=== PATIENT | male | born 1940 | race Caucasian/White ===

== ENCOUNTER → 2017-07-21 | Day surgery (SDC) | payer OTHER ==
[2017-06-12 07:38] VITALS: Ht 177.8 cm; Wt 95.5 kg
[~2017-07-21] VITALS: Ht 177.8 cm; Wt 95.5 kg
[~2017-07-21] MED LIST: 500ML BSS 0.3ML EPI 1:1000PF IRRIG ONE; ACETAMINOPHEN 325 MG TAB PO PRN; ALL300 PO; AMLO-114 PO; AMVISC PLUS 0.8ML SYRINGE INT OCU ONE; APR25 PO; ATROPINE SULFATE 0.1 MG/ML 5ML SYR IV PRN; BSS FLUSH ONE; ERGO500037 PO; EpHEDrine SULFATE INJ 50 MG/ML AMP IV PRN; EpINEphrine INJ 1MG/ML AMP 1 MG/ML AMP ONE; FRS/40 PO; GLIP-197 PO; LACTATED RINGER'S 1000ML 500 ML IV SCH; LEVO75TA5 PO; LIDOCAINE 3.5% OPH GEL PER APPLICATION CHARGE ONE; LIDOCAINE HCL 1% MPF 2 ML VIAL ONE; LISI40TA PO; MAGN400T6 PO; METO1TAB69 PO; MIDAZOLAM HCL 1 MG/ML 2ML VIAL ONE; MIX: 4ML BSS 1ML EPI 1:1000 PF INSTIL ONE; OCUCOAT 1 ML SOLN IO ONE; PANT1TAB48 PO; PHENYLEPHRINE HCL 10% OP SOLN PER DROP CHARGE OPL SCH; POVIDONE-IODINE OP SOLN 30 ML BTL ONE; PROPARACAINE 0.5% OP SOLN PER DROP CHARGE OPL SCH; TAMS0.4C38 PO; TOBRAMYCIN/DEXAMETHASONE OPH OINT PER APPLN CHARGE ONE
[2017-07-21] MEDS: PHENYLEPHRINE HCL 2.5% OP SOLN PER DROP CHARGE OPL SCH ×2 (06:37→06:43)
[2017-07-21] MEDS: TROPICAMIDE 1% OP SOLN PER DROP CHARGE OPL SCH ×2 (06:38→06:44)
[2017-07-21] MEDS: CYCLOPENTOLATE HCL 1% OP SOLN PER DROP CHARGE OPL SCH ×2 (06:39→06:45)
[2017-07-21] MEDS: KETOROLAC 0.5% OP SOLN PER DROP CHARGE OPL SCH ×2 (06:40→06:46)
[2017-07-21] MEDS: GATIFLOXACIN OP SOLN PER DROP CHARGE OPL SCH ×2 (06:41→06:51)
--- NOTE | 2017-07-21 06:53 | History & Physical Bridge - [place] ---
H&P Re-Evaluation Bridge Note: I have examined the patient, reviewed the History & Physical and in the interval since the performance of the History & Physical I have noted the following changes of clinical significance: No changes noted
--- NOTE | 2017-07-21 07:32 | Discharge Instructions-SurgCtr ---
Discharge Instructions Date of Service Jul 21, 2017. Visit Reason for Visit: Cataract Left Eye Discharge Discharge Diagnosis / Problem: cataract Discharge Goals Goal(s): Improve function Activity Recommendations Activity Limitations: per Instructions/Follow-up section Anesthesia . Post Anesthesia Instructions: If you have had General Anesthesia or IV Sedation: * Do not drive today. * Resume driving when surgeon permits. * Do not make important decisions or sign legal documents today. * Call surgeon for: 1. Temperature elevations greater than 101 degrees F. 2. Uncontrollable pain. 3. Excessive bleeding. 4. Persistent nausea and vomiting. 5. Medication intolerance (nausea, vomiting or rash). * For nausea and vomiting use only clear liquids such as: tea, soda, bouillon until nausea subsides, then gradually increase diet as tolerated. * If you have any concerns or questions, call your surgeon's office. If physician is unavailable and it is an emergency, call 911 or go to the nearest emergency room. . Instructions / Follow-Up Instructions / Follow-Up ACTIVITY RECOMMENDATIONS: * No strenuous lifting, jogging or running for 4 days * No swimming or yard work for 1 week. * Limited bending is permitted, such as putting on shoes. RETURN TO SCHOOL/WORK: No work until seen by physician in office. MEDICATIONS: Resume previous medications unless instructed otherwise by your surgeon. This includes eye drops for glaucoma. Zymaxid/Gatifloxacin (wilks cap) - one drop every 2 hours until bedtime Nevanac/Ilevro/Prolensa/Ketorolac (castellanos cap) - one drop every 4 hours until bedtime Prednisolone/Durezol (white/pink cap, SHAKE WELL) - one drop every 2 hours until bedtime Starting tomorrow - all 3 drops every 4 hours until seen in the office Optive drops - as needed for discomfort SPECIAL CARE INSTRUCTIONS: * Wear eyeshield when sleeping, for four nights. * You may wear your own glasses or sunglasses while awake. * You may read or watch TV * You may shower and wash your face, but be gentle around the eye and pat dry. * Blurry vision and mild irritation are normal. * Call office if pain is more severe or vision becomes dark at . FOLLOW UP VISIT: Follow-up with Dr Chicas tomorrow. Diet Recommendations Home Diet: no limitations Procedures Procedures Performed: Left Cataract Phacoemulsification With Intraocular Lens Implant Pending Studies Studies pending at discharge: no Medical Emergencies . Who to Call and When: Medical Emergencies: If at any time you feel your situation is an emergency, please call 911 immediately. . Non-Emergent Contact Non-Emergency issues call your: Coding Educator . . "Provider Documentation" section prepared by Anirudh Chicas. .
--- NOTE | 2017-07-21 07:34 | [facility] Operative Report ---
Operative Report Date of Service Jul 21, 2017. Operative Report 1. PREOPERATIVE DIAGNOSIS: Cataract of the left eye. 2. POSTOPERATIVE DIAGNOSIS: Same. 3. PROCEDURE: Phacoemulsification with intraocular lens implantation of the left eye. SURGEON: Dr. Anirudh Chicas. ANESTHESIA: Topical Lidocaine gel, 1% Non- Preserved intracameral Lidocaine, and monitored intravenous sedation. INDICATIONS FOR THE PROCEDURE: The patient is a 77 - year-old male with a history of cataract of the left eye causing significant visual impairment. The details of the proposed procedure were explained to the patient who asked appropriate questions and following discussion of all risks, benefits and alternatives agreed to have the procedure done. The patient had a know history of taking of flomax. 4. OPERATION AND FINDINGS: DESCRIPTION OF PROCEDURE: After informed consent was obtained, the patient was brought to the Operating Room at the [facility]. The patient was placed in a supine position and then the left eye was prepped and draped in the usual sterile fashion for intraocular surgery. A drop of topical Lidocaine gel was placed in the operative eye. A wire lid speculum was then placed in the fornices. A corneal paracentesis was then created temporally. The Non-Preserved Lidocaine was then instilled into the anterior chamber. The anterior chamber was then pressurized with viscoelastic. A 2.0 mm clear corneal incision was then created temporally. A mayulgin ring was inserted to dilate and stabilize the pupil. A cystotome was inserted into the anterior chamber and used to create a tear in the anterior lens capsule. This capsular tear was then used to create a small flap and the flap was dragged in a counterclockwise direction in order to create a continuous curvilinear capsulorrhexis. Hydrodissection was accomplished with balanced salt solution. Phacoemulsification of the lens nucleus was then performed in a standard divide- and-conquer technique. The phaco time was 35 seconds with an average power of 12 %. The remaining cortical material was removed using irrigation aspiration. The capsular bag was then filled with viscoelastic. A Bausch & Lomb MI60L + 23.0 diopters lens was then loaded into the injector and injected into the capsular bag. The malyugin ring was removed. The remaining viscoelastic was removed with the irrigation aspiration handpiece. The wound was hydrated and then checked and found to be watertight. The intraocular pressure was checked and found to be adequate. The wire lid speculum was removed and the patient's face was cleaned and dried. TobraDex ointment was placed in the inferior fornix. The patient was discharged to the Recovery Room having tolerated the procedure well. There were no complications. The patient will be seen tomorrow in the office for follow-up. I attest to the content of the Intraoperative Record and any orders documented therein. Any exceptions are noted below.
[2017-07-21 07:35] VITALS: TEMP 36.7
--- NOTE | 2017-07-21 07:36 | Anesthesia Progress Nt - [facility] ---
Anesthesia Post Op Note Date & Time Jul 21, 2017 at 07:36 Vital Signs Pain Intensity: 0 Vital Signs Past 12 Hours Date Time Temp Pulse Resp B/P (MAP) Pulse Ox O2 Delivery O2 Flow Rate FiO2 07/21/17 06:27 36.9 66 16 176/81 (112) 97 Room Air Notes Mental Status: alert / awake / arousable, participated in evaluation Pt Amnestic to Procedure: Yes Nausea / Vomiting: adequately controlled Pain: adequately controlled Airway Patency, RR, SpO2: stable & adequate BP & HR: stable & adequate Hydration State: stable & adequate Anesthetic Complications: no major complications apparent
[2017-07-21 07:56] VITALS: BP 145/72; PULSE 54; O2SAT 97
== END | disposition home or self-care (01) ==
LOC: X.SURG 06:07
PROVIDERS: ATTEND Ophthalmology
DX: H26.9 Unspecified cataract (principal); I12.9 Hypertensive chronic kidney disease with stage 1 through stage 4 chronic kidney disease, or unspecified chronic kidney disease; N18.3 Chronic kidney disease, stage 3 (moderate); M06.9 Rheumatoid arthritis, unspecified; K22.70 Barrett's esophagus without dysplasia; K44.9 Diaphragmatic hernia without obstruction or gangrene; H90.3 Sensorineural hearing loss, bilateral; G25.81 Restless legs syndrome; Z86.010 Personal history of colon polyps; Z96.659 Presence of unspecified artificial knee joint; E11.9 Type 2 diabetes mellitus without complications

== ENCOUNTER → 2017-08-18 | Day surgery (SDC) | payer OTHER ==
[2017-07-29 09:46] VITALS: Ht 177.8 cm; Wt 95.5 kg
[~2017-08-18] VITALS: Ht 177.8 cm; Wt 95.5 kg
[~2017-08-18] MED LIST changes: +FENTANYL CITRATE INJ 50 MCG/1 ML 2 ML VIAL ONE; -MIX: 4ML BSS 1ML EPI 1:1000 PF INSTIL ONE; -PHENYLEPHRINE HCL 10% OP SOLN PER DROP CHARGE OPL SCH; +PHENYLEPHRINE HCL 10% OP SOLN PER DROP CHARGE OPR SCH; -PROPARACAINE 0.5% OP SOLN PER DROP CHARGE OPL SCH; +PROPARACAINE 0.5% OP SOLN PER DROP CHARGE OPR SCH
[2017-08-18] MEDS: PHENYLEPHRINE HCL 2.5% OP SOLN PER DROP CHARGE OPR SCH ×2 (07:00→07:08)
[2017-08-18] MEDS: TROPICAMIDE 1% OP SOLN PER DROP CHARGE OPR SCH ×2 (07:01→07:09)
[2017-08-18] MEDS: CYCLOPENTOLATE HCL 1% OP SOLN PER DROP CHARGE OPR SCH ×2 (07:04→07:10)
[2017-08-18] MEDS: KETOROLAC 0.5% OP SOLN PER DROP CHARGE OPR SCH ×2 (07:05→07:11)
[2017-08-18] MEDS: GATIFLOXACIN OP SOLN PER DROP CHARGE OPR SCH ×2 (07:06→07:15)
--- NOTE | 2017-08-18 07:52 | Discharge Instructions-SurgCtr ---
Discharge Instructions Date of Service Aug 18, 2017. Visit Reason for Visit: Right Cataract Discharge Discharge Diagnosis / Problem: cataract Discharge Goals Goal(s): Improve function Medications Stopped Medications Name(s): Only took five medications this morning. Activity Recommendations Activity Limitations: per Instructions/Follow-up section Anesthesia . Post Anesthesia Instructions: If you have had General Anesthesia or IV Sedation: * Do not drive today. * Resume driving when surgeon permits. * Do not make important decisions or sign legal documents today. * Call surgeon for: 1. Temperature elevations greater than 101 degrees F. 2. Uncontrollable pain. 3. Excessive bleeding. 4. Persistent nausea and vomiting. 5. Medication intolerance (nausea, vomiting or rash). * For nausea and vomiting use only clear liquids such as: tea, soda, bouillon until nausea subsides, then gradually increase diet as tolerated. * If you have any concerns or questions, call your surgeon's office. If physician is unavailable and it is an emergency, call 911 or go to the nearest emergency room. . Instructions / Follow-Up Instructions / Follow-Up DAY OF CATARACT SURGERY INSTRUCTIONS: Follow Eye Drop Instructions Below: * Wash hands before instilling eye drops. * Bring ALL EYE DROPS to your appointment tomorrow. * Wait 5 minutes between each eye drop. * Shake bottles well before using. Tape eye shield over the operative eye when sleeping. Eye Drop: ZYMAXID PROLENSA DUREZOL ( wilks Cap) ( Lyons Cap ) ( Baneberry Cap ) DAY OF SURGERY 1 DROP EVERY 2 HOURS 1 DROP EVERY 4 HOURS 1 DROP EVERY 4 HOURS INSTRUCTIONS: UNTIL BEDTIME UNTIL BEDTIME UNTIL BEDTIME DAY AFTER SURGERY INSTRUCTIONS: 1 DROP EVERY4 HOURS OF EACH EYE DROP UNTIL SEEN BY DR. NORWOOD * You may wear your own glasses or sunglasses while awake. You make me watch TV. * Make shower and or wash your face. Be gentle around the eyes and pat dry. * You may return to eating a normal diet. * Strenuous activities such as running, jogging or heavy lifting should be avoided for 4 days. * No yard work or swimming for one week after surgery. * Limited bending is permitted after surgery. And example of this would be putting on shoes. * You may drive 24 hours after your surgery, if you are comfortable with your vision. * Do not make any important decisions or sign legal documents for 24 hours after surgery. This is due to the sedation you received today. * Do not return to work or school until you have been seen by Dr. Chicas. * Resume previous systemic medications; resume eyedrops for Glaucoma. * Blurry vision and a scratchy feeling in the eye after surgery is normal. If your eye feels scratchy use the artificial tear in your post op Kit as needed. * Contact the office immediately if severe pain develops or your vision becomes dark. Address: [address] [place] [phone]. [phone] Fax Address: [address] [place] [phone] Fax Diet Recommendations Home Diet: resume previous diet Procedures Procedures Performed: Right Cataract Phacoemulsification With Intraocular Lens Implant Pending Studies Studies pending at discharge: no Medical Emergencies . Who to Call and When: Medical Emergencies: If at any time you feel your situation is an emergency, please call 911 immediately. . Non-Emergent Contact Non-Emergency issues call your: Human Resource Statistician . . "Provider Documentation" section prepared by Anirudh Chicas. .
[2017-08-18 07:53] VITALS: TEMP 36.4
--- NOTE | 2017-08-18 07:53 | [facility] Operative Report ---
Operative Report Date of Service Aug 18, 2017. Operative Report 1. PREOPERATIVE DIAGNOSIS: Cataract of the right eye. 2. POSTOPERATIVE DIAGNOSIS: Same. 3. PROCEDURE: Phacoemulsification with intraocular lens implantation of the right eye. SURGEON: Dr. Anirudh Chicas. ANESTHESIA: Topical Lidocaine gel, 1% Non- Preserved intracameral Lidocaine, and monitored intravenous sedation. INDICATIONS FOR THE PROCEDURE: The patient is a 77 - year-old male with a history of cataract of the right eye causing significant visual impairment. The details of the proposed procedure were explained to the patient who asked appropriate questions and following discussion of all risks, benefits and alternatives agreed to have the procedure done. The patient had a know history of taking of flomax and a poorly dilating pupil and therefore plans were made preoperatively to use a malyugin ring. 4. OPERATION AND FINDINGS: DESCRIPTION OF PROCEDURE: After informed consent was obtained, the patient was brought to the Operating Room at the [facility]. The patient was placed in a supine position and then the right eye was prepped and draped in the usual sterile fashion for intraocular surgery. A drop of topical Lidocaine gel was placed in the operative eye. A wire lid speculum was then placed in the fornices. A corneal paracentesis was then created temporally. The Non-Preserved Lidocaine was then instilled into the anterior chamber. The anterior chamber was then pressurized with viscoelastic. A 2.0 mm clear corneal incision was then created temporally. The malyugin ring was inserted into the pupil. A cystotome was inserted into the anterior chamber and used to create a tear in the anterior lens capsule. This capsular tear was then used to create a small flap and the flap was dragged in a counterclockwise direction in order to create a continuous curvilinear capsulorrhexis. Hydrodissection was accomplished with balanced salt solution. Phacoemulsification of the lens nucleus was then performed in a standard [id number] technique. The phaco time was 22 seconds with an average power of 8 %. The remaining cortical material was removed using irrigation aspiration. The capsular bag was then filled with viscoelastic. A Bausch & Lomb MI60L +23.0 diopters lens was then loaded into the injector and injected into the capsular bag. The malyugin ring was removed. The remaining viscoelastic was removed with the irrigation aspiration handpiece. The wound was hydrated and then checked and found to be watertight. The intraocular pressure was checked and found to be adequate. The wire lid speculum was removed and the patient's face was cleaned and dried. TobraDex ointment was placed in the inferior fornix. The patient was discharged to the Recovery Room having tolerated the procedure well. There were no complications. The patient will be seen tomorrow in the office for follow-up. I attest to the content of the Intraoperative Record and any orders documented therein. Any exceptions are noted below.
[2017-08-18 08:10] VITALS: BP 152/82; PULSE 59; O2SAT 95
--- NOTE | 2017-08-18 08:13 | Anesthesia Progress Nt - [facility] ---
Anesthesia Post Op Note Date & Time Aug 18, 2017 at 08:13 Vital Signs Vital Signs Past 12 Hours Date Time Temp Pulse Resp B/P (MAP) Pulse Ox O2 Delivery O2 Flow Rate FiO2 08/18/17 08:10 59 16 152/82 (105) 95 Room Air 08/18/17 07:53 36.4 62 18 158/83 (108) 97 Room Air 08/18/17 06:49 36.9 62 20 185/92 (123) 97 Room Air Notes Mental Status: alert / awake / arousable, participated in evaluation Pt Amnestic to Procedure: Yes Nausea / Vomiting: adequately controlled Pain: adequately controlled Airway Patency, RR, SpO2: stable & adequate BP & HR: stable & adequate Hydration State: stable & adequate Anesthetic Complications: no major complications apparent
== END | disposition home or self-care (01) ==
LOC: X.SURG 06:41
PROVIDERS: ATTEND Ophthalmology
DX: H26.9 Unspecified cataract (principal); I10 Essential (primary) hypertension; E11.9 Type 2 diabetes mellitus without complications

== ENCOUNTER 2021-07-22 18:26 | Inpatient (IN) ==
[2021-07-22 22:16] LABS: Basophils # (auto) 0.03 K/uL (0-0.2); Basophils % (auto) 0.4 %; Eosinophils # (auto) 0.48 K/uL (0-0.5); Eosinophils % (auto) 5.6 %; Hematocrit (blood only) 32.5 % (42-52); Hemoglobin 11.3 g/dL (14.0-18.0); Immature Granulocytes # (auto) 0.04 K/uL (0.00-0.02); Immature Granulocytes % (auto) 0.5 %; Lymphocytes # (auto) 2.07 K/uL (1.2-3.4); Lymphocytes % (auto) 24.2 %; Mean Corpuscular Hemoglobin 28.2 pg (25-34); Mean Corpuscular Hgb Conc 34.8 g/dL (32-36); Mean Platelet Volume 9.9 fL (7.4-10.4); Monocytes # (auto) 0.91 K/uL (0.11-0.59); Monocytes % (auto) 10.6 %; Neutrophils # (auto) 5.02 K/uL (1.4-6.5); Neutrophils % (auto) 58.7 %; Platelet Count 127 K/uL (130-400); RDW Coefficient of Variation 17.4 % (11.5-14.5); Red Blood Count 4.01 M/uL (4.7-6.1); White Blood Count 8.55 K/uL (4.8-10.8)
[2021-07-22 22:34] LABS: Alanine Aminotransferase 28 U/L (12-78); Albumin Globulin Ratio 1.2 (0.9-2); Alkaline Phosphatase 78 U/L (45-117); Aspartate Aminotransferase 23 U/L (15-37); Bilirubin,Total 0.8 mg/dl (0.2-1); Blood Urea Nitrogen 64 mg/dl (7-18); Calcium 9.1 mg/dl (8.5-10.1); Carbon Dioxide 27 mmol/L (21-32); Chloride 76 mmol/L (98-107); Creatinine Clr Calc Pharmacy 18.3 ml/min; Est GFR (African American) 16.4 ml/min; Est GFR (Non-African American) 14.2 ml/min; Globulin 3.3 gm/dl (2.5-4.0); Glucose 122 mg/dl (70-99); Potassium 3.2 mmol/L (3.5-5.1); Sodium 117 mmol/L (136-145); Total Protein 7.3 gm/dl (6.4-8.2)
[2021-07-22] MEDS ORDERED: SODIUM CHLORIDE 3 % 100 ML IV ONE (22:45)
[2021-07-22] MEDS ORDERED: FAMOTIDINE 20MG IV PUSH 20 MG/5 ML SYR IV STA (22:49)
[2021-07-22 23:01] LABS: Bilirubin Direct 0.2 mg/dl (0-0.2); Magnesium 2.1 mg/dl (1.8-2.4); Troponin I < 0.015 ng/ml (0-0.045)
[2021-07-23 00:23] LABS: Appearance Urine Clear (Clear); Bilirubin Urine Negative (Negative); Blood Urine Negative (Negative); Color Urine Yellow; Glucose Urine UA Negative (Negative); Ketones Urine Negative (Negative); Leukocyte Esterase Urine Negative (Negative); Nitrite Urine Negative (Negative); Protein Urine Negative (Negative); Specific Gravity Urine 1.007 (1.000-1.030); Urobilinogen Urine Negative (Negative); pH Urine 7.5 (4.5-7.5)
[2021-07-23 00:26] LABS: BUN Creatinine Ratio 17.1 (10-20); Calcium 9.1 mg/dl (8.5-10.1); Creatinine Clr Calc Pharmacy 18.4 ml/min; Est GFR (African American) 16.5 ml/min; Est GFR (Non-African American) 14.3 ml/min; Potassium 3.3 mmol/L (3.5-5.1)
[2021-07-23] MEDS ORDERED: SODIUM CHLORIDE 3 % 100 ML IV STA (00:55)
--- NOTE | 2021-07-23 01:01 | Emergency Department Note ---
Impression & Plan Hyponatremia, CKD (chronic kidney disease), Hypokalemia ED Provider Note NAME: WOJCIECH QUINONES AGE: 81 SEX: M ARRIVES VIA: Walk-In INFORMANT: Patient, ED PROVIDER(S): Tex Pedraza MD CHIEF COMPLAINT: Referred. Low sodium. Weak. PLAN: Disposition: Admit MEDICAL DECISION MAKING: The patient is a pleasant 81-year-old gentleman with pmhx of HTN, HLD, CKD, COPD, DM2, Hypothyroidism, BPH, Afib on Coumadin who presents emergency depa rtment for evaluation of low sodium which was identified on outpatient blood work where he reports being referred to emergency department because it was "critically low". Initially, the patient denies any symptoms however eventually did realize that he has been weaker with mild nausea, decreased appetite, fatigue and increased sleepiness. On arrival the patient is fatigued appearing but no acute distress, afebrile stable vital signs. He is mentating normally. He has no focal neurologic def icits. EKG shows afib without overt acute ischemia. No recent EKG for comparison. WBC within normal limits. H/H 11.3/32.5 and platelets 127K without prior values for comparison. Chemistry without metabolic acidosis. Sodium was 117 without prior values for comparison. Creatinine 3.76 also without prior values for comparison. Otherwise, electrolytes and LFTs without significant abnormality. Troponin negative/undetectable. UA without evidence of infection. Blood osmolality is 262 and urine osmolality 223 c/w hypervolemia. Covid-19 PCR was negative. Patient and his were agreement with plan for admission given critical sodium value. He was ordered for initial dose 100 mL of 3% normal saline. Case was discussed with Dr. Tillman, [facility] hospitalist, who will evaluate the patient for admission. Triage Nursing notes reviewed and agree them. Prior medical records reviewed Vital Signs: reviewed and remarkable for no significant abnormalities Differential diagnosis: Infection, dehydration, metabolic abnormality, hypo/hyperglycemia, electrolyte disturbance, anemia, hypoxia, cardiac sources, intracerebral event, toxicologic, neurologic, as well as other pathologies. ER treatment provided: See below. Diagnostics interpreted by me: ECG: Atrial fibrillation, 57 bpm, no ectopy, non-specific ST abnormality, no overt ST elevation or depression. Cardiac Monitoring: An order for continuous cardiac monitoring was placed and demonstrated Atrial fibrillation, 57 bpm, no ectopy. Laboratory studies: See below Consultation(s): Case was discussed with Dr. Tillman, [facility] hospitalist, who will evaluate the patient for admission. HPI: The patient is a pleasant 81-year-old gentleman with pmhx of HTN, HLD, CKD, COPD, DM2, Hypothyroidism, BPH, Afib on Coumadin who presents emergency department for evaluation of low sodium which was identified on outpatient blood work where he reports being referred to emergency department because it was "critically low". Initially, the patient denies any symptoms however eventually did realize that he has been weaker with mild nausea, decreased appetite, fatigue and increased sleepiness. ROS: See above HPI for pertinent positives & negatives. A total of 10 systems reviewed and were otherwise negative. PAST MEDICAL HISTORY:See Below PAST SURGICAL HISTORY:See Below FAMILY HISTORY:See Below SOCIAL HISTORY:See Below HOME MEDICATIONS:See Below ALLERGIES:See Below VITALS:See Below PHYSICAL EXAMINATION: GENERAL: Awake, alert, fatigued-appearing, in no distress HENT: Normocephalic, atraumatic. Oropharynx unremarkable. EYES: Normal conjunctiva. Sclera non-icteric. NECK: Supple. No nuchal rigidity. FROM. No JVD. RESPIRATORY: Clear to auscultation. CARDIAC: Regular rate, irregular rhythm. Extremities warm and well perfused. Pulses equal. ABDOMEN: Soft, non-distended. No tenderness to palpation. No rebound or guarding. No masses. RECTAL: Deferred. MUSCULOSKELETAL: Chest examination reveals no tenderness. The back is symmetrical on inspection without obvious abnormality. There is no CVA tenderness to palpation. No joint edema. LOWER EXTREMITIES: Calves are equal size bilaterally and non-tender. BLE edema. No discoloration. NEURO: Normal sensorium. No sensory or motor deficits noted. SKIN: No rash or jaundice noted. ED COURSE: Critical Care: I have personally spent greater than 35 minutes of critical care time in the direct management of this patient. This includes bedside care, interpretation of diagnostic studies, and testing, discussion with consultants, patient, and family members, and other required patient management activities. This 35 minutes is in excess of all separately billable procedures. Tex Pedraza MD Past Med/Surg History Medical History Atrial fibrillation BPH (benign prostatic hyperplasia) CKD (chronic kidney disease) COPD (chronic obstructive pulmonary disease) Hyperlipidemia Hypertension Type 2 diabetes mellitus Family History Other Family history non-contributory Social History Smoking Status: Never smoker Second Hand Exposure: No; Do You Dip or Chew Tobacco: No; Tobacco Cessation Education Requested by Patient: No Hx Alcohol Use: No Hx Substance Use: No Preferred Language: Malay Communication Ability: Effective Beliefs That Will Affect Care: None marital status: Current Living Situation: Spouse Other Information That Helps Us Care for You: No Feels Safe at Home: Yes Safety Concerns: Feels Safe At This Time Assistive Devices: Cane Allergies Allergies Allergy/AdvReac Type Severity Reaction Status Date / Time morphine AdvReac Intermediate "HALLUCINAT Verified 07/23/21 01:40 E" oxycodone AdvReac Intermediate "HALLUCINAT Verified 07/23/21 01:40 E" Penicillins AdvReac Unknown HALLUCINATI Unverified 07/23/21 01:40 ONS Home Meds Home Medications Medication Instructions Recorded Confirmed Robitussin 12 Hr Cough 0 ml PO UD 07/23/21 07/23/21 albuterol sulfate 2.5 mg INHALATION UD PRN 07/23/21 07/23/21 albuterol sulfate 90 mcg/actuation 2 puff INHALATION Q4 PRN 07/23/21 07/23/21 aerosol inhaler allopurinol 300 mg tablet 300 mg PO DAILY 07/23/21 07/23/21 amlodipine 2.5 mg tablet 2.5 mg PO DAILY 07/23/21 07/23/21 ascorbic acid (vitamin C) 500 mg 500 mg PO DAILY 07/23/21 07/23/21 tablet (Vitamin C) calcitriol 0.25 mcg capsule 0.25 mcg PO DAILY 07/23/21 07/23/21 ergocalciferol (vitamin D2) 1,250 50,000 unit PO WK 07/23/21 07/23/21 mcg (50,000 unit) capsule (Vitamin D2) gabapentin 100 mg capsule 100 mg PO TID 07/23/21 07/23/21 garlic 1,000 mg capsule 1,000 mg PO DAILY 07/23/21 07/23/21 glipizide 5 mg tablet 2.5 mg PO DIRECTED 07/23/21 07/23/21 hydralazine 100 mg tablet 100 mg PO BID 07/23/21 07/23/21 isosorbide dinitrate 20 mg tablet 20 mg PO BID 07/23/21 07/23/21 levothyroxine 88 mcg tablet 88 mcg PO DAILY 07/23/21 07/23/21 magnesium oxide 400 mg (241.3 mg 400 mg PO DAILY 07/23/21 07/23/21 magnesium) tablet metolazone 5 mg tablet 5 mg PO 3XWK 07/23/21 07/23/21 metoprolol succinate 100 mg 100 mg PO BID 07/23/21 07/23/21 tablet,extended release 24 hr multivitamin 1 tab PO DAILY 07/23/21 07/23/21 omega-3 fatty acids 1,000 mg PO DAILY 07/23/21 07/23/21 pantoprazole 40 mg tablet,delayed 40 mg PO DAILY 07/23/21 07/23/21 release tamsulosin 0.4 mg capsule 0.4 mg PO DAILY 07/23/21 07/23/21 torsemide 100 mg tablet 100 mg PO DAILY 07/23/21 07/23/21 tramadol 50 mg tablet 50 mg PO Q6H PRN 07/23/21 07/23/21 vitamin E 400 unit tablet 400 unit PO DAILY 07/23/21 07/23/21 warfarin 2.5 mg tablet 0 mg PO UD 07/23/21 07/23/21 Results & Data (ED) Vital Signs Vital Signs - 24 hr 07/22/21 18:46 07/22/21 22:16 07/22/21 23:00 Temperature 36.6 C Temperature Source Temporal Artery Scan Pulse Rate 72 64 56 L Pulse Rate from SpO2 Sensor 61 57 L Pulse Rhythm Regular Pulse Strength Normal Respiratory Rate 16 18 14 Respiratory Effort / Characteristics Non-Labored Respiratory Depth Normal Respiratory Pattern Regular Blood Pressure 107/68 144/75 H 136/82 Blood Pressure Mean 81 98 100 Blood Pressure Position Sitting Pulse Oximetry 96 100 98 Oxygen Delivery Method Room Air Sepsis Recent Fever Within 48 Hours No Sepsis New/Unexplained Change in Mental Status N/A Sepsis Action Taken by Nursing No Action Required 07/23/21 00:06 07/23/21 00:30 Temperature Temperature Source Pulse Rate 59 L 56 L Pulse Rate from SpO2 Sensor 52 L Pulse Rhythm Pulse Strength Respiratory Rate 14 19 Respiratory Effort / Characteristics Respiratory Depth Respiratory Pattern Blood Pressure 150/80 H 130/80 Blood Pressure Mean 103 96 Blood Pressure Position Pulse Oximetry 98 99 Oxygen Delivery Method Room Air Sepsis Recent Fever Within 48 Hours Sepsis New/Unexplained Change in Mental Status Sepsis Action Taken by Nursing Laboratory Data Attestation: I reviewed the patient's lab results. Result diagrams: 07/23/21 02:56 07/23/21 18:35 Lab Results 07/22/21 07/22/21 07/22/21 Range/Units 21:50 21:50 22:40 WBC 8.55 (4.8-10.8) K/uL RBC 4.01 L (4.7-6.1) M/uL Hgb 11.3 L (14.0-18.0) g/dL Hct 32.5 L (42-52) % MCV 81.0 (80-100) fL MCH 28.2 (25-34) pg MCHC 34.8 (32-36) g/dL RDW Std Deviation 51.0 H (36.4-46.3) fL RDW Coeff of Yanira 17.4 H (11.5-14.5) % Plt Count 127 L (130-400) K/uL MPV 9.9 (7.4-10.4) fL Immature Gran % (Auto) 0.5 % Neut % (Auto) 58.7 % Lymph % (Auto) 24.2 % [place] % (Auto) 10.6 % Eos % (Auto) 5.6 % Baso % (Auto) 0.4 % Neut # (Auto) 5.02 (1.4-6.5) K/uL Lymph # (Auto) 2.07 (1.2-3.4) K/uL [place] # (Auto) 0.91 H (0.11-0.59) K/uL Eos # (Auto) 0.48 (0-0.5) K/uL Baso # (Auto) 0.03 (0-0.2) K/uL Immature Gran # (Auto) 0.04 H (0.00-0.02) K/uL Sodium 117 L* (136-145) mmol/L Potassium 3.2 L (3.5-5.1) mmol/L Chloride 76 L (98-107) mmol/L Carbon Dioxide 27 (21-32) mmol/L Anion Gap 14.0 H (3-11) BUN 64 H (7-18) mg/dl Creatinine 3.78 H (0.6-1.4) mg/dl Est Cr Clr Drug Dosing 18.3 ml/min Est GFR ( Amer) 16.4 ml/min Est GFR (Non-Af Amer) 14.2 ml/min BUN/Creatinine Ratio 17.0 (10-20) Glucose 122 H (70-99) mg/dl Osmolality (280-300) mOsm/kg Calcium 9.1 (8.5-10.1) mg/dl Phosphorus 4.0 (2.5-4.9) mg/dl Magnesium 2.1 (1.8-2.4) mg/dl Total Bilirubin 0.8 (0.2-1) mg/dl Direct Bilirubin 0.2 (0-0.2) mg/dl AST 23 (15-37) U/L ALT 28 (12-78) U/L Alkaline Phosphatase 78 (45-117) U/L Troponin I < 0.015 (0-0.045) ng/ml Total Protein 7.3 (6.4-8.2) gm/dl Albumin 4.0 (3.4-5.0) gm/dl Globulin 3.3 (2.5-4.0) gm/dl Albumin/Globulin Ratio 1.2 (0.9-2) Urine Color Urine Appearance (Clear) Urine pH (4.5-7.5) Ur Specific [place] (1.000-1.030) Urine Protein (Negative) Urine Glucose (UA) (Negative) Urine Ketones (Negative) Urine Blood (Negative) Urine Nitrite (Negative) Urine Bilirubin (Negative) Urine Urobilinogen (Negative) Ur Leukocyte Esterase (Negative) Urine Osmolality (500-800) mOsm/kg Ur Random Sodium mmol/L COVID-19 Eval Order Covid19 at [facility] SARS-CoV-2 (PCR) (Negative) 07/22/21 07/22/21 07/22/21 Range/Units 22:40 22:47 22:48 WBC (4.8-10.8) K/uL RBC (4.7-6.1) M/uL Hgb (14.0-18.0) g/dL Hct (42-52) % MCV (80-100) fL MCH (25-34) pg MCHC (32-36) g/dL RDW Std Deviation (36.4-46.3) fL RDW Coeff of Yanira (11.5-14.5) % Plt Count (130-400) K/uL MPV (7.4-10.4) fL Immature Gran % (Auto) % Neut % (Auto) % Lymph % (Auto) % [place] % (Auto) % Eos % (Auto) % Baso % (Auto) % Neut # (Auto) (1.4-6.5) K/uL Lymph # (Auto) (1.2-3.4) K/uL [place] # (Auto) (0.11-0.59) K/uL Eos # (Auto) (0-0.5) K/uL Baso # (Auto) (0-0.2) K/uL Immature Gran # (Auto) (0.00-0.02) K/uL Sodium 118 L* (136-145) mmol/L Potassium 3.3 L (3.5-5.1) mmol/L Chloride 77 L (98-107) mmol/L Carbon Dioxide 27 (21-32) mmol/L Anion Gap 14.0 H (3-11) BUN 64 H (7-18) mg/dl Creatinine 3.76 H (0.6-1.4) mg/dl Est Cr Clr Drug Dosing 18.4 ml/min Est GFR ( Amer) 16.5 ml/min Est GFR (Non-Af Amer) 14.3 ml/min BUN/Creatinine Ratio 17.1 (10-20) Glucose 128 H (70-99) mg/dl Osmolality 262 L (280-300) mOsm/kg Calcium 9.1 (8.5-10.1) mg/dl Phosphorus (2.5-4.9) mg/dl Magnesium (1.8-2.4) mg/dl Total Bilirubin (0.2-1) mg/dl Direct Bilirubin (0-0.2) mg/dl AST (15-37) U/L ALT (12-78) U/L Alkaline Phosphatase (45-117) U/L Troponin I (0-0.045) ng/ml Total Protein (6.4-8.2) gm/dl Albumin (3.4-5.0) gm/dl Globulin (2.5-4.0) gm/dl Albumin/Globulin Ratio (0.9-2) Urine Color Urine Appearance (Clear) Urine pH (4.5-7.5) Ur Specific [place] (1.000-1.030) Urine Protein (Negative) Urine Glucose (UA) (Negative) Urine Ketones (Negative) Urine Blood (Negative) Urine Nitrite (Negative) Urine Bilirubin (Negative) Urine Urobilinogen (Negative) Ur Leukocyte Esterase (Negative) Urine Osmolality (500-800) mOsm/kg Ur Random Sodium mmol/L COVID-19 Eval Order SARS-CoV-2 (PCR) NEGATIVE (Negative) 07/23/21 07/23/21 07/23/21 Range/Units 00:06 00:06 00:06 WBC (4.8-10.8) K/uL RBC (4.7-6.1) M/uL Hgb (14.0-18.0) g/dL Hct (42-52) % MCV (80-100) fL MCH (25-34) pg MCHC (32-36) g/dL RDW Std Deviation (36.4-46.3) fL RDW Coeff of Yanira (11.5-14.5) % Plt Count (130-400) K/uL MPV (7.4-10.4) fL Immature Gran % (Auto) % Neut % (Auto) % Lymph % (Auto) % [place] % (Auto) % Eos % (Auto) % Baso % (Auto) % Neut # (Auto) (1.4-6.5) K/uL Lymph # (Auto) (1.2-3.4) K/uL [place] # (Auto) (0.11-0.59) K/uL Eos # (Auto) (0-0.5) K/uL Baso # (Auto) (0-0.2) K/uL Immature Gran # (Auto) (0.00-0.02) K/uL Sodium (136-145) mmol/L Potassium (3.5-5.1) mmol/L Chloride (98-107) mmol/L Carbon Dioxide (21-32) mmol/L Anion Gap (3-11) BUN (7-18) mg/dl Creatinine (0.6-1.4) mg/dl Est Cr Clr Drug Dosing ml/min Est GFR ( Amer) ml/min Est GFR (Non-Af Amer) ml/min BUN/Creatinine Ratio (10-20) Glucose (70-99) mg/dl Osmolality (280-300) mOsm/kg Calcium (8.5-10.1) mg/dl Phosphorus (2.5-4.9) mg/dl Magnesium (1.8-2.4) mg/dl Total Bilirubin (0.2-1) mg/dl Direct Bilirubin (0-0.2) mg/dl AST (15-37) U/L ALT (12-78) U/L Alkaline Phosphatase (45-117) U/L Troponin I (0-0.045) ng/ml Total Protein (6.4-8.2) gm/dl Albumin (3.4-5.0) gm/dl Globulin (2.5-4.0) gm/dl Albumin/Globulin Ratio (0.9-2) Urine Color Yellow Urine Appearance Clear (Clear) Urine pH 7.5 (4.5-7.5) Ur Specific [place] 1.007 (1.000-1.030) Urine Protein Negative (Negative) Urine Glucose (UA) Negative (Negative) Urine Ketones Negative (Negative) Urine Blood Negative (Negative) Urine Nitrite Negative (Negative) Urine Bilirubin Negative (Negative) Urine Urobilinogen Negative (Negative) Ur Leukocyte Esterase Negative (Negative) Urine Osmolality 223 L (500-800) mOsm/kg Ur Random Sodium 50 mmol/L COVID-19 Eval Order SARS-CoV-2 (PCR) (Negative) Administered Medications Allopurinol (Allopurinol 300 Mg Tab) 300 mg PO DAILY ASIM Stop: 08/22/21 08:59 Last Admin: 07/23/21 07:58 Dose: 300 mg Documented by: [id number] Amlodipine Besylate (Amlodipine Besylate 5 Mg Tab) 2.5 mg PO DAILY ASIM Stop: 08/22/21 08:59 Last Admin: 07/23/21 07:58 Dose: 2.5 mg Documented by: [id number] Ascorbic Acid (Ascorbic Acid 500 Mg Tab) 500 mg PO DAILY ASIM Stop: 08/22/21 08:59 Last Admin: 07/23/21 07:58 Dose: 500 mg Documented by: [id number] Calcitriol (Calcitriol 0.25 Mcg Capsule) 0.25 mcg PO DAILY ASIM Stop: 08/22/21 08:59 Last Admin: 07/23/21 07:57 Dose: 0.25 mcg Documented by: [id number] Gabapentin (Gabapentin 100 Mg Cap) 100 mg PO TID ASIM Stop: 08/22/21 08:59 Last Admin: 07/23/21 21:29 Dose: 100 mg Documented by: [id number] Admin: 07/23/21 14:00 Dose: 100 mg Documented by: [id number] Admin: 07/23/21 07:57 Dose: 100 mg Documented by: [id number] Hydralazine HCl (Hydralazine Tab 50 Mg Tab) 100 mg PO BID ASIM Stop: 08/22/21 08:59 Last Admin: 07/23/21 21:30 Dose: 100 mg Documented by: [id number] Admin: 07/23/21 07:57 Dose: 100 mg Documented by: [id number] Insulin Aspart (Insulin Aspart 100 Units/Ml 3 Ml Pen) 0 units SC ACHS ASIM Stop: 08/22/21 07:29 Last Admin: 07/23/21 22:13 Dose: Not Given Documented by: [id number] Cosigned by: [id number] Admin: 07/23/21 16:50 Dose: Not Given Documented by: [id number] Admin: 07/23/21 13:04 Dose: Not Given Documented by: [id number] Admin: 07/23/21 07:55 Dose: 3 units Documented by: [id number] Cosigned by: [id number] Isosorbide Dinitrate (Isosorbide Dinitrate 20 Mg Tab) 20 mg PO BID@0700,1200 AISM Stop: 08/22/21 06:59 Last Admin: 07/23/21 13:05 Dose: Not Given Documented by: [id number] Admin: 07/23/21 07:56 Dose: 20 mg Documented by: [id number] Levothyroxine Sodium (Levothyroxine Sodium 88 Mcg Tablet) 88 mcg PO DAILYBB [facility] Stop: 08/22/21 06:29 Last Admin: 07/23/21 05:57 Dose: 88 mcg Documented by: [id number] Magnesium Oxide (Magnesium Oxide 400 Mg Tab) 400 mg PO DAILY ASIM Stop: 08/22/21 08:59 Last Admin: 07/23/21 07:56 Dose: 400 mg Documented by: [id number] Metoprolol Succinate (Metoprolol Succ 50mg Ext Rel Tab) 100 mg PO BID ASIM Stop: 08/22/21 08:59 Last Admin: 07/23/21 21:31 Dose: Not Given Documented by: [id number] Admin: 07/23/21 07:57 Dose: 100 mg Documented by: [id number] Multivitamins (Multivitamin Tab) 1 tab PO DAILY ASIM Stop: 08/22/21 08:59 Last Admin: 07/23/21 07:57 Dose: 1 tab Documented by: [id number] Ondansetron HCl (Ondansetron Inj 2 Mg/Ml 2 Ml Vial) 4 mg IV Q6H PRN PRN Reason: Nausea Stop: 08/22/21 02:11 Last Admin: 07/23/21 04:50 Dose: 4 mg Documented by: [id number] Pantoprazole Sodium (Pantoprazole 40 Mg Tab) 40 mg PO DAILY ASIM Stop: 08/22/21 08:59 Last Admin: 07/23/21 07:58 Dose: 40 mg Documented by: [id number] Sodium Chloride (Sodium Chloride 1 Gm Tablet) 1 gm PO BID ASIM Stop: 08/22/21 20:59 Last Admin: 07/23/21 21:57 Dose: 1 gm Documented by: [id number] Tamsulosin HCl (Tamsulosin Hcl 0.4 Mg Cap) 0.4 mg PO DAILY ASIM Stop: 08/22/21 08:59 Last Admin: 07/23/21 07:57 Dose: 0.4 mg Documented by: [id number] Torsemide (Torsemide 100 Mg Tab) 100 mg PO QAM ASIM Stop: 08/22/21 11:59 Last Admin: 07/23/21 12:45 Dose: 100 mg Documented by: [id number] Warfarin Sodium (Warfarin Sod 2.5 Mg Tab) 2.5 mg PO DAILY@1600 ASIM Stop: 08/22/21 15:59 Last Admin: 07/23/21 16:49 Dose: 2.5 mg Documented by: [id number] Discontinued Medications Sodium Chloride (Hypertonic Saline 3%) 100 mls @ 600 mls/hr IV .Q10M ONE Stop: 07/22/21 22:54 Last Infusion: 07/22/21 23:25 Dose: 0 mls/hr Documented by: [id number] Cosigned by: [id number] Admin: 07/22/21 23:14 Dose: 600 mls/hr Documented by: [id number] Cosigned by: [id number] Famotidine (Pepcid 20mg Iv Push) 20 mg in 5 mls @ 2.5 mls/min IV NOW STA Stop: 07/22/21 22:50 Last Admin: 07/22/21 23:12 Dose: 2.5 mls/min Documented by: [id number] Sodium Chloride (Hypertonic Saline 3%) 100 mls @ 600 mls/hr IV .Q10M STA Stop: 07/23/21 01:04 Last Infusion: 07/23/21 01:40 Dose: 0 mls/hr Documented by: [id number] Cosigned by: [id number] Admin: 07/23/21 01:27 Dose: 600 mls/hr Documented by: [id number] Cosigned by: [id number] Potassium Chloride (K Sergio / Wtr) 10 meq in 100 mls @ 100 mls/hr IV Q1H ASIM Stop: 07/23/21 05:44 Last Infusion: 07/23/21 08:05 Dose: 0 mls/hr Documented by: [id number] Admin: 07/23/21 05:55 Dose: 50 mls/hr Documented by: [id number] Infusion: 07/23/21 05:30 Dose: 0 mls/hr Documented by: [id number] Admin: 07/23/21 04:05 Dose: 100 mls/hr Documented by: [id number] Furosemide 80 mg/ Syringe 8 mls @ 4 mls/min IV ONE ONE Stop: 07/23/21 21:01 Last Admin: 07/23/21 21:58 Dose: 4 mls/min Documented by: [id number] Potassium Chloride (Potassium Chloride Crtab 20 Meq Tabcr) 20 meq PO NOW STA Stop: 07/23/21 01:09 Last Admin: 07/23/21 01:25 Dose: 20 meq Documented by: [id number] Potassium Chloride (Potassium Chloride Crtab 20 Meq Tabcr) 20 meq PO NOW STA Stop: 07/23/21 03:29 Last Admin: 07/23/21 04:05 Dose: 20 meq Documented by: [id number] Discharge Plan Visit Data Chief Complaint: Abnormal Labs/Diagnostic Testing Stated Complaint: ABNORMAL LABS, LOW SODIUM Discharge Problem: Hyponatremia, CKD (chronic kidney disease), Hypokalemia Patient Disposition: Admitted As Inpatient Discharge Instructions Interventions: ED Discharge Assessment Last Done: 07/23/21 02:03
[2021-07-23] MEDS ORDERED: POTASSIUM CHLORIDE CRTAB 20 MEQ TABCR PO STA ×2 (01:08→03:28)
--- NOTE | 2021-07-23 01:58 | History and Physical Report ---
DATE OF ADMISSION: 07/23/2021. CHIEF COMPLAINT: Hyponatremia. 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 Lives with his , presents with abnormal labs of low sodium. The patient is having problems with his lower extremity edema and his diuretic dose was recently adjusted to torsemide 100 mg b.i.d., but recent labs yesterday showed sodium of 121. His metolazone dose was adjusted and torsemide he was advised to take only once daily and today again labs showed a sodium of 116. He was advised to go to ER. Here in the ER, his sodium was 117. He says he had some nausea early in the morning, but that is improved now. After 100 mL of hypertonic saline, sodium came up to 118. Currently, resting comfortably, hemodynamically stable. Denies any headache, no dizziness, no blurred vision, no earache, no runny nose, no sore throat, no cough. Appetite is okay, swallows okay. No chest pain, no shortness of breath. Currently no nausea, no abdominal pain. Somewhat constipated. No blood in the stools. Normal micturition. No burning micturition. No hematuria. Says his edema of the legs is same. He has some skin changes on the left rose. ALLERGIES: MORPHINE, OXYCODONE, PENICILLINS. PAST MEDICAL HISTORY: As mentioned above. PAST SURGICAL HISTORY: Total knee arthroplasty, carpal tunnel surgery, colonoscopy,, ear surgery, amputation of the right index finger, back surgery, injection of lumbosacral spine, knee arthroscopy, rhinoplasty, cataract surgery, cervical laminectomy, tonsillectomy, adenoidectomy, inguinal hernia repair, left rotator cuff repair, palliative pharyngoplasty. MEDICATIONS: The patient is on torsemide 100 mg p.o. daily currently, hydralazine 100 mg p.o. b.i.d., metolazone 5 mg one tablet one week 2 days and another week 3 days, amlodipine 2.5 mg p.o. daily, gabapentin 100 mg p.o. t.i.d., vitamin D 50,000 units 1 capsule p.o. weekly, allopurinol 300 mg p.o. daily, calcitriol 0.5 mcg p.o. daily, glipizide 2.5 mg p.o. b.i.d., isosorbide dinitrate 20 mg p.o. b.i.d., levothyroxine 88 mcg p.o. daily, magnesium oxide 400 mg p.o. daily, metoprolol succinate 100 mg p.o. b.i.d., Protonix 40 mg p.o. daily, Flomax 0.4 mg p.o. daily, warfarin as directed, ProAir 2 puffs q. 4 hours p.r.n., tramadol 50 mg p.o. q. 6 hours p.r.n., fish oil 1 gram p.o. daily, multivitamin one tablet p.o. daily, vitamin C 500 mg p.o. daily, vitamin E 400 units p.o. daily, albuterol nebulization q. 4 hours p.r.n. FAMILY HISTORY: Significant for brother had liver cancer; mother had lung cancer; father has gastrointestinal disorders. SOCIAL HISTORY: , no smoking. Alcohol, rarely. No drug use. REVIEW OF SYSTEMS: As per HPI. Rest of the review of systems is negative. PHYSICAL EXAMINATION: GENERAL: The patient is obese, not in acute distress. VITAL SIGNS: Temperature 36.6, pulse 56, respiratory rate 19, blood pressure 130/80, oxygen 99% on room air. HEENT: Pupils equal, round and reactive to light. Oral mucosa moist. NECK: No JVD. No neck masses. CARDIOVASCULAR: S1 and S2 heard. Regular rate and rhythm. No murmur, no gallop. RESPIRATORY SYSTEM: Normal AP diameter. No accessory muscle use. No wheezing, no crackles. ABDOMEN: Soft, bowel sounds present, nontender, no distention. CENTRAL NERVOUS SYSTEM: Alert and oriented. Speech is clear. No facial droop. Obeys commands. Moves extremities. EXTREMITIES: Bilateral lower extremity edema present with some skin changes on the left rose. LABORATORY DATA: WBC 8.5, hemoglobin 11.3, hematocrit 32.5, platelets 127. Sodium 118, potassium 3.3, chloride 77, bicarbonate 27, BUN 64, creatinine 3.76, serum glucose 128, serum osmolality 262, calcium 9.1, phosphorus 4, magnesium 2.1, total bilirubin 0.8, direct bilirubin 0.2, AST 23, ALT 28, alkaline phosphatase 78. Troponin I less than 0.015. Urinalysis negative. Urine osmolality 223. Urine random sodium 50. SARS-CoV-2 PCR negative. EKG: Atrial fibrillation, slow ventricular response at a rate of 57, nonspecific ST abnormalities. ASSESSMENT AND PLAN: This is an 81-year-old male who presents with hyponatremia. 1. Hyponatremia: Initially had some nausea, but currently asymptomatic. His sodium is 117 here. He was on torsemide and metolazone at home, which we will hold. Recently the medications were adjusted. His sodium was 138 in March 2021, was 121 in June 2021. He received 100 mL of hypertonic saline in the ER and it raised sodium from 117 to 118. Discussed with nephrology. Recommended another 100 mL of hypertonic saline and repeat labs in the morning and will repeat BMP q. 4 hours after that and nephro consult in a.m. and closely monitor in the tele floor. 2. Hypokalemia: Will replace. 3. Acute kidney injury on chronic kidney disease stage IV: Baseline creatinine of 3.3, currently creatinine of 3.76. Holding diuretics Will monitor the blood pressure in the a.m. Will monitor labs in the a.m. 4. History of hypertension: On hydralazine, Toprol-XL, amlodipine, isosorbide dinitrate. Will monitor the blood pressure. Currently holding diuretics. 5. History of diabetes: Will hold his glipizide. Placed him on insulin sliding scale. Follow the blood sugars. Follow HbA1c level. 6. History of gastroesophageal reflux disease: Continue Protonix. 7. History of atrial fibrillation: Rate controlled on Toprol-XL and Coumadin. Follow the PT/INR. 8. Benign prostatic hypertrophy: On Flomax. 9. Gout: On allopurinol. 10. Lower extremity edema, mostly from renal disease: Will monitor. 11. Thrombocytopenia: Will follow the repeat labs, needs followup. 12. Deep venous thrombosis prophylaxis: Will place on heparin subcutaneous. DISPOSITION: Closely monitor in the tele floor. Level I full code as per my discussion with the patient. PT, OT prior to discharge. Social service to help with discharge planning. Job ID: [id number] MTDD
[2021-07-23] MEDS ORDERED: POLYETHYLENE (MIRALAX) 17 GM PACK PO PRN (02:12)
[2021-07-23] MEDS ORDERED: ONDANSETRON INJ 2 MG/ML 2 ML VIAL IV PRN (02:12)
[2021-07-23] MEDS ORDERED: NITROGLYCERIN SL 0.4 MG/TAB TAB SL PRN (02:12)
[2021-07-23] MEDS ORDERED: ACETAMINOPHEN 325 MG TAB PO PRN (02:12)
[2021-07-23] MEDS ORDERED: ALBUTEROL HFA 8 GM INHALER INH PRN (02:37)
[2021-07-23] MEDS ORDERED: ALBUTEROL 0.083% NEBU SOLN 3 ML VIAL INH PRN (02:37)
[2021-07-23] MEDS ORDERED: traMADol HCL 50 MG TABLET PO PRN (02:37)
[2021-07-23 03:08] LABS: Mean Corpuscular Hgb Conc 34.9 g/dL (32-36)
[2021-07-23 03:24] LABS: INR 1.2 (0.9-1.1); Prothrombin Time 11.9 Seconds (9.0-12.0)
[2021-07-23 03:26] LABS: BUN Creatinine Ratio 18.2 (10-20); Calcium 9.1 mg/dl (8.5-10.1); Creatinine Clr Calc Pharmacy 19.3 ml/min; Est GFR (African American) 17.5 ml/min; Est GFR (Non-African American) 15.1 ml/min; Magnesium 2.2 mg/dl (1.8-2.4); Phosphorus 4.4 mg/dl (2.5-4.9)
[2021-07-23 03:27] LABS: Hematocrit (blood only) 31.2 % (42-52); Hemoglobin 10.9 g/dL (14.0-18.0); Mean Corpuscular Hemoglobin 28.2 pg (25-34); Mean Corpuscular Volume 80.8 fL (80-100); RDW Coefficient of Variation 17.2 % (11.5-14.5); RDW Standard Deviation 50.5 fL (36.4-46.3); Red Blood Count 3.86 M/uL (4.7-6.1); White Blood Count 6.53 K/uL (4.8-10.8)
[2021-07-23 03:30] LABS: Mean Platelet Volume 10.6 fL (7.4-10.4); Platelet Count 108 K/uL (130-400)
--- NOTE | 2021-07-23 03:30 | Critical Care Consultation ---
Date of Consultation July 23, 2021 Assessment & Plan (1) Hyponatremia: Reason Critically Ill: 81-year-old male presenting with hyponatremia with a sodium of 116 in the outpatient requiring close laboratory monitoring for correction of sodium. NEURO - * CAM ICU: NEGATIVE * Monitor for seizure activity in the hyponatremic patient. CARDIAC/VASCULAR - * Coronary artery disease, hypertension, A. fib. * Continue home antihypertensives and beta-yolie as prescribed. * Monitor on telemetry. RESPIRATORY - * COPD and obstructive sleep apnea. * Saturating well on room air at this time. * Home management to continue as tolerated. GI/NUTRITION - * Fluid restriction pending correction of sodium. RENAL/LYTES - * Hyponatremia: * Hypoosmolar hyponatremia. * Possibly related to diuretics. * Received total of 200 mL of hypertonic saline. * Patient without significant symptoms of hyponatremia at this time. * Will defer to nephrology for ongoing management. * Hypokalemia: * Replace appropriately. * History of CKD IV: * Appreciate nephrology ongoing management. - * No concerns at this time. ENDO - * DMII * BSGs per unit protocol. ISS --> gtt per unit policy. * Hypothyroidism: * Continue home Rx HEME - * Stable H&H * Monitor for s/s bleeding in the anticoagulated patient on coumadin. ID - * No concerns for infection at this time LINES/IV ACCESS - * PIVs x2 DVT PROPHYLAXIS - * Anticoagulated on Coumadin * SCDs Thank you for allowing us to participate in the care of this patient. Please refer to my attending physician's documentation for any further recommendations. History of Present Illness Attending Physician: Adiel Robledo MD History of Present Illness Patient is an 81-year-old male with history of diabetes, chronic kidney disease, hypothyroidism, hyperlipidemia, COPD, ABRAN, and rheumatoid arthritis who presented to the emergency department today after abnormal labs in the outpatient setting. Apparently, the patient has been been having his labs monitored with changes in his diuretics recently. He was noted to have an outpatient sodium of 116. He was directed to the emergency department for further evaluation management. Patient received 100 mL of 3% saline initially with minimal rise in his sodium. He did receive an additional 100 mL of hypertonic saline after hospitalist discussed case with nephrology. Patient admitted for management of hyponatremia. Upon evaluation in the ICU, the patient is awake, alert, and oriented. He states that he has been very tired over the last several days. Otherwise, he reports that he has had no recent dizziness, lightheadedness, headaches, blurry vision, double vision, chest pain, palpitations, nausea, vomiting, or concerns for seizure-like activity. Allergies Allergy/AdvReac Type Severity Reaction Status Date / Time morphine AdvReac Intermediate "HALLUCINAT Verified 07/23/21 01:40 E" oxycodone AdvReac Intermediate "HALLUCINAT Verified 07/23/21 01:40 E" Penicillins AdvReac Unknown HALLUCINATI Unverified 07/23/21 01:40 ONS Home Medications Medication Instructions Recorded Confirmed Type Robitussin 12 Hr Cough 0 ml PO UD 07/23/21 07/23/21 History albuterol sulfate 2.5 mg INHALATION UD PRN 07/23/21 07/23/21 History albuterol sulfate 90 mcg/actuation 2 puff INHALATION Q4 PRN 07/23/21 07/23/21 History aerosol inhaler allopurinol 300 mg tablet 300 mg PO DAILY 07/23/21 07/23/21 History amlodipine 2.5 mg tablet 2.5 mg PO DAILY 07/23/21 07/23/21 History ascorbic acid (vitamin C) 500 mg 500 mg PO DAILY 07/23/21 07/23/21 History tablet (Vitamin C) calcitriol 0.25 mcg capsule 0.25 mcg PO DAILY 07/23/21 07/23/21 History ergocalciferol (vitamin D2) 1,250 50,000 unit PO WK 07/23/21 07/23/21 History mcg (50,000 unit) capsule (Vitamin D2) gabapentin 100 mg capsule 100 mg PO TID 07/23/21 07/23/21 History garlic 1,000 mg capsule 1,000 mg PO DAILY 07/23/21 07/23/21 History glipizide 5 mg tablet 2.5 mg PO DIRECTED 07/23/21 07/23/21 History hydralazine 100 mg tablet 100 mg PO BID 07/23/21 07/23/21 History isosorbide dinitrate 20 mg tablet 20 mg PO BID 07/23/21 07/23/21 History levothyroxine 88 mcg tablet 88 mcg PO DAILY 07/23/21 07/23/21 History magnesium oxide 400 mg (241.3 mg 400 mg PO DAILY 07/23/21 07/23/21 History magnesium) tablet metolazone 5 mg tablet 5 mg PO 3XWK 07/23/21 07/23/21 History metoprolol succinate 100 mg 100 mg PO BID 07/23/21 07/23/21 History tablet,extended release 24 hr multivitamin 1 tab PO DAILY 07/23/21 07/23/21 History omega-3 fatty acids 1,000 mg PO DAILY 07/23/21 07/23/21 History pantoprazole 40 mg tablet,delayed 40 mg PO DAILY 07/23/21 07/23/21 History release tamsulosin 0.4 mg capsule 0.4 mg PO DAILY 07/23/21 07/23/21 History torsemide 100 mg tablet 100 mg PO DAILY 07/23/21 07/23/21 History tramadol 50 mg tablet 50 mg PO Q6H PRN 07/23/21 07/23/21 History vitamin E 400 unit tablet 400 unit PO DAILY 07/23/21 07/23/21 History warfarin 2.5 mg tablet 0 mg PO UD 07/23/21 07/23/21 History Patient History Social History Smoking Status: Never smoker Second Hand Exposure: No; Do You Dip or Chew Tobacco: No; Tobacco Cessation Education Requested by Patient: No Hx Alcohol Use: No Hx Substance Use: No Preferred Language: Sinhala Communication Ability: Effective Beliefs That Will Affect Care: None Current Living Situation: Spouse Other Information That Helps Us Care for You: No Feels Safe at Home: Yes Safety Concerns: Feels Safe At This Time Assistive Devices: Cane Review of Systems Review of Systems: A complete 10 point review of systems was reviewed with the patient with pertinent positives and negatives as per history of present illness. All else were negative. Physical Exam Physical Exam: VITAL SIGNS - Vital signs and nursing notes were reviewed. GENERAL - 81-year-old male appearing his stated age who is in no acute distress. Communicates well with provider and answers questions appropriately. SKIN - Without rashes. HEAD - NC/AT. EYES - PERRL with EOMI bilaterally. Sclera anicteric. EARS - No deformities of external structures noted on gross examination bila terally. NOSE - Midline and without cyanosis. MOUTH/OROPHARYNX - Without perioral cyanosis. Buccal mucosa pink and moist and without leukoplakia. NECK - Neck with FROM. No nuchal rigidity. LUNGS - Chest wall symmetric without accessory muscle use, intercostals retractions, or central cyanosis. Normal vesicular breath sounds CTA B/L. No wheezes, rales, or rhonchi appreciated. CARDIAC - RRR with S1/S2. No murmur, rubs, or gallops appreciated. ABDOMEN - Abdominal contour flat without pulsations or visible masses. BS normoactive all four quadrants. No tenderness, palpable masses, hepatosplenom egaly, or ascites noted. EXTREMITIES - No clubbing or peripheral cyanosis. Moderate pretibial edema present. +3/5 radial, posterior tibial, and dorsalis pedis pulses palpated throughout. +5/5 strength noted in UE/LE bilaterally. NEUROLOGIC - Cranial nerves II through XII grossly intact. Sensory intact to light touch throughout. PSYCH - A&Ox3 and cooperates fully with examiner. Pt is very pleasant and interacts well with examiner. Results & Data Results & Data ([facility]) Vital Signs (Past 12 Hours) Vital Signs Temp Pulse Resp BP Pulse Ox 07/23/21 00:30 56 L 19 130/80 99 07/23/21 00:06 59 L 14 150/80 H 98 07/22/21 23:00 56 L 14 136/82 98 07/22/21 22:16 64 18 144/75 H 100 07/22/21 18:46 36.6 C 72 16 107/68 96 Coding Level of Care Code 06831 Office/OBS Consult Lvl 4 Diagnoses Hyponatremia E87.1 Time Spent (min) 32
[2021-07-23 03:31] LABS: Basophils # (auto) 0.04 K/uL (0-0.2); Basophils % (auto) 0.6 %; Eosinophils # (auto) 0.39 K/uL (0-0.5); Immature Granulocytes # (auto) 0.03 K/uL (0.00-0.02); Immature Granulocytes % (auto) 0.5 %; Lymphocytes # (auto) 1.65 K/uL (1.2-3.4); Lymphocytes % (auto) 25.3 %; Monocytes # (auto) 0.47 K/uL (0.11-0.59); Monocytes % (auto) 7.2 %; Neutrophils # (auto) 3.95 K/uL (1.4-6.5); Neutrophils % (auto) 60.4 %; Ovalocytes 1+; Platelet Estimate Decreased (Normal)
[2021-07-23] MEDS: POTASSIUM CHLORIDE / WTR 10 MEQ/100 ML PLCT IV SCH ×2 (04:05→05:55)
[2021-07-23] MEDS: LEVOTHYROXINE SODIUM 88 MCG TABLET PO SCH (05:57)
[2021-07-23 07:07] LABS: Estimated Average Glucose 131 mg/dl; Hemoglobin A1C 6.2 % (4.5-5.6)
[2021-07-23] MEDS: INSULIN ASPART 100 UNITS/ML 3 ML PEN SC SCH ×4 (07:55→22:13)
[2021-07-23] MEDS: ISOSORBIDE DINITRATE 20 MG TAB PO SCH ×2 (07:56→13:05)
[2021-07-23] MEDS: MAGNESIUM OXIDE 400 MG TAB PO SCH (07:56)
[2021-07-23] MEDS: TAMSULOSIN HCL 0.4 MG CAP PO SCH (07:57)
[2021-07-23] MEDS: METOPROLOL SUCC 50MG EXT REL TAB PO SCH ×2 (07:57→21:31)
[2021-07-23] MEDS: CALCITRIOL 0.25 MCG CAPSULE PO SCH (07:57)
[2021-07-23] MEDS: hydrALAZINE TAB 50 MG TAB PO SCH ×2 (07:57→21:30)
[2021-07-23] MEDS: GABAPENTIN 100 MG CAP PO SCH ×3 (07:57→21:29)
[2021-07-23] MEDS: MULTIVITAMIN TAB PO SCH (07:57)
[2021-07-23] MEDS: ASCORBIC ACID 500 MG TAB PO SCH (07:58)
[2021-07-23] MEDS: amLODIPine BESYLATE 5 MG TAB PO SCH (07:58)
[2021-07-23] MEDS: PANTOprazole 40 MG TAB PO SCH (07:58)
[2021-07-23] MEDS: allopurinoL 300 MG TAB PO SCH (07:58)
[2021-07-23 08:14] LABS: BUN Creatinine Ratio 18.1 (10-20); Creatinine Clr Calc Pharmacy 19.1 ml/min; Est GFR (African American) 17.3 ml/min; Est GFR (Non-African American) 14.9 ml/min; Potassium 3.7 mmol/L (3.5-5.1)
[2021-07-23 11:29] LABS: BUN Creatinine Ratio 17.6 (10-20); Calcium 9.2 mg/dl (8.5-10.1); Creatinine Clr Calc Pharmacy 18.4 ml/min; Est GFR (African American) 16.5 ml/min; Est GFR (Non-African American) 14.2 ml/min; Potassium 3.6 mmol/L (3.5-5.1)
--- NOTE | 2021-07-23 12:33 | Consultation Report ---
NEPHROLOGY CONSULTATION NOTE REASON FOR CONSULTATION: Hyponatremia with CKD. HISTORY OF PRESENT ILLNESS: The patient is an 81-year-old male with significant comorbid diseases in cluding worsening CKD, which is now approaching stage V, even at outpatient. He also has obstructive sleep apnea, pulmonary hypertension, COPD, congestive heart failure, and multiple other medical prob lems. As an outpatient, he was having increasing problems with shortness of breath and increasing lo wer extremity edema despite being on a fairly hefty dose of diuretics. Metolazone was added recently and torsemide increased to 100 twice daily. He had outpatient labs done which showed serum sodium o f 116, after which he was instructed to come to the hospital for admission and further management. C ompared to recent increase in diuretics, his edema has gone down, his weight has gone down, and his s hortness of breath has improved. At this time, he appears very comfortable and is on room air, but h e does have some lower extremity edema. Since admission, he has received hypertonic saline, but it r eally has not changed his serum sodium much as most recent sodium just few minutes ago was still 119. At this time, both diuretics are on hold. He has not received salt tablet, urea, or any other evin tment for hyponatremia. He is on fluid restriction of 2 liters at this time. He is making urine, al though it is not documented accurately. ALLERGIES: MORPHINE, OXYCODONE, PENICILLIN. PAST MEDICAL HISTORY: Includes type 2 diabetes, secondary hyperparathyroidism, chronic kidney disease stage IV, now approaching stage V, massive proteinuria of 11 grams, hypertriglyceridemia, COPD, pulm onary hypertension, obstructive sleep apnea, atrial fibrillation, congestive heart failure, GERD, saman al osteodystrophy, gout, rheumatoid arthritis. PAST SURGICAL HISTORY: Knee arthroplasty, carpal tunnel surgery, colonoscopy, ear surgery, amputatio n of the right index finger, back surgery, injection into the spine, cervical laminectomy, tonsillect dorie, adenoidectomy, hernia repair. MEDICATION: At home was reviewed and is as per the reconciliation list. The patient was started on metolazone recently. He is also on torsemide 100 twice daily. All his medications were reviewed in detail and is as per the reconciliation list. FAMILY HISTORY: Significant for brother with liver cancer, no ESRD in the family. SOCIAL HISTORY: He is . No smoking, no alcohol, no drugs. REVIEW OF SYSTEMS: As detailed in HPI, unless stated otherwise 12 systems reviewed and negative. Po sitive review of systems includes recent increasing lower extremity edema, shortness of breath, and w eight gain, which has since improved. PHYSICAL EXAMINATION: GENERAL: The patient is not in any respiratory distress at this time. He is awake, alert, oriented x3. HEENT: Mucous membrane is moist. NECK: Supple. No jugular venous distention. VITAL SIGNS: 99% on room air, blood pressure is 121/62, pulse rate 47, temperature 36.9. CHEST: Bilateral decreased breath sounds, prolonged expiration. CARDIOVASCULAR: S1 and S2, regular. ABDOMEN: Soft, nontender. EXTREMITIES: Shows trace to 1+ edema, but this is substantially less than what he had in the recent past. He does have some skin changes in his left lower extremity along the tibial border LABORATORY TESTS: Sodium this morning most recent is 119, potassium 3.6, BUN 67, creatinine 3.77. Ur ine sodium was 50. Urine osmolality was 223. Otherwise, urine was unremarkable. ASSESSMENT AND PLAN: An 81-year-old male with chronic kidney disease stage IV, now approaching chron ic kidney disease V admitted with hyponatremia. Hyponatremia: This is in the setting of worsening chronic kidney disease with nephrotic range protei ashley and recent escalation of diuretics. He has been on torsemide for a long time without hyponatre connor. I believe the recent addition of metolazone is the main culprit as well as high fluid intake. I do not think the patient is following a fluid restricted diet. RECOMMENDATIONS: 1. No more hypertonic saline. 2. BMP every 6 hours. 3. Torsemide 100 daily to be restarted. This was his longstanding dose for a long time. 4. Do not use metolazone and we would not use it even as an outpatient and listed as an allergy. 5. Even after hospital discharge, he will need frequent labs 2-3 times a week before we see a stable serum sodium and renal function. 6. Recent decline in the kidney function, but this started even before escalation of diuretics. Garima ck urine protein to creatinine ratio. No further workup is needed for acute renal failure other than a renal ultrasound. Job ID: [id number]
[2021-07-23 12:43] LABS: BUN Creatinine Ratio 18.2 (10-20); Calcium 9.5 mg/dl (8.5-10.1); Creatinine Clr Calc Pharmacy 18.8 ml/min; Est GFR (Non-African American) 14.6 ml/min; Potassium 3.5 mmol/L (3.5-5.1)
[2021-07-23] MEDS: TORSEMIDE 100 MG TAB PO SCH (12:45)
--- NOTE | 2021-07-23 14:28 | Ultrasound Report ---
ULTRASOUND KIDNEYS AND BLADDER CLINICAL HISTORY: Acute on chronic renal insufficiency. COMPARISON STUDY: Abdominal CT dated 05/31/2019 TECHNIQUE: Real-time, grayscale, and color flow sonography of the kidneys and bladder is performed. I mages are reviewed in the transverse and longitudinal planes. FINDINGS: Kidneys: The kidneys are atrophic and echogenic consistent with medical renal disease. The right kidn ey measures 8.7 x 5.0 x 3.6 cm and the left kidney measures 11.2 x 5.3 x 5.8 cm. There is no hydrone phrosis. No shadowing renal calculi are identified. Bilateral renal cysts measure up to 3.4 cm. There is no sonographic evidence of contour deforming renal mass lesion. No perinephric fluid is identifie d. Bladder: The bladder wall appears thickened and trabeculated indicating chronic outlet obstruction. O nly the right ureteral jet was seen. IMPRESSION: 1. The kidneys are atrophic and echogenic consistent with medical renal disease. 2. There is no hydronephrosis. 3. The appearance of the bladder suggests chronic outlet obstruction. ACT 112: Negative or not required by law. Electronically signed by: Pierce Pacheco M.D. 07/23/2021 2:27 PM
--- NOTE | 2021-07-23 14:43 | Hospitalist Progress Note ---
Date of Service July 23, 2021 Assessment & Plan (1) Hyponatremia: Plan: This is an 81-year-old male who presents with hyponatremia. 1. Hyponatremia: Initially had some nausea, mild GORDON but currently asymptomatic. His sodium is 117 on admission here. He was on torsemide and metolazone at home, which were hold initially. Recently the medications were adjusted. His sodium was 138 in March 2021, was 121 in June 2021. He received 100 mL of hypertonic saline in the ER and it raised sodium from 117 to 118. Discussed with nephrology. Received another 100 mL of hypertonic saline in ICU. Nephrology consulted Hyponatremia in the setting of worsening CKD with nephrotic range proteinuria and recent escalation of diuretics. He has been on torsemide for a long time without hyponatremia. I believe the recent addition of metolazone is the main culprit as well as high fluid intake. I do not think the patient is following a fluid restricted diet. No more hypertonic saline Repeat BMP every 6 hours Torsemide 100 daily to be restarted. This was his longstanding dose for a long time. Do not use metolazone and we would not use it even as an outpatient and listed as an allergy. Even after hospital discharge, he will need frequent labs 2-3 times a week before we see a stable serum sodium and renal function. Recent decline in the kidney function, but this started even before escalation of diuretics. Check urine protein to creatinine ratio. No further workup is needed for acute renal failure other than a renal ultrasound. 2. Hypokalemia: Will replace. 3. Acute kidney injury on chronic kidney disease stage IV going on stage V: Baseline creatinine of 3.3, currently creatinine of 3.76. Management per nephrology, as above. 4. History of hypertension: On hydralazine, Toprol-XL, amlodipine, isosorbide dinitrate. Will monitor the blood pressure. 5. History of diabetes: Will hold his glipizide. Placed him on insulin sliding scale. Follow the blood sugars. Follow HbA1c level. 6. GERD: Continue Protonix. 7. Atrial fibrillation: Rate controlled on Toprol-XL and Coumadin. Follow the PT/INR. 8. BPH: On Flomax. 9. Gout: On allopurinol. 10. LE edema, mostly from renal disease: Will monitor. Seems improved. 11. Thrombocytopenia: Will follow the repeat labs, needs followup. DVT prophylaxis: heparin subcutaneous. DISPOSITION: Closely monitor in the tele floor. PT, OT prior to discharge. Social service to help with discharge planning. Code: full code as per my discussion with the patient. Admission and Anticipated Discharge Date Admission Date: July 23, 2021 Subjective Patient seen in follow-up of hyponatremia Currently in ICU, received hypertonic saline This morning had some nausea and headache, now feels improved and has no complaints Also denies any chest pain, shortness of breath, abdominal pain, nausea or vomiting, says he did have a bowel movement Seen by nephrology Review of Systems Review of Systems: All systems reviewed & are unremarkable except as noted in Subjective Physical Exam Physical Exam: GENERAL: obese, elderly M, not in acute distress. HEENT: NC/AT, EOMI, Pupils equal, round and reactive to light. Oral mucosa moist. NECK: No JVD. No neck masses. CARDIOVASCULAR: S1 and S2 heard. Regular rate and rhythm. No murmur, no gallop. RESPIRATORY: Normal AP diameter. No accessory muscle use. No wheezing, no crackles. ABDOMEN: Soft, bowel sounds present, nontender, no distention. NEURO: Alert and oriented x3. Speech is clear. No facial droop. Obeys commands. Moves extremities. EXTREMITIES: Bilateral lower extremity edema (improved) present with some skin changes on the left rose. Results & Data Results & Data ([facility]) Vital Signs (Past 12 Hours) Vital Signs Pulse BP Pulse Ox 07/23/21 13:00 56 L 128/72 98 07/23/21 12:30 63 98 07/23/21 12:03 82 96 07/23/21 11:02 47 L 121/62 97 07/23/21 10:30 58 L 98 07/23/21 10:02 74 93 07/23/21 09:00 56 L 108/58 L 97 07/23/21 08:01 63 106/92 99 07/23/21 08:00 62 07/23/21 07:03 78 147/87 H 89 L 07/23/21 06:01 65 153/77 H 99 07/23/21 05:01 55 L 155/71 H 98 07/23/21 04:45 65 129/63 93 07/23/21 04:00 54 L 148/84 H 99 07/23/21 03:01 58 L 138/71 100 Laboratory Results 07/23/21 07/23/21 07/23/21 Range/Units Unknown 12:13 11:06 WBC (4.8-10.8) K/uL RBC (4.7-6.1) M/uL Hgb (14.0-18.0) g/dL Hct (42-52) % MCV (80-100) fL MCH (25-34) pg MCHC (32-36) g/dL RDW Std Deviation (36.4-46.3) fL RDW Coeff of Yanira (11.5-14.5) % Plt Count (130-400) K/uL MPV (7.4-10.4) fL Immature Gran % (Auto) % Neut % (Auto) % Lymph % (Auto) % [place] % (Auto) % Eos % (Auto) % Baso % (Auto) % Neut # (Auto) (1.4-6.5) K/uL Lymph # (Auto) (1.2-3.4) K/uL [place] # (Auto) (0.11-0.59) K/uL Eos # (Auto) (0-0.5) K/uL Baso # (Auto) (0-0.2) K/uL Immature Gran # (Auto) (0.00-0.02) K/uL Platelet Estimate (Normal) Ovalocytes PT (9.0-12.0) Seconds INR (0.9-1.1) Sodium 120 L (136-145) mmol/L Potassium 3.5 (3.5-5.1) mmol/L Chloride 81 L (98-107) mmol/L Carbon Dioxide 28 (21-32) mmol/L Anion Gap 11.0 (3-11) BUN 67 H (7-18) mg/dl Creatinine 3.68 H (0.6-1.4) mg/dl Est Cr Clr Drug Dosing 18.8 ml/min Est GFR ( Amer) 17.0 ml/min Est GFR (Non-Af Amer) 14.6 ml/min BUN/Creatinine Ratio 18.2 (10-20) Glucose 120 H (70-99) mg/dl POC Glucose 151 H (70-99) mg/dl Estimat Average Glucose mg/dl Hemoglobin A1c (4.5-5.6) % Osmolality (280-300) mOsm/kg Calcium 9.5 (8.5-10.1) mg/dl Phosphorus (2.5-4.9) mg/dl Magnesium (1.8-2.4) mg/dl Total Bilirubin (0.2-1) mg/dl Direct Bilirubin (0-0.2) mg/dl AST (15-37) U/L ALT (12-78) U/L Alkaline Phosphatase (45-117) U/L Troponin I (0-0.045) ng/ml Total Protein (6.4-8.2) gm/dl Albumin (3.4-5.0) gm/dl Globulin (2.5-4.0) gm/dl Albumin/Globulin Ratio (0.9-2) Urine Color Urine Appearance (Clear) Urine pH (4.5-7.5) Ur Specific [place] (1.000-1.030) Urine Protein (Negative) Urine Glucose (UA) (Negative) Urine Ketones (Negative) Urine Blood (Negative) Urine Nitrite (Negative) Urine Bilirubin (Negative) Urine Urobilinogen (Negative) Ur Leukocyte Esterase (Negative) Urine Osmolality (500-800) mOsm/kg Ur Random Sodium mmol/L Nasal Screen MRSA (PCR) Negative (Negative) COVID-19 Eval Order SARS-CoV-2 (PCR) (Negative) 07/23/21 07/23/21 07/23/21 Range/Units 10:44 07:13 06:57 WBC (4.8-10.8) K/uL RBC (4.7-6.1) M/uL Hgb (14.0-18.0) g/dL Hct (42-52) % MCV (80-100) fL MCH (25-34) pg MCHC (32-36) g/dL RDW Std Deviation (36.4-46.3) fL RDW Coeff of Yanira (11.5-14.5) % Plt Count (130-400) K/uL MPV (7.4-10.4) fL Immature Gran % (Auto) % Neut % (Auto) % Lymph % (Auto) % [place] % (Auto) % Eos % (Auto) % Baso % (Auto) % Neut # (Auto) (1.4-6.5) K/uL Lymph # (Auto) (1.2-3.4) K/uL [place] # (Auto) (0.11-0.59) K/uL Eos # (Auto) (0-0.5) K/uL Baso # (Auto) (0-0.2) K/uL Immature Gran # (Auto) (0.00-0.02) K/uL Platelet Estimate (Normal) Ovalocytes PT (9.0-12.0) Seconds INR (0.9-1.1) Sodium 119 L* 119 L* (136-145) mmol/L Potassium 3.6 3.7 D (3.5-5.1) mmol/L Chloride 80 L 79 L (98-107) mmol/L Carbon Dioxide 27 27 (21-32) mmol/L Anion Gap 12.0 H 13.0 H (3-11) BUN 67 H 66 H (7-18) mg/dl Creatinine 3.77 H 3.62 H (0.6-1.4) mg/dl Est Cr Clr Drug Dosing 18.4 19.1 ml/min Est GFR ( Amer) 16.5 17.3 ml/min Est GFR (Non-Af Amer) 14.2 14.9 ml/min BUN/Creatinine Ratio 17.6 18.1 (10-20) Glucose 138 H 112 H (70-99) mg/dl POC Glucose 127 H (70-99) mg/dl Estimat Average Glucose mg/dl Hemoglobin A1c (4.5-5.6) % Osmolality (280-300) mOsm/kg Calcium 9.2 10.0 (8.5-10.1) mg/dl Phosphorus (2.5-4.9) mg/dl Magnesium (1.8-2.4) mg/dl Total Bilirubin (0.2-1) mg/dl Direct Bilirubin (0-0.2) mg/dl AST (15-37) U/L ALT (12-78) U/L Alkaline Phosphatase (45-117) U/L Troponin I (0-0.045) ng/ml Total Protein (6.4-8.2) gm/dl Albumin (3.4-5.0) gm/dl Globulin (2.5-4.0) gm/dl Albumin/Globulin Ratio (0.9-2) Urine Color Urine Appearance (Clear) Urine pH (4.5-7.5) Ur Specific [place] (1.000-1.030) Urine Protein (Negative) Urine Glucose (UA) (Negative) Urine Ketones (Negative) Urine Blood (Negative) Urine Nitrite (Negative) Urine Bilirubin (Negative) Urine Urobilinogen (Negative) Ur Leukocyte Esterase (Negative) Urine Osmolality (500-800) mOsm/kg Ur Random Sodium mmol/L Nasal Screen MRSA (PCR) (Negative) COVID-19 Eval Order SARS-CoV-2 (PCR) (Negative) 07/23/21 07/23/21 07/23/21 Range/Units 02:56 02:56 02:56 WBC (4.8-10.8) K/uL RBC (4.7-6.1) M/uL Hgb (14.0-18.0) g/dL Hct (42-52) % MCV (80-100) fL MCH (25-34) pg MCHC (32-36) g/dL RDW Std Deviation (36.4-46.3) fL RDW Coeff of Yanira (11.5-14.5) % Plt Count (130-400) K/uL MPV (7.4-10.4) fL Immature Gran % (Auto) % Neut % (Auto) % Lymph % (Auto) % [place] % (Auto) % Eos % (Auto) % Baso % (Auto) % Neut # (Auto) (1.4-6.5) K/uL Lymph # (Auto) (1.2-3.4) K/uL [place] # (Auto) (0.11-0.59) K/uL Eos # (Auto) (0-0.5) K/uL Baso # (Auto) (0-0.2) K/uL Immature Gran # (Auto) (0.00-0.02) K/uL Platelet Estimate (Normal) Ovalocytes PT 11.9 (9.0-12.0) Seconds INR 1.2 H (0.9-1.1) Sodium 120 L (136-145) mmol/L Potassium 3.0 L (3.5-5.1) mmol/L Chloride 81 L (98-107) mmol/L Carbon Dioxide 29 (21-32) mmol/L Anion Gap 10.0 (3-11) BUN 65 H (7-18) mg/dl Creatinine 3.59 H (0.6-1.4) mg/dl Est Cr Clr Drug Dosing 19.3 ml/min Est GFR ( Amer) 17.5 ml/min Est GFR (Non-Af Amer) 15.1 ml/min BUN/Creatinine Ratio 18.2 (10-20) Glucose 110 H (70-99) mg/dl POC Glucose (70-99) mg/dl Estimat Average Glucose 131 mg/dl Hemoglobin A1c 6.2 H (4.5-5.6) % Osmolality (280-300) mOsm/kg Calcium 9.1 (8.5-10.1) mg/dl Phosphorus 4.4 (2.5-4.9) mg/dl Magnesium 2.2 (1.8-2.4) mg/dl Total Bilirubin (0.2-1) mg/dl Direct Bilirubin (0-0.2) mg/dl AST (15-37) U/L ALT (12-78) U/L Alkaline Phosphatase (45-117) U/L Troponin I (0-0.045) ng/ml Total Protein (6.4-8.2) gm/dl Albumin (3.4-5.0) gm/dl Globulin (2.5-4.0) gm/dl Albumin/Globulin Ratio (0.9-2) Urine Color Urine Appearance (Clear) Urine pH (4.5-7.5) Ur Specific [place] (1.000-1.030) Urine Protein (Negative) Urine Glucose (UA) (Negative) Urine Ketones (Negative) Urine Blood (Negative) Urine Nitrite (Negative) Urine Bilirubin (Negative) Urine Urobilinogen (Negative) Ur Leukocyte Esterase (Negative) Urine Osmolality (500-800) mOsm/kg Ur Random Sodium mmol/L Nasal Screen MRSA (PCR) (Negative) COVID-19 Eval Order SARS-CoV-2 (PCR) (Negative) 07/23/21 07/23/21 07/23/21 Range/Units 02:56 00:06 00:06 WBC 6.53 (4.8-10.8) K/uL RBC 3.86 L (4.7-6.1) M/uL Hgb 10.9 L (14.0-18.0) g/dL Hct 31.2 L (42-52) % MCV 80.8 (80-100) fL MCH 28.2 (25-34) pg MCHC 34.9 (32-36) g/dL RDW Std Deviation 50.5 H (36.4-46.3) fL RDW Coeff of Yanira 17.2 H (11.5-14.5) % Plt Count 108 L (130-400) K/uL MPV 10.6 H (7.4-10.4) fL Immature Gran % (Auto) 0.5 % Neut % (Auto) 60.4 % Lymph % (Auto) 25.3 % [place] % (Auto) 7.2 % Eos % (Auto) 6.0 % Baso % (Auto) 0.6 % Neut # (Auto) 3.95 (1.4-6.5) K/uL Lymph # (Auto) 1.65 (1.2-3.4) K/uL [place] # (Auto) 0.47 (0.11-0.59) K/uL Eos # (Auto) 0.39 (0-0.5) K/uL Baso # (Auto) 0.04 (0-0.2) K/uL Immature Gran # (Auto) 0.03 H (0.00-0.02) K/uL Platelet Estimate Decreased L (Normal) Ovalocytes 1+ PT (9.0-12.0) Seconds INR (0.9-1.1) Sodium (136-145) mmol/L Potassium (3.5-5.1) mmol/L Chloride (98-107) mmol/L Carbon Dioxide (21-32) mmol/L Anion Gap (3-11) BUN (7-18) mg/dl Creatinine (0.6-1.4) mg/dl Est Cr Clr Drug Dosing ml/min Est GFR ( Amer) ml/min Est GFR (Non-Af Amer) ml/min BUN/Creatinine Ratio (10-20) Glucose (70-99) mg/dl POC Glucose (70-99) mg/dl Estimat Average Glucose mg/dl Hemoglobin A1c (4.5-5.6) % Osmolality (280-300) mOsm/kg Calcium (8.5-10.1) mg/dl Phosphorus (2.5-4.9) mg/dl Magnesium (1.8-2.4) mg/dl Total Bilirubin (0.2-1) mg/dl Direct Bilirubin (0-0.2) mg/dl AST (15-37) U/L ALT (12-78) U/L Alkaline Phosphatase (45-117) U/L Troponin I (0-0.045) ng/ml Total Protein (6.4-8.2) gm/dl Albumin (3.4-5.0) gm/dl Globulin (2.5-4.0) gm/dl Albumin/Globulin Ratio (0.9-2) Urine Color Urine Appearance (Clear) Urine pH (4.5-7.5) Ur Specific [place] (1.000-1.030) Urine Protein (Negative) Urine Glucose (UA) (Negative) Urine Ketones (Negative) Urine Blood (Negative) Urine Nitrite (Negative) Urine Bilirubin (Negative) Urine Urobilinogen (Negative) Ur Leukocyte Esterase (Negative) Urine Osmolality 223 L (500-800) mOsm/kg Ur Random Sodium 50 mmol/L Nasal Screen MRSA (PCR) (Negative) COVID-19 Eval Order SARS-CoV-2 (PCR) (Negative) 07/23/21 07/22/21 07/22/21 Range/Units 00:06 22:48 22:47 WBC (4.8-10.8) K/uL RBC (4.7-6.1) M/uL Hgb (14.0-18.0) g/dL Hct (42-52) % MCV (80-100) fL MCH (25-34) pg MCHC (32-36) g/dL RDW Std Deviation (36.4-46.3) fL RDW Coeff of Yanira (11.5-14.5) % Plt Count (130-400) K/uL MPV (7.4-10.4) fL Immature Gran % (Auto) % Neut % (Auto) % Lymph % (Auto) % [place] % (Auto) % Eos % (Auto) % Baso % (Auto) % Neut # (Auto) (1.4-6.5) K/uL Lymph # (Auto) (1.2-3.4) K/uL [place] # (Auto) (0.11-0.59) K/uL Eos # (Auto) (0-0.5) K/uL Baso # (Auto) (0-0.2) K/uL Immature Gran # (Auto) (0.00-0.02) K/uL Platelet Estimate (Normal) Ovalocytes PT (9.0-12.0) Seconds INR (0.9-1.1) Sodium 118 L* (136-145) mmol/L Potassium 3.3 L (3.5-5.1) mmol/L Chloride 77 L (98-107) mmol/L Carbon Dioxide 27 (21-32) mmol/L Anion Gap 14.0 H (3-11) BUN 64 H (7-18) mg/dl Creatinine 3.76 H (0.6-1.4) mg/dl Est Cr Clr Drug Dosing 18.4 ml/min Est GFR ( Amer) 16.5 ml/min Est GFR (Non-Af Amer) 14.3 ml/min BUN/Creatinine Ratio 17.1 (10-20) Glucose 128 H (70-99) mg/dl POC Glucose (70-99) mg/dl Estimat Average Glucose mg/dl Hemoglobin A1c (4.5-5.6) % Osmolality 262 L (280-300) mOsm/kg Calcium 9.1 (8.5-10.1) mg/dl Phosphorus (2.5-4.9) mg/dl Magnesium (1.8-2.4) mg/dl Total Bilirubin (0.2-1) mg/dl Direct Bilirubin (0-0.2) mg/dl AST (15-37) U/L ALT (12-78) U/L Alkaline Phosphatase (45-117) U/L Troponin I (0-0.045) ng/ml Total Protein (6.4-8.2) gm/dl Albumin (3.4-5.0) gm/dl Globulin (2.5-4.0) gm/dl Albumin/Globulin Ratio (0.9-2) Urine Color Yellow Urine Appearance Clear (Clear) Urine pH 7.5 (4.5-7.5) Ur Specific [place] 1.007 (1.000-1.030) Urine Protein Negative (Negative) Urine Glucose (UA) Negative (Negative) Urine Ketones Negative (Negative) Urine Blood Negative (Negative) Urine Nitrite Negative (Negative) Urine Bilirubin Negative (Negative) Urine Urobilinogen Negative (Negative) Ur Leukocyte Esterase Negative (Negative) Urine Osmolality (500-800) mOsm/kg Ur Random Sodium mmol/L Nasal Screen MRSA (PCR) (Negative) COVID-19 Eval Order SARS-CoV-2 (PCR) (Negative) 07/22/21 07/22/21 07/22/21 Range/Units 22:40 22:40 21:50 WBC (4.8-10.8) K/uL RBC (4.7-6.1) M/uL Hgb (14.0-18.0) g/dL Hct (42-52) % MCV (80-100) fL MCH (25-34) pg MCHC (32-36) g/dL RDW Std Deviation (36.4-46.3) fL RDW Coeff of Yanira (11.5-14.5) % Plt Count (130-400) K/uL MPV (7.4-10.4) fL Immature Gran % (Auto) % Neut % (Auto) % Lymph % (Auto) % [place] % (Auto) % Eos % (Auto) % Baso % (Auto) % Neut # (Auto) (1.4-6.5) K/uL Lymph # (Auto) (1.2-3.4) K/uL [place] # (Auto) (0.11-0.59) K/uL Eos # (Auto) (0-0.5) K/uL Baso # (Auto) (0-0.2) K/uL Immature Gran # (Auto) (0.00-0.02) K/uL Platelet Estimate (Normal) Ovalocytes PT (9.0-12.0) Seconds INR (0.9-1.1) Sodium 117 L* (136-145) mmol/L Potassium 3.2 L (3.5-5.1) mmol/L Chloride 76 L (98-107) mmol/L Carbon Dioxide 27 (21-32) mmol/L Anion Gap 14.0 H (3-11) BUN 64 H (7-18) mg/dl Creatinine 3.78 H (0.6-1.4) mg/dl Est Cr Clr Drug Dosing 18.3 ml/min Est GFR ( Amer) 16.4 ml/min Est GFR (Non-Af Amer) 14.2 ml/min BUN/Creatinine Ratio 17.0 (10-20) Glucose 122 H (70-99) mg/dl POC Glucose (70-99) mg/dl Estimat Average Glucose mg/dl Hemoglobin A1c (4.5-5.6) % Osmolality (280-300) mOsm/kg Calcium 9.1 (8.5-10.1) mg/dl Phosphorus 4.0 (2.5-4.9) mg/dl Magnesium 2.1 (1.8-2.4) mg/dl Total Bilirubin 0.8 (0.2-1) mg/dl Direct Bilirubin 0.2 (0-0.2) mg/dl AST 23 (15-37) U/L ALT 28 (12-78) U/L Alkaline Phosphatase 78 (45-117) U/L Troponin I < 0.015 (0-0.045) ng/ml Total Protein 7.3 (6.4-8.2) gm/dl Albumin 4.0 (3.4-5.0) gm/dl Globulin 3.3 (2.5-4.0) gm/dl Albumin/Globulin Ratio 1.2 (0.9-2) Urine Color Urine Appearance (Clear) Urine pH (4.5-7.5) Ur Specific [place] (1.000-1.030) Urine Protein (Negative) Urine Glucose (UA) (Negative) Urine Ketones (Negative) Urine Blood (Negative) Urine Nitrite (Negative) Urine Bilirubin (Negative) Urine Urobilinogen (Negative) Ur Leukocyte Esterase (Negative) Urine Osmolality (500-800) mOsm/kg Ur Random Sodium mmol/L Nasal Screen MRSA (PCR) (Negative) COVID-19 Eval Order Covid19 at [facility] SARS-CoV-2 (PCR) NEGATIVE (Negative) 07/22/21 Range/Units 21:50 WBC 8.55 (4.8-10.8) K/uL RBC 4.01 L (4.7-6.1) M/uL Hgb 11.3 L (14.0-18.0) g/dL Hct 32.5 L (42-52) % MCV 81.0 (80-100) fL MCH 28.2 (25-34) pg MCHC 34.8 (32-36) g/dL RDW Std Deviation 51.0 H (36.4-46.3) fL RDW Coeff of [place] 17.4 H (11.5-14.5) % Plt Count 127 L (130-400) K/uL MPV 9.9 (7.4-10.4) fL Immature Gran % (Auto) 0.5 % Neut % (Auto) 58.7 % Lymph % (Auto) 24.2 % [place] % (Auto) 10.6 % Eos % (Auto) 5.6 % Baso % (Auto) 0.4 % Neut # (Auto) 5.02 (1.4-6.5) K/uL Lymph # (Auto) 2.07 (1.2-3.4) K/uL [place] # (Auto) 0.91 H (0.11-0.59) K/uL Eos # (Auto) 0.48 (0-0.5) K/uL Baso # (Auto) 0.03 (0-0.2) K/uL Immature Gran # (Auto) 0.04 H (0.00-0.02) K/uL Platelet Estimate (Normal) Ovalocytes PT (9.0-12.0) Seconds INR (0.9-1.1) Sodium (136-145) mmol/L Potassium (3.5-5.1) mmol/L Chloride (98-107) mmol/L Carbon Dioxide (21-32) mmol/L Anion Gap (3-11) BUN (7-18) mg/dl Creatinine (0.6-1.4) mg/dl Est Cr Clr Drug Dosing ml/min Est GFR ( Amer) ml/min Est GFR (Non-Af Amer) ml/min BUN/Creatinine Ratio (10-20) Glucose (70-99) mg/dl POC Glucose (70-99) mg/dl Estimat Average Glucose mg/dl Hemoglobin A1c (4.5-5.6) % Osmolality (280-300) mOsm/kg Calcium (8.5-10.1) mg/dl Phosphorus (2.5-4.9) mg/dl Magnesium (1.8-2.4) mg/dl Total Bilirubin (0.2-1) mg/dl Direct Bilirubin (0-0.2) mg/dl AST (15-37) U/L ALT (12-78) U/L Alkaline Phosphatase (45-117) U/L Troponin I (0-0.045) ng/ml Total Protein (6.4-8.2) gm/dl Albumin (3.4-5.0) gm/dl Globulin (2.5-4.0) gm/dl Albumin/Globulin Ratio (0.9-2) Urine Color Urine Appearance (Clear) Urine pH (4.5-7.5) Ur Specific [place] (1.000-1.030) Urine Protein (Negative) Urine Glucose (UA) (Negative) Urine Ketones (Negative) Urine Blood (Negative) Urine Nitrite (Negative) Urine Bilirubin (Negative) Urine Urobilinogen (Negative) Ur Leukocyte Esterase (Negative) Urine Osmolality (500-800) mOsm/kg Ur Random Sodium mmol/L Nasal Screen MRSA (PCR) (Negative) COVID-19 Eval Order SARS-CoV-2 (PCR) (Negative) Medications Administered Current Inpatient Medications Acetaminophen (Acetaminophen 325 Mg Tab) 650 mg PO Q4H PRN PRN Reason: Pain or Fever Stop: 08/22/21 02:11 Albuterol (Albuterol 0.083% Nebu Soln 3 Ml Vial) 2.5 mg INH Q4H PRN PRN Reason: Shortness Of Breath Or Wheezing Stop: 08/22/21 02:36 Albuterol (Albuterol Hfa 8 Gm Inhaler) 2 puffs INH Q4 PRN PRN Reason: Shortness Of Breath Or Wheezing Stop: 08/22/21 02:36 Allopurinol (Allopurinol 300 Mg Tab) 300 mg PO DAILY ASIM Stop: 08/22/21 08:59 Last Admin: 07/23/21 07:58 Dose: 300 mg Documented by: Amlodipine Besylate (Amlodipine Besylate 5 Mg Tab) 2.5 mg PO DAILY ASIM Stop: 08/22/21 08:59 Last Admin: 07/23/21 07:58 Dose: 2.5 mg Documented by: Ascorbic Acid (Ascorbic Acid 500 Mg Tab) 500 mg PO DAILY ASIM Stop: 08/22/21 08:59 Last Admin: 07/23/21 07:58 Dose: 500 mg Documented by: Calcitriol (Calcitriol 0.25 Mcg Capsule) 0.25 mcg PO DAILY ASIM Stop: 08/22/21 08:59 Last Admin: 07/23/21 07:57 Dose: 0.25 mcg Documented by: Ergocalciferol (Ergocalciferol 50,000 Units 1250 Mcg Cap) 50,000 units PO Th [facility] Stop: 08/24/21 08:59 Gabapentin (Gabapentin 100 Mg Cap) 100 mg PO TID [facility] Stop: 08/22/21 08:59 Last Admin: 07/23/21 07:57 Dose: 100 mg Documented by: Hydralazine HCl (Hydralazine Tab 50 Mg Tab) 100 mg PO BID ASIM Stop: 08/22/21 08:59 Last Admin: 07/23/21 07:57 Dose: 100 mg Documented by: Insulin Aspart (Insulin Aspart 100 Units/Ml 3 Ml Pen) 0 units SC ACHS [facility] Stop: 08/22/21 07:29 Last Admin: 07/23/21 13:04 Dose: Not Given Documented by: Isosorbide Dinitrate (Isosorbide Dinitrate 20 Mg Tab) 20 mg PO BID@0700,1200 [facility] Stop: 08/22/21 06:59 Last Admin: 07/23/21 13:05 Dose: Not Given Documented by: Levothyroxine Sodium (Levothyroxine Sodium 88 Mcg Tablet) 88 mcg PO DAILYBB [facility] Stop: 08/22/21 06:29 Last Admin: 07/23/21 05:57 Dose: 88 mcg Documented by: Magnesium Oxide (Magnesium Oxide 400 Mg Tab) 400 mg PO DAILY [facility] Stop: 08/22/21 08:59 Last Admin: 07/23/21 07:56 Dose: 400 mg Documented by: Metoprolol Succinate (Metoprolol Succ 50mg Ext Rel Tab) 100 mg PO BID [facility] Stop: 08/22/21 08:59 Last Admin: 07/23/21 07:57 Dose: 100 mg Documented by: Multivitamins (Multivitamin Tab) 1 tab PO DAILY [facility]IM Stop: 08/22/21 08:59 Last Admin: 07/23/21 07:57 Dose: 1 tab Documented by: Nitroglycerin (Nitroglycerin Sl 0.4 Mg/Tab Tab) 0.4 mg SL UD PRN PRN Reason: Chest Pain Stop: 08/22/21 02:11 Ondansetron HCl (Ondansetron Inj 2 Mg/Ml 2 Ml Vial) 4 mg IV Q6H PRN PRN Reason: Nausea Stop: 08/22/21 02:11 Last Admin: 07/23/21 04:50 Dose: 4 mg Documented by: Pantoprazole Sodium (Pantoprazole 40 Mg Tab) 40 mg PO DAILY [facility] Stop: 08/22/21 08:59 Last Admin: 07/23/21 07:58 Dose: 40 mg Documented by: Polyethylene Glycol (Polyethylene (Miralax) 17 Gm Pack) 17 gm PO DAILY PRN PRN Reason: Constipation Stop: 08/22/21 02:11 Tamsulosin HCl (Tamsulosin Hcl 0.4 Mg Cap) 0.4 mg PO DAILY [facility] Stop: 08/22/21 08:59 Last Admin: 07/23/21 07:57 Dose: 0.4 mg Documented by: Torsemide (Torsemide 100 Mg Tab) 100 mg PO QAM [facility] Stop: 08/22/21 11:59 Last Admin: 07/23/21 12:45 Dose: 100 mg Documented by: Tramadol HCl (Tramadol Hcl 50 Mg Tablet) 50 mg PO Q6H PRN PRN Reason: Pain Stop: 08/22/21 02:36 Warfarin Sodium (Warfarin Sod 2.5 Mg Tab) 2.5 mg PO DAILY@1600 [facility] Stop: 08/22/21 15:59
[2021-07-23 15:08] LABS: BUN Creatinine Ratio 18.9 (10-20); Calcium 9.1 mg/dl (8.5-10.1); Creatinine Clr Calc Pharmacy 19.1 ml/min; Est GFR (African American) 17.3 ml/min; Est GFR (Non-African American) 14.9 ml/min; Potassium 3.5 mmol/L (3.5-5.1)
--- NOTE | 2021-07-23 15:09 | XRay Report ---
SINGLE VIEW CHEST CLINICAL HISTORY: Acute on chronic renal insufficiency. FINDINGS: 2 AP, portable, upright chest radiographs are compared to study dated 09/18/2018 and correl ated with chest CT dated 09/08/2018. The examination is degraded by portable technique, apical lordot ic positioning, and patient rotation. There are calcified mediastinal and hilar lymph nodes. The hear t is enlarged noting atherosclerotic calcification of the thoracic aorta. The pulmonary vasculature i s noncongested. There are numerous calcified granulomas. Chronic interstitial thickening is similar t o previous. Scarring/atelectasis is noted at the lung bases. No airspace consolidation or large pleur al effusion is identified. No pneumothorax is seen. The skeletal structures are osteopenic. The bony thorax is grossly intact. IMPRESSION: Cardiomegaly with no acute cardiopulmonary abnormality. ACT 112: Negative or not required by law. Electronically signed by: Pierce Pacheco M.D. 07/23/2021 3:08 PM
[2021-07-23] MEDS: WARFARIN SOD 2.5 MG TAB PO SCH (16:49)
[2021-07-23 19:30] LABS: BUN Creatinine Ratio 16.9 (10-20); Calcium 9.3 mg/dl (8.5-10.1); Creatinine Clr Calc Pharmacy 16.9 ml/min; Est GFR (African American) 14.9 ml/min; Est GFR (Non-African American) 12.9 ml/min; Potassium 3.7 mmol/L (3.5-5.1)
[2021-07-23] MEDS ORDERED: FUROSEMIDE 80 MG in SYRINGE 0 ML IV ONE (21:00)
[2021-07-23] MEDS: SODIUM CHLORIDE 1 GM TABLET PO SCH (21:57)
[2021-07-24 01:26] LABS: BUN Creatinine Ratio 18.2 (10-20); Calcium 9.2 mg/dl (8.5-10.1); Creatinine Clr Calc Pharmacy 17.7 ml/min; Est GFR (African American) 15.8 ml/min; Est GFR (Non-African American) 13.6 ml/min; Potassium 3.3 mmol/L (3.5-5.1)
[2021-07-24] MEDS: ISOSORBIDE DINITRATE 20 MG TAB PO SCH ×2 (06:29→12:41)
[2021-07-24] MEDS: LEVOTHYROXINE SODIUM 88 MCG TABLET PO SCH (06:29)
[2021-07-24] MEDS: INSULIN ASPART 100 UNITS/ML 3 ML PEN SC SCH ×5 (08:00→20:00)
[2021-07-24] MEDS ORDERED: POTASSIUM CHLORIDE CRTAB 20 MEQ TABCR PO STA (09:49)
[2021-07-24] MEDS: ASCORBIC ACID 500 MG TAB PO SCH (10:20)
[2021-07-24] MEDS: allopurinoL 300 MG TAB PO SCH (10:20)
[2021-07-24] MEDS: amLODIPine BESYLATE 5 MG TAB PO SCH (10:20)
[2021-07-24] MEDS: CALCITRIOL 0.25 MCG CAPSULE PO SCH (10:20)
[2021-07-24] MEDS: MULTIVITAMIN TAB PO SCH (10:23)
[2021-07-24] MEDS: MAGNESIUM OXIDE 400 MG TAB PO SCH (10:23)
[2021-07-24] MEDS: GABAPENTIN 100 MG CAP PO SCH ×3 (10:23→19:50)
[2021-07-24] MEDS: hydrALAZINE TAB 50 MG TAB PO SCH ×2 (10:23→19:52)
[2021-07-24] MEDS: METOPROLOL SUCC 50MG EXT REL TAB PO SCH ×2 (10:23→19:53)
[2021-07-24] MEDS: SODIUM CHLORIDE 1 GM TABLET PO SCH (10:24)
[2021-07-24] MEDS: TAMSULOSIN HCL 0.4 MG CAP PO SCH (10:24)
[2021-07-24] MEDS: PANTOprazole 40 MG TAB PO SCH (10:24)
[2021-07-24] MEDS: TORSEMIDE 100 MG TAB PO SCH (10:25)
[2021-07-24 12:56] LABS: INR 1.2 (0.9-1.1); Prothrombin Time 12.2 Seconds (9.0-12.0)
[2021-07-24 13:22] LABS: BUN Creatinine Ratio 18.4 (10-20); Calcium 9.6 mg/dl (8.5-10.1); Creatinine Clr Calc Pharmacy 17.2 ml/min; Est GFR (African American) 15.3 ml/min; Est GFR (Non-African American) 13.2 ml/min; Potassium 3.7 mmol/L (3.5-5.1)
--- NOTE | 2021-07-24 14:01 | Nephrology Progress Note ---
Date of Service July 24, 2021 Assessment & Plan Admission and Anticipated Discharge Date Admission Date: July 23, 2021 Subjective Feels fine. na 121. making urine PHYSICAL EXAMINATION: GENERAL: The patient is not in any respiratory distress at this time. He is awake, alert, oriented x3. HEENT: Mucous membrane is moist. NECK: Supple. No jugular venous distention. VITAL SIGNS: 99% on room air, blood pressure is 121/62, pulse rate 47, temperature 36.9. CHEST: Bilateral decreased breath sounds, prolonged expiration. CARDIOVASCULAR: S1 and S2, regular. ABDOMEN: Soft, nontender. EXTREMITIES: Shows trace edema, but this is substantially less than what he had in the recent past. He does have some skin changes in his left lower extremity along the tibial border LABORATORY TESTS: Sodium this morning most recent is 121, Creat 4 ASSESSMENT AND PLAN: An 81-year-old male with chronic kidney disease stage IV, now approaching chronic kidney disease V admitted with hyponatremia. Hyponatremia: This is in the setting of worsening chronic kidney disease with nephrotic range proteinuria and recent escalation of diuretics. He has been on torsemide for a long time without hyponatremia. I believe the recent addition of metolazone is the main culprit as well as high fluid intake. I do not think the patient is following a fluid restricted diet. RECOMMENDATIONS: 1. No more hypertonic saline. 2. BMP every 8 hours. 3. Torsemide 100 daily . Stop Salt tab. NS 50 /hr for 1 liters. 4. Do not use metolazone and we would not use it even as an outpatient and listed as an allergy. 5. Even after hospital discharge, he will need frequent labs 2-3 times a week before we see a stable serum sodium and renal function. 6. Recent decline in the kidney function, but this started even before escalation of diuretics. He has reached CKD 5 now. US renal--Atrophic kidneys. No further workup is needed. Results & Data ([facility]) Vital Signs (Past 12 Hours) Vital Signs Temp Pulse Pulse Resp BP Pulse Ox 07/24/21 11:29 36.6 C 64 20 165/72 H 07/24/21 08:00 48 L 07/24/21 04:22 36.5 C 57 L 18 143/77 H 92
--- NOTE | 2021-07-24 16:34 | Electrocardiogram Report ---
Test Reason : Blood Pressure : / mmHG Vent. Rate : 057 BPM Atrial Rate : 060 BPM P-R Int : 000 ms QRS Dur : 092 ms QT Int : 440 ms P-R-T Axes : 000 -34 044 degrees QTc Int : 428 ms Poor data quality, interpretation may be adversely affected Atrial fibrillation with slow ventricular response Left axis deviation Nonspecific ST abnormality Abnormal ECG When compared with ECG of 06-JUL-2011 06:49, Atrial fibrillation has replaced Sinus rhythm Vent. rate has decreased BY [address] now depressed in Anterior leads Confirmed by David gNuyen ([id number]) on 07/24/2021 4:34:10 PM Referred By: REFERRED SELF Confirmed By:David Nguyen
[2021-07-24] MEDS: WARFARIN SOD 2.5 MG TAB PO SCH (17:19)
--- NOTE | 2021-07-24 18:36 | Hospitalist Progress Note ---
Date of Service July 24, 2021 Assessment & Plan (1) Hyponatremia: Plan: This is an 81-year-old male who presents with hyponatremia. 1. Hyponatremia: Initially had some nausea, mild GORDON but currently asymptomatic. His sodium is 117 on admission here. He was on torsemide and metolazone at home, which were hold initially. Recently the medications were adjusted. His sodium was 138 in March 2021, was 121 in June 2021. He received 100 mL of hypertonic saline in the ER and it raised sodium from 117 to 118. Discussed with nephrology. Received another 100 mL of hypertonic saline in ICU. Nephrology consulted Hyponatremia in the setting of worsening CKD with nephrotic range proteinuria and recent escalation of diuretics. He has been on torsemide for a long time without hyponatremia. I believe the recent addition of metolazone is the main culprit as well as high fluid intake. I do not think the patient is following a fluid restricted diet. No more hypertonic saline Repeat BMP every 6 hours Torsemide 100 daily to be restarted. This was his longstanding dose for a long time. Do not use metolazone and we would not use it even as an outpatient and listed as an allergy. Even after hospital discharge, he will need frequent labs 2-3 times a week before we see a stable serum sodium and renal function. Recent decline in the kidney function, but this started even before escalation of diuretics. Check urine protein to creatinine ratio. No further workup is needed for acute renal failure other than a renal ultrasound. 2. Hypokalemia: Will replace. 3. Acute kidney injury on chronic kidney disease stage IV going on stage V: Baseline creatinine of 3.3, currently creatinine of 3.76. Management per nephrology, as above. 4. History of hypertension: On hydralazine, Toprol-XL, amlodipine, isosorbide dinitrate. Will monitor the blood pressure. 5. History of diabetes: Will hold his glipizide. Placed him on insulin sliding scale. Follow the blood sugars. Follow HbA1c level. 6. GERD: Continue Protonix. 7. Atrial fibrillation: Rate controlled on Toprol-XL and Coumadin. Follow the PT/INR. 8. BPH: On Flomax. 9. Gout: On allopurinol. 10. LE edema, mostly from renal disease: Will monitor. Seems improved. 11. Thrombocytopenia: Will follow the repeat labs, needs followup. DVT prophylaxis: heparin subcutaneous. DISPOSITION: Closely monitor in the tele floor. PT, OT prior to discharge. Social service to help with discharge planning. Code: full code as per my discussion with the patient. Admission and Anticipated Discharge Date Admission Date: July 23, 2021 Subjective Patient was seen and examined for follow-up of low sodium Lying in bed with no acute distress Earlier today patient refused to get lab drawn and his medication Later she agreed to get blood test done and and to take his medication But she continues to refuse to wear the heart monitor Denies any chest pain, palpitation, dizziness, shortness of breath. Physical Exam Physical Exam: General- No acute distress Head- atraumatic Eyes- PERRL, EOMI, ENT- oropharynx clear Neck- supple, no JVD Lungs- clear to auscultation Heart- regular rhythm; no murmur Abdomen- normal bowel sounds, soft, nontender Extremities- no calf tenderness Neuro- alert, oriented x 3; PERRL, EOMI; no facial palsy; no dysarthria Skin- warm & dry Results & Data Results & Data ([facility]) Vital Signs (Past 12 Hours) Vital Signs Temp Pulse Pulse Resp BP BP Pulse Ox 07/24/21 15:59 36.8 C 57 L 18 116/57 L 96 07/24/21 11:29 36.6 C 64 20 165/72 H 07/24/21 08:00 48 L 07/24/21 07:30 48 L
[2021-07-25] MEDS: ISOSORBIDE DINITRATE 20 MG TAB PO SCH ×2 (06:02→13:21)
[2021-07-25] MEDS: LEVOTHYROXINE SODIUM 88 MCG TABLET PO SCH (06:03)
[2021-07-25 06:18] LABS: INR 1.2 (0.9-1.1); Prothrombin Time 12.2 Seconds (9.0-12.0)
[2021-07-25] MEDS ORDERED: ERGOCALCIFEROL 50,000 UNITS 1250 MCG CAP PO SCH (09:00)
[2021-07-25] MEDS: INSULIN ASPART 100 UNITS/ML 3 ML PEN SC SCH ×4 (09:05→20:36)
[2021-07-25] MEDS: allopurinoL 300 MG TAB PO SCH (09:07)
[2021-07-25] MEDS: amLODIPine BESYLATE 5 MG TAB PO SCH (09:07)
[2021-07-25] MEDS: hydrALAZINE TAB 50 MG TAB PO SCH ×2 (09:08→20:59)
[2021-07-25] MEDS: METOPROLOL SUCC 50MG EXT REL TAB PO SCH ×2 (09:08→20:58)
[2021-07-25] MEDS: CALCITRIOL 0.25 MCG CAPSULE PO SCH (09:08)
[2021-07-25] MEDS: ASCORBIC ACID 500 MG TAB PO SCH (09:08)
[2021-07-25] MEDS: MAGNESIUM OXIDE 400 MG TAB PO SCH (09:08)
[2021-07-25] MEDS: GABAPENTIN 100 MG CAP PO SCH ×3 (09:08→20:57)
[2021-07-25] MEDS: TAMSULOSIN HCL 0.4 MG CAP PO SCH (09:09)
[2021-07-25] MEDS: TORSEMIDE 100 MG TAB PO SCH (09:09)
[2021-07-25] MEDS: MULTIVITAMIN TAB PO SCH (09:09)
[2021-07-25] MEDS: PANTOprazole 40 MG TAB PO SCH (09:09)
[2021-07-25 11:46] LABS: BUN Creatinine Ratio 20.9 (10-20); Calcium 9.2 mg/dl (8.5-10.1); Creatinine Clr Calc Pharmacy 17.7 ml/min; Est GFR (African American) 15.8 ml/min; Est GFR (Non-African American) 13.7 ml/min; Potassium 3.5 mmol/L (3.5-5.1)
--- NOTE | 2021-07-25 14:58 | Nephrology Progress Note ---
Date of Service July 25, 2021 Assessment & Plan Admission and Anticipated Discharge Date Admission Date: July 23, 2021 Subjective Subjective Feels fine. na 123. making urine PHYSICAL EXAMINATION: GENERAL: The patient is not in any respiratory distress at this time. He is awake, alert, oriented x3. HEENT: Mucous membrane is moist. NECK: Supple. No jugular venous distention. VITAL SIGNS: 99% on room air, blood pressure is 121/62, pulse rate 47, temperature 36.9. CHEST: Bilateral decreased breath sounds, prolonged expiration. CARDIOVASCULAR: S1 and S2, regular. ABDOMEN: Soft, nontender. EXTREMITIES: Shows trace edema, but this is substantially less than what he had in the recent past. He does have some skin changes in his left lower extremity along the tibial border LABORATORY TESTS: Sodium this morning most recent is 123 and creat stable. ASSESSMENT AND PLAN: An 81-year-old male with chronic kidney disease stage IV, now approaching chronic kidney disease V admitted with hyponatremia. Hyponatremia: This is in the setting of worsening chronic kidney disease with nephrotic range proteinuria and recent escalation of diuretics. He has been on torsemide for a long time without hyponatremia. I believe the recent addition of metolazone is the main culprit as well as high fluid intake. I do not think the patient is following a fluid restricted diet. RECOMMENDATIONS: 1. BMP every 24 hours. 3. Torsemide 100 daily . Stop Salt tab. NS 50 /hr for 1/2 liters. 4. Do not use metolazone and we would not use it even as an outpatient and listed as an allergy. 5. Even after hospital discharge, he will need frequent labs 2-3 times a week before we see a stable serum sodium and renal function. 6. Recent decline in the kidney function, but this started even before escala tion of diuretics. He has reached CKD 5 now. US renal--Atrophic kidneys. No further workup is needed. Results & Data ([facility]) Vital Signs (Past 12 Hours) Vital Signs Temp Pulse Resp BP Pulse Ox 07/25/21 14:47 37 C 67 18 117/67 97 07/25/21 07:39 37.1 C 63 18 115/62 96
[2021-07-25] MEDS: SODIUM CHLORIDE 0.9% 1000ML 1,000 ML IV SCH (15:35)
[2021-07-25] MEDS: WARFARIN SOD 2.5 MG TAB PO SCH (17:04)
--- NOTE | 2021-07-25 17:06 | Hospitalist Progress Note ---
Date of Service July 25, 2021 Assessment & Plan (1) Hyponatremia: Plan: This is an 81-year-old male who presents with hyponatremia. 1. Hyponatremia: Initially had some nausea, mild GORDON but currently asymptomatic. His sodium is 117 on admission here. He was on torsemide and metolazone at home, which were hold initially. Recently the medications were adjusted. His sodium was 138 in March 2021, was 121 in June 2021. He received 100 mL of hypertonic saline in the ER and it raised sodium from 117 to 118. then Received another 100 mL of hypertonic saline in ICU. Nephrology consulted Hyponatremia in the setting of worsening CKD with nephrotic range proteinuria and recent escalation of diuretics. He has been on torsemide for a long time without hyponatremia. Hyponatremia seems to be related due to recent addition of metolazone as well as high fluid intake. No more hypertonic saline Case discussed with nephrology recommend to start on torsemide 100 mg daily and IVF NSS at 50cc/hr x 1 bag Sodium improved from 121 to 123 today We will not restart metolazone on discharge and will be listed as an allergy. Even after hospital discharge, he will need frequent labs 2-3 times a week before we see a stable serum sodium and renal function. Continue monitor BMP Hypokalemia: K stable Monitor BMP Acute kidney injury on chronic kidney disease stage IV going on stage V: Baseline creatinine of 3.3, currently creatinine of 3.9. Nephrology on board Continue monitor BMP History of hypertension: On hydralazine, Toprol-XL, amlodipine, isosorbide dinitrate. BP stable 5. History of diabetes: Most recent hemoglobin A1c 6.2 on 07/23/21 Continue to hold your glipizide Continue insulin sliding scale Continue monitor blood sugar GERD: Continue Protonix. Atrial fibrillation: Rate controlled on Toprol-XL and Coumadin. INR 1.2 today, will increase Coumadin to 5 mg Continue monitor PT/INR BPH: On Flomax. Gout: On allopurinol Stable DVT prophylaxis: heparin subcutaneous. Code status full code DISPOSITION: Closely monitor in the tele floor. PT, OT prior to discharge. Social service to help with discharge planning. Admission and Anticipated Discharge Date Admission Date: July 23, 2021 Subjective Patient was seen and examined for follow-up of low sodium Lying in bed with no acute distress Patient said that he feels fine Denies any chest pain, palpitation, dizziness, shortness of breath. Physical Exam 2 Physical Exam: General- No acute distress Head- atraumatic Eyes- PERRL, EOMI, ENT- oropharynx clear Neck- supple, no JVD Lungs- clear to auscultation Heart- regular rhythm; no murmur Abdomen- normal bowel sounds, soft, nontender Extremities- no calf tenderness, +edema Neuro- alert, oriented x 3; PERRL, EOMI; no facial palsy; no dysarthria Skin- warm & dry Results & Data Results & Data ([facility]) Vital Signs (Past 12 Hours) Vital Signs Temp Pulse Resp BP Pulse Ox 07/25/21 14:47 37 C 67 18 117/67 97 07/25/21 07:39 37.1 C 63 18 115/62 96
[2021-07-25] MEDS ORDERED: WARFARIN SOD 2 MG TAB PO ONE (17:08)
[2021-07-26] MEDS: LEVOTHYROXINE SODIUM 88 MCG TABLET PO SCH (05:54)
[2021-07-26] MEDS: ISOSORBIDE DINITRATE 20 MG TAB PO SCH ×2 (05:56→12:55)
[2021-07-26 06:32] LABS: INR 1.2 (0.9-1.1); Prothrombin Time 12.3 Seconds (9.0-12.0)
[2021-07-26 06:35] LABS: Hematocrit (blood only) 32.6 % (42-52); Hemoglobin 11.1 g/dL (14.0-18.0); Mean Corpuscular Hemoglobin 28.4 pg (25-34); Mean Corpuscular Volume 83.4 fL (80-100); RDW Coefficient of Variation 17.6 % (11.5-14.5); Red Blood Count 3.91 M/uL (4.7-6.1)
[2021-07-26 06:57] LABS: BUN Creatinine Ratio 21.3 (10-20); Calcium 9.4 mg/dl (8.5-10.1); Creatinine Clr Calc Pharmacy 16.6 ml/min; Est GFR (African American) 14.6 ml/min; Est GFR (Non-African American) 12.6 ml/min; Potassium 3.1 mmol/L (3.5-5.1)
[2021-07-26 07:10] LABS: Mean Platelet Volume 10.9 fL (7.4-10.4); Platelet Count 110 K/uL (130-400)
[2021-07-26 07:11] LABS: Platelet Estimate Decreased (Normal)
[2021-07-26] MEDS ORDERED: POTASSIUM CHLORIDE CRTAB 20 MEQ TABCR PO STA ×2 (08:41→09:31)
[2021-07-26] MEDS: ASCORBIC ACID 500 MG TAB PO SCH (09:20)
[2021-07-26] MEDS: MAGNESIUM OXIDE 400 MG TAB PO SCH (09:20)
[2021-07-26] MEDS: allopurinoL 300 MG TAB PO SCH (09:20)
[2021-07-26] MEDS: PANTOprazole 40 MG TAB PO SCH (09:20)
[2021-07-26] MEDS: amLODIPine BESYLATE 5 MG TAB PO SCH (09:20)
[2021-07-26] MEDS: hydrALAZINE TAB 50 MG TAB PO SCH (09:21)
[2021-07-26] MEDS: TAMSULOSIN HCL 0.4 MG CAP PO SCH (09:21)
[2021-07-26] MEDS: GABAPENTIN 100 MG CAP PO SCH ×2 (09:21→14:08)
[2021-07-26] MEDS: CALCITRIOL 0.25 MCG CAPSULE PO SCH (09:22)
[2021-07-26] MEDS: MULTIVITAMIN TAB PO SCH (09:22)
[2021-07-26] MEDS: TORSEMIDE 100 MG TAB PO SCH (09:23)
[2021-07-26] MEDS: METOPROLOL SUCC 50MG EXT REL TAB PO SCH (09:27)
[2021-07-26] MEDS: INSULIN ASPART 100 UNITS/ML 3 ML PEN SC SCH ×2 (09:28→12:57)
[2021-07-26] MEDS: SODIUM CHLORIDE 0.9% 1000ML 1,000 ML IV SCH (10:35)
--- NOTE | 2021-07-26 11:41 | Nephrology Progress Note ---
Date of Service July 26, 2021 Assessment & Plan Admission and Anticipated Discharge Date Admission Date: July 23, 2021 Subjective Subjective Feels fine. na 124. making urine. No Symptoms at all and really desperate to go home now PHYSICAL EXAMINATION: GENERAL: The patient is not in any respiratory distress at this time. He is awake, alert, oriented x3. HEENT: Mucous membrane is moist. NECK: Supple. No jugular venous distention. VITAL SIGNS: 99% on room air, blood pressure is 121/62, pulse rate 47, temperature 36.9. CHEST: Bilateral decreased breath sounds, prolonged expiration. CARDIOVASCULAR: S1 and S2, regular. ABDOMEN: Soft, nontender. EXTREMITIES: Shows trace edema, but this is substantially less than what he had in the recent past. He does have some skin changes in his left lower extremity along the tibial border LABORATORY TESTS: Sodium this morning most recent is 1234 and creat stable around 4. ASSESSMENT AND PLAN: An 81-year-old male with chronic kidney disease stage IV, now approaching chronic kidney disease V admitted with hyponatremia. Hyponatremia: This is in the setting of worsening chronic kidney disease with nephrotic range proteinuria and recent escalation of diuretics. He has been on torsemide for a long time without hyponatremia. I believe the recent addition of metolazone is the main culprit as well as high fluid intake. I do not think the patient is following a fluid restricted diet. RECOMMENDATIONS: 1. for discharge Torsemide 50 daily . this is lot less than his previous dose. 4. Do not use metolazone and we would not use it even as an outpatient and list as an allergy. 5. Even after hospital discharge, he will need frequent labs 2-3 times a week before we see a stable serum sodium and renal function. Has appt with me in 3 da ys which he needs to keep for sure. 6. Recent decline in the kidney function, but this started even before escalation of diuretics. He has reached CKD 5 now but not quite dialysis as of now but very close. US renal--Atrophic kidneys. No further workup is needed. Results & Data ([facility]) Vital Signs (Past 12 Hours) Vital Signs Temp Pulse Pulse Resp BP BP Pulse Ox 07/26/21 09:26 57 L 120/64 97 07/26/21 07:56 36.4 C L 52 L 16 112/65 95 07/26/21 05:53 72 126/78
--- NOTE | 2021-07-26 15:37 | Discharge Summary ---
Date of Service July 26, 2021 Admission HPI Per Admitting Provider CHIEF COMPLAINT: Hyponatremia. 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 Lives with his , presents with abnormal labs of low sodium. The patient is having problems with his lower extremity edema and his diuretic dose was recently adjusted to torsemide 100 mg b.i.d., but recent labs yesterday showed sodium of 121. His metolazone dose was adjusted and torsemide he was advised to take only once daily and today again labs showed a sodium of 116. He was advised to go to ER. Here in the ER, his sodium was 117. He says he had some nausea early in the morning, but that is improved now. After 100 mL of hypertonic saline, sodium came up to 118. Currently, resting comfortably, hemodynamically stable. Denies any headache, no dizziness, no blurred vision, no earache, no runny nose, no sore throat, no cough. Appetite is okay, swallows okay. No chest pain, no shortness of breath. Currently no nausea, no abdominal pain. Somewhat constipated. No blood in the stools. Normal micturition. No burning micturition. No hematuria. Says his edema of the legs is same. He has some skin changes on the left rose. Admission Exam Per Admitting Provider GENERAL: The patient is obese, not in acute distress. VITAL SIGNS: Temperature 36.6, pulse 56, respiratory rate 19, blood pressure 130/80, oxygen 99% on room air. HEENT: Pupils equal, round and reactive to light. Oral mucosa moist. NECK: No JVD. No neck masses. CARDIOVASCULAR: S1 and S2 heard. Regular rate and rhythm. No murmur, no gallop. RESPIRATORY SYSTEM: Normal AP diameter. No accessory muscle use. No wheezing, no crackles. ABDOMEN: Soft, bowel sounds present, nontender, no distention. CENTRAL NERVOUS SYSTEM: Alert and oriented. Speech is clear. No facial droop. Obeys commands. Moves extremities. EXTREMITIES: Bilateral lower extremity edema present with some skin changes on the left rose. Principal Diagnosis Hyponatremia Hypokalemia Acute kidney injury on chronic kidney disease stage IV going on stage V: History of hypertension: History of diabetes: Atrial fibrillation: BPH: Discharge Exam General- No acute distress Head- atraumatic Eyes- PERRL, EOMI, ENT- oropharynx clear Neck- supple, no JVD Lungs- clear to auscultation Heart- regular rhythm; no murmur Abdomen- normal bowel sounds, soft, nontender Extremities- no calf tenderness, +edema Neuro- alert, oriented x 3; PERRL, EOMI; no facial palsy; no dysarthria Skin- warm & dry Discharge Data Allergies Allergy/AdvReac Type Severity Reaction Status Date / Time morphine AdvReac Intermediate "HALLUCINAT Verified 07/23/21 01:40 E" oxycodone AdvReac Intermediate "HALLUCINAT Verified 07/23/21 01:40 E" Penicillins AdvReac Unknown HALLUCINATI Unverified 07/23/21 01:40 ONS Consultations 07/22/21 22:49 ED Decision to Admit Stat 07/23/21 01:38 Consult Automobile Technician Routine 07/23/21 08:00 Consult Nephrology Routine Ordered Studies 07/23/21 12:05 US renal/blad retro comp Routine ULTRASOUND KIDNEYS AND BLADDER CLINICAL HISTORY: Acute on chronic renal insufficiency. COMPARISON STUDY: Abdominal CT dated 05/31/2019 TECHNIQUE: Real-time, grayscale, and color flow sonography of the kidneys and bladder is performed. Images are reviewed in the transverse and longitudinal planes. FINDINGS: Kidneys: The kidneys are atrophic and echogenic consistent with medical renal disease. The right kidney measures 8.7 x 5.0 x 3.6 cm and the left kidney measures 11.2 x 5.3 x 5.8 cm. There is no hydronephrosis. No shadowing renal calculi are identified. Bilateral renal cysts measure up to 3.4 cm. There is no sonographic evidence of contour deforming renal mass lesion. No perinephric fluid is identified. Bladder: The bladder wall appears thickened and trabeculated indicating chronic outlet obstruction. Only the right ureteral jet was seen. IMPRESSION: 1. The kidneys are atrophic and echogenic consistent with medical renal disease. 2. There is no hydronephrosis. 3. The appearance of the bladder suggests chronic outlet obstruction. ACT 112: Negative or not required by law. Electronically signed by: Pierce Pacheco M.D. 07/23/2021 2:27 PM Dictated: 07/23/21 1424Transcribed: 07/23/21 1424 SINGLE VIEW CHEST CLINICAL HISTORY: Acute on chronic renal insufficiency. FINDINGS: 2 AP, portable, upright chest radiographs are compared to study dated 09/18/2018 and correlated with chest CT dated 09/08/2018. The examination is degraded by portable technique, apical lordotic positioning, and patient rotation. There are calcified mediastinal and hilar lymph nodes. The heart is enlarged noting atherosclerotic calcification of the thoracic aorta. The pulmonary vasculature is noncongested. There are numerous calcified granulomas. Chronic interstitial thickening is similar to previous. Scarring/atelectasis is noted at the lung bases. No airspace consolidation or large pleural effusion is identified. No pneumothorax is seen. The skeletal structures are osteopenic. The bony thorax is grossly intact. IMPRESSION: Cardiomegaly with no acute cardiopulmonary abnormality. ACT 112: Negative or not required by law. Electronically signed by: Pierce Pacheco M.D. 07/23/2021 3:08 PM Dictated: 07/23/21 1506Transcribed: 07/23/21 1506 Hospital Course (1) Hyponatremia: This is an 81-year-old male who presents with hyponatremia. 1. Hyponatremia: Initially had some nausea, mild GORDON but currently asymptomatic. His sodium is 117 on admission here. He was on torsemide and metolazone at home, which were hold initially. Recently the medications were adjusted. His sodium was 138 in March 2021, was 121 in June 2021. He received 100 mL of hypertonic saline in the ER and it raised sodium from 117 to 118. then Received another 100 mL of hypertonic saline in ICU. Nephrology consulted Hyponatremia in the setting of worsening CKD with nephrotic range proteinuria a nd recent escalation of diuretics. He has been on torsemide for a long time without hyponatremia. Hyponatremia seems to be related due to recent addition of metolazone as well as high fluid intake. No more hypertonic saline Sodium 124 today Case discussed with nephrology Dr. Jaramillo that recommended to discharge him on Torsemide 50mg daily and continue 1200ml fluid restriction daily Ok with nephrology to discharge home today since pt is desperate to go home Follow up with nephrology on Thursday at the [facility] We will not restart metolazone on discharge and will be listed as an allergy. Even after hospital discharge, he will need frequent labs 2-3 times a week before we see a stable serum sodium and renal function. Continue monitor BMP Hypokalemia: Potassium 3.1 today K replaced Monitor BMP Acute kidney injury on chronic kidney disease stage IV going on stage V: Baseline creatinine of 3.3, currently creatinine of 4.1 Nephrology on board Check BMP next week Continue monitor BMP History of hypertension: On hydralazine, Toprol-XL, amlodipine, isosorbide dinitrate. BP stable 5. History of diabetes: Most recent hemoglobin A1c 6.2 on 07/23/21 Continue to hold your glipizide Continue insulin sliding scale Continue monitor blood sugar GERD: Continue Protonix. Atrial fibrillation: Rate controlled on Toprol-XL and Coumadin. INR 1.2 today, will increase Coumadin to 5 mg Follow up with the coag clinic Continue monitor PT/INR BPH: On Flomax. Gout: On allopurinol Stable DVT prophylaxis: heparin subcutaneous. Code status full code DISPOSITION: Discharge home today Total Time Total Time Spent Total Time Spent (In Minutes): 40 minutes Discharge Plan Discharge Items Patient Disposition: Home - Self-Care Reason For Visit: HYPONATREMIA Discharge Diagnosis: Hyponatremia Hypokalemia Acute kidney injury on chronic kidney disease stage IV going on stage V: History of hypertension: History of diabetes: Atrial fibrillation: BPH: Activity: Resume your previous activity Non-emergency contact: Primary Care Provider Call non-emergency contact if: you have any medication questions Follow-up/Referrals: David Jaramillo MD [Surgeon] - (Date & Time 07/29/2021 11:40 AM Provider [facility] Suman Simpson MD [Primary Care Provider] - (Date & Time 08/01/2021 11:20 AM Provider Suman Simpson MD Department [facility] ) Diet: Carb Consistent or DM2 and Heart Healthy Addtl Attending Provider Instructions: Follow up with your nephrology Dr. Jaramillo on 07/29/2021 at 11:40 AM at the [facility] Follow up with your primary care provider Dr. Simpson on 08/01/2021 at 11:20 AM at the [facility] Follow up with the coumadin clinic to monitor your PT/INR ( Please check the INR on Thursday) Check BMP on Thursday to monitor your electrolytes and renal function Continue fluid restriction to 1.2 Liter daily ( including milk, coffee, chocolate, juice, electrolytes drink,..) Torsemide decreases to 50mg daily Discontinued Metolazone Fall precaution Pending Studies at Discharge: No Stand-Alone Forms: My [facility] [employer], Smoking Cessation Medications and DC Order Prescriptions: Continued multivitamin Tablet 1 tab PO DAILY RF: 0 albuterol sulfate 2.5 mg /3 mL (0.083 %) Solution For Nebulization 2.5 mg INHALATION UD PRN (Reason: Shortness Of Breath Or Wheezing) RF: 0 metoprolol succinate 100 mg tablet extended release 24 hr 100 mg PO BID RF: 0 warfarin 2.5 mg tablet 0 mg PO UD RF: 0 amlodipine 2.5 mg tablet 2.5 mg PO DAILY RF: 0 tramadol 50 mg Tablet 50 mg PO Q6H PRN (Reason: Pain) RF: 0 garlic 1,000 mg Capsule 1,000 mg PO DAILY RF: 0 levothyroxine 88 mcg tablet 88 mcg PO DAILY RF: 0 magnesium oxide 400 mg (241.3 mg magnesium) tablet 400 mg PO DAILY RF: 0 ascorbic acid (vitamin C) [Vitamin C] 500 mg Tablet 500 mg PO DAILY RF: 0 tamsulosin 0.4 mg capsule 0.4 mg PO DAILY RF: 0 hydralazine 100 mg tablet 100 mg PO BID RF: 0 pantoprazole 40 mg tablet,delayed release (DR/EC) 40 mg PO DAILY RF: 0 isosorbide dinitrate 20 mg tablet 20 mg PO BID RF: 0 vitamin E 400 unit Tablet 400 unit PO DAILY RF: 0 allopurinol 300 mg tablet 300 mg PO DAILY RF: 0 gabapentin 100 mg capsule 100 mg PO TID RF: 0 ergocalciferol (vitamin D2) [Vitamin D2] 1,250 mcg (50,000 unit) capsule 50,000 unit PO WK RF: 0 albuterol sulfate 90 mcg/actuation HFA aerosol inhaler 2 puff INHALATION Q4 PRN (Reason: Shortness Of Breath Or Wheezing) RF: 0 calcitriol 0.25 mcg capsule 0.25 mcg PO DAILY RF: 0 glipizide 5 mg tablet 2.5 mg PO DIRECTED RF: 0 omega-3 fatty acids Capsule 1,000 mg PO DAILY RF: 0 Robitussin 12 Hr Cough 0 ml PO UD RF: 0 Changed torsemide 100 mg tablet 50 mg PO DAILY 30 Days Qty: 15 RF: 0 Discontinued metolazone 5 mg tablet 5 mg PO 3XWK RF: 0 Discharge Orders: Discharge Order (Routine); Ordered 07/26/21 Ordered By: Yohana Schaffer/Other Patient Handouts: A1C, High Blood Sugar (Hyperglycemia), Hypoglycemia (Low Blood Sugar), Managing Type 2 Diabetes Admission Data Admit Date/Time: 07/23/21 00:57 Attending Provider: Yohana Kumar Admit Provider: Edilson Tillman Primary Care Provider: Suman Simpson Other Providers: Adiel Robledo ; Edilson Tillman ; Richard Early ; Jerald Valentine Other Interventions: Discharge Summary Assessment (RN) Last Done: 07/26/21 16:31
[2021-07-26] MEDS ORDERED: WARFARIN SOD 5 MG TAB PO SCH (16:00)
== END 2021-07-26 17:23 | disposition home or self-care (01) | DRG 641 ==
LOC: ED 18:26 → SUATTDRO 07-23 00:57 → 1E 07-23 00:57 → 2S 07-23 19:45 → 3N 07-24 20:29

== ENCOUNTER 2023-01-19 12:52 | Observation (INO) ==
--- NOTE | 2023-01-19 13:11 | Emergency Department Note ---
Impression & Plan Atypical chest pain, Elevated troponin, CKD (chronic kidney disease), Anemia ED Provider Note NAME: WOJCIECH QUINONES AGE: 82 SEX: M : 1940 ARRIVES VIA: Ambulance INFORMANT: Patient, ED PROVIDER(S): Greg Hawthorne MD CHIEF COMPLAINT: Chest pain MEDICAL DECISION MAKING: Patient presents due to concern for intermittent chest pain. The patient did have chest pain today for approximately 1 and half hours. The patient did have blood work completed and IV was established patient was placed on monitor. A [id number] BMP was obtained given the patient's known history of CKD. Troponin also obtained. White count mild anemia hemoglobin of 10.5. Patient has been in the tens and 11's in the past. The patient has mild thrombocytopenia at 122. INR is therapeutic at 2.3. Mild hyponatremia noted. Patient does have kidney dysfunction with a creatinine of 4 but potassium is normal. Initial troponin of 290. The patient states that his pain is about a 2 out of 10. Sublingual nitro ordered as needed. EKG with no ST elevations. I did speak with the on-call hospitalist Esha Ponce PA-C and the patient was admitted by Dr. Wong. Chest x-ray with cardiomegaly. Clavicular fracture again noted Prior /Outside records reviewed: Patient presents with a known history of A-fib on Coumadin CKD hypertension BPH and GERD. I did review that the patient did have a left upper extremity AV fistula completed by Dr. Salmeron in August 2021. Differential diagnosis: Cardiac ischemia, aortic dissection, pulmonary embolism, pneumothorax, pneumonia, pericarditis, myocarditis, esophageal rupture, GERD, cholecystitis, pancreatitis, musculoskeletal, as well as other pathologies. Diagnostics, as interpreted by me: ECG: Likely A-fib, ventricular rate of 85, normal QRS normal axis. PVCs noted. Cardiac monitoring: An order was placed for continuous cardiac monitoring. The monitor shows a rate of 88 with irregularly irregular rhythm. Patient was placed on pulse oximetry Medical decision rules: None Imaging studies: See below HPI: Patient presents due to concern for chest pain. The patient states that he felt generally unwell last evening. Patient does have a known history of A-fib takes his Coumadin and did take it last evening. Patient denies any nausea vomiting or diarrhea. Patient denies any falls or trauma in the last 48 hours of the patient was seen in the emergency department for a fall several weeks ago was diagnosed with a broken collarbone. Patient states that he is compliant with his medications and has followed with Dr. Lozoya for cardiology in the past. The patient did receive 4 baby aspirin in route no nitro. Patient does have a known history of CKD but has not required dialysis yet. The patient did receive the fistula before. Patient states that his chest pain was chest tightness centralized nonradiating. No specific exertional symptoms patient denies any cough or fever. No alcohol or tobacco use PAST MEDICAL HISTORY: See Below PAST SURGICAL HISTORY: See Below SOCIAL HISTORY: See Below HOME MEDICATIONS: See Below ALLERGIES: See Below VITALS: See Below PHYSICAL EXAMINATION: GENERAL: NAD, wearing a mask, non-toxic. EYE EXAM: Normal conjunctiva. PERRL, no anisocoria and EOM's grossly intact w/o pain. NECK: Supple, no nuchal rigidity, no adenopathy, non-tender. No signs of meningismus. FROM of the neck with good chin to chest and neck extension. No stridor. LUNGS: Clear to auscultation. Normal chest wall mechanics. HEART: Irregularly irregular, no MRG. ABDOMEN: Abdomen soft, non-tender, normo-active bowel sounds, no masses, no rebound or guarding. BACK: No CVA TTP. SKIN: No rashes and no bruising. UPPER EXTREMITIES: Upper extremities are grossly normal. Left upper extremity with palpable thrill located over the left wrist/distal forearm area LOWER EXTREMITIES: Grossly normal, no edema. 1+ bilateral symmetric lower extremity edema with small areas of wounds without any surrounding crepitus, scant clear drainage noted. Neurovascular intact distally. NEURO EXAM: A&O x3, cranial nerves II-XII grossly intact, normal speech, moves all 4 extremities. Past Med/Surg History Medical History Anemia Chronic, baseline hgb 11 per chart review Atrial fibrillation Follows with Dr. Lozoya, on warfarin BPH (benign prostatic hyperplasia) Chronic back pain CKD (chronic kidney disease) Stage 5 CKD, follows with Dr. Jaramillo COPD (chronic obstructive pulmonary disease) Deaf Left GERD (gastroesophageal reflux disease) Hyperlipidemia Hypertension Hypothyroidism Thrombocytopenia Chronic, baseline low 100s per chart review Type 2 diabetes mellitus NIDDM Surgical History Fusion of spine Lumbar Fusion of spine Neck History of cardiac cath 2011 > no stents History of carpal tunnel release R/L History of colonoscopy History of repair of rotator cuff Left History of total knee replacement R/L Nausea and vomiting after administration of anesthetic agent Family History Mother Cancer Other Family history non-contributory Social History Smoking Status: Never smoker Second Hand Exposure: Yes ( A CHILD, AT WORK); Hx Alcohol Use: No Hx Substance Use: No Preferred Language: Polish Communication Ability: Effective Apartment Coordinator Required: No Beliefs That Will Affect Care: None marital status: Current Living Situation: Spouse Other Information That Helps Us Care for You: No Feels Safe at Home: Yes Safety Concerns: Feels Safe At This Time Assistive Devices: Cane Allergies Allergies Allergy/AdvReac Type Severity Reaction Status Date / Time metolazone AdvReac Severe SEVERE Verified 01/19/23 15:53 HYPONATREMIA morphine AdvReac Intermediate Hallucinati Verified 01/19/23 15:53 ons oxycodone AdvReac Intermediate Hallucinati Verified 01/19/23 15:53 ons Penicillins AdvReac Intermediate Hallucinati Verified 01/19/23 15:53 ons Home Meds Home Medications Medication Instructions Recorded Confirmed allopurinol 300 mg tablet 300 mg PO QAM 07/23/21 01/19/23 amlodipine 2.5 mg tablet 2.5 mg PO QAM 07/23/21 01/19/23 ascorbic acid (vitamin C) 500 mg 500 mg PO QAM 07/23/21 01/19/23 tablet (Vitamin C) gabapentin 100 mg capsule 100 mg PO TID 07/23/21 01/19/23 glipizide 5 mg tablet 5 mg PO BID 07/23/21 01/19/23 hydralazine 100 mg tablet 100 mg PO BID 07/23/21 01/19/23 isosorbide dinitrate 20 mg tablet 20 mg PO BID 07/23/21 01/19/23 levothyroxine 88 mcg tablet 88 mcg PO DAILYBB 07/23/21 01/19/23 metoprolol succinate 100 mg 100 mg PO BID 07/23/21 01/19/23 tablet,extended release 24 hr multivitamin 1 tab PO QAM 07/23/21 01/19/23 pantoprazole 40 mg tablet,delayed 40 mg PO DAILYBB 07/23/21 01/19/23 release tamsulosin 0.4 mg capsule 0.4 mg PO QAM 07/23/21 01/19/23 warfarin 2.5 mg tablet 2.5 mg PO SUTUWETHSA@1600 07/23/21 01/19/23 torsemide 100 mg tablet See Rx Instructions .Route .COMPLEX 09/12/21 01/19/23 bisacodyl 5 mg tablet 5 - 10 mg PO DAILY PRN Constipation 01/19/23 01/19/23 vitamin E 268 mg (400 unit) capsule 268 mg PO DAILY 01/19/23 01/19/23 warfarin 2.5 mg tablet (Jantoven) 5 mg PO MOFR@1600 01/19/23 01/19/23 Results & Data (ED) Vital Signs Vital Signs - 24 hr 01/19/23 12:59 01/19/23 12:39 01/19/23 12:39 Temperature 36.7 C 36.6 C Temperature Source Oral Oral Pulse Rate 90 75 Pulse Rate [Right Finger] Pulse Rate from SpO2 Sensor Respiratory Rate 18 16 Respiratory Effort / Characteristics Respiratory Depth Blood Pressure 133/75 Blood Pressure [Right Arm] Blood Pressure Mean 94 Blood Pressure Mean [Right Arm] Pulse Oximetry 100 95 Oxygen Delivery Method Sepsis Recent Fever Within 48 Hours No Sepsis New/Unexplained Change in Mental Status N/A Sepsis Action Taken by Nursing No Action Required 01/19/23 13:00 01/19/23 14:00 01/19/23 15:29 Temperature Temperature Source Pulse Rate 85 78 74 Pulse Rate [Right Finger] Pulse Rate from SpO2 Sensor 80 Respiratory Rate 14 15 16 Respiratory Effort / Characteristics Respiratory Depth Blood Pressure 133/74 124/70 Blood Pressure [Right Arm] Blood Pressure Mean 93 88 Blood Pressure Mean [Right Arm] Pulse Oximetry 100 99 Oxygen Delivery Method Room Air Sepsis Recent Fever Within 48 Hours Sepsis New/Unexplained Change in Mental Status Sepsis Action Taken by Nursing 01/19/23 15:29 Temperature Temperature Source Pulse Rate Pulse Rate [Right Finger] 74 Pulse Rate from SpO2 Sensor Respiratory Rate 16 Respiratory Effort / Characteristics Non-Labored Respiratory Depth Normal Blood Pressure Blood Pressure [Right Arm] 123/73 Blood Pressure Mean Blood Pressure Mean [Right Arm] 89 Pulse Oximetry 99 Oxygen Delivery Method Room Air Sepsis Recent Fever Within 48 Hours Sepsis New/Unexplained Change in Mental Status Sepsis Action Taken by Jail Medications Current Medication List: was personally reviewed by me Laboratory Data Attestation: I reviewed the patient's lab results. 01/19/23 13:38 01/19/23 13:38 Lab Results 01/19/23 01/19/23 01/19/23 Range/Units 13:34 13:38 13:38 WBC 6.58 (4.8-10.8) K/ul RBC 3.45 L (4.70-6.10) M/uL Hgb 10.5 L (14.0-18.0) g/dl POC Hgb 11.2 L (14.0-18.0) g/dl Hct 32.1 L (42.0-52.0) % POC Hct 33 L (42-52) % MCV 93.0 (80.0-100.0) fL MCH 30.4 (25.0-34.0) pg MCHC 32.7 (32.0-36.0) g/dL RDW Std Deviation 55.6 H (36.4-46.3) fL RDW Coeff of Yanira 16.6 H (11.5-14.5) % Plt Count 122 L (130-400) K/uL MPV 12.0 (9.4-12.4) fL Immature Gran % (Auto) 0.8 % Neut % (Auto) 72.2 % Lymph % (Auto) 11.9 % Meagher % (Auto) 9.3 % Eos % (Auto) 5.2 % Baso % (Auto) 0.6 % Neut # (Auto) 4.76 (1.40-6.50) K/uL Lymph # (Auto) 0.78 L (1.2-3.4) K/uL Meagher # (Auto) 0.61 H (0.11-0.59) K/uL Eos # (Auto) 0.34 (0-0.50) K/uL Baso # (Auto) 0.04 (0-0.2) K/uL Immature Gran # (Auto) 0.05 (0.01-0.20) K/uL PT (9.0-12.0) Seconds INR (0.9-1.1) APTT (21.0-31.0) Seconds PTT Ratio POC Sodium 132 L (135-144) mmol/L Sodium 133 L (136-145) mmol/L POC Potassium 4.0 (3.3-5.0) mmol/L Potassium 4.1 (3.5-5.1) mmol/L POC Chloride 98 L (101-112) mmol/L Chloride 96 L (98-107) mmol/L Carbon Dioxide 24 (21-32) mmol/L POC Total CO2 27 (24-31) mmol/L Anion Gap 13 H (3-11) POC Anion Gap 13.0 L (16-25) mmol/L POC BUN 87 H (7-18) mg/dl BUN 90 H (6-23) mg/dl Creatinine 4.03 H (0.6-1.4) mg/dl POC Creatinine 4.5 H (0.6-1.3) mg/dl Est Cr Clr Drug Dosing 16.5 ml/min Est GFR ( Amer) 15.1 ml/min Est GFR (Non-Af Amer) 13.0 ml/min BUN/Creatinine Ratio 22.3 H (10-20) Glucose 109 H (70-99(Fasting)) mg/dl POC Glucose (other) 108 H (70-99) mg/dl Calcium 10.6 H (8.5-10.1) mg/dl POC Ioniz Calcium Bipin 1.18 (1.12-1.32) mmol/l Total Bilirubin 1.1 H (0.2-1.0) mg/dl AST 30 (13-39) U/L ALT 23 (7-52) U/L Alkaline Phosphatase 68 (34-104) U/L Troponin I High Sens 290.6 H* (0-20) pg/ml Total Protein 6.9 (6.0-8.3) gm/dl Albumin 4.3 (3.4-5.0) gm/dl Globulin 2.6 (2.5-4.0) gm/dl Albumin/Globulin Ratio 1.7 (0.9-2) Lipase 17 (11-82) U/L Urine Color Urine Appearance (Clear) Urine pH (4.5-7.5) Ur Specific [place] (1.000-1.030) Urine Protein (Negative) Urine Glucose (UA) (Negative) Urine Ketones (Negative) Urine Blood (Negative) Urine Nitrite (Negative) Urine Bilirubin (Negative) Urine Urobilinogen (Negative) Ur Leukocyte Esterase (Negative) SARS-CoV-2, RNA, NAAT (NEGATIVE) 01/19/23 01/19/23 01/19/23 Range/Units 13:38 14:19 15:00 WBC (4.8-10.8) K/ul RBC (4.70-6.10) M/uL Hgb (14.0-18.0) g/dl POC Hgb (14.0-18.0) g/dl Hct (42.0-52.0) % POC Hct (42-52) % MCV (80.0-100.0) fL MCH (25.0-34.0) pg MCHC (32.0-36.0) g/dL RDW Std Deviation (36.4-46.3) fL RDW Coeff of Yanira (11.5-14.5) % Plt Count (130-400) K/uL MPV (9.4-12.4) fL Immature Gran % (Auto) % Neut % (Auto) % Lymph % (Auto) % Meagher % (Auto) % Eos % (Auto) % Baso % (Auto) % Neut # (Auto) (1.40-6.50) K/uL Lymph # (Auto) (1.2-3.4) K/uL Meagher # (Auto) (0.11-0.59) K/uL Eos # (Auto) (0-0.50) K/uL Baso # (Auto) (0-0.2) K/uL Immature Gran # (Auto) (0.01-0.20) K/uL PT 23.0 H (9.0-12.0) Seconds INR 2.3 H (0.9-1.1) APTT 41.0 H (21.0-31.0) Seconds PTT Ratio 1.5 POC Sodium (135-144) mmol/L Sodium (136-145) mmol/L POC Potassium (3.3-5.0) mmol/L Potassium (3.5-5.1) mmol/L POC Chloride (101-112) mmol/L Chloride (98-107) mmol/L Carbon Dioxide (21-32) mmol/L POC Total CO2 (24-31) mmol/L Anion Gap (3-11) POC Anion Gap (16-25) mmol/L POC BUN (7-18) mg/dl BUN (6-23) mg/dl Creatinine (0.6-1.4) mg/dl POC Creatinine (0.6-1.3) mg/dl Est Cr Clr Drug Dosing ml/min Est GFR ( Amer) ml/min Est GFR (Non-Af Amer) ml/min BUN/Creatinine Ratio (10-20) Glucose (70-99(Fasting)) mg/dl POC Glucose (other) (70-99) mg/dl Calcium (8.5-10.1) mg/dl POC Ioniz Calcium Bipin (1.12-1.32) mmol/l Total Bilirubin (0.2-1.0) mg/dl AST (13-39) U/L ALT (7-52) U/L Alkaline Phosphatase (34-104) U/L Troponin I High Sens (0-20) pg/ml Total Protein (6.0-8.3) gm/dl Albumin (3.4-5.0) gm/dl Globulin (2.5-4.0) gm/dl Albumin/Globulin Ratio (0.9-2) Lipase (11-82) U/L Urine Color Yellow Urine Appearance Clear (Clear) Urine pH 7.5 (4.5-7.5) Ur Specific [place] 1.007 (1.000-1.030) Urine Protein Negative (Negative) Urine Glucose (UA) Negative (Negative) Urine Ketones Negative (Negative) Urine Blood Negative (Negative) Urine Nitrite Negative (Negative) Urine Bilirubin Negative (Negative) Urine Urobilinogen Negative (Negative) Ur Leukocyte Esterase Negative (Negative) SARS-CoV-2, RNA, NAAT NEGATIVE (NEGATIVE) 01/19/23 Range/Units 15:52 WBC (4.8-10.8) K/ul RBC (4.70-6.10) M/uL Hgb (14.0-18.0) g/dl POC Hgb (14.0-18.0) g/dl Hct (42.0-52.0) % POC Hct (42-52) % MCV (80.0-100.0) fL MCH (25.0-34.0) pg MCHC (32.0-36.0) g/dL RDW Std Deviation (36.4-46.3) fL RDW Coeff of Yanira (11.5-14.5) % Plt Count (130-400) K/uL MPV (9.4-12.4) fL Immature Gran % (Auto) % Neut % (Auto) % Lymph % (Auto) % Meagher % (Auto) % Eos % (Auto) % Baso % (Auto) % Neut # (Auto) (1.40-6.50) K/uL Lymph # (Auto) (1.2-3.4) K/uL Meagher # (Auto) (0.11-0.59) K/uL Eos # (Auto) (0-0.50) K/uL Baso # (Auto) (0-0.2) K/uL Immature Gran # (Auto) (0.01-0.20) K/uL PT (9.0-12.0) Seconds INR (0.9-1.1) APTT (21.0-31.0) Seconds PTT Ratio POC Sodium (135-144) mmol/L Sodium (136-145) mmol/L POC Potassium (3.3-5.0) mmol/L Potassium (3.5-5.1) mmol/L POC Chloride (101-112) mmol/L Chloride (98-107) mmol/L Carbon Dioxide (21-32) mmol/L POC Total CO2 (24-31) mmol/L Anion Gap (3-11) POC Anion Gap (16-25) mmol/L POC BUN (7-18) mg/dl BUN (6-23) mg/dl Creatinine (0.6-1.4) mg/dl POC Creatinine (0.6-1.3) mg/dl Est Cr Clr Drug Dosing ml/min Est GFR ( Amer) ml/min Est GFR (Non-Af Amer) ml/min BUN/Creatinine Ratio (10-20) Glucose (70-99(Fasting)) mg/dl POC Glucose (other) (70-99) mg/dl Calcium (8.5-10.1) mg/dl POC Ioniz Calcium Bipin (1.12-1.32) mmol/l Total Bilirubin (0.2-1.0) mg/dl AST (13-39) U/L ALT (7-52) U/L Alkaline Phosphatase (34-104) U/L Troponin I High Sens 613.9 H* D (0-20) pg/ml Total Protein (6.0-8.3) gm/dl Albumin (3.4-5.0) gm/dl Globulin (2.5-4.0) gm/dl Albumin/Globulin Ratio (0.9-2) Lipase (11-82) U/L Urine Color Urine Appearance (Clear) Urine pH (4.5-7.5) Ur Specific [place] (1.000-1.030) Urine Protein (Negative) Urine Glucose (UA) (Negative) Urine Ketones (Negative) Urine Blood (Negative) Urine Nitrite (Negative) Urine Bilirubin (Negative) Urine Urobilinogen (Negative) Ur Leukocyte Esterase (Negative) SARS-CoV-2, RNA, NAAT (NEGATIVE) Administered Medications Insulin Aspart (Insulin Aspart Per Unit) 0 units SC ACHS ASIM Stop: 02/18/23 18:37 Last Admin: 01/19/23 19:32 Dose: Not Given Documented By: LENS FABRICATING MACHINE TENDER Imaging Data Radiologist's Impression: Chest X-Ray 01/19/23 14:38 SINGLE VIEW CHEST CLINICAL HISTORY: Atypical chest pain FINDINGS: An AP, portable, upright chest radiograph is compared to study dated 07/23/2021 and correlated with chest CT dated 01/08/2023. The examination is degraded by portable technique and patient rotation. There are calcified mediastinal and hilar lymph nodes. The heart is enlarged and noting atherosclerotic calcification of the thoracic aorta. The pulmonary vasculature is noncongested congested. Chronic interstitial thickening is similar to previous. There are numerous calcified granulomas. Scarring/atelectasis is seen at the lung bases. No airspace consolidation or large pleural effusion is identified. No pneumothorax is seen. The skeletal structures are osteopenic. There is a subacute fracture of the medial right clavicle. Arthritic change is noted in the shoulders. IMPRESSION: 1. Cardiomegaly with no acute cardiopulmonary abnormality. 2. A subacute right clavicular fracture is again noted. ACT 112: Negative or not required by law. Electronically signed by: Pierce Pacheco M.D. 01/19/2023 3:22 PM Discharge Plan Visit Data Chief Complaint: Chest Pain ED Provider: Greg Hawthorne Discharge Problem: Atypical chest pain, Elevated troponin, CKD (chronic kidney disease), Anemia Patient Disposition: Admitted As Inpatient Discharge Instructions Interventions: ED Discharge Assessment Last Done: 01/19/23 18:03
[2023-01-19 13:48] LABS: iSTAT Creatinine 4.5 mg/dl (0.6-1.3); iSTAT Hemoglobin 11.2 g/dl (14.0-18.0); iSTAT Ionized Calcium 1.18 mmol/l (1.12-1.32)
[2023-01-19 14:53] LABS: Basophils # (auto) 0.04 K/uL (0-0.2); Basophils % (auto) 0.6 %; Eosinophils # (auto) 0.34 K/uL (0-0.50); Eosinophils % (auto) 5.2 %; Hematocrit (blood only) 32.1 % (42.0-52.0); Hemoglobin 10.5 g/dl (14.0-18.0); Immature Granulocytes # (auto) 0.05 K/uL (0.01-0.20); Immature Granulocytes % (auto) 0.8 %; Lymphocytes # (auto) 0.78 K/uL (1.2-3.4); Lymphocytes % (auto) 11.9 %; Mean Corpuscular Hemoglobin 30.4 pg (25.0-34.0); Mean Corpuscular Hgb Conc 32.7 g/dL (32.0-36.0); Monocytes # (auto) 0.61 K/uL (0.11-0.59); Monocytes % (auto) 9.3 %; Neutrophils # (auto) 4.76 K/uL (1.40-6.50); Neutrophils % (auto) 72.2 %; Platelet Count 122 K/uL (130-400); RDW Coefficient of Variation 16.6 % (11.5-14.5); RDW Standard Deviation 55.6 fL (36.4-46.3); Red Blood Count 3.45 M/uL (4.70-6.10); White Blood Count 6.58 K/ul (4.8-10.8)
[2023-01-19 15:06] LABS: Albumin Globulin Ratio 1.7 (0.9-2); Albumin Level 4.3 gm/dl (3.4-5.0); BUN Creatinine Ratio 22.3 (10-20); Bilirubin,Total 1.1 mg/dl (0.2-1.0); Calcium 10.6 mg/dl (8.5-10.1); Creatinine Clr Calc Pharmacy 16.5 ml/min; Est GFR (African American) 15.1 ml/min; Globulin 2.6 gm/dl (2.5-4.0); Potassium 4.1 mmol/L (3.5-5.1); Total Protein 6.9 gm/dl (6.0-8.3)
[2023-01-19 15:17] LABS: Troponin I High Sensitivity 290.6 pg/ml (0-20)
--- NOTE | 2023-01-19 15:24 | XRay Report ---
SINGLE VIEW CHEST CLINICAL HISTORY: Atypical chest pain FINDINGS: An AP, portable, upright chest radiograph is compared to study dated 07/23/2021 and correlat ed with chest CT dated 01/08/2023. The examination is degraded by portable technique and patient rotati on. There are calcified mediastinal and hilar lymph nodes. The heart is enlarged and noting atheroscl erotic calcification of the thoracic aorta. The pulmonary vasculature is noncongested congested. Pediatric Immunologist skyler interstitial thickening is similar to previous. There are numerous calcified granulomas. Scarring /atelectasis is seen at the lung bases. No airspace consolidation or large pleural effusion is identi fied. No pneumothorax is seen. The skeletal structures are osteopenic. There is a subacute fracture o f the medial right clavicle. Arthritic change is noted in the shoulders. IMPRESSION: 1. Cardiomegaly with no acute cardiopulmonary abnormality. 2. A subacute right clavicular fracture is again noted. ACT 112: Negative or not required by law. Electronically signed by: Pierce Pacheco M.D. 01/19/2023 3:22 PM
[2023-01-19 15:27] LABS: INR 2.3 (0.9-1.1); Partial Thromboplastin Ratio 1.5
[2023-01-19] MEDS ORDERED: NITROGLYCERIN SL 0.4 MG/TAB TAB SL PRN (15:34)
--- NOTE | 2023-01-19 16:01 | History & Physical Report ---
Date of Service January 19, 2023 Assessment & Plan (1) Chest pain: (2) Elevated troponin: (3) Atrial fibrillation: (4) CKD (chronic kidney disease): (5) Type 2 diabetes mellitus: (6) Hypertension: Plan This is an 82-year-old male who has a significant past medical history of atrial fibrillation on warfarin therapy, HTN, chronic HFpEF, CKD stage V not on chronic dialysis, Renal Osteodystrophy, CAD, ABRAN, T2DM, secondary renal hyperparathyroidism, diabetic neuropathy, hypertriglyceridemia, hypothyroidism, COPD, chronic thrombocytopenia, BENI, gouty arthropathy who presents to ED secondary to chest pain x 1.5hrs. Pt presents with Substernal chest tightness associated with shortness of breath.This is been off and on for the past 1 week. Of significance patient did sustain a fall approximately 10 days ago with associated right clavicular fracture. During my examination chest pain has resolved.It was not reproduced but he does have tenderness in the right clavicular region. Initial troponin elevated in 200s, repeat 2 hours later 613. He is fully anticoagulated on warfarin with INR of 2.3. Chest x-ray negative for acute abnormality and EKG without ST or T wave change in rate controlled A-fib. Atypical Chest Pain Elevated troponin Atrial Fibrillation HTN Admit to telemetry Cycle troponin Obtain echocardiogram, last June 2020 which revealed EF 55%, mild AR, TR, left atrial margin pulmonary hypertension Consult cardiology Continue current medical regiment of warfarin, Imdur, hydralazine, metoprolol and torsemide daily INR CKD stage V Patient with patent left upper extremity AV fistula Follows [facility] nephrology, not yet ready for hemodialysis Still makes urine Monitor renal function closely Patient not a candidate for Zaroxolyn or Aldactone due to history of severe hyponatremia T2DM Hold glipizide NovoLog per protocol Obtain A1c in a.m., last 6.8 on 07/29/2022 ABRAN not on CPAP Chronic anemia History of iron deficiency, likely component of anemia of renal disease Chronic thrombocytopenia Platelets stable, monitor Occipital laceration from previous fall [place] intact, wound healed Will instruct ER staff to remove kayla Subacute R clavicular fx continue NWB, sling Bilateral lower extremity venous stasis Consult wound care due to lower extremity wounds from fall DVT ppx: Warfarin Dispo: PCU, ACS rule out PCP: Calvin Patient was seen and examined in collaboration with A total of 75 minutes were spent with greater than 50% of that time face to face with the patient, personally reviewing all current laboratories, imaging studies, past medication reconciliation, outpatient chart review, and discussion with specialists to collaborate care for the patient with attending. Please see attending documentation for corrections and/or additions. History of Present Illness Chief Complaint: Chest pain x 1.5hrs Primary Care Provider: Suman Simpson MD This is an 82-year-old male who has a significant past medical history of atrial fibrillation on warfarin therapy, HTN, chronic HFpEF, CKD stage V not on chronic dialysis, Renal Osteodystrophy, CAD, ABRAN, T2DM, secondary renal hyperparathyroidism, diabetic neuropathy, hypertriglyceridemia, hypothyroidism, COPD, chronic thrombocytopenia, BENI, gouty arthropathy who presents to ED secondary to chest pain x 1.5hrs. Of significance patient sustained a fall approximately 10 days ago down a flight of stairs. He presented to the ED that evening on 01/08/2023 and was found to have a right clavicle fracture as well as a laceration to back of head. This was cleansed and closed with 4 kayla. He now reports for approximately the past week he has experienced 3-4 episodes of chest tightness. Initially chest tightness to be substernal lasted minutes and go away. However last night when he was lying in recliner he developed chest tightness and also experienced difficulty breathing. This again lasted several minutes and resolved on its own. Today when he was sitting at the table at approximately 1130 it came on abruptly again. He rated as an 8 out of 10, nonradiating, nothing made it better or worse and was again associated with difficulty breathing. This time pain was much worse and lasted approximately 2 to 3 hours. He then opted to present to ED. He states the chest tightness feels different than his right clavicle fracture. He denies any prior history of heart disease requiring intervention. He denies any recent illness, fever, chills, sweats, Lightheadedness, dizziness, URI symptoms, hemoptysis, nausea, vomiting, abdominal pain, diarrhea. He does still make urine and does admit to urinary urgency as well as dysuria. He does have BPH and attributes it to this. and daughter at bedside do state that patient complained of being nauseated overnight last evening. In ED patient made hemodynamically stable. He was in rate controlled atrial fibrillation which is chronic for patient. His H&H are stable at 10.5 and 32.1. BUN/creatinine stable at 90 and 4.03. Initial troponin elevated at 200 and repeat in 2 hours was 613.9. Patient is currently chest pain-free. He is anticoagulated on warfarin and INR is therapeutic at 2.3. He did not receive any nitroglycerin in ED. EKG revealed A-fib without significant ST or T wave change. Pt came via EMS and was given 325mg ASA in route. His last dose of coumadin was this morning. Allergies Allergy/AdvReac Type Severity Reaction Status Date / Time metolazone AdvReac Severe SEVERE Verified 01/19/23 15:53 HYPONATREMIA morphine AdvReac Intermediate Hallucinati Verified 01/19/23 15:53 ons oxycodone AdvReac Intermediate Hallucinati Verified 01/19/23 15:53 ons Penicillins AdvReac Intermediate Hallucinati Verified 01/19/23 15:53 ons Home Medications Medication Instructions Recorded Confirmed Type allopurinol 300 mg tablet 300 mg PO QAM 07/23/21 01/19/23 History amlodipine 2.5 mg tablet 2.5 mg PO QAM 07/23/21 01/19/23 History ascorbic acid (vitamin C) 500 mg 500 mg PO QAM 07/23/21 01/19/23 History tablet (Vitamin C) gabapentin 100 mg capsule 100 mg PO TID 07/23/21 01/19/23 History glipizide 5 mg tablet 5 mg PO BID 07/23/21 01/19/23 History hydralazine 100 mg tablet 100 mg PO BID 07/23/21 01/19/23 History isosorbide dinitrate 20 mg tablet 20 mg PO BID 07/23/21 01/19/23 History levothyroxine 88 mcg tablet 88 mcg PO DAILYBB 07/23/21 01/19/23 History metoprolol succinate 100 mg 100 mg PO BID 07/23/21 01/19/23 History tablet,extended release 24 hr multivitamin 1 tab PO QAM 07/23/21 01/19/23 History pantoprazole 40 mg tablet,delayed 40 mg PO DAILYBB 07/23/21 01/19/23 History release tamsulosin 0.4 mg capsule 0.4 mg PO QAM 07/23/21 01/19/23 History warfarin 2.5 mg tablet 2.5 mg PO SUTUWETHSA@1600 07/23/21 01/19/23 History torsemide 100 mg tablet See Rx Instructions .Route .COMPLEX 09/12/21 01/19/23 History bisacodyl 5 mg tablet 5 - 10 mg PO DAILY PRN Constipation 01/19/23 01/19/23 History vitamin E 268 mg (400 unit) capsule 268 mg PO DAILY 01/19/23 01/19/23 History warfarin 2.5 mg tablet (Jantoven) 5 mg PO MOFR@1600 01/19/23 01/19/23 History Past Med/Surg History Medical History (Updated 01/19/23 @ 17:14 by Esha Ponce PA-C) Anemia Chronic, baseline hgb 11 per chart review Atrial fibrillation Follows with Dr. Lozoya, on warfarin BPH (benign prostatic hyperplasia) Chronic back pain CKD (chronic kidney disease) Stage 5 CKD, follows with Dr. Jaramillo COPD (chronic obstructive pulmonary disease) Deaf Left GERD (gastroesophageal reflux disease) Hyperlipidemia Hypertension Hypothyroidism Thrombocytopenia Chronic, baseline low 100s per chart review Type 2 diabetes mellitus NIDDM Surgical History Fusion of spine Lumbar Fusion of spine Neck History of cardiac cath 2010 > no stents History of carpal tunnel release R/L History of colonoscopy History of repair of rotator cuff Left History of total knee replacement R/L Nausea and vomiting after administration of anesthetic agent Family History Mother Cancer Other Family history non-contributory Social History Smoking Status: Never smoker Second Hand Exposure: Yes ( A CHILD, AT WORK); Hx Alcohol Use: No Hx Substance Use: No Preferred Language: Indonesian Communication Ability: Effective Senior Hr Business Partner Required: No Beliefs That Will Affect Care: None marital status: Current Living Situation: Spouse Other Information That Helps Us Care for You: No Feels Safe at Home: Yes Safety Concerns: Feels Safe At This Time Assistive Devices: Cane Review of Systems Review of Systems: All systems reviewed & are unremarkable except as noted in HPI & below Physical Exam Physical Exam: Constitutional: Elderly M, appears chronically ill, WD/WN, vitals as above, NAD, sitting up in bed, pleasant, conversing easily Head: Normocephalic, Atraumatic, + 4 kayla intact in occiput, wound appears healed and kayla will be removed Eyes: PERRL, conjunctivae normal, anicteric sclerae ENMT: external ear and nose normal, oropharynx normal Neck: trachea midline, no thyromegaly normal visual inspection Respiratory: normal respiratory effort, lungs clear to auscultation, no wheeze, rales, rhonchi. Normal insp/exp effort, no accessory muscle use Cardiovascular: IRR/IRR, no murmur, b/l venous stasis change, LUE AV fistula Vessels: no JVD or carotid bruit Chest: normal inspection of chest ,+ ecchymosis to R ACW in clavicular region, tender to palpation, chest pain not reproduced Abdomen: normal bowel sounds, soft, nontender, no hepatosplenomegaly Musculoskeletal: no cyanosis or clubbing,AROM x 4 Skin: no rashes, warm and dry normal turgor Neurologic: PERRL, EOMI, accommodation nl, no face palsy, no dysarthria CN's II-XI intact bilaterally and moves all extremities Psychiatric: A+Ox3, euthymic affect Lymphatic: no cervical or axillary lymphadenopathy : deferred Results & Data Results & Data ([facility]) Vital Signs (Past 12 Hours) Vital Signs Temp Pulse Pulse Resp BP BP Pulse Ox 01/19/23 15:29 74 16 123/73 99 01/19/23 15:29 74 16 99 01/19/23 14:00 78 15 124/70 01/19/23 13:00 85 14 133/74 100 01/19/23 12:39 36.6 C 16 95 01/19/23 12:39 36.7 C 75 18 133/75 100 01/19/23 12:59 90 O2 Del Method 01/19/23 15:29 Room Air 01/19/23 15:29 Room Air 01/19/23 14:00 01/19/23 13:00 01/19/23 12:39 01/19/23 12:39 01/19/23 12:59 Diagnostic Findings Chest X-Ray 01/19/23 14:38 SINGLE VIEW CHEST CLINICAL HISTORY: Atypical chest pain FINDINGS: An AP, portable, upright chest radiograph is compared to study dated 07/23/2021 and correlated with chest CT dated 01/08/2023. The examination is degraded by portable technique and patient rotation. There are calcified mediastinal and hilar lymph nodes. The heart is enlarged and noting atherosclerotic calcification of the thoracic aorta. The pulmonary vasculature is noncongested congested. Chronic interstitial thickening is similar to previous. There are numerous calcified granulomas. Scarring/atelectasis is seen at the lung bases. No airspace consolidation or large pleural effusion is identified. No pneumothorax is seen. The skeletal structures are osteopenic. There is a subacute fracture of the medial right clavicle. Arthritic change is noted in the shoulders. IMPRESSION: 1. Cardiomegaly with no acute cardiopulmonary abnormality. 2. A subacute right clavicular fracture is again noted. ACT 112: Negative or not required by law. Electronically signed by: Pierce Pacheco M.D. 01/19/2023 3:22 PM ECG Rate (beats per minute): 85 Rhythm: atrial fibrillation Findings: + PVC COVID-19 Results Results COVID-19 Adm Lab Results: RBC 3.45 M/uL (4.70-6.10) L 01/19/23 WBC 6.58 K/ul (4.8-10.8) 01/19/23 Hgb 10.5 g/dl (14.0-18.0) L 01/19/23 Hct 32.1 % (42.0-52.0) L 01/19/23 Plt Count 122 K/uL (130-400) L 01/19/23 Neutrophils (%) (Auto) 72.2 % 01/19/23 Lymphocytes (%) (Auto) 11.9 % 01/19/23 Monocytes # (Auto) 0.61 K/uL (0.11-0.59) H 01/19/23 Eosinophils # (Auto) 0.34 K/uL (0-0.50) 01/19/23 Immature Granulocyte % (Auto) 0.8 % 01/19/23 Neutrophils # (Auto) 4.76 K/uL (1.40-6.50) 01/19/23 Lymphocytes # (Auto) 0.78 K/uL (1.2-3.4) L 01/19/23 Monocytes # (Auto) 0.61 K/uL (0.11-0.59) H 01/19/23 Eosinophils # (Auto) 0.34 K/uL (0-0.50) 01/19/23 Basophils # (Auto) 0.04 K/uL (0-0.2) 01/19/23 Immature Granulocyte # (Auto) 0.05 K/uL (0.01-0.20) 3 Na 133 mmol/L (136-145) L 01/19/23 K 4.1 mmol/L (3.5-5.1) 01/19/23 Cl 96 mmol/L (98-107) L 01/19/23 CO2 24 mmol/L (21-32) 01/19/23 Anion Gap 13 (3-11) H 01/19/23 BUN 90 mg/dl (6-23) H 01/19/23 Creatinine 4.03 mg/dl (0.6-1.4) H 01/19/23 BUN/Creatinine Ratio 22.3 (10-20) H 01/19/23 Glucose Level 109 mg/dl (70-99(Fasting)) H 01/19/23 Ca 10.6 mg/dl (8.5-10.1) H 01/19/23 Total Bilirubin 1.1 mg/dl (0.2-1.0) H 01/19/23 AST/SGOT 30 U/L (13-39) 01/19/23 ALT/SGPT 23 U/L (7-52) 01/19/23 Alkaline Phosphatase 68 U/L (34-104) 01/19/23 Total Protein 6.9 gm/dl (6.0-8.3) 01/19/23 Albumin 4.3 gm/dl (3.4-5.0) 01/19/23 Globulin 2.6 gm/dl (2.5-4.0) 01/19/23 Albumin/Globulin Ratio 1.7 (0.9-2) 01/19/23 PTT 41.0 Seconds (21.0-31.0) H 01/19/23 INR 2.3 (0.9-1.1) H 01/19/23 SARS-CoV-2, RNA, NAAT NEGATIVE (NEGATIVE) 01/19/23 Chest X-Ray 01/19/23 Code Status & VTE Plan Code Status FULL CODE Supervising Physician Co-Signing Physician Notes Patient seen and examined. Reports intermittent chest pain since after recent fall with right collar fracture. Reports chest pain occurs at rest, lasts a few minutes and goes away. However today's episode which was substernal lasted for a while associated with shortness of breath necessitating presentation to the ER. Denied any nausea, vomiting. Currently chest pain-free. Reports he has reflux but this is different from his reflux symptoms and completely different from the right collarbone fracture pain. Exam notable for elderly man in no distress, bruise over right collar bone, no central chest wall tenderness on palpation. Lungs clear to auscultation. Ankle edema bilaterally with bilateral LE wrapping (for edema) Patient had orthopnea with laying down for exam. Healing wound over occipital region (area of previous laceration). Bruises over both rose reported to be from the fall per patient and daughter Labs notable for hemoglobin of 10.5, platelet of 122, INR of 2.3 [on warfarin], sodium of 133, creatinine of 4.03, troponin of [id number] Chest x-ray showed cardiomegaly without any acute abnormality except for subacute right clavicular fracture noted from previous ER visit. EKG noted atrial fibrillation with PVC Chest pain Atypical Trend trop Currently on warfarin, therapeutic INR Got ASA in ER Get Echo Cards c/s NPO pmn Cr at baseline Get PT/OT eval Patient reports he is DNR Other plans as detailed by Esha Ponce PA-C
--- NOTE | 2023-01-19 17:17 | Electrocardiogram Report ---
Test Reason : Blood Pressure : / mmHG Vent. Rate : 085 BPM Atrial Rate : 090 BPM P-R Int : 000 ms QRS Dur : 084 ms QT Int : 398 ms P-R-T Axes : 000 -05 018 degrees QTc Int : 473 ms Poor data quality, interpretation may be adversely affected Atrial fibrillation with aberrant conduction possible Inferior infarct , age undetermined Abnormal ECG When compared with ECG of 19-JAN-2023 12:59, (unconfirmed) Inferior infarct is now Present Confirmed by Dimitri Easton ([id number]) on 01/19/2023 5:17:19 PM Referred By: REFERRED SELF Confirmed By:Eduard Easton
[2023-01-19] MEDS ORDERED: CARBOHYDRATES FOR HYPOGLYCEMIA PO PRN (18:38)
[2023-01-19] MEDS ORDERED: ACETAMINOPHEN 325 MG TAB PO PRN (18:38)
[2023-01-19] MEDS ORDERED: DEXTROSE 50% 50 ML SYRINGE IV PRN (18:38)
[2023-01-19] MEDS ORDERED: ONDANSETRON INJ 2 MG/ML 2 ML VIAL IV PRN (18:38)
[2023-01-19] MEDS ORDERED: GLUCAGON FOR INJ 1 MG VIAL SQ PRN (18:38)
[2023-01-19] MEDS ORDERED: GLUCOSE 40% GEL 15 GM TUBE PO PRN (18:38)
[2023-01-19] MEDS ORDERED: GLUCOSE 10 TAB/TUBE PO PRN (18:38)
[2023-01-19] MEDS ORDERED: POLYETHYLENE (MIRALAX) 17 GM PACK PO PRN (18:38)
[2023-01-19 18:57] LABS: Appearance Urine Clear (Clear); Bilirubin Urine Negative (Negative); Blood Urine Negative (Negative); Color Urine Yellow; Glucose Urine UA Negative (Negative); Ketones Urine Negative (Negative); Leukocyte Esterase Urine Negative (Negative); Nitrite Urine Negative (Negative); Protein Urine Negative (Negative); Specific Gravity Urine 1.007 (1.000-1.030); Urobilinogen Urine Negative (Negative); pH Urine 7.5 (4.5-7.5)
[2023-01-19] MEDS: INSULIN ASPART PER UNIT SC SCH ×2 (19:32→21:47)
[2023-01-19] MEDS ORDERED: TORSEMIDE 100 MG TAB PO SCH (21:00)
[2023-01-19] MEDS: GABAPENTIN 100 MG CAP PO SCH (21:45)
[2023-01-19] MEDS: METOPROLOL SUCC 50MG EXT REL TAB PO SCH (21:45)
[2023-01-19] MEDS: hydrALAZINE TAB 50 MG TAB PO SCH (21:46)
[2023-01-20 06:26] LABS: BUN Creatinine Ratio 21.8 (10-20); Calcium 10.3 mg/dl (8.5-10.1); Creatinine Clr Calc Pharmacy 16.1 ml/min; Est GFR (African American) 15.1 ml/min; Magnesium 2.4 mg/dl (1.7-2.4); Phosphorus 3.9 mg/dl (2.5-4.9); Potassium 4.2 mmol/L (3.5-5.1)
[2023-01-20] MEDS ORDERED: LEVOTHYROXINE SODIUM 88 MCG TABLET PO SCH (06:30)
[2023-01-20] MEDS ORDERED: PANTOprazole 40 MG TAB PO SCH (06:30)
[2023-01-20 06:37] LABS: Hemoglobin 10.8 g/dl (14.0-18.0); INR 2.2 (0.9-1.1); Mean Corpuscular Hemoglobin 30.5 pg (25.0-34.0); Mean Corpuscular Hgb Conc 32.7 g/dL (32.0-36.0); Mean Corpuscular Volume 93.2 fL (80.0-100.0); Mean Platelet Volume 11.8 fL (9.4-12.4); Platelet Count 120 K/uL (130-400); Prothrombin Time 22.7 Seconds (9.0-12.0); RDW Coefficient of Variation 16.9 % (11.5-14.5); RDW Standard Deviation 56.5 fL (36.4-46.3); Red Blood Count 3.54 M/uL (4.70-6.10); White Blood Count 8.35 K/ul (4.8-10.8)
[2023-01-20 08:10] LABS: Estimated Average Glucose 146 mg/dl; Hemoglobin A1C 6.7 % (4.5-5.6)
[2023-01-20] MEDS: METOPROLOL SUCC 50MG EXT REL TAB PO SCH (08:24)
[2023-01-20] MEDS: hydrALAZINE TAB 50 MG TAB PO SCH (08:24)
[2023-01-20] MEDS: ISOSORBIDE DINITRATE 20 MG TAB PO SCH ×2 (08:25→12:10)
[2023-01-20] MEDS: GABAPENTIN 100 MG CAP PO SCH ×2 (08:25→14:39)
[2023-01-20] MEDS: INSULIN ASPART PER UNIT SC SCH ×2 (08:26→12:08)
--- NOTE | 2023-01-20 08:45 | Cardiology Consultation ---
Date of Consultation January 20, 2023 Assessment & Plan (1) Atypical chest pain: (2) Elevated troponin: (3) CKD (chronic kidney disease): (4) Hypertension: (5) Type 2 diabetes mellitus: (6) CKD (chronic kidney disease): (7) Atrial fibrillation: (8) Closed fracture of right clavicle: (9) Fall down stairs: Plan Musculoskeletal chest pain secondary to left-sided overcompensation given recent right clavicular fracture Echocardiogram without wall motion abnormality Troponin is easily explained by his chronic kidney disease and does not believe this represents acute coronary syndrome No further cardiac test intervention is necessary at this time. Okay to DC to home from a cardiac standpoint. No medication changes at this time. History of Present Illness Reason for Consultation: Chest pain Requesting Physician: [facility]harm[facility] hospitalist group Attending Physician: Judith Franklin MD History of Present Illness It was my pleasure to see Mr. Rabago in cardiac consultation today January 20, 2023. He is a very pleasant 82-year-old gentleman who presented to [facility] emergency department on 01/19/2023 with complaints of left-sided chest pain. The patient recently had a serious mechanical fall down 12 wooden steps during which she sustained multiple contusions, abrasions and a fractured right clavicle. Since this event, his notes that he has been using the left side of his body much more than normal particularly when trying to get up from a seated position. On the day of presentation, the patient states he was getting up from a seated position and he suddenly developed left- sided chest pain. He described it as an intense, sharp and stabbing sensation with associated shortness of breath. He states that trying to take a deep breath was very painful. Upon presentation emergency department initial tropo bobby was elevated but patient with stage V chronic kidney disease and EKG without ischemic changes. Currently the patient is pain-free. Allergies Allergy/AdvReac Type Severity Reaction Status Date / Time metolazone AdvReac Severe SEVERE Verified 01/19/23 15:53 HYPONATREMIA morphine AdvReac Intermediate Hallucinati Verified 01/19/23 15:53 ons oxycodone AdvReac Intermediate Hallucinati Verified 01/19/23 15:53 ons Penicillins AdvReac Intermediate Hallucinati Verified 01/19/23 15:53 ons Home Medications Medication Instructions Recorded Confirmed Type allopurinol 300 mg tablet 300 mg PO QAM 07/23/21 01/19/23 History amlodipine 2.5 mg tablet 2.5 mg PO QAM 07/23/21 01/19/23 History ascorbic acid (vitamin C) 500 mg 500 mg PO QAM 07/23/21 01/19/23 History tablet (Vitamin C) gabapentin 100 mg capsule 100 mg PO TID 07/23/21 01/19/23 History glipizide 5 mg tablet 5 mg PO BID 07/23/21 01/19/23 History hydralazine 100 mg tablet 100 mg PO BID 07/23/21 01/19/23 History isosorbide dinitrate 20 mg tablet 20 mg PO BID 07/23/21 01/19/23 History levothyroxine 88 mcg tablet 88 mcg PO DAILYBB 07/23/21 01/19/23 History metoprolol succinate 100 mg 100 mg PO BID 07/23/21 01/19/23 History tablet,extended release 24 hr multivitamin 1 tab PO QAM 07/23/21 01/19/23 History pantoprazole 40 mg tablet,delayed 40 mg PO DAILYBB 07/23/21 01/19/23 History release tamsulosin 0.4 mg capsule 0.4 mg PO QAM 07/23/21 01/19/23 History warfarin 2.5 mg tablet 2.5 mg PO SUTUWETHSA@1600 07/23/21 01/19/23 History torsemide 100 mg tablet See Rx Instructions .Route .COMPLEX 09/12/21 01/19/23 History bisacodyl 5 mg tablet 5 - 10 mg PO DAILY PRN Constipation 01/19/23 01/19/23 History vitamin E 268 mg (400 unit) capsule 268 mg PO DAILY 01/19/23 01/19/23 History warfarin 2.5 mg tablet (Jantoven) 5 mg PO MOFR@1600 01/19/23 01/19/23 History Patient History Medical History Anemia Chronic, baseline hgb 11 per chart review Atrial fibrillation Follows with Dr. Lozoya on warfarin BPH (benign prostatic hyperplasia) Chronic back pain CKD (chronic kidney disease) Stage 5 CKD, follows with Dr. Jaramillo COPD (chronic obstructive pulmonary disease) Deaf Left GERD (gastroesophageal reflux disease) Hyperlipidemia Hypertension Hypothyroidism Thrombocytopenia Chronic, baseline low 100s per chart review Type 2 diabetes mellitus NIDDM Surgical History Fusion of spine Lumbar Fusion of spine Neck History of cardiac cath 2010 > no stents History of carpal tunnel release R/L History of colonoscopy History of repair of rotator cuff Left History of total knee replacement R/L Nausea and vomiting after administration of anesthetic agent Family History Mother Cancer Other Family history non-contributory Social History Smoking Status: Never smoker Second Hand Exposure: Yes ( A CHILD, AT WORK); Hx Alcohol Use: No Hx Substance Use: No Preferred Language: Divehi Communication Ability: Effective Product Info Specialist Required: No Beliefs That Will Affect Care: None marital status: Current Living Situation: Spouse Other Information That Helps Us Care for You: No Feels Safe at Home: Yes Safety Concerns: Feels Safe At This Time Assistive Devices: Cane Review of Systems Review of Systems: All systems reviewed & are unremarkable except as noted in HPI & below Physical Exam Physical Exam: General: Awake, alert and oriented x 3. No acute distress. HEENT: Normocephalic, atraumatic. Pupils equal, round and reactive to light and accommodation. Extraocular muscles are intact. Anicteric sclera. Moist mucous membranes. Neck: No JVD. No bruit. Cardiovascular: irregularly irregular, unable to appreciate murmur, rub or gallop. Pulmonary: Clear to auscultation bilaterally. No rales, rhonchi, or wheezing. Abdomen: Bowel sounds x 4, soft. No rebound, guarding or tenderness. No organomegaly. Extremities: No clubbing, cyanosis or edema. +2 pedal pulses bilaterally. Skin: Warm and dry. Results & Data ([facility]) Vital Signs (Past 12 Hours) Vital Signs Temp Pulse Pulse Resp BP Pulse Ox O2 Del Method 01/20/23 07:52 36.7 C 67 18 134/72 95 Room Air 01/20/23 03:08 37.0 C 75 18 134/68 97 Room Air 01/19/23 21:59 74 01/19/23 22:46 36.7 C 70 18 127/65 98 Room Air 01/19/23 21:42 76 115/70 (3) CKD (chronic kidney disease) Chronic kidney disease stage: unspecified stage Qualified Code(s): N18.9 - Chronic kidney disease, unspecified
[2023-01-20] MEDS ORDERED: amLODIPine BESYLATE 5 MG TAB PO SCH (09:00)
[2023-01-20] MEDS ORDERED: ASCORBIC ACID 500 MG TAB PO SCH (09:00)
[2023-01-20] MEDS ORDERED: TAMSULOSIN HCL 0.4 MG CAP PO SCH (09:00)
[2023-01-20] MEDS ORDERED: allopurinoL 300 MG TAB PO SCH (09:00)
[2023-01-20] MEDS ORDERED: MULTIVITAMIN TAB PO SCH (09:00)
[2023-01-20] MEDS ORDERED: TORSEMIDE 100 MG TAB PO SCH (09:00)
[2023-01-20] MEDS ORDERED: TOCOPHERYL, DL-ALPHA 400 UNITS 180 MG CAP PO SCH (09:00)
--- NOTE | 2023-01-20 10:48 | Electrocardiogram Report ---
Test Reason : Blood Pressure : / mmHG Vent. Rate : 083 BPM Atrial Rate : 394 BPM P-R Int : 000 ms QRS Dur : 092 ms QT Int : 378 ms P-R-T Axes : 000 011 047 degrees QTc Int : 444 ms Atrial fibrillation Low voltage QRS Nonspecific ST abnormality Abnormal ECG When compared with ECG of 19-JAN-2023 13:01, Nonspecific T wave abnormality no longer evident in Inferior leads Confirmed by Dimitri Easton ([id number]) on 01/20/2023 10:48:12 AM Referred By: REFERRED SELF Confirmed By:Eduard Easton
--- NOTE | 2023-01-20 13:07 | Discharge Summary ---
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 Of significance patient sustained a fall approximately 10 days ago down a flight of stairs. He presented to the ED that evening on 01/08/2023 and was found to have a right clavicle fracture as well as a laceration to back of head. This was cleansed and closed with 4 kayla. He now reports for approximately the past week he has experienced 3-4 episodes of chest tightness. Initially chest tightness to be substernal lasted minutes and go away. However last night when he was lying in recliner he developed chest tightness and also experienced difficulty breathing. This again lasted several minutes and resolved on its own. Today when he was sitting at the table at approximately 1130 it came on abruptly again. He rated as an 8 out of 10, nonradiating, nothing made it better or worse and was again associated with difficulty breathing. This time pain was much worse and lasted approximately 2 to 3 hours. He then opted to present to ED. He states the chest tightness feels different than his right clavicle fracture. He denies any prior history of heart disease requiring intervention. He denies any recent illness, fever, chills, sweats, Lightheadedness, dizziness, URI symptoms, hemoptysis, nausea, vomiting, abdominal pain, diarrhea. He does still make urine and does admit to urinary urgency as well as dysuria. He does have BPH and attributes it to this. and daughter at bedside do state that patient complained of being nauseated overnight last evening. In ED patient made hemodynamically stable. He was in rate controlled atrial fibrillation which is chronic for patient. His H&H are stable at 10.5 and 32.1. BUN/creatinine stable at 90 and 4.03. Initial troponin elevated at 200 and repeat in 2 hours was 613.9. Patient is currently chest pain-free. He is anticoagulated on warfarin and INR is therapeutic at 2.3. He did not receive any nitroglycerin in ED. EKG revealed A-fib without significant ST or T wave change. Pt came via EMS and was given 325mg ASA in route. His last dose of coumadin was this morning. Admission Exam Per Admitting Provider Constitutional: Elderly M, appears chronically ill, WD/WN, vitals as above, NAD, sitting up in bed, pleasant, conversing easily Head: Normocephalic, Atraumatic, + 4 kayla intact in occiput, wound appears healed and kayla will be removed Eyes: PERRL, conjunctivae normal, anicteric sclerae ENMT: external ear and nose normal, oropharynx normal Neck: trachea midline, no thyromegaly normal visual inspection Respiratory: normal respiratory effort, lungs clear to auscultation, no wheeze, rales, rhonchi. Normal insp/exp effort, no accessory muscle use Cardiovascular: IRR/IRR, no murmur, b/l venous stasis change, LUE AV fistula Vessels: no JVD or carotid bruit Chest: normal inspection of chest ,+ ecchymosis to R ACW in clavicular region, tender to palpation, chest pain not reproduced Abdomen: normal bowel sounds, soft, nontender, no hepatosplenomegaly Musculoskeletal: no cyanosis or clubbing,AROM x 4 Skin: no rashes, warm and dry normal turgor Neurologic: PERRL, EOMI, accommodation nl, no face palsy, no dysarthria CN's II-XI intact bilaterally and moves all extremities Psychiatric: A+Ox3, euthymic affect Lymphatic: no cervical or axillary lymphadenopathy : deferred Principal Dx & Hospital Course #1 = Principal Diagnosis (1) Chest pain: (2) Elevated troponin: (3) Atrial fibrillation: (4) CKD (chronic kidney disease): (5) Type 2 diabetes mellitus: (6) Hypertension: Plan 82-year-old male who has a significant past medical history of atrial fibrillation on warfarin therapy, HTN, chronic HFpEF, CKD stage V not on chronic dialysis, Renal Osteodystrophy, CAD, ABRAN, T2DM, secondary renal hyperparathyroidism, diabetic neuropathy, hypertriglyceridemia, hypothyroidism, COPD, chronic thrombocytopenia, BENI, gouty arthropathy who presents to ED secondary to chest pain x 1.5hrs. Pt presents with Substernal chest tightness associated with shortness of breath.This is been off and on for the past 1 week. Of significance patient did sustain a fall approximately 10 days ago with associated right clavicular fracture. During my examination chest pain has resolved.It was not reproduced but he does have tenderness in the right clavicular region. Initial troponin elevated in 200s, repeat 2 hours later 613. He is fully anticoagulated on warfarin with INR of 2.3. Chest x-ray negative for acute abnormality and EKG without ST or T wave change in rate controlled A-fib. 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 Elevated trop thought to be due to his CKD5 ACS rule out Chest pain likely MSK Continue current medical regiment of warfarin, Imdur, hydralazine, metoprolol and torsemide daily INR CKD stage V Patient with patent left upper extremity AV fistula Follows [facility] nephrology, not yet ready for hemodialysis Still makes urine Monitor renal function closely Patient not a candidate for Zaroxolyn or Aldactone due to history of severe hyponatremia DM2 Continue home glipizide HbA1c 6.7 ABRAN not on CPAP Chronic anemia History of iron deficiency, likely component of anemia of renal disease Chronic thrombocytopenia Platelets stable, monitor Occipital laceration from previous fall Subacute R clavicular fx Continue sling. NWB PT evaluated. REhab recommended. Patient declined CM arranged HH Discharge Exam Constitutional + well hydrated; no acute distress Eyes PERRL, conjunctivae normal, anicteric sclerae ENMT external ear and nose normal, oropharynx normal Respiratory normal respiratory effort, lungs clear to auscultation Cardiovascular Rate/Rhythm: + irregularly irregular S1 S2 Chest (Breasts) Additional Comments: Bruise over right clavicle Gastrointestinal (Abdomen) normal bowel sounds, soft, nontender, no hepatosplenomegaly Musculoskeletal RUE in sling Bruises over both legs Neurologic PERRL, EOMI, accommodation nl, no face palsy, no dysarthria Psychiatric A+Ox3, euthymic affect Updated Medication List Medication Instructions Recorded Confirmed Type allopurinol 300 mg tablet 300 mg PO QAM 07/23/21 01/19/23 History amlodipine 2.5 mg tablet 2.5 mg PO QAM 07/23/21 01/19/23 History ascorbic acid (vitamin C) 500 mg 500 mg PO QAM 07/23/21 01/19/23 History tablet (Vitamin C) gabapentin 100 mg capsule 100 mg PO TID 07/23/21 01/19/23 History glipizide 5 mg tablet 5 mg PO BID 07/23/21 01/19/23 History hydralazine 100 mg tablet 100 mg PO BID 07/23/21 01/19/23 History isosorbide dinitrate 20 mg tablet 20 mg PO BID 07/23/21 01/19/23 History levothyroxine 88 mcg tablet 88 mcg PO DAILYBB 07/23/21 01/19/23 History metoprolol succinate 100 mg 100 mg PO BID 07/23/21 01/19/23 History tablet,extended release 24 hr multivitamin 1 tab PO QAM 07/23/21 01/19/23 History pantoprazole 40 mg tablet,delayed 40 mg PO DAILYBB 07/23/21 01/19/23 History release tamsulosin 0.4 mg capsule 0.4 mg PO QAM 07/23/21 01/19/23 History warfarin 2.5 mg tablet 2.5 mg PO SUTUWETHSA@1600 07/23/21 01/19/23 History torsemide 100 mg tablet See Rx Instructions .Route .COMPLEX 09/12/21 01/19/23 History bisacodyl 5 mg tablet 5 - 10 mg PO DAILY PRN Constipation 01/19/23 01/19/23 History vitamin E 268 mg (400 unit) capsule 268 mg PO DAILY 01/19/23 01/19/23 History warfarin 2.5 mg tablet (Jantoven) 5 mg PO MOFR@1600 01/19/23 01/19/23 History Hospital Stay Data Consultations 01/19/23 15:34 ED Decision to Admit Stat 01/19/23 18:38 Consult Cardiology Routine Pending Results Patient Have Any Pending Studies at Discharge: No Discharge Instructions Given to Patient (Per Discharging Provider) Mr Trejo. You came to the hospital complaining of chest pain. You were evaluated and monitored overnight. Chest pain has resolved. You are being discharged home. Please ensure follow up with your Primary Doctor It was a pleasure taking care of you Total Time Total Time Spent Total Time Spent (In Minutes): 50 Total Time Includes: Examination of the Patient, Discharge Planning, Medication Reconciliation and Communication With Other Providers
[2023-01-20] MEDS ORDERED: WARFARIN SOD 2.5 MG TAB PO SCH (16:00)
[2023-01-23] MEDS ORDERED: WARFARIN SOD 5 MG TAB PO SCH (16:00)
== END 2023-01-20 14:55 | disposition home health service (06) ==
LOC: ED 12:52 → 2S 12:52

== ENCOUNTER 2024-11-03 11:22 | Inpatient (IN) ==
--- NOTE | 2024-11-03 12:17 | Emergency Department Note ---
Impression & Plan Sepsis, Diabetic foot infection ED Provider Note Diagnosis: Infected diabetic foot wound, sepsis Disposition: Admission CHIEF COMPLAINT: Toe infection HPI: Patient is an 84-year-old male with history of diabetes and previous diabetic foot wounds presenting with circumferential swelling and redness to the fourth digit of the left foot. Patient states symptoms been ongoing for 2 to 3 days time. Patient has discharge from the digit in question. Patient has some erythema to the top of his left foot. Patient denies fevers or chills. Patient seen by primary care physician today and sent over for further evaluation. Patient has not been on antibiotics recently. Patient also has a skin tear to the right anterior rose region. PAST MEDICAL HISTORY: See Below PAST SURGICAL HISTORY: See Below SOCIAL HISTORY: See Below HOME MEDICATIONS: See Below ALLERGIES: See Below VITALS: See Below PHYSICAL EXAMINATION: GENERAL: Well appearing, well nourished, NAD, non-toxic. EYE EXAM: Normal conjunctiva. OROPHARYNX: Moist mucus membranes. Grossly normal dentition. NECK: Supple, LUNGS: Clear to auscultation. Normal chest wall mechanics. HEART: NSR ABDOMEN: Abdomen soft, non-tender, normo-active bowel sounds, no masses, no rebound or guarding BACK: No CVA TTP. SKIN: Left fourth digit lower extremity circumferential swelling and erythema and discharge. Patient has skin tear to the right anterior rose region UPPER EXTREMITIES: Upper extremities are grossly normal LOWER EXTREMITIES: Muscle strength normal, fourth digit left foot circumferential swelling and erythema. Patient has 2+ dorsal pedis pulse intact sensation in the digits that are present NEURO EXAM: A&O x3,, normal speech, moves all 4 extremities PSYCH: Cooperative MEDICAL DECISION MAKING: History obtained from: Patient ER Course: Patient is an 84-year-old male with history of diabetes presenting with complaint of swelling and inflammation of the fourth digit of left foot. Patient has had previous amputation of the second digit of his left foot. Patient went to his primary care physician noticed that there was circumferential swelling and purple to red color change with a wound to the top of the toe. Patient has swelling in this region. Patient had x-ray performed no acute fractures. Patient's CRP and lactate level elevated. Patient's case discussed with ED pharmacist recommended cefepime and vancomycin. Patient given IV fluids due to the elevated lactate. Patient admitted to hospitalist service. Labs (independently interpreted) are significant for: Elevated CRP and lactate Imaging results (independently interpreted): X-ray foot without acute fracture no gas present Medications given: Normal saline, cefepime, vancomycin Consultants: ED pharmacist, hospitalist Triage Nursing notes reviewed and agree them. Vital Signs: reviewed and remarkable for: no significant abnormalities Past Med/Surg History Problem List (Updated 11/03/24 @ 19:26 by Thang Krueger DO) Diabetic foot infection (Acute) Sepsis (Acute) Chronic anemia Toe ulcer Chronic heart failure with preserved ejection fraction (HFpEF) CAD (coronary artery disease) CKD (chronic kidney disease), stage IV Cellulitis of fourth toe, left Rash Diabetic ulcer of toe of right foot (Acute) Acute lower gastrointestinal bleeding (Acute) Symptomatic anemia (Acute) Elevated INR (Acute) ESRD on hemodialysis Anemia Lower GI bleed Status post partial amputation of foot Personal history of diabetic foot ulcer Diabetic peripheral neuropathy associated with type 2 diabetes mellitus Hypothyroidism Hyperlipidemia COPD (chronic obstructive pulmonary disease) Anemia Chronic Per PCP records- presumed anemia due to CKD- baseline Hgb usually around 10.5 Chronic venous insufficiency (Chronic) Hypertension Type 2 diabetes mellitus NIDDM CKD (chronic kidney disease) Stage 5CKD, follows with Dr. Jaramillo>"he thought it was stage 4" "ESRD... not on dialysis" per PCP records Atrial fibrillation On warfarin Medical History History of acute prostatitis Rheumatoid arthritis Per PCP records ABRAN (obstructive sleep apnea) Per PCP records A-V fistula lt side; did not start dialysis yet Thrombocytopenia Chronic, baseline low 100s per chart review Deaf Left Chronic back pain GERD (gastroesophageal reflux disease) BPH (benign prostatic hyperplasia) Surgical History History of repair of rotator cuff Left History of carpal tunnel release R/L History of total knee replacement R/L Fusion of spine Neck Fusion of spine Lumbar History of colonoscopy History of cardiac cath 2010 > no stents >[facility] Nausea and vomiting after administration of anesthetic agent Family History Mother Cancer Other Family history non-contributory Social History Smoking Status: Never smoker Second Hand Exposure: Yes (hx at work); Do You Dip or Chew Tobacco: No; Hx Alcohol Use: No Hx Substance Use: No Preferred Language: Greek Communication Ability: Effective 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 Beliefs That Will Affect Care: None marital status: Current Living Situation: Spouse Feels Safe at Home: Yes Safety Concerns: Feels Safe At This Time Assistive Devices: Cane, Hearing Aid - Left and Oxygen - at Night Assistive Devices Comment: Cane with pt Allergies Allergies Allergy/AdvReac Type Severity Reaction Status Date / Time codeine Allergy Confusion Verified 10/28/23 09:52 metolazone AdvReac Severe SEVERE Verified 10/28/23 09:52 HYPONATREMIA morphine AdvReac Intermediate Hallucinati Verified 10/28/23 09:52 ons oxycodone AdvReac Intermediate Hallucinati Verified 10/28/23 09:52 ons Penicillins AdvReac Intermediate Hallucinati Verified 10/28/23 09:52 ons Home Meds Home Medications Medication Instructions Recorded Confirmed ascorbic acid (vitamin C) 500 mg 500 mg PO QAM 07/23/21 11/03/24 tablet (Vitamin C) gabapentin 100 mg capsule 100 mg PO BID 07/23/21 11/03/24 glipizide 5 mg tablet 5 mg PO DAILY 07/23/21 11/03/24 isosorbide dinitrate 20 mg tablet 20 mg PO BID 07/23/21 11/03/24 levothyroxine 88 mcg tablet 88 mcg PO QAM 07/23/21 11/03/24 metoprolol succinate 100 mg 100 mg PO BID 07/23/21 11/03/24 tablet,extended release 24 hr multivitamin 1 tab PO QAM 07/23/21 11/03/24 pantoprazole 40 mg tablet,delayed 40 mg PO QAM 07/23/21 11/03/24 release tamsulosin 0.4 mg capsule 0.4 mg PO QAM 07/23/21 11/03/24 warfarin 2.5 mg tablet 2.5 mg PO UD 07/23/21 11/03/24 torsemide 100 mg tablet 200 mg PO BID 09/12/21 11/03/24 fluticasone furoate 100 1 inh inhalation DAILY 09/02/23 11/03/24 mcg-vilanterol 25 mcg/dose inhalation powder (Breo Ellipta) albuterol sulfate 0.63 mg/3 mL 0.63 mg inhalation Q6H PRN 11/03/24 11/03/24 solution for nebulization Shortness Of Breath Or Wheezing allopurinol 100 mg tablet 50 mg PO DAILY 11/03/24 11/03/24 cholecalciferol (vitamin D3) 25 25 mcg PO DAILY 11/03/24 11/03/24 mcg (1,000 unit) tablet losartan 25 mg tablet 25 mg PO DAILY 11/03/24 11/03/24 Results & Data (ED) Vital Signs Vital Signs - 24 hr 11/03/24 11:26 11/03/24 11:54 11/03/24 12:00 Temperature 36.8 C Temperature Source Temporal Artery Scan Pulse Rate 78 78 75 Respiratory Rate 18 18 Blood Pressure 179/84 H 137/73 Blood Pressure Mean 115 94 Pulse Oximetry 95 98 Oxygen Delivery Method Room Air Sepsis Recent Fever Within 48 Hours No Sepsis New/Unexplained Change in Mental Status N/A Sepsis Action Taken by Nursing No Action Required 11/03/24 12:30 11/03/24 13:12 Temperature Temperature Source Pulse Rate 76 72 Respiratory Rate 20 17 Blood Pressure 128/76 152/89 H Blood Pressure Mean 92 110 Pulse Oximetry 98 98 Oxygen Delivery Method Room Air Room Air Sepsis Recent Fever Within 48 Hours Sepsis New/Unexplained Change in Mental Status Sepsis Action Taken by Nursing Laboratory Data 11/03/24 12:00 11/03/24 12:00 Lab Results 11/03/24 11/03/24 Range/Units 12:00 12:24 WBC 6.41 (4.8-10.8) K/ul RBC 3.75 L (4.70-6.10) M/uL Hgb 10.5 L (14.0-18.0) g/dl Hct 35.0 L (42.0-52.0) % MCV 93.3 (80.0-100.0) fL MCH 28.0 (25.0-34.0) pg MCHC 30.0 L (32.0-36.0) g/dL RDW Std Deviation 64.4 H (36.4-46.3) fL RDW Coeff of Yanira 19.0 H (11.5-14.5) % Plt Count 107 L (130-400) K/uL MPV 11.3 (9.4-12.4) fL Immature Gran % (Auto) 0.5 % Neut % (Auto) 63.3 % Lymph % (Auto) 13.6 % [place] % (Auto) 6.4 % Eos % (Auto) 14.8 % Baso % (Auto) 1.4 % Neut # (Auto) 4.06 (1.40-6.50) K/uL Lymph # (Auto) 0.87 L (1.20-3.40) K/uL [place] # (Auto) 0.41 (0.11-0.59) K/uL Eos # (Auto) 0.95 H (0.00-0.50) K/uL Baso # (Auto) 0.09 (0.00-0.20) K/uL Immature Gran # (Auto) 0.03 (0.01-0.20) K/uL ESR 42 H (0-20) mm/hr PT 31.5 H (9.0-12.0) Seconds INR 3.2 H (0.9-1.1) APTT 39 H (21-31) Seconds PTT Ratio 1.4 Sodium 139 (136-145) mmol/L Potassium 4.1 (3.5-5.1) mmol/L Chloride 102 (98-107) mmol/L Carbon Dioxide 29 (21-32) mmol/L Anion Gap 8 (3-11) BUN 59 H (6-23) mg/dl Creatinine 3.43 H (0.6-1.4) mg/dl Est Cr Clr Drug Dosing 18.8 ml/min eGFR 17.02 BUN/Creatinine Ratio 17.2 (10-20) Glucose 211 H (70-99(Fasting)) mg/dl Lactate 2.4 H* (0.4-2.0) mmol/L Calcium 9.7 (8.6-10.3) mg/dl Total Bilirubin 1.1 H (0.2-1.0) mg/dl AST 19 (13-39) U/L ALT 15 (7-52) U/L Alkaline Phosphatase 98 (34-104) U/L C-Reactive Protein 2.75 H (0-0.5) mg/dl Total Protein 6.5 (6.0-8.3) gm/dl Albumin 3.8 (3.4-5.0) gm/dl Globulin 2.7 (2.5-4.0) gm/dl Albumin/Globulin Ratio 1.4 (0.9-2) Procalcitonin 0.06 (0-0.5) ng/ml Administered Medications Insulin Aspart (Insulin Aspart Per Unit Charge) 0 units SC ACHS ASIM Stop: 12/03/24 16:29 Last Admin: 11/03/24 17:57 Dose: 6 units Documented By: KIKI Co-signed By: [id number] Isosorbide Dinitrate (Isosorbide Dinitrate 20 Mg Tab) 20 mg PO BID@0700,1200 [facility] Stop: 12/03/24 16:59 Last Admin: 11/03/24 17:58 Dose: 20 mg Documented By: KIKI Torsemide (Torsemide 100 Mg Tab) 200 mg PO BID17 [facility] Stop: 12/03/24 16:59 Last Admin: 11/03/24 17:58 Dose: 200 mg Documented By: KIKI Discontinued Medications Vancomycin HCl 2,000 mg/ (Sodium Chloride) 540 mls @ 200 mls/hr IV NOW ONE Stop: 11/03/24 15:32 Last Infusion: 11/03/24 16:30 Dose: Infused Documented By: Admin: 11/03/24 13:52 Dose: 200 mls/hr Documented By: FLORINA Cefepime HCl (Maxipime 2000mg) 2,000 mg in 20 mls @ 5 mls/min IV NOW STA; Protocol Stop: 11/03/24 12:54 Last Admin: 11/03/24 13:16 Dose: 5 mls/min Documented By: SARAI Sodium Chloride (Nss) 1,000 mls @ 999 mls/hr IV .Q1H1M ONE Stop: 11/03/24 13:56 Last Infusion: 11/03/24 14:27 Dose: Infused Documented By: Admin: 11/03/24 13:17 Dose: 999 mls/hr Documented By: SARAI Imaging Data Radiologist's Impression: Foot X-Ray 11/03/24 12:08 XR foot LT 2V CLINICAL HISTORY: infection COMPARISON: Left second toe radiographs March 22, 2023. FINDINGS: Status post left second toe amputation. No acute fractures within the left foot are present. No areas of bony erosion are identified. 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 There is moderate arthritis within the midfoot. There are posterior and plantar calcaneal spurs. IMPRESSION: 1. No fractures within the left foot. No radiographic evidence for acute osteomyelitis. 2. Status post left second toe amputation. ACT 112: Negative or not required by law. Electronically signed by: Anil Smith M.D. 11/03/2024 2:10 PM Discharge Plan Visit Data Chief Complaint: Toe Injury/Pain Stated Complaint: POSSIBLE INFECTED TOE ON L FOOT, OPEN WOUND R LEG ED Provider: Thang Krueger Discharge Problem: Sepsis, Diabetic foot infection Patient Disposition: Admitted As Inpatient Discharge Instructions Interventions: ED Discharge Assessment Last Done: 11/03/24 15:59
[2024-11-03 12:29] LABS: Basophils # (auto) 0.09 K/uL (0.00-0.20); Basophils % (auto) 1.4 %; Eosinophils # (auto) 0.95 K/uL (0.00-0.50); Eosinophils % (auto) 14.8 %; Hemoglobin 10.5 g/dl (14.0-18.0); Immature Granulocytes # (auto) 0.03 K/uL (0.01-0.20); Immature Granulocytes % (auto) 0.5 %; Lymphocytes # (auto) 0.87 K/uL (1.20-3.40); Lymphocytes % (auto) 13.6 %; Mean Corpuscular Volume 93.3 fL (80.0-100.0); Mean Platelet Volume 11.3 fL (9.4-12.4); Monocytes # (auto) 0.41 K/uL (0.11-0.59); Monocytes % (auto) 6.4 %; Neutrophils # (auto) 4.06 K/uL (1.40-6.50); Neutrophils % (auto) 63.3 %; Platelet Count 107 K/uL (130-400); RDW Standard Deviation 64.4 fL (36.4-46.3); Red Blood Count 3.75 M/uL (4.70-6.10); White Blood Count 6.41 K/ul (4.8-10.8)
[2024-11-03 12:43] LABS: Albumin Globulin Ratio 1.4 (0.9-2); Albumin Level 3.8 gm/dl (3.4-5.0); BUN Creatinine Ratio 17.2 (10-20); Bilirubin,Total 1.1 mg/dl (0.2-1.0); C Reactive Protein 2.75 mg/dl (0-0.5); Calcium 9.7 mg/dl (8.6-10.3); Creatinine Clr Calc Pharmacy 18.8 ml/min; Globulin 2.7 gm/dl (2.5-4.0); Potassium 4.1 mmol/L (3.5-5.1); Total Protein 6.5 gm/dl (6.0-8.3)
[2024-11-03] MEDS ORDERED: VANCOMYCIN CONSULT ACTIVE PRN (12:51)
[2024-11-03 12:53] LABS: INR 3.2 (0.9-1.1); Partial Thromboplastin Ratio 1.4; Partial Thromboplastin Time 39 Seconds (21-31); Prothrombin Time 31.5 Seconds (9.0-12.0)
[2024-11-03] MEDS: CEFEPIME 2000MG 2,000 MG/20 ML SYR IV STA (13:16)
[2024-11-03] MEDS: SODIUM CHLORIDE 0.9% 1,000 ML IV ONE (13:17)
[2024-11-03] MEDS: VANCOMYCIN HCL 2,000 MG in SODIUM CHLORIDE 0.9% 500 ML IV ONE (13:52)
--- NOTE | 2024-11-03 14:11 | XRay Report ---
XR foot LT 2V CLINICAL HISTORY: infection COMPARISON: Left second toe radiographs March 22, 2023. FINDINGS: Status post left second toe amputation. No acute fractures within the left foot are presen t. No areas of bony erosion are identified. There is moderate osteoarthritis of the left first metata rsophalangeal joint. There is moderate arthritis within the midfoot. There are posterior and plantar calcaneal spurs. IMPRESSION: 1. No fractures within the left foot. No radiographic evidence for acute osteomyelitis. 2. Status post left second toe amputation. ACT 112: Negative or not required by law. Electronically signed by: Anil Smith M.D. 11/03/2024 2:10 PM
--- NOTE | 2024-11-03 14:15 | History & Physical Report ---
Date of Service November 03, 2024 Assessment & Plan (1) Toe ulcer: (2) Cellulitis of fourth toe, left: (3) Chronic venous insufficiency: Plan: Patient is 84 year old male with PMH HTN, atrial fibrillation anticoagulated on warfarin, chronic HFpEF, DM II, previously CKD V on HD, current CKD IV no longer on HD, CAD, COPD, hypothyroidism, chronic thrombocytopenia, BENI, ABRAN on 2L oxygen at bedtime, gout, history amputation left second toe presented to ER with c/o left 4th toe edema, erythema and tenderness x 3 days. In ER afebrile, vital stable. No leukocytosis. Lactate: 2.4, procalcitonin: 0.06, CRP: 2.7, ESR: 42 Left foot x-ray: No signs of osteomyelitis Blood cultures pending In ER given 1L NSS, cefepime, vancomycin Obtain admission EKG Obtain wound culture Obtain MRSA swab Cefepime, daptomycin given patient's history CKD Podiatry consult Wound nurse consult May need to consider MRI to rule out osteomyelitis CBC, BMP in a.m. (4) Diabetic peripheral neuropathy associated with type 2 diabetes mellitus: Plan: A1c: 7.9 on 09/27/2024 Hold home oral glycemic agents NovoLog sliding scale per protocol (5) CKD (chronic kidney disease), stage IV: Plan: Previous CKD V and was on dialysis. Current CKD IV No longer on HD Cr: 3.4. GFR: 17. (Baseline Cr: 2.9-3.3) Monitor renal functions Avoid nephrotoxic agents when possible Nephrology consult (6) Atrial fibrillation: Plan: Chronic atrial fibrillation anticoagulated on warfarin INR: 3.2 Denies signs of bleeding Had warfarin today. Hold warfarin and recheck INR in am (7) Hypertension: Plan: Continue losartan, metoprolol succinate (8) Chronic heart failure with preserved ejection fraction (HFpEF): Plan: Appears euvolemic Will continue torsemide (9) COPD (chronic obstructive pulmonary disease): Plan: Continue Home inhalers and albuterol prn (10) CAD (coronary artery disease): Plan: Continue isosorbide, metoprolol succinate (11) Hypothyroidism: Plan: Continue levothyroxine (12) Chronic anemia: Plan: Chronic thrombocytopenia Hgb: 10.5. Baseline 10's Plt: 107. Baseline 91- low 100's Monitor CBC (13) ABRAN (obstructive sleep apnea): Plan: On oxygen HS Continue home O2 HS DVT Prophylaxis Currently INR therapeutic. SCDs Admit med tele DNR/DNI as per discussion with pt Follows with Dr Simpson for routine care Pt was seen and care coordinated with Dr Cabrera. See addendum I spent a total of 70 minutes reviewing notes, outpatient records, labs, medication, coordinating, documenting and providing care for this patient excluding time spent in the performance of separately billed services. History of Present Illness Chief Complaint: Toe wound Primary Care Provider: Suman Simpson MD Patient is 84 year old male with PMH HTN, atrial fibrillation anticoagulated on warfarin, chronic HFpEF, DM II, previously CKD V on HD, current CKD IV no longer on HD, CAD, COPD, hypothyroidism, chronic thrombocytopenia, BENI, ABRAN on 2L oxygen at bedtime, gout, history amputation left second toe presented to ER with c/o left 4th toe edema, erythema and tenderness x 3 days. States past 3 days noticed left 4th toe erythema and is having pain with ambulating. Reports got new pair of shoes and thinks shoes may have rubbed his toe. Denies other known injury or trauma. Uses cane and walker and wheelchair if needing to walk far. Reports chronic SOB with exertion and denies any acute worsening. Denies fever/chills, diaphoresis, N/V/D/C, GORDON, dizziness, CP, palpitations, cough, sore throat, rhinorrhea, abdominal pain, extremity weakness, extremity edema, urinary symptoms. Allergies Allergy/AdvReac Type Severity Reaction Status Date / Time codeine Allergy Confusion Verified 10/28/23 09:52 metolazone AdvReac Severe SEVERE Verified 10/28/23 09:52 HYPONATREMIA morphine AdvReac Intermediate Hallucinati Verified 10/28/23 09:52 ons oxycodone AdvReac Intermediate Hallucinati Verified 10/28/23 09:52 ons Penicillins AdvReac Intermediate Hallucinati Verified 10/28/23 09:52 ons Home Medications Medication Instructions Recorded Confirmed Type ascorbic acid (vitamin C) 500 mg 500 mg PO QAM 07/23/21 11/03/24 History tablet (Vitamin C) gabapentin 100 mg capsule 100 mg PO BID 07/23/21 11/03/24 History glipizide 5 mg tablet 5 mg PO DAILY 07/23/21 11/03/24 History isosorbide dinitrate 20 mg tablet 20 mg PO BID 07/23/21 11/03/24 History levothyroxine 88 mcg tablet 88 mcg PO QAM 07/23/21 11/03/24 History metoprolol succinate 100 mg 100 mg PO BID 07/23/21 11/03/24 History tablet,extended release 24 hr multivitamin 1 tab PO QAM 07/23/21 11/03/24 History pantoprazole 40 mg tablet,delayed 40 mg PO QAM 07/23/21 11/03/24 History release tamsulosin 0.4 mg capsule 0.4 mg PO QAM 07/23/21 11/03/24 History warfarin 2.5 mg tablet 2.5 mg PO UD 07/23/21 11/03/24 History torsemide 100 mg tablet 200 mg PO BID 09/12/21 11/03/24 History fluticasone furoate 100 1 inh inhalation DAILY 09/02/23 11/03/24 History mcg-vilanterol 25 mcg/dose inhalation powder (Breo Ellipta) albuterol sulfate 0.63 mg/3 mL 0.63 mg inhalation Q6H PRN 11/03/24 11/03/24 History solution for nebulization Shortness Of Breath Or Wheezing allopurinol 100 mg tablet 50 mg PO DAILY 11/03/24 11/03/24 History cholecalciferol (vitamin D3) 25 25 mcg PO DAILY 11/03/24 11/03/24 History mcg (1,000 unit) tablet losartan 25 mg tablet 25 mg PO DAILY 11/03/24 11/03/24 History Past Med/Surg History Problem List (Updated 11/03/24 @ 15:53 by Yvonne Costa PA-C) Chronic anemia Toe ulcer Chronic heart failure with preserved ejection fraction (HFpEF) CAD (coronary artery disease) CKD (chronic kidney disease), stage IV Cellulitis of fourth toe, left Rash Diabetic ulcer of toe of right foot (Acute) Acute lower gastrointestinal bleeding (Acute) Symptomatic anemia (Acute) Elevated INR (Acute) ESRD on hemodialysis Anemia Lower GI bleed Status post partial amputation of foot Personal history of diabetic foot ulcer Diabetic peripheral neuropathy associated with type 2 diabetes mellitus Hypothyroidism Hyperlipidemia COPD (chronic obstructive pulmonary disease) Anemia Chronic Per PCP records- presumed anemia due to CKD- baseline Hgb usually around 10.5 Chronic venous insufficiency (Chronic) Hypertension Type 2 diabetes mellitus NIDDM CKD (chronic kidney disease) Stage 5CKD, follows with Dr. Jaramillo>"he thought it was stage 4" "ESRD... not on dialysis" per PCP records Atrial fibrillation On warfarin Medical History History of acute prostatitis Rheumatoid arthritis Per PCP records ABRAN (obstructive sleep apnea) Per PCP records A-V fistula lt side; did not start dialysis yet Thrombocytopenia Chronic, baseline low 100s per chart review Deaf Left Chronic back pain GERD (gastroesophageal reflux disease) BPH (benign prostatic hyperplasia) Surgical History History of repair of rotator cuff Left History of carpal tunnel release R/L History of total knee replacement R/L Fusion of spine Neck Fusion of spine Lumbar History of colonoscopy History of cardiac cath 2010 > no stents >[facility] Nausea and vomiting after administration of anesthetic agent Family History Mother Cancer Other Family history non-contributory Social History Smoking Status: Never smoker Second Hand Exposure: Yes (hx at work); Do You Dip or Chew Tobacco: No; Hx Alcohol Use: No Hx Substance Use: No Preferred Language: Estonian Communication Ability: Effective Turner Machine Operator Required: No Beliefs That Will Affect Care: None marital status: Current Living Situation: Spouse Feels Safe at Home: Yes Assistive Devices: Bedside Commode, Cane, Oxygen - at Night, Stair Lift and Walker Review of Systems Review of Systems: All systems reviewed & are unremarkable except as noted in HPI & below Physical Exam Physical Exam: PE per Dr Cabrera Results & Data Results & Data Vital Signs (Past 12 Hours) Vital Signs Temp Pulse Resp BP Pulse Ox O2 Del Method 11/03/24 12:30 76 20 128/76 98 Room Air 11/03/24 12:00 75 18 137/73 98 Room Air 11/03/24 11:54 78 11/03/24 11:26 36.8 C 78 18 179/84 H 95 Laboratory Results Short CBC 11/03/24 Range/Units 12:00 WBC 6.41 (4.8-10.8) K/ul Hgb 10.5 L (14.0-18.0) g/dl Hct 35.0 L (42.0-52.0) % Plt Count 107 L (130-400) K/uL BMP 11/03/24 12:00 Sodium 139 Potassium 4.1 Chloride 102 Carbon Dioxide 29 BUN 59 H Creatinine 3.43 H Glucose 211 H Calcium 9.7 Liver Function 11/03/24 Range/Units 12:00 Total Bilirubin 1.1 H (0.2-1.0) mg/dl AST 19 (13-39) U/L ALT 15 (7-52) U/L Alkaline Phosphatase 98 (34-104) U/L Albumin 3.8 (3.4-5.0) gm/dl Diagnostic Findings Foot X-Ray 11/03/24 12:08 XR foot LT 2V CLINICAL HISTORY: infection COMPARISON: Left second toe radiographs March 22, 2023. FINDINGS: Status post left second toe amputation. No acute fractures within the left foot are present. No areas of bony erosion are identified. 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 There is moderate arthritis within the midfoot. There are posterior and plantar calcaneal spurs. IMPRESSION: 1. No fractures within the left foot. No radiographic evidence for acute osteomyelitis. 2. Status post left second toe amputation. ACT 112: Negative or not required by law. Electronically signed by: Anil Smith M.D. 11/03/2024 2:10 PM Supervising Physician Co-Signing Physician Notes Patient is an 84-year-old male with history of atrial fibrillation on chronic anticoagulation with Coumadin, HFpEF, CKD previously on dialysis, diabetes mellitus, COPD, hypothyroidism and other medical problems presents with left fourth toe edema, erythema, tenderness and pain with weightbearing which has been gradually worsening since 3 days ago. Patient had amputation of his second toe previously by podiatry. He denies any trauma, fever, chills. Chronic d yspnea unchanged. Patient denies any chest pain, nausea, vomiting, abdominal pain. I personally reviewed blood work and imaging studies. Noted supratherapeutic INR 3.2, chronic thrombocytopenia. Creatinine 3.43. Elevated ESR, CRP. Mild lactic acidosis. Normal procalcitonin. X-ray of the foot showed no fractures or signs of osteomyelitis. Physical Exam: Vitals signs as noted above General Appearance: Obese, no apparent distress Head: normocephalic, Atraumatic Eyes: normal inspection, EOMI Neck: supple, Trachea midline Respiratory/Chest: Normal breath sounds, scant wheezing, No accessory muscle use Cardiovascular: Irregularly irregular, No murmur Abdomen/GI:Soft, Non tender, Bowel sounds present Extremities/Musculoskeletal:normal inspection, B/L chronic venous stasis changes, edema, fourth toe erythema, edema, small wound, right leg skin tear Neurologic/Psych:AAOX3, grossly no focal neurological deficits Skin: normal color, warm Diabetic left foot Ulcer/cellulitis Chronic thrombocytopenia Supratherapeutic INR CKD stage IV Ambulatory dysfunction Blood, wound cultures Empirically started on daptomycin, cefepime Check MRSA Lactic acidosis likely due to renal insufficiency Podiatry consulted Continue local wound care Pain control as needed Monitor platelet count Hold Coumadin for possible procedure Avoid nephrotoxic agents as able I personally interviewed and examined at bedside. Patient's care is coordinated with Yvonne Costa PA-C. I have reviewed the advanced practitioner's documentation, and I agree with plan of care. Please refer to the documentation above for details of patient's presentation and for discussion of other issues. I spent a total [id number] coordinating, documenting, and providing care for this patient excluding time spent in the performance of separately billed services.
[2024-11-03] MEDS ORDERED: DEXTROSE 50% 50 ML SYRINGE IV PRN (16:28)
[2024-11-03] MEDS ORDERED: GLUCOSE 40% GEL 15 GM TUBE PO PRN (16:28)
[2024-11-03] MEDS ORDERED: ONDANSETRON INJ 2 MG/ML 2 ML VIAL IV PRN (16:28)
[2024-11-03] MEDS ORDERED: CARBOHYDRATES FOR HYPOGLYCEMIA PO PRN (16:28)
[2024-11-03] MEDS ORDERED: POLYETHYLENE (MIRALAX) 17 GM PACK PO PRN (16:28)
[2024-11-03] MEDS ORDERED: GLUCAGON FOR INJ 1 MG VIAL SQ PRN (16:28)
[2024-11-03] MEDS ORDERED: GLUCOSE 10 TAB/TUBE PO PRN (16:28)
[2024-11-03] MEDS ORDERED: ACETAMINOPHEN 325 MG TAB PO PRN (16:28)
[2024-11-03] MEDS ORDERED: ALBUTEROL 0.083% NEBU SOLN 3 ML VIAL INH PRN (16:48)
[2024-11-03] MEDS ORDERED: ALBUT/IPRATROP 3MG/0.5MG NEB 3 ML VIAL NEB PRN (16:57)
[2024-11-03] MEDS: INSULIN ASPART PER UNIT CHARGE SC SCH (17:57)
[2024-11-03] MEDS: ISOSORBIDE DINITRATE 20 MG TAB PO SCH (17:58)
[2024-11-03] MEDS: TORSEMIDE 100 MG TAB PO SCH (17:58)
[2024-11-03] MEDS: METOPROLOL SUCC 50MG EXT REL TAB PO SCH (21:17)
[2024-11-03] MEDS: GABAPENTIN 100 MG CAP PO SCH (21:17)
[2024-11-03] MEDS: CEFEPIME 1000MG 1,000 MG/10 ML SYR IV SCH (23:58)
[2024-11-04 06:22] LABS: Hematocrit (blood only) 35.9 % (42.0-52.0); Hemoglobin 10.9 g/dl (14.0-18.0); Mean Corpuscular Hemoglobin 27.9 pg (25.0-34.0); Mean Corpuscular Hgb Conc 30.4 g/dL (32.0-36.0); Mean Corpuscular Volume 92.1 fL (80.0-100.0); Mean Platelet Volume 11.6 fL (9.4-12.4); Platelet Count 116 K/uL (130-400); RDW Coefficient of Variation 18.6 % (11.5-14.5); RDW Standard Deviation 63.6 fL (36.4-46.3); White Blood Count 6.02 K/ul (4.8-10.8)
[2024-11-04] MEDS: LEVOTHYROXINE SODIUM 88 MCG TABLET PO SCH (06:34)
[2024-11-04 06:44] LABS: Prothrombin Time 29.3 Seconds (9.0-12.0)
--- NOTE | 2024-11-04 08:12 | Hospitalist Progress Note ---
Date of Service November 04, 2024 Assessment & Plan (1) Toe ulcer: (2) Cellulitis of fourth toe, left: (3) Chronic venous insufficiency: Plan: Patient is 84 year old male with PMH HTN, atrial fibrillation anticoagulated on warfarin, chronic HFpEF, DM II, previously CKD V on HD, current CKD IV no longer on HD, CAD, COPD, hypothyroidism, chronic thrombocytopenia, BENI, ABRAN on 2L oxygen at bedtime, gout, history amputation left second toe presented to ER with c/o left 4th toe edema, erythema and tenderness x 3 days. No leukocytosis. Lactate: 2.4, procalcitonin: 0.06, CRP: 2.7, ESR: 42 Left foot x-ray: No signs of osteomyelitis Prelim blood culture 1/2 bottles growing gram positive cocci clusters, wound cx pending Continue empiric Cefepime, daptomycin Podiatry consult - Per Dr. Crawford, obtaining MRI foot given chronicity and history of loss of other toes. Wound debrided at bedside, did discuss worse case of amputation with patient but unlikely at this time Continue wound care (4) Diabetic peripheral neuropathy associated with type 2 diabetes mellitus: Plan: A1c: 7.9 on 09/27/2024 Hold home oral glycemic agents NovoLog sliding scale per protocol (5) CKD (chronic kidney disease), stage IV: Plan: Previous CKD V and was on dialysis. Current CKD IV No longer on HD Cr: 3.4 -> 3.6 today (Baseline Cr: 2.9-4.1 over past year, generally low 3s) Evaluated by nephro. Per Dr. Viera, at Cr baseline. Okay with continuing home Torsemide, losartan Daily standing weight - accurate I&Os needed Dialysis diet with 1.5 L daily FR Daily BMP (6) Atrial fibrillation: Plan: Chronic atrial fibrillation anticoagulated on warfarin Unlikely for OR per podiatry above but will hold afternoon dose of Coumadin with INR 3.0 Recheck INR in AM (7) Hypertension: Plan: Continue losartan, metoprolol succinate (8) Chronic heart failure with preserved ejection fraction (HFpEF): Plan: Continue Torsemide as above (9) COPD (chronic obstructive pulmonary disease): Plan: Continue home inhalers, Duonebs QIDR PRN SOB or wheezing (10) CAD (coronary artery disease): Plan: Continue isosorbide, metoprolol succinate (11) Hypothyroidism: Plan: Continue levothyroxine (12) Chronic anemia: Plan: Chronic thrombocytopenia, plts at baseline Daily CBC (13) ABRAN (obstructive sleep apnea): Plan: Continue home O2 HS DVT Prophylaxis: resume coumadin per INR, if patient does not require OR PCP: Calvin Dispo: Admitted to [facility] Code: DNR/DNI as per discussion with pt Care coordinated with Dr. Gonzáles I spent a total of 40 minutes reviewing notes, outpatient records, labs, medication, coordinating, documenting and providing care for this patient excluding time spent in the performance of separately billed services. Admission and Anticipated Discharge Date Admission Date: November 03, 2024 Supervising Physician Co-Signing Physician Notes I have seen and discussed the case with the collaborating advanced practitioner. I agree with the above PN. I have reviewed and confirmed the patients medical history, the findings on physical examination, and the patients diagnosis and treatment plan with Bong RODRIGUEZ and agree with the information documented. pending MRI w/o contrast for foot Nephrology notes reviewed Continue abx for now I spent a total of 5minutes coordinating, documenting, and providing care for this patient excluding time spent in the performance of separately billed services. All of the aforementioned completed outside of collaborating with the assigned advanced practitioner for a full treatment plan. I have reviewed the advanced practitioner's documentation, and I agree with, and take responsibility for the plan of care Subjective Patient seen and examined in 250 bed 2. Denies any acute events overnight. Has limited sensation in lower extremities but denies any toe or foot pain at this time. No fever, chills, chest pain, shortness of breath, nausea, vomiting, dysuria, diarrhea or constipation. Review of Systems Review of Systems: At least ten systems reviewed and negative except as noted in the HPI. Physical Exam Physical Exam: Gen: WD/WN, NAD, sitting in bed, A&Ox3 HEENT: Normocephalic, atraumatic, mucous membranes moist Lung: Scattered Heart: irregular rhythm Abdomen: Soft, NT, ND +BS x 4 Extremities: + LLE with venous stasis changes, great toe with lesion, closed on distal aspect, no drainage. RLE with erythema, scaling and venous stasis changes of anterior rose. R 4th toe reddish purple, no drainage noted, warm, decreased sensation Skin: Warm, no rash Results & Data Results & Data Vital Signs (Past 12 Hours) Vital Signs Temp Pulse Pulse Resp BP Pulse Ox O2 Del Method 11/04/24 07:20 Nasal Cannula 11/04/24 07:18 71 11/04/24 06:59 36.6 C 68 18 155/84 H 99 Nasal Cannula 11/04/24 03:36 36.8 C 89 16 156/83 H 95 Room Air 11/03/24 22:20 37.0 C 79 18 163/94 H 93 Room Air 11/03/24 21:48 60 O2 Flow Rate 11/04/24 07:20 2 11/04/24 07:18 11/04/24 06:59 2 11/04/24 03:36 11/03/24 22:20 11/03/24 21:48 Laboratory Results Short CBC 11/04/24 Range/Units 05:53 WBC 6.02 (4.8-10.8) K/ul Hgb 10.9 L (14.0-18.0) g/dl Hct 35.9 L (42.0-52.0) % Plt Count 116 L (130-400) K/uL BMP 11/04/24 05:53 Sodium 141 Potassium 4.0 Chloride 105 Carbon Dioxide 25 BUN 59 H Creatinine 3.60 H Glucose 134 H Calcium 9.9 Diagnostic Findings Foot X-Ray 11/03/24 12:08 XR foot LT 2V CLINICAL HISTORY: infection COMPARISON: Left second toe radiographs March 22, 2023. FINDINGS: Status post left second toe amputation. No acute fractures within the left foot are present. No areas of bony erosion are identified. 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 There is moderate arthritis within the midfoot. There are posterior and plantar calcaneal spurs. IMPRESSION: 1. No fractures within the left foot. No radiographic evidence for acute osteomyelitis. 2. Status post left second toe amputation. ACT 112: Negative or not required by law. Electronically signed by: Anil Smith M.D. 11/03/2024 2:10 PM (1) Toe ulcer Laterality: left Non-pressure ulcer stage: with fat layer exposed Qualified Code(s): L97.522 - Non-pressure chronic ulcer of other part of left foot with fat layer exposed
[2024-11-04] MEDS: FLUTICASONE/VILANTEROL 100/25MCG 14 PUFFS/INHALER INH SCH (09:04)
[2024-11-04] MEDS: DAPTOmycin 325 MG in SYRINGE 0 ML IV SCH (09:04)
[2024-11-04] MEDS: TAMSULOSIN HCL 0.4 MG CAP PO SCH (09:05)
[2024-11-04] MEDS: PANTOprazole 40 MG TAB PO SCH (09:05)
[2024-11-04] MEDS: CHOLECALCIFEROL 25 MCG (1000 UNITS) TAB PO SCH (09:06)
[2024-11-04] MEDS: allopurinoL 100 MG TAB PO SCH (09:06)
[2024-11-04] MEDS: LOSARTAN POTASSIUM 25 MG TAB PO SCH (09:06)
[2024-11-04 09:34] LABS: Calcium 9.9 mg/dl (8.6-10.3); Magnesium 2.1 mg/dl (1.7-2.4)
[2024-11-04 09:39] LABS: BUN Creatinine Ratio 16.4 (10-20); Creatinine Clr Calc Pharmacy 18.2 ml/min; Phosphorus 3.4 mg/dl (2.5-4.9)
[2024-11-04 09:54] LABS: A calco-baum cmplx NotReported Not Detected (NotDetected); Bact fragilis Not Reported Not Detected (NotDetected); Blood Culture Id Panel See PCR Comment (NotDetected); C auris Not Reported Not Detected (NotDetected); Calbicans Not Reported Not Detected (NotDetected); Candida glabrata Not Reported Not Detected (NotDetected); Candida krusei Not Reported Not Detected (NotDetected); Cneoformans/gatti Not Reported Not Detected (NotDetected); Cparapsilosis Not Reported Not Detected (NotDetected); E cloacae compx Not Reported Not Detected (NotDetected); Efaecalis Not Reported Not Detected (NotDetected); Efaecium Not Reported Not Detected (NotDetected); Enterobacterales Not Reported Not Detected (NotDetected); Escherichia coli Not Reported Not Detected (NotDetected); H influenzae Not Reported Not Detected (NotDetected); K aerogenes Not Reported Not Detected (NotDetected); Koxytoca Not Reported Not Detected (NotDetected); Kpneumoniae grp Not Reported Not Detected (NotDetected); Lmonocyt Not Reported Not Detected (NotDetected); N meningitidis Not Reported Not Detected (NotDetected); P aeruginosa Not Reported Not Detected (NotDetected); Proteus spp Not Reported Not Detected (NotDetected); Salmonella spp Not Reported Not Detected (NotDetected); Staph lugdunensis Not Reported Not Detected (NotDetected); Staph spp. Not Reported DETECTED (NotDetected); Staphaureus Not Reported Not Detected (NotDetected); Staphepi Not Reported Not Detected (NotDetected); Stenmaltophilia Not Reported Not Detected (NotDetected); Strep agal(GrpB) Not Reported Not Detected (NotDetected); Strep pneum Not Reported Not Detected (NotDetected); Strep pyog (GrpA) Not Reported Not Detected (NotDetected); Strep spp Not Reported Not Detected (NotDetected)
[2024-11-04 09:55] LABS: Staphylococcus spp. DETECTED (NotDetected)
--- NOTE | 2024-11-04 10:39 | Nephrology Consultation ---
Date of Consultation November 04, 2024 Assessment & Plan (1) CKD (chronic kidney disease), stage IV: his creatinine over the past year has ranged 2.9-4.1, most recently 2.9 late august but generally mid /low 3s. creatinine remains at baseline. mild volume overload on exam. chemistries acceptable -bmp daily -agree w/ continuing high dose torsemide, OP low dose losartan for now -daily STANDING weight pls > so ordered -1.5 L daily FR ordered -ok w/ dialysis diet for now -if MRI needed would ideally avoid use of contrast agent if feasible -strict I/O >> hospitalist to reinforce w/ floor team pls Care coordinated w/ Dr Gonzáles re fluid limit, I/O, daily weights, current meds; we are in agreement. History of Present Illness Reason for Consultation: CKD4 Requesting Physician: Dr Cabrera Attending Physician: Shirlene Gonzáles MD History of Present Illness 84 y/o M whom I'm asked to see for CKD 4 was admitted yesterday afternoon w/ R 4th toe cellulitis after p/w 4 days of pain/redness/swelling same region and pain w/ ambulation after getting new pair of shoes. PMH includes HTN, AF on warfarin, HFpEF, CAD, COPD, ABRAN on 2L 02HS, DM2, hypothyroid, chronic thrombocytopenia. H/o CKDV on HD apparently w/ recovery enough to be CKD 4. Chronic ambulatory dysfunction > uses walker/ cane/ at times w/c. R 4th great toe pain as above. no other injury reported to that area. stable chronic exertional dyspnea. no change in mild chronic edema. no f/c, n/v/d/c/abd pain, no falls or presyncopal sx, no cough or orthopnea, no chest pain or palpitations; no new/worrisome voiding sx. He had a L of NS in ED and received vanco (changed on admission to daptomycin) and cefepime. his high dose OP torsemide (200 mg bid) was continued. Allergies Allergy/AdvReac Type Severity Reaction Status Date / Time codeine Allergy Confusion Verified 10/28/23 09:52 metolazone AdvReac Severe SEVERE Verified 10/28/23 09:52 HYPONATREMIA morphine AdvReac Intermediate Hallucinati Verified 10/28/23 09:52 ons oxycodone AdvReac Intermediate Hallucinati Verified 10/28/23 09:52 ons Penicillins AdvReac Intermediate Hallucinati Verified 10/28/23 09:52 ons Home Medications Medication Instructions Recorded Confirmed Type ascorbic acid (vitamin C) 500 mg 500 mg PO QAM 07/23/21 11/03/24 History tablet (Vitamin C) gabapentin 100 mg capsule 100 mg PO BID 07/23/21 11/03/24 History glipizide 5 mg tablet 5 mg PO DAILY 07/23/21 11/03/24 History isosorbide dinitrate 20 mg tablet 20 mg PO BID 07/23/21 11/03/24 History levothyroxine 88 mcg tablet 88 mcg PO QAM 07/23/21 11/03/24 History metoprolol succinate 100 mg 100 mg PO BID 07/23/21 11/03/24 History tablet,extended release 24 hr multivitamin 1 tab PO QAM 07/23/21 11/03/24 History pantoprazole 40 mg tablet,delayed 40 mg PO QAM 07/23/21 11/03/24 History release tamsulosin 0.4 mg capsule 0.4 mg PO QAM 07/23/21 11/03/24 History warfarin 2.5 mg tablet 2.5 mg PO UD 07/23/21 11/03/24 History torsemide 100 mg tablet 200 mg PO BID 09/12/21 11/03/24 History fluticasone furoate 100 1 inh inhalation DAILY 09/02/23 11/03/24 History mcg-vilanterol 25 mcg/dose inhalation powder (Breo Ellipta) albuterol sulfate 0.63 mg/3 mL 0.63 mg inhalation Q6H PRN 11/03/24 11/03/24 History solution for nebulization Shortness Of Breath Or Wheezing allopurinol 100 mg tablet 50 mg PO DAILY 11/03/24 11/03/24 History cholecalciferol (vitamin D3) 25 25 mcg PO DAILY 11/03/24 11/03/24 History mcg (1,000 unit) tablet losartan 25 mg tablet 25 mg PO DAILY 11/03/24 11/03/24 History Patient History Medical History CKD (chronic kidney disease), stage IV on hemodialysis in the past History of acute prostatitis Rheumatoid arthritis Per PCP records ABRAN (obstructive sleep apnea) Per PCP records A-V fistula lt side; did not start dialysis yet Thrombocytopenia Chronic, baseline low 100s per chart review Deaf Left Chronic back pain GERD (gastroesophageal reflux disease) BPH (benign prostatic hyperplasia) Surgical History History of repair of rotator cuff Left History of carpal tunnel release R/L History of total knee replacement R/L Fusion of spine Neck Fusion of spine Lumbar History of colonoscopy History of cardiac cath 2010 > no stents >[facility] Nausea and vomiting after administration of anesthetic agent Family History Mother Cancer Other Family history non-contributory Social History Smoking Status: Never smoker Second Hand Exposure: Yes (hx at work); Do You Dip or Chew Tobacco: No; Hx Alcohol Use: No Hx Substance Use: No Preferred Language: Bangladeshi Communication Ability: Effective Defective Cigarette Slitter Required: No Beliefs That Will Affect Care: None marital status: Current Living Situation: Spouse Feels Safe at Home: Yes Safety Concerns: Feels Safe At This Time Assistive Devices: Cane, Oxygen - at Night and Walker Assistive Devices Comment: Cane with pt Review of Systems 2 Review of Systems: All systems reviewed & are unremarkable except as noted in HPI & below Physical Exam 2 Constitutional: well developed and well nourished Eyes: EOM intact bilaterally ENMT: Mouth: + dry oral mucous membranes Respiratory: normal respiratory effort Auscultation: + diminished lung sounds (markedly) Cardiovascular: Rate/Rhythm: regular rate and regular rhythm Extremities: + edema (trace dependent) and + AV fistula (+ t/b) Gastrointestinal (Abdomen): Inspection/Auscultation: normal bowel sounds P ercussion/Palpation: abdomen soft; abdomen nontender Musculoskeletal: Extremities: strength 5/5 throughout Skin: no rashes, warm and dry Neurologic: miles, fluent speech, no tremor Results & Data Vital Signs (Past 12 Hours) Vital Signs Temp Pulse Pulse Resp BP Pulse Ox O2 Del Method 11/04/24 07:20 Nasal Cannula 11/04/24 07:18 71 11/04/24 06:59 36.6 C 68 18 155/84 H 99 Nasal Cannula 11/04/24 03:36 36.8 C 89 16 156/83 H 95 Room Air O2 Flow Rate 11/04/24 07:20 2 11/04/24 07:18 11/04/24 06:59 2 11/04/24 03:36 Laboratory Results 11/04/24 05:53 11/04/24 05:53 Diagnostic Findings Xray foot > no e/o OM; no frx
--- NOTE | 2024-11-04 11:33 | Electrocardiogram Report ---
Test Reason : Blood Pressure : */* mmHG Vent. Rate : 65 BPM Atrial Rate : 416 BPM P-R Int : * ms QRS Dur : 96 ms QT Int : 408 ms P-R-T Axes : * -5 93 degrees QTcB Int : 424 ms Poor data quality, interpretation may be adversely affected Atrial fibrillation Low voltage QRS Nonspecific T wave abnormality Abnormal ECG When compared with ECG of 02-Sep-2023 12:35, Nonspecific T wave abnormality, worse in Inferior leads Nonspecific T wave abnormality, improved in Lateral leads Confirmed by Cali Salgado ([id number]) on 11/04/2024 11:32:50 AM Referred By: REFERRED SELF Confirmed By: Cali Salgado
--- NOTE | 2024-11-04 13:55 | Podiatry Consultation ---
Date of Consultation November 04, 2024 Assessment & Plan (1) Diabetic foot infection: (2) Toe ulcer: Laterality: left Non-pressure ulcer stage: with fat layer exposed Qualified Code(s): L97.522 - Non-pressure chronic ulcer of other part of left foot with fat layer exposed (3) Status post partial amputation of foot: Laterality: left Qualified Code(s): Z89.432 - Acquired absence of left foot (4) Skin ulcer of left foot including toes with fat layer exposed: Plan examined and evaluated. His left fourth toe is edematous erythematous with a superficial ulceration noted. It does extend to the level of the subcutaneous tissue but only because of the location of the dorsal fourth toe. There is no underlying deep probing. Still, because of the chronicity and history of loss of other toes, he could benefit from an MRI. An order for this was sent in. The wound was sharply debridement at bedside and we will continue to follow. We did discuss that worst cases and another amputation for this digit, though this is unlikely at this point. Thank you for the consult, we look forward to helping out with him now and outpatient after discharge. History of Present Illness Reason for Consultation: Left foot ulceration/infection Attending Physician: Shirlene Gonzáles MD History of Present Illness Patient seen at bedside. States that he has developed a new ulceration to the left fourth toe that has "been there for some time." He has had a history of wounds and amputation to the second toe of the same foot around this time last year. He regularly follows-up with us in our office for care of his nails and calluses since his prior amputation. We last saw him around two weeks ago and he had no wound here. Now, he has developed infection and this wound. He denies any systemic signs/symptoms of infection but has also been worked up for this right calf swelling and cellulitis, which he thinks is more substantial. He denies any other recent medical history change. Allergies Allergy/AdvReac Type Severity Reaction Status Date / Time codeine Allergy Confusion Verified 10/28/23 09:52 metolazone AdvReac Severe SEVERE Verified 10/28/23 09:52 HYPONATREMIA morphine AdvReac Intermediate Hallucinati Verified 10/28/23 09:52 ons oxycodone AdvReac Intermediate Hallucinati Verified 10/28/23 09:52 ons Penicillins AdvReac Intermediate Hallucinati Verified 10/28/23 09:52 ons Home Medications Medication Instructions Recorded Confirmed Type ascorbic acid (vitamin C) 500 mg 500 mg PO QAM 07/23/21 11/03/24 History tablet (Vitamin C) gabapentin 100 mg capsule 100 mg PO BID 07/23/21 11/03/24 History glipizide 5 mg tablet 5 mg PO DAILY 07/23/21 11/03/24 History isosorbide dinitrate 20 mg tablet 20 mg PO BID 07/23/21 11/03/24 History levothyroxine 88 mcg tablet 88 mcg PO QAM 07/23/21 11/03/24 History metoprolol succinate 100 mg 100 mg PO BID 07/23/21 11/03/24 History tablet,extended release 24 hr multivitamin 1 tab PO QAM 07/23/21 11/03/24 History pantoprazole 40 mg tablet,delayed 40 mg PO QAM 07/23/21 11/03/24 History release tamsulosin 0.4 mg capsule 0.4 mg PO QAM 07/23/21 11/03/24 History warfarin 2.5 mg tablet 2.5 mg PO UD 07/23/21 11/03/24 History torsemide 100 mg tablet 200 mg PO BID 09/12/21 11/03/24 History fluticasone furoate 100 1 inh inhalation DAILY 09/02/23 11/03/24 History mcg-vilanterol 25 mcg/dose inhalation powder (Breo Ellipta) albuterol sulfate 0.63 mg/3 mL 0.63 mg inhalation Q6H PRN 11/03/24 11/03/24 History solution for nebulization Shortness Of Breath Or Wheezing allopurinol 100 mg tablet 50 mg PO DAILY 11/03/24 11/03/24 History cholecalciferol (vitamin D3) 25 25 mcg PO DAILY 11/03/24 11/03/24 History mcg (1,000 unit) tablet losartan 25 mg tablet 25 mg PO DAILY 11/03/24 11/03/24 History Patient History Medical History CKD (chronic kidney disease), stage IV on hemodialysis in the past History of acute prostatitis Rheumatoid arthritis Per PCP records ABRAN (obstructive sleep apnea) Per PCP records A-V fistula lt side; did not start dialysis yet Thrombocytopenia Chronic, baseline low 100s per chart review Deaf Left Chronic back pain GERD (gastroesophageal reflux disease) BPH (benign prostatic hyperplasia) Surgical History History of repair of rotator cuff Left History of carpal tunnel release R/L History of total knee replacement R/L Fusion of spine Neck Fusion of spine Lumbar History of colonoscopy History of cardiac cath 2010 > no stents >[facility] Nausea and vomiting after administration of anesthetic agent Family History Mother Cancer Other Family history non-contributory Social History Smoking Status: Never smoker Second Hand Exposure: Yes (hx at work); Do You Dip or Chew Tobacco: No; Hx Alcohol Use: No Hx Substance Use: No Preferred Language: Guyanese Communication Ability: Effective 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: No Beliefs That Will Affect Care: None marital status: Current Living Situation: Spouse Feels Safe at Home: Yes Safety Concerns: Feels Safe At This Time Assistive Devices: Cane, Oxygen - at Night and Walker Assistive Devices Comment: Cane with pt Review of Systems Review of Systems: All systems reviewed & are unremarkable except as noted in HPI & below Constitutional: + weakness; no fever, no chills and no f atigue Eyes: no problem reported Ear, Nose, Mouth, Throat: no problem reported Respiratory: no problem reported Cardiovascular: + edema; no problem reported Gastrointestinal: no nausea, no vomiting and no problem reported Musculoskeletal: no problem reported Integumentary: + changing lesions, + skin ulcer, + woun ds and + erythema Neurologic: + loss of sensation, + numbness and + pa resthesia; no generalized weakness Psychiatric: no problem reported Physical Exam Physical Exam: Lower extremity focused exam: DP/PT pulses non palpable. Diffuse edema noted to bilateral lower extremity. Well healed amputation noted to the left second toe. Superficial ulceration noted to the left fourth toe, overlying the PIPJ. Upon sharp debridement at bedside, No deep extension noted. No tracking to the joint or along the extensor apparatus noted. No purulence noted. Wound measures 0.3 x 0.2 x 0.1 cm. Toe is edematous and erythematous, though no ascending cellulitis noted. CFT is brisk to the digits. No pain on palpation of the ulcer or with debridement. 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 Right lower extremity has a wound to the proximal calf, well-dressed, and left intact at this visit. Constitutional: WD/WN, vitals as above + ill appearing and + obese Eyes: PERRL, conjunctivae normal, anicteric sclerae ENMT: external ear and nose normal, oropharynx normal Neck: trachea midline, no thyromegaly normal visual inspection Respiratory: normal respiratory effort; no respiratory distress Cardiovascular: Rate/Rhythm: regular rate and regular rhythm Vessels: + posterior tibial pulses abnormal and + dorsalis pedis pulses abnormal Extremities: normal capillary refill and + edema Chest (Breasts): Chest: normal inspection of chest Gastrointestinal (Abdomen): Inspection/Auscultation: abdomen normal to inspection Percussion/Palpation: + abdomen tender and abdomen soft Musculoskeletal: no cyanosis or clubbing, extremities motor strength 5/5 Head/Neck/Chest: normocephalic and head atraumatic Extremities: extremities normal to inspection Ankle: + skin erythema and + limited ROM of ankle; no ecchymosis Skin: + ulcer, + skin tightening, + wound, + s kin atrophy, + erythema and + nails dystrophic Neurologic: moves all extremities and awake; + abnormal sensation to monofilament and no focal motor deficits Psychiatric: A+Ox3, euthymic affect Orientation: alert and oriented x 3 Speech: normal rate/rhythm/volume of speech Lymphatic: + lymphedema Results & Data Vital Signs (Past 12 Hours) Vital Signs Temp Pulse Pulse Resp BP Pulse Ox O2 Del Method 11/04/24 11:02 36.8 C 75 18 152/92 H 100 Nasal Cannula 11/04/24 07:20 Nasal Cannula 11/04/24 07:18 71 11/04/24 06:59 36.6 C 68 18 155/84 H 99 Nasal Cannula 11/04/24 03:36 36.8 C 89 16 156/83 H 95 Room Air O2 Flow Rate 11/04/24 11:02 2 11/04/24 07:20 2 11/04/24 07:18 11/04/24 06:59 2 11/04/24 03:36 Diagnostic Findings Radiographs reveal no acute findings, influding no evidence of osteomyelitis or soft tissue gas formation.
[2024-11-04] MEDS ORDERED: ALBUT/IPRATROP 3MG/0.5MG NEB 3 ML VIAL NEB PRN (15:33)
[2024-11-04] MEDS ORDERED: ALBUT/IPRATROP 3MG/0.5MG NEB 3 ML VIAL NEB SCH (19:00)
--- NOTE | 2024-11-05 00:25 | Magnetic Resonance Report ---
Exam(s): MRI LEFT FOOT Without Contrast EXAM: MR Left Lower Extremity Without Intravenous Contrast, Foot CLINICAL HISTORY: Reason for exam: left toe ulcer/infection. TECHNIQUE: Multiplanar magnetic resonance images of the left foot without intravenous contrast. COMPARISON: X-rays dated 11/03/2024 FINDINGS: There is soft tissue swelling and edema particularly along the dorsum of the foot. No discrete fluid collection is noted. Patient is status post amputation of the second digit. Bony structures are otherwise intact. No evidence of acute fracture or dislocation. No significant bone marrow edema is noted. There are hypertrophic degenerative changes.. IMPRESSION: There is soft tissue swelling and edema particularly along the dorsum of the foot. Patient is status post amputation of the second digit. No MRI evidence of acute osteomyelitis. Electronically signed by: Nate Queen MD 11/05/24 00:23 AM
[2024-11-05 08:13] LABS: Hematocrit (blood only) 36.2 % (42.0-52.0); Hemoglobin 10.9 g/dl (14.0-18.0); Mean Corpuscular Hemoglobin 27.5 pg (25.0-34.0); Mean Corpuscular Hgb Conc 30.1 g/dL (32.0-36.0); Mean Corpuscular Volume 91.4 fL (80.0-100.0); Mean Platelet Volume 10.9 fL (9.4-12.4); Platelet Count 101 K/uL (130-400); RDW Coefficient of Variation 18.4 % (11.5-14.5); RDW Standard Deviation 61.1 fL (36.4-46.3); Red Blood Count 3.96 M/uL (4.70-6.10); White Blood Count 6.59 K/ul (4.8-10.8)
[2024-11-05 08:19] LABS: BUN Creatinine Ratio 18.7 (10-20); Calcium 9.9 mg/dl (8.6-10.3); Creatinine Clr Calc Pharmacy 18.4 ml/min
[2024-11-05 08:29] LABS: INR 2.2 (0.9-1.1); Prothrombin Time 22.6 Seconds (9.0-12.0)
--- NOTE | 2024-11-05 10:38 | Podiatry Progress Note ---
Date of Service November 05, 2024 Assessment & Plan (1) Diabetic foot infection: (2) Toe ulcer: (3) Status post partial amputation of foot: (4) Skin ulcer of left foot including toes with fat layer exposed: Plan Examined and evaluated. - Toe redressed with optifoam - Mupirocin ordered for daily dressing changes/wound care by nursing. - Can likely d/c home with 2 weeks oral antibiotics and close outpatient follow- up, assuming otherwise medically stable - Continue mupirocin after d/c home as well Admission and Anticipated Discharge Date Admission Date: November 03, 2024 Subjective Seen at bedside without complaints. He is resting well. Easily arousable. He may be slightly confused as he states he has not had an MRI since yesterday but did have 1 performed. Otherwise, denies any new foot and ankle concerns and is feeling well. Review of Systems Constitutional: + weakness; no fever, no chills and no f atigue Eyes: no problem reported Ear, Nose, Mouth, Throat: no problem reported Respiratory: no problem reported Cardiovascular: + edema; no problem reported Gastrointestinal: no nausea, no vomiting and no problem reported Musculoskeletal: no problem reported Integumentary: + changing lesions, + skin ulcer, + woun ds and + erythema Neurologic: + loss of sensation, + numbness and + pa resthesia; no generalized weakness Psychiatric: no problem reported Physical Exam Physical Exam: Lower extremity focused exam: DP/PT pulses non palpable. Diffuse edema noted to bilateral lower extremity. Well healed amputation noted to the left second toe. Superficial ulceration noted to the left fourth toe, overlying the PIPJ. Upon sharp debridement at bedside, No deep extension noted. No tracking to the joint or along the extensor apparatus noted. No purulence noted. Wound measures 0.3 x 0.2 x 0.1 cm. Toe is edematous and erythematous, though no ascending cellulitis noted. CFT is brisk to the digits. No pain on palpation of the ulcer or with debridement. 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 Right lower extremity has a wound to the proximal calf, well-dressed, and left intact at this visit. Constitutional: WD/WN, vitals as above + ill appearing and + obese Eyes: PERRL, conjunctivae normal, anicteric sclerae ENMT: external ear and nose normal, oropharynx normal Neck: trachea midline, no thyromegaly normal visual inspection Respiratory: normal respiratory effort; no respiratory distress Cardiovascular: Rate/Rhythm: regular rate and regular rhythm Vessels: + posterior tibial pulses abnormal and + dorsalis pedis pulses abnormal Extremities: normal capillary refill and + edema Chest (Breasts): Chest: normal inspection of chest Gastrointestinal (Abdomen): Inspection/Auscultation: abdomen normal to inspection Percussion/Palpation: + abdomen tender and abdomen soft Musculoskeletal: no cyanosis or clubbing, extremities motor strength 5/5 Head/Neck/Chest: normocephalic and head atraumatic Extremities: extremities normal to inspection Ankle: + skin erythema and + limited ROM of ankle; no ecchymosis Skin: + ulcer, + skin tightening, + wound, + s kin atrophy, + erythema and + nails dystrophic Neurologic: moves all extremities and awake; + abnormal sensation to monofilament and no focal motor deficits Psychiatric: A+Ox3, euthymic affect Orientation: alert and oriented x 3 Speech: normal rate/rhythm/volume of speech Lymphatic: + lymphedema Results & Data Results & Data Vital Signs (Past 12 Hours) Vital Signs Temp Pulse Pulse Resp BP Pulse Ox O2 Del Method 11/05/24 07:42 36.7 C 70 20 148/87 H 95 Room Air 11/05/24 07:30 Room Air 11/05/24 07:15 65 11/05/24 03:04 61 11/05/24 02:24 36.7 C 72 18 156/87 H 99 Nasal Cannula 11/04/24 23:15 Nasal Cannula 11/04/24 23:00 36.7 C 67 18 143/82 H 99 Nasal Cannula O2 Flow Rate 11/05/24 07:42 11/05/24 07:30 11/05/24 07:15 11/05/24 03:04 11/05/24 02:24 2 11/04/24 23:15 2 11/04/24 23:00 2 Diagnostic Findings MRI reveals edema of the forefoot with no drainable abscess or bone involvement. No evidence of acute osteomyelitis. (2) Toe ulcer Laterality: left Non-pressure ulcer stage: with fat layer exposed Qualified Code(s): L97.522 - Non-pressure chronic ulcer of other part of left foot with fat layer exposed (3) Status post partial amputation of foot Laterality: left Qualified Code(s): Z89.432 - Acquired absence of left foot
[2024-11-05] MEDS: MUPIROCIN 2% OINT 22 GM TUBE EXT SCH (13:09)
--- NOTE | 2024-11-05 17:54 | Hospitalist Progress Note ---
Date of Service November 05, 2024 Assessment & Plan (1) Toe ulcer: (2) Cellulitis of fourth toe, left: (3) Chronic venous insufficiency: (4) Diabetic peripheral neuropathy associated with type 2 diabetes mellitus: (5) CKD (chronic kidney disease), stage IV: (6) Atrial fibrillation: (7) Hypertension: (8) Chronic heart failure with preserved ejection fraction (HFpEF): (9) COPD (chronic obstructive pulmonary disease): (10) CAD (coronary artery disease): (11) Hypothyroidism: (12) Chronic anemia: (13) ABRAN (obstructive sleep apnea): Plan Mr. Trejo is an 84 year old male with PMH HTN, atrial fibrillation anticoagulated on warfarin, chronic HFpEF, DM II, previously CKD V on HD, current CKD IV no longer on HD, CAD, COPD, hypothyroidism, chronic thrombocytopenia, BENI, ABRAN on 2L oxygen at bedtime, gout, history amputation left second toe presented to ER with c/o left 4th toe edema, erythema and tenderness x 3 days. He was evaluated by Podiatry. MRI did not reveal osteomyelitis. Plan for 2 weeks po abx and discharge tomorrow. #Diabetic foot infection #Toe ulcer No leukocytosis. Lactate: 2.4, procalcitonin: 0.06, CRP: 2.7, ESR: 42 Left foot x-ray: No signs of osteomyelitis Prelim blood culture 1/2 bottles growing gram positive cocci clusters, wound cx pending Continue empiric Cefepime, daptomycin Podiatry consult: mri negative for osteo Transition to doxy and augmentin in am for 2 weeks # Diabetic peripheral neuropathy associated with type 2 diabetes mellitus: A1c: 7.9 on 09/27/2024 Hold home oral glycemic agents NovoLog sliding scale per protocol #CKD (chronic kidney disease), stage IV: Previous CKD V and was on dialysis. Current CKD IV No longer on HD Cr: 3.4 -> 3.6 today (Baseline Cr: 2.9-4.1 over past year, generally low 3s) Evaluated by nephro. Per Dr. Viera, at Cr baseline. Okay with continuing home Torsemide, losartan Daily standing weight - accurate I&Os needed Dialysis diet with 1.5 L daily FR Daily BMP # Atrial fibrillation: Chronic atrial fibrillation anticoagulated on warfarin Unlikely for OR per podiatry above but will hold afternoon dose of Coumadin with INR 3.0 Recheck INR in AM #Hypertension: Continue losartan, metoprolol succinate # Chronic heart failure with preserved ejection fraction (HFpEF): Continue Torsemide as above # COPD (chronic obstructive pulmonary disease): Continue home inhalers, Duonebs QIDR PRN SOB or wheezing #CAD (coronary artery disease): Continue isosorbide, metoprolol succinate # Hypothyroidism: Continue levothyroxine #Chronic anemia: Chronic thrombocytopenia, plts at baseline Daily CBC #ABRAN (obstructive sleep apnea): Continue home O2 HS DVT Prophylaxis: resume coumadin per INR, if patient does not require OR PCP: [facility] Dispo: Admitted to [facility] Code: DNR/DNI as per discussion with pt Admission and Anticipated Discharge Date Admission Date: November 03, 2024 Subjective NAEO reports feeling "fine" and ready to go home Physical Exam Constitutional: WD/WN, vitals as above Respiratory: normal respiratory effort, lungs clear to auscultation Cardiovascular: irregularly irregular Skin: kerlex on skin wounds Results & Data Results & Data Vital Signs (Past 12 Hours) Vital Signs Temp Pulse Pulse Resp BP Pulse Ox O2 Del Method 11/05/24 16:20 11/05/24 15:29 36.7 C 71 20 145/75 H 93 Room Air 11/05/24 14:15 74 11/05/24 11:12 36.6 C 67 18 131/66 95 Room Air 11/05/24 07:42 36.7 C 70 20 148/87 H 95 Room Air 11/05/24 07:30 Room Air 11/05/24 07:15 65 O2 Del Method 11/05/24 16:20 Room Air 11/05/24 15:29 11/05/24 14:15 11/05/24 11:12 11/05/24 07:42 11/05/24 07:30 11/05/24 07:15 Laboratory Results Short CBC 11/05/24 Range/Units 07:29 WBC 6.59 (4.8-10.8) K/ul Hgb 10.9 L (14.0-18.0) g/dl Hct 36.2 L (42.0-52.0) % Plt Count 101 L (130-400) K/uL BMP 11/05/24 07:29 Sodium 139 Potassium 4.0 Chloride 103 Carbon Dioxide 27 BUN 67 H Creatinine 3.58 H Glucose 100 H Calcium 9.9 Medications Administered Home Medications Medication Instructions Recorded Confirmed Last Taken ascorbic acid (vitamin C) 500 mg 500 mg PO QAM 07/23/21 11/03/24 05/19/23 11:00 tablet (Vitamin C) gabapentin 100 mg capsule 100 mg PO BID 07/23/21 11/03/24 05/20/23 08:00 glipizide 5 mg tablet 5 mg PO DAILY 07/23/21 11/03/24 11/03/24 isosorbide dinitrate 20 mg tablet 20 mg PO BID 07/23/21 11/03/24 11/03/24 levothyroxine 88 mcg tablet 88 mcg PO QAM 07/23/21 11/03/24 11/03/24 metoprolol succinate 100 mg 100 mg PO BID 07/23/21 11/03/24 11/03/24 tablet,extended release 24 hr multivitamin 1 tab PO QAM 07/23/21 11/03/24 05/19/23 11:00 pantoprazole 40 mg tablet,delayed 40 mg PO QA 07/23/21 11/03/24 11/03/24 release tamsulosin 0.4 mg capsule 0.4 mg PO QAM 07/23/21 11/03/24 11/03/24 warfarin 2.5 mg tablet 2.5 mg PO UD 07/23/21 11/03/24 11/03/24 torsemide 100 mg tablet 200 mg PO BID 09/12/21 11/03/24 11/03/24 fluticasone furoate 100 1 inh inhalation DAILY 09/02/23 11/03/24 Unknown mcg-vilanterol 25 mcg/dose inhalation powder (Breo Ellipta) albuterol sulfate 0.63 mg/3 mL 0.63 mg inhalation Q6H PRN 11/03/24 11/03/24 Unknown solution for nebulization Shortness Of Breath Or Wheezing allopurinol 100 mg tablet 50 mg PO DAILY 11/03/24 11/03/24 Unknown cholecalciferol (vitamin D3) 25 25 mcg PO DAILY 11/03/24 11/03/24 11/03/24 mcg (1,000 unit) tablet losartan 25 mg tablet 25 mg PO DAILY 11/03/24 11/03/24 11/03/24 Active Medications Generic Name Dose Route Start Last Admin Trade Name Freq PRN Reason Stop Dose Admin Allopurinol 50 mg 11/04/24 09:00 11/05/24 08:29 Allopurinol 100 Mg Tab PO 12/04/24 08:59 50 mg DAILY ASIM Administration Fluticasone/Vilanterol 1 puffs 11/04/24 09:00 11/05/24 08:27 Fluticasone/Vilanterol 100/25mcg 14 Puffs/Inhaler INH 12/04/24 08:59 1 puffs DAILY ASIM Administration Gabapentin 100 mg 11/03/24 21:00 11/05/24 08:29 Gabapentin 100 Mg Cap PO 12/03/24 20:59 100 mg BID ASIM Administration Cefepime HCl 1,000 mg in 10 mls @ 5 mls/min 11/04/24 00:00 11/05/24 11:14 Maxipime 2000mg IV 11/11/24 00:00 5 mls/min Q12H ASIM Administration Protocol Daptomycin 325 mg/ Syringe 6.5 mls @ 3.25 mls/min 11/04/24 09:00 11/04/24 09:04 IV 11/11/24 08:59 3.25 mls/min Q48H ASIM Administration Protocol Insulin Aspart 0 units 11/03/24 16:30 11/05/24 17:50 Insulin Aspart Per Unit Charge SC 12/03/24 16:29 6 units ACHS ASIM Administration Isosorbide Dinitrate 20 mg 11/03/24 17:00 11/05/24 11:13 Isosorbide Dinitrate 20 Mg Tab PO 12/03/24 16:59 20 mg BID@0700,1200 ASIM Administration Levothyroxine Sodium 88 mcg 11/04/24 06:30 11/05/24 05:59 Levothyroxine Sodium 88 Mcg Tablet PO 12/04/24 06:29 88 mcg DAILYBB ASIM Administration Losartan Potassium 25 mg 11/04/24 09:00 11/05/24 08:29 Losartan Potassium 25 Mg Tab PO 12/04/24 08:59 25 mg DAILY ASIM Administration Metoprolol Succinate 100 mg 11/03/24 21:00 11/05/24 08:28 Metoprolol Succ 50mg Ext Rel Tab PO 12/03/24 20:59 100 mg BID ASIM Administration Mupirocin 1 appln 11/05/24 10:45 11/05/24 13:09 Mupirocin 2% Oint 22 Gm Tube EXT 12/05/24 10:44 1 appln DAILY ASIM Administration Pantoprazole Sodium 40 mg 11/04/24 09:00 11/05/24 08:28 Pantoprazole 40 Mg Tab PO 12/04/24 08:59 40 mg QAM ASIM Administration Tamsulosin HCl 0.4 mg 11/04/24 09:00 11/05/24 08:28 Tamsulosin Hcl 0.4 Mg Cap PO 12/04/24 08:59 0.4 mg QAM ASIM Administration Torsemide 200 mg 11/03/24 17:00 11/05/24 17:10 Torsemide 100 Mg Tab PO 12/03/24 16:59 200 mg [id number] ASIM Administration Vitamin D 25 mcg 11/04/24 09:00 11/05/24 08:28 Cholecalciferol 25 Mcg (1000 Units) Tab PO 12/04/24 08:59 25 mcg DAILY ASIM Administration (1) Toe ulcer Laterality: left Non-pressure ulcer stage: with fat layer exposed Qualified Code(s): L97.522 - Non-pressure chronic ulcer of other part of left foot with fat layer exposed
--- OUTSIDE RECORDS SUMMARY | 2024-11-05 21:43 | External Medical Summary | Summary of Care ---
Author Name Unknown Organization [facility] Address [address] [place] [address] Phone [phone] Care Team Providers Care Hydraulic Engineer Name Role Phone Suman Simpson MD Primary Care Provider [phone] Reason for Visit * Reason Onset Date Comments Order Request 10/25/2024 [facility] order Encounter Details Date Type Department Care Team (Late st Contact Info) Description 10/25/2024 Telephone Pulmonary Medicine, [facility] [address] [facility] [place] [id number] Bradley Yepez MD [address] [facility] [place] [address] Order Request ([facility] order) Allergies Active Allergy Reactions Criticality Noted Date Comments Metolazone 07/29/2021 Severe HYponatremia Morphine Sulfate Other (Please comment) 006 hallucinate Oxycodone Other (Please comment) 07/07/2006 Hallucinate Penicillins 07/21/2011 Hallucinate documented as of this encounter (statuses as of 10/25/2024) Medications VITAMIN C 500 MG PO TABS one tablet by mouth daily Active MULTIVITAL PO TABS one tablet by mouth daily Active Probiotic Daily Oral Capsule Take 1 Capsule by mouth in the morning. Active Vitamin-B Complex Oral Tablet Take 1 Tablet by mouth in the morning. Active Allopurinol 100 MG Oral Tablet (Zyloprim)Indicat ions:Gout, unspecified cause, unspecified chronicity, unspecified site Take 1/2 tab by mouth daily 45 Tablet 03/07/20 24 Active Bisacodyl 5 MG Oral Tablet Delayed Release (Dulcolax)Indicat ions:Constipation , unspecified constipation type Take 1 Tablet by mouth daily as needed for Constipation. May take 1 or two tablets 30 Tablet 03/07/20 24 Active Isosorbide Dinitrate 20 MG Oral Tablet (Isordil)Indicati ons:HTN, goal below 140/90 TAKE ONE TABLET BY MOUTH EVERY MORNING AND TAKE ONE TABLET BY MOUTH BEFORE BEDTIME 180 Tablet 03/07/20 24 Active Levothyroxine Sodium 88 MCG Oral Tablet (Levoxyl)Indicati ons:Other specified hypothyroidism TAKE ONE TABLET BY MOUTH EVERY MORNING AT LEAST 30 MINUTES PRIOR TO BREAKFAST OR OTHER MEDICATIONS 90 Tablet 03/07/20 24 Active Losartan Potassium 25 MG Oral Tablet (Cozaar) Take 1 Tablet by mouth in the morning. 90 Tablet 03/07/20 24 Active OneTouch Verio In Vitro Strip (Glucose Blood)Indications :Type 2 diabetes mellitus with hemoglobin A1c goal of less than 8.0% ([facility]) Use up to 4 times a day E11.9 100 Strip 03/07/20 24 Active Pantoprazole Sodium 40 MG Oral Tablet Delayed Release (Protonix)Indicat ions:Gastroesopha geal reflux disease without esophagitis TAKE ONE TABLET BY MOUTH EVERY DAY 30 MINUTES PRIOR TO EATING 90 Tablet 03/07/20 24 Active Polyethylene Glycol 3350 17 GM Oral Packet (Miralax)Indicati ons:Constipation, unspecified constipation type Take 1 Packet by mouth in the morning. 14 Each 03/07/20 Active Additional Information Patient not taking.Reported on 10/24/2024 Sennosides-Docusa te Sodium 8.6-50 MG Oral Tablet (Senokot-S)Indica tions:Constipatio n, unspecified constipation type Take 1 Tablet by mouth at bedtime as needed for Constipation. May increase to 2 as needed 30 Tablet 03/07/20 24 Active Tamsulosin HCl 0.4 MG Oral Capsule (Flomax)Indicatio ns:BPH with obstruction/lower urinary tract symptoms Take 1 Capsule by mouth in the morning. 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 360 Tablet 3 05/13/20 24 Active Warfarin Sodium 2.5 MG Oral Tablet (Jantoven) TAKE 1-2 TABLETS BY MOUTH DAILY. According to anticoagulation clinic 180 Tablet 3 05/25/20 24 Active Multiple Vitamins Oral Tablet Take 1 Tablet by mouth in the morning. 09/01/20 23 Active Silver sulfADIAZINE 1 % External Cream (Silvadene)Indica tions:Venous stasis dermatitis Apply topically to affected area daily. 85 g 1 06/21/20 24 Active Additional Information Patient not taking.Reported on 10/24/2024 Ondansetron 4 MG Oral Tablet Disintegrating (Zofran)Indicatio ns:Nausea Place 1 Tablet on tongue every 8 hours as needed for Nausea. dissolve on tongue. 20 Tablet 08/10/20 Active Additional Information Patient not taking.Reported on 10/24/2024 Benzonatate 100 MG Oral CapsuleIndication s:COPD, group B, by GOLD 2017 classification ([facility]LY [facility]) Take 1 Capsule by mouth 3 times a day as needed for Cough. 30 Capsule 1 08/23/20 24 Active Vitamin D3 25 MCG (1000 UT) Oral Tablet (Vitamin D3) Take 1 Tablet by mouth in the morning. 30 Tablet 5 08/24/20 24 Active Breo Ellipta 100-25 MCG/ACT Inhalation Aerosol Powder Breath ActivatedIndicati ons:COPD, group B, by GOLD 2017 classification ([facility]) Inhale 1 Puff by mouth in the morning. 180 Each 3 08/29/20 24 Active Metoprolol Succinate ER 100 MG Oral Tablet Extended Release 24 Hour (toPROL XL)Indications:HT N, goal below 140/90 TAKE ONE TABLET BY MOUTH EVERY MORNING AND AT BEDTIME 180 Tablet 1 09/05/20 24 Active glipiZIDE 5 MG Oral Tablet (Glucotrol)Indica tions:Type 2 diabetes mellitus with hemoglobin A1c goal of less than 8.0% ([facility]) Take 1 Tablet by mouth in the morning. 90 Tablet 1 09/05/20 24 Active Gabapentin 100 MG Oral Capsule (Neurontin) TAKE ONE CAPSULE BY MOUTH TWICE A DAY 180 Capsule 1 09/14/20 24 Active oxygen IN GAS Use 2.5 L/min(Oxygen) as directed at bedtime. Active Full Kit Nebulizer Set Use with Nebulizer Medication EVERY SIX HOURS WHILE AWAKE as directed. Dx Code: J44.9 1 Each 3 10/24/20 Active Albuterol Sulfate 0.63 MG/3ML Inhalation Nebulization Solution (Accuneb) Inhale 1 Vial via nebulizer every 6 hours as needed for Wheezing or Shortness of Breath. 360 mL 10/24/20 024 Active Hospital, Clinic, or Other Facility Administered Medication Ordered Dose Route Frequency Start Date End Date Status Albuterol Sulfate (Proventil) (5 MG/ML) 0.5% *conc* inhalation solution 2.5 mgIndications:COPD, group B, by GOLD 2017 classification ([facility]),Dyspnea and respiratory abnormalities 2.5 mg NEBULIZER PRN 08/29/2024 08/29/2025 Active Albuterol Sulfate (Proventil) (2.5 MG/3ML) 0.083% inhalation solution 2.5 mgIndications:COPD, group B, by GOLD 2017 classification ([facility]),Dyspnea and respiratory abnormalities 2.5 mg NEBULIZER PRN 08/29/2024 08/29/2025 Active documented as of this encounter (statuses as of 10/25/2024) Active Problems Problem Noted Date Diagnosed Date Anemia in stage 4 chronic kidney disease 024 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) 01/19/2024 Secondary hyperparathyroidism of renal origin Renal osteodystrophy 01/19/2024 Acquired absence of other left toe(s) 09/18/2023 Assessment & Plan (09/21/2023 7:09 PM EDT): -Metatarsal 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 09/18/2023 Assessment & Plan (09/21/2023 7:09 PM EDT): -, , Thursday COPD, group B, by GOLD 2017 classification 08/12 Rheumatoid arthritis 02/18/2023 Other specified hypothyroidism 01/27/2023 Diabetic neuropathy 07/30/2022 Other iron deficiency anemias 02/03/2022 End stage renal disease 12/27/2021 Thrombocytopenia 09/13/2021 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 08/08/2021 Assessment & Plan (09/21/2023 7:02 PM EDT): "RED FLAG" HF Symptoms: Leg Swelling (Examples: "I can't wear certain socks or shoes", "My pants feel tight") Abdominal Bloating (Examples: "I can't wear certain pants", "My belly feels hard", "I look ") Increased dyspnea on exertion (Example: "I can't walk to the kitchen or up the stairs") Increased shortness of breath at rest (Example: "I struggle to breathe even when watching TV") Orthopnea (Examples: "I have to sleep with more pillows than usual", "I sleep worse than normal") Medication Regimen: Beta Demario Therapy: Metoprolol Succinate (ER) YANELIS Inhibitor/ARB Therapy: Losartan Diuretic therapy: Torsemide Self - Management Plan Other/Additional Comments: Should be established by patient and cardiology Exacerbation Plan Anticipated IV Lasix dose: 200 mg Pro-BNP Chest X-Ray EKG Additional Comments: Most recent ECHO with EF of 55%, valvular disease present with left ventricular diastolic dysfunction. Continues to follow with cardiology Encouraged cardiac prudent diet, daily weights, and low sodium, fluid restricted diet. Current CKD Stage: ESRD on dialysis "RED FLAG" symptoms: NO IDENTIFIED SYMPTOMS CKD Complications: CAD Heart Failure HTN Anemia Additional Comments Currently getting HD on Assessment & Plan (01/09/2022 2:18 PM EST): [facility] Triage Call: Reviewed case w/ Dr Jaramillo - pt clearly sounds volume overloaded despite weight trending down. Has had life-threatening hypoNa+ from Metolazone and would benefit from home evaluation and most likely IV Lasix. Will work on coordinating a visit within 24 hours given stable vital signs. 01/09/2022 Hyponatremia 08/08/2021 Type 2 diabetes mellitus wit h stage 5 chronic kidney disease not on chronic dialysis, without long-term current use of insulin 06/26/2021 Atrial fibrillation, unspecified type 06/28/2020 Assessment & Plan (09/21/2023 7:04 PM EDT): -Warfarin for stroke prophylaxis -Metoprolol for rate control Diabetes mellitus with nephropathy 06/06/2019 Pulmonary HTN 06/06/2019 HTN, goal below 140/90 04/21/2014 Type 2 diabetes mellitus wit h hemoglobin A1c goal of less than 8.0% 11/07/2013 Overview (03/27/2016): ICD-10 update of inactive term History of rheumatoid arthritis 06/24/2013 ABRAN (obstructive sleep apnea) 05/24/2013 Overview (04/10/2014): RDI 25.4 Low oxygen saturation 80%. Pt spent 22 minutes with oxygen saturation below 88%. Does not wear CPAP GUALLPA (dyspnea on exertion) 06/24/2010 Overview (09/22/2017): ICD-10 update of inactive term Deviated nasal septum 06/24/2010 Degeneration of cervical intervertebral disc Gastroesophageal reflux disease without esophagi tis 03/28/2010 Assessment & Plan (09/21/2023 7:07 PM EDT): -Appears clinically stable -Pantoprazole continued History of colonic polyps 01/08/2010 Overview (01/11/2010): adenomatous tissue--repeat 5 years Gouty arthropathy 09/13/2009 Overview (09/01/2022): ICD-9 Code Update ICD-10 update of inactive term Advanced care planning/counseling discussion Knee joint replacement status 05/27/2006 Diaphragmatic hernia Nephrotic range proteinuria Sensorineural hearing loss, bilateral documented as of this encounter (statuses as of 10/25/2024) Resolved Problems Problem Noted Date Diagnosed Date Resolved Date Hypertensive chronic kidney disease with stage 5 chronic kidney disease or end stage renal disease 01/27/2023 08/24/2023 Atherosclerosis of 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 09/13/2021 01/19/2024 JESSICA (renal osteodystrophy) 06/26/2021 0 03/02/2024 Overview (03/02/2024): Duplicated on pl CKD (chronic kidney disease) stage 5, GFR less than 15 ml/min 06/28/2020 06/26/2021 Hypertensive heart and kidne y disease without heart failure and with stage 4 chronic kidney disease 06/06/2019 01/27/2023 Diabetes mellitus with stage 4 chronic kidney disease 05/31/2019 09/13/2021 Hyperparathyroidism, secondary renal 09/27/2018 03/02/2024 Overview (03/02/2024): Duplicated on pl Kidney disease, chronic, sta ge IV (GFR 15-29 ml/min) 09/07/2018 06/09/2019 Obstructive sleep apnea syndrome 12/19/2013 08/27/2017 Daytime somnolence 12/19/2013 7 High triglycerides 09/29/2011 3 Overview (02/03/2023): DUPLICATE Type 2 diabetes mellitus wit h hemoglobin A1c goal of less than 7.0% 07/16/2011 11/07/2013 Overview (03/25/2016): ICD-10 update of inactive term Kidney disease, chronic, sta ge III (GFR 30-59 ml/min) 01/28/2011 09/07/2018 Hypothyroidism 08/24/2010 03/02/2024 Overview (03/02/2024): More specified condition on pl HTN, goal below 140/90 08/24/201001/04 Chronic otitis externa 06/24/201008/27 Hypertrophy of nasal turbinates 06/24/2010 09/15/2021 Esophageal reflux 06/24/2010 08/27/2017 Irritable bowel syndrome 06/13/2010 Abnormal levels of other serum enzymes 06/13/2010 08/27/2017 Overview (08/31/2017): ICD-10 update of inactive term Abdominal pain, generalized 03/28/2010 08/27/2017 Abnormal results of liver function studies 03/28/2010 08/27/2017 Knee joint replacement status 07/17/2006 01/04/2009 Overview (01/04/2009): Resolved per Duplicate Protocol #2. Type 2 diabetes mellitus wit h hemoglobin A1c goal of less than 7.0% 02/20/2005 03/27/2009 Overview (03/25/2016): ICD-10 update of inactive term Gouty arthropathy 12/23/2002 09/13/2009 Overview (03/04/2016): ICD-9 Code Update ICD-10 update of inactive term CHRONIC RENAL FAILURE 12/23/20022010 HYPER RENAL DISEASE,MALIGN;W/O RENAL FAILURE 0 08/27/2017 Arthritis, rheumatoid 2012 Esophagitis 08/27/2017 Overview (08/31/2017): ICD-10 update of inactive term Insomnia 08/27/2017 Overview (08/31/2017): ICD-10 update of inactive term Presbyacusis 08/27/2017 Other acute otitis externa 0 01/25/2009 Overview (01/25/2009): Resolved per Benign Acute Dxs Protocol #3 Allergic rhinitis 06/06/2019 NON ALLERGIC RHINITIS 2020 Chronic pharyngitis 09/15/20 21 Chronic laryngitis documented as of this encounter (statuses as of 10/25/2024) Immunizations Name Administration Dates Next Due COVID-19 mRNA, LNP-s, No Pre serve, 2-Dose Series ([email or web address]) 10/20/2021,02/28/2021,02/07/2021 COVID-19, MRNA-LNP, PF, 30 M CG/0.3 mL, 12 YRS AND ABOVE, IM ([employer]Comirnat) 10/13/2023 Covid-19, Mrna, Lnp-s, Pf, B ivalent, 30 Mcg, IM, 12 yrs and above (Pfizer) 09/12/2022 HEPATITIS B VACCINE, RECOMB, 20 MCG/ML, ADULT (HEPLISAV-B) 09/19/2023 Pneumococcal Conjugate Vacc, 13 Valent (Prevnar) 08/02/2015 Pneumococcal Polysaccharide PPV23 (Pneumovax) 08/31/2012 Seasonal Influenza Vac., MDV , IM, 0.5 mL (Fluzone) 08/26/2016,08/31/2012,09/12/2011,09/05,12/18/2009,10/09/2008,09/15/2007 ,09/22/2006 Seasonal Influenza Virus Vac cine, Unspecified Formulation 09/10/2020,12/01/2019,08/26/2018,08/27,08/26/2016,08/31/2012,09/12/2011 ,09/05/2010,12/18/2009,10/09/2008,08/30,09/22/2006 Seasonal Influenza, High Dos e, Trivalent, PF, IM (Fluzone HD) 09/02/2024 Seasonal Influenza, PF, 6 M & above, IM , (FluLaval or Fluzone) 09/10/2020,08/26/2018,08/27/2017 Seasonal Influenza, Quadriva lent Hd (Fluzone Hd) 09/02/2024,08/12/2023,09/19/2022,09/12 Seasonal Influenza, Quadriva lent Hd, 65+ Yrs 08/12/2023,09/19/2022,09/12/2021 Seasonal Influenza, Trivalen t, Adjuvanted, 65+ YRS, PF, (Fluad) 12/01/2019 TD, Preservative Free 01/13/2023 TDAP (age 10 and older)(Boostrix) 01/13/2023,03/2013 Varicella Zoster Vaccine (Adult) 01/28/2013 documented as of this encounter Social History Tobacco Use Types Packs/Day Years Used Date Smoking Tobacco: Never Passive Smoke Exposure: Past Smokeless Tobacco: Never Alcohol Use Standard Drinks/Week Comments Never 0 (1 standard drink = 0.6 oz pur e alcohol) PHQ-2 Answer Date Recorded PHQ Adult Total Score 0 06/21/2024 Hunger Vital Sign Answer Date Recorded Worried About Running Out of Food in the Last Ye ar Never true 12/01/2019 Ran Out of Food in the Last Year Never true 12/01/2019 Sex and Gender Information Value Date Recorded Sex Assigned at Male 12/01/2019 10:59 AM EST Legal Sex Male 7:07 AM EST Gender Identity Male 12/01/2019 10:59 AM EST Sexual Orientation Straight 06/06/2019 10 :20 AM EDT Occupation Industry Job Start Date Job End Date not currently employed Not on file Not on file Not o n file documented as of this encounter Functional Status * Are you deaf or do you have serious difficulty hearing? Answer Date of Assessment Author No 02/09/2019 3:39 PM EDT Sree Bishop RN * Are you blind or do you have serious difficulty seeing, even when wearing glasses? Answer Date of Assessment Author No 02/09/2019 3:39 PM EDT Sree Bishop RN * Do you have serious difficulty walking or climbing stairs? (5 years old or older) Answer Date of Assessment Author No 02/09/2019 3:39 PM Sree Cunningham RN * Do you have difficulty dressing or bathing? (5 years old or older) Answer Date of Assessment Author No 02/09/2019 3:39 PM EDT Sree Bishop RN * Because of a physical, mental, or emotional condition, do you have difficulty doing errands alone such as visiting a doctors office or shopping? (15 years old or older) Answer Date of Assessment Author No 02/09/2019 3:39 PM Sree Cunningham RN documented as of this encounter Mental Status * Because of a physical, mental, or emotional condition, do you have serious difficulty concentrating, remembering, or making decisions? (5 years old or older) Answer Entry Date Author No 02/09/2019 3:39 PM Sree Cunningham RN documented in this encounter Miscellaneous Notes * Telephone Encounter - Raven Lane LPN - 10/25/2024 6:29 AM EST Neb order submitted to , to go to [facility] in [place]. documented in this encounter Plan of Treatment Upcoming Encounters Date Type Department Care Team (Late st Contact Info) Description 11/18/2024 2:30 PM EST Anticoagulation Pharmacy, Alex [facility]av[facility] [address] [place] [phone] [facility] [address] [facility] [address] 12/02/2024 2:30 PM EST Office Visit Interventional Pain Center, [facility] [address] [facility] [place] [address] Isis Mcrae PA-C [address] [facility] [place] [address] 12/22/2024 3:00 PM EST Office Visit Cardiology, [facility] [address] [facility] [place] [address] Rosetta Velasco, DIETARY SERVICE AIDE [address] [place] [address] 03/13/2025 3:00 PM EDT Office Visit Nephrology, [facility] [address] [facility] [place], [place] [address] David Jaramillo MD [address] [facility] [address] [place] [address] 04/04/2025 2:40 PM EDT Office Visit Family Practice, [facility] [address] [facility] [place] [phone] Suman Simpson MD [address] [facility] [place] [place] [address] 04/26/2025 3:00 PM EDT Office Visit Pulmonary Medicine, [facility] [address] [facility] [place] [address] Bradley Yepez MD [address] [place] [address] Health Maintenance Due Date Last Done Comments Adult Wellness Visit 2007 COVID-19 Vaccine (6 - 2024-25 season) 2024 10/13/2023, 09/12/2022, 10/20/2021, Additional history exists HbA1c 03/28/2025 09/27/2024, 04/0 06/2024, 01/13/2024, Additional history exists Diabetic Eye Exam 04/01/2025 04/01/2024, , 03/30/2023, Additional history exists Depression Screening 06/21/2025 06/21/2024 Diabetic Foot Exam 06/21/2025 06/21/2024, 0 04/16/2023, 06/14/2020, Additional history exists TSH 06/21/2025 06/21/2024, 04/30, 12/27/2021, Additional history exists Zoster Vaccines (2 of 3) 06/21/2025 01/28/2013 Pos tponed from 03/25/2013 (Patient Declined After Education) O2 ASSESSMENT COMPLETED IN PAST YEAR FOR COPD 10/24/2025 10/24/2024 DTap/Tdap Vaccines (4 - Td or Tdap) 01/13/2033 01/13/2023, 01/13/2023, 01/04/2013, Additional history exists Pneumococcal Vaccine: 65+ Years Completed 08/02/2015, 08/31/2012, 10/25/2002 Alpha-1 Antitrypsin Completed 09/06/2018 RETIRED - COLONOSCOPY-EVERY 5 YRS AGES 18-100 Discontinued 09/04/2023, 01/08/2010 Hepatitis B Vaccine Discontinued 09/19/2023 Nephrology Referral Discontinued 07/26/2024, 01/24/2014, 07/16/2011, Additional history exists Influenza Vaccine (FLU shot) Completed 09/02/2024, 09/02/2024, 08/12/2023, Additional history exists HPV (Gardasil) Vaccine Aged Out No lo nger eligible based on patient's age to complete this topic MENINGOCOCCAL (MENACTRA/MENVEO) Aged Out No longer eligible based on patient's age to complete this topic documented as of this encounter Medical Devices Not on filedocumented as of this encounter Advance Directives * Full Code (Latest Code Status on File) Date Activated Date Inactivated Comments 02/09/2019 1:09 PM 02/10/2019 2:36 PM This order r eflects the patients wishes and were consensually agreed upon. * Full Code Date Activated Date Inactivated Comments 03/28/2014 1:49 PM 03/29/2014 2:58 PM This order r eflects the patients wishes and were consensually agreed upon. Healthcare Agents on File Name Relationship Healthcare Agent [facility] Communication Latia Trejo Spouse Health Care Agent Care Teams Hydraulic Engineer Relationship Specialty Start Date End Date Suman Simpson MD [address], [place] [phone] PCP - General 01/26/03 documented as of this encounter
--- OUTSIDE RECORDS SUMMARY | 2024-11-05 21:43 | External Medical Summary | Summary of Care ---
Author Name Unknown Organization [facility] Address [address] [place] [address] Phone [phone] Care Team Providers Care [employer] Name Role Phone Suman Simpson MD Primary Care Provider [phone]- [phone] Reason for Visit * Reason Comments Dosage Adjustment In Person (Anticoag Cl inic) Encounter Details Date Type Department Care Team (Latest Contact Info) Description 10/20/2024 11:20 AM EST Anticoagulation Pharmacy, [place] [address] [place] [address] [facility] [address] [place] [address] Anticoagulation management encounter*; Atrial fibrillation, unspecified type (HCC) Allergies Active Allergy Reactions Criticality Noted Date Comments Metolazone 07/29/2021 Severe HYponatremia Morphine Sulfate Other (Please comment) 006 hallucinate Oxycodone Other (Please comment) 07/07/2006 Hallucinate Penicillins 07/21/2011 Hallucinate documented as of this encounter (statuses as of 10/20/2024) Medications VITAMIN C 500 MG PO TABS [...] hemoglobin A1c goal of less than 8.0% ([facility]) Use up to 4 times a day [...] Active Additional Information Patient not taking.Reported on 08/10/2024 Sennosides-Docusa te Sodium 8.6-50 MG Oral Tablet [...] chronic kidney disease not on chronic dialysis ([facility]) Take 2 tablets in AM and 2 [...] Active Additional Information Patient not taking.Reported on 08/10/2024 Ondansetron 4 MG Oral Tablet Disintegrating (Zofran)Indicatio ns:Nausea Place 1 Tablet on tongue every 8 hours as needed for Nausea. dissolve on tongue. 20 Tablet 08/10/20 Active Additional Information Patient not taking.Reported on 09/27/2024 Benzonatate 100 MG Oral CapsuleIndication s:COPD, group B, by GOLD 2017 classification ([facility]) Take 1 Capsule by mouth 3 times a day as needed for Cough. 30 Capsule 1 08/23/20 24 Active Vitamin D3 25 MCG (1000 UT) Oral Tablet (Vitamin D3) Take 1 Tablet by mouth in the morning. 30 Tablet 5 08/24/20 24 Active Breo Ellipta 100-25 MCG/ACT Inhalation Aerosol Powder Breath ActivatedIndicati ons:COPD, group B, by GOLD 2017 classification ([facility]) Inhale 1 Puff by mouth in the [...] hemoglobin A1c goal of less than 8.0% ([facility]) Take 1 Tablet by mouth in the morning. 90 Tablet 1 09/05/20 24 Active Gabapentin 100 MG Oral Capsule (Neurontin) TAKE ONE CAPSULE BY MOUTH TWICE A DAY 180 Capsule 1 09/14/20 24 Active Hospital, Clinic, or Other Facility Administered Medication Ordered Dose Route Frequency Start Date End Date Status Albuterol Sulfate (Proventil) (5 MG/ML) 0.5% *conc* inhalation solution 2.5 mgIndications:COPD, group B, by GOLD 2017 classification ([facility]),Dyspnea and respiratory abnormalities 2.5 mg NEBULIZER PRN 08/29/2024 08/29/2025 Active Albuterol Sulfate (Proventil) (2.5 MG/3ML) 0.083% inhalation solution 2.5 mgIndications:COPD, group B, by GOLD 2017 classification ([facility]),Dyspnea and respiratory abnormalities 2.5 mg NEBULIZER PRN 08/29/2024 08/29/2025 Active documented as of this encounter (statuses as of 10/20/2024) Active Problems Problem Noted Date Diagnosed Date [...] Assessment & Plan (01/09/2022 2:18 PM EST): [facility] Triage Call: Reviewed case w/ Dr Jaramillo [...] as of this encounter (statuses as of 10/20/2024) Resolved Problems Problem Noted Date Diagnosed Date Resolved Date Hypertensive chronic kidney disease with stage 5 chronic kidney disease or end stage renal disease 01/27/2023 08/24/2023 Atherosclerosis of 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 09/13/2021 [...] 2020 Chronic pharyngitis 09/15/20 21 Chronic laryngitis 1 documented as of this encounter (statuses as of 10/20/2024) Immunizations Name Administration Dates Next Due COVID-19 mRNA, LNP-s, No Pre serve, 2-Dose Series ([employer]) 10/20/2021,02/28/2021,02/07/2021 COVID-19, MRNA-LNP, PF, 30 M CG/0.3 mL, 12 YRS AND ABOVE, IM ([facility]) 10/13/2023 Covid-19, Mrna, Lnp-s, Pf, B ivalent, 30 Mcg, IM, 12 yrs and above ([employer]) 09/12/2022 HEPATITIS B VACCINE, RECOMB, 20 MCG/ML, [...] Seasonal Influenza, Quadriva lent Hd (Fluzone Hd) 08/12/2023,09/19/2022,09/12/2021 Seasonal Influenza, Quadriva lent Hd, 65+ Yrs [...] Sree Cunningham RN * Do you have serious difficulty walking or climbing stairs? (5 years old or older) Answer Date of Assessment Author No 02/09/2019 3:39 PM Sree Cunningham RN * Do you have difficulty dressing or bathing? (5 years old or older) Answer Date of Assessment Author No 02/09/2019 3:39 PM Sree Cunningham RN * Because of a physical, mental, [...] Sree Cunningham RN documented in this encounter Progress Notes * Helen Boyer, formerly [facility] - 10/20/2024 11:24 AM EST Images from the original note were not included. Medication Therapy Disease Management - Anticoagulation Patient: Tre Trejo | : 1940 Subjective Patient-Reported Symptoms: Patient Findings Negatives: Signs/symptoms of thrombosis, Signs/symptoms of bleeding, Change in health, Change in alcohol use, Change in activity, Upcoming invasive procedure, Missed doses, Extra doses, Change in medications, Change in diet/appetite, Bruising Objective Current Warfarin Dose As of 10/20/2024 Warfarin maintenance plan: 5 mg (2.5 mg x 2) every Sun, Tue, Thu; 2.5 mg (2.5 mg x 1) all other days INR Result As of 10/20/2024 INR goal: 2.0-3.0 INR used for dosin.5 (10/20/2024) Assessment & Plan Warfarin Plan As of 10/20/2024 Full warfarin instructions: 10/21: Hold; Otherwise 5 mg every Sun, Margi; 2.5 mg all other days Next INR check: 11/18/2024 Repeat PT/INR in 4 week(s) Weekly dose: decreased Additional Dosing Information: Description Takes in AM Pt prefers OFS vs GML (venipuncture) I spent a total of 10-19 minutes (exact time 10 mins) on the date of service in preparation, delivery, and documentation of the care provided to Tre Trejo excluding any time spent in the performance of separately billed services or time spent by another provider/QHP. Helen Boyer formerly [facility] Clinical Pharmacist 10/20/2024, 11:24 AM documented in this encounter Plan of Treatment Upcoming Encounters Date Type Department Care Team (Late st Contact Info) Description 10/24/2024 3:00 PM EST Office Visit Pulmonary Medicine, [facility] [address] [facility] [place] [address] [facility]pez [facility] [address] [facility] [address] 11/18/2024 2:30 PM EST Anticoagulation Pharmacy, [address] [address] [facility] [place] [address] 12/02/2024 2:30 PM EST Office Visit Interventional Pain Center, [facility] [address] [facility] [place] [address] Isis Mcrae PA-C [address] [place] [address] 03/13/2025 3:00 PM EDT Office Visit Nephrology, [facility] [address] [place] [address] David Jaramillo MD [address] [place] [address] 04/04/2025 2:40 PM EDT Office Visit [facility], [facility] [address] [place] [address] Suman Simpson MD [address] [facility] [place] [address] Health Maintenance Due Date Last Done Comments Adult Wellness Visit 2007 COVID-19 Vaccine ( season) 2024 10/13/2023, 09/12/2022, 10/20/2021, Additional history exists HbA1c 03/28/2025 09/27/2024, 04/0 06/2024, 01/13/2024, Additional history exists Diabetic Eye Exam 04/01/2025 04/01/2024, , 03/30/2023, Additional history exists Depression Screening 06/21/2025 06/21/2024 Diabetic Foot Exam 06/21/2025 06/21/2024, 0 04/16/2023, 06/14/2020, Additional history exists TSH 06/21/2025 06/21/2024, 06/1 01/2023, 12/27/2021, Additional history exists Zoster Vaccines (2 of 3) 06/21/2025 01/28/2013 Pos tponed from 03/25/2013 (Patient Declined After Education) O2 ASSESSMENT COMPLETED IN PAST YEAR FOR COPD 09/27/2025 09/27/2024 DTap/Tdap Vaccines (4 - Td or Tdap) [...] Not on filedocumented as of this encounter Procedures Procedure Name Priority Date/Time Associated Diagnosis Comments INR FINGERSTICK, POINT OF CARE STAT 10/20/2024 11:28 AM EST Atrial fibrillation, unspecified type (HCC) Anticoagulation management encounter documented in this encounter Results * INR FINGERSTICK, POINT OF CARE (10/20/2024 11:28 AM EST) Fingerstick INR 3.5 INR 11:31 AM EST [facility] Blood 10/20/2024 11:2 8 AM EST 10/20/2024 11:30 AM EST [facility] - 10/20/2024 11:31 AM EST Therapeutic ranges for non-operative patients: Prophylaxsis/treatment of DVT: (Range:2.0-3.0) Treatment of pulmonary embolism:(Range:2.0-3.0) Prevention of systemic embolism from: -tissue heart valves -acute myocardial infarction -valvular heart disease -atrial fibrillation (Range: 2.0-3.0) Mechanical prosthetic valves: (Range: 2.5-3.5) us Helen Boyer formerly [facility] LAB POINT OF CARE TEST DOCKED DEVICE UNSOLICITED RESULTS Final Result [facility]ORY [facility] [address] [place] [address] LAB[facility]AT[facility] [place] [address] [place] [place] [address] documented in this encounter Visit Diagnoses Diagnosis 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)- Primary 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)- Primary 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) Gastroesophageal reflux disease without esophagitis Esophageal reflux Atrial fibrillation, unspecified type (HCC) Anticoagulation management encounter- Primary Encounter for therapeutic drug monitoring Atrial fibrillation, unspecified type (HCC) documented in this encounter Advance Directives * Full Code [...] Agents on File Name Relationship Healthcare Agent [facility] Communication Latiasuresh Pierrederrick Spouse Health Care Agent Care Teams Autom[employer] Porter Relationship Specialty Start Date End Date Suman Simpson MD [address] [place] [address] PCP - General 01/26/03 documented as of this encounter
--- OUTSIDE RECORDS SUMMARY | 2024-11-05 21:43 | External Medical Summary | Summary of Care ---
Author Name Unknown Organization [facility] Address [address] [place] [address] Phone [phone] Care Team Providers Care [employer] Name Role Phone Suman Simpson MD Primary Care Provider [phone]- [phone] Encounter Details Date Type Department Care Team (Late st Contact Info) Description 10/06/2024 Population Health External Data Unspecified Department Allergies Active Allergy Reactions Criticality Noted Date Comments Metolazone 07/29/2021 Severe HYponatremia Morphine Sulfate Other (Please comment) 006 hallucinate Oxycodone Other (Please comment) 07/07/2006 Hallucinate Penicillins 07/21/2011 Hallucinate documented as of this encounter (statuses as of 10/13/2024) Medications VITAMIN C 500 MG PO TABS [...] 1/2 tab by mouth daily 45 Tablet 3 03/07/20 24 Active Bisacodyl 5 MG Oral Tablet Delayed Release (Dulcolax)Indicat ions:Constipation , unspecified constipation type Take 1 Tablet by mouth daily as needed for Constipation. May take 1 or two tablets 30 Tablet 11 03/07/20 24 Active Isosorbide Dinitrate 20 MG [...] hemoglobin A1c goal of less than 8.0% ([facility]) Use up to 4 times a day [...] mouth in the morning. 14 Each 03/07/20 24 Active Additional Information Patient not taking.Reported [...] chronic kidney disease not on chronic dialysis ([facility]) Take 2 tablets in AM and 2 [...] Nausea. dissolve on tongue. 20 Tablet 08/10/20 24 Active Additional Information Patient not taking.Reported on 09/27/2024 Benzonatate 100 MG Oral CapsuleIndication s:COPD, group B, by GOLD 2017 classification ([facility]) Take 1 Capsule by mouth 3 times a day as needed for Cough. 30 Capsule 1 08/23/20 24 Active Vitamin D3 25 MCG (1000 UT) Oral Tablet (Vitamin D3) Take 1 Tablet by mouth in the morning. 30 Tablet 5 08/24/20 24 Active Breo Ellipta 100-25 MCG/ACT Inhalation Aerosol Powder Breath ActivatedIndicati ons:COPD, group B, by GOLD 2017 classification ([facility]) Inhale 1 Puff by mouth in the [...] hemoglobin A1c goal of less than 8.0% ([facility]) Take 1 Tablet by mouth in the [...] mgIndications:COPD, group B, by GOLD 2017 classification ([facility]),Dyspnea and respiratory abnormalities 2.5 mg NEBULIZER PRN 08/29/2024 08/29/2025 Active Albuterol Sulfate (Proventil) (2.5 MG/3ML) 0.083% inhalation solution 2.5 mgIndications:COPD, group B, by GOLD 2017 classification ([facility]),Dyspnea and respiratory abnormalities 2.5 mg NEBULIZER PRN 08/29/2024 08/29/2025 Active documented as of this encounter (statuses as of 10/13/2024) Active Problems Problem Noted Date Diagnosed Date [...] Assessment & Plan (01/09/2022 2:18 PM EST): [facility] Triage Call: Reviewed case w/ Dr Jaramillo [...] as of this encounter (statuses as of 10/13/2024) Resolved Problems Problem Noted Date Diagnosed Date Resolved Date Hypertensive chronic kidney disease with stage 5 chronic kidney disease or end stage renal disease 01/27/2023 08/24/2023 Atherosclerosis of 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 09/13/2021 [...] as of this encounter (statuses as of 10/13/2024) Immunizations Name Administration Dates Next Due COVID-19 mRNA, LNP-s, No Pre serve, 2-Dose Series (Buffer) 10/20/2021,02/28/2021,02/07/2021 COVID-19, MRNA-LNP, PF, 30 M CG/0.3 mL, 12 YRS AND ABOVE, IM ([facility]) 10/13/2023 Covid-19, Mrna, Lnp-s, Pf, B ivalent, 30 Mcg, IM, 12 yrs and above ([facility]) 09/12/2022 HEPATITIS B VACCINE, RECOMB, 20 MCG/ML, [...] of Assessment Author No 02/09/2019 3:39 PM ASHISHT Sree Bishop RN * Are you blind [...] 02/09/2019 3:39 PM EDT Sree Bishop RN documented as of this encounter Mental Status * Because of a physical, mental, or emotional condition, do you have serious difficulty concentrating, remembering, or making decisions? (5 years old or older) Answer Entry Date Author No 02/09/2019 3:39 PM EDT Sree Bishop RN documented in this encounter Plan of Treatment Upcoming Encounters Date Type Department Care Team (Late st Contact Info) Description 10/20/2024 11:20 AM EST Anticoagulation Pharmacy, [place] [address] [place] [address] [facility] [address] [place] [address] 10/24/2024 3:00 PM EST Office Visit Pulmonary Medicine, [facility] [address] [facility] [place] [address] Bradley Yepez MD [address] [facility] [place] [address] 12/02/2024 2:30 PM EST Office Visit Interventional Pain Center, [facility] [address] [facility] [place] [address] Isis Mcrae PA-C [address] [place] [address] 03/13/2025 3:00 PM EDT Office Visit Nephrology, [facility] [address] [place] [address] David Jaramillo MD [address] [place] [address] 04/04/2025 2:40 PM EDT Office Visit [facility] [address] [place], [place] [id number] Suman Simpson MD [address] [place] [address] Health Maintenance Due Date Last Done Comments Adult Wellness Visit 2007 COVID-19 Vaccine ( season) 2024 10/13/2023, 09/12/2022, 10/20/2021, Additional history exists HbA1c 03/28/2025 09/27/2024, 04/0 06/2024, 01/13/2024, Additional history exists Diabetic Eye Exam 04/01/2025 04/01/2024, , 03/30/2023, Additional history exists Depression Screening 06/21/2025 06/21/2024 Diabetic Foot Exam 06/21/2025 06/21/2024, 0 04/16/2023, 06/14/2020, Additional history exists TSH 06/21/2025 06/21/2024, 06/01/2023, 12/27/2021, Additional history exists Zoster Vaccines (2 [...] Agents on File Name Relationship Healthcare Agent [facility] Communication Latia Robles Ficlesliederrick Spouse Health Care Agent Care Teams [employer] Relationship Specialty Start Date End Date Suman Simpson MD [address] [place] [address] PCP - General 01/26/03 documented as of this encounter
--- OUTSIDE RECORDS SUMMARY | 2024-11-05 21:43 | External Medical Summary | Summary of Care ---
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 Heart Failure Clinic Where should this appointment be scheduled? 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, unspecified heart failure chronicity (HCC) Allergies Active Allergy Reactions Criticality Noted Date Comments Metolazone 07/29/2021 Severe HYponatremia Morphine Sulfate Other (Please comment) 006 hallucinate Oxycodone Other (Please comment) 07/07/2006 Hallucinate Penicillins 07/21/2011 Hallucinate documented as of this encounter (statuses as of 10/24/2024) Medications VITAMIN C 500 MG PO TABS [...] hemoglobin A1c goal of less than 8.0% ([facility]) Use up to 4 times a day E11.9 100 Strip 03/07/20 24 Active Pantoprazole Sodium 40 MG Oral Tablet Delayed Release (Protonix)Indicat ions:Gastroesopha geal reflux disease without esophagitis TAKE ONE TABLET BY MOUTH EVERY DAY 30 MINUTES PRIOR TO EATING 90 Tablet 3 03/07/20 24 Active Polyethylene Glycol 3350 17 GM Oral Packet (Miralax)Indicati ons:Constipation, unspecified constipation type Take 1 Packet by mouth in the morning. 14 Each 3 03/07/20 24 Active Additional Information Patient not taking.Reported on 10/24/2024 Sennosides-Docusa te Sodium 8.6-50 MG Oral Tablet (Senokot-S)Indica tions:Constipatio n, unspecified constipation type Take 1 Tablet by mouth at bedtime as needed for Constipation. May increase to 2 as needed 30 Tablet 11 03/07/20 24 Active Tamsulosin HCl 0.4 MG Oral Capsule (Flomax)Indicatio ns:BPH with obstruction/lower urinary tract symptoms Take 1 Capsule by mouth in the morning. 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 30 Capsule 1 08/23/20 24 Active Vitamin D3 25 MCG (1000 UT) Oral Tablet (Vitamin D3) Take 1 Tablet by mouth in the morning. 30 Tablet 5 08/24/20 24 Active Breo Ellipta 100-25 MCG/ACT Inhalation Aerosol Powder Breath ActivatedIndicati ons:COPD, group B, by GOLD 2017 classification ([facility]) Inhale 1 Puff by mouth in the [...] hemoglobin A1c goal of less than 8.0% ([facility]) Take 1 Tablet by mouth in the [...] Dx Code: J44.9 1 Each 3 10/24/20 24 Active Albuterol Sulfate 0.63 MG/3ML Inhalation Nebulization Solution (Accuneb) Inhale 1 Vial via nebulizer every 6 hours as needed for Wheezing or Shortness of Breath. 360 mL 10/24/20 24 024 Active Hospital, Clinic, or Other Facility Administered Medication Ordered Dose Route Frequency Start Date End Date Status Albuterol Sulfate (Proventil) (5 MG/ML) 0.5% *conc* inhalation solution 2.5 mgIndications:COPD, group B, by GOLD 2017 classification ([facility]),Dyspnea and respiratory abnormalities 2.5 mg NEBULIZER PRN 08/29/2024 08/29/2025 Active Albuterol Sulfate (Proventil) (2.5 MG/3ML) 0.083% inhalation solution 2.5 mgIndications:COPD, group B, by GOLD 2017 classification ([facility]),Dyspnea and respiratory abnormalities 2.5 mg NEBULIZER PRN 08/29/2024 08/29/2025 Active documented as of this encounter (statuses as of 10/24/2024) Active Problems Problem Noted Date Diagnosed Date [...] Assessment & Plan (01/09/2022 2:18 PM EST): [facility] Triage Call: Reviewed case w/ Dr [...] as of this encounter (statuses as of 10/24/2024) Resolved Problems Problem Noted Date Diagnosed Date Resolved Date Hypertensive chronic kidney disease with stage 5 chronic kidney disease or end stage renal disease 01/27/2023 08/24/2023 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 09/13/2021 [...] as of this encounter (statuses as of 10/24/2024) Immunizations Name Administration Dates Next Due COVID-19 mRNA, LNP-s, No Pre serve, 2-Dose Series ([employer]) 10/20/2021,02/28/2021,02/07/2021 COVID-19, MRNA-LNP, PF, 30 M CG/0.3 mL, 12 YRS AND ABOVE, IM ([employer]) 10/13/2023 Covid-19, Mrna, Lnp-s, Pf, B ivalent, 30 Mcg, IM, 12 yrs and above ([employer]) 09/12/2022 HEPATITIS B VACCINE, RECOMB, 20 MCG/ML, [...] n file documented as of this encounter Last Filed Vital Signs Vital Sign Reading Time Taken Comments Blood Pressure 122/76 10/24/2024 3:03 PM EST Pulse 75 10/24/2024 3:03 PM EST Temperature 35.5 C (95.9 F) 10/24/2024 3:03 PM ES T Respiratory Rate 20 10/24/2024 3:03 PM EST Oxygen Saturation 100% 10/24/2024 3:03 PM EST ra, rest Inhaled Oxygen Concentration - - Weight 90.7 kg (200 lb) 10/24/2024 3:03 PM EST Height 163.8 cm (5' 4.5") 10/24/2024 3:03 PM EST Body Mass Index 33.8 10/24/2024 3:03 PM EST documented in this encounter Functional Status * Are you [...] Sree Bishop RN * Do you have difficulty dressing [...] documented in this encounter Progress Notes * Bradley Márquez MD - 10/24/2024 3:16 PM EST Images from the original note were not included. 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 ([employer]) Lifetime nonsmoker Multifactorial Dyspnea with cardiac, renal, pulmonary risk factors as noted Moderate Pulm HTN , Echo 12/2023, PAP 39 mm HG ( was 54 mmHg in prior echo) Moderate COPD with Mild restriction noted on recent PFT AFib, Warfarin anticoagulation therapy status Nocturnal Home Oxygen Therapy Status Hypertension BPH CKD BNP: 7K, 07/2024 Current BD Rx: Breo, Rescue Albuterol Physical examination: Alert, awake, oriented, wheelchair status Class 3 throat No JVD Adequate air entry, scattered coarse wheezing, no dullness S1, S2, no murmur Soft, nontender abdomen 1+lower extremity edema B/L with chronic venous congestion changes LUE AVF (was used for HD in past) with thrill Nonlateralizing Neuro examination Multifactorial dyspnea, likely triggers include cardiac risk factors and moderate pulmonary hypertension, moderate COPD Neb Machine with Albuterol nebulizer therapy was added C/w current BD RX along with p.r.n. albuterol nebs Flutter device was added with instructions provided Cardio referral for BNP/CHF managemnet F/u 6 months Follow-up: Return in about 6 months (around 04/23/2025). | Check-out note: Multifactorial dyspnea, likely triggers include cardiac risk factors and moderate pulmonary hypertension Patient and family concerned regarding need for home oxygen therapy Neb Machine with Albuterol C/w current BD RX Flutter device Cardio referral for BNP managemnet F/u 6 months Bradley Márquez MD Data review: Following reports, and data as outlined below was personally reviewed and interpreted by myself. 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 2.5 L nocturnal oxygen therapy status. Pulmonary function testing shows mixed moderate obstructive and mild restrictive ventilatory pattern. FEV1 is 1.35 L, 60% of predicted. No bronchodilator response is noted. Flow volume loop shows mixed obstructive and restrictive pattern. Lung volume study shows mild restriction based on SVC criteria. Moderate gas transfer defect is noted which is improved after adjustment for alveolar volume. Hyperinflation/air trapping is noted. Arterial blood gas study shows PO2 of 73 mmHg consistent with normal oxygen level on room air.Comparison with historical PFT data from 2018 shows unchanged ventilatory parameters over time. Overall impression: Mixed moderate obstructive and mild restrictive ventilatory pattern.6 minute walk test was completed on room air. Patient ambulated 1035 ft/ 315 m requiring 2 rest periods for 30 seconds total duration. Lowest oxygen saturation recorded was 92%. No evidence of hypoxia needed during limited ambulation on room air.This interpretation has been electronically signed: BRADLEY MÁRQUEZ DR. 09/27/2024 09:11:50 AM Subjective CC: Chief Complaint Patient presents with Follow Up HPI: Nursing Notes: Raven Lane LPN 10/24/24 1511 Addendum Pt is here for f/u COPD. Interm History/Respiratory Symptoms Cough: occasional, dry Hemoptysis: no Sinus Symptoms: congestion and/or drainage Hospitalizations: no ED Trips: no Triggers: exertion, cold air Nocturnal: occasional cough, sleeps with head elevated CPAP/BiPAP/O2: O2.5 LPM at night DME Supplier: [employer] Flu Vaccine: 2023 Pneumovax: 2011 Prevnar: 2015 COVID 19: x6 [facility] Cat Question 10/24/2024 2:57 PM EST - Incomplete When do you become breathless? (2) On level ground, I walk slower than people of the same age because of breathlessness or have to stop for breath when walking at my own pace How frequently do you cough? (3) Do you have phlegm in your chest? (2) Is your chest tight? (0) - My chest does not feel tight at all How breathless do you become when walking up a hill or steps? (5) - When I walk up a hill or one flight of stairs I am very breathless How limited are you doing activities at home? (5) - I am very limited doing activities at home How confident are you leaving home with your lung condition? (3) How soundly do you sleep? (3) How much energy do you have? (5) - I have no energy at all Total MMRC Score (range: 0 - 4) 2 Total CAT Score (range: 0 - 40) 26 Objective Filed Vitals: 10/24/24 1503 BP: 122/76 Pulse: 75 Resp: 20 Temp: 35.5 C (95.9 F) TempSrc: Tympanic SpO2: 100% Weight: 90.7 kg (200 lb) Height: 1.638 m (5' 4.5") Exam: Const: No signs of acute distress present. Head/Face: Normal on inspection. Eyes: Conjunctivae clear. Pupils equal round and reactive to light. ENMT: Oropharynx: No erythema, exudate or masses. Posterior pharynx is normal. Neck: Supple and symmetric. Resp: Respiratory examination as outlined above CV: Rate is regular. Rhythm is regular. No heart murmur appreciated. Extremities: No edema of the lower limbs bilaterally. Skin: Skin is warm and dry. Neuro: Coordination normal. No involuntary movement. Psych: Patient's attitude is cooperative. Mood is normal. Affect is normal. Tests reviewed with the patient: XR CHEST 2 VIEWS Result Date: 08/24/2024 IMPRESSION No evidence of pneumonia. XR TOES 2 OR MORE VIEWS Result Date: 06/25/2024 IMPRESSION No radiographic evidence for osteomyelitis. Chronic changes. XR SHOULDER, 2 OR MORE VIEWS Result Date: 05/05/2024 IMPRESSION: Moderate to advanced glenohumeral joint osteoarthritis. THIS DOCUMENT HAS BEEN ELECTRONICALLY SIGNED BY AL TANG MD Available Radiologic data was reviewed by me in PACS. The images were shown to the patient and findings were discussed with the patient. HOME MEDICATIONS: Albuterol Sulfate 0.63 MG/3ML Inhalation Nebulization Solution (Accuneb) Full Kit Nebulizer Set oxygen IN GAS Gabapentin 100 MG Oral Capsule (Neurontin) glipiZIDE 5 MG Oral Tablet (Glucotrol) Metoprolol Succinate ER 100 MG Oral Tablet Extended Release 24 Hour (toPROL XL) Breo Ellipta 100-25 MCG/ACT Inhalation Aerosol Powder Breath Activated Vitamin D3 25 MCG (1000 UT) Oral Tablet (Vitamin D3) Benzonatate 100 MG Oral Capsule Multiple Vitamins Oral Tablet Warfarin Sodium 2.5 MG Oral Tablet (Jantoven) Torsemide 100 MG Oral Tablet (Demadex) Allopurinol 100 MG Oral Tablet (Zyloprim) Bisacodyl 5 MG Oral Tablet Delayed Release (Dulcolax) Isosorbide Dinitrate 20 MG Oral Tablet (Isordil) Levothyroxine Sodium 88 MCG Oral Tablet (Levoxyl) Losartan Potassium 25 MG Oral Tablet (Cozaar) OneTouch Verio In Vitro Strip (Glucose Blood) Pantoprazole Sodium 40 MG Oral Tablet Delayed Release (Protonix) Sennosides-Docusate Sodium 8.6-50 MG Oral Tablet (Senokot-S) Tamsulosin HCl 0.4 MG Oral Capsule (Flomax) MULTIVITAL PO TABS VITAMIN C 500 MG PO TABS Ondansetron 4 MG Oral Tablet Disintegrating (Zofran) Silver sulfADIAZINE 1 % External Cream (Silvadene) Polyethylene Glycol 3350 17 GM Oral Packet (Miralax) Probiotic Daily Oral Capsule Vitamin-B Complex Oral Tablet Albuterol Sulfate (Proventil) (2.5 MG/3ML) 0.083% inhalation solution 2.5 mg Albuterol Sulfate (Proventil) (5 MG/ML) 0.5% *conc* inhalation solution 2.5 mg ROS: No reported history of Hemoptysis, Hematemesis, Melena No reported history of Dysuria, Hematuria, Flank Pain No reported history of chronic headache, seizures No reported history of Fall or trauma . No reported history of recent change in weight or appetite. Past Medical History: Diagnosis Date Allergic rhinitis 11/30/2005 Arthritis, rheumatoid (HCC) MUNOZ'S ESOPHAGUS 06/07/2010 hiatal hernia bxs done--Barretts repeat in one yr Benign neoplasm of colon 01/08/2010 adenomatous tissue--repeat 5 years Chronic laryngitis 11/30/2005 Chronic pharyngitis 11/30/2005 CHRONIC RENAL FAILURE COPD (chronic obstructive pulmonary disease) (HCC) Diaphragmatic hernia Esophagitis, unspecified Gouty arthropathy HTN, goal below 140/90 Insomnia, unspecified NON ALLERGIC RHINITIS 11/30/2005 Other acute otitis externa 11/30/2005 Presbyacusis 11/30/2005 Restless leg syndrome by sleep study Sensorineural hearing loss, bilateral 11/30/2005 Sleep apnea Past Surgical History: Procedure Laterality Date ARTHROPLASTY KNEE TOTAL 07/2002 TKR (Total Knee Replacement) Dr Cornejo ARTHROPLASTY KNEE TOTAL 07/2002 TKR (Total Knee Replacement) CARPAL TUNNEL SURGERY Carpal Tunnel repair CARPAL TUNNEL SURGERY Carpal Tunnel repair COLONOSCOPY W/ LESION REMOVAL, SNARE 01/08/2010 diverticulosis, hemorrhoids & polyps x 1--adenomatous tissue--repeat 5 years COLONOSCOPY, DIAGNOSTIC (RECTUM) N/A 09/04/2023 diverticulosis/hemorrhoids/biopsies show adenomatous polyps/recall 6 months/Colonoscopy/[place] DESTROY LUMBAR SACRAL NERVE IMAGING SINGLE 10/10/2019 DESTROY LUMBAR SACRAL NERVE IMAGING SINGLE performed by Maurisio Mike, DO at OR [facility] GRAFT EAR CARTILAGE TO NOSE/EAR N/A 02/09/2019 GRAFT EAR CARTILAGE TO EAR OR NOSE performed by Amanda Marcelino MD at OR [facility] INFORMATION 1988 ear surg, nerve cut dysequilibrium left [facility] INFORMATION amputation tip rt index finger, accident INFORMATION back surgery INJECT DX/THER SUBSTANCE INTERLAMINAR LUMBAR/SACRAL W IMAGE GUIDE 06/27/2019 INJECTION SPINE LUMBAR OR SACRAL performed by Maurisio Mike DO at [facility] INJECT DX/THER SUBSTANCE INTERLAMINAR LUMBAR/SACRAL W IMAGE GUIDE 07/14/2019 INJECTION SPINE LUMBAR OR SACRAL performed by Maurisio Mike DO at OR [facility] KNEE ARTHROSCOPY, DIAGNOSTIC Knee Arthroscopy right Dr Wang L-/S-SPINE PARAVERTEBRAL FACET INJ,1 LEVEL 08/18/2019 L-/S-SPINE PARAVERTEBRAL FACET INJ, 1 LEVEL performed by Maurisio Mike DO at OR [facility] L-/S-SPINE PARAVERTEBRAL FACET INJ,1 LEVEL 09/05/2019 L-/S-SPINE PARAVERTEBRAL FACET INJ, 1 LEVEL performed by Maurisio Mike DO at OR [facility] NASAL SEPTUM CARTILAGE FOR GRAFT N/A 02/09/2019 OBTAIN CARTILAGE GRAFT NASAL SEPTUM performed by Amanda Marcelino MD at OR [facility] RECONSTRUCTION OF NOSE/SEPTUM N/A 02/09/2019 RHINOPLASTY COMPLETE INCLUDING MAJOR SEPTAL REPAIR performed by Amanda Marcelino MD at OR [facility] REMOVE CATARACT, INSERT LENS PROSTH Bilateral 2017 Dr Vinson REMOVE NECK SPINE LAMINA, 1-2 SEGS Cervical Laminectomy [facility] REMOVE RIB CARTILAGE FOR GRAFT N/A 02/09/2019 OBTAIN CARTILAGE GRAFT COSTOCHONDRAL performed by Amanda Marcelino MD at OR [facility] REMOVE TONSILS & ADENOIDS, UNDER 12 Tonsillectomy/Adenoids,<12 Y/O REPAIR INGUINAL HERNIA, UNDER AGE 5 Inguinal Hernia Repair,6mo-5yr,Reduc REPAIR RUPTURED ROTATOR CUFF, CHRON Rotator Repair Cuff,Chronic left REVISION OF PALATE, PHARYNX/UVULA 03/28/2014 PALATOPHARYNGOPLASTY performed by Too Medina MD at OR [facility] SMALL BOWEL ENDOSCOPY W/BX 06/07/2010 hiatal hernia bxs done--Barretts repeat in one yr Social History Socioeconomic History Marital status: Occupational History Occupation: not currently employed Tobacco Use Smoking status: Never Passive exposure: Past Smokeless tobacco: Never Vaping Use Vaping status: Never Used Substance and Sexual Activity Alcohol use: Never Drug use: No Sexual activity: Yes Partners: Female Other Topics Concern Service No Blood Transfusions No Caffeine Concern No Hobby Hazards No Sleep Concern Yes Comment: does not sleep well, wakes after a couple hours Stress Concern No Weight Concern Yes Special Diet No Exercise No Comment: he is active Bike Helmet No Seat Belt Yes Social Needs Food Insecurity: No Food Insecurity (12/01/2019) Hunger Vital Sign Worried About Running Out of Food in the Last Year: Never true Ran Out of Food in the Last Year: Never true Family History Problem Relation Name Age of Onset Cancer Mother lung Gastro-intestinal disorder Father obstruction oct Review of patient's allergies indicates: Allergen Reactions Metolazone Severe HYponatremia Morphine [Morphine Sulfate] Other (Please comment) hallucinate Oxycodone [Oxycodone] Other (Please comment) Hallucinate Penicillins Hallucinate documented in this encounter Nursing Notes * Raven Lane LPN - 10/24/2024 2:57 PM EST Pt is here for f/u COPD. Interm History/Respiratory Symptoms Cough: occasional, dry Hemoptysis: no Sinus Symptoms: congestion and/or drainage Hospitalizations: no ED Trips: no Triggers: exertion, cold air Nocturnal: occasional cough, sleeps with head elevated CPAP/BiPAP/O2: O2.5 LPM at night DME Supplier: [employer] Flu Vaccine: 2023 Pneumovax: 2011 Prevnar: 2015 COVID 19: x6 [facility] Cat Question 10/24/2024 2:57 PM EST - Incomplete When do you become breathless? (2) On level ground, I walk slower than people of the same age because of breathlessness or have to stop for breath when walking at my own pace How frequently do you cough? (3) Do you have phlegm in your chest? (2) Is your chest tight? (0) - My chest does not feel tight at all How breathless do you become when walking up a hill or steps? (5) - When I walk up a hill or one flight of stairs I am very breathless How limited are you doing activities at home? (5) - I am very limited doing activities at home How confident are you leaving home with your lung condition? (3) How soundly do you sleep? (3) How much energy do you have? (5) - I have no energy at all Total MMRC Score (range: 0 - 4) 2 Total CAT Score (range: 0 - 40) 26 documented in this encounter Plan of Treatment Upcoming Encounters Date Type Department Care Team (Late st Contact Info) Description 11/18/2024 2:30 PM EST Anticoagulation Pharmacy, [facility] [address] [facility] [place] [phone] [facility] [address] [facility] [place] [address] 12/02/2024 2:30 PM EST Office Visit Interventional Pain Center, [facility] [address] [facility] [place] [address] Isis Mcrae PA-C [address] [facility] [place] [address] 12/22/2024 3:00 PM EST Office Visit Cardiology, [facility] [address] [facility] [place] [address] Rosetta Velasco CRNP [address] [place], [place] [address] [address] 03/13/2025 3:00 PM EDT Office Visit Nephrology, [facility] [address] [facility], [place] [address] David Jaramillo MD [address] [facility], [place] [address] 04/04/2025 2:40 PM EDT [facility] [address] [facility] [place] [phone] Suman Simpson MD [address] [facility] [place] [address] 04/26/2025 3:00 PM EDT Office Visit Pulmonary Medicine, [facility] [address] 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, unspecified heart failure chronicity (HCC) Ordered: 10/24/2024 Health Maintenance Due Date Last Done Comments [...] Not on filedocumented as of this encounter Visit Diagnoses Diagnosis Hypertensive heart [...] Esophageal reflux Atrial fibrillation, unspecified type (HCC) Dyspnea and respiratory abnormalities- Primary Other dyspnea and respiratory abnormality 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
--- OUTSIDE RECORDS SUMMARY | 2024-11-05 21:43 | External Medical Summary ---
Author Name Unknown Address Unknown Organization : Laboratory Report Ordering Provider Test Date Status LAURA BRANNON 10/20/2024 11:28:17 Final Therapeutic ranges for non-o perative patients:
Prophylaxsis/treatment of DVT: (Range:2.0-3.0)
Treatment of pulmonary embolism:(Range:2.0-3.0)
Prevention of systemic embolism from:
-tissue heart valves
-acute myocardial infarction
-valvular heart disease
-atrial fibrillation
(Range: 2.0-3.0)
Mechanical prosthetic valves: (Range: 2.5-3.5) Observation Date Value Abnormality Reference (Units ) Status INR in Capillary blood by Coagulation assay 10/20/2024 11:28:17 3.5 (INR) Final Performing Location
--- OUTSIDE RECORDS SUMMARY | 2024-11-05 21:43 | External Medical Summary | Summary of Care ---
Author Name Unknown Organization [facility] Address [address] [place] [address] Phone [phone] Care Team Providers Care Recreation Engineer Name Role Phone Suman Simpson MD Primary Care Provider +1- [phone] Reason for Visit * Reason Onset Date Comments Test Results 10/25/2024 Encounter Details Date Type Department Care Team (Late st Contact Info) Description 10/25/2024 Telephone [facility] [address] [place] [address] Suman Simpson MD [address] [place] [address] Test Results Allergies Active Allergy Reactions Criticality Noted Date Comments Metolazone 07/29/2021 Severe HYponatremia Morphine Sulfate Other (Please comment) 006 hallucinate Oxycodone Other (Please comment) 07/07/2006 Hallucinate Penicillins 07/21/2011 Hallucinate documented as of this encounter (statuses as of 10/28/2024) Medications VITAMIN C 500 MG PO TABS [...] tab by mouth daily 45 Tablet 3 04/08/20 24 Active Bisacodyl 5 MG Oral Tablet [...] hemoglobin A1c goal of less than 8.0% ([facility]) Use up to 4 times a day [...] chronic kidney disease not on chronic dialysis ([facility]) Take 2 tablets in AM and 2 [...] s:COPD, group B, by GOLD 2017 classification ([facility]) Take 1 Capsule by mouth 3 times a day as needed for Cough. 30 Capsule 1 08/23/20 24 Active Vitamin D3 25 MCG (1000 UT) Oral Tablet (Vitamin D3) Take 1 Tablet by mouth in the morning. 30 Tablet 5 08/24/20 24 Active Breo Ellipta 100-25 MCG/ACT Inhalation Aerosol Powder Breath ActivatedIndicati ons:COPD, group B, by GOLD 2017 classification ([facility]) Inhale 1 Puff by mouth in the [...] hemoglobin A1c goal of less than 8.0% ([facility]) Take 1 Tablet by mouth in the [...] mgIndications:COPD, group B, by GOLD 2017 classification ([facility]),Dyspnea and respiratory abnormalities 2.5 mg NEBULIZER PRN 08/29/2024 08/29/2025 Active Albuterol Sulfate (Proventil) (2.5 MG/3ML) 0.083% inhalation solution 2.5 mgIndications:COPD, group B, by GOLD 2017 classification ([facility]),Dyspnea and respiratory abnormalities 2.5 mg NEBULIZER PRN 08/29/2024 08/29/2025 Active documented as of this encounter (statuses as of 10/28/2024) Active Problems Problem Noted Date Diagnosed Date [...] Assessment & Plan (01/09/2022 2:18 PM EST): [facility] Triage Call: Reviewed case w/ Dr [...] as of this encounter (statuses as of 10/28/2024) Resolved Problems Problem Noted Date Diagnosed Date Resolved Date Hypertensive chronic kidney disease with stage 5 chronic kidney disease or end stage renal disease 01/27/2023 08/24/2023 Atherosclerosis of [place] 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 09/13/2021 [...] as of this encounter (statuses as of 10/28/2024) Immunizations Name Administration Dates Next Due COVID-19 mRNA, LNP-s, No Pre serve, 2-Dose Series ([employer]) 10/20/2021,02/28/2021,02/07/2021 COVID-19, MRNA-LNP, PF, 30 M CG/0.3 mL, 12 YRS AND ABOVE, IM ([employer]x-Comirnat) 10/13/2023 Covid-19, Mrna, Lnp-s, Pf, B ivalent, [...] encounter Miscellaneous Notes * Telephone Encounter - Kevin Philippe MD - 10/28/2024 2:19 PM EST Please note that Dr Simpson addressed the recent lab results (09/27/24). Iron still a little low so more Iron infusion may be needed. Ultimately this needs to be addressed with Dr Simpson. * Telephone Encounter - Maryjane Rich LPN - 10/28/2024 9:58 AM EST Pt's daughter states that pt feels weaker after the iron infusion. Also wanting to know if he needsmore iron infusions. Pt's daughter was made aware of message below, but was concerned with pt iron levels. Please advise. * Telephone Encounter - Suman Simpson MD - 10/26/2024 3:29 PM EST Can notify that diabetes control is ok with hgba1c 7.9 Mild, stable anemia. Platelet count is lower than last check - but just needs continued monitoring. Kidney function abnormal but know issue and improved from previous check. The BNP is elevated - consistent with known heart issue. No changes from me at this time. Can see if there has been any change in his symptoms and send back * Telephone Encounter - Esha Araya OSA - 10/25/2024 3:52 PM EST Who is Requesting Test Results: Pts daughter (she is requesting to someone call the pt to provide the results) Primary Care Provider : Suman Simpson MD Tests Results Requested : Labs Date of Test : 09/27 Location of Test: [place] Ordering Provider: PCP Patient has been made aware that the turnaround time for test results are typically as follows: Laboratory results = within 2-3 days ([facility]), 3-5 days (Non[facility], ie. [facility]) Urine Cultures = within 2-3 days depending on growth within the culture Pathology results (biopsy results/PAP) = 1-2 weeks Radiology results = about 1 week Cologuard results = within 2 weeks from the shipment date COVID testing = about 24 hours documented in this encounter Plan of Treatment Upcoming Encounters Date Type Department Care Team (Late st Contact Info) Description 11/18/2024 2:30 PM EST Anticoagulation Pharmacy, [address] [place] [phone] [facility] [address] [facility] [address] 12/02/2024 2:30 PM EST Office Visit Interventional Pain Center, [facility] [address] [facility] [place] [address] Isis Mcrae PA-C [address] [facility] [place] [address] 12/22/2024 3:00 PM EST Office Visit Cardiology, [facility] [address] [facility] [place] [address] Rosetta Velasco, HOUSEHOLD REFRIGERATION MECHANIC [address] [place] [address] 03/13/2025 3:00 PM EDT Office Visit Nephrology, [facility] [address] [facility] [place], [place] [address] David Jaramillo MD [address] [facility] [place] [address] 04/04/2025 2:40 PM EDT Office Visit Family Practice, [facility] [address] [facility] [place] [phone] Suman Simpson MD [address] [facility] [place] [address] 04/26/2025 3:00 PM EDT Office Visit Pulmonary Medicine, [facility] [address] [facility] [place] [address] Bradley Yepez MD [address] [place] [address] Health Maintenance Due Date Last Done Comments [...] Agents on File Name Relationship Healthcare Agent [facility] Communication Latia Trejo Spouse Health Care Agent Care Teams Recreation Engineer Relationship Specialty Start Date End Date Suman Simpson MD [address] [place], [place] [id number] PCP - General 01/26/03 documented as of this encounter
--- OUTSIDE RECORDS SUMMARY | 2024-11-05 21:43 | External Medical Summary | Summary of Care ---
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 Active Vitamin-B Complex Oral Tablet Take 1 Tablet by mouth in the morning. Active Allopurinol 100 MG Oral Tablet (Zyloprim)Indica tions:Gout, unspecified cause, unspecified chronicity, unspecified site Take 1/2 tab by mouth daily 45 Tablet Active Bisacodyl 5 MG Oral Tablet Delayed Release (Dulcolax)Indica tions:Constipati on, unspecified constipation type Take 1 Tablet by mouth daily as needed for Constipation. May take 1 or two tablets 30 Tablet Active Isosorbide Dinitrate 20 MG Oral Tablet (Isordil)Indicat ions:HTN, goal below 140/90 TAKE ONE TABLET BY MOUTH EVERY MORNING AND TAKE ONE TABLET BY MOUTH BEFORE BEDTIME 180 Tablet Active Levothyroxine Sodium 88 MCG Oral Tablet (Levoxyl)Indicat ions:Other specified hypothyroidism TAKE ONE TABLET BY MOUTH EVERY MORNING AT LEAST 30 MINUTES PRIOR TO BREAKFAST OR OTHER MEDICATIONS 90 Tablet Active Losartan Potassium 25 MG Oral Tablet (Cozaar) Take 1 Tablet by mouth in the morning. 90 Tablet Active OneTouch Verio In Vitro Strip (Glucose Blood)Indication s:Type 2 diabetes mellitus with hemoglobin A1c goal of less than 8.0% ([facility]) Use up to 4 times a day E11.9 100 Strip Active Pantoprazole Sodium 40 MG Oral Tablet Delayed Release (Protonix)Indica tions:Gastroesop hageal reflux disease without esophagitis TAKE ONE TABLET BY MOUTH EVERY DAY 30 MINUTES PRIOR TO EATING 90 Tablet Active Polyethylene Glycol 3350 17 GM Oral Packet (Miralax)Indicat ions:Constipatio n, unspecified constipation type Take 1 Packet by mouth in the morning. 14 Each Active Additional Information Patient not taking.Reported on 08/10/2024 Sennosides-Docus ate Sodium 8.6-50 MG Oral Tablet (Senokot-S)Indic ations:Constipat ion, unspecified constipation type Take 1 Tablet by mouth at bedtime as needed for Constipation. May increase to 2 as needed 30 Tablet Active Tamsulosin HCl 0.4 MG Oral Capsule (Flomax)Indicati ons:BPH with obstruction/lowe r urinary tract symptoms Take 1 Capsule by mouth in the morning. 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 360 Tablet 3 024 Active Warfarin Sodium 2.5 MG Oral Tablet (Jantoven) TAKE 1-2 TABLETS BY MOUTH DAILY. According to anticoagulation clinic 180 Tablet 3 024 Active Multiple Vitamins Oral Tablet Take 1 Tablet by mouth in the morning. 023 Active Silver sulfADIAZINE 1 % External Cream (Silvadene)Indic ations:Venous stasis dermatitis Apply topically to affected area daily. 85 g 1 024 Active Additional Information Patient not taking.Reported on 08/10/2024 Ondansetron 4 MG Oral Tablet Disintegrating (Zofran)Indicati ons:Nausea Place 1 Tablet on tongue every 8 hours as needed for Nausea. dissolve on tongue. 20 Tablet 024 Active Benzonatate 100 MG Oral CapsuleIndicatio ns:COPD, group B, by GOLD 2017 classification ([facility]) Take 1 Capsule by mouth 3 times a day as needed for Cough. 30 Capsule 1 024 Active Vitamin D3 25 MCG (1000 UT) Oral Tablet (Vitamin D3) Take 1 Tablet by mouth in the morning. 30 Tablet 5 024 Active Breo Ellipta 100-25 MCG/ACT Inhalation Aerosol Powder Breath ActivatedIndicat ions:COPD, group B, by GOLD 2017 classification ([facility]) Inhale 1 Puff by mouth in the morning. 180 Each 3 024 Active Metoprolol Succinate ER 100 MG Oral Tablet Extended Release 24 Hour (toPROL XL)Indications:H TN, goal below 140/90 TAKE ONE TABLET BY MOUTH EVERY MORNING AND AT BEDTIME 180 Tablet 1 024 Active glipiZIDE 5 MG Oral Tablet (Glucotrol)Indic ations:Type 2 diabetes mellitus with hemoglobin A1c goal of less than 8.0% ([facility]) Take 1 Tablet by mouth in the morning. 90 Tablet 1 024 Active Gabapentin 100 MG Oral Capsule (Neurontin) Take 1 capsule by mouth twice per day. 180 Capsule 1 024 2023 Discontinued Hospital, Clinic, or Other Facility Administered Medication Ordered Dose Route Frequency Start Date End Date Status Albuterol Sulfate (Proventil) (5 MG/ML) 0.5% *conc* inhalation solution 2.5 mgIndications:COPD, group B, by GOLD 2017 classification ([facility]),Dyspnea and respiratory abnormalities 2.5 mg NEBULIZER PRN 08/29/2024 08/29/2025 Active Albuterol Sulfate (Proventil) (2.5 MG/3ML) 0.083% inhalation solution 2.5 mgIndications:COPD, group B, by GOLD 2017 classification ([facility]),Dyspnea and respiratory abnormalities 2.5 mg NEBULIZER PRN 08/29/2024 08/29/2025 Active documented as of this encounter (statuses as of 10/12/2024) Active Problems Problem Noted Date Diagnosed Date [...] Assessment & Plan (01/09/2022 2:18 PM EST): [facility] Triage Call: Reviewed case w/ Dr [...] as of this encounter (statuses as of 10/12/2024) Resolved Problems Problem Noted Date Diagnosed Date Resolved Date Hypertensive chronic kidney disease with stage 5 chronic kidney disease or end stage renal disease 01/27/2023 08/24/2023 Atherosclerosis of [place] 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 09/13/2021 [...] as of this encounter (statuses as of 10/12/2024) Immunizations Name Administration Dates Next Due COVID-19 mRNA, LNP-s, No Pre serve, 2-Dose Series ([employer]) 10/20/2021,02/28/2021,02/07/2021 COVID-19, MRNA-LNP, PF, 30 M CG/0.3 mL, 12 YRS AND ABOVE, [facility] 10/13/2023 Covid-19, Mrna, Lnp-s, Pf, B ivalent, 30 Mcg, IM, 12 yrs and above ([employer]) 09/12/2022 HEPATITIS B VACCINE, RECOMB, 20 MCG/ML, [...] Sign Reading Time Taken Comments Blood Pressure 151/66 09/09/2024 11:25 AM EDT Pulse 59 09/09/2024 11:25 AM EDT Temperature 35.6 C (96.1 F) 09/09/2024 11:25 AM E DT Respiratory Rate 18 09/09/2024 11:25 AM EDT Oxygen Saturation 97% 09/09/2024 11:25 AM EDT Inhaled Oxygen Concentration - - Weight - - Height - - Body Mass Index - - documented in this encounter Functional Status * [...] Sree Cunningham RN documented in this encounter Nursing Notes * Rossy Ortega RN - 09/09/2024 11:26 AM EDT Patient to chair 8 via wheelchair with family Patient voices no new complaints or concerns Safety and Risk for Injury Patient will remain free from injury. Ensure appropriate safety devices are available. Provide and maintain safe environment. Patient instructed on use of heat and massage functions where applicable. Patient shown how to operate the heat function of the chair and to alert nursing staff if the chair feels too warm. Patient instructed on the risk of potential dickey while using the heat function. Goals: patient will remain free of injury Possible barriers to meeting goals: ambulation with IV pole and use of wheelchair, increase risk offall Stability of the patient: Moderately stable - low risk of patient condition declining or worsening Summary regarding today's goals: Met: Patient remained free of injury Patient discharged in good condition, tolerated well documented in this encounter Plan of Treatment Upcoming Encounters Date Type Department Care Team (Late st Contact Info) Description 10/20/2024 11:20 AM EST [facility] [place] [address] [facility] [address] [facility] [address] [facility] [address] 10/24/2024 3:00 PM EST Office Visit Pulmonary Medicine, [facility] [address] [facility] [place] [address] Bradley Yepez MD [address] [facility] [address] 12/02/2024 2:30 PM EST Office Visit Interventional Pain Center, [facility] [address] [facility] [place] [address] Isis Mcrae PA-C [address] [facility] [place] [address] 03/13/2025 3:00 PM EDT Office Visit Nephrology, [facility] [address] [place] [address] David Jaramillo MD [address] [place] [address] 04/04/2025 2:40 PM EDT [facility] [place] [address] Suman Simpson MD [address] [place] [address] Health Maintenance Due Date Last Done Comments [...] Esophageal reflux Atrial fibrillation, unspecified type (HCC) 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)- Primary End stage renal disease (HCC) End stage renal disease documented in this encounter Administered Medications Inactive Administered Medications - up to 3 most recent administrations Medication Order MAR Action Action Date Dose Rate Site Iron Sucrose (Venofer) 300 mg in NSS 250 mL ivpb 300 mg, IV Piggyback, ONCE, 1 dose, On Thu09/09/24 at 1245, Administer over 90 MinutesIndications: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),End stage renal disease (HCC) Start Infusion 09/09/2024 11:15 AM EDT 300 mg 180 mL/hr NSS infusion 500 mL, Intravenous, at 50 mL/hr, CONTINUOUS, Starting on Thu09/09/24 at 1215, Until Thu09/09/24 at 1700Indications: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),End stage renal disease (HCC) Start Infusion 09/09/2024 11:07 AM EDT 500 mL 50 mL/hr documented in this encounter Advance Directives * [...] Agents on File Name Relationship Healthcare Agent [employer] [facility] Communication Latia Trejo Spouse Health Care Agent Care Teams Etymology Teacher Relationship Specialty Start Date End Date Suman Simpson MD [address] [place] [address] PCP - General 01/26/03 documented as of this encounter
--- OUTSIDE RECORDS SUMMARY | 2024-11-05 21:43 | External Medical Summary | Summary of Care ---
Author Name Unknown Organization [facility] Address [address] [place] [address] Phone [phone] Care Team Providers Care Natural Science Curator Name Role Phone Suman Simpson MD Primary Care Provider [phone] Reason for Visit * Reason Onset Date Comments Medication Administration 09/02/2024 Flu an d/or Pneumo Inj IV Therapy Venofer 12/02 Encounter Details Date Type Department Care Team (Latest Contact Info) Description 09/02/2024 11:00 AM EDT Hem/Onc Treatment Hematology/Oncology Treatment, [address] [phone] Ann-Marie, Chair 2 Hem Onc [facility] [address] [place], [place] [id number] 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 dissolve on tongue. 20 Tablet Active Benzonatate 100 MG Oral CapsuleIndicatio ns:COPD, group B, by GOLD 2017 classification ([facility]) Take 1 Capsule by mouth 3 times a day as needed for Cough. 30 Capsule 1 024 Active Vitamin D3 25 MCG (1000 UT) Oral Tablet (Vitamin D3) Take 1 Tablet by mouth in the morning. 30 Tablet 5 024 Active Breo Ellipta 100-25 MCG/ACT Inhalation Aerosol Powder Breath ActivatedIndicat ions:COPD, group B, by GOLD 2017 classification ([facility]) Inhale 1 Puff by mouth in the morning. 180 Each 3 Active glipiZIDE 5 MG Oral Tablet (Glucotrol)Indic ations:Type 2 diabetes mellitus with hemoglobin A1c goal of less than 8.0% ([facility]) Take 1 Tablet by mouth in the morning. 90 Tablet 3 024 2023 Discontinued Metoprolol Succinate ER 100 MG Oral Tablet Extended Release 24 Hour (toPROL XL)Indications:H TN, goal below 140/90 TAKE ONE TABLET BY MOUTH EVERY MORNING AND AT BEDTIME 180 Tablet 3 024 2023 Discontinued Gabapentin 100 MG Oral Capsule (Neurontin) Take 1 capsule by mouth twice per day. 180 Capsule 1 024 2023 Discontinued Hospital, Clinic, or Other Facility Administered Medication Ordered Dose Route Frequency Start Date End Date Status Albuterol Sulfate (Proventil) (5 MG/ML) 0.5% *conc* inhalation solution 2.5 mgIndications:COPD, group B, by GOLD 2017 classification ([facility]),Dyspnea and respiratory abnormalities 2.5 mg NEBULIZER PRN 08/29/2024 08/29/2025 Active Albuterol Sulfate (Proventil) (2.5 MG/3ML) 0.083% inhalation solution 2.5 mgIndications:COPD, group B, by GOLD 2017 classification ([facility]),Dyspnea and respiratory abnormalities 2.5 mg NEBULIZER PRN [...] Assessment & Plan (01/09/2022 2:18 PM EST): [facility] Triage Call: Reviewed case w/ Dr [...] stage renal disease 01/27/2023 08/24/2023 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 10/13/2023 Covid-19, Mrna, Lnp-s, Pf, B ivalent, 30 Mcg, IM, 12 yrs and above ([employer]) 09/12/2022 HEPATITIS B VACCINE, RECOMB, 20 MCG/ML, [...] Sign Reading Time Taken Comments Blood Pressure 154/73 09/02/2024 11:34 AM EDT Pulse 80 09/02/2024 11:34 AM EDT Temperature 36.6 C (97.9 F) 09/02/2024 11:34 AM E DT Respiratory Rate 18 09/02/2024 11:34 AM EDT Oxygen Saturation 96% 09/02/2024 11:34 AM EDT Inhaled Oxygen Concentration - - [...] 02/09/2019 3:39 PM ASHISHT Sree Bishop RN documented as of this encounter Mental Status * Because of a physical, mental, or emotional condition, do you have serious difficulty concentrating, remembering, or making decisions? (5 years old or older) Answer Entry Date Author No 02/09/2019 3:39 PM ASHISHT Sree Bishop RN documented in this encounter Patient Instructions * Patient Instructions* Kerri Fagan RN - 09/02/2024 11:24 AM EDT ~~PATIENT INSTRUCTIONS FOR FLU SHOT~~ Possible side effects of influenza vaccine, (flu shot), are usually mild and include: 1. Soreness or redness at injection site 2. Low grade fever 3. Body aches You may use Tylenol/Acetaminophen as needed for these symptoms. LET YOUR DOCTOR KNOW IMMEDIATELY IF YOU HAVE DIFFICULTY BREATHING OR SWALLOWING, EXPERIENCE ITCHINGOF FEET OR HANDS, HAVE SWELLING OF EYES, FACE OR INSIDE OF NOSE. documented in this encounter Progress Notes * Kerri Fagan RN - 09/02/2024 11:21 AM EDT PRE - ADMINISTRATION DOCUMENTATION Are you experiencing any cold symptoms or fever? No Have you had Guillain-Bridgewater Syndrome (an illness that causes paralysis) within the last 6 weeks? No Have you had the flu shot in the past? YES Have you ever had a reaction to the flu shot? No Kerri Fagan RN, 09/02/2024 11:21 AM Immunization Administration Documentation Time Out Procedure Performed: Yes Patient Identified (Ask Name/Date of ): Yes Does the patient have a fever greater than 101 degrees today? No Patient allergic to latex? No VFC Stock: Yes, Does this patient qualify for immunization through the C program because he/she (check only one): Yes-is enrolled in Medicaid Immunization(s) verified: Yes, Immunization Name: Flu, VIS Sheet(s) given: Yes Verified Side and Site: Yes Verified Shot(s) with Parent(s)/Patient: Yes documented in this encounter Nursing Notes * Kerri Fagan RN - 09/02/2024 3:16 PM EDT Pt completed treatment without issues. IV removed. Goals: Pt will remain free from injury. Possible barriers to meeting goals: pt is a high fall risk Stability of the patient: Moderately stable - low risk of patient condition declining or worsening Summary regarding today's goals: Met: . Pt remained free from injury during treatment today. Discharged in stable condition with daughter. * Kerri Fagan RN - 09/02/2024 11:55 AM EDT Chair 8, Damian 12/02. Pt presents to clinic via w/c for Venofer infusion. Pt has no acute symptoms/concerns to report today. Pt has previously received IV iron without issues. PIV established; Venofer infusing. Patient instructed on use of heat and massage functions where applicable. Patient shown how to operate the heat function of the chair and to alert nursing staff if the chair feels too warm. Patient instructed on the risk of potential dickey while using the heat function. Safety and Risk for Injury Patient will remain free from injury. Ensure appropriate safety devices are available. Provide and maintain safe environment. documented in this encounter Plan of Treatment Upcoming Encounters Date Type Department Care Team (Late st Contact Info) Description 10/20/2024 11:20 AM EST Anticoagulation Pharmacy, [address] [address] [facility] [place] [address] 10/24/2024 3:00 PM EST Office Visit Pulmonary Medicine, [facility] [address] [facility] [place] [address] Bradley Yepez MD [address] [facility] [address] 12/02/2024 2:30 PM EST Office Visit Interventional Pain Center, [facility] [address] [facility] [place] [address] Isis Mcrae PA-C [facility] [place] [address] 03/13/2025 3:00 PM EDT Office Visit Nephrology, [facility] [address] [facility] [place] [address] David Jaramillo MD [address] [facility] [place] [address] 04/04/2025 2:40 PM EDT Office Visit [facility], [facility] [address] [facility] [place] [address] Suman Simpson MD [address] [place] [address] Health Maintenance Due Date Last Done Comments Adult Wellness Visit 2007 COVID-19 Vaccine ( season) 2024 10/13/2023, 09/12/2022, 10/20/2021, Additional history exists HbA1c 03/28/2025 09/27/2024, 04/0 06/2024, 01/13/2024, Additional history exists Diabetic Eye Exam 04/01/2025 04/01/2024, , 03/30/2023, Additional history exists Depression Screening 06/21/2025 06/21/2024 Diabetic Foot Exam 06/21/2025 06/21/2024, 0 04/16/2023, 06/14/2020, Additional history exists TSH 06/21/2025 06/21/2024, 0601/2023, 12/27/2021, Additional history exists Zoster Vaccines (2 [...] renal disease (HCC) End stage renal disease Need for prophylactic vaccination and inoculation against influenza documented in this encounter Administered Medications Inactive Administered Medications - up to 3 most recent administrations Medication Order MAR Action Action Date Dose Rate Site Iron Sucrose (Venofer) 300 mg in NSS 250 mL ivpb 300 mg, IV Piggyback, ONCE, 1 dose, On Thu09/02/24 at 1245, Administer over 90 MinutesIndications: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),End stage renal disease (HCC) Start Infusion 09/02/2024 11:18 AM EDT 300 mg 180 mL/hr NSS infusion 500 mL, Intravenous, at 50 mL/hr, CONTINUOUS, Starting on Thu09/02/24 at 1215, Until Thu09/02/24 at 1920Indications: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
--- OUTSIDE RECORDS SUMMARY | 2024-11-05 21:44 | External Medical Summary ---
Author Name Unknown Address Unknown Organization [id number]:[facility] [address] [place] [address] Laboratory Report Ordering Provider Test Date Status BRITANY PADILLA 09/27/2024 16:24:00 Final Observation Date Value Abnormality Reference (Units ) Status BUN 09/27/2024 16:24:00 46 Above high normal 6-20 (mg/dL) Final Creatinine 09/27/2024 16:24:00 2.9 Above high normal 0.6-1.2 (mg/dL) Final Glomerular filtration rate/1.73 sq M.predicted [Volume Rate/Area] in Serum, Plasma or Blood by Creatinine-based formula (CKD-EPI) 09/27/2024 16:24:00 21 Below low normal >=60 (mL/min) Final eGFR is calculated based on the CKD-EPI 2020 equation. Sodium 09/27/2024 16:24:00 139 135-146 (m mol/L) Final Potassium 09/27/2024 16:24:00 4.2 3.5-5.1 (m mol/L) Final Cl 09/27/2024 16:24:00 102 98-107 (mm ol/L) Final CO2 09/27/2024 16:24:00 26 22-32 (mmo l/L) Final Anion gap 09/27/2024 16:24:00 11 7-15 (mmol /L) Final Glucose 09/27/2024 16:24:00 176 Above high normal 70 -120 (mg/dL) Final Calcium 09/27/2024 16:24:00 9.7 8.4-10.2 ( mg/dL) Final Performing Location [facility] [address] [place] [address]
--- OUTSIDE RECORDS SUMMARY | 2024-11-05 21:44 | External Medical Summary ---
Author Name Unknown Address Unknown Organization : Laboratory Report Ordering Provider Test Date Status LAURA BRANNON 09/27/2024 15:23:19 Final Therapeutic ranges for non-o perative patients:
Prophylaxsis/treatment of DVT: (Range:2.0-3.0)
Treatment of pulmonary embolism:(Range:2.0-3.0)
Prevention of systemic embolism from:
-tissue heart valves
-acute myocardial infarction
-valvular heart disease
-atrial fibrillation
(Range: 2.0-3.0)
Mechanical prosthetic valves: (Range: 2.5-3.5) Observation Date Value Abnormality Reference (Units ) Status INR in Capillary blood by Coagulation assay 09/27/2024 15:23:19 3.8 (INR) Final Performing Location
--- OUTSIDE RECORDS SUMMARY | 2024-11-05 21:44 | External Medical Summary | Summary of Care ---
Author Name Unknown Organization [facility] Address [address] [place] [address] Phone [phone] Care Team Providers Care Roasterman Name Role Phone Suman Simpson MD Primary Care Provider [phone]- [phone] Reason for Visit * Reason Comments Outpatient Testing Encounter Details Date Type Department Care Team (Late st Contact Info) Description 09/27/2024 3:50 PM EDT Laboratory Laboratory, [place] [address] [place] [address] [place], [facility] [address] [place] [address] Arrived Allergies Active Allergy Reactions Criticality Noted Date Comments Metolazone 07/29/2021 Severe HYponatremia Morphine Sulfate Other (Please comment) 006 hallucinate Oxycodone Other (Please comment) 07/07/2006 Hallucinate Penicillins 07/21/2011 Hallucinate documented as of this encounter (statuses as of 09/27/2024) Medications Medication Sig Dispensed Refills Start Date End Date Status VITAMIN C 500 MG PO TABS one tablet by mouth daily Active MULTIVITAL PO TABS one tablet by mouth daily Active Probiotic Daily Oral Capsule Take 1 Capsule by mouth in the morning. Active Vitamin-B Complex Oral Tablet Take 1 Tablet by mouth in the morning. Active Allopurinol 100 MG Oral Tablet (Zyloprim)Indicatio ns:Gout, unspecified cause, unspecified chronicity, unspecified site Take 1/2 tab by mouth daily 45 Tablet 3 4 Active Bisacodyl 5 MG Oral Tablet Delayed Release (Dulcolax)Indicatio ns:Constipation, unspecified constipation type Take 1 Tablet by mouth daily as needed for Constipation. May take 1 or two tablets 30 Tablet 4 Active Isosorbide Dinitrate 20 MG Oral Tablet (Isordil)Indication s:HTN, goal below 140/90 TAKE ONE TABLET BY MOUTH EVERY MORNING AND TAKE ONE TABLET BY MOUTH BEFORE BEDTIME 180 Tablet 4 Active Levothyroxine Sodium 88 MCG Oral Tablet (Levoxyl)Indication s:Other specified hypothyroidism TAKE ONE TABLET BY MOUTH EVERY MORNING AT LEAST 30 MINUTES PRIOR TO BREAKFAST OR OTHER MEDICATIONS 90 Tablet 4 Active Losartan Potassium 25 MG Oral Tablet (Cozaar) Take 1 Tablet by mouth in the morning. 90 Tablet 4 Active OneTouch Verio In Vitro Strip (Glucose Blood)Indications:T ype 2 diabetes mellitus with hemoglobin A1c goal of less than 8.0% ([facility]) Use up to 4 times a day E11.9 100 Strip 4 Active Pantoprazole Sodium 40 MG Oral Tablet Delayed Release (Protonix)Indicatio ns:Gastroesophageal reflux disease without esophagitis TAKE ONE TABLET BY MOUTH EVERY DAY 30 MINUTES PRIOR TO EATING 90 Tablet 4 Active Polyethylene Glycol 3350 17 GM Oral Packet (Miralax)Indication s:Constipation, unspecified constipation type Take 1 Packet by mouth in the morning. 14 Each 3 4 Active Additional Information Patient not taking.Reported on 08/10/2024 Sennosides-Docusate Sodium 8.6-50 MG Oral Tablet (Senokot-S)Indicati ons:Constipation, unspecified constipation type Take 1 Tablet by mouth at bedtime as needed for Constipation. May increase to 2 as needed 30 Tablet 4 Active Tamsulosin HCl 0.4 MG Oral Capsule (Flomax)Indications :BPH with obstruction/lower urinary tract symptoms Take 1 Capsule by mouth in the morning. 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 360 Tablet 3 4 Active Warfarin Sodium 2.5 MG Oral Tablet (Jantoven) TAKE 1-2 TABLETS BY MOUTH DAILY. According to anticoagulation clinic 180 Tablet 3 4 Active Multiple Vitamins Oral Tablet Take 1 Tablet by mouth in the morning. 3 Active Silver sulfADIAZINE 1 % External Cream (Silvadene)Indicati ons:Venous stasis dermatitis Apply topically to affected area daily. 85 g 1 4 Active Additional Information Patient not taking.Reported on 08/10/2024 Ondansetron 4 MG Oral Tablet Disintegrating (Zofran)Indications :Nausea Place 1 Tablet on tongue every 8 hours as needed for Nausea. dissolve on tongue. 20 Tablet 4 Active Additional Information Patient not taking.Reported on 09/27/2024 Benzonatate 100 MG Oral CapsuleIndications: COPD, group B, by GOLD 2017 classification ([facility]) Take 1 Capsule by mouth 3 times a day as needed for Cough. 30 Capsule 1 4 Active Vitamin D3 25 MCG (1000 UT) Oral Tablet (Vitamin D3) Take 1 Tablet by mouth in the morning. 30 Tablet 5 4 Active Breo Ellipta 100-25 MCG/ACT Inhalation Aerosol Powder Breath ActivatedIndication s:COPD, group B, by GOLD 2017 classification ([facility]) Inhale 1 Puff by mouth in the morning. 180 Each 3 4 Active Metoprolol Succinate ER 100 MG Oral Tablet Extended Release 24 Hour (toPROL XL)Indications:HTN, goal below 140/90 TAKE ONE TABLET BY MOUTH EVERY MORNING AND AT BEDTIME 180 Tablet 1 4 Active glipiZIDE 5 MG Oral Tablet (Glucotrol)Indicati ons:Type 2 diabetes mellitus with hemoglobin A1c goal of less than 8.0% ([facility]) Take 1 Tablet by mouth in the morning. 90 Tablet 1 4 Active Gabapentin 100 MG Oral Capsule (Neurontin) TAKE ONE CAPSULE BY MOUTH TWICE A DAY 180 Capsule 1 4 Active Hospital, Clinic, or Other Facility Administered Medication Ordered Dose Route Frequency Start Date End Date Status Albuterol Sulfate (Proventil) (5 MG/ML) 0.5% *conc* inhalation solution 2.5 mgIndications:COPD, group B, by GOLD 2017 classification ([facility]),Dyspnea and respiratory abnormalities 2.5 mg NEBULIZER PRN 08/29/2024 08/29/2025 Active Albuterol Sulfate (Proventil) (2.5 MG/3ML) 0.083% inhalation solution 2.5 mgIndications:COPD, group B, by GOLD 2017 classification (HCC),Dyspnea and respiratory abnormalities 2.5 mg NEBULIZER PRN 08/29/2024 08/29/2025 Active documented as of this encounter (statuses as of 09/27/2024) Active Problems Problem Noted Date Diagnosed Date Anemia in stage 4 chronic kidney disease 024 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) 01/19/2024 Secondary hyperparathyroidism of renal origin Renal osteodystrophy 01/19/2024 Acquired absence of other left toe(s) 09/18/2023 Last Assessment & Plan: -Metatarsal 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 09/18/2023 Last Assessment & Plan: -, , Thursday COPD, group B, by GOLD 2017 classification 08/12 Rheumatoid arthritis 02/18/2023 Other specified hypothyroidism 01/27/2023 Diabetic neuropathy 07/30/2022 Other iron deficiency anemias 02/03/2022 End stage renal disease 12/27/2021 Thrombocytopenia 09/13/2021 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 08/08/2021 Last Assessment & Plan: "RED FLAG" HF Symptoms: Leg Swelling (Examples: [...] Anemia Additional Comments Currently getting HD on -Thu Hyponatremia 08/08/2021 Type 2 diabetes mellitus wit h stage 5 chronic kidney disease not on chronic dialysis, without long-term current use of insulin 06/26/2021 Atrial fibrillation, unspecified type 06/28/2020 Last Assessment & Plan: -Warfarin for stroke prophylaxis -Metoprolol for rate control Diabetes mellitus with nephropathy 06/06/2019 Pulmonary HTN 06/06/2019 HTN, goal below 140/90 04/21/2014 Type 2 diabetes mellitus wit h hemoglobin A1c goal of less than 8.0% 11/07/2013 Overview: ICD-10 update of inactive term History of rheumatoid arthritis 06/24/2013 ABRAN (obstructive sleep apnea) 05/24/2013 Overview: RDI 25.4 Low oxygen saturation 80%. Pt spent 22 minutes with oxygen saturation below 88%. Does not wear CPAP GUALLPA (dyspnea on exertion) 06/24/2010 Overview: ICD-10 update of inactive term Deviated nasal septum 06/24/2010 Degeneration of cervical intervertebral disc Gastroesophageal reflux disease without esophagi tis 03/28/2010 Last Assessment & Plan: -Appears clinically stable -Pantoprazole continued History of colonic polyps 01/08/2010 Overview: adenomatous tissue--repeat 5 years Gouty arthropathy 09/13/2009 Overview: ICD-9 Code Update ICD-10 update of inactive term Advanced care planning/counseling discussion Knee joint replacement status 05/27/2006 Diaphragmatic hernia Nephrotic range proteinuria Sensorineural hearing loss, bilateral documented as of this encounter (statuses as of 09/27/2024) Resolved Problems Problem Noted Date Diagnosed Date Resolved Date Hypertensive chronic kidney disease with stage 5 chronic kidney disease or end stage renal disease 01/27/2023 08/24/2023 Atherosclerosis of algaaciq 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 09/13/2021 01/19/2024 JESSICA (renal osteodystrophy) 06/26/2021 0 03/02/2024 Overview: Duplicated on pl CKD (chronic kidney disease) stage 5, GFR less than 15 ml/min 06/28/2020 06/26/2021 Hypertensive heart and kidne y disease without heart failure and with stage 4 chronic kidney disease 06/06/2019 01/27/2023 Diabetes mellitus with stage 4 chronic kidney disease 05/31/2019 09/13/2021 Hyperparathyroidism, secondary renal 09/27/2018 03/02/2024 Overview: Duplicated on pl Kidney disease, chronic, sta ge IV (GFR 15-29 ml/min) 09/07/2018 06/09/2019 Obstructive sleep apnea syndrome 12/19/2013 08/27/2017 Daytime somnolence 12/19/2013 7 High triglycerides 09/29/2011 3 Overview: DUPLICATE Type 2 diabetes mellitus wit h hemoglobin A1c goal of less than 7.0% 07/16/2011 11/07/2013 Overview: ICD-10 update of inactive term Kidney disease, chronic, sta ge III (GFR 30-59 ml/min) 01/28/2011 09/07/2018 Hypothyroidism 08/24/2010 03/02/2024 Overview: More specified condition on pl HTN, goal below 140/90 08/24/201001/04 Chronic otitis externa 06/24/201008/27 Hypertrophy of nasal turbinates 06/24/2010 09/15/2021 Esophageal reflux 06/24/2010 08/27/2017 Irritable bowel syndrome 06/13/2010 Abnormal levels of other serum enzymes 06/13/2010 08/27/2017 Overview: ICD-10 update of inactive term Abdominal pain, generalized 03/28/2010 08/27/2017 Abnormal results of liver function studies 03/28/2010 08/27/2017 Knee joint replacement status 07/17/2006 01/04/2009 Overview: Resolved per Duplicate Protocol #2. Type 2 diabetes mellitus wit h hemoglobin A1c goal of less than 7.0% 02/20/2005 03/27/2009 Overview: ICD-10 update of inactive term Gouty arthropathy 12/23/2002 09/13/2009 Overview: ICD-9 Code Update ICD-10 update of inactive term CHRONIC RENAL FAILURE 12/23/20022010 HYPER RENAL DISEASE,MALIGN;W/O RENAL FAILURE 0 08/27/2017 Arthritis, rheumatoid 2012 Esophagitis 08/27/2017 Overview: ICD-10 update of inactive term Insomnia 08/27/2017 Overview: ICD-10 update of inactive term Presbyacusis 08/27/2017 Other acute otitis externa 0 01/25/2009 Overview: Resolved per Benign Acute Dxs Protocol #3 Allergic rhinitis 06/06/2019 NON ALLERGIC RHINITIS 2020 Chronic pharyngitis 09/15/20 21 Chronic laryngitis documented as of this encounter (statuses as of 09/27/2024) Immunizations Name Administration Dates Next Due COVID-19 mRNA, LNP-s, No Pre serve, 2-Dose Series (OpenFeint) 10/20/2021,02/28/2021,02/07/2021 COVID-19, MRNA-LNP, 23-24, P F, 30 MCG/0.3 mL, 12 YRS AND ABOVE, [facility] 10/13/2023 Covid-19, Mrna, Lnp-s, [...] in the Last Year Never true 12/01/2019 Utilities Answer Date Recorded Do you have trouble paying y our heating, water, or electric bill? (Adult - for ages 18 years and over) Not on file 05/17/2024 Is your family able to pay t he heat, water, or electric bill? (Household - for ages 0-17 years) Not on file 05/17/2024 Does your family have access to good internet? (Household - for ages 0-17 years) Not on file 05/17/2024 Social Connections Answer Date Recorded How often do you feel lonely or isolated from those around you? (Adult - for ages 18 years and over) Not on file 05/17/2024 Sex and Gender Information Value Date Recorded Sex Assigned at Male 12/01/2019 10:59 AM EST Gender Identity Male 12/01/2019 10:59 AM EST Sexual Orientation Straight 06/06/2019 10 :20 AM EDT Job Start Date Occupation Industry Not on file Not on file Not on file documented as of this encounter Functional Status Functional Status Response Date of Assess ment Are you deaf or do you have serious difficulty h earing? No 02/09/2019 Are you blind or do you have serious difficulty seeing, even when wearing glasses? No 02/09/2019 Do you have serious difficul ty walking or climbing stairs? (5 years old or older) No 02/09/2019 Do you have difficulty dress ing or bathing? (5 years old or older) No 02/09/2019 Because of a physical, menta l, or emotional condition, do you have difficulty doing errands alone such as visiting a doctor s office or shopping? (15 years old or older) No 02/10/20 19 Cognitive Status Response Date of Assessm ent Because of a physical, menta l, or emotional condition, do you have serious difficulty concentrating, remembering, or making decisions? (5 years old or older) No 02/09/2019 documented as of this encounter Plan of Treatment Upcoming Encounters Date Type Department Care Team (Late st Contact Info) Description 10/11/2024 3:00 PM EST Office Visit Pulmonary Medicine, [address] [place] [address] Bradley Yepez MD [address] [place] [address] 10/20/2024 3:20 PM EST Anticoagulation Pharmacy, [place] [address] [place] [address] [facility] [address] [place] [address] 12/02/2024 2:30 PM EST Office Visit Interventional Pain Center, [facility] [address] [facility] [place] [address] Isis Mcrae PA-C [address] [facility] [address] 03/13/2025 3:00 PM EDT Office Visit Nephrology, [facility] [address] [facility] [place] [address] David Jaramillo MD [address] [facility] [place] [address] 04/04/2025 2:40 PM EDT Office Visit Family [facility], [place] [address] [place] [phone] Suman Simpson MD [address] [place], [place] [id number] Health Maintenance Due Date Last Done Comments Adult Wellness Visit 2007 COVID-19 Vaccine ( season) 2024 10/13/2023, 09/12/2022, 10/20/2021, Additional history exists HbA1c 09/06/2024 03/07/2024, 12/31, 05/12/2023, Additional history exists Diabetic Eye Exam 04/01/2025 [...] Agents on File Name Relationship Healthcare Agent [facility] p Communication Latia Trejo Spouse Health Care Agent Care Teams Roasterman Relationship Specialty Start Date End Date Suman Simpson MD [address] [place] [address] PCP - General 01/26/03 documented as of this encounter
--- OUTSIDE RECORDS SUMMARY | 2024-11-05 21:44 | External Medical Summary | Summary of Care ---
Author Name Unknown Organization [facility] Address [address] [place] [address] Phone [phone] Care Team Providers Care Electrical Prospecting Supervisor Name Role Phone Suman Simpson MD Primary Care Provider +1- [phone] Encounter Details Date Type Department Care Team (Late st Contact Info) Description 06/27/2024 Telephone [facility] [address] [place] [address] MarchGreg MD [address] [place] [address] Allergies Active Allergy Reactions Criticality Noted Date Comments Metolazone 07/29/2021 Severe HYponatremia Morphine Sulfate Other (Please comment) 006 hallucinate Oxycodone Other (Please comment) 07/07/2006 Hallucinate Penicillins 07/21/2011 Hallucinate documented as of this encounter (statuses as of 09/26/2024) Medications Medication Sig Dispensed Refills Start Date [...] tab by mouth daily 45 Tablet 3 03/07/2024 Active Bisacodyl 5 MG Oral Tablet Delayed Release (Dulcolax)Indicatio ns:Constipation, unspecified constipation type Take 1 Tablet by mouth daily as needed for Constipation. May take 1 or two tablets 30 Tablet 03/07/2024 Active Isosorbide Dinitrate 20 MG Oral Tablet (Isordil)Indication s:HTN, goal below 140/90 TAKE ONE TABLET BY MOUTH EVERY MORNING AND TAKE ONE TABLET BY MOUTH BEFORE BEDTIME 180 Tablet 03/07/2024 Active Levothyroxine Sodium 88 MCG Oral Tablet (Levoxyl)Indication s:Other specified hypothyroidism TAKE ONE TABLET BY MOUTH EVERY MORNING AT LEAST 30 MINUTES PRIOR TO BREAKFAST OR OTHER MEDICATIONS 90 Tablet 03/07/2024 Active Losartan Potassium 25 MG Oral Tablet (Cozaar) Take 1 Tablet by mouth in the morning. 90 Tablet 03/07/2024 Active OneTouch Verio In Vitro Strip (Glucose Blood)Indications:T ype 2 diabetes mellitus with hemoglobin A1c goal of less than 8.0% ([facility]) Use up to 4 times a day E11.9 100 Strip 03/07/2024 Active Pantoprazole Sodium 40 MG Oral Tablet Delayed Release (Protonix)Indicatio ns:Gastroesophageal reflux disease without esophagitis TAKE ONE TABLET BY MOUTH EVERY DAY 30 MINUTES PRIOR TO EATING 90 Tablet 03/07/2024 Active Polyethylene Glycol 3350 17 GM Oral Packet (Miralax)Indication s:Constipation, unspecified constipation type Take 1 Packet by mouth in the morning. 14 Each 03/07/2024 Active Additional Information Patient not taking.Reported on 08/10/2024 Sennosides-Docusate Sodium 8.6-50 MG Oral Tablet (Senokot-S)Viktoriyati ons:Constipation, unspecified constipation type Take 1 Tablet by mouth at bedtime as needed for Constipation. May increase to 2 as needed 30 Tablet 03/07/2024 Active Tamsulosin HCl 0.4 MG Oral Capsule (Flomax)Indications :BPH with obstruction/lower urinary tract symptoms Take 1 Capsule by mouth in the morning. 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 360 Tablet 3 05/13/2024 Active Warfarin Sodium 2.5 MG Oral Tablet (Jantoven) TAKE 1-2 TABLETS BY MOUTH DAILY. According to anticoagulation clinic 180 Tablet 3 05/25/2024 Active Multiple Vitamins Oral Tablet Take 1 Tablet by mouth in the morning. 09/01/2023 Active Silver sulfADIAZINE 1 % External Cream (Silvadene)Indicati ons:Venous stasis dermatitis Apply topically to affected area daily. 85 g 1 06/21/2024 Active Additional Information Patient not taking.Reported on 08/10/2024 documented as of this encounter (statuses as of 09/26/2024) Active Problems Problem Noted Date Diagnosed Date [...] Anemia Additional Comments Currently getting HD on --Thu Hyponatremia 08/08/2021 Type 2 diabetes mellitus wit [...] as of this encounter (statuses as of 09/26/2024) Resolved Problems Problem Noted Date Diagnosed Date Resolved Date Hypertensive chronic kidney disease with stage 5 chronic kidney disease or end stage renal disease 01/27/2023 08/24/2023 Atherosclerosis of marshall 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 09/13/2021 [...] as of this encounter (statuses as of 09/26/2024) Immunizations Name Administration Dates Next Due COVID-19 mRNA, LNP-s, No Pre serve, 2-Dose Series (Crocs) 10/20/2021,02/28/2021,02/07/2021 COVID-19, MRNA-LNP, 23-24, P F, 30 MCG/0.3 mL, 12 YRS AND ABOVE, IM ([facility]) 10/13/2023 Covid-19, Mrna, Lnp-s, Pf, B ivalent, 30 Mcg, IM, 12 yrs and above (Pfizer) 09/12/2022 HEPATITIS B VACCINE, RECOMB, 20 MCG/ML, ADULT (HEPLISAV-B) 09/19/2023 Pneumococcal Conjugate Vacc, 13 Valent (Prevnar) 08/02/2015 Pneumococcal Polysaccharide PPV23 (Pneumovax) 08/31/2012 Seasonal Influenza Vac., MDV , IM, 0.5 mL (Fluzone) 08/26/2016,08/31/2012,09/12/2011,09/05,12/18/2009,10/09/2008,09/15/2007 ,09/22/2006 Seasonal Influenza Virus Vac cine, Unspecified Formulation 09/10/2020,12/01/2019,08/26/2018,08/27,08/26/2016,08/31/2012,09/12/2011 ,09/05/2010,12/18/2009,10/09/2008,08/30,09/22/2006 Seasonal Influenza, PF, 6 M & above, [...] No 02/09/2019 documented as of this encounter Miscellaneous Notes * Telephone Encounter - Linda Yousif, MED ASSIST - 06/27/2024 12:47 PM EDT Spoke with the patient and gave him the information below. Patient voiced understanding. ----- Message from Greg Rodrigues MD sent at 06/27/2024 7:30 AM EDT ----- No evidence of osteomyelitis on xray. Will follow up in office 06/28/2024. Follow up with podiatry when able. Continue antibiotics. Greg Rodrigues MD documented in this encounter Plan of Treatment Upcoming Encounters Date Type Department Care Team (Late st Contact Info) Description 09/27/2024 3:20 PM EDT Anticoagulation Pharmacy, [place] [address] [place] [address] [facility] [address] [place] [address] 09/27/2024 4:00 PM EDT Office Visit Family [facility], [place] [address] [place] [address] Suman Simpson MD [address] [place] [address] 10/11/2024 3:00 PM EST Office Visit Pulmonary Medicine, [facility] [address] [facility] [place] [address] Bradley Yepez MD [address] [place] [facility] [place] [address] 12/02/2024 2:30 PM EST Office Visit Interventional Pain Center, [facility] [address] [facility] [place] [address] Isis Mcrae PA-C [address] [facility] [place] [address] 03/13/2025 3:00 PM EDT Office Visit Nephrology, [facility] [address] [address] David Jaramillo MD [address] [place] [address] Health Maintenance Due Date Last Done Comments [...] ASSESSMENT COMPLETED IN PAST YEAR FOR COPD 09/16/2025 09/16/2024 DTap/Tdap Vaccines (4 - Td or Tdap) [...] Agents on File Name Relationship Healthcare Agent Relationsnd p Communication Latia Trejo Spouse Health Care Agent Care Teams Electrical Prospecting Supervisor Relationship Specialty Start Date End Date Suman Simpson MD [address] [facility] [place] [address] PCP - General 01/26/03 documented as of this encounter
--- OUTSIDE RECORDS SUMMARY | 2024-11-05 21:44 | External Medical Summary ---
Author Name Unknown Address Unknown Organization [id number]:[facility] - [address] [place] [address] Laboratory Report Ordering Provider Test Date Status BRITANY PADILLA 09/27/2024 16:24:00 Final Observation Date Value Abnormality Reference (Units ) Status Ferritin 09/27/2024 16:24:00 543 Above high normal 30 -400 (ng/mL) Final Performing Location [facility] - [address] [place] [address]
--- OUTSIDE RECORDS SUMMARY | 2024-11-05 21:44 | External Medical Summary | Summary of Care ---
Author Name Unknown Organization [facility] Address [address] [place] [address] Phone [phone] Care Team Providers Care Choral Director Name Role Phone Suman Simpson MD Primary Care Provider [phone] Reason for Visit * Reason Comments Follow Up 6 month follow up.Pt still experiencing SOB and pain in shoulders. Encounter Details Date Type Department Care Team (Latest Contact Info) Description 09/27/2024 4:00 PM EDT Office Visit [facility] [address] [place] [address] Suman Simpson MD [address] [place] [address] Type 2 diabetes mellitus with hemoglobin A1c goal of less than 8.0% ([facility])*; 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) ([facility]); HTN, goal below 140/90; COPD, group B, by GOLD 2017 classification ([facility]); Shortness of breath; Anemia, unspecified type; Primary osteoarthritis of both shoulders Allergies Active Allergy Reactions Criticality Noted Date [...] 1/2 tab by mouth daily 45 Tablet 4 Active Bisacodyl 5 MG Oral Tablet [...] hemoglobin A1c goal of less than 8.0% ([facility]) Use up to 4 times a day E11.9 100 Strip 4 Active Pantoprazole Sodium 40 MG Oral Tablet Delayed Release (Protonix)Indicatio ns:Gastroesophageal reflux disease without esophagitis TAKE ONE TABLET BY MOUTH EVERY DAY 30 MINUTES PRIOR TO EATING 90 Tablet 3 4 Active Polyethylene Glycol 3350 17 GM Oral Packet (Miralax)Indication s:Constipation, unspecified constipation type Take 1 Packet by mouth in the morning. 14 Each 4 Active Additional Information Patient not taking.Reported [...] chronic kidney disease not on chronic dialysis ([facility]) Take 2 tablets in AM [...] COPD, group B, by GOLD 2017 classification ([facility]) Take 1 Capsule by mouth 3 times a day as needed for Cough. 30 Capsule 1 4 Active Vitamin D3 25 MCG (1000 UT) Oral Tablet (Vitamin D3) Take 1 Tablet by mouth in the morning. 30 Tablet 5 4 Active Breo Ellipta 100-25 MCG/ACT Inhalation Aerosol Powder Breath ActivatedIndication s:COPD, group B, by GOLD 2017 classification ([facility]) Inhale 1 Puff by mouth [...] hemoglobin A1c goal of less than 8.0% ([facility]) Take 1 Tablet by mouth in the morning. 90 Tablet 1 4 Active Gabapentin 100 MG Oral Capsule (Neurontin) TAKE ONE CAPSULE BY MOUTH TWICE A DAY 180 Capsule 1 Active Hospital, Clinic, or Other Facility Administered Medication Ordered Dose Route Frequency Start Date End Date Status Albuterol Sulfate (Proventil) (5 MG/ML) 0.5% *conc* inhalation solution 2.5 mgIndications:COPD, group B, by GOLD 2017 classification ([facility]),Dyspnea and respiratory abnormalities 2.5 mg NEBULIZER PRN 08/29/2024 08/29/2025 Active Albuterol Sulfate (Proventil) (2.5 MG/3ML) 0.083% inhalation solution 2.5 mgIndications:COPD, group B, by GOLD 2017 classification ([facility]),Dyspnea and respiratory abnormalities 2.5 mg [...] Anemia Additional Comments Currently getting HD on Hyponatremia 08/08/2021 Type 2 diabetes mellitus wit [...] stage renal disease 01/27/2023 08/24/2023 Atherosclerosis of [place] 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 10/13/2023 Covid-19, Mrna, Lnp-s, Pf, B ivalent, 30 Mcg, IM, 12 yrs and above ([employer]) 09/12/2022 HEPATITIS B VACCINE, RECOMB, 20 MCG/ML, [...] on file documented as of this encounter Last Filed Vital Signs Vital Sign Reading Time Taken Comments Blood Pressure 150/72 09/27/2024 3:36 PM EDT Pulse 54 09/27/2024 3:36 PM EDT Temperature 36.5 C (97.7 F) 09/27/2024 3:36 PM ED T Respiratory Rate 16 09/27/2024 3:36 PM EDT Oxygen Saturation 98% 09/27/2024 3:36 PM EDT Inhaled Oxygen Concentration - - Weight 96.7 kg (213 lb 3.2 oz) 09/27/2024 3:36 P M EDT Height 163.8 cm (5' 4.5") 09/27/2024 3:36 PM EDT Body Mass Index 36.03 09/27/2024 3:36 PM EDT documented in this encounter Functional Status Functional Status Response [...] No 02/09/2019 documented as of this encounter Progress Notes * Suman Simpson MD - 09/27/2024 4:00 PM EDT Subjective: Tre Trejo is a 84 year old male here today for Chief Complaint Patient presents with Follow Up 6 month follow up. Pt still experiencing SOB and pain in shoulders. Patient presents for routine six-month return. His main complaint is ongoing bilateral shoulder pain. He did try steroid injections and gel injections. Did not get adequate relief. Has been offered areferral to pain management to consider nerve ablation. That visit is in November. Patient is skeptical that that will help and is wondering about having shoulder replacements. He understands that hismedical issues put him at significant increased risk. He is also complaining of ongoing shortness of breath. Has seen Pulmonary Medicine. Had recent pulmonary function tests which we reviewed today. Had a recent chest x-ray which we reviewed today. He has a follow-up in 2 weeks with Pulmonary Medicine. He has also been found to have an anemia and irondeficiency. Did receive 3 iron infusions. Has not had repeat lab since and is agreeable to having labs updated today. Past Medical History: Diagnosis Date Allergic rhinitis 2006 Arthritis, rheumatoid (HCC) MUNOZ'S ESOPHAGUS 06/07/10 hiatal hernia bxs done--Barretts repeat in one yr Benign neoplasm of colon 01/08/10 adenomatous tissue--repeat 5 years Chronic laryngitis 2006 Chronic pharyngitis 2006 CHRONIC RENAL FAILURE Diaphragmatic hernia Esophagitis, unspecified Gouty arthropathy HTN, goal below 140/90 Insomnia, unspecified NON ALLERGIC RHINITIS 2006 Other acute otitis externa 2006 Presbyacusis 2006 Restless leg syndrome by sleep study Sensorineural hearing loss, bilateral 2006 Sleep apnea Past Surgical History: Procedure Laterality [...] LUMBAR SACRAL NERVE IMAGING SINGLE performed by [facility] Cee, DO at OR [facility] GRAFT EAR CARTILAGE TO NOSE/EAR N/A 02/09/2019 GRAFT EAR CARTILAGE TO EAR OR NOSE performed by Amanda Marcelino MD at OR [facility] INFORMATION 1988 ear surg, nerve cut dysequilibrium left [facility] INFORMATION amputation tip rt index finger, accident INFORMATION back surgery INJECT DX/THER SUBSTANCE INTERLAMINAR LUMBAR/SACRAL W IMAGE GUIDE 06/27/2019 INJECTION SPINE LUMBAR OR SACRAL performed by [facility] Cee, DO at OR [facility] INJECT DX/THER SUBSTANCE INTERLAMINAR LUMBAR/SACRAL W IMAGE GUIDE 07/14/2019 INJECTION SPINE LUMBAR OR SACRAL performed by [facility] Cee, DO at OR [facility] KNEE ARTHROSCOPY, DIAGNOSTIC Knee Arthroscopy right Dr Wang L-/S-SPINE PARAVERTEBRAL FACET INJ,1 LEVEL 08/18/2019 L-/S-SPINE PARAVERTEBRAL FACET INJ, 1 LEVEL performed by [facility] Cee, DO at OR [facility] L-/S-SPINE PARAVERTEBRAL FACET INJ,1 LEVEL 09/05/2019 L-/S-SPINE PARAVERTEBRAL FACET INJ, 1 LEVEL performed by [facility] Cee, DO at OR [facility] NASAL SEPTUM CARTILAGE FOR GRAFT N/A 02/09/2019 OBTAIN CARTILAGE GRAFT NASAL SEPTUM performed by Amanda Marcelino MD at OR [facility] RECONSTRUCTION OF NOSE/SEPTUM N/A 02/09/2019 RHINOPLASTY COMPLETE INCLUDING MAJOR SEPTAL REPAIR performed by Amanda Marcelino MD at OR [facility] REMOVE CATARACT, INSERT LENS PROSTH Bilateral 2017 Dr Vinson REMOVE NECK SPINE LAMINA, 1-2 SEGS Cervical Laminectomy [facility] REMOVE RIB CARTILAGE FOR GRAFT N/A 02/09/2019 OBTAIN CARTILAGE GRAFT COSTOCHONDRAL performed by Amanda Marcelino MD at OR [facility] REMOVE TONSILS & ADENOIDS, UNDER 12 Tonsillectomy/Adenoids,<12 Y/O REPAIR INGUINAL HERNIA, UNDER AGE 5 Inguinal Hernia Repair,6mo-5yr,Reduc REPAIR RUPTURED ROTATOR CUFF, CHRON Rotator Repair Cuff,Chronic left REVISION OF PALATE, PHARYNX/UVULA 03/28/2014 PALATOPHARYNGOPLASTY performed by Too Medina MD at OR [facility] SMALL BOWEL ENDOSCOPY W/BX 06/07/2010 hiatal hernia bxs done--Barretts repeat in one yr Review of patient's allergies indicates: Allergen Reactions Metolazone Severe HYponatremia Morphine [Morphine Sulfate] Other (Please comment) hallucinate Oxycodone [Oxycodone] Other (Please comment) Hallucinate Penicillins Hallucinate Current Outpatient Medications Medication Sig Dispense Refill VITAMIN C 500 MG PO TABS one tablet by mouth daily MULTIVITAL PO TABS one tablet by mouth daily Allopurinol 100 MG Oral Tablet (Zyloprim) Take 1/2 tab by mouth daily 45 Tablet 3 Bisacodyl 5 MG Oral Tablet Delayed Release (Dulcolax) Take 1 Tablet by mouth daily as needed for Constipation. May take 1 or two tablets 30 Tablet 11 Isosorbide Dinitrate 20 MG Oral Tablet (Isordil) TAKE ONE TABLET BY MOUTH EVERY MORNING AND TAKE ONE TABLET BY MOUTH BEFORE BEDTIME 180 Tablet 3 Levothyroxine Sodium 88 MCG Oral Tablet (Levoxyl) TAKE ONE TABLET BY MOUTH EVERY MORNING AT LEAST 30 MINUTES PRIOR TO BREAKFAST OR OTHER MEDICATIONS 90 Tablet 3 Losartan Potassium 25 MG Oral Tablet (Cozaar) Take 1 Tablet by mouth in the morning. 90 Tablet 3 OneTouch Verio In Vitro Strip (Glucose Blood) Use up to 4 times a day E11.9 100 Strip 11 Pantoprazole Sodium 40 MG Oral Tablet Delayed Release (Protonix) TAKE ONE TABLET BY MOUTH EVERY DAY30 MINUTES PRIOR TO EATING 90 Tablet 3 Tamsulosin HCl 0.4 MG Oral Capsule (Flomax) Take 1 Capsule by mouth in the morning. 90 Capsule 3 Torsemide 100 MG Oral Tablet (Demadex) Take 2 tablets in AM and 2 tablet in PM. 360 Tablet 3 Warfarin Sodium 2.5 MG Oral Tablet (Jantoven) TAKE 1-2 TABLETS BY MOUTH DAILY. According to anticoagulation clinic 180 Tablet 3 Multiple Vitamins Oral Tablet Take 1 Tablet by mouth in the morning. Benzonatate 100 MG Oral Capsule Take 1 Capsule by mouth 3 times a day as needed for Cough. 30 Capsule 1 Vitamin D3 25 MCG (1000 UT) Oral Tablet (Vitamin D3) Take 1 Tablet by mouth in the morning. 30 Tablet 5 Breo Ellipta 100-25 MCG/ACT Inhalation Aerosol Powder Breath Activated Inhale 1 Puff by mouth in the morning. 180 Each 3 Metoprolol Succinate ER 100 MG Oral Tablet Extended Release 24 Hour (toPROL XL) TAKE ONE TABLET BY MOUTH EVERY MORNING AND AT BEDTIME 180 Tablet 1 glipiZIDE 5 MG Oral Tablet (Glucotrol) Take 1 Tablet by mouth in the morning. 90 Tablet 1 Gabapentin 100 MG Oral Capsule (Neurontin) TAKE ONE CAPSULE BY MOUTH TWICE A DAY 180 Capsule 1 Probiotic Daily Oral Capsule Take 1 Capsule by mouth in the morning. (Patient not taking: Reported on 08/10/2024) Vitamin-B Complex Oral Tablet Take 1 Tablet by mouth in the morning. (Patient not taking: Reported on 06/21/2024) Polyethylene Glycol 3350 17 GM Oral Packet (Miralax) Take 1 Packet by mouth in the morning. (Patient not taking: Reported on 08/10/2024) 14 Each 3 Sennosides-Docusate Sodium 8.6-50 MG Oral Tablet (Senokot-S) Take 1 Tablet by mouth at bedtime as needed for Constipation. May increase to 2 as needed 30 Tablet 11 Silver sulfADIAZINE 1 % External Cream (Silvadene) Apply topically to affected area daily. (Patientnot taking: Reported on 08/10/2024) 85 g 1 Ondansetron 4 MG Oral Tablet Disintegrating (Zofran) Place 1 Tablet on tongue every 8 hours as needed for Nausea. dissolve on tongue. (Patient not taking: Reported on 09/27/2024) 20 Tablet 0 Current Facility-Administered Medications Medication Dose Route Frequency Provider Last Rate Last Admin Albuterol Sulfate (Proventil) (5 MG/ML) 0.5% *conc* inhalation solution 2.5 mg 2.5 mg Nebulizer PRN Albuterol Sulfate (Proventil) (2.5 MG/3ML) 0.083% inhalation solution 2.5 mg 2.5 mg Nebulizer PRN 2.5 mg at 09/15/24 1151 Objective: BP 150/72 | Pulse 54 | Temp 36.5 C (97.7 F) (Tympanic) | Resp 16 | Ht 1.638 m (5' 4.5") | Wt 96.7 kg (213 lb 3.2 oz) | SpO2 98% | BMI 36.03 kg/m | BSA 2.1 m GEN: NAD CHEST: CTA B - no current wheeze, rhonchi, rales CV: RRR ABD: Soft, NT/ND, No HSM, NABS EXT: No c,c,e Assessment and Plan: Type 2 diabetes mellitus with hemoglobin A1c goal of less than 8.0% ([facility]) (Primary) 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) ([facility]) - update labs today. Continue current medications. HTN, goal below 140/90 -continue current meds and follow up with Nephrology as scheduled COPD, group B, by GOLD 2017 classification ([facility]) Shortness of breath Anemia, unspecified type - FERRITIN; Future; Expected date: 09/27/2024 - IRON SCREEN, INCLUDING TIBC; Future; Expected date: 09/27/2024 - CBC; Future; Expected date: 09/27/2024 - FERRITIN - IRON SCREEN, INCLUDING TIBC - CBC -shortness of breath is most likely multifactorial including contributions of chronic obstructive pulmonary disease, restrictive lung disease, age, anemia, cardiac function. Suggest to keep follow-upwith Pulmonary Medicine. Will update labs. Call for new or worsening symptoms. Primary osteoarthritis of both shoulders -not a good surgical candidate. Will review with his team if surgery is even a consideration. Follow Up: Return in about 6 months (around 03/28/2025) for recheck. | For: recheck 38 min with pt and documentation Suman Simpson MD * Linda Yousif, MED ASSIST - 09/27/2024 3:32 PM EDT Hemoglobin a1c ordered today. Provider aware. Linda Yousif MED ASSIST documented in this encounter Nursing Notes * Linda Yousif MED ASSIST - 09/27/2024 3:42 PM EDT The patient has been properly identified by confirmation of name and date of . Chief Complaint Patient presents with Follow Up 6 month follow up. Pt still experiencing SOB and pain in shoulders. documented in this encounter Plan of Treatment Upcoming Encounters Date Type Department Care Team (Late st Contact Info) Description 10/11/2024 3:00 PM EST Office Visit Pulmonary Medicine, [facility] [address] [facility] [place] [address] [facility]pez [facility] [address] [facility] [address] 10/20/2024 3:20 PM EST Anticoagulation Pharmacy, [place] [address] [place] [address] [facility] [address] [place] [address] 12/02/2024 2:30 PM EST Office Visit Interventional Pain Center, [facility] [address] [facility] [place] [address] Isis Mcrae PA-C [address] [facility] [place] [address] 03/13/2025 3:00 PM EDT Office Visit Nephrology, [facility] [address] [place] [address] David Jaramillo MD [address] [place] [address] 04/04/2025 2:40 PM EDT Office Visit [facility] [address] [place] [address] Suman Simpson MD [address], [place] [id number] Pending Results Name Type Priority Associated Diagnoses Date /Time HEMOGLOBIN A1C Lab Routine 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) (HCC) 09/27/2024 4:24 PM EDT BNP, NT-PRO Lab Routine Shortness of breath 09/27/2024 4:24 PM EDT BASIC METABOLIC PANEL Lab Routine Type 2 diabetes mellitus with hemoglobin A1c goal of less than 8.0% (HCC) 09/27/2024 4:24 PM EDT FERRITIN Lab Routine Anemia, unspecified type 09/27/2024 4:24 PM EDT IRON SCREEN, INCLUDING TIBC Lab Routine Anemia, unspecified type 09/27/2024 4:24 PM EDT CBC Lab Routine Anemia, unspecified type 09/27/2024 4:24 PM EDT Scheduled Orders Name Type Priority Associated Diagnoses Orde r Schedule HEMOGLOBIN A1C Lab Routine 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) (HCC) Expected: 09/27/2024 (Approximate), Expires: 10/28/2025 BNP, NT-PRO Lab Routine Shortness of breath Expected: 09/27/2024 (Approximate), Expires: 09/27/2025 BASIC METABOLIC PANEL Lab Routine Type 2 diabetes mellitus with hemoglobin A1c goal of less than 8.0% (HCC) Expected: 09/27/2024 (Approximate), Expires: 09/27/2025 FERRITIN Lab Routine Anemia, unspecified type Expected: 09/27/2024 (Approximate), Expires: 09/27/2025 IRON SCREEN, INCLUDING TIBC Lab Routine Anemia, unspecified type Expected: 09/27/2024 (Approximate), Expires: 09/27/2025 CBC Lab Routine Anemia, unspecified type Expected: 09/27/2024 (Approximate), Expires: 09/27/2025 Health Maintenance Due Date Last Done Comments [...] as of this encounter Visit Diagnoses Diagnosis Type 2 diabetes mellitus with hemoglobin A1c goal of less than 8.0% (HCC)- Primary 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) (HCC) HTN, goal below 140/90 Unspecified essential hypertension COPD, group B, by GOLD 2017 classification (HCC) Shortness of breath Anemia, unspecified type Primary osteoarthritis of both shoulders documented in this encounter Advance Directives * [...] Agents on File Name Relationship Healthcare Agent [facility] p Communication Latia Trejo Spouse Health Care Agent Care Teams Choral Director Relationship Specialty Start Date End Date Suman Simpson MD [address] [place] [address] PCP - General 01/26/03 documented as of this encounter
--- OUTSIDE RECORDS SUMMARY | 2024-11-05 21:44 | External Medical Summary ---
Author Name Unknown Address Unknown Organization [id number]:LABORATORY [facility] - [facility] [address] [place] [address] Laboratory Report Ordering Provider Test Date Status BRITANY PADILLA 09/27/2024 16:24:00 Final Observation Date Value Abnormality Reference (Units ) Status WBC, Total 09/27/2024 16:24:00 5.33 4.00-10.80 (K/uL) Final RBC 09/27/2024 16:24:00 3.79 4.50-5.25 (M/uL) Final Hemoglobin 09/27/2024 16:24:00 10.7 Below low normal 14.0-16.8 (g/dL) Final HCT 09/27/2024 16:24:00 36.1 Below low normal 40.0-48.4 (%) Final MCV 09/27/2024 16:24:00 95.3 82.0-99.5 (fL) Final MCH 09/27/2024 16:24:00 28.2 27.0-34.0 (pg) Final MCHC 09/27/2024 16:24:00 29.6 32.0-36.0 (g/dL) Final RDW 09/27/2024 16:24:00 18.7 11.5-15.5 (%) Final Platelets 09/27/2024 16:24:00 91 Below low normal 140-400 (K/uL) Final MPV 09/27/2024 16:24:00 13.1 6.6-11.1 (fL) Final Nucleated erythrocytes/100 leukocytes [Ratio] in Blood by Automated count 09/27/2024 16:24:00 0 <=0 (/100 WBCs) Final Performing Location LABORATORY [facility] - [address] [place] [address]
--- OUTSIDE RECORDS SUMMARY | 2024-11-05 21:44 | External Medical Summary ---
Author Name Unknown Address Unknown Organization [id number]:LABORATORY [facility] - [address] [place] [address] Laboratory Report Ordering Provider Test Date Status BRITANY PADILLA 09/27/2024 16:24:00 Final Observation Date Value Abnormality Reference (Units ) Status Iron 09/27/2024 16:24:00 39 Below low normal 45-176 (ug/dL) Final Iron-binding capacity 09/27/2024 16:24:00 214 Below low normal 250-425 (ug/dL) Final Transferrin Sat % 09/27/2024 16:24:00 18 15-55 (%) Final Performing Location LAB[facility]ATORY [facility] - [address] [place] [address]
--- OUTSIDE RECORDS SUMMARY | 2024-11-05 21:44 | External Medical Summary ---
Author Name Unknown Address Unknown Organization [id number]:LABORATORY [facility] - [facility] [address] [facility] [address] Laboratory Report Ordering Provider Test Date Status BRITANY PADILLA 09/27/2024 16:24:00 Final Observation Date Value Abnormality Reference (Units ) Status HbA1C 09/27/2024 16:24:00 7.9 Above high normal 4. 0-5.6 (%) Final The use of HbA1c to monitor glycemic status is based on normal hemoglobin and HbA composition. This test should not be used in patients with abnormal hemoglobin that affects the half life of the red blood cell or the in vivo glycation rates. Glucose, estimated average 09/27/2024 16:24:00 180 Above high normal <126 (mg/dL) Agapito worrell Performing Location LABORATORY [facility] - [address] [facility] [address]
--- OUTSIDE RECORDS SUMMARY | 2024-11-05 21:44 | External Medical Summary | Summary of Care ---
Author Name Unknown Organization [facility] Address [address] [place] [address] Phone [phone] Care Team Providers Care Deputy Commissioner Name Role Phone Suman Simpson MD Primary Care Provider +1- [phone] Reason for Visit * Reason Comments IV Therapy Venofer Encounter Details Date Type Department Care Team (Latest Contact Info) Description 09/16/2024 11:00 AM EDT Hem/Onc Treatment Hematology/Oncology Treatment, [address] [address] Ann-Marie, Chair 2 Hem Onc [facility] [address] [place], [place] [id number] 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)*; End stage renal disease (HCC) Allergies Active Allergy Reactions Criticality Noted Date Comments Metolazone 07/29/2021 Severe HYponatremia Morphine Sulfate Other (Please comment) 006 hallucinate Oxycodone Other (Please comment) 07/07/2006 Hallucinate Penicillins 07/21/2011 Hallucinate documented as of this encounter (statuses as of 09/16/2024) Medications Medication Sig Dispensed Refills Start Date [...] A1c goal of less than 8.0% ([facility]) Use up to 4 times a day E11.9 100 Strip 11 4 Active Pantoprazole Sodium 40 MG Oral [...] dissolve on tongue. 20 Tablet 4 Active Benzonatate 100 MG Oral CapsuleIndications: COPD, group B, by GOLD 2017 classification ([facility]) Take 1 Capsule by mouth 3 times a day as needed for Cough. 30 Capsule 1 4 Active Vitamin D3 25 MCG (1000 UT) Oral Tablet (Vitamin D3) Take 1 Tablet by mouth in the morning. 30 Tablet 5 4 Active Breo Ellipta 100-25 MCG/ACT Inhalation Aerosol Powder Breath ActivatedIndication s:COPD, group B, by GOLD 2017 classification ([facility]) Inhale 1 Puff by mouth in the morning. 180 Each 3 4 Active Metoprolol Succinate ER 100 MG Oral Tablet Extended Release 24 Hour (toPROL XL)Indications:HTN, goal below 140/90 TAKE ONE TABLET BY MOUTH EVERY MORNING AND AT BEDTIME 180 Tablet 1 4 Active glipiZIDE 5 MG Oral Tablet (Glucotrol)Indicati ons:Type 2 diabetes mellitus with hemoglobin A1c goal of less than 8.0% ([facility]) Take 1 Tablet by mouth in the [...] group B, by GOLD 2017 classification ([facility]),Dyspnea and respiratory abnormalities 2.5 mg NEBULIZER PRN 08/29/2024 08/29/2025 Active Albuterol Sulfate (Proventil) (2.5 MG/3ML) 0.083% inhalation solution 2.5 mgIndications:COPD, group B, by GOLD 2017 classification (HCC),Dyspnea and respiratory abnormalities 2.5 mg NEBULIZER PRN 08/29/2024 08/29/2025 Active documented as of this encounter (statuses as of 09/16/2024) Active Problems Problem Noted Date Diagnosed Date [...] Anemia Additional Comments Currently getting HD on --Sat Hyponatremia 08/08/2021 Type 2 diabetes mellitus wit [...] as of this encounter (statuses as of 09/16/2024) Resolved Problems Problem Noted Date Diagnosed Date Resolved Date Hypertensive chronic kidney disease with stage 5 chronic kidney disease or end stage renal disease 01/27/2023 08/24/2023 Atherosclerosis of [place] 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 09/13/2021 [...] as of this encounter (statuses as of 09/16/2024) Immunizations Name Administration Dates Next Due COVID-19 mRNA, LNP-s, No Pre serve, 2-Dose Series ([employer]) 10/20/2021,02/28/2021,02/07/2021 COVID-19, MRNA-LNP, 23-24, P F, 30 MCG/0.3 mL, 12 YRS AND ABOVE, IM ([facility]) 10/13/2023 Covid-19, Mrna, Lnp-s, Pf, B ivalent, 30 Mcg, IM, 12 yrs and above (Pf[employer]) 09/12/2022 HEPATITIS B VACCINE, RECOMB, 20 MCG/ML, ADULT (HEPLISAV-B) 09/19/2023 Pneumococcal Conjugate Vacc, 13 Valent (Prevnar) 08/02/2015 Pneumococcal Polysaccharide PPV23 (Pneumovax) 08/31/2012,10/25/2002 Seasonal Influenza Vac., MDV , IM, 0.5 [...] t, Adjuvanted, 65+ YRS, PF, (Fluad) 12/01/2019 TD - Tetanus/Diptheria (ADULT) 10/25/2002,1988 TD, Preservative Free 01/13/2023 TDAP (age 10 [...] Sign Reading Time Taken Comments Blood Pressure 159/87 09/16/2024 11:05 AM EDT Pulse 64 09/16/2024 11:05 AM EDT Temperature 35.9 C (96.6 F) 09/16/2024 11:05 AM E DT Respiratory Rate 16 09/16/2024 11:05 AM EDT Oxygen Saturation 98% 09/16/2024 11:05 AM EDT Inhaled Oxygen Concentration - - Weight 96.2 kg (212 lb) 09/16/2024 11:05 AM EDT Height - - Body Mass Index 35.83 09/15/2024 1:07 PM EDT documented in this encounter Functional [...] No 02/09/2019 documented as of this encounter Nursing Notes * Ayla Cobb RN - 09/16/2024 2:19 PM EDT Pt tolerated treatment well, PIV removed tip intact, gauze pressure dressing applied. Goals: Patient will remain free from injury. Possible barriers to meeting goals: ambulation with IV pole. Stability of the patient: Moderately stable - low risk of patient condition declining or worsening Summary regarding today's goals: Met: Patient remained free from injury. Pt tolerated treatment well. Discharged in stable condition. No future Venofer tx appts needed at this time per supportive plan. * Ayla Cobb RN - 09/16/2024 11:38 AM EDT Chair 7 Pt present for Venofer 3/3 infusion, no concerns, tolerated previous Venofer infusions well. R arm only for PIV; established w/o difficulty, fluids infusing. Pt uses WC for mobility; needs assistance but can stand/pivot independently. Family member, Marylou needs to be called at [phone] once infusion complete, [facility]. Safety and Risk for Injury Patient will [...] potential dickey while using the heat function. documented in this encounter Plan of Treatment Upcoming Encounters Date Type Department Care Team (Late st Contact Info) Description 09/27/2024 3:20 PM EDT Anticoagulation Pharmacy, [place] [address] [facility], [place] [address] [place] [address] [facility] [address] 09/27/2024 4:00 PM EDT Office Visit [facility] [place] [address] [facility] [id number] Suman Simpson MD [address] [facility] [address] 10/11/2024 3:00 PM EST Office Visit Pulmonary Medicine, [facility] [address] [facility] [place] [address] Bradley Yepez MD [address] [facility] [address] 12/02/2024 2:30 PM EST Office Visit Interventional Pain Center, [facility] [address] [facility] [place] [address] Isis Mcrae PA-C [address] [facility] [place] [address] 03/13/2025 3:00 PM EDT Office Visit Nephrology, [facility] [address] [place], [place] [address] David Jaramillo MD [address] [place] [address] Health Maintenance Due Date Last Done Comments [...] as of this encounter Visit Diagnoses Diagnosis 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)- Primary End stage renal disease (HCC) End stage renal disease documented in this encounter Administered Medications Active Administered Medications - up to 3 most recent administrations Medication Order MAR Action Action Date Dose Rate Site diphenhydrAMINE (Benadryl) inj 50 mg 50 mg, IV Push, ONCE PRN Other, Hypersensitivity Reaction, Starting on Thu09/16/24 at 1122, Until 09/17/24 at 1121, For 24 hours EPINEPHrine 1 MG/ML inj 0.3 mg 0.3 mg, Intramuscular, ONCE PRN Other, Hypersensitivity Reaction or Anaphylaxis, Starting on Thu09/16/24 at 1122, Until 09/17/24 at 1121, For 24 hours hEParin 100 UNIT/ML Lock Flush inj 500 Units 500 Units (5 mL), IV Lock, PRN Other, IV Flush, Starting on Thu09/16/24 at 1122, Until 09/17/24 at 1121, For 24 hours, Do not flush if lock, PICC, or central line not in place; IV infusing or unable to flush. Hydrocortisone Sod Suc (PF) (Solu-Cortef) inj 100 mg 100 mg, IV Push, ONCE PRN Other, Hypersensitivity Reaction, Starting on Thu09/16/24 at 1122, Until 09/17/24 at 1121, For 24 hours NSS infusion 500 mL, Intravenous, at 50 mL/hr, CONTINUOUS, Starting on Thu09/16/24 at 1230, Until Thu09/16/24 at 2229 Start Infusion 09/16/2024 11:28 AM EDT 500 mL 50 mL/hr oxygen GAS Inhalation, OXYGEN, First dose on Thu09/16/24 at 1600, Until Discontinued, Device/Managed by: Low Flow Device, Goal SPO2 (%): 91-95, Starting Device: Nasal Cannula, Initial Flow Rate (LPM): 2, Lowest Support: Nasal Cannula: Flow 0-6 LPM. Titrate up/down by 1 LPM., Higher Support: Non-Rebreather (NRB) Mask: Minimum of 10 LPM. Titrate to maintain bag inflation., Titration Interval: Q2 minutes and as needed., Notify Provider: For sudden DECREASE in resting SPO2 to less than 85% and when escalating delivery device., Wean patient off Oxygen when the oxygen saturation is greater than or equal to 93% sodium chloride 0.9 % flush central line 10 mL 10 mL, IV Push, PRN Other, IV Flush, Starting on Thu09/16/24 at 1122, Until 09/17/24 at 1121, For 24 hours, Do not flush if lock, PICC, or central line not in place; IV infusing or unable to flush. Inactive Administered Medications - up to 3 most recent administrations Medication Order MAR Action Action Date Dose Rate Site Iron Sucrose (Venofer) 300 mg in NSS 250 mL ivpb 300 mg, IV Piggyback, ONCE, 1 dose, On Thu09/16/24 at 1300, Administer over 90 Minutes Start Infusion 09/16/2024 11:30 AM EDT 300 mg 180 mL/hr documented in this encounter Advance Directives [...] Agents on File Name Relationship Healthcare Agent [facility] Communication Latia Trejo Spouse Health Care Agent Care Teams Deputy Commissioner Relationship Specialty Start Date End Date Suman Simpson MD [address] [place], [place] [phone] PCP - General 01/26/03 documented as of this encounter
--- OUTSIDE RECORDS SUMMARY | 2024-11-05 21:44 | External Medical Summary | Summary of Care ---
Author Name Unknown Organization [facility] Address [address] [place] [address] Phone [phone] Care Team Providers Care Accounts Payable Processor Name Role Phone Suman Simpson MD Primary Care Provider +1- [phone] Reason for Visit * Reason Comments Dosage Adjustment In Person (Anticoag Cl inic) Encounter Details Date Type Department Care Team (Latest Contact Info) Description 09/27/2024 3:20 PM EDT Anticoagulation Pharmacy, [place] [address] [place] [address] [facility] [address] [place] [address] Anticoagulation management encounter*; Atrial fibrillation, unspecified type [...] COPD, group B, by GOLD 2017 classification ([facility] [...] s:COPD, group B, by GOLD 2017 classification ([facility] [...] stage renal disease 01/27/2023 08/24/2023 Atherosclerosis of [place] 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 09/13/2021 [...] mRNA, LNP-s, No Pre serve, 2-Dose Series ([employer]) 10/20/2021,02/28/2021,02/07/2021 COVID-19, MRNA-LNP, 23-24, P F, 30 MCG/0.3 mL, 12 YRS AND ABOVE, IM ([facility]) 10/13/2023 Covid-19, Mrna, Lnp-s, Pf, B [...] as of this encounter Progress Notes * Helen Boyer, [facility] - 09/27/2024 3:18 PM EDT Images from the original note were not included. Medication Therapy Disease Management - Anticoagulation Patient: Tre Trejo | : 1940 Subjective Patient-Reported Symptoms: Patient Findings Negatives: Signs/symptoms of thrombosis, Signs/symptoms of bleeding, Change in health, Change in alcohol use, Change in activity, Upcoming invasive procedure, Missed doses, Extra doses, Change in medications, Change in diet/appetite, Bruising Objective Current Warfarin Dose As of 09/27/2024 Warfarin maintenance plan: 5 mg (2.5 mg x 2) every Sun, Tue, Fri; 2.5 mg (2.5 mg x 1) all other days INR Result As of 09/27/2024 INR goal: 2.0-3.0 INR used for dosin.8 (09/27/2024) Assessment & Plan Warfarin Plan As of 09/27/2024 Full warfarin instructions: 09/28: Hold; Otherwise 5 mg every Sun, Tue, Fri; 2.5 mg all other days Next INR check: 10/20/2024 Repeat PT/INR in 3 week(s) Weekly dose: not changed Additional Dosing Information: Description Takes in AM Pt prefers OFS vs GML (venipuncture) I spent a total of 10-19 minutes (exact time 10 mins) on the date of service in preparation, delivery, and documentation of the care provided to Tre Trejo excluding any time spent in the performance of separately billed services or time spent by another provider/QHP. Helen Boyer [facility] Clinical Pharmacist 09/27/2024, 3:18 PM documented in this encounter Plan of Treatment Upcoming Encounters Date Type Department Care Team (Latest Contact Info) Description 09/27/2024 4:00 PM EDT Office Visit [facility] [address] [place] [address] Suman Simpson MD [address] [facility] [place] [id number] 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) (HCC)* 10/11/2024 3:00 PM EST Office Visit Pulmonary Medicine, [facility] [address] Bradley Yepez MD [address] [place] [address] 10/20/2024 3:20 PM EST Anticoagulation Pharmacy, [place] [address] [place] [address] [facility] [address] [place] [address] 12/02/2024 2:30 PM EST Office Visit [facility] Center, [facility] [place] [address] Isis Mcrae PA-C [address] [facility] [address] 03/13/2025 3:00 PM EDT Office Visit Nephrology, [facility] [address] [place] [address] David Jaramillo MD [address] [facility] [place] [address] Health Maintenance Due Date Last Done Comments [...] Comments INR FINGERSTICK, POINT OF CARE STAT 09/27/2024 3:23 PM EDT Atrial fibrillation, unspecified type (HCC) Anticoagulation management encounter documented in this encounter Results * INR FINGERSTICK, POINT OF CARE (09/27/2024 3:23 PM EDT) Fingerstick INR 3.8 INR 3:27 PM EDT [facility] 56-01 Blood 09/27/2024 3:23 PM EDT 09/27/2024 3:27 PM EDT Narrative [facility] 56-01 - 09/27/2024 3:27 PM EDT Therapeutic ranges for non-operative patients: Prophylaxsis/treatment of DVT: (Range:2.0-3.0) Treatment of pulmonary embolism:(Range:2.0-3.0) Prevention of systemic embolism from: -tissue heart valves -acute myocardial infarction -valvular heart disease -atrial fibrillation (Range: 2.0-3.0) Mechanical prosthetic valves: (Range: 2.5-3.5) Helen Boyer [facility] LAB POINT OF CARE TEST DOCKED DEVICE UNSOLICITED RESULTS [facility] 56-01 [address] [place] [address] documented in this encounter Visit Diagnoses Diagnosis 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) (HCC)- Primary Anticoagulation management encounter- Primary Encounter for therapeutic [...] Agents on File Name Relationship Healthcare Agent [facility] Communication Latia Trejo Spouse Health Care Agent Care Teams Accounts Payable Processor Relationship Specialty Start Date End Date Suman Simpson MD [address] [place] [id number] PCP - General 01/26/03 documented as of this encounter
--- OUTSIDE RECORDS SUMMARY | 2024-11-05 21:44 | External Medical Summary | Summary of Care ---
Author Name Unknown Organization [facility] Address [address] [place] [address] Phone [phone] Care Team Providers Care Melter Assistant Name Role Phone Suman Simpson MD Primary Care Provider +1- [phone] Reason for Visit * Reason Comments IV Therapy Venofer Encounter Details Date Type Department Care Team (Latest Contact Info) Description 09/16/2024 11:00 AM EDT Hem/Onc Treatment Hematology/Oncology Treatment, [address] [address] Ann-Marie, Chair 2 Hem On[address] [address] 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)*; End stage renal disease (HCC) Allergies Active Allergy Reactions Criticality Noted Date Comments Metolazone 07/29/2021 Severe HYponatremia Morphine Sulfate Other (Please comment) 006 hallucinate Oxycodone Other (Please comment) 07/07/2006 Hallucinate Penicillins 07/21/2011 Hallucinate documented as of this encounter (statuses as of 10/11/2024) Medications VITAMIN C 500 MG PO TABS [...] on tongue. 20 Tablet 08/10/20 24 Active Benzonatate 100 MG Oral CapsuleIndication s:COPD, group [...] ons:COPD, group B, by GOLD 2017 classification ([employer] [...] as of this encounter (statuses as of 10/11/2024) Active Problems Problem Noted Date Diagnosed Date [...] Assessment & Plan (01/09/2022 2:18 PM EST): [facility] Triage Call: Reviewed case w/ Dr [...] as of this encounter (statuses as of 10/11/2024) Resolved Problems Problem Noted Date Diagnosed Date Resolved Date Hypertensive chronic kidney disease with stage 5 chronic kidney disease or end stage renal disease 01/27/2023 08/24/2023 Atherosclerosis of [place] 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 09/13/2021 [...] as of this encounter (statuses as of 10/11/2024) Immunizations Name Administration Dates Next Due COVID-19 mRNA, LNP-s, No Pre serve, 2-Dose Series ([employer]) 10/20/2021,02/28/2021,02/07/2021 COVID-19, MRNA-LNP, PF, 30 M CG/0.3 mL, 12 YRS AND ABOVE, IM ([facility]) 10/13/2023 Covid-19, Mrna, Lnp-s, Pf, B ivalent, 30 Mcg, IM, 12 yrs and above ([employer]) 09/12/2022 HEPATITIS B VACCINE, RECOMB, 20 MCG/ML, [...] EDT documented in this encounter Functional Status * [...] Author No 02/09/2019 3:39 PM EDT Sree iBshop RN documented as of this encounter Mental Status * Because of a physical, mental, or emotional condition, do you have serious difficulty concentrating, remembering, or making decisions? (5 years old or older) Answer Entry Date Author No 02/09/2019 3:39 PM EDT Sree Bishop RN documented in this encounter Nursing Notes * Ayla Cobb [...] member, Marylou needs to be called at [phone] once infusion complete, will come to [facility] post tx. Safety and Risk for Injury [...] Description 10/20/2024 11:20 AM EST Anticoagulation Pharmacy, [place] [address] [place] [address] [facility] [address] [place] [address] 10/24/2024 3:00 PM EST Office Visit Pulmonary Medicine, [facility] [address] [facility] [place] [address] Bradley Yepez MD [address] [place] [address] 12/02/2024 2:30 PM EST Office Visit Interventional Pain Center, [facility] [address] [place] [address] Isis Mcrae PA-C [address] [place] [address] 03/13/2025 3:00 PM EDT Office Visit Nephrology, [facility] [address] [place] [address] David Jaramillo MD [address] [facility] [address] [place] [address] 04/04/2025 2:40 PM EDT Office Visit [facility] [address] [place] [address] Suman Simpson MD [address] [place] [address] Health Maintenance Due Date Last Done Comments [...] On Thu09/16/24 at 1300, Administer over 90 MinutesIndications: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),End stage renal disease (HCC) Start Infusion 09/16/2024 11:30 AM EDT 300 mg 180 mL/hr NSS infusion 500 mL, Intravenous, at 50 mL/hr, CONTINUOUS, Starting on Thu09/16/24 at 1230, Until Thu09/16/24 at 1820Indications: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),End stage renal disease (HCC) Start Infusion 09/16/2024 11:28 AM EDT 500 mL 50 mL/hr documented [...] Trejo Spouse Health Care Agent Care Teams Melter Assistant Relationship Specialty Start Date End Date Suman Simpson MD [address] [place] [address] PCP - General 01/26/03 documented as of this encounter
--- OUTSIDE RECORDS SUMMARY | 2024-11-05 21:44 | External Medical Summary | Summary of Care ---
Author Name Unknown Organization [facility] Address [address] [place] [address] Phone [phone] Care Team Providers Care Loaf Counter Name Role Phone Suman Simpson MD Primary Care Provider +1- [phone] Reason for Visit * Reason Comments Follow Up Bilateral shoulder Pain Encounter Details Date Type Department Care Team (Late st Contact Info) Description 07/08/2024 2:00 PM EDT Office Visit Orthopaedics [facility] [address] [employer] [address] [place] [address] Joesph Valero MD [address] [place] [address] Glenohumeral arthritis, right*; Glenohumeral arthritis, left Allergies Active Allergy Reactions Criticality Noted Date Comments Metolazone 07/29/2021 Severe HYponatremia Morphine Sulfate Other (Please comment) 006 hallucinate Oxycodone Other (Please comment) 07/07/2006 Hallucinate Penicillins 07/21/2011 Hallucinate documented as of this encounter (statuses as of 10/10/2024) Medications VITAMIN C 500 MG PO TABS [...] 2 tablet in PM. 360 Tablet 3 Active Warfarin Sodium 2.5 MG Oral Tablet (Jantoven) TAKE 1-2 TABLETS BY MOUTH DAILY. According to anticoagulation clinic 180 Tablet 3 Active Multiple Vitamins Oral Tablet Take 1 Tablet by mouth in the morning. Active Silver sulfADIAZINE 1 % External Cream (Silvadene)Indic ations:Venous stasis dermatitis Apply topically to affected area daily. 85 g 1 Active Additional Information Patient not taking.Reported on 08/10/2024 glipiZIDE 5 MG Oral Tablet (Glucotrol)Indic ations:Type [...] BEDTIME 180 Tablet 3 024 2023 Discontinued Breo Ellipta 100-25 MCG/ACT Inhalation Aerosol Powder Breath ActivatedIndicat ions:COPD, group B, by GOLD 2017 classification ([facility]) Inhale 1 Puff by mouth in the morning. 180 Each 3 024 2023 Discontinued( Refill) Gabapentin 100 MG Oral Capsule (Neurontin) Take 1 capsule by mouth twice per day. 180 Capsule 1 024 2023 Discontinued Cephalexin 500 MG Oral CapsuleIndicatio ns:Diabetic ulcer of toe of right foot associated with type 2 diabetes mellitus, unspecified ulcer stage ([facility]) Take 1 Capsule by mouth in the morning and 1 Capsule before bedtime. Do all this for 10 days. 20 Capsule 024 2023 Discontinued( Medication List Clean Up) Hospital, Clinic, or Other Facility Administered Medication Ordered Dose Route Frequency Start Date End Date Status sodium hyaluronate (Gelsyn-3) 16.8 MG/2ML inj 16.8 mgIndications:Glenohumeral arthritis, right 16.8 mg IX ONCE 07/08/2024 07/08/2024 Ended sodium hyaluronate (Gelsyn-3) 16.8 MG/2ML inj 16.8 mgIndications:Glenohumeral arthritis, left 16.8 mg IX ONCE 07/08/2024 07/08/2024 Ended documented as of this encounter (statuses as of 10/10/2024) Active Problems Problem Noted Date Diagnosed Date [...] Assessment & Plan (01/09/2022 2:18 PM EST): [facility] Triage Call: Reviewed case w/ Dr [...] as of this encounter (statuses as of 10/10/2024) Resolved Problems Problem Noted Date Diagnosed Date Resolved Date Hypertensive chronic kidney disease with stage 5 chronic kidney disease or end stage renal disease 01/27/2023 08/24/2023 Atherosclerosis of 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 09/13/2021 [...] as of this encounter (statuses as of 10/10/2024) Immunizations Name Administration Dates Next Due COVID-19 mRNA, LNP-s, No Pre serve, 2-Dose Series ([employer]) 10/20/2021,02/28/2021,02/07/2021 COVID-19, MRNA-LNP, PF, 30 M CG/0.3 mL, 12 YRS AND ABOVE, IM ([employer]-ComirnatHipWay) 10/13/2023 Covid-19, Mrna, Lnp-s, Pf, B ivalent, 30 Mcg, IM, 12 yrs and above ([employer]) 09/12/2022 HEPATITIS B VACCINE, RECOMB, 20 MCG/ML, [...] 02/09/2019 3:39 PM Sree Cunningham RN * Are you blind or do [...] documented in this encounter Progress Notes * Joesph Valero MD - 07/08/2024 2:00 PM EDT Here for procedure only visit. Presents for bilateral viscosupplementation of the glenohumeral joint. PROCEDURE NOTE: SHOULDER GLENOHUMERAL JOINT INJECTION (Gelsyn #2 BL) Laterality: Bilateral Time out: Prior to injection, a time out was called to confirm the administration of appropriate medicine, patient name, procedure and confirm to the best of our ability and knowledge the presence of any necessary risks and benefits. Patient verbalized understanding. Ultrasound required due to patient size (obese) and location of joint being too deep to accurately inject without ultrasound guidance Ultrasound utilized to guide injection. During the procedure, the needle was visualized in plane and was advanced with continuous ultrasound guidance to the appropriate anatomical landmark as described in the procedure. Sterile technique applied using gloves, chlorhexadine, and alcohol swabs. Ethyl chloride spray for local anesthetic. Glenohumeral joint injected using 2.5 inch, 22 gauge needle. Injected with Gelsyn. Patient tolerated procedure with no significant bleeding or adverse reaction. Patient instructed to call or return to clinic for fever, warmth, unusual redness at injection sitefor potential infection. Patient also advised regarding post-procedural pain. Joesph Valero MD Sports Medicine Primary Care Orthopaedics [address] [address] documented in this encounter Nursing Notes * Yumiko Steinberg LPN - 07/08/2024 1:52 PM EDT F/u Bilateral shoulder SECOND of a series Gelsyn injections Pt c/o 8/10 pain today in L shoulder and 5/10 pain in R shoulder Pt accompanied by his daughter today Mima Bullard PAOLO documented in this encounter Miscellaneous Notes * Addendum Note - Joesph Valero MD - 10/10/2024 1:49 PM EST Addended by: JOESPH VALERO on: 10/10/2024 01:49 PM Modules accepted: Orders documented in this encounter Plan of Treatment Upcoming Encounters Date Type Department Care Team (Late st Contact Info) Description 10/10/2024 1:50 PM EST Imaging Radiology [address] [address] Arrived 10/20/2024 11:20 AM EST [facility]ticoagulation Pharmacy[address] [address] [facility] [address] [facility] [address] 10/24/2024 3:00 PM EST Office Visit Pulmonary Medicine, [facility] [address] [facility] [place] [address] Bradley Yepez MD [address] [place] [address] 12/02/2024 2:30 PM EST Office Visit Interventional Pain Center, [facility] [address] [facility] [place] [address] Isis Mcrae PA-C [address] [facility] [place] [address] 03/13/2025 3:00 PM EDT Office Visit Nephrology, [facility] [address] [facility] [place] [address] David Jaramillo MD [address] [facility] [place] [address] 04/04/2025 2:40 PM EDT Office Visit Family [facility] [address] [place] [address] Suman Simpson MD [address] [facility] [address] Scheduled Orders Name Type Priority Associated Diagnoses Orde r Schedule POINT OF CARE US MAJOR JOINT INJECTION, ORTHO Medical Imaging Routine Glenohumeral arthritis, right Glenohumeral arthritis, left Ordered: 10/10/2024 Health Maintenance Due Date Last Done Comments [...] Esophageal reflux Atrial fibrillation, unspecified type (HCC) Glenohumeral arthritis, right- Primary Glenohumeral arthritis, left documented in this encounter Administered Medications Inactive Administered Medications - up to 3 most recent administrations Medication Order MAR Action Action Date Dose Rate Site sodium hyaluronate (Gelsyn-3) 16.8 MG/2ML inj 16.8 mg 16.8 mg, Intra-Articular, ONCE, On Thu07/08/24 at 1445, For 1 doseIndications:Glenohumer al arthritis, right Given 07/08/2024 2:01 PM EDT 16.8 mg Shoulder Right sodium hyaluronate (Gelsyn-3) 16.8 MG/2ML inj 16.8 mg 16.8 mg, Intra-Articular, ONCE, On Thu07/08/24 at 1445, For 1 doseIndications:Glenohumer al arthritis, left Given 07/08/2024 2:01 PM EDT 16.8 mg Shoulder Left documented in this encounter Advance Directives * [...] Relationship Healthcare Agent [facility] Communication Latia Robles Ficlesliederrick Spouse Health Care Agent Care Teams Loaf Counter Relationship Specialty Start Date End Date Suman Simpson MD [address] [place] [address] PCP - General 01/26/03 documented as of this encounter
--- OUTSIDE RECORDS SUMMARY | 2024-11-05 21:44 | External Medical Summary ---
Author Name Unknown Address Unknown Organization K01:[facility] [address] [place] [address] Laboratory Report Ordering Provider Test Date Status BRITANY PADILLA 09/27/2024 16:24:00 Final Exclude Heart Failure: <300 pg/mL
Diagnose Heart Failure:
Age <50 yr: >450 pg/mL
50-75 yr: >900 pg/mL
>75 yr: >1800 pg/mL
GFR is 30-59 mL/min: >1200 pg/mL or Age- adjusted values
GFR <30 mL/min: do not use, not reliable

Prognostic threshold: 1000 pg/mL Observation Date Value Abnormality Reference (Units ) Status BNP, Pro-hormone 09/27/2024 16:24:00 7308 Above high no rmal <300 (pg/mL) Final Performing Location [facility] [address] [place] [address]
--- OUTSIDE RECORDS SUMMARY | 2024-11-05 21:45 | External Medical Summary | Summary of Care ---
Author Name Unknown Organization [facility] Address [address] [place] [address] Phone [phone] Care Team Providers Care Personnel Clerk Name Role Phone Randy Garg MD Primary Care Provider +1- [phone] Reason for Visit * Reason Comments eRx-Medication Refill Encounter Details Date Type Department Care Team (Late st Contact Info) Description 09/14/2024 Refill [facility] [address] [place] [address] Randy Garg MD [address] [place] [address] Allergies Active Allergy Reactions Criticality Noted Date Comments Metolazone 07/29/2021 Severe HYponatremia Morphine Sulfate Other (Please comment) 006 hallucinate Oxycodone Other (Please comment) 07/07/2006 Hallucinate Penicillins 07/21/2011 Hallucinate documented as of this encounter (statuses as of 09/14/2024) Medications Medication Sig Dispensed Refills Start Date End Date Status VITAMIN C 500 MG PO TABS one tablet by mouth daily Active MULTIVITAL PO TABS one tablet by mouth daily Active Probiotic Daily Oral Capsule Take 1 Capsule by mouth in the morning. Active Vitamin-B Complex Oral Tablet Take 1 Tablet by mouth in the morning. Active Allopurinol 100 MG Oral Tablet (Zyloprim)Indicati ons:Gout, unspecified cause, unspecified chronicity, unspecified site Take 1/2 tab by mouth daily 45 Tablet 3 03/07/20 24 Active Bisacodyl 5 MG Oral Tablet Delayed Release (Dulcolax)Indicati ons:Constipation, unspecified constipation type Take 1 Tablet by mouth daily as needed for Constipation. May take 1 or two tablets 30 Tablet 03/07/20 24 Active Isosorbide Dinitrate 20 MG Oral Tablet (Isordil)Indicatio ns:HTN, goal below 140/90 TAKE ONE TABLET BY MOUTH EVERY MORNING AND TAKE ONE TABLET BY MOUTH BEFORE BEDTIME 180 Tablet 03/07/20 24 Active Levothyroxine Sodium 88 MCG Oral Tablet (Levoxyl)Indicatio ns:Other specified hypothyroidism TAKE ONE TABLET BY MOUTH EVERY MORNING AT LEAST 30 MINUTES PRIOR TO BREAKFAST OR OTHER MEDICATIONS 90 Tablet 03/07/20 24 Active Losartan Potassium 25 MG Oral Tablet (Cozaar) Take 1 Tablet by mouth in the morning. 90 Tablet 03/07/20 24 Active OneTouch Verio In Vitro Strip (Glucose Blood)Indications: Type 2 diabetes mellitus with hemoglobin A1c goal of less than 8.0% ([facility]) Use up to 4 times a day E11.9 100 Strip 03/07/20 24 Active Pantoprazole Sodium 40 MG Oral Tablet Delayed Release (Protonix)Indicati ons:Gastroesophage al reflux disease without esophagitis TAKE ONE TABLET BY MOUTH EVERY DAY 30 MINUTES PRIOR TO EATING 90 Tablet 03/07/20 24 Active Polyethylene Glycol 3350 17 GM Oral Packet (Miralax)Indicatio ns:Constipation, unspecified constipation type Take 1 Packet by mouth in the morning. 14 Each 03/07/20 Active Additional Information Patient not taking.Reported on 08/10/2024 Sennosides-Docusat e Sodium 8.6-50 MG Oral Tablet (Senokot-S)Indicat ions:Constipation, unspecified constipation type Take 1 Tablet by mouth at bedtime as needed for Constipation. May increase to 2 as needed 30 Tablet 03/07/20 24 Active Tamsulosin HCl 0.4 MG Oral Capsule (Flomax)Indication s:BPH with obstruction/lower urinary tract symptoms Take 1 Capsule by mouth in the morning. 90 Capsule 03/07/20 24 Active Torsemide 100 MG Oral Tablet (Demadex)Indicatio ns:Hypertensive heart and kidney disease with chronic diastolic [...] Active Silver sulfADIAZINE 1 % External Cream (Silvadene)Indicat ions:Venous stasis dermatitis Apply topically to affected area daily. 85 g 1 06/21/20 24 Active Additional Information Patient not taking.Reported on 08/10/2024 Ondansetron 4 MG Oral Tablet Disintegrating (Zofran)Indication s:Nausea Place 1 Tablet on tongue every 8 hours as needed for Nausea. dissolve on tongue. 20 Tablet 08/10/20 24 Active Benzonatate 100 MG Oral CapsuleIndications :COPD, group B, by GOLD 2017 classification ([facility]) Take 1 Capsule by mouth 3 times a day as needed for Cough. 30 Capsule 1 08/23/20 24 Active Vitamin D3 25 MCG (1000 UT) Oral Tablet (Vitamin D3) Take 1 Tablet by mouth in the morning. 30 Tablet 5 08/24/20 24 Active Breo Ellipta 100-25 MCG/ACT Inhalation Aerosol Powder Breath ActivatedIndicatio ns:COPD, group B, by GOLD 2017 classification ([facility]) Inhale 1 Puff by mouth in the morning. 180 Each 3 08/29/20 24 Active Metoprolol Succinate ER 100 MG Oral Tablet Extended Release 24 Hour (toPROL XL)Indications:HTN , goal below 140/90 TAKE ONE TABLET BY MOUTH EVERY MORNING AND AT BEDTIME 180 Tablet 1 09/05/20 24 Active glipiZIDE 5 MG Oral Tablet (Glucotrol)Indicat ions:Type 2 diabetes mellitus with hemoglobin A1c goal of less than 8.0% ([facility]) Take 1 Tablet by mouth in the morning. 90 Tablet 1 09/05/20 24 Active Gabapentin 100 MG Oral Capsule (Neurontin) TAKE ONE CAPSULE BY MOUTH TWICE A DAY 180 Capsule 1 09/14/20 24 Active Gabapentin 100 MG Oral Capsule (Neurontin) Take 1 capsule by mouth twice per day. 180 Capsule 1 03/10/20 24 024 Discontinued Hospital, Clinic, or Other Facility Administered Medication Ordered Dose Route Frequency Start Date End Date Status Albuterol Sulfate (Proventil) (5 MG/ML) 0.5% *conc* inhalation solution 2.5 mgIndications:COPD, group B, by GOLD 2017 classification ([facility]),Dyspnea and respiratory abnormalities 2.5 mg NEBULIZER PRN 08/29/2024 08/29/2025 Active Albuterol Sulfate (Proventil) (2.5 MG/3ML) 0.083% inhalation solution 2.5 mgIndications:COPD, group B, by GOLD 2017 classification ([facility]),Dyspnea and respiratory abnormalities 2.5 mg NEBULIZER PRN 08/29/2024 08/29/2025 Active documented as of this encounter (statuses as of 09/14/2024) Active Problems Problem Noted Date Diagnosed Date [...] as of this encounter (statuses as of 09/14/2024) Resolved Problems Problem Noted Date Diagnosed Date Resolved Date Hypertensive chronic kidney disease with stage 5 chronic kidney disease or end stage renal disease 01/27/2023 08/24/2023 Atherosclerosis of 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 09/13/2021 [...] as of this encounter (statuses as of 09/14/2024) Immunizations Name Administration Dates Next Due COVID-19 mRNA, LNP-s, No Pre serve, 2-Dose Series ([employer]) 10/20/2021,02/28/2021,02/07/2021 COVID-19, MRNA-LNP, 23-24, P F, 30 MCG/0.3 mL, 12 YRS AND ABOVE, IM (PFIZER-Comirnaty) 10/13/2023 Covid-19, Mrna, Lnp-s, Pf, B ivalent, [...] encounter Miscellaneous Notes * Telephone Encounter - Randy Garg MD - 09/14/2024 5:31 PM EDTSigned Prescriptions: Disp Refills Gabapentin 100 MG Oral Capsule (Neurontin) 180 Ca*1 Sig: TAKE ONE CAPSULE BY MOUTH TWICE A DAYAuthorizing Provider: RANDY GARG * Telephone Encounter - Betty Miller LPN - 09/14/2024 3:23 PM EDTPending Prescriptions: Disp Refills Gabapentin 100 MG Oral Capsule [Pharmacy M*180 Ca*1 Sig: TAKE ONE CAPSULE BY MOUTH TWICE A DAY * Telephone Encounter - Mirella Rizvi - 09/14/2024 1:11 PM EDTPending Prescriptions: Disp Refills Gabapentin 100 MG Oral Capsule [Pharmacy M*180 Ca*1 Sig: TAKE ONE CAPSULE BY MOUTH TWICE A DAY documented in this encounter Plan of Treatment Upcoming Encounters Date Type Department Care Team (Late st Contact Info) Description 09/15/2024 1:00 PM EDT PulmDiagnostic Pulmonary Function Lab, [address] [place] [id number] [place], [address] [facility] [place] [address] 09/16/2024 11:00 AM EDT Hem/Onc Treatment Hematology/Oncology Treatment, [place] [address] [place] [phone] Ann-Marie, Chair 2 Hem Onc Scenery [address] [place] [address] 09/27/2024 3:20 PM EDT Anticoagulation Pharmacy, [place] [address] [facility], [place] [address] [facility] [address] [place] [facility] [address] 09/27/2024 4:00 PM EDT Office Visit Family Practice, [place] [address] [facility] [phone] Randy Garg MD [address] [place] [address] 10/11/2024 3:00 PM EST Office Visit Pulmonary Medicine, [facility] [address] [place] [address] Bradley [facility]pez MD [address] [facility] [address] 12/02/2024 2:30 PM EST Office Visit Interventional Pain Center, [facility] [address] [place] [address] Isis Mcrae PA-C [address] [place] [address] 03/13/2025 3:00 PM EDT Office Visit Nephrology, [facility] [address] [facility] [place] [address] David Jaramillo MD [address] [facility] [place] [address] Health Maintenance Due Date Last Done Comments Adult Wellness Visit 2007 COVID-19 Vaccine (2023- season) 2024 10/13/2023, 09/12/2022, 10/20/2021, Additional history [...] ASSESSMENT COMPLETED IN PAST YEAR FOR COPD 09/09/2025 09/09/2024 DTap/Tdap Vaccines (4 - Td or Tdap) 01/13/2033 01/13/2023, 01/13/2023, 01/04/2013, Additional history exists Pneumococcal Vaccine: 65+ Years Completed 08/02/2015, 08/31/2012, 10/25/2002 Alpha-1 Antitrypsin Completed 09/06/2018 RETIRED - COLONOSCOPY-EVERY 5 YRS AGES 18-100 Discontinued 09/04/2023, 01/08/2010 Hepatitis B Vaccine Discontinued 09/19/2023 Nephrology Referral Discontinued 07/26/2024, 01/24/2014, 07/16/2011, Additional history exists Influenza Vaccine (FLU shot) Completed 09/02/2024, 08/12/2023, 08/12/2023, Additional history exists HPV (Gardasil) Vaccine [...] Agents on File Name Relationship Healthcare Agent Relationstn p Communication Latia Trejo Spouse Health Care Agent Care Teams Personnel Clerk Relationship Specialty Start Date End Date Randy Garg MD [address] [place] [address] PCP - General 01/26/03 documented as of this encounter
--- OUTSIDE RECORDS SUMMARY | 2024-11-05 21:45 | External Medical Summary | Summary of Care ---
Author Name Unknown Organization [facility] Address [address] [place] [address] Phone [phone] Care Team Providers Care Arabic Translator Name Role Phone Suman Simpson MD Primary Care Provider +1- [phone] Encounter Details Date Type Department Care Team (Late st Contact Info) Description 09/13/2024 Population Health External Data Unspecified Department Allergies [...] 1 or two tablets 30 Tablet 11 4 Active Isosorbide Dinitrate 20 MG Oral Tablet (Isordil)Indication s:HTN, goal below 140/90 TAKE ONE TABLET BY MOUTH EVERY MORNING AND TAKE ONE TABLET BY MOUTH BEFORE BEDTIME 180 Tablet 3 4 Active Levothyroxine Sodium 88 MCG Oral Tablet (Levoxyl)Indication s:Other specified hypothyroidism TAKE ONE TABLET BY MOUTH EVERY MORNING AT LEAST 30 MINUTES PRIOR TO BREAKFAST OR OTHER MEDICATIONS 90 Tablet 3 4 Active Losartan Potassium 25 MG Oral Tablet (Cozaar) Take 1 Tablet by mouth in the morning. 90 Tablet 3 4 Active OneTouch Verio In Vitro Strip (Glucose Blood)Indications:T ype 2 diabetes mellitus with hemoglobin A1c goal of less than 8.0% ([facility]) Use up to 4 times a day [...] to 2 as needed 30 Tablet 11 4 Active Tamsulosin HCl 0.4 MG Oral Capsule (Flomax)Indications :BPH with obstruction/lower urinary tract symptoms Take 1 Capsule by mouth in the morning. 90 Capsule 3 4 Active Gabapentin 100 MG Oral Capsule (Neurontin) Take 1 capsule by mouth twice per day. 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 30 Capsule 1 4 Active Vitamin D3 25 MCG (1000 UT) Oral Tablet (Vitamin D3) Take 1 Tablet by mouth in the morning. 30 Tablet 5 4 Active Breo Ellipta 100-25 MCG/ACT Inhalation Aerosol Powder Breath ActivatedIndication s:COPD, group B, by GOLD 2017 classification ([facility]) Inhale 1 Puff by mouth in the morning. 180 Each 3 4 Active Metoprolol Succinate ER 100 MG Oral Tablet Extended Release 24 Hour (toPROL XL)Indications:HTN, goal below 140/90 TAKE ONE TABLET BY MOUTH EVERY MORNING AND AT BEDTIME 180 Tablet 1 4 Active glipiZIDE 5 MG Oral Tablet (Glucotrol)Indicati ons:Type 2 diabetes mellitus with hemoglobin A1c goal of less than 8.0% ([facility]) Take 1 Tablet by mouth in the morning. 90 Tablet 1 4 Active Hospital, Clinic, or Other Facility Administered Medication Ordered Dose Route Frequency Start Date End Date Status Albuterol Sulfate (Proventil) (5 MG/ML) 0.5% *conc* inhalation solution 2.5 mgIndications:COPD, group B, by GOLD 2017 classification ([facility]),Dyspnea and respiratory abnormalities 2.5 mg NEBULIZER PRN 08/29/2024 08/29/2025 Active Albuterol Sulfate (Proventil) (2.5 MG/3ML) 0.083% inhalation solution 2.5 mgIndications:COPD, group B, by GOLD 2017 classification ([facility]),Dyspnea and respiratory abnormalities 2.5 mg NEBULIZER PRN [...] stage renal disease 01/27/2023 08/24/2023 Atherosclerosis of [place] 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 09/13/2021 [...] Daytime somnolence 12/19/2013 7 High triglycerides 09/29/2011 Overview: DUPLICATE Type 2 diabetes mellitus wit [...] mRNA, LNP-s, No Pre serve, 2-Dose Series ([employer]) 10/20/2021,02/28/2021,02/07/2021 COVID-19, MRNA-LNP, 23-24, P F, 30 MCG/0.3 mL, 12 YRS AND ABOVE, IM ([employer]-Comirnat) 10/13/2023 Covid-19, Mrna, Lnp-s, Pf, B ivalent, [...] 1:00 PM EDT PulmDiagnostic Pulmonary Function Lab, [facility] [address] [place] [address] [place], [address] [place] [address] 09/16/2024 11:00 AM EDT Hem/Onc Treatment Hematology/Oncology Treatment, [place] [address] [place] [phone] Ann-Marie, Chair 2 Hem Onc Scenery [address] [place] [address] 09/27/2024 3:20 PM EDT Anticoagulation Pharmacy, [place] [address] [place] [facility] [address] [facility] [address] [place] [address] 09/27/2024 4:00 PM EDT Office Visit Family Practice, [place] [address] [facility], [place] [phone] Suman Simpson MD [address] [place] [address] 10/11/2024 3:00 PM EST Office Visit Pulmonary Medicine, [facility] [address] [facility] [place] [address] Bradley Yepez MD [address] [facility] [address] 12/02/2024 2:30 PM EST Office Visit Interventional Pain Center, [facility] [address] [facility] [place] [address] Isis Mcrae PA-C [address] [facility] [place] [address] 03/13/2025 3:00 PM EDT Office Visit Nephrology, [facility] [address] [place] [address] David Jaramillo MD [address] [place] [address] Health Maintenance Due Date Last Done Comments [...] Name Relationship Healthcare Agent [facility] p Communication Latia Trejo Spouse Health Care Agent Care Teams Arabic Translator Relationship Specialty Start Date End Date Suman Simpson MD [address] [place], [place] [id number] PCP - General 01/26/03 documented as of this encounter
--- OUTSIDE RECORDS SUMMARY | 2024-11-05 21:45 | External Medical Summary | Summary of Care ---
Author Name Unknown Organization [facility] Address [address] [place] [address] Phone [phone] Care Team Providers Care Casket Trimmer Name Role Phone Suman Simpson MD Primary Care Provider [phone]- [phone] Reason for Visit * Reason Comments Pulmonary Function Test PFT with broncho dilator Oxygen Assessment 6 minute walk Encounter Details Date Type Department Care Team (Latest Contact Info) Description 09/15/2024 1:00 PM EDT PulmDiagnostic Pulmonary Function Lab, [facility] [address] [place] [address] [place], [address] [place] [address] COPD, group B, by GOLD 2017 classification (HCC)*; Dyspnea and respiratory abnormalities Allergies Active Allergy Reactions Criticality Noted Date Comments Metolazone 07/29/2021 Severe HYponatremia Morphine Sulfate Other (Please comment) 006 hallucinate Oxycodone Other (Please comment) 07/07/2006 Hallucinate Penicillins 07/21/2011 Hallucinate documented as of this encounter (statuses as of 09/15/2024) Medications Medication Sig Dispensed Refills Start Date [...] chronic kidney disease not on chronic dialysis ([facility]) Take 2 tablets in AM and [...] COPD, group B, by GOLD 2017 classification ([facility]) Take 1 Capsule by mouth 3 times a day as needed for Cough. 30 Capsule 1 4 Active Vitamin D3 25 MCG (1000 UT) Oral Tablet (Vitamin D3) Take 1 Tablet by mouth in the morning. 30 Tablet 5 4 Active Breo Ellipta 100-25 MCG/ACT Inhalation Aerosol Powder Breath ActivatedIndication s:COPD, group B, by GOLD 2017 classification ([facility]) Inhale 1 Puff by mouth in [...] of less than 8.0% ([facility]) Take 1 Tablet by mouth in [...] mgIndications:COPD, group B, by GOLD 2017 classification ([facility]),Dyspnea and respiratory abnormalities 2.5 mg NEBULIZER PRN 08/29/2024 08/29/2025 Active Albuterol Sulfate (Proventil) (2.5 MG/3ML) 0.083% inhalation solution 2.5 mgIndications:COPD, group B, by GOLD 2017 classification ([facility]),Dyspnea and respiratory abnormalities 2.5 mg NEBULIZER PRN 08/29/2024 08/29/2025 Active documented as of this encounter (statuses as of 09/15/2024) Active Problems Problem Noted Date Diagnosed Date [...] as of this encounter (statuses as of 09/15/2024) Resolved Problems Problem Noted Date Diagnosed Date Resolved Date Hypertensive chronic kidney disease with stage 5 chronic kidney disease or end stage renal disease 01/27/2023 08/24/2023 Atherosclerosis of [place] 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 09/13/2021 [...] as of this encounter (statuses as of 09/15/2024) Immunizations Name Administration Dates Next Due COVID-19 mRNA, LNP-s, No Pre serve, 2-Dose Series ([employer]ics) 10/20/2021,02/28/2021,02/07/2021 COVID-19, MRNA-LNP, 23-24, P F, 30 MCG/0.3 mL, 12 YRS AND ABOVE, [facility] 10/13/2023 Covid-19, Mrna, Lnp-s, Pf, [...] Passive Smoke Exposure: Past Smokeless Tobacco: Never Tobacco Cessation:Counseling Given: Not Answered Alcohol Use Standard Drinks/Week Comments Never 0 [...] Sign Reading Time Taken Comments Blood Pressure 136/78 09/15/2024 1:07 PM EDT Pulse 59 09/15/2024 1:07 PM EDT Temperature - - Respiratory Rate 18 09/15/2024 1:07 PM EDT Oxygen Saturation 97% 09/15/2024 1:07 PM EDT Inhaled Oxygen Concentration - - Weight 95.3 kg (210 lb 1.3 oz) 09/15/2024 1:07 P M EDT Height 163.8 cm (5' 4.5") 09/15/2024 1:07 PM EDT Body Mass Index 35.5 09/15/2024 1:07 PM EDT documented in this [...] as of this encounter Nursing Notes * Jennifer Miller RRT - 09/15/2024 11:53 AM EDT Tre Trejo was identified by name, Date of : (1940), and . Vitals were obtained for testing. Body mass index is 35.5 kg/m. Pt does not have a smoking history. Pt wears 2.5 liters of oxygen at night. 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 Spirometry, DLCO, RAW, and TGV performed. A slow volume nebulizer treatment of 0.5ml of albuterol in 3 ml of NSS was given. The proper method of use, as well as anticipated side effects, of this svn are discussed and demonstrated to the patient. Patient demonstrates adequate delivery. Administrations This Visit Albuterol Sulfate (Proventil) (2.5 MG/3ML) 0.083% inhalation solution 2.5 mg Admin Date 09/15/2024 Action Given Dose 2.5 mg Route Nebulizer Documented By Jennifer Miller RRT 6 minute walk Exercise oximetry performed on room air x 6 minutes. Pt ambulated 1035 feet/ 315 meters. 2 rest periods were required for 30 seconds. Lowest SPO2 on room air was 92%. documented in this encounter Plan of Treatment Upcoming Encounters Date Type Department Care Team (Late st Contact Info) Description 09/16/2024 11:00 AM EDT Hem/Onc Treatment Hematology/Oncology Treatment, [place] [address] [facility] [place] [id number] Ann-Marie, Chair 2 Hem Onc [place] [address] [facility] [place] [address] 09/27/2024 3:20 PM EDT Anticoagulation Pharmacy, [place] [address] [facility], [place] [address] [place] [facility] [address] [facility], [place] [address] 09/27/2024 4:00 PM EDT Office Visit [facility] [place] [address] [facility] [phone] Suman Simpson MD [address] [place] [address] 10/11/2024 3:00 PM EST Office Visit Pulmonary Medicine, [facility] [address] [facility] [place] [address] Bradley Yepez MD [address] [facility] [place] [address] 12/02/2024 2:30 PM EST Office Visit Interventional Pain Center, [facility] [address] [facility] [place] [address] Isis Mcrae PA-C [address] [facility] [place] [address] 03/13/2025 3:00 PM EDT Office Visit Nephrology, [facility] [address] [place] [address] [address] David Jaramillo MD [address] [place] [address] Pending Results Name Type Priority Associated Diagnoses Date /Time SPIROMETRY B/A BRONCHODILATOR Procedures Routine COPD, group B, by GOLD 2017 classification ([facility]) Dyspnea and respiratory abnormalities 09/15/2024 11:57 AM EDT LUNG VOLUMES (PLETHYSMOGRAPHY) Procedures Routine COPD, group B, by GOLD 2017 classification ([facility]) Dyspnea and respiratory abnormalities 09/15/2024 11:57 AM EDT DIFFUSION CAPACITY (DLCO) Procedures Routine COPD, group B, by GOLD 2017 classification ([facility]) Dyspnea and respiratory abnormalities 09/15/2024 11:57 AM EDT Health Maintenance Due Date Last Done Comments [...] Procedure Name Priority Date/Time Associated Diagnosis Comments DIFFUSION CAPACITY (DLCO) Routine 09/15/2024 11:57 AM EDT COPD, group B, by GOLD 2017 classification ([facility]) Dyspnea and respiratory abnormalities LUNG VOLUMES (PLETHYSMOGRAPHY) Routine 09/15/2024 11:57 AM EDT COPD, group B, by GOLD 2017 classification ([facility]) Dyspnea and respiratory abnormalities SPIROMETRY B/A BRONCHODILATOR Routine 09/15/2024 11:57 AM EDT COPD, group B, by GOLD 2017 classification ([facility]) Dyspnea and respiratory abnormalities documented in this encounter Visit Diagnoses Diagnosis COPD, group B, by GOLD 2017 classification ([facility])- Primary Dyspnea and respiratory abnormalities Other dyspnea and respiratory abnormality documented in this encounter Administered Medications Active Administered Medications - up to 3 most recent administrations Medication Order MAR Action Action Date Dose Rate Site Albuterol Sulfate (Proventil) (2.5 MG/3ML) 0.083% inhalation solution 2.5 mg 2.5 mg, Nebulizer, PRN Other, ONCE FOR PFT, Starting on 08/29/24 at 1205, Until Thu08/29/25 at 1204, For 365 days Given 09/15/2024 11:51 AM EDT 2.5 mg documented in this encounter Advance Directives * [...] Agents on File Name Relationship Healthcare Agent [facility] Communication Latia Trejo Spouse Health Care Agent Care Teams Casket Trimmer Relationship Specialty Start Date End Date Suman Simpson MD [address] [place] [address] PCP - General 01/26/03 documented as of this encounter
--- OUTSIDE RECORDS SUMMARY | 2024-11-05 21:45 | External Medical Summary | Summary of Care ---
Author Name Unknown Organization [facility] Address [address] [place] [address] Phone [phone] Care Team Providers Care Package Winder Name Role Phone Suman Simpson MD Primary Care Provider [phone]- [phone] Reason for Visit * Reason Onset Date Comments [facility]: Maintenance 08/22/2024 Encounter Details Date Type Department Care Team (Late st Contact Info) Description 08/22/2024 Telephone [facility], [facility] [address] [employer] [place] [address] Ayla Hoyos, RN [address] [employer] [facility] [place] [address] [facility]: Maintenance Allergies Active Allergy Reactions Criticality Noted Date Comments Metolazone 07/29/2021 Severe HYponatremia Morphine Sulfate Other (Please comment) 006 hallucinate Oxycodone Other (Please comment) 07/07/2006 Hallucinate Penicillins 07/21/2011 Hallucinate documented as of this encounter (statuses as of 09/12/2024) Medications Medication Sig Dispensed Refills Start Date [...] hemoglobin A1c goal of less than 8.0% ([facility]) Use up to 4 times [...] the morning. 90 Capsule 03/07/20 24 Active Gabapentin 100 MG Oral Capsule (Neurontin) Take 1 capsule by mouth twice per day. 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 20 Tablet 08/10/20 24 Active glipiZIDE 5 MG Oral Tablet (Glucotrol)Indica tions:Type 2 diabetes mellitus with hemoglobin A1c goal of less than 8.0% ([facility]) Take 1 Tablet by mouth in the morning. 90 Tablet 3 03/07/20 24 024 Discontinued Metoprolol Succinate ER 100 MG Oral Tablet Extended Release 24 Hour (toPROL XL)Indications:HT N, goal below 140/90 TAKE ONE TABLET BY MOUTH EVERY MORNING AND AT BEDTIME 180 Tablet 3 03/07/20 24 024 Discontinued Breo Ellipta 100-25 MCG/ACT Inhalation Aerosol Powder Breath ActivatedIndicati ons:COPD, group B, by GOLD 2017 classification ([facility]) Inhale 1 Puff by mouth in the morning. 180 Each 3 03/07/20 24 024 Discontinued(Re fill) documented as of this encounter (statuses as of 09/12/2024) Active Problems Problem Noted Date Diagnosed Date [...] as of this encounter (statuses as of 09/12/2024) Resolved Problems Problem Noted Date Diagnosed Date Resolved Date Hypertensive chronic kidney disease with stage 5 chronic kidney disease or end stage renal disease 01/27/2023 08/24/2023 Atherosclerosis of [place] 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 09/13/2021 [...] as of this encounter (statuses as of 09/12/2024) Immunizations Name Administration Dates Next Due COVID-19 mRNA, LNP-s, No Pre serve, 2-Dose Series ([employer]) 10/20/2021,02/28/2021,02/07/2021 COVID-19, MRNA-LNP, 23-24, P F, 30 MCG/0.3 mL, 12 YRS AND ABOVE, IM [facility] 10/13/2023 Covid-19, Mrna, Lnp-s, Pf, B ivalent, 30 Mcg, IM, 12 yrs and above ([facility]) 09/12/2022 HEPATITIS B VACCINE, RECOMB, 20 MCG/ML, [...] encounter Miscellaneous Notes * Telephone Encounter - Ayla Hoyos RN - 08/22/2024 2:47 PM EDT Have been [facility] patient to see if still interested in [facility] services Please send RUST letter. Thank you documented in this encounter Plan of Treatment Upcoming Encounters Date Type Department Care Team (Late st Contact Info) Description 09/13/2024 3:45 PM EDT Telemedicine Orthopaedics [facility] [address] [address] Obdulio Valero MD [address] [place] [address] 09/15/2024 1:00 PM EDT PulmDiagnostic Pulmonary Function Lab, [facility] [address] [place] [address] [address], [address] [place] [address] 09/16/2024 11:00 AM EDT Hem/Onc Treatment Hematology/Oncology Treatment, [place] [address] [address] Ann-Marie, Chair 2 Hem Onc [facility] [address] [facility] [place] [address] 09/27/2024 3:20 PM EDT Anticoagulation Pharmacy, [place] [address] [place] [facility] [place] [address] [place], [facility] [address] [place] [facility] [place] [facility] [address] 09/27/2024 4:00 PM EDT Office Visit Family Practice, [place] [address] [facility] [phone] Suman Simpson MD [address] [place] [address] 10/11/2024 3:00 PM EST Office Visit Pulmonary Medicine, [facility] [address] [facility] [place] [id number] Bradley Yepez MD [address] [place] [id number] 03/13/2025 3:00 PM EDT [facility] [address] [place], [place] [address] David Jaramillo MD [address] [facility] [place], [place] [address] Health Maintenance Due Date Last Done Comments [...] Trejo Spouse Health Care Agent Care Teams Package Winder Relationship Specialty Start Date End Date Suman Simpson MD [address] [facility] [place] [id number] PCP - General 01/26/03 documented as of this encounter
--- OUTSIDE RECORDS SUMMARY | 2024-11-05 21:45 | External Medical Summary | Summary of Care ---
Author Name Unknown Organization [facility] Address [address] [place] [address] Phone [phone] Care Team Providers Care Telephone Directory Deliverer Name Role Phone Suman Simpson MD Primary Care Provider +1- [phone] Reason for Referral * Evaluate & Treat - Unlimited Visits (Within 10 days (routine)) - Authorized Specialty Diagnoses / Procedures Referred By Contac t Referred To Contact Pain Management / Pain Medicine Diagnoses Glenohumeral arthritis, right Glenohumeral arthritis, left Obdulio Valero MD [address] [place] [address] Referral ID Status Reason Start Date Expiration Date Visits Requested Visits Authorized [id number] Authorized Specialty Services Required 4 999 999 Question Answer Referral Priority Within 10 days (routine) Where should this appointment be scheduled? [facility] Reason for referral? Interventional Pain Management - (Injection) What condition is the patient being referred for? Hip/Shoulder/Knee - Nerve ablation - BL shoulder What is the preferred location to have this test performed? [facility] Comments Patient Name: Tre Trejo Date of : 1940 Department Phone Number: MRI or CT (if unable to have a MRI) is recommended if any of the following apply: 1. Patient has neck or back pain with radiation to extremities. A previous MRI will be accepted if symptoms unchanged since prior MRI. 2. Spinal surgery since last MRI. If yes, order a MRI with and without contrast. 3. Hx or ongoing cancer treatment. Patient will need spine x-ray (Ap/Lat) for axial neck or back pain if not done previously. Fax No. [facility] [phone] or contact help desk representative [phone] Fax No. [facility] [phone] or contact help desk representative [phone] Fax No. [facility] [phone] or contact help desk representative [phone] Reason for Visit * Reason Comments Pain Encounter Details Date Type Department Care Team (Late st Contact Info) Description 09/13/2024 3:45 PM EDT Telemedicine Orthopaedics [facility] [address] [place] [address] Obdulio Valero MD [address] [place] [address] Glenohumeral arthritis, right*; Glenohumeral arthritis, left Allergies Active Allergy Reactions Criticality Noted Date Comments Metolazone 07/29/2021 Severe HYponatremia Morphine Sulfate Other (Please comment) 006 hallucinate Oxycodone Other (Please comment) 07/07/2006 Hallucinate Penicillins 07/21/2011 Hallucinate documented as of this encounter (statuses as of 09/13/2024) Medications Medication Sig Dispensed Refills Start Date [...] by mouth in the morning. 90 Capsule 4 Active Gabapentin 100 MG Oral Capsule (Neurontin) Take 1 capsule by mouth twice per day. 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 ([facility]) Take 2 tablets in AM and [...] COPD, group B, by GOLD 2017 classification (FORMERLY [...] as of this encounter (statuses as of 09/13/2024) Active Problems Problem Noted Date Diagnosed Date [...] as of this encounter (statuses as of 09/13/2024) Resolved Problems Problem Noted Date Diagnosed Date Resolved Date Hypertensive chronic kidney disease with stage 5 chronic kidney disease or end stage renal disease 01/27/2023 08/24/2023 Atherosclerosis of [place] 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 09/13/2021 [...] as of this encounter (statuses as of 09/13/2024) Immunizations Name Administration Dates Next Due COVID-19 mRNA, LNP-s, No Pre serve, 2-Dose Series ([employer]) 10/20/2021,02/28/2021,02/07/2021 COVID-19, MRNA-LNP, 23-24, P F, 30 MCG/0.3 mL, 12 YRS AND ABOVE, IM ([facility]) 10/13/2023 Covid-19, Mrna, Lnp-s, Pf, B ivalent, 30 Mcg, IM, 12 yrs and above ([employer]) 09/12/2022 HEPATITIS B VACCINE, RECOMB, 20 MCG/ML, [...] as of this encounter Progress Notes * Obdulio Valero MD - 09/13/2024 10:26 AM EDT Tre Wilcox Neil [id number] Tre Trejo is a 83 year old male who presents for follow-up to [facility] for NEW evaluation of the R shoulder and f/u of the left shoulder injury/pain. I saw him originally for the left shoulder on 04/04/2024 Most recent complete visit for this issue was 04/29/2024, however he has been seen since for procedure only visits Telephone visit done today rather than in office visit. Tre Trejo is here with his daughter History: Level of pain: reviewed and agree with Nursing Notes for HPI elements History on 04/04/2024 - L shoulder -xray 03/09/24 -Pt is Diabetic; A1C 7.2 on 03/07/24 -Pt is accompanied by his Daughter today -Pt c/o 8/10 pain in L shoulder; pain radiates down into upper arm Additional history 04/29/2024: -R shoulder -xray today -Pt is Diabetic; A1C 7.2 on 03/07/24 -L shoulder injection 04/04/24; Pt stated helped for 6 days -Pt c/o 8/10 pain in bilateral shoulder -Pt is unaccompanied today Since that visit: Viscosupplementation with Gelsyn completed on 07/19/2024 in the bilateral shoulder with ultrasound guidance Helped on R shoulder with pain, no change in ROM Did not help on L with pain or ROM ROS: ROS per HPI otherwise non-contributory Past Medical History: Diagnosis Date Allergic rhinitis [...] Sensorineural hearing loss, bilateral 2006 Sleep apnea Family History Problem Relation Name Age of Onset Cancer Mother lung Gastro-intestinal disorder Father obstruction oct Social History Socioeconomic History Marital status: Spouse name: Not on file Number of children: Not on file Years of education: Not on file Highest education level: Not on file Occupational History Occupation: not currently employed Tobacco Use Smoking status: Never Passive exposure: Past Smokeless tobacco: Never Vaping Use Vaping status: Never Used Substance and Sexual Activity Alcohol use: Never Drug use: No Sexual activity: Yes Partners: Female Other Topics Concern Service No Blood Transfusions No Caffeine Concern No 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, 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, 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, 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 Hobby Hazards No Sleep Concern Yes Comment: does not sleep well, wakes after a couple hours Stress Concern No Weight Concern Yes Special Diet No Back Care Not Asked Exercise No Comment: he is active Bike Helmet No Seat Belt Yes Self-Exams Not Asked Social History Narrative Not on file Social Determinants of Health Financial Resource Strain: Not on file Food Insecurity: No Food Insecurity (12/01/2019) Hunger Vital Sign Worried About Running Out of Food in the Last Year: Never true Ran Out of Food in the Last Year: Never true Transportation Needs: Not on file Social Connections: Unknown (05/17/2024) Social Connections How often do you feel lonely or isolated from those around you? (Adult - for ages 18 years and over): Not on file Housing Stability: Not on file Radiology: 04/29/2024: Four view x-ray of the right shoulder FINDINGS: Bones/joints: No acute fracture or dislocation. Glenohumeral joint space narrowing. Acromioclavicular joint space appears maintained. Lungs: Calcified pulmonary granulomas and/or vessels on end. Soft tissues: Normal. 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 03/09/2024: Four view x-rays of the left shoulder FINDINGS: Bones/joints: Severe glenohumeral joint degenerative changes. Severe degenerative changes of the acromioclavicular joint. Narrowing of the subacromial interval. Soft tissues: No soft tissue calcifications. IMPRESSION IMPRESSION: 1. Advanced arthropathy. 2. Probable rotator cuff tear. Assessment and Plan: 1) chronic left shoulder pain Severe DJD, potential rotator cuff tear Glenohumeral joint steroid injection performed with ultrasound guidance 04/04/2024 L shoulder injection 04/04/24; Pt stated helped for 6 days. For those 6 days he reported 100% resolution of his pain. Obviously it did not changes range of motion. Discussed surgical referral again. He has not ready to have that referral but will consider based on results to viscosupplementation. 2) Chronic R shoulder pain Suspect secondary to DJD Patient desired to try intra-articular steroid injection which I performed 04/29/2024 with ultrasound guidance. No significant benefit from that procedure Viscosupplementation with Gelsyn completed on 07/19/2024 in the bilateral shoulder with ultrasound guidance Helped on R shoulder with pain, no change in ROM Did not help on L with pain or ROM Discussed additional options of referral to a surgeon to discuss arthroplasty, however, he reports being told by Cardiology that he would not be a good candidate medically. He is willing to have a consultation with pain management to discuss nerve ablation for the shoulders. Referral placed. -Pt is Diabetic; A1C 7.2 on 03/07/24 Patient also on Coumadin INR from 07/14/24 was 1.6 After connecting to the patient via telephone, the patient was identified by name and date of . Patient was then informed that this was a telephone call only visit. The patient agreed to participate. Visit Disposition: Routine follow-up Total call duration was 5 minutes. Obdulio Valero MD Primary Care Sports Medicine Orthopaedics [facility] [address] [place] [address] documented in this encounter Plan of Treatment Upcoming Encounters Date Type Department Care Team (Late st Contact Info) Description 09/15/2024 1:00 PM EDT PulmDiagnostic Pulmonary Function Lab, [facility] [address] [facility] [place] [address] [place], Pft [address] [facility] [place] [address] 09/16/2024 11:00 AM EDT Hem/Onc Treatment Hematology/Oncology Treatment, [place] [address] [place] [address] Ann[place]Marie, Chair 2 Hem Onc Scenery 200 [facility], [place] [address] 09/27/2024 3:20 PM EDT Anticoagulation Pharmacy, [address] [address] [place] [facility] [address] [place] [address] 09/27/2024 4:00 PM EDT Office Visit [facility], [place] [address] [facility], [place] [phone] Suman Simpson MD [address] [place] [facility] [place] [address] 10/11/2024 3:00 PM EST Office Visit Pulmonary Medicine, [facility] [address] [facility] [place] [address] Bradley Yepez MD [address] [facility] [address] 12/02/2024 2:30 PM EST Office Visit Interventional Pain Center, [facility] [address] [facility] [place] [address] Isis Mcrae PA-C 132 [facility] [place] [address] 03/13/2025 3:00 PM EDT Office Visit Nephrology, [facility] [place] [address] [place] [address] David Jaramillo MD [address] [facility] [place] [address] Scheduled Referrals Name Type Priority Associated Diagnoses Orde r Schedule PAIN MEDICINE REFERRAL OP Referral Within 10 days (routine) Glenohumeral arthritis, right Glenohumeral arthritis, left Ordered: 09/13/2024 Health Maintenance Due Date Last Done Comments [...] as of this encounter Visit Diagnoses Diagnosis Glenohumeral arthritis, right- Primary Glenohumeral arthritis, left documented in this encounter Advance Directives * [...] Trejo Spouse Health Care Agent Care Teams Telephone Directory Deliverer Relationship Specialty Start Date End Date Suman Simpson MD [address] [place] [address] PCP - General 01/26/03 documented as of this encounter
--- OUTSIDE RECORDS SUMMARY | 2024-11-05 21:45 | External Medical Summary | Summary of Care ---
Author Name Unknown Organization [facility] Address [address] [place] [address] Phone [phone] Care Team Providers Care Molder Fitting Name Role Phone Suman Simpson MD Primary Care Provider +1- [phone] Reason for Visit * Reason Comments Pulmonary Function Test PFT with broncho dilator Oxygen Assessment 6 minute walk Encounter Details Date Type Department Care Team (Latest Contact Info) Description 09/15/2024 1:00 PM EDT PulmDiagnostic Pulmonary Function Lab, [facility] [address] [facility] [place] [address] West, Pft [address] [place] [address] COPD, group B, by GOLD 2017 classification [...] goal of less than 8.0% ([facility]) Use up to 4 times [...] disease not on chronic dialysis ([facility]) Take 2 tablets in AM [...] B, by GOLD 2017 classification ([facility]) Take 1 Capsule by mouth 3 times a day as needed for Cough. 30 Capsule 1 4 Active Vitamin D3 25 MCG (1000 UT) Oral Tablet (Vitamin D3) Take 1 Tablet by mouth in the morning. 30 Tablet 5 4 Active Breo Ellipta 100-25 MCG/ACT Inhalation Aerosol Powder Breath ActivatedIndication s:COPD, group B, by GOLD 2017 classification ([facility]) Inhale 1 Puff by mouth [...] goal of less than 8.0% ([facility]) Take 1 Tablet by mouth [...] B, by GOLD 2017 classification ([facility]),Dyspnea and respiratory abnormalities 2.5 mg NEBULIZER PRN 08/29/2024 08/29/2025 Active Albuterol Sulfate (Proventil) (2.5 MG/3ML) 0.083% inhalation solution 2.5 mgIndications:COPD, group B, by GOLD 2017 classification ([facility]),Dyspnea and respiratory abnormalities 2.5 mg [...] stage renal disease 01/27/2023 08/24/2023 Atherosclerosis of [place] 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 09/13/2021 [...] mRNA, LNP-s, No Pre serve, 2-Dose Series ([employer]) 10/20/2021,02/28/2021,02/07/2021 COVID-19, MRNA-LNP, 23-24, P F, 30 MCG/0.3 mL, 12 YRS AND ABOVE, IM ([facility]) 10/13/2023 Covid-19, Mrna, Lnp-s, Pf, B [...] oxygen at night. 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 Spirometry, DLCO, RAW, and TGV performed. A [...] minutes. Pt ambulated 1035 feet/ 315 meters. No rest periods were required. Lowest SPO2 on room air was 92%. documented in this encounter Plan of Treatment Upcoming Encounters Date Type Department Care Team (Late st Contact Info) Description 09/16/2024 11:00 AM EDT Hem/Onc Treatment Hematology/Oncology Treatment, [place] [address] [place] [address] [place], Chair 2 Hem Onc Scenery [address] [place] [address] 09/27/2024 3:20 PM EDT Anticoagulation Pharmacy, [place] [address] [facility], [place] [address] [place] [address] [place] [facility] [address] 09/27/2024 4:00 PM EDT Office Visit Family Practice, [place] [address] [facility], [place] [phone] Suman Simpson MD [address] [place] [address] 10/11/2024 3:00 PM EST Office Visit Pulmonary Medicine, [facility] 132 [facility] [place] [address] Bradley Yepez MD [address] [facility] [address] 12/02/2024 2:30 PM EST Office Visit Interventional Pain Center, [facility] 132 [facility] [place] [address] Isis Mcrae PA-C 132 [facility] [place] [address] 03/13/2025 3:00 PM EDT Office Visit Nephrology, [facility] [address] [place], [place] [address] David Jaramillo MD [address] [place] [address] Health Maintenance Due Date Last Done Comments [...] as of this encounter Visit Diagnoses Diagnosis COPD, group B, by GOLD 2017 classification (HCC)- Primary Dyspnea and respiratory abnormalities Other dyspnea and respiratory abnormality documented in this encounter Administered Medications Active Administered Medications - up to 3 most recent administrations Medication Order MAR Action Action Date Dose Rate Site Albuterol Sulfate (Proventil) (2.5 MG/3ML) 0.083% inhalation solution 2.5 mg 2.5 mg, Nebulizer, PRN Other, ONCE FOR PFT, Starting on Thu08/29/24 at 1205, Until Thu08/29/25 at 1204, For [...] Agents on File Name Relationship Healthcare Agent [facility] Communication Latia Margaret Ignacioderrick Spouse Health Care Agent Care Teams Molder Fitting Relationship Specialty Start Date End Date Suman Simpson MD [address] [place] [address] PCP - General 01/26/03 documented as of this encounter
--- OUTSIDE RECORDS SUMMARY | 2024-11-05 21:45 | External Medical Summary | Summary of Care ---
Author Name Unknown Organization [facility] Address [address] [place] [address] Phone [phone] Care Team Providers Care Museum Specialist Name Role Phone Suman Simpson MD Primary Care Provider +1- [phone] Reason for Visit * Reason Comments IV Therapy Venofer Encounter Details Date Type Department Care Team (Latest Contact Info) Description 09/16/2024 11:00 AM EDT Hem/Onc Treatment Hematology/Oncology Treatment, [address] [address] Ann-Marie, Chair 2 Hem Onc [facility] 200 [place], [place] [id number] Anemia in stage 4 chronic kidney disease [...] hemoglobin A1c goal of less than 8.0% ([facility]) Use up to 4 times a day [...] COPD, group B, by GOLD 2017 classification ([facility]) Take 1 Capsule by mouth 3 times a day as needed for Cough. 30 Capsule 1 4 Active Vitamin D3 25 MCG (1000 UT) Oral Tablet (Vitamin D3) Take 1 Tablet by mouth in the morning. 30 Tablet 5 4 Active Breo Ellipta 100-25 MCG/ACT Inhalation Aerosol Powder Breath ActivatedIndication s:COPD, group B, by GOLD 2017 classification ([facility]) Inhale 1 Puff by mouth in the morning. 180 Each 3 4 Active Metoprolol Succinate ER 100 MG Oral Tablet Extended Release 24 Hour (toPROL XL)Indications:HTN, goal below 140/90 TAKE ONE TABLET BY MOUTH EVERY MORNING AND AT BEDTIME 180 Tablet 1 4 Active glipiZIDE 5 MG Oral Tablet (Glucotrol)Indicati ons:Type 2 diabetes mellitus with hemoglobin A1c goal of less than 8.0% ([facility]) Take 1 Tablet by mouth in the [...] mgIndications:COPD, group B, by GOLD 2017 classification ([facility]),Dyspnea and respiratory abnormalities 2.5 mg NEBULIZER PRN [...] stage renal disease 01/27/2023 08/24/2023 Atherosclerosis of [place] 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 09/13/2021 [...] mRNA, LNP-s, No Pre serve, 2-Dose Series ([employer]) 10/20/2021,02/28/2021,02/07/2021 COVID-19, MRNA-LNP, 23-24, P F, 30 MCG/0.3 mL, 12 YRS AND ABOVE, IM ([facility]) 10/13/2023 Covid-19, Mrna, Lnp-s, Pf, B [...] member, Marylou needs to be called at [phone] once infusion complete, will come to pickuppt [...] Description 09/27/2024 3:20 PM EDT Anticoagulation Pharmacy, [place] [address] [facility], [place] [address] [place], [facility] [address] [facility], [place] [address] 09/27/2024 4:00 PM EDT Office Visit Family Practice, [place] [address] [facility] [phone] Suman Simpson MD [address] [place] [address] 10/11/2024 3:00 PM EST Office Visit Pulmonary Medicine, [facility] [address] [facility] [place] [address] Bradley Yepez MD [address] [facility] [address] 12/02/2024 2:30 PM EST Office Visit Interventional Pain Center, [facility] 132 [facility] [place] [address] Isis Mcrae PA-C [address] [facility] [place] [address] 03/13/2025 3:00 PM EDT Office Visit Nephrology, [place] [address] [place], [place] [address] David Jaramillo MD [address] [place], [place] [address] Health Maintenance Due Date Last Done Comments [...] Agents on File Name Relationship Healthcare Agent [facility] Communication Latia Trejo Spouse Health Care Agent Care Teams Museum Specialist Relationship Specialty Start Date End Date Suman Simpson MD [address] [place] [address] PCP - General 01/26/03 documented as of this encounter
--- OUTSIDE RECORDS SUMMARY | 2024-11-05 21:45 | External Medical Summary | Summary of Care ---
Author Name Unknown Organization [facility] Address [address] [place] [address] Phone [phone] Care Team Providers Care Engineering Operations Leader Name Role Phone Suman Simpson MD Primary Care Provider +1- [phone] Reason for Visit * Reason Onset Date Comments [facility]: Maintenance 09/12/2024 Encounter Details Date Type Department Care Team ([facility] st Contact Info) Description 09/12/2024 Telephone [facility], [facility] [address] [place] [address] Ayla Hoyos, RN [address] [facility] [place] [address] [facility]: Maintenance Allergies Active Allergy [...] goal of less than 8.0% ([facility]) Use up to 4 times [...] disease not on chronic dialysis ([facility]) Take 2 tablets in AM [...] B, by GOLD 2017 classification ([facility]) Take 1 Capsule by mouth 3 times a day as needed for Cough. 30 Capsule 1 4 Active Vitamin D3 25 MCG (1000 UT) Oral Tablet (Vitamin D3) Take 1 Tablet by mouth in the morning. 30 Tablet 5 4 Active Breo Ellipta 100-25 MCG/ACT Inhalation Aerosol Powder Breath ActivatedIndication s:COPD, group B, by GOLD 2017 classification ([facility]) Inhale 1 Puff by mouth [...] goal of less than 8.0% ([facility]) Take 1 Tablet by mouth in the morning. 90 Tablet 1 4 Active Hospital, Clinic, or Other Facility Administered Medication Ordered Dose Route Frequency Start Date End Date Status Albuterol Sulfate (Proventil) (5 MG/ML) 0.5% *conc* inhalation solution 2.5 mgIndications:COPD, group B, by GOLD 2017 classification ([facility]),Dyspnea and respiratory abnormalities 2.5 mg [...] stage renal disease 01/27/2023 08/24/2023 Atherosclerosis of [place] 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 09/13/2021 [...] mRNA, LNP-s, No Pre serve, 2-Dose Series ([employer]) 10/20/2021,02/28/2021,02/07/2021 COVID-19, MRNA-LNP, 23-24, P F, 30 MCG/0.3 mL, 12 YRS AND ABOVE, IM ([facility]) 10/13/2023 Covid-19, Mrna, Lnp-s, Pf, B ivalent, [...] encounter Miscellaneous Notes * Telephone Encounter - Alya Hoyos RN - 09/12/2024 10:15 AM EDT Pt has been [place] for multiple attempts and has not returned calls. [place] letter sent 3 weeks ago. - still no response. Pt graduated from [facility] at this time Will refer back to [facility] for further management, if pt will answer for them. documented in this encounter Plan of Treatment Upcoming Encounters Date Type Department Care Team (Late st Contact Info) Description 09/15/2024 1:00 PM EDT PulmDiagnostic Pulmonary Function Lab, [facility] [address] [facility] [place] [address] [place], [address] [facility] [place] [address] 09/16/2024 11:00 AM EDT Hem/Onc Treatment Hematology/Oncology Treatment, [place] [address] [place] [phone] Ann[place]Marie, Chair 2 Hem Onc Scenery [address] [facility] [address] [place] [address] 09/27/2024 3:20 PM EDT Anticoagulation Pharmacy, [place] [address] [place] [facility] [place] [address] [facility] [address] [place] [facility] [place] [address] 09/27/2024 4:00 PM EDT Office Visit Family [facility], [place] [address] [place] [facility] [place] [phone] Suman Simpson MD [address] [place] [address] 10/11/2024 3:00 PM EST Office Visit Pulmonary Medicine, [facility] [address] [facility] [place] [address] Bradley Yepez MD [address] [place] [address] 03/13/2025 3:00 PM EDT Office Visit Nephrology, [place] [address] [place] [address] David Jaramillo MD [address] [place] [address] Health Maintenance Due Date Last Done Comments [...] Agents on File Name Relationship Healthcare Agent [facility] Communication Latia Trejo Spouse Health Care Agent Care Teams Engineering Operations Leader Relationship Specialty Start Date End Date Suman Simpson MD [address] [place] [address] PCP - General 01/26/03 documented as of this encounter
--- OUTSIDE RECORDS SUMMARY | 2024-11-05 21:45 | External Medical Summary | Summary of Care ---
Author Name Unknown Organization [facility] Address [address] [place] [address] Phone [phone] Care Team Providers Care Frame Catcher Name Role Phone Suman Simpson MD Primary Care Provider +1- [phone] Reason for Visit * Reason Comments IV Therapy Venofer Encounter Details Date Type Department Care Team (Latest Contact Info) Description 09/16/2024 11:00 AM EDT Hem/Onc Treatment Hematology/Oncology Treatment, [address] [address] Ann-Marie, Chair 2 Hem Onc [facility] [address] [place], [place] [id number] Anemia in stage 4 chronic kidney disease [...] stage renal disease 01/27/2023 08/24/2023 Atherosclerosis of 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 09/13/2021 [...] mRNA, LNP-s, No Pre serve, 2-Dose Series ([employer]) 10/20/2021,02/28/2021,02/07/2021 COVID-19, MRNA-LNP, 23-24, P F, 30 MCG/0.3 mL, 12 YRS AND ABOVE, IM ([facility]) 10/13/2023 Covid-19, Mrna, Lnp-s, Pf, B ivalent, [...] member, Marylou needs to be called at [phone] once infusion complete[facility] Safety and Risk for Injury [...] Description 09/27/2024 3:20 PM EDT Anticoagulation Pharmacy, [place] [address] [facility], [place] [address] [place] [address] [facility] [address] 09/27/2024 4:00 PM EDT Office Visit Family Practice, [place] [address] [facility] [id number] Suman Simpson MD [address] [facility] [address] 10/11/2024 3:00 PM EST Office Visit Pulmonary Medicine, [facility] [address] [facility] [place] [address] Bradley Yepez MD [address] [facility] [address] 12/02/2024 2:30 PM EST Office Visit Interventional Pain Center, [facility] [address] [facility] [place] [address] Isis Mcrae PA-C [facility] [address] 03/13/2025 3:00 PM EDT Office Visit Nephrology, [facility] [address] [place], [place] [address] David Jaramillo MD [address] [place] [address] Health Maintenance Due Date Last Done Comments [...] Agents on File Name Relationship Healthcare Agent [facility] Communication Latia Trejo Spouse Health Care Agent Care Teams Frame Catcher Relationship Specialty Start Date End Date Suman Simpson MD [address] [place], [place] [phone] PCP - General 01/26/03 documented as of this encounter
--- OUTSIDE RECORDS SUMMARY | 2024-11-05 21:45 | External Medical Summary | Summary of Care ---
Author Name Unknown Organization [facility] Address [address] [place] [address] Phone [phone] Care Team Providers Care Student Success Counselor Name Role Phone Suman Simpson MD Primary Care Provider +1- [phone] Reason for Visit * Reason Onset Date Comments Appointment Canceled 09/12/2024 Encounter Details Date Type Department Care Team (Late st Contact Info) Description 09/12/2024 Telephone Orthopaedics [facility] [address] [place] [address] Obdulio Valero MD [address] [place] [address] Appointment Canceled Allergies Active Allergy Reactions Criticality Noted Date [...] tab by mouth daily 45 Tablet 3 04/08/202 4 Active Bisacodyl 5 MG Oral Tablet [...] hemoglobin A1c goal of less than 8.0% ([facility]) Use up to 4 times a [...] chronic kidney disease not on chronic dialysis ([facility]) Take 2 tablets in AM and [...] COPD, group B, by GOLD 2017 classification ([facility]) Take 1 Capsule by mouth 3 times a day as needed for Cough. 30 Capsule 1 4 Active Vitamin D3 25 MCG (1000 UT) Oral Tablet (Vitamin D3) Take 1 Tablet by mouth in the morning. 30 Tablet 5 4 Active Breo Ellipta 100-25 MCG/ACT Inhalation Aerosol Powder Breath ActivatedIndication s:COPD, group B, by GOLD 2017 classification ([facility]) Inhale 1 Puff by mouth in the morning. 180 Each 3 4 Active Metoprolol Succinate ER 100 MG Oral Tablet Extended Release 24 Hour (toPROL XL)Indications:HTN, goal below 140/90 TAKE ONE TABLET BY MOUTH EVERY MORNING AND AT BEDTIME 180 Tablet 1 4 Active glipiZIDE 5 MG Oral Tablet (Glucotrol)Indicati ons:Type 2 diabetes mellitus with hemoglobin A1c goal of less than 8.0% ([facility]) Take 1 Tablet by mouth in the morning. 90 Tablet 1 4 Active Hospital, Clinic, or Other Facility Administered Medication Ordered Dose Route Frequency Start Date End Date Status Albuterol Sulfate (Proventil) (5 MG/ML) 0.5% *conc* inhalation solution 2.5 mgIndications:COPD, group B, by GOLD 2017 classification ([facility]),Dyspnea and respiratory abnormalities 2.5 mg NEBULIZER [...] stage renal disease 01/27/2023 08/24/2023 Atherosclerosis of [place] 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 09/13/2021 [...] mRNA, LNP-s, No Pre serve, 2-Dose Series ([employer]) 10/20/2021,02/28/2021,02/07/2021 COVID-19, MRNA-LNP, 23-24, P F, 30 MCG/0.3 mL, 12 YRS AND ABOVE, IM ([facility]) 10/13/2023 Covid-19, Mrna, Lnp-s, Pf, B ivalent, [...] encounter Miscellaneous Notes * Telephone Encounter - Cherelle Tariq, ABRAN - 09/12/2024 8:52 AM EDT Pt had a tele appt this afternoon at 3:30 pm, I was unable to contact pt to make him aware of appt cancellation. No ans no way to leave a message. I will try to contact later documented in this encounter Plan of Treatment Upcoming Encounters Date Type Department Care Team (Late st Contact Info) Description 09/13/2024 3:45 PM EDT Telemedicine Orthopaedics [facility] [address] [facility] [place] [address] Obdulio Valero MD [address] [facility] [place] [address] 09/15/2024 1:00 PM EDT PulmDiagnostic Pulmonary Function Lab, [facility] [address] [facility] [place] [address] [place], [address] [facility] [place] [address] 09/16/2024 11:00 AM EDT Hem/Onc Treatment Hematology/Oncology Treatment, [place] [address] [place] [phone] Ann-aMrie, Chair 2 Hem Onc [place] [address] [facility] [place] [address] 09/27/2024 3:20 PM EDT Anticoagulation Pharmacy, [place] [address] [place] [facility] [place] [address] [place], [facility] [address] [place] [facility] [place] [address] 09/27/2024 4:00 PM EDT Office Visit [facility] [address] [facility] [phone] Suman Simpson MD [address] [place] [facility] [place] [address] 10/11/2024 3:00 PM EST Office Visit Pulmonary Medicine, [facility] [address] [place] [address] Bradley Yepez MD [address] [place] [address] 03/13/2025 3:00 PM EDT [facility] [address] [facility] [place] [address] David Jaramillo MD [address] [place] [address] Health Maintenance Due Date Last Done Comments [...] Agents on File Name Relationship Healthcare Agent [facility] p Communication Latia Trejo Spouse Health Care Agent Care Teams Student Success Counselor Relationship Specialty Start Date End Date Suman Simpson MD [address] [place] [address] PCP - General 01/26/03 documented as of this encounter
--- OUTSIDE RECORDS SUMMARY | 2024-11-05 21:46 | External Medical Summary | Summary of Care ---
Author Name Unknown Organization [facility] Address [address] [place] [address] Phone [phone] Care Team Providers Care Branding Specialist Name Role Phone Suman Simpson MD Primary Care Provider +1- [phone] Reason for Visit * Reason Comments Infusion Venofer Encounter Details Date Type Department Care Team (Latest Contact Info) Description 09/09/2024 11:00 AM EDT Hem/Onc Treatment Hematology/Oncology Treatment, [address] [address] Ann-Marie, Chair [address] [facility] [address] [place] [address] 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)*; End stage renal disease (HCC) Allergies Active Allergy Reactions Criticality Noted Date Comments Metolazone 07/29/2021 Severe HYponatremia Morphine Sulfate Other (Please comment) 006 hallucinate Oxycodone Other (Please comment) 07/07/2006 Hallucinate Penicillins 07/21/2011 Hallucinate documented as of this encounter (statuses as of 09/09/2024) Medications Medication Sig Dispensed Refills Start Date [...] goal of less than 8.0% ([facility]) Use up to 4 times [...] disease not on chronic dialysis ([facility]) Take 2 tablets in AM [...] B, by GOLD 2017 classification ([facility]) Take 1 Capsule by mouth 3 times a day as needed for Cough. 30 Capsule 1 4 Active Vitamin D3 25 MCG (1000 UT) Oral Tablet (Vitamin D3) Take 1 Tablet by mouth in the morning. 30 Tablet 5 4 Active Breo Ellipta 100-25 MCG/ACT Inhalation Aerosol Powder Breath ActivatedIndication s:COPD, group B, by GOLD 2017 classification ([facility]) Inhale 1 Puff by mouth [...] goal of less than 8.0% ([facility]) Take 1 Tablet by mouth in the morning. 90 Tablet 1 4 Active Hospital, Clinic, or Other Facility Administered Medication Ordered Dose Route Frequency Start Date End Date Status Albuterol Sulfate (Proventil) (5 MG/ML) 0.5% *conc* inhalation solution 2.5 mgIndications:COPD, group B, by GOLD 2017 classification ([facility]),Dyspnea and respiratory abnormalities 2.5 mg NEBULIZER PRN 08/29/2024 08/29/2025 Active Albuterol Sulfate (Proventil) (2.5 MG/3ML) 0.083% inhalation solution 2.5 mgIndications:COPD, group B, by GOLD 2017 classification (HCC),Dyspnea and respiratory abnormalities 2.5 mg NEBULIZER PRN 08/29/2024 08/29/2025 Active documented as of this encounter (statuses as of 09/09/2024) Active Problems Problem Noted Date Diagnosed Date [...] as of this encounter (statuses as of 09/09/2024) Resolved Problems Problem Noted Date Diagnosed Date Resolved Date Hypertensive chronic kidney disease with stage 5 chronic kidney disease or end stage renal disease 01/27/2023 08/24/2023 Atherosclerosis of [place] 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 09/13/2021 [...] as of this encounter (statuses as of 09/09/2024) Immunizations Name Administration Dates Next Due COVID-19 mRNA, LNP-s, No Pre serve, 2-Dose Series ([employer]) 10/20/2021,02/28/2021,02/07/2021 COVID-19, MRNA-LNP, 23-24, P F, 30 MCG/0.3 mL, 12 YRS AND ABOVE, IM ([facility]) 10/13/2023 Covid-19, Mrna, Lnp-s, Pf, B [...] - documented in this encounter Functional Status Functional [...] as of this encounter Nursing Notes * Rossy Ortega, RN - 09/09/2024 11:26 AM EDT Patient [...] Team (Late st Contact Info) Description 09/12/2024 3:30 PM EDT Telemedicine Orthopaedics [facility] [address] [place] [address] Obdulio Valero MD [address] [place] [address] 09/15/2024 1:00 PM EDT PulmDiagnostic Pulmonary Function Lab, [facility] [address] [place] [address] [place], [address] [place] [address] 09/16/2024 11:00 AM EDT Hem/Onc Treatment Hematology/Oncology Treatment, [place] [address] [place], [place] [address] Ann-Marie, Chair [address] [facility] [address] [facility] [place] [address] 09/27/2024 3:20 PM EDT Anticoagulation Pharmacy, [place] [address] [place] [address] [facility] [address] [place] [address] 09/27/2024 4:00 PM EDT Office Visit Family Practice, [place] [address] [facility], [place] [address] Suman Simpson MD [address] [place] [address] 10/11/2024 3:00 PM EST Office Visit Pulmonary Medicine, [facility] 132 [facility] [place] [address] Bradley Yepez MD [address] [facility] [id number] 03/13/2025 3:00 PM EDT Office Visit Nephrology, [facility] [address] [place] [address] David Jaramillo MD 200 [facility] [place] [address] Health Maintenance Due Date Last Done Comments [...] ONCE PRN Other, Hypersensitivity Reaction, Starting on 09/09/24 at 1104, Until 09/10/24 at 1103, For 24 hours EPINEPHrine 1 MG/ML inj 0.3 mg 0.3 mg, Intramuscular, ONCE PRN Other, Hypersensitivity Reaction or Anaphylaxis, Starting on Thu09/09/24 at 1104, Until 09/10/24 at 1103, For 24 hours hEParin 100 UNIT/ML Lock Flush inj 500 Units 500 Units (5 mL), IV Lock, PRN Other, IV Flush, Starting on Thu09/09/24 at 1104, Until 09/10/24 at 1103, For 24 hours, Do not flush if lock, PICC, or central line not in place; IV infusing or unable to flush. Hydrocortisone Sod Suc (PF) (Solu-Cortef) inj 100 mg 100 mg, IV Push, ONCE PRN Other, Hypersensitivity Reaction, Starting on Thu09/09/24 at 1104, Until 09/10/24 at 1103, For 24 hours NSS infusion 500 mL, Intravenous, at 50 mL/hr, CONTINUOUS, Starting on Thu09/09/24 at 1215, Until Thu09/09/24 at 2214 Start Infusion 09/09/2024 11:07 AM EDT 500 mL 50 mL/hr oxygen GAS Inhalation, OXYGEN, First dose on Thu09/09/24 at 1145, Until Discontinued, Device/Managed by: Low Flow Device, [...] Push, PRN Other, IV Flush, Starting on Thu09/09/24 at 1104, Until 09/10/24 at 1103, For 24 hours, Do not flush if [...] On Thu09/09/24 at 1245, Administer over 90 Minutes Start Infusion 09/09/2024 11:15 AM EDT 300 mg 180 mL/hr documented [...] Agents on File Name Relationship Healthcare Agent [facility] Communication Latia Margaret Ignacioderrick Spouse Health Care Agent Care Teams Branding Specialist Relationship Specialty Start Date End Date Suman Simpson MD [address] [place] [address] PCP - General 01/26/03 documented as of this encounter
--- OUTSIDE RECORDS SUMMARY | 2024-11-05 21:46 | External Medical Summary | Summary of Care ---
Author Name Unknown Organization [facility] Address [address] [place] [address] Phone [phone] Care Team Providers Care Compressor Mechanic Bus Name Role Phone Suman Simpson MD Primary Care Provider [phone] Reason for Visit * Reason Comments NEW PATIENT New pulm. COPD. Hemo pytsis chronic GUALLPA, SOB. * Evaluate & Treat - Unlimited Visits (Within 3 days (urgent)) - Authorized Specialty Diagnoses / Procedures Referred By Contac t Referred To Contact Pulmonary Diseases / Pulmonary Diagnoses COPD, group B, by GOLD 2017 classification ([facility]) GUALLPA (dyspnea on exertion) Greg Rodrigues MD [address] [place] [address] Referral ID Status Reason Start Date Expiration Date Visits Requested Visits Authorized [id number] Authorized Specialty Services Required 08/23/[phone] Encounter Details Date Type Department Care Team (Latest Contact Info) Description 08/29/2024 11:20 AM EDT Office Visit Pulmonary Medicine, [facility] [address] [facility] [place] [address] Bradley Yepez MD [address] [place] [address] Dyspnea and respiratory abnormalities*; COPD, group B, by GOLD 2017 classification ([facility]) Allergies Active Allergy Reactions Criticality Noted Date Comments Metolazone 07/29/2021 Severe HYponatremia Morphine Sulfate Other (Please comment) 006 hallucinate Oxycodone Other (Please comment) 07/07/2006 Hallucinate Penicillins 07/21/2011 Hallucinate documented as of this encounter (statuses as of 08/29/2024) Medications Medication Sig Dispensed Refills Start Date [...] or two tablets 30 Tablet 4 Active glipiZIDE 5 MG Oral Tablet (Glucotrol)Indicat ions:Type 2 diabetes mellitus with hemoglobin A1c goal of less than 8.0% (HCC) Take 1 Tablet by mouth in the morning. 90 Tablet 4 Active Isosorbide Dinitrate 20 MG [...] in the morning. 90 Tablet 4 Active Metoprolol Succinate ER 100 MG Oral Tablet Extended Release 24 Hour (toPROL XL)Indications:HTN , goal below 140/90 TAKE ONE TABLET BY MOUTH EVERY MORNING AND AT BEDTIME 180 Tablet 4 Active OneTouch Verio In Vitro Strip (Glucose Blood)Indications: Type 2 diabetes mellitus with hemoglobin A1c goal of less than 8.0% (HCC) Use up to 4 times a day [...] 4 Active Torsemide 100 MG Oral Tablet (Demadex)Indicatio [...] Tablet 4 Active Benzonatate 100 MG Oral CapsuleIndications :COPD, group B, by GOLD 2017 classification ([facility] [...] ns:COPD, group B, by GOLD 2017 classification ([facility]) Inhale 1 Puff by mouth in the morning. 180 Each 3 4 Active Breo Ellipta 100-25 MCG/ACT Inhalation Aerosol Powder Breath ActivatedIndicatio ns:COPD, group B, by GOLD 2017 classification ([facility]) Inhale 1 Puff by mouth in the morning. 180 Each 3 4 08/29/20 24 Discontinu ed(Refill) Hospital, Clinic, or Other Facility Administered Medication [...] as of this encounter (statuses as of 08/29/2024) Active Problems Problem Noted Date Diagnosed Date [...] as of this encounter (statuses as of 08/29/2024) Resolved Problems Problem Noted Date Diagnosed Date Resolved Date Hypertensive chronic kidney disease with stage 5 chronic kidney disease or end stage renal disease 01/27/2023 08/24/2023 Atherosclerosis of [place] 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 09/13/2021 [...] as of this encounter (statuses as of 08/29/2024) Immunizations Name Administration Dates Next Due COVID-19 mRNA, LNP-s, No Pre serve, 2-Dose Series (Invesdor) 10/20/2021,02/28/2021,02/07/2021 COVID-19, MRNA-LNP, 23-24, P F, 30 MCG/0.3 mL, 12 YRS AND ABOVE, IM ([facility]) 10/13/2023 Covid-19, Mrna, Lnp-s, Pf, B ivalent, 30 Mcg, IM, 12 yrs and above (Invesdor) 09/12/2022 HEPATITIS B VACCINE, RECOMB, 20 MCG/ML, ADULT (HEPLISAV-B) 09/19/2023 Pneumococcal Conjugate Vacc, 13 Valent (Prevnar) 08/02/2015 Pneumococcal Polysaccharide PPV23 (Pneumovax) 08/31/2012 Seasonal Influenza Virus Vac cine, Unspecified Formulation 09/10/2020,12/01/2019,08/26/2018,08/27,08/26/2016,08/31/2012,09/12/2011 ,09/05/2010,12/18/2009,10/09/2008,08/30,09/22/2006 Seasonal Influenza, PF, 6 M & above, IM , (FluLaval or Fluzone) 09/10/2020,08/26/2018,08/27/2017 Seasonal Influenza, Quadriva lent Hd (Fluzone Hd) 08/12/2023,09/19/2022,09/12/2021 Seasonal Influenza, Quadriva lent Hd, 65+ Yrs 08/12/2023,09/19/2022,09/12/2021 Seasonal Influenza, Trivalen t, (IIV3), with Preserv, (Fluzone) 08/26/2016,08/31/2012,09/12/2011,09/05,12/18/2009,10/09/2008,09/15/2007 ,09/22/2006 Seasonal Influenza, Trivalen t, Adjuvanted, 65+ YRS, [...] Sign Reading Time Taken Comments Blood Pressure 120/66 08/29/2024 11:26 AM EDT Pulse 66 08/29/2024 11:26 AM EDT Temperature 36.3 C (97.3 F) 08/29/2024 11:26 AM E DT Respiratory Rate 16 08/29/2024 11:26 AM EDT Oxygen Saturation 95% 08/29/2024 11:26 AM EDT ra-rest Inhaled Oxygen Concentration - - Weight 93.9 kg (207 lb) 08/29/2024 11:26 AM EDT Height 175.3 cm (5' 9") 08/29/2024 11:26 AM EDT Body Mass Index 30.57 08/29/2024 11:26 AM EDT documented in this encounter Functional Status [...] as of this encounter Progress Notes * Bradley Yepez MD - 08/29/2024 11:40 AM EDT 08/29/2024 [facility] [address] [address] [id number] Wojciech Trejo 1940 male 84 year old Attending Physician Documentation: 84-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[place]) Lifetime nonsmoker Moderate Pulm HTN , Echo 12/2023, PAP 39 mm HG ( was 54 mmHg in prior echo) ?COPD AFib, Warfarin anticoagulation therapy status Nocturnal Home Oxygen Therapy Status Hypertension BPH Remote History of hemoptysis, currently resolved Current BD Rx: Breo, Rescue Albuterol Physical examination: Alert, awake, oriented, wheelchair status Class 3 throat No JVD Adequate air entry, scattered coarse wheezing, no dullness S1, S2, no murmur Soft, nontender abdomen No lower extremity edema Nonlateralizing Neuro examination Multifactorial dyspnea, likely triggers include cardiac risk factors and moderate pulmonary hypertension Patient and family concerned regarding need for home oxygen therapy Follow Up: Return for Clinic Visit. 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 TECHNIQUE PA and lateral views of the chest are examined. FINDINGS No focal airspace consolidation. Minimal basilar atelectatic changes versus scarring. There is no pleural effusion. The pulmonary vasculature and cardiomediastinal silhouette are within normal limits. No acute osseous finding. Posterior instrumented spinal hardware is noted of the partially visualized lumbar spine. IMPRESSION No evidence of pneumonia. Subjective CC: Chief Complaint Patient presents with NEW PATIENT New pulm. COPD. Hemopytsis chronic GUALLPA, SOB. HPI: Nursing Notes: Marysol James LPN 08/29/24 1137 Signed Chief Complaint Patient presents with NEW PATIENT New pulm. COPD. Hemopytsis chronic GUALLPA, SOB. Interm History/Respiratory Symptoms Cough: yes- clear phlegm. Hemoptysis: yes- 2 weeks ago after coughing for about 10 minutes was clotty blood patients daughterreports Sinus Symptoms: no,drainage Hospitalizations: no ED Trips: no Triggers: pollen Nocturnal: sleeps with head elevated CPAP/BiPAP/O2: O2 2.5 L DME Supplier: Flu Vaccine: 2022 Pneumovax: 2008 Prevnar: 58780 COVID 19: X5. / Travel Screening Question 08/29/2024 11:09 AM EDT - Filed by Patient Do you have any of the following new or worsening symptoms? Cough Shortness of breath Have you recently been in contact with someone who was sick? No / Unsure Myc Visit Accident Related Question Question 08/29/2024 11:09 AM EDT - Filed by Patient Is this visit related to an accident? (i.e work, motor vehicle) No Mmrc Cat Question 08/29/2024 11:24 AM EDT - Filed by Marysol James LPN When do you become breathless? (4) I am too breathless to leave the house or I am breathless when dressing How frequently do you cough? (3) Do you have phlegm in your chest? (0) - I have no phlegm (mucus) in my chest Is your chest tight? (0) - My [...] you leaving home with your lung condition? (0) - I am confident leaving my home despite my condition How soundly do you sleep? (4) How much energy do you have? (5) - I have no energy at all Total MMRC Score (range: 0 - 4) 4 Total CAT Score (range: 0 - 40) 22 Objective Filed Vitals: 08/29/24 1126 BP: 120/66 Pulse: 66 Resp: 16 Temp: 36.3 C (97.3 F) TempSrc: Tympanic SpO2: 95% Weight: 93.9 kg (207 lb) Height: 1.753 m (5' 9") Exam: Const: No signs of acute distress [...] THIS DOCUMENT HAS BEEN ELECTRONICALLY SIGNED BY LA TANG MD XR SHOULDER, 2 OR MORE VIEWS Result Date: 03/16/2024 IMPRESSION: 1. Advanced arthropathy. 2. Probable rotator cuff tear. THIS DOCUMENT HAS BEEN ELECTRONICALLY SIGNED BY WOJCIECH BONNER MD Available Radiologic data was reviewed by me in PACS. The images were shown to the patient and findings were discussed with the patient. HOME MEDICATIONS: Breo Ellipta 100-25 MCG/ACT Inhalation Aerosol Powder Breath Activated Vitamin D3 25 MCG (1000 UT) Oral Tablet (Vitamin D3) Benzonatate 100 MG Oral Capsule Ondansetron 4 MG Oral Tablet Disintegrating (Zofran) Multiple Vitamins Oral Tablet Warfarin Sodium 2.5 MG Oral Tablet (Jantoven) Torsemide 100 MG Oral Tablet (Demadex) Gabapentin 100 MG Oral Capsule (Neurontin) Allopurinol 100 MG Oral Tablet (Zyloprim) Bisacodyl 5 MG Oral Tablet Delayed Release (Dulcolax) glipiZIDE 5 MG Oral Tablet (Glucotrol) Isosorbide Dinitrate 20 MG Oral Tablet (Isordil) Levothyroxine Sodium 88 MCG Oral Tablet (Levoxyl) Losartan Potassium 25 MG Oral Tablet (Cozaar) Metoprolol Succinate ER 100 MG Oral Tablet Extended Release 24 Hour (toPROL XL) OneTouch Verio In Vitro Strip (Glucose Blood) Pantoprazole Sodium 40 MG Oral Tablet Delayed Release (Protonix) Sennosides-Docusate Sodium 8.6-50 MG Oral Tablet (Senokot-S) Tamsulosin HCl 0.4 MG Oral Capsule (Flomax) MULTIVITAL PO TABS VITAMIN C 500 MG PO TABS Silver sulfADIAZINE 1 % External Cream (Silvadene) [...] ALLERGIC RHINITIS 2006 Other acute otitis externa 2005 Presbyacusis 2005 Restless leg syndrome by sleep study Sensorineural hearing loss, bilateral 2005 Sleep apnea Past Surgical History: Procedure Laterality [...] performed by Maurisio Mike, DO at OR [facility] GRAFT EAR CARTILAGE TO NOSE/EAR N/A 02/09/2019 GRAFT EAR CARTILAGE TO EAR OR NOSE performed by Amanda Marcelino [place] [facility] INFORMATION 1988 ear surg, nerve cut dysequilibrium left [facility] INFORMATION amputation tip rt index finger, accident INFORMATION back surgery INJECT DX/THER SUBSTANCE INTERLAMINAR LUMBAR/SACRAL W IMAGE GUIDE 06/27/2019 INJECTION SPINE LUMBAR OR SACRAL performed by Maurisio Mike, DO at OR [facility] INJECT DX/THER SUBSTANCE INTERLAMINAR LUMBAR/SACRAL W IMAGE GUIDE 07/14/2019 INJECTION SPINE LUMBAR OR SACRAL performed by Anahu[place] Jeromy Mike, DO at OR [facility] KNEE ARTHROSCOPY, DIAGNOSTIC Knee Arthroscopy right Dr Wang L-/S-SPINE PARAVERTEBRAL FACET INJ,1 LEVEL 08/18/2019 L-/S-SPINE PARAVERTEBRAL FACET INJ, 1 LEVEL performed by [place] Jeromy Mike, DO at OR [facility] L-/S-SPINE PARAVERTEBRAL FACET INJ,1 LEVEL 09/05/2019 L-/S-SPINE PARAVERTEBRAL FACET INJ, 1 LEVEL performed by Maurisio Mike, DO at OR [facility] NASAL SEPTUM CARTILAGE FOR GRAFT N/A 02/09/2019 OBTAIN CARTILAGE GRAFT NASAL SEPTUM performed by Amanda Marcelino MD at [place] [facility] RECONSTRUCTION OF NOSE/SEPTUM N/A 02/09/2019 RHINOPLASTY COMPLETE INCLUDING MAJOR SEPTAL REPAIR performed by Amanda Marcelino MD [place] [facility] REMOVE CATARACT, INSERT LENS PROSTH Bilateral 2017 Dr Vinson REMOVE NECK SPINE LAMINA, 1-2 SEGS Cervical Laminectomy [facility] REMOVE RIB CARTILAGE FOR GRAFT N/A 02/09/2019 OBTAIN CARTILAGE GRAFT COSTOCHONDRAL performed by Amanda Marcelino MD [place] [facility] REMOVE TONSILS & ADENOIDS, UNDER 12 Tonsillectomy/Adenoids,<12 Y/O REPAIR INGUINAL HERNIA, UNDER AGE 5 Inguinal Hernia Repair,6mo-5yr,Reduc REPAIR RUPTURED ROTATOR CUFF, CHRON Rotator Repair Cuff,Chronic left REVISION OF PALATE, PHARYNX/UVULA 03/28/2014 PALATOPHARYNGOPLASTY performed by Too Medina MD [place] [facility] SMALL BOWEL ENDOSCOPY W/BX 06/07/2010 hiatal hernia [...] Bike Helmet No Seat Belt Yes Social Determinants of Health Food Insecurity: No Food Insecurity (12/01/2019) Hunger Vital Sign Worried About Running Out of Food in the Last Year: Never true Ran Out of Food in the Last Year: Never true Social Connections Family History Problem Relation Name Age of Onset Cancer Mother lung Gastro-intestinal disorder Father obstruction oct Review of patient's allergies indicates: Allergen Reactions Metolazone Severe HYponatremia Morphine [Morphine Sulfate] Other (Please comment) hallucinate Oxycodone [Oxycodone] Other (Please comment) Hallucinate Penicillins Hallucinate documented in this encounter Nursing Notes * Marysol James LPN - 08/29/2024 11:28 AM EDT Chief Complaint Patient presents with NEW PATIENT New pulm. COPD. Hemopytsis chronic GUALLPA, SOB. Interm History/Respiratory Symptoms Cough: yes- clear phlegm. Hemoptysis: yes- 2 weeks ago after coughing for about 10 minutes was clotty blood patients daughterreports Sinus Symptoms: no,drainage Hospitalizations: no ED Trips: no Triggers: pollen Nocturnal: sleeps with head elevated CPAP/BiPAP/O2: O2 2.5 L DME Supplier: Flu Vaccine: 2022 Pneumovax: 2009 Prevnar: 26518 COVID 19: X5. / Travel Screening Question 08/29/2024 11:09 AM EDT - Filed by Patient Do you have any of the following new or worsening symptoms? Cough Shortness of breath Have you recently been in contact with someone who was sick? No / Unsure Myc Visit Accident Related Question Question 08/29/2024 11:09 AM EDT - Filed by Patient Is this visit related to an accident? (i.e work, motor vehicle) No Mmrc Cat Question 08/29/2024 11:24 AM EDT - Filed by Marysol James LPN When do you become breathless? (4) I am too breathless to leave the house or I am breathless when dressing How frequently do you cough? (3) Do you have phlegm in your chest? (0) - I have no phlegm (mucus) in my chest Is your chest tight? (0) - My [...] you leaving home with your lung condition? (0) - I am confident leaving my home despite my condition How soundly do you sleep? (4) How much energy do you have? (5) - I have no energy at all Total MMRC Score (range: 0 - 4) 4 Total CAT Score (range: 0 - 40) 22 documented in this encounter Plan of Treatment Upcoming Encounters Date Type Department Care Team (Late st Contact Info) Description 08/31/2024 3:00 PM EDT Nurse Only Ancillary Department, [place] [address] [place] [address] [place], Nurse [address] [place] [address] 09/02/2024 11:00 AM EDT Hem/Onc Treatment Hematology/Oncology Treatment, [address], [place] [phone] Ann[place], Chair 2 Hem On[address] [place] [address] 09/09/2024 11:00 AM EDT Hem/Onc Treatment Hematology/Oncology Treatment[address], [place] [phone] Ann-Marie, Chair 1 Hem Onc [address] [place] [address] 09/12/2024 3:30 PM EDT Telemedicine Orthopaedics [facility] [address] [place] [address] Obdulio Valero MD [address] [place] [address] 09/15/2024 1:00 PM EDT PulmDiagnostic Pulmonary Function Lab, [facility] [address] [place], [place] [address] [place], Pft [address] [facility] [place], [place] [address] 09/16/2024 11:00 AM EDT Hem/Onc Treatment Hematology/Oncology Treatment, [place] [address] [place], [place] [phone] Ann-Marie, Chair 2 Hem Onc [address] [place] [address] 09/27/2024 3:20 PM EDT Anticoagulation Pharmacy, [place] [address] [place] [address] [facility] [address] [place] [address] 09/27/2024 4:00 PM EDT Office Visit Family Practice, [place] [address] [place] [facility] [place] [phone] Suman Simpson MD [address] [place] [address] 10/11/2024 3:00 PM EST Office Visit Pulmonary Medicine, [facility] [address] [facility] [place] [address] Bradley Yepez MD [address] [facility] [address] 03/13/2025 3:00 PM EDT Office Visit Nephrology, [facility] Ann-Marie [address] [place], [place] [address] David Jaramillo MD [address] [facility] [place], [place] [address] Scheduled Orders Name Type Priority Associated Diagnoses Orde r Schedule PULMONARY STRESS TESTING Procedures Routine COPD, group B, by GOLD 2017 classification (HCC) Dyspnea and respiratory abnormalities Expected: 08/30/2024, Expires: 09/28/2025 DIFFUSION CAPACITY (DLCO) Procedures Routine COPD, group B, by GOLD 2017 classification ([facility]) Dyspnea and respiratory abnormalities Expected: 09/05/2024, Expires: 09/28/2025 LUNG VOLUMES (PLETHYSMOGRAPHY) Procedures Routine COPD, group B, by GOLD 2017 classification ([facility]) Dyspnea and respiratory abnormalities Expected: 09/05/2024, Expires: 09/28/2025 SPIROMETRY B/A BRONCHODILATOR Procedures Routine COPD, group B, by GOLD 2017 classification ([facility]) Dyspnea and respiratory abnormalities Expected: 09/05/2024, Expires: 09/28/2025 BNP, NT-PRO Lab Routine COPD, group B, by GOLD 2017 classification ([facility]) Dyspnea and respiratory abnormalities Ordered: 08/29/2024 Health Maintenance Due Date Last Done Comments Adult Wellness Visit 2007 COVID-19 Vaccine ( season) 2024 10/13/2023, 09/12/2022, 10/20/2021, Additional history exists Influenza Vaccine (FLU shot) (#1) 2024 08/12/2023, 08/12/2023, 09/19/2022, Additional history exists HbA1c 09/06/2024 03/07/2024, 12/31, [...] ASSESSMENT COMPLETED IN PAST YEAR FOR COPD 08/29/2025 08/29/2024 DTap/Tdap Vaccines (4 - Td or Tdap) 01/13/2033 01/13/2023, 01/13/2023, 01/04/2013, Additional history exists Pneumococcal Vaccine: 65+ Years Completed 08/02/2015, 08/31/2012, 10/25/2002 Alpha-1 Antitrypsin Completed 09/06/2018 RETIRED - COLONOSCOPY-EVERY 5 YRS AGES 18-100 Discontinued 09/04/2023, 01/08/2010 Hepatitis B Vaccine Discontinued 09/19/2023 Nephrology Referral Discontinued 07/26/2024, 01/24/2014, 07/16/2011, Additional history exists HPV (Gardasil) Vaccine Aged Out No lo nger eligible based on patient's age to complete this topic MENINGOCOCCAL (MENACTRA/MENVEO) Aged Out No longer eligible based on patient's age to complete this topic documented as of this encounter Medical Devices Not on filedocumented as of this encounter Visit Diagnoses Diagnosis Dyspnea and respiratory abnormalities- Primary Other dyspnea and respiratory abnormality COPD, group B, by GOLD 2017 classification ([facility]) documented in this encounter Advance Directives * [...] Agents on File Name Relationship Healthcare Agent [facility] Communication Latia Robles Ficlesliederrick Spouse Health Care Agent Care Teams Compressor Mechanic Bus Relationship Specialty Start Date End Date Suman Simpson MD [address] [place] [address] PCP - General 01/26/03 documented as of this encounter
--- OUTSIDE RECORDS SUMMARY | 2024-11-05 21:46 | External Medical Summary | Summary of Care ---
Author Name Unknown Organization [facility] Address [address] [place] [address] Phone [phone] Care Team Providers Care Legal Financial Specialist Name Role Phone Suman Simpson MD Primary Care Provider +1- [phone] Reason for Visit * Reason Onset Date Comments Medication Management 08/24/2024 Venofer Encounter Details Date Type Department Care Team (Late st Contact Info) Description 08/24/2024 Telephone Hematology/Oncology Treatment, [place] [address] [place] [address] David Jaramillo MD [address] [place] [address] Medication Management (Venofer) Allergies Active Allergy Reactions Criticality Noted Date Comments Metolazone 07/29/2021 Severe HYponatremia Morphine Sulfate Other (Please comment) 006 hallucinate Oxycodone Other (Please comment) 07/07/2006 Hallucinate Penicillins 07/21/2011 Hallucinate documented as of this encounter (statuses as of 08/25/2024) Medications Medication Sig Dispensed Refills Start Date [...] the morning. 90 Capsule 3 4 Active Breo Ellipta 100-25 MCG/ACT Inhalation Aerosol Powder Breath ActivatedIndication s:COPD, group B, by GOLD 2017 classification ([facility]) Inhale 1 Puff by mouth in the morning. 180 Each 3 4 Active Gabapentin 100 MG Oral Capsule (Neurontin) Take 1 capsule by mouth twice per day. 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 30 Capsule 1 4 Active Vitamin D3 25 MCG (1000 UT) Oral Tablet (Vitamin D3) Take 1 Tablet by mouth in the morning. 30 Tablet 5 4 Active documented as of this encounter (statuses as of 08/25/2024) Active Problems Problem Noted Date Diagnosed Date [...] as of this encounter (statuses as of 08/25/2024) Resolved Problems Problem Noted Date Diagnosed Date Resolved Date Hypertensive chronic kidney disease with stage 5 chronic kidney disease or end stage renal disease 01/27/2023 08/24/2023 Atherosclerosis of [place] 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 09/13/2021 [...] as of this encounter (statuses as of 08/25/2024) Immunizations Name Administration Dates Next Due COVID-19 mRNA, LNP-s, No Pre serve, 2-Dose Series (Chumbak) 10/20/2021,02/28/2021,02/07/2021 COVID-19, MRNA-LNP, 23-24, P F, 30 MCG/0.3 mL, 12 YRS AND ABOVE, IM (GoPollGo-Comirnat) 10/13/2023 Covid-19, Mrna, Lnp-s, Pf, B ivalent, 30 Mcg, IM, 12 yrs and above ([employer]ak) 09/12/2022 HEPATITIS B VACCINE, RECOMB, 20 MCG/ML, ADULT (HEPLISAV-B) 09/19/2023 Pneumococcal Conjugate Vacc, 13 Valent (Prevnar) 08/02/2015 Pneumococcal Polysaccharide PPV23 (Pneumovax) 08/31/2012,10/25/2002 Seasonal Influenza Virus Vac cine, Unspecified Formulation [...] encounter Miscellaneous Notes * Telephone Encounter - Bill Donahue OSA - 08/25/2024 10:13 AM EDT Patient scheduled and is aware * Telephone Encounter - Lakeisha Coulter RN - 08/25/2024 7:27 AM EDT [place] is signed. Scheduling: please call patient to schedule 2 hour appt "venofer 12/02" (Dr David Jaramillo). Thanks! Patient will need venofer once a week x3. * Telephone Encounter - Evette Glover LPN - 08/24/2024 2:56 PM EDT Order received for Venofer [place] plan built and routed to provider No prior authorization required Awaiting provider signature before scheduling patient documented in this encounter Plan of Treatment Upcoming Encounters Date Type Department Care Team (Late st Contact Info) Description 08/29/2024 11:20 AM EDT Office Visit Pulmonary Medicine, [facility] [address] [place] [address] Bradley Yepez MD [address] [place] [address] 08/31/2024 3:00 PM EDT Nurse Only Ancillary Department, [address] [address] [place], Nurse [address] [place] [address] 09/02/2024 11:00 AM EDT Hem/Onc Treatment Hematology/Oncology Treatment, [address] [place] [phone] Ann-Marie, Chair 2 Hem Onc [address] [address] 09/09/2024 11:00 AM EDT Hem/Onc Treatment Hematology/Oncology Treatment, [address] [place] [phone] Ann-Marie, Chair 1 Hem Onc [facility] [address] [place] [address] [place] [address] 09/12/2024 3:30 PM EDT Telemedicine Orthopaedics [facility] [address] [place] [address] Obdulio Valero MD [address] [place] [address] 09/16/2024 11:00 AM EDT Hem/Onc Treatment Hematology/Oncology Treatment, [place] [address] [place] [address] Ann-Marie, Chair 2 Hem Onc [facility] [address] [facility] [place], [place] [address] 09/27/2024 3:20 PM EDT Anticoagulation Pharmacy, [place] [address] [place] [address] [facility] [address], [place] [id number] 09/27/2024 4:00 PM EDT Office Visit Family Practice, [place] [address] [place] [phone] Suman Simpson MD [address] [place] [address] 03/13/2025 3:00 PM EDT Office Visit Nephrology, [facility] [address] [place] [address] David Jaramillo MD [address] [facility] [place], [place] [address] Health Maintenance Due Date Last Done Comments [...] ASSESSMENT COMPLETED IN PAST YEAR FOR COPD 08/23/2025 08/23/2024 DTap/Tdap Vaccines (4 - Td or Tdap) [...] Agents on File Name Relationship Healthcare Agent [employer] p Communication Latia Trejo Spouse Health Care Agent Care Teams Legal Financial Specialist Relationship Specialty Start Date End Date Suman Simpson MD [address] [place] [address] PCP - General 01/26/03 documented as of this encounter
--- OUTSIDE RECORDS SUMMARY | 2024-11-05 21:46 | External Medical Summary | Summary of Care ---
Author Name Unknown Organization [facility] Address [address] [place] [address] Phone [phone] Care Team Providers Care Fence Supervisor Name Role Phone Suman Simpson MD Primary Care Provider +1- [phone] Reason for Visit * Reason Onset Date Comments Medication Administration 09/02/2024 Flu an d/or Pneumo Inj IV Therapy Venofer 12/02 Encounter Details Date Type Department Care Team (Latest Contact Info) Description 09/02/2024 11:00 AM EDT Hem/Onc Treatment Hematology/Oncology Treatment, [address] [phone] Ann-Marie, Chair 2 Hem Onc [facility] [address] [place], [place] [phone] 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)*; End stage renal disease (HCC); Need for prophylactic vaccination and inoculation against influenza Allergies Active Allergy Reactions Criticality Noted Date Comments Metolazone 07/29/2021 Severe HYponatremia Morphine Sulfate Other (Please comment) 006 hallucinate Oxycodone Other (Please comment) 07/07/2006 Hallucinate Penicillins 07/21/2011 Hallucinate documented as of this encounter (statuses as of 09/02/2024) Medications Medication Sig Dispensed Refills Start Date [...] two tablets 30 Tablet 11 4 Active glipiZIDE 5 MG Oral Tablet (Glucotrol)Indicati ons:Type 2 diabetes mellitus with hemoglobin A1c goal of less than 8.0% (HCC) Take 1 Tablet by mouth in the morning. 90 Tablet 3 4 Active Isosorbide Dinitrate 20 MG Oral [...] MORNING AND AT BEDTIME 180 Tablet 3 4 Active OneTouch Verio In [...] disease not on chronic dialysis ([facility]) Take 2 tablets in AM [...] B, by GOLD 2017 classification ([facility]) Take 1 Capsule by mouth 3 times a day as needed for Cough. 30 Capsule 1 4 Active Vitamin D3 25 MCG (1000 UT) Oral Tablet (Vitamin D3) Take 1 Tablet by mouth in the morning. 30 Tablet 5 4 Active Breo Ellipta 100-25 MCG/ACT Inhalation Aerosol Powder Breath ActivatedIndication s:COPD, group B, by GOLD 2017 classification ([facility]) Inhale 1 Puff by mouth in the morning. 180 Each 3 4 Active Hospital, Clinic, or Other Facility Administered Medication Ordered Dose Route Frequency Start Date End Date Status Albuterol Sulfate (Proventil) (5 MG/ML) 0.5% *conc* inhalation solution 2.5 mgIndications:COPD, group B, by GOLD 2017 classification ([facility]),Dyspnea and respiratory abnormalities 2.5 mg NEBULIZER PRN 08/29/2024 08/29/2025 Active Albuterol Sulfate (Proventil) (2.5 MG/3ML) 0.083% inhalation solution 2.5 mgIndications:COPD, group B, by GOLD 2017 classification ([facility]),Dyspnea and respiratory abnormalities 2.5 mg NEBULIZER PRN 08/29/2024 08/29/2025 Active documented as of this encounter (statuses as of 09/02/2024) Active Problems Problem Noted Date Diagnosed Date [...] as of this encounter (statuses as of 09/02/2024) Resolved Problems Problem Noted Date Diagnosed Date Resolved Date Hypertensive chronic kidney disease with stage 5 chronic kidney disease or end stage renal disease 01/27/2023 08/24/2023 Atherosclerosis of [place] 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 09/13/2021 [...] as of this encounter (statuses as of 09/02/2024) Immunizations Name Administration Dates Next Due COVID-19 mRNA, LNP-s, No Pre serve, 2-Dose Series ([employer]) 10/20/2021,02/28/2021,02/07/2021 COVID-19, MRNA-LNP, 23-24, P F, 30 [...] No 02/09/2019 documented as of this encounter Patient Instructions * Patient Instructions* [...] symptoms or fever? No Have you had Guillain-Wirtz Syndrome (an illness that causes paralysis) within [...] this patient qualify for immunization through the [facility] program because he/she (check only one): Yes-is [...] - 09/02/2024 11:55 AM EDT Chair 8, Venofer 12/02. Pt presents to clinic via w/c [...] Care Team (Late st Contact Info) Description 09/09/2024 11:00 AM EDT Hem/Onc Treatment Hematology/Oncology Treatment, [place] [address] [address] [facility] [place] [phone] Ann-Marie, Chair 1 Hem Onc [place] [address] [facility] [place] [address] 09/12/2024 3:30 PM EDT Telemedicine Orthopaedics [facility] [address] [place] [address] Obdulio Valero MD [address] [place] [address] 09/15/2024 1:00 PM EDT PulmDiagnostic Pulmonary Function Lab, [facility] [address] [facility] [place], [place] [address] [place], [address] [facility] [place] [address] 09/16/2024 11:00 AM EDT Hem/Onc Treatment Hematology/Oncology Treatment, [place] [address] [facility] [place] [phone] Ann-Marie, Chair 2 Hem Onc [address] [place] [address] 09/27/2024 3:20 PM EDT Anticoagulation Pharmacy, [place] [address] [place] [address] [facility] [address] [place] [address] 09/27/2024 4:00 PM EDT Office Visit Family Practice, [place] [address] [facility] [place] [phone] Suman Simpson MD [address] [place] [address] 10/11/2024 3:00 PM EST Office Visit Pulmonary Medicine, [facility] [address] [facility] [place] [address] Bradley Yepez MD [address] [place] [address] 03/13/2025 3:00 PM EDT Office Visit Nephrology, [facility] [address] [facility] [place] [address] David Jaramillo MD [address] [facility] [place] [address] Health Maintenance Due Date Last Done Comments [...] ASSESSMENT COMPLETED IN PAST YEAR FOR COPD 09/02/2025 09/02/2024 DTap/Tdap Vaccines (4 - Td or Tdap) [...] influenza documented in this encounter Administered Medications Active Administered Medications - up to 3 most recent administrations Medication Order MAR Action Action Date Dose Rate Site diphenhydrAMINE (Benadryl) inj 50 mg 50 mg, IV Push, ONCE PRN Other, Hypersensitivity Reaction, Starting on Thu09/02/24 at 1112, Until 09/03/24 at 1111, For 24 hours EPINEPHrine 1 MG/ML inj 0.3 mg 0.3 mg, Intramuscular, ONCE PRN Other, Hypersensitivity Reaction or Anaphylaxis, Starting on Thu09/02/24 at 1112, Until 09/03/24 at 1111, For 24 hours hEParin 100 UNIT/ML Lock Flush inj 500 Units 500 Units (5 mL), IV Lock, PRN Other, IV Flush, Starting on Thu09/02/24 at 1112, Until 09/03/24 at 1111, For 24 hours, Do not flush if lock, PICC, or central line not in place; IV infusing or unable to flush. Hydrocortisone Sod Suc (PF) (Solu-Cortef) inj 100 mg 100 mg, IV Push, ONCE PRN Other, Hypersensitivity Reaction, Starting on Thu09/02/24 at 1112, Until 09/03/24 at 1111, For 24 hours NSS infusion 500 mL, Intravenous, at 50 mL/hr, CONTINUOUS, Starting on Thu09/02/24 at 1215, Until Thu09/02/24 at 2214 Start Infusion 09/02/2024 11:16 AM EDT 500 mL 50 mL/hr oxygen GAS Inhalation, OXYGEN, First dose on Thu09/02/24 at 1145, Until Discontinued, Device/Managed by: Low [...] Push, PRN Other, IV Flush, Starting on Thu09/02/24 at 1112, Until 09/03/24 at 1111, For 24 hours, Do not flush if [...] On Thu09/02/24 at 1245, Administer over 90 Minutes Start Infusion 09/02/2024 11:18 AM EDT 300 mg 180 mL/hr documented [...] Agents on File Name Relationship Healthcare Agent [facility] p Communication Latia Margaret Ignacioderrick Spouse Health Care Agent Care Teams Fence Supervisor Relationship Specialty Start Date End Date Suman Simpson MD [address] [place] [address] PCP - General 01/26/03 documented as of this encounter
--- OUTSIDE RECORDS SUMMARY | 2024-11-05 21:46 | External Medical Summary | Summary of Care ---
Author Name Unknown Organization [facility] Address [address] [place] [address] Phone [phone] Care Team Providers Care Data Analyst Name Role Phone Suman Simpson MD Primary Care Provider +1- [phone] Reason for Visit * Reason Onset Date Comments Medication Pre-auth 08/30/2024 Breo Ellipta 100-25MCG/ACT aerosol powder Encounter Details Date Type Department Care Team (Late st Contact Info) Description 08/30/2024 Telephone Pulmonary Medicine [place] Petersen [address] [place] [address] Bradley Yepez MD [address] [place] [address] Medication Pre-auth (Breo Ellipta 100-25MC... Allergies Active Allergy Reactions Criticality Noted Date Comments Metolazone 07/29/2021 Severe HYponatremia Morphine Sulfate Other (Please comment) 006 hallucinate Oxycodone Other (Please comment) 07/07/2006 Hallucinate Penicillins 07/21/2011 Hallucinate documented as of this encounter (statuses as of 08/31/2024) Medications Medication Sig Dispensed Refills Start Date [...] B, by GOLD 2017 classification ([facility]) Take 1 Capsule by mouth 3 times a day as needed for Cough. 30 Capsule 1 4 Active Vitamin D3 25 MCG (1000 UT) Oral Tablet (Vitamin D3) Take 1 Tablet by mouth in the morning. 30 Tablet 5 4 Active Breo Ellipta 100-25 MCG/ACT Inhalation Aerosol Powder Breath ActivatedIndication s:COPD, group B, by GOLD 2017 classification ([facility]) Inhale 1 Puff by mouth in the morning. 180 Each 3 4 Active Hospital, Clinic, or Other Facility Administered Medication Ordered Dose Route Frequency Start Date End Date Status Albuterol Sulfate (Proventil) (5 MG/ML) 0.5% *conc* inhalation solution 2.5 mgIndications:COPD, group B, by GOLD 2017 classification ([facility]),Dyspnea and respiratory abnormalities 2.5 mg NEBULIZER PRN 08/29/2024 08/29/2025 Active Albuterol Sulfate (Proventil) (2.5 MG/3ML) 0.083% inhalation solution 2.5 mgIndications:COPD, group B, by GOLD 2017 classification ([facility]),Dyspnea and respiratory abnormalities 2.5 mg NEBULIZER PRN 08/29/2024 08/29/2025 Active documented as of this encounter (statuses as of 08/31/2024) Active Problems Problem Noted Date Diagnosed Date [...] as of this encounter (statuses as of 08/31/2024) Resolved Problems Problem Noted Date Diagnosed Date Resolved Date Hypertensive chronic kidney disease with stage 5 chronic kidney disease or end stage renal disease 01/27/2023 08/24/2023 Atherosclerosis of [place] 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 09/13/2021 [...] as of this encounter (statuses as of 08/31/2024) Immunizations Name Administration Dates Next Due COVID-19 mRNA, LNP-s, No Pre serve, 2-Dose Series ([employer]) 10/20/2021,02/28/2021,02/07/2021 COVID-19, MRNA-LNP, 23-24, P F, 30 MCG/0.3 mL, 12 YRS AND ABOVE, IM ([employer] - [employer]-Comirnat) 10/13/2023 Covid-19, Mrna, Lnp-s, Pf, B ivalent, [...] encounter Miscellaneous Notes * Telephone Encounter - Sheila Cloud OSA - 08/31/2024 8:49 AM EDT Per review, patient filled Breo Ellipta on 08/29/2024, PA not needed. Sheila Cloud Medication [employer] Cell And Battery [employer]er [employer] [facility] ([facility]) P: [phone] F: [phone] 08/31/2024,8:50 AM * Telephone Encounter - Marysol James LPN - 08/30/2024 2:29 PM EDT Breo Ellipta 100-25MCG/ACT Aerosol Powder This medication needs a prior authorization. Thank you. documented in this encounter Plan of Treatment Upcoming Encounters Date Type Department Care Team (Late st Contact Info) Description 09/02/2024 11:00 AM EDT Hem/Onc Treatment Hematology/Oncology Treatment, [address] [phone] Ann-Marie, Chair 2 Hem Onc [address] [place] [address] 09/09/2024 11:00 AM EDT Hem/Onc Treatment Hematology/Oncology Treatment, [address] [phone] Ann-Marie, Chair 1 Hem Onc [address] [address] 09/12/2024 3:30 PM EDT Telemedicine Orthopaedics [facility] [address] [place] [address] Obdulio Valero MD [address] [place] [address] 09/15/2024 1:00 PM EDT PulmDiagnostic Pulmonary Function Lab, [facility] [address] [place] [address] [place], [address] [facility] [place] [address] 09/16/2024 11:00 AM EDT Hem/Onc Treatment Hematology/Oncology Treatment, [place] [address] [facility] [place] [phone] Ann-Marie, Chair 2 Hem Onc [facility] [address] [place], [place] [address] 09/27/2024 3:20 PM EDT Anticoagulation Pharmacy, [place] [address] [facility], [place] [address] [facility] [address] [facility], [place] [address] 09/27/2024 4:00 PM EDT Office Visit Family Practice, [place] [address] [facility] [phone] Suman Simpson MD [address] [facility], [place] [address] 10/11/2024 3:00 PM EST Office Visit Pulmonary Medicine, [facility] [address] [facility] [place], [place] [address] Bradley Yepez MD [address] [facility] [address] 03/13/2025 3:00 PM EDT Office Visit Nephrology, [facility] [address] [place], [place] [address] David Jaramillo MD 200 [facility] [address] [place], [place] [address] Health Maintenance Due Date Last Done Comments [...] Agents on File Name Relationship Healthcare Agent Relationsvt p Communication Latia Trejo Spouse Health Care Agent Care Teams Data Analyst Relationship Specialty Start Date End Date Suman Simpson MD [address] [place] [facility] [place] [address] PCP - General 01/26/03 documented as of this encounter
--- OUTSIDE RECORDS SUMMARY | 2024-11-05 21:46 | External Medical Summary | Summary of Care ---
Author Name Unknown Organization [facility] Address [address] [place] [address] Phone [phone] Care Team Providers Care Senior Project Manager Engineering Name Role Phone Suman Simpson MD Primary Care Provider +1- [phone] Reason for Visit * Reason Onset Date Comments Medication Pre-auth 08/30/2024 Breo Ellipta 100-25MCG/ACT aerosol powder Encounter Details Date Type Department Care Team (Late st Contact Info) Description 08/30/2024 Telephone Pulmonary Medicine Oscar Petersen [address] [place] [address] Bradley Yepez MD [address] [place] [address] Medication Pre-auth (Breo Ellipta 100-25MC... Allergies Active Allergy Reactions Criticality Noted Date Comments Metolazone 07/29/2021 Severe HYponatremia Morphine Sulfate Other (Please comment) 006 hallucinate Oxycodone Other (Please comment) 07/07/2006 Hallucinate Penicillins 07/21/2011 Hallucinate documented as of this encounter (statuses as of 08/30/2024) Medications Medication Sig Dispensed Refills Start Date [...] COPD, group B, by GOLD 2017 classification ([facility]) Take 1 Capsule by mouth 3 times a day as needed for Cough. 30 Capsule 1 4 Active Vitamin D3 25 MCG (1000 UT) Oral Tablet (Vitamin D3) Take 1 Tablet by mouth in the morning. 30 Tablet 5 4 Active Breo Ellipta 100-25 MCG/ACT Inhalation Aerosol Powder Breath ActivatedIndication s:COPD, group B, by GOLD 2017 classification ([facility]) Inhale 1 Puff by mouth in the morning. 180 Each 3 4 Active Hospital, Clinic, or Other Facility Administered Medication Ordered Dose Route Frequency Start Date End Date Status Albuterol Sulfate (Proventil) (5 MG/ML) 0.5% *conc* inhalation solution 2.5 mgIndications:COPD, group B, by GOLD 2017 classification ([facility]),Dyspnea and respiratory abnormalities 2.5 mg NEBULIZER PRN 08/29/2024 08/29/2025 Active Albuterol Sulfate (Proventil) (2.5 MG/3ML) 0.083% inhalation solution 2.5 mgIndications:COPD, group B, by GOLD 2017 classification ([facility]),Dyspnea and respiratory abnormalities 2.5 mg NEBULIZER PRN 08/29/2024 08/29/2025 Active documented as of this encounter (statuses as of 08/30/2024) Active Problems Problem Noted Date Diagnosed Date [...] as of this encounter (statuses as of 08/30/2024) Resolved Problems Problem Noted Date Diagnosed Date Resolved Date Hypertensive chronic kidney disease with stage 5 chronic kidney disease or end stage renal disease 01/27/2023 08/24/2023 Atherosclerosis of [place] 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 09/13/2021 [...] as of this encounter (statuses as of 08/30/2024) Immunizations Name Administration Dates Next Due COVID-19 mRNA, LNP-s, No Pre serve, 2-Dose Series (Renovagen) 10/20/2021,02/28/2021,02/07/2021 COVID-19, MRNA-LNP, 23-24, P F, 30 MCG/0.3 mL, 12 YRS AND ABOVE, IM (Absolute Antibody-Comirnat) 10/13/2023 Covid-19, Mrna, Lnp-s, Pf, B ivalent, [...] encounter Miscellaneous Notes * Telephone Encounter - Marysol James LPN - 08/30/2024 2:29 PM EDT Maximo Man 100-25MCG/ACT Aerosol Powder This medication needs a prior authorization. Thank you. documented in this encounter Plan of Treatment Upcoming Encounters Date Type Department Care Team (Late st Contact Info) Description 08/31/2024 3:00 PM EDT Nurse Only Ancillary Department, [place] [address] [place] [address] [place], Nurse [address] [place] [address] 09/02/2024 11:00 AM EDT Hem/Onc Treatment [address]ematology[address] [phone] Ann-Marie, Chair 2 Hem [address] [address] 09/09/2024 11:00 AM EDT Hem/Onc Treatment Hematology/[address], [address] [phone] Ann-Marie, Chair 1 Hem Onc [address] [address] 09/12/2024 3:30 PM EDT Telemedicine Orthopaedics [facility] 132 [facility] [place] [address] Obdulio Valero MD 132 [facility] [place] [address] 09/15/2024 1:00 PM EDT PulmDiagnostic Pulmonary Function Lab, [facility] [address] [place] [address] [address], [address] [place] [address] 09/16/2024 11:00 AM EDT Hem/Onc Treatment Hematology/Oncology [address], [address] [address] Ann-Marie, Chair 2 Hem Onc [facility] 200 [facility] [place], [place] [address] 09/27/2024 3:20 PM EDT Anticoagulation Pharmacy, [place] [address] [place] [address] [facility] [address] [place] [address] 09/27/2024 4:00 PM EDT Office Visit Family Practice, [place] [address] [place] [facility] [place] [address] Suman Simpson MD [address] [place] [address] 10/11/2024 3:00 PM EST Office Visit Pulmonary Medicine, [facility] [address] [place] [address] Bradley Yepez MD [address] [place] [facility] [place] [address] 03/13/2025 3:00 PM EDT Office Visit Nephrology, [facility]it Jacobsen [address] [place], [place] [address] David Jaramillo MD 200 [facility] [place] [address] Health Maintenance Due Date Last Done Comments [...] Agents on File Name Relationship Healthcare Agent [facility] p Communication Latia Trejo Spouse Health Care Agent Care Teams Senior Project Manager Engineering Relationship Specialty Start Date End Date Suman Simpson MD [address] [id number] PCP - General 01/26/03 documented as of this encounter
--- OUTSIDE RECORDS SUMMARY | 2024-11-05 21:46 | External Medical Summary | Summary of Care ---
Author Name Unknown Organization [facility] Address [address] [place] [address] Phone [phone] Care Team Providers Care Integration Software Developer Name Role Phone Suman Simpson MD Primary Care Provider +1- [phone] Reason for Visit * Reason Onset Date Comments Medication Management 08/24/2024 Venofer Encounter Details Date Type Department Care Team (Late st Contact Info) Description 08/24/2024 Telephone Hematology/Oncology Treatment, [place] [address] [facility] [place] [address] David Jaramillo MD [address] [place] [address] Medication Management (Venofer) Allergies Active Allergy Reactions [...] B, by GOLD 2017 classification ([facility]) Inhale 1 Puff by mouth in the morning. 180 Each 3 4 Active Gabapentin 100 MG Oral Capsule (Neurontin) Take 1 capsule by mouth twice per day. 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 ([facility]) Take 2 tablets in AM [...] B, by GOLD 2017 classification ([facility]) Take 1 Capsule by mouth [...] stage renal disease 01/27/2023 08/24/2023 Atherosclerosis of [place] 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 09/13/2021 [...] mRNA, LNP-s, No Pre serve, 2-Dose Series ([employer]) 10/20/2021,02/28/2021,02/07/2021 COVID-19, MRNA-LNP, 23-24, P F, 30 MCG/0.3 mL, 12 YRS AND ABOVE, IM (EatingWell-Comirnat) 10/13/2023 Covid-19, Mrna, Lnp-s, Pf, B ivalent, 30 Mcg, IM, 12 yrs and above ([employer]) 09/12/2022 HEPATITIS B VACCINE, RECOMB, 20 MCG/ML, [...] encounter Miscellaneous Notes * Telephone Encounter - Lakeisha Coulter RN - 08/25/2024 7:27 AM EDT [place] is signed. Scheduling: please call patient to schedule 2 hour appt "venofer 12/02" (Dr David Jaramillo). Thanks! Patient will need venofer once a week x3. * Telephone Encounter - Evette Glover LPN - 08/24/2024 2:56 PM EDT Order received for Venofer [place] plan built and routed to provider No prior authorization required Awaiting provider signature before scheduling patient documented in this encounter Plan of Treatment Upcoming Encounters Date Type Department Care Team (Late st Contact Info) Description 08/29/2024 11:20 AM EDT Office Visit Pulmonary Medicine, [facility] [address] [facility] [place] [address] Bradley Yepez MD [address] [place] [address] 08/31/2024 3:00 PM EDT Nurse Only Ancillary Department, [place] [address] [place] [address] [place], Nurse [address] [place] [address] 09/12/2024 3:30 PM EDT Telemedicine Orthopaedics [facility] [address] Obdulio Valero MD [address] [place] [address] 09/27/2024 3:20 PM EDT Anticoagulation Pharmacy, [place] [address] [place] [address] [facility] [address] [place] [address] 09/27/2024 4:00 PM EDT Office Visit Family Practice, [place] [address] [place] [phone] Suman Simpson MD [address] [place] [address] 03/13/2025 3:00 PM EDT Office Visit Nephrology, [facility] [address] [place] [address] David Jaramillo MD [address] [place] [address] Health Maintenance Due Date Last Done Comments [...] Agents on File Name Relationship Healthcare Agent [facility] Communication Latia Robles Ignacioderrick Spouse Health Care Agent Care Teams Integration Software Developer Relationship Specialty Start Date End Date Suman Simpson MD [address] [place] [address] PCP - General 01/26/03 documented as of this encounter
--- OUTSIDE RECORDS SUMMARY | 2024-11-05 21:46 | External Medical Summary | Summary of Care ---
Author Name Unknown Organization [facility] Address [address] [place] [address] Phone [phone] Care Team Providers Care Thread Spinner Name Role Phone Randy Garg MD Primary Care Provider +1- [phone] Reason for Visit * Reason Comments eRx-Medication Refill Encounter Details Date Type Department Care Team (Late st Contact Info) Description 09/02/2024 Refill [facility] [address] [place] [address] Randy Garg MD [address] [place] [address] HTN, goal below 140/90; Type 2 diabetes mellitus with hemoglobin A1c goal of less than 8.0% ([facility]) Allergies Active Allergy Reactions Criticality Noted Date Comments Metolazone 07/29/2021 Severe HYponatremia Morphine Sulfate Other (Please comment) 006 hallucinate Oxycodone Other (Please comment) 07/07/2006 Hallucinate Penicillins 07/21/2011 Hallucinate documented as of this encounter (statuses as of 09/05/2024) Medications Medication Sig Dispensed Refills Start Date [...] hemoglobin A1c goal of less than 8.0% ([facility]) Use up to 4 times a [...] :COPD, group B, by GOLD 2017 classification ([facility]) Take 1 Capsule by mouth 3 times a day as needed for Cough. 30 Capsule 1 08/23/20 24 Active Vitamin D3 25 MCG (1000 UT) Oral Tablet (Vitamin D3) Take 1 Tablet by mouth in the morning. 30 Tablet 5 08/24/20 24 Active Breo Ellipta 100-25 MCG/ACT Inhalation Aerosol Powder Breath ActivatedIndicatio ns:COPD, group B, by GOLD 2017 classification ([facility]) Inhale 1 Puff by mouth in [...] hemoglobin A1c goal of less than 8.0% ([facility]) Take 1 Tablet by mouth in the morning. 90 Tablet 1 09/05/20 24 Active glipiZIDE 5 MG Oral Tablet (Glucotrol)Indicat ions:Type 2 diabetes mellitus with hemoglobin A1c goal of less than 8.0% ([facility]) Take 1 Tablet by mouth in the morning. 90 Tablet 3 03/07/20 24 024 Discontinued Metoprolol Succinate ER 100 MG Oral Tablet Extended Release 24 Hour (toPROL XL)Indications:HTN , goal below 140/90 TAKE ONE TABLET BY MOUTH EVERY MORNING AND AT BEDTIME 180 Tablet 3 03/07/20 24 024 Discontinued Hospital, Clinic, or Other Facility Administered Medication Ordered Dose Route Frequency Start Date End Date Status Albuterol Sulfate (Proventil) (5 MG/ML) 0.5% *conc* inhalation solution 2.5 mgIndications:COPD, group B, by GOLD 2017 classification ([facility]),Dyspnea and respiratory abnormalities 2.5 mg NEBULIZER PRN 08/29/2024 08/29/2025 Active Albuterol Sulfate (Proventil) (2.5 MG/3ML) 0.083% inhalation solution 2.5 mgIndications:COPD, group B, by GOLD 2017 classification ([facility]),Dyspnea and respiratory abnormalities 2.5 mg NEBULIZER PRN 08/29/2024 08/29/2025 Active documented as of this encounter (statuses as of 09/05/2024) Active Problems Problem Noted Date Diagnosed Date [...] as of this encounter (statuses as of 09/05/2024) Resolved Problems Problem Noted Date Diagnosed Date [...] as of this encounter (statuses as of 09/05/2024) Immunizations Name Administration Dates Next Due COVID-19 mRNA, LNP-s, No Pre serve, 2-Dose Series (Newtron) 10/20/2021,02/28/2021,02/07/2021 COVID-19, MRNA-LNP, 23-24, P F, 30 MCG/0.3 mL, 12 YRS AND ABOVE, IM ([facility]) 10/13/2023 Covid-19, Mrna, Lnp-s, Pf, B ivalent, 30 Mcg, IM, 12 yrs and above ([employer]) 09/12/2022 HEPATITIS B VACCINE, RECOMB, 20 MCG/ML, [...] encounter Miscellaneous Notes * Telephone Encounter - Ashley Dela Cruz RPh - 09/05/2024 9:22 AM EDTSigned Prescriptions: Disp Refills Metoprolol Succinate ER 100 MG Oral Tablet*180 Ta*1 Sig: TAKE ONE TABLET BY MOUTH EVERY MORNING AND AT BEDTIME Authorizing Provider: RANDY GARG Ordering User: ASHLEY DELA CRUZ glipiZIDE 5 MG Oral Tablet (Glucotrol) 90 Tab*1 Sig: Take 1 Tablet by mouth in the morning. Authorizing Provider: RANDY GARG Ordering User : ASHLEY DELA CRUZ * Telephone Encounter - Ashley Dela Cruz RPh - 09/05/2024 9:22 AM EDT Reissuing balance of remaining refills to pharmacy due to prescription under insurance. Thank you, Ashley Dela Cruz, PharmD. Clinical Pharmacist [facility] 09/05/2024, 9:22 AM documented in this encounter Plan of Treatment Upcoming Encounters Date Type Department Care Team (Late st Contact Info) Description 09/09/2024 11:00 AM EDT Hem/Onc Treatment Hematology/Oncology Treatment, [address] [address] [place], Chair 1 Hem Onc [place] [address] [place] [address] 09/12/2024 3:30 PM EDT Telemedicine Orthopaedics [facility] 132 [facility] [place] [address] Obdulio Valero MD 132 [facility] [place] [address] 09/15/2024 1:00 PM EDT PulmDiagnostic Pulmonary Function Lab, [facility] 132 [facility] [place] [address] [address], [address] [facility] [place] [address] 09/16/2024 11:00 AM EDT Hem/Onc Treatment Hematology/Oncology Treatment, [place] [address] [place] [phone] [place], Chair 2 Hem Onc [address] [place] [address] 09/27/2024 3:20 PM EDT Anticoagulation Pharmacy, [place] [address] [address] [facility] [address] [place] [address] 09/27/2024 4:00 PM EDT Office Visit Family [facility], [place] [address] [phone] Randy Garg MD [address] [place] [facility] [place] [address] 10/11/2024 3:00 PM EST Office Visit Pulmonary Medicine, [facility] 132 [facility] [place] [address] Bradley Yepez MD [address] [place] [address] 03/13/2025 3:00 PM EDT Office Visit Nephrology, [facility] [address] [place] [address] David Jaramillo MD [address] [facility] [place], [place] [address] Health Maintenance Due Date Last Done Comments [...] as of this encounter Visit Diagnoses Diagnosis HTN, goal below 140/90 Unspecified essential hypertension Type 2 diabetes mellitus with hemoglobin A1c goal of less than 8.0% (HCC) documented in this encounter Advance Directives [...] Agents on File Name Relationship Healthcare Agent Relationsmd p Communication Latia Robles Ficlesliederrick Spouse Health Care Agent Care Teams Thread Spinner Relationship Specialty Start Date End Date Randy Garg MD [address] [place] [address] PCP - General 01/26/03 documented as of this encounter
--- OUTSIDE RECORDS SUMMARY | 2024-11-05 21:46 | External Medical Summary | Summary of Care ---
Author Name Unknown Organization [facility] Address [address] [place] [address] Phone [phone] Care Team Providers Care Developer Analyst Name Role Phone Suman Simpson MD Primary Care Provider +1- [phone] Reason for Visit * Reason Onset Date Comments Test Results 08/24/2024 Encounter Details Date Type Department Care Team (Late st Contact Info) Description 08/24/2024 Telephone [facility] [address] [place] [address] David Jaramillo MD 200 [place] [address] Test Results Allergies Active Allergy Reactions Criticality [...] s:COPD, group B, by GOLD 2017 classification ([facility]) Inhale 1 Puff by mouth in the morning. 180 Each 3 4 Active Gabapentin 100 MG Oral Capsule (Neurontin) Take 1 capsule by mouth twice per day. 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) Take 2 tablets in AM and 2 [...] COPD, group B, by GOLD 2017 classification ([facility]) Take 1 Capsule by mouth 3 times [...] stage renal disease 01/27/2023 08/24/2023 Atherosclerosis of [place] 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 09/13/2021 [...] mRNA, LNP-s, No Pre serve, 2-Dose Series ([employer]) 10/20/2021,02/28/2021,02/07/2021 COVID-19, MRNA-LNP, 23-24, P F, 30 MCG/0.3 mL, 12 YRS AND ABOVE, IM ([facility] 10/13/2023 Covid-19, Mrna, Lnp-s, Pf, B ivalent, 30 Mcg, IM, 12 yrs and above ([employer]) 09/12/2022 HEPATITIS B VACCINE, RECOMB, 20 MCG/ML, [...] encounter Miscellaneous Notes * Telephone Encounter - Barbara Peña LPN - 08/29/2024 8:22 AM EDT Pt is scheduled in [facility] for 09/02/24 * Telephone Encounter - Barbara Peña LPN - 08/24/2024 2:41 PM EDT Supportive care plan has been placed along with Follow up labs placed in [facility] lab system As above pt does note bilateral lower calf edema Denies SOB No pain with dorsiflexion * Telephone Encounter - Barbara Peña LPN - 08/24/2024 1:36 PM EDT Extensive TE Pt is made of lab results Is advised kidney labs are stable but Vitamin D is low Pt will need to start Vitamin D supplement 1.000 units 1 capsule daily Pt requested this to be sent to [facility] on [address] Pt does note lower calf edema bilaterally Pt is advised Hgb is dropping and iron is low Dr Jaramillo recommends Venefor infusions weekly X 3 weeks May need pre certification on this but Nurse's will start Supportive Care plan once MD has returned to nursing MD please sign off Vitamin D Rx and return to Nursing for supportive care paln for Venofer and lab order placement * Telephone Encounter - Barbara Peña LPN - 08/24/2024 1:32 PM EDT ----- Message from David Jaramillo MD sent at 08/24/2024 11:07 AM EDT ----- Kidney function abnormal but stable and similar to previous readings. Ask if any edema. Vitamin-D is low and will correct at Hemoglobin seems to be dropping with very low iron. Given CKD 4 oral iron may not work---he needs IV iron. Will do Venofer 300 mg weekly x3. Repeat renal panel CBC iron screen in about 6 weeks documented in this encounter Plan of Treatment Upcoming Encounters Date Type Department Care Team (Late st Contact Info) Description 08/29/2024 11:20 AM EDT Office Visit Pulmonary Medicine, [facility] 132 [facility] [place] [address] Bradley Yepez MD [address] [place] [address] 08/31/2024 3:00 PM EDT Nurse Only Ancillary Department, [place] [address] [place], [place] [address] [address] [place], Nurse [address] [facility] [address] 09/02/2024 11:00 AM EDT Hem/Onc Treatment Hematology/Oncology Treatment, [place] [address] [place] [phone] Ann-Marie, Chair 2 Hem Onc Scen[address] 200 [facility], [place] [address] 09/09/2024 11:00 AM EDT Hem/Onc Treatment Hematology/Oncology Treatment, [place] [address] [facility], [place] [phone] Ann-Marie, Chair 1 Hem Onc [address] [facility] [place], [place] [address] 09/12/2024 3:30 PM EDT Telemedicine Orthopaedics [facility] [address] [place] [address] Obdulio Valero MD [address] [place] [address] 09/16/2024 11:00 AM EDT Hem/Onc Treatment Hematology/Oncology Treatment, [address], [place] [phone] Ann[place]Marie, Chair 2 Hem Onc [address] [facility] [place], [place] [address] 09/27/2024 3:20 PM EDT Anticoagulation Pharmacy, [place] [address] [place] [address] [facility] [address] [place] [address] 09/27/2024 4:00 PM EDT Office Visit Family [facility], [place] [address] [place] [phone] Suman Simpson MD [address] [place] [address] 03/13/2025 3:00 PM EDT Office Visit Nephrology, [facility] [address] [place], [place] [address] David Jaramillo MD [address] [place] [address] Scheduled Orders Name Type Priority Associated Diagnoses Orde r Schedule CBC WITH WBC DIFFERENTIAL Lab Routine Nephrotic range proteinuria End stage renal disease (HCC) 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) Expected: 08/24/2024 (Approximate), Expires: 08/24/2025 IRON SCREEN, INCLUDING TIBC Lab Routine Nephrotic range proteinuria End stage renal disease (HCC) 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) Expected: 08/24/2024 (Approximate), Expires: 08/24/2025 Health Maintenance Due Date Last Done Comments [...] as of this encounter Visit Diagnoses Diagnosis Nephrotic range proteinuria- Primary Proteinuria End stage renal disease (HCC) End stage renal disease 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
--- OUTSIDE RECORDS SUMMARY | 2024-11-05 21:47 | External Medical Summary | Summary of Care ---
Author Name Unknown Organization [facility] Address [address] [place] [address] Phone [phone] Care Team Providers Care Precision Layout Worker Name Role Phone Suman Simpson MD Primary Care Provider +1- [phone] Reason for Visit * Reason Comments Outpatient Testing Encounter Details Date Type Department Care Team (Late st Contact Info) Description 08/23/2024 11:10 AM EDT Laboratory Laboratory, [place] [address] [place] [address] [place], Laboratory [address] [place] [address] Atrial fibrillation, unspecified type ([facility]); Anticoagulation management encounter; CKD (chronic kidney disease) stage 4, GFR 15-29 ml/min ([facility]); MyCode Research Other*[id number]; 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 ([facility]); COPD, group B, by GOLD 2017 classification ([facility]); GUALLPA (dyspnea on exertion) Allergies Active Allergy Reactions Criticality Noted Date Comments Metolazone 07/29/2021 Severe HYponatremia Morphine Sulfate Other (Please comment) 006 hallucinate Oxycodone Other (Please comment) 07/07/2006 Hallucinate Penicillins 07/21/2011 Hallucinate documented as of this encounter (statuses as of 08/23/2024) Medications Medication Sig Dispensed Refills Start Date [...] s:COPD, group B, by GOLD 2017 classification ([facility] [...] chronic kidney disease not on chronic dialysis ([facility]) Take 2 tablets in AM and 2 [...] dissolve on tongue. 20 Tablet 4 Active documented as of this encounter (statuses as of 08/23/2024) Active Problems Problem Noted Date Diagnosed Date Type 2 diabetes mellitus with foot ulcer [...] as of this encounter (statuses as of 08/23/2024) Resolved Problems Problem Noted Date Diagnosed Date Resolved Date Hypertensive chronic kidney disease with stage 5 chronic kidney disease or end stage renal disease 01/27/2023 08/24/2023 Atherosclerosis of [place] 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 09/13/2021 [...] as of this encounter (statuses as of 08/23/2024) Immunizations Name Administration Dates Next Due COVID-19 mRNA, LNP-s, No Pre serve, 2-Dose Series ([employer]) 10/20/2021,02/28/2021,02/07/2021 COVID-19, MRNA-LNP, 23-24, P F, 30 MCG/0.3 mL, 12 YRS AND ABOVE, IM ([employer]-Comirnat) 10/13/2023 Covid-19, Mrna, Lnp-s, Pf, B ivalent, 30 Mcg, IM, 12 yrs and above ([employer]) 09/12/2022 HEPATITIS B VACCINE, RECOMB, 20 MCG/ML, [...] Team (Late st Contact Info) Description 08/24/2024 6:00 AM EDT [facility], [place] [address] [address] [facility] [address] [address] 08/29/2024 11:20 AM EDT Office Visit Pulmonary Medicine, [facility] [address] [facility] [place] [address] Bradley Yepez MD [address] [place] [address] 08/31/2024 3:00 PM EDT Nurse Only Ancillary Department, [id number] [place], Nurse [address] [place] [address] 09/12/2024 3:30 PM EDT Telemedicine Orthopaedics [facility] [address] [place] [address] Obdulio Valero MD [address] [place] [address] 09/27/2024 4:00 PM EDT Office Visit [facility], [place] [address] [place] [facility] [phone] Suman Simpson MD [address] [place] [address] 03/13/2025 3:00 PM EDT Office Visit Nephrology, [facility] [address] [place] [address] David Jaramillo MD [address] [place] [address] Pending Results Name Type Priority Associated Diagnoses Date /Time PT INR Lab Routine Atrial fibrillation, unspecified type (HCC) Anticoagulation management encounter 08/23/2024 11:37 AM EDT CBC WITH WBC DIFFERENTIAL Lab Routine CKD (chronic kidney disease) stage 4, GFR 15-29 ml/min ([facility]) 08/23/2024 11:37 AM EDT PTH Lab Routine CKD (chronic kidney disease) stage 4, GFR 15-29 ml/min ([facility]) 08/23/2024 11:37 AM EDT MAGNESIUM Lab Routine CKD (chronic kidney disease) stage 4, GFR 15-29 ml/min ([facility]) 08/23/2024 11:37 AM EDT 25-HYDROXY VITAMIN D Lab Routine CKD (chronic kidney disease) stage 4, GFR 15-29 ml/min ([facility]) 08/23/2024 11:37 AM EDT MYCODE SUBSEQUENT ADULT Lab Routine MyCode Research Other*[id number] 08/23/2024 11:37 AM EDT COMPREHENSIVE METABOLIC PANEL Lab Routine 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 ([facility]) 08/23/2024 11:37 AM EDT CBC Lab Routine CKD (chronic kidney disease) stage 4, GFR 15-29 ml/min ([facility]) 08/23/2024 11:37 AM EDT DIFFERENTIAL, AUTOMATED Lab Routine CKD (chronic kidney disease) stage 4, GFR 15-29 ml/min ([facility]) 08/23/2024 11:37 AM EDT MYCODE SST1 Lab Routine MyCode Research Other*[id number] 08/23/2024 11:37 AM EDT MYCODE SST2 Lab Routine MyCode Research Other*[id number] 08/23/2024 11:37 AM EDT PHOSPHORUS Lab Routine CKD (chronic kidney disease) stage 4, GFR 15-29 ml/min ([facility]) 08/23/2024 11:37 AM EDT PROTEIN/ CREATININE RATIO, URINE Lab Routine CKD (chronic kidney disease) stage 4, GFR 15-29 ml/min ([facility]) 08/23/2024 11:43 AM EDT Health Maintenance Due Date Last [...] as of this encounter Visit Diagnoses Diagnosis Atrial fibrillation, unspecified type (HCC) Anticoagulation management encounter Encounter for therapeutic drug monitoring CKD (chronic kidney disease) stage 4, GFR 15-29 ml/min ([facility]) Chronic kidney disease, Stage IV (severe) MyCode Research Other*[id number] 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
--- OUTSIDE RECORDS SUMMARY | 2024-11-05 21:47 | External Medical Summary | Summary of Care ---
Author Name Unknown Organization [facility] Address [address] [place] [address] Phone [phone] Care Team Providers Care Superintendent Water And [employer]er Systems Name Role Phone Suman Simpson MD Primary Care Provider +1- [phone] Reason for Referral * Evaluate & Treat - Unlimited Visits (Within 3 days (urgent)) - Authorized Specialty Diagnoses / Procedures Referred By Contac t Referred To Contact Pulmonary Diseases / Pulmonary Diagnoses COPD, group B, by GOLD 2017 classification (HCC) LOTT (dyspnea on exertion) Greg Rodrigues MD [address] [place] [address] Referral ID Status Reason Start Date Expiration Date Visits Requested Visits Authorized [id number] Authorized Specialty Services Required 08/23/2024 999 999 Question Answer Referral Priority Within 3 days (urgent) Where should this appointment be scheduled? [facility] Reason for Referral? Other Comments Hemoptysis, chronic lott and SOB, COPD Reason for Visit * Reason Comments Acute Patient is here toda y due to SOB, cough, nausea, weakness and fever.Patient was prescribed steroids on 08/10 which did not help. Patient reports coughing up a bit of blood this morning. Patient states he is feeling better than he was when he got up this morning. 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 180 Each 4 Active Gabapentin 100 MG Oral Capsule [...] :COPD, group B, by GOLD 2017 classification (HCC) Take 1 Capsule by mouth 3 times a day as needed for Cough. 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 Do all this for 10 days. 20 Capsule 4 08/23/20 24 Discontinu ed(Medicat ion List Clean Up) Cefdinir 300 MG Oral Capsule (Omnicef)Indicatio ns:COPD exacerbation (HCC) Take 1 Capsule by mouth daily for 7 days. 7 Capsule 4 08/23/20 24 Discontinu ed(Medicat ion List Clean Up) predniSONE 20 MG Oral Tablet (Deltasone)Indicat ions:COPD exacerbation (HCC) Take 2 Tablets by mouth in the morning for 5 days. 10 Tablet 4 08/23/20 24 Discontinu ed(Medicat ion List Clean Up) documented as of this encounter (statuses as [...] saturation below 88%. Does not wear CPAP LOTT (dyspnea on exertion) 06/24/2010 Overview: ICD-10 update [...] mRNA, LNP-s, No Pre serve, 2-Dose Series (Bookmycab) 10/20/2021,02/28/2021,02/07/2021 COVID-19, MRNA-LNP, 23-24, P F, 30 MCG/0.3 mL, 12 YRS AND ABOVE, IM ([employer] Document [employer]) 10/13/2023 Covid-19, Mrna, Lnp-s, Pf, B ivalent, 30 Mcg, IM, 12 yrs and above ([employer]) 09/12/2022 HEPATITIS B VACCINE, RECOMB, 20 MCG/ML, [...] Sign Reading Time Taken Comments Blood Pressure 132/62 08/23/2024 10:04 AM EDT Pulse 68 08/23/2024 10:04 AM EDT Temperature 36.3 C (97.3 F) 08/23/2024 10:04 AM E DT Respiratory Rate 16 08/23/2024 10:04 AM EDT Oxygen Saturation 95% 08/23/2024 10:04 AM EDT Inhaled Oxygen Concentration - - Weight 94.5 kg (208 lb 4.8 oz) 08/23/2024 10:04 AM EDT Height 175.3 cm (5' 9") 08/23/2024 10:04 AM EDT Body Mass Index 30.76 08/23/2024 10:04 AM EDT documented in this encounter Functional [...] as of this encounter Progress Notes * Greg Rodrigues MD - 08/23/2024 9:59 AM EDT Images from the original note were not included. Assessment and Plan Ongoing symptoms of fatigue, lethargy, shortness of breath now with hemoptysis despite treatment ofpresumed COPD exacerbation. We will get a chest x-ray for further evaluation and lab work as below to rule out worsening renal function. I did encourage him to be evaluated through pulmonary on a more urgent basis given worsening shortness of breath and LOTT symptoms along with hemoptysis. Patient is anticoagulated on warfarin with most recent INR at goal range. DVT PE seems less likely in this setting. This is likely cause of hemoptysis. Await imaging to determine next steps in care. 1. COPD, group B, by GOLD 2017 classification ([facility]) - CBC WITH WBC DIFFERENTIAL; Future - XR CHEST 2 VIEWS - PULMONARY REFERRAL OP 2. LOTT (dyspnea on exertion) - CBC WITH WBC DIFFERENTIAL; Future - XR CHEST 2 VIEWS - PULMONARY REFERRAL OP 3. 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 Atrial fibrillation, unspecified type ([facility]) - PT INR; Future 5. Hemoptysis Wrap-Up Follow up as needed. History of Present Illness The patient is an 84-year-old male with past medical history of type 2 diabetes, COPD group B by gold 2017 classification, dyspnea on exertion, CKD stage 5 not on dialysis, pulmonary hypertension, atrial fibrillation who presents for follow up. Patient seen on 08/10/2024 for shortness of breath and diagnosed with COPD exacerbation. Treated with antibiotic and steroid. No significant improvement in symptoms since that time. Patient completed the course of antibiotics and steroids and did not feel significant improvement in symptoms. He continues to have significant fatigue and lethargy associated with his chronic shortness of breath and decreased exercise capacity. He was not feel he was getting significant improvement from the inhalers that he was prescribed by Pulmonology via video visit 1 year ago. Per review of the Pulmonology office visit 1 year ago patient declined a number of recommended further studies to help determine if further treatment may be warranted for his dyspnea on exertion/COPD. Physical Exam Vitals: 08/23/24 1004 Temp: 36.3 C (97.3 F) Pulse: 68 Resp: 16 SpO2: 95% BP: 132/62 BMI: 30.75 Physical Exam Physical Exam Vitals reviewed. Constitutional: Comments: Using wheelchair for mobility. Cardiovascular: Rate and Rhythm: Normal rate and regular rhythm. Heart sounds: No murmur heard. Pulmonary: Comments: Diminished breath sounds in all 4 quadrants. Musculoskeletal: Cervical back: Neck supple. Lymphadenopathy: Cervical: No cervical adenopathy. Neurological: General: No focal deficit present. Psychiatric: Mood and Affect: Mood normal. Behavior: Behavior normal. This note has been completed in part utilizing Fluency Speech Voice Recognition Software. Due to technical limitations of the software, grammatical errors, random word insertions, prounoun errors, and incomplete sentences may occur. Any formal questions or concerns about the content, text, or information contained within the body of this dictation should be directly addressed to the provider for clarification. documented in this encounter Nursing Notes * Linda Yousif MED ASSIST - 08/23/2024 10:11 AM EDT The patient has been properly identified by confirmation of name and date of . Chief Complaint Patient presents with Acute Patient is here today due to SOB, cough, nausea, weakness and fever. Patient was prescribed steroids on 08/10 which did not help. Patient reports coughing up a bit of blood this morning. Patient states he is feeling better than he was when he got up this morning. documented in this encounter Plan of Treatment Upcoming Encounters Date Type Department Care Team (Late st Contact Info) Description 08/24/2024 6:00 AM EDT Anticoagulation Pharmacy, [address] [address] [place], [facility] [address] [place] [address] 08/29/2024 11:20 AM EDT Office Visit Pulmonary Medicine, [facility] [address] [facility] [place] [address] Bradley Yepez MD [address] [place] [address] 08/31/2024 3:00 PM EDT Nurse Only Ancillary Department, [address] [address] [place], Nurse [address] [place] [address] 09/12/2024 3:30 PM EDT Telemedicine Orthopaedics [facility] [address] [place] [address] Obdulio Valero MD [address] [place] [address] 09/27/2024 4:00 PM EDT Office Visit [facility] [address] [place] [id number] Suman Simpson MD [address] [place] [address] 03/13/2025 3:00 PM EDT Office Visit Nephrology, [facility] [address] [facility] [place] [address] David Jaramillo MD [address] [facility] [place] [address] Pending Results Name Type Priority Associated Diagnoses Date /Time COMPREHENSIVE METABOLIC PANEL Lab Routine 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) 08/23/2024 11:37 AM EDT XR CHEST 2 VIEWS Medical Imaging Routine COPD, group B, by GOLD 2017 classification ([facility]) LOTT (dyspnea on exertion) 08/23/2024 1:10 PM EDT Scheduled Orders Name Type Priority Associated Diagnoses Orde r Schedule COMPREHENSIVE METABOLIC PANEL Lab Routine 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) Expected: 08/23/2024 (Approximate), Expires: 08/23/2025 Scheduled Referrals Name Type Priority Associated Diagnoses Orde r Schedule PULMONARY REFERRAL OP Referral Within 3 days (urgent) COPD, group B, by GOLD 2017 classification ([facility]) LOTT (dyspnea on exertion) Ordered: 08/23/2024 Health Maintenance Due Date Last Done Comments [...] B, by GOLD 2017 classification (HCC)- Primary LOTT (dyspnea on exertion) Other dyspnea and respiratory abnormality 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
--- OUTSIDE RECORDS SUMMARY | 2024-11-05 21:47 | External Medical Summary | Summary of Care ---
Author Name Unknown Organization [facility] Address [address] [place] [address] Phone [phone] Care Team Providers Care Supervisor Shaving And Splitting Name Role Phone Suman Simpson MD Primary Care Provider +1- [phone] Reason for Visit * Reason Comments Outpatient Testing Encounter Details Date Type Department Care Team (Late st Contact Info) Description 08/23/2024 11:10 AM EDT Laboratory Laboratory, [place] [address] [place] [address] [place], Laboratory [address] [place] [address] Atrial fibrillation, unspecified type ([facility]); Anticoagulation management encounter; CKD (chronic kidney disease) stage 4, GFR 15-29 ml/min ([facility]); MyCode Research Other*[id number]; 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 180 Each 3 4 Active Gabapentin 100 MG Oral Capsule (Neurontin) Take 1 capsule by mouth twice per day. 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 ([facility]) Take 2 tablets in AM [...] stage renal disease 01/27/2023 08/24/2023 Atherosclerosis of [place] 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 09/13/2021 [...] mRNA, LNP-s, No Pre serve, 2-Dose Series ([employer]) 10/20/2021,02/28/2021,02/07/2021 COVID-19, MRNA-LNP, 23-24, P F, 30 MCG/0.3 mL, 12 YRS AND ABOVE, IM ([employer]-Comirnat) 10/13/2023 Covid-19, Mrna, Lnp-s, Pf, B ivalent, 30 Mcg, IM, 12 yrs and above ([employer]) 09/12/2022 HEPATITIS B VACCINE, RECOMB, 20 MCG/ML, [...] Description 08/24/2024 6:00 AM EDT [facility] Pharmacy, [place] [address] [address] [facility] [address] [facility] [address] [facility] [address] 08/29/2024 11:20 AM EDT Office Visit Pulmonary Medicine, [facility] [address] [facility] [place] [address] Bradley Yepez MD [address] [place] [address] 08/31/2024 3:00 PM EDT Nurse Only Ancillary Department, [address] [id number] [place], Nurse [address] [place] [address] 09/12/2024 3:30 PM EDT Telemedicine Orthopaedics [facility] [address] [place] [address] Obdulio Valero MD [address] [place] [address] 09/27/2024 4:00 PM EDT Office Visit [facility], [place] [address] [place] [facility] [place] [phone] Suman Simpson MD [address] [place] [address] 03/13/2025 3:00 PM EDT Office Visit Nephrology, [facility] [address] [facility] [place] [address] David Jaramillo MD [address] [facility] [place] [address] Pending Results Name Type Priority Associated Diagnoses Date /Time PT INR Lab Routine Atrial fibrillation, unspecified type (HCC) Anticoagulation management encounter 08/23/2024 11:37 AM EDT CBC WITH WBC DIFFERENTIAL Lab Routine CKD (chronic kidney disease) stage 4, GFR 15-29 ml/min ([facility]) 08/23/2024 11:37 AM EDT PTH Lab Routine CKD (chronic kidney disease) stage 4, GFR 15-29 ml/min ([facility]) 08/23/2024 11:37 AM EDT MAGNESIUM Lab Routine CKD (chronic kidney disease) stage 4, GFR 15-29 ml/min ([facility]) 08/23/2024 11:37 AM EDT 25-HYDROXY VITAMIN D Lab Routine CKD (chronic kidney disease) stage 4, GFR 15-29 ml/min ([facility]) 08/23/2024 11:37 AM EDT MYCODE SUBSEQUENT ADULT Lab Routine MyCode Research Other*[id number] 08/23/2024 11:37 AM EDT COMPREHENSIVE METABOLIC PANEL Lab Routine 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 ([facility]) 08/23/2024 11:37 AM EDT CBC Lab Routine CKD (chronic kidney disease) stage 4, GFR 15-29 ml/min ([facility]) 08/23/2024 11:37 AM EDT DIFFERENTIAL, AUTOMATED Lab Routine CKD (chronic kidney disease) stage 4, GFR 15-29 ml/min ([facility]) 08/23/2024 11:37 AM EDT MYCODE SST1 Lab Routine MyCode Research Other*[id number] 08/23/2024 11:37 AM EDT MYCODE SST2 Lab Routine MyCode Research Other*[id number] 08/23/2024 11:37 AM EDT PHOSPHORUS Lab Routine CKD (chronic kidney disease) stage 4, GFR 15-29 ml/min ([facility]) 08/23/2024 11:37 AM EDT PROTEIN/ CREATININE RATIO, URINE Lab Routine CKD (chronic kidney disease) stage 4, GFR 15-29 ml/min ([facility]) 08/23/2024 11:43 AM EDT Health Maintenance Due [...] kidney disease) stage 4, GFR 15-29 ml/min ([facility]) Chronic kidney disease, Stage IV (severe) MyCode Research Other*[id number] 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
--- OUTSIDE RECORDS SUMMARY | 2024-11-05 21:47 | External Medical Summary ---
Author Name Unknown Address Unknown Organization K01:[facility] [place] - [address] [place] [address] Laboratory Report Ordering Provider Test Date Status STEVE ALTMANRAVI 08/23/2024 11:37:09 Final Observation Date Value Abnormality Reference (Units ) Status Parathyrin.intact [Mass/volume] in Serum or Plasma 08/23/2024 11:37:09 178 Above high normal 15-65 (pg/mL) Final Performing Location [facility] [place] - [address] [place] [address]
--- OUTSIDE RECORDS SUMMARY | 2024-11-05 21:47 | External Medical Summary ---
Author Name Unknown Address Unknown Organization [id number]:[facility] [place] [address] [place] [address] Laboratory Report Ordering Provider Test Date Status SALUDSHALINIKenia 08/23/2024 11:37:09 Final Warfarin Therapy
INR: 2 .0-3.0 conventional anticoagulation
INR: 2.5- 3.5 high intensity anticoagulation Observation Date Value Abnormality Reference (Units ) Status PT 08/23/2024 11:37:09 20.8 Above high normal 11 .6-15.2 (seconds) Final INR 08/23/2024 11:37:09 1.8 Above high normal 0. 8-1.2 Final Performing Location [facility] [place] [address] [place] [address]
--- OUTSIDE RECORDS SUMMARY | 2024-11-05 21:47 | External Medical Summary ---
Author Name Unknown Address Unknown Organization K01:LABORATORY [facility] - [address] [place] [address] Laboratory Report Ordering Provider Test Date Status STEVE ALTMANRAVI 08/23/2024 11:37:09 Final Observation Date Value Abnormality Reference (Units ) Status Phosphate 08/23/2024 11:37:09 3.5 2.5-4.8 (m g/dL) Final Performing Location LAB[facility]ATORY [facility] - [address] [place] [address]
--- OUTSIDE RECORDS SUMMARY | 2024-11-05 21:47 | External Medical Summary ---
Author Name Unknown Address Unknown Organization [id number]:LABORATORY [facility] [place] - [address] [place] [address] Laboratory Report Ordering Provider Test Date Status RAKAN ALTMAN 08/23/2024 11:37:09 Final Deficient: <20 ng/mL
Ins ufficient: 20-29 ng/mL
Recommended/Optimum:30-50 ng/mL

Vitamin D intoxication is rare. If suspicious of Vitamin D toxicity, evaluation of serum Calcium and PTH is recommended. Observation Date Value Abnormality Reference (Units ) Status 25-OH Vitamin D total 08/23/2024 11:37:09 28 >19 (ng/mL) Final Performing Location LABORATORY [facility] [place] - [address] [place] [address]
--- OUTSIDE RECORDS SUMMARY | 2024-11-05 21:47 | External Medical Summary | Summary of Care ---
Author Name Unknown Organization [facility] Address [address] [place] [address] Phone [phone] Care Team Providers Care Cobol Application Developer Name Role Phone Suman Simpson MD Primary Care Provider +1- [phone] Reason for Visit * Reason Comments Dosage Adjustment Via Phone (anticoag Cl inic) Encounter Details Date Type Department Care Team (Latest Contact Info) Description 08/24/2024 6:00 AM EDT Anticoagulation Pharmacy, [place] [address] [place] [address] [facility] [address] [place] [address] Anticoagulation management encounter*; Atrial fibrillation, unspecified type (HCC) Allergies Active Allergy Reactions Criticality Noted Date Comments Metolazone 07/29/2021 Severe HYponatremia Morphine Sulfate Other (Please comment) 006 hallucinate Oxycodone Other (Please comment) 07/07/2006 Hallucinate Penicillins 07/21/2011 Hallucinate documented as of this encounter (statuses as of 08/24/2024) Medications Medication Sig Dispensed Refills Start Date [...] kidney disease not on chronic dialysis ([facility]) Take 2 tablets in AM and 2 [...] as of this encounter (statuses as of 08/24/2024) Active Problems Problem Noted Date Diagnosed Date [...] as of this encounter (statuses as of 08/24/2024) Resolved Problems Problem Noted Date Diagnosed Date Resolved Date Hypertensive chronic kidney disease with stage 5 chronic kidney disease or end stage renal disease 01/27/2023 08/24/2023 Atherosclerosis of belkofski 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 09/13/2021 [...] as of this encounter (statuses as of 08/24/2024) Immunizations Name Administration Dates Next Due COVID-19 mRNA, LNP-s, No Pre serve, 2-Dose Series ([employer]) 10/20/2021,02/28/2021,02/07/2021 COVID-19, MRNA-LNP, 23-24, P F, 30 MCG/0.3 mL, 12 YRS AND ABOVE, IM ([employer]) 10/13/2023 Covid-19, Mrna, Lnp-s, Pf, B ivalent, 30 Mcg, IM, 12 yrs and above ([employer]) 09/12/2022 HEPATITIS B VACCINE, RECOMB, 20 MCG/ML, [...] Progress Notes * Helen Boyer, [facility] - 08/24/2024 3:28 PM EDT Images from the original note were not included. Medication Therapy Disease Management - Anticoagulation Patient: Tre Trejo | : 1940 Subjective Contacts Contact Date/Time Type Contact Phone/Fax 08/24/2024 03:28 PM EDT Phone (Outgoing) Tre Trejo (Self) [phone] (H) Spoke to Patient Patient-Reported Symptoms: Patient Findings Negatives: Signs/symptoms of thrombosis, Signs/symptoms of bleeding, Change in health, Change in alcohol use, Change in activity, Upcoming invasive procedure, Missed doses, Extra doses, Change in medications, Change in diet/appetite, Bruising Objective Current Warfarin Dose As of 08/24/2024 Warfarin maintenance plan: 5 mg (2.5 mg x 2) every Sun, Tue, Thu; 2.5 mg (2.5 mg x 1) all other days INR Result As of 08/24/2024 INR goal: 2.0-3.0 INR used for dosin.8 (08/23/2024) Assessment & Plan Warfarin Plan As of 08/24/2024 Full warfarin instructions: 08/24: 5 mg; Otherwise 5 mg every Sun, Tue, Fri; 2.5 mg all other days Next INR check: 09/27/2024 Repeat PT/INR in 4 week(s) Weekly dose: not changed Additional Dosing [...] by another provider/QHP. Helen Boyer [facility] Clinical Pharmacist 08/24/2024, 3:28 PM documented in this encounter Plan of Treatment Upcoming Encounters Date Type Department Care Team (Late st Contact Info) Description 08/29/2024 11:20 AM EDT Office Visit Pulmonary Medicine, [facility] [address] [facility] [place] [address] [facility]pez [facility] [address] [facility] [facility] [address] 08/31/2024 3:00 PM EDT Nurse Only Ancillary Department, [place] [address] [place] [address] [place], Nurse [address] [place] [address] 09/12/2024 3:30 PM EDT Telemedicine Orthopaedics [facility] [address] [facility] [place] [address] Obdulio Valero MD [address] [facility] [place] [address] 09/27/2024 3:20 PM EDT Anticoagulation Pharmacy, [facility] [address] [place] [address] [facility] [address] [place] [address] 09/27/2024 4:00 PM EDT Office Visit Family Practice, [place] [address] [place] [phone] Suman Simpson MD [address], [place] [id number] 03/13/2025 3:00 PM EDT Office Visit Nephrology, [facility] [address] [place] [address] Daivd Jaramillo MD [address] [place] [address] Health Maintenance Due Date Last Done Comments [...] as of this encounter Visit Diagnoses Diagnosis Anticoagulation management encounter- Primary Encounter for therapeutic [...] Name Relationship Healthcare Agent Relationshi p Communication Latiasuresh Trejo Spouse Health Care Agent Care Teams Cobol Application Developer Relationship Specialty Start Date End Date Suman Simpson MD [address] [place] [address] PCP - General 01/26/03 documented as of this encounter
--- OUTSIDE RECORDS SUMMARY | 2024-11-05 21:47 | External Medical Summary ---
Author Name Unknown Address Unknown Organization K01:[facility]ATORY [facility] - [address] [place] [address] Laboratory Report Ordering Provider Test Date Status STEVE ALTMANRAVI 08/23/2024 11:37:09 Final Observation Date Value Abnormality Reference (Units ) Status Magnesium 08/23/2024 11:37:09 2.1 1.5-2.6 (m g/dL) Final Performing Location LAB[facility] - [address] [place] [address]
--- OUTSIDE RECORDS SUMMARY | 2024-11-05 21:47 | External Medical Summary ---
Author Name Unknown Address Unknown Organization K01:LAB[facility]ATORY [facility] [place] - [address] [place] [address] Laboratory Report Ordering Provider Test Date Status 08/23/2024 11:37:09 Final Observation Date Value Abnormality Reference (Units ) Status Iron 08/23/2024 11:37:09 21 Below low normal 45-176 (ug/dL) Final Iron-binding capacity 08/23/2024 11:37:09 198 Below low normal 250-425 (ug/dL) Final Transferrin Sat % 08/23/2024 11:37:09 11 Below low normal 15-55 (%) Final Performing Location LAB[facility]ATORY [facility] [place] - [address] [place] [address]
--- OUTSIDE RECORDS SUMMARY | 2024-11-05 21:47 | External Medical Summary | Summary of Care ---
Author Name Unknown Organization [facility] Address [address] [place] [address] Phone [phone] Care Team Providers Care Videotape Operator Name Role Phone Suman Simpson MD Primary Care Provider +1- [phone] Reason for Visit * Reason Onset Date Comments Test Results 08/24/2024 Encounter Details Date Type Department Care Team (Late st Contact Info) Description 08/24/2024 Telephone [facility] [address] [place] [address] David Jaramillo MD [address] [place] [address] Test Results Allergies Active Allergy Reactions Criticality [...] B, by GOLD 2017 classification ([facility]) Inhale 1 Puff by mouth in the morning. 180 Each 3 4 Active Gabapentin 100 MG Oral Capsule (Neurontin) Take 1 capsule by mouth twice per day. 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 ([facility]) Take 2 tablets in AM [...] B, by GOLD 2017 classification ([facility]) Take 1 Capsule by mouth [...] mRNA, LNP-s, No Pre serve, 2-Dose Series ([employer]) 10/20/2021,02/28/2021,02/07/2021 COVID-19, MRNA-LNP, 23-24, P F, 30 MCG/0.3 mL, 12 YRS AND ABOVE, IM ([facility]) 10/13/2023 Covid-19, Mrna, Lnp-s, Pf, B ivalent, 30 Mcg, IM, 12 yrs and above ([employer]) 09/12/2022 HEPATITIS B VACCINE, RECOMB, 20 MCG/ML, [...] along with Follow up labs placed in [facility] lab system As above pt does note [...] Pt requested this to be sent to [facility] on [facility] Pt does note lower calf edema bilaterally [...] 11:20 AM EDT Office Visit Pulmonary Medicine, [facility] [address] [facility] [place] [address] Bradley [facility]pez [facility] [address] [facility] [address] 08/31/2024 3:00 PM EDT Nurse Only Ancillary Department, [address] [address] [place] [facility] [place] [address] 09/12/2024 3:30 PM EDT Telemedicine Orthopaedics [facility] [address] [facility] [place] [address] Obdulio Valero MD [address] [facility] [place] [address] 09/27/2024 3:20 PM EDT Anticoagulation Pharmacy, [address] [place] [address] [facility] [address] [place] [facility] [place] [address] 09/27/2024 4:00 PM EDT Office Visit Family Practice, [place] [address] [facility] [id number] Suman Simpson MD [address] [place] [facility] [place] [place] [address] 03/13/2025 3:00 PM EDT Office Visit Nephrology, [facility] [address] [facility] [place] [address] David Jaramillo MD [address] [facility] [place] [address] Scheduled Orders Name Type Priority Associated Diagnoses [...] Trejo Spouse Health Care Agent Care Teams Videotape Operator Relationship Specialty Start Date End Date Oesterling, Suman R, MD [address] [facility] [place] [id number] PCP - General 01/26/03 documented as of this encounter
--- OUTSIDE RECORDS SUMMARY | 2024-11-05 21:47 | External Medical Summary ---
Author Name Unknown Address Unknown Organization K01:[place] [facility] [place] [address] [place] [address] Laboratory Report Ordering Provider Test Date Status RAKAN ALTMAN 08/23/2024 11:43:59 Final Normal: <150 mg/ g creatinine
High: 150-500 mg/g creatinine
Very High: >500 mg/g creatinine
Nephrotic: >3000 mg/g creatinine Observation Date Value Abnormality Reference (Units ) Status Protein/Creatinine [Ratio] in Urine 08/23/2024 11:43:59 859 Above high normal <150 (mg/g ) Final Protein, Urine 08/23/2024 11:43:59 55 (mg/dL) Final Creatinine, Urine 08/23/2024 11:43:59 64 (mg/dL) Final Performing Location [facility] [facility] [place] [address] [place] [address]
--- OUTSIDE RECORDS SUMMARY | 2024-11-05 21:47 | External Medical Summary ---
Author Name Unknown Address Unknown Organization K01:LABORATORY [facility] [place] - [address] [place] [address] Laboratory Report Ordering Provider Test Date Status LIZET HOUSTON 08/23/2024 11:37:09 Final Observation Date Value Abnormality Reference (Units ) Status MYCODE SPECIMEN-SST 08/23/2024 11:37:09 Freezing of extracted DNA, whole blood and/or serum. Final Performing Location LABORATORY [facility] - [address] [place] [address]
--- OUTSIDE RECORDS SUMMARY | 2024-11-05 21:47 | External Medical Summary | Summary of Care ---
Author Name Unknown Organization [facility] Address [address] [place] [address] Phone [phone] Care Team Providers Care Tailor Women'S Garment Alteration Name Role Phone Suman Simpson MD Primary Care Provider +1- [phone] Reason for Visit * Reason Comments Outpatient Testing Encounter Details Date Type Department Care Team (Late st Contact Info) Description 08/23/2024 11:10 AM EDT Laboratory Laboratory, [place] [address] [place] [address] [place], [facility] [address] [place] [address] Anemia, unspecified type*; Atrial fibrillation, unspecified type ([facility]); Anticoagulation management encounter; CKD (chronic kidney disease) stage 4, GFR 15-29 ml/min ([facility]); MyCode Research Other*[id number]; 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 ([facility]); COPD, group B, by GOLD 2017 classification ([facility]); GUALLPA (dyspnea on exertion); History of GI bleed Allergies Active Allergy Reactions Criticality Noted Date [...] stage renal disease 01/27/2023 08/24/2023 Atherosclerosis of [place] 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 09/13/2021 [...] mRNA, LNP-s, No Pre serve, 2-Dose Series ([facility]) 10/20/2021,02/28/2021,02/07/2021 COVID-19, MRNA-LNP, 23-24, P F, 30 MCG/0.3 mL, 12 YRS AND ABOVE, IM ([facility]) 10/13/2023 Covid-19, Mrna, Lnp-s, Pf, B ivalent, 30 Mcg, IM, 12 yrs and above ([facility]) 09/12/2022 HEPATITIS B VACCINE, RECOMB, 20 MCG/ML, [...] as of this encounter Miscellaneous Notes * Addendum Note - Sulma Vinson MD - 08/24/2024 7:35 AM EDTAddended by: SULMA VINSON on: 08/24/2024 07:35 AM Modules accepted: Orders documented in this encounter Plan of Treatment Upcoming Encounters Date Type Department Care Team (Late st Contact Info) Description 08/29/2024 11:20 AM EDT Office Visit Pulmonary Medicine, [facility] [address] [facility] [place] [address] Bradley Yepez MD [address] [place] [address] 08/31/2024 3:00 PM EDT Nurse Only [address]illary Department, [address] [address] [place] [address] [facility] [address] 09/12/2024 3:30 PM EDT Telemedicine Orthopaedics [facility] [address] [facility] [place] [address] Obdulio Valero MD [address] [place] [address] 09/27/2024 4:00 PM EDT [facility] [place] [address] [facility] [id number] Suman Simpson MD [address] [place] [address] 03/13/2025 3:00 PM EDT Office Visit Nephrology, [facility] [address] [facility] [place], [place] [address] David Jaramillo MD [address] [facility] [place] [address] Pending Results Name Type Priority Associated Diagnoses Date /Time MYCODE SUBSEQUENT ADULT Lab Routine MyCode Research Other*[id number] 08/23/2024 11:37 AM EDT MYCODE SST1 Lab Routine MyCode Research Other*[id number] 08/23/2024 11:37 AM EDT MYCODE SST2 Lab Routine MyCode Research Other*[id number] 08/23/2024 11:37 AM EDT Scheduled Orders Name Type Priority Associated Diagnoses Orde r Schedule FECAL OCCULT BLOOD, EIA Lab Routine Anemia, unspecified type History of GI bleed Expected: 08/24/2024 (Approximate), Expires: 08/24/2025 IRON SCREEN, INCLUDING TIBC Lab Routine Anemia, unspecified type Expected: 08/24/2024 (Approximate), Expires: 08/24/2025 Health Maintenance [...] Procedure Name Priority Date/Time Associated Diagnosis Comments PROTEIN/ CREATININE RATIO, URINE Routine 08/23/2024 11:43 AM EDT CKD (chronic kidney disease) stage 4, GFR 15-29 ml/min (HCC) DIFFERENTIAL, AUTOMATED Routine 08/23/2024 11:37 AM EDT CKD (chronic kidney disease) stage 4, GFR 15-29 ml/min (HCC) 25-HYDROXY VITAMIN D Routine 08/23/2024 11:37 AM EDT CKD (chronic kidney disease) stage 4, GFR 15-29 ml/min (HCC) COMPREHENSIVE METABOLIC PANEL Routine 08/23/2024 11:37 AM EDT 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) CBC Routine 08/23/2024 11:37 AM EDT CKD (chronic kidney disease) stage 4, GFR 15-29 ml/min (HCC) PT INR Routine 08/23/2024 11:37 AM EDT Atrial fibrillation, unspecified type (HCC) Anticoagulation management encounter PHOSPHORUS Routine 08/23/2024 11:37 AM EDT CKD (chronic kidney disease) stage 4, GFR 15-29 ml/min (HCC) PTH Routine 08/23/2024 11:37 AM EDT CKD (chronic kidney disease) stage 4, GFR 15-29 ml/min (HCC) CBC Routine 08/23/2024 11:37 AM EDT CKD (chronic kidney disease) stage 4, GFR 15-29 ml/min (HCC) MAGNESIUM Routine 08/23/2024 11:37 AM EDT CKD (chronic kidney disease) stage 4, GFR 15-29 ml/min (HCC) documented in this encounter Results * (ABNORMAL) PROTEIN/ CREATININE RATIO, URINE (08/23/2024 11:43 AM EDT) Protein/ Creatinine Ratio, Urine 859(H) <150 mg/g 08/24/2024 3:50 AM EDT [facility] Protein, Random Urine 55 mg/dL 08/24/2024 3:50 AM EDT [facility] Creatinine, Random Urine 64 mg/dL 08/24/2024 3:50 AM EDT [facility] Urine Non-blood Collection / Unknown 08/23/2024 11:43 AM EDT 08/23/2024 11:43 AM EDT Narrative [facility] - 08/24/2024 3:50 AM EDT Normal: <150 mg/g creatinine High: 150-500 mg/g creatinine Very High: >500 mg/g creatinine Nephrotic: >3000 mg/g creatinine David Jaramillo MD LAB URINE ORDERABLES Performing Organization Address City/[facility]/ZIP Co de Phone Number [facility] [address] [place] [address] * PHOSPHORUS (08/23/2024 11:37 AM EDT) Phosphorus 3.5 2.5 - 4.8 mg/dL 08/24/2024 1:49 AM EDT [facility] Blood Venous blood specimen / Unknown Venipuncture / Unknown 08/23/2024 11:37 AM EDT 08/23/2024 11:37 AM EDT David Jaramillo MD LAB BLOOD ORDERABLES Performing Organization Address City/[facility]/ZIP Co de Phone Number LABORATORY [facility] [address] [place] [address] * (ABNORMAL) DIFFERENTIAL, AUTOMATED (08/23/2024 11:37 AM EDT) WBC 8.03 4.00 - 10.80 K/uL 08/24/2024 1:45 AM EDT [facility] Neutrophils % 77.2(H) 40.0 - 75.0 % 08/24/2024 1:45 AM EDT [facility] Lymphocytes % 7.6(L) 18.0 - 42.0 % 08/24/2024 1:45 AM EDT [facility] Monocytes % 6.6 1.0 - 11.0 % 08/24/2024 1:45 AM EDT [facility] Eosinophils % 7.1(H) 0.0 - 6.0 % 08/24/2024 1:45 AM EDT [facility] Basophils % 0.5 0.0 - 2.0 % 08/24/2024 1:45 AM EDT [facility] Immature Granulocytes % 1.0 0.0 - 2.0 % 08/24/2024 1:45 AM EDT [facility] Absolute Neutrophils 6.20 1.80 - 7.70 K/uL 08/24/2024 1:45 AM EDT [facility] Absolute Lymphocytes 0.61(L) 1.00 - 4.80 K/ul 08/24/2024 1:45 AM EDT [facility] Absolute Monocytes 0.53 0.00 - 1.10 K/uL 08/24/2024 1:45 AM EDT [facility] Absolute Eosinophils 0.57 0.00 - 0.70 K/uL 08/24/2024 1:45 AM EDT [facility] Absolute Basophils 0.04 0.00 - 0.20 K/uL 08/24/2024 1:45 AM EDT [facility] Absolute Immature Granulocytes 0.08 0.00 - 0.20 K/uL 08/24/2024 1:45 AM EDT [facility] Blood Venous blood specimen / Unknown Venipuncture / Unknown 08/23/2024 11:37 AM EDT 08/23/2024 11:37 AM EDT David Jaramillo MD LAB BLOOD ORDERABLES [facility] [address] [place] [address] * (ABNORMAL) CBC (08/23/2024 11:37 AM EDT) WBC 8.03 4.00 - 10.80 K/uL 08/24/2024 1:45 AM EDT [facility] RBC 3.48 4.50 - 5.25 M/uL 08/24/2024 1:45 AM EDT [facility] HGB 10.0(L) 14.0 - 16.8 g/dL 08/24/2024 1:45 AM EDT [facility] HCT 32.5(L) 40.0 - 48.4 % 08/24/2024 1:45 AM EDT [facility] MCV 93.4 82.0 - 99.5 fL 08/24/2024 1:45 AM EDT [facility] MCH 28.7 27.0 - 34.0 pg 08/24/2024 1:45 AM EDT [facility] MCHC 30.8 32.0 - 36.0 g/dL 08/24/2024 1:45 AM EDT [facility] RDW 16.3 11.5 - 15.5 % 08/24/2024 1:45 AM EDT [facility] PLT 120(L) 140 - 400 K/uL 08/24/2024 1:45 AM EDT [facility] MPV 12.3 6.6 - 11.1 fL 08/24/2024 1:45 AM EDT [facility] nRBCs 0 <=0 /100 WBCs 08/24/2024 1:45 AM EDT [facility] Blood Venous blood specimen / Unknown Venipuncture / Unknown 08/23/2024 11:37 AM EDT 08/23/2024 11:37 AM EDT David Jaramillo MD LAB BLOOD ORDERABLES LAB[facility]ATORY [facility] [address] [place] [address] * (ABNORMAL) COMPREHENSIVE METABOLIC PANEL (08/23/2024 11:37 AM EDT) BUN 62(H) 6 - 20 mg/dL 08/24/2024 1:49 AM EDT [facility] CREATININE 3.3(H) 0.6 - 1.2 mg/dL 08/24/2024 1:49 AM EDT [facility] EGFR 18(L) >=60 mL/min 08/24/2024 1:49 AM EDT [facility] Comment:eGFR is calculated b ased on the CKD-EPI 2020 equation. SODIUM 136 135 - 146 mmol/L 08/24/2024 1:49 AM EDT [facility] POTASSIUM 4.6 3.5 - 5.1 mmol/L 08/24/2024 1:49 AM EDT [facility] CHLORIDE 97(L) 98 - 107 mmol/L 08/24/2024 1:49 AM EDT [facility] CO2 28 22 - 32 mmol/L 08/24/2024 1:49 AM EDT [facility] ANION GAP 11 7 - 15 mmol/L 08/24/2024 1:49 AM EDT [facility] GLUCOSE 268(H) 70 - 120 mg/dL 08/24/2024 1:49 AM EDT [facility] Albumin 3.5(L) 3.8 - 5.0 g/dL 08/24/2024 1:49 AM EDT [facility] AST 24 10 - 50 U/L 08/24/2024 1:49 AM EDT [facility] Alkaline Phosphatase 148(H) 35 - 130 U/L 08/24/2024 1:49 AM EDT [facility] Bilirubin, Total 0.9 <=1.2 mg/dL 08/24/2024 1:49 AM EDT [facility] CALCIUM 9.3 8.4 - 10.2 mg/dL 08/24/2024 1:49 AM EDT [facility] Protein 5.5(L) 6.0 - 8.3 g/dL 08/24/2024 1:49 AM EDT [facility] ALT 46 10 - 50 U/L 08/24/2024 1:49 AM EDT [facility] Blood Venous blood specimen / Unknown Venipuncture / Unknown 08/23/2024 11:37 AM EDT 08/23/2024 11:37 AM EDT Sulma Vinson MD LAB BLOOD ORDERABLES LAB[facility]ATORY [facility] [address] [place] [address] * 25-HYDROXY VITAMIN D (08/23/2024 11:37 AM EDT) 25-Hydroxy Vitamin D 28 >19 ng/mL 08/24/2024 2:25 AM EDT [facility] Blood Venous blood specimen / Unknown Venipuncture / Unknown 08/23/2024 11:37 AM EDT 08/23/2024 11:37 AM EDT Narrative LABORATORY [facility] - 08/24/2024 2:25 AM EDT Deficient: <20 ng/mL Insufficient: 20-29 ng/mL Recommended/Optimum:30-50 ng/mL Vitamin D intoxication is rare. If suspicious of Vitamin D toxicity, evaluation of serum Calcium and PTH is recommended. David Jaramillo MD LAB BLOOD ORDERABLES Performing Organization Address City/[facility] Co de Phone Number LABORATORY [facility] [address] [place] [address] * MAGNESIUM (08/23/2024 11:37 AM EDT) Magnesium 2.1 1.5 - 2.6 mg/dL 08/24/2024 1:49 AM EDT LABORATORY [facility] Blood Venous blood specimen / Unknown Venipuncture / Unknown 08/23/2024 11:37 AM EDT 08/23/2024 11:37 AM EDT David Jaramillo MD LAB BLOOD ORDERABLES Performing Organization Address [facility] de Phone Number LABORATORY [facility] [address] [place] [address] * (ABNORMAL) PTH (08/23/2024 11:37 AM EDT) PTH 178(H) 15 - 65 pg/mL 08/24/2024 2:25 AM EDT LABORATORY [facility] Blood Venous blood specimen / Unknown Venipuncture / Unknown 08/23/2024 11:37 AM EDT 08/23/2024 11:37 AM EDT David Jaramillo MD LAB BLOOD ORDERABLES Performing Organization Address [facility] de Phone Number LABORATORY [facility] [address] [place] [address] * (ABNORMAL) PT INR (08/23/2024 11:37 AM EDT) Prothrombin Time 20.8(H) 11.6 - 15.2 seconds 08/24/2024 3:28 AM EDT LABORATORY [facility] INR 1.8(H) 0.8 - 1.2 08/24/2024 3:28 AM EDT LABORATORY [facility] Blood Venous blood specimen / Unknown Venipuncture / Unknown 08/23/2024 11:37 AM EDT 08/23/2024 11:37 AM EDT Narrative LABORATORY [facility] - 08/24/2024 3:28 AM EDT Warfarin Therapy INR: 2.0-3.0 conventional anticoagulation INR: 2.5-3.5 high intensity anticoagulation Helen Maryan Rosalind [facility] LAB BLOOD OR DERABLES LABORATORY [facility] [address] [place] [address] documented in this encounter Visit Diagnoses Diagnosis Anemia, unspecified type- Primary Atrial fibrillation, unspecified type ([facility]) Anticoagulation management encounter Encounter for therapeutic drug monitoring CKD (chronic kidney disease) stage 4, GFR 15-29 ml/min ([facility]) Chronic kidney disease, Stage IV (severe) MyCode Research Other*[id number] 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
--- OUTSIDE RECORDS SUMMARY | 2024-11-05 21:47 | External Medical Summary ---
Author Name Unknown Address Unknown Organization [id number]:[facility] - [address] [facility] [place] [address] Laboratory Report Ordering Provider Test Date Status 08/23/2024 11:37:09 Final Observation Date Value Abnormality Reference (Units ) Status BUN 08/23/2024 11:37:09 62 Above high normal 6-20 (mg/dL) Final Creatinine 08/23/2024 11:37:09 3.3 Above high normal 0.6-1.2 (mg/dL) Final Glomerular filtration rate/1.73 sq M.predicted [Volume Rate/Area] in Serum, Plasma or Blood by Creatinine-based formula (CKD-EPI) 08/23/2024 11:37:09 18 Below low normal >=60 (mL/min) Final eGFR is calculated based on the CKD-EPI 2020 equation. Sodium 08/23/2024 11:37:09 136 135-146 (m mol/L) Final Potassium 08/23/2024 11:37:09 4.6 3.5-5.1 (m mol/L) Final Cl 08/23/2024 11:37:09 97 Below low normal 98- 107 (mmol/L) Final CO2 08/23/2024 11:37:09 28 22-32 (mmo l/L) Final Anion gap 08/23/2024 11:37:09 11 7-15 (mmol /L) Final Glucose 08/23/2024 11:37:09 268 Above high normal 70 -120 (mg/dL) Final Albumin 08/23/2024 11:37:09 3.5 Below low normal 3.8 -5.0 (g/dL) Final AST (Aspartate aminotransferase) 08/23/2024 11:37:09 24 10-50 (U/L) Fin al Alk Phos 08/23/2024 11:37:09 148 Above high normal 35 -130 (U/L) Final Bilirubin, Total 08/23/2024 11:37:09 0.9 <=1 .2 (mg/dL) Final Calcium 08/23/2024 11:37:09 9.3 8.4-10.2 ( mg/dL) Final Protein 08/23/2024 11:37:09 5.5 Below low normal 6.0 -8.3 (g/dL) Final ALT (Alanine aminotransferase) 08/23/2024 11:37:09 46 10-50 (U/L) Agapito worrell Performing Location [facility] - [facility] [address]. [facility] [address]
--- OUTSIDE RECORDS SUMMARY | 2024-11-05 21:47 | External Medical Summary | Summary of Care ---
Author Name Unknown Organization [facility] Address [address] [place] [address] Phone [phone] Care Team Providers Care Scalper Operator Name Role Phone Suman Simpson MD Primary Care Provider +1- [phone] Reason for Visit * Reason Onset Date Comments Medication Management 08/24/2024 Venofer Encounter Details Date Type Department Care Team (Late st Contact Info) Description 08/24/2024 Telephone Hematology/Oncology Treatment, [place] [address] [facility] [place] [place] [address] David Jaramillo MD [address] [place] [address] Medication Management (Venofer) Allergies Active Allergy Reactions [...] B, by GOLD 2017 classification ([facility]) Inhale 1 Puff by mouth in the morning. 180 Each 3 4 Active Gabapentin 100 MG Oral Capsule (Neurontin) Take 1 capsule by mouth twice per day. 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 ([facility]) Take 2 tablets in AM and 2 [...] B, by GOLD 2017 classification ([facility]) Take 1 Capsule by mouth 3 times [...] stage renal disease 01/27/2023 08/24/2023 Atherosclerosis of [place] 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 09/13/2021 [...] mRNA, LNP-s, No Pre serve, 2-Dose Series ([facility]) 10/20/2021,02/28/2021,02/07/2021 COVID-19, MRNA-LNP, 23-24, P F, 30 MCG/0.3 mL, 12 YRS AND ABOVE, IM ([facility]) 10/13/2023 Covid-19, Mrna, Lnp-s, Pf, B ivalent, 30 Mcg, IM, 12 yrs and above ([facility]) 09/12/2022 HEPATITIS B VACCINE, RECOMB, 20 MCG/ML, [...] encounter Miscellaneous Notes * Telephone Encounter - Evette Glover LPN - 08/24/2024 2:56 PM EDT Order received for Venofer [place] plan built and routed to provider No prior authorization required Awaiting provider signature before scheduling patient documented in this encounter Plan of Treatment Upcoming Encounters Date Type Department Care Team (Late st Contact Info) Description 08/29/2024 11:20 AM EDT Office Visit Pulmonary Medicine, [facility] [address] [facility] [place] [address] Bradley Yepez MD [address] [place] [phone] 08/31/2024 3:00 PM EDT Nurse Only Ancillary Department, [address] [place] [phone] Nurse Alex [address] [place] [address] 09/12/2024 3:30 PM EDT Telemedicine Orthopaedics [facility] [address] [place] [address] Obdulio Valero MD [address] [place] [address] 09/27/2024 4:00 PM EDT Office Visit Family Practice, [place] [address] [place] [facility] [place] [address] Suman Simpson MD [address] [place] [address] 03/13/2025 3:00 PM EDT Office Visit Nephrology, [facility] [address] [facility] [place] [address] David Jaramillo MD [address] [facility] [place] [address] Health Maintenance Due Date Last Done Comments [...] Trejo Spouse Health Care Agent Care Teams Scalper Operator Relationship Specialty Start Date End Date Suman Simpson MD [address] [place], [place] [id number] PCP - General 01/26/03 documented as of this encounter
--- OUTSIDE RECORDS SUMMARY | 2024-11-05 21:47 | External Medical Summary ---
Author Name Unknown Address Unknown Organization K01:[facility]ORY [facility] - [address] [facility] [address] Laboratory Report Ordering Provider Test Date Status RAKAN ALTMAN 08/23/2024 11:37:09 Final Observation Date Value Abnormality Reference (Units ) Status SYNC LEUKOCYTES IN BLOOD BY AUTOMATED COUNT 08/23/2024 11:37:09 8.03 4.00-10.80 (K/uL) Final Segs 08/23/2024 11:37:09 77.2 Above high normal 40.0-75.0 (%) Final Lymphs % 08/23/2024 11:37:09 7.6 Below low normal 18.0-42.0 (%) Final Monos 08/23/2024 11:37:09 6.6 1.0-11.0 (%) Final Eosinophils 08/23/2024 11:37:09 7.1 Above high normal 0.0-6.0 (%) Final Basos 08/23/2024 11:37:09 0.5 0.0-2.0 (%) Final Immature Granulocyte, Percent 08/23/2024 11:37:09 1.0 0.0-2.0 (%) Final Absolute Segs 08/23/2024 11:37:09 6.20 1.80-7.70 (K/uL) Final Lymphs, absolute 08/23/2024 11:37:09 0.61 Below low normal 1.00-4.80 (K/ul) Final Monos, Abs 08/23/2024 11:37:09 0.53 0.00-1.10 (K/uL) Final Eos, Abs 08/23/2024 11:37:09 0.57 0.00-0.70 (K/uL) Final Basos, Abs 08/23/2024 11:37:09 0.04 0.00-0.20 (K/uL) Final Immature Granulocytes, Number 08/23/2024 11:37:09 0.08 0.00-0.20 (K/uL) Final Performing Location LAB[facility]ORY [facility] - [facility] [address] [facility] [address]
--- OUTSIDE RECORDS SUMMARY | 2024-11-05 21:48 | External Medical Summary | Summary of Care ---
Author Name Unknown Organization [facility] Address [address] [place] [address] Phone [phone] Care Team Providers Care Money Manager Name Role Phone Suman Simpson MD Primary Care Provider [phone]- [phone] Reason for Visit * Reason Comments Return Visit Chronic Kidney Disease (CKD) Hypertension Stage 5 Encounter Details Date Type Department Care Team (Late st Contact Info) Description 07/26/2024 2:40 PM EDT Office Visit Nephrology, [facility] [address] [place] [address] David Jaramillo MD [address] [facility] [place] [address] CKD (chronic kidney disease) stage 4, GFR 15-29 ml/min ([facility])*; Pulmonary HTN (HCC); Heart failure, diastolic, due to HTN ([facility]) Allergies Active Allergy Reactions Criticality Noted Date Comments Metolazone 07/29/2021 Severe HYponatremia Morphine Sulfate Other (Please comment) 006 hallucinate Oxycodone Other (Please comment) 07/07/2006 Hallucinate Penicillins 07/21/2011 Hallucinate documented as of this encounter (statuses as of 07/26/2024) Medications Medication Sig Dispensed Refills Start Date [...] 14 Each 4 Active Additional Information Patient taking differently:17 g Oral Daily(AM),As needed, Reported on 07/26/2024 Sennosides-Docusate Sodium 8.6-50 MG Oral Tablet (Senokot-S)Indicati [...] group B, by GOLD 2017 classification ([facility]) Inhale 1 Puff by mouth in the morning. 180 Each 3 4 Active Gabapentin 100 MG Oral Capsule (Neurontin) Take 1 capsule by mouth twice per day. 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 ([facility]) Take 2 tablets in AM and 2 [...] area daily. 85 g 1 4 Active documented as of this encounter (statuses as of 07/26/2024) Active Problems Problem Noted Date Diagnosed Date [...] as of this encounter (statuses as of 07/26/2024) Resolved Problems Problem Noted Date Diagnosed Date Resolved Date Hypertensive chronic kidney disease with stage 5 chronic kidney disease or end stage renal disease 01/27/2023 08/24/2023 Atherosclerosis of [place] 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 09/13/2021 [...] as of this encounter (statuses as of 07/26/2024) Immunizations Name Administration Dates Next Due COVID-19 mRNA, LNP-s, No Pre serve, 2-Dose Series ([employer]) 10/20/2021,02/28/2021,02/07/2021 COVID-19, MRNA-LNP, 23-24, P F, 30 MCG/0.3 mL, 12 YRS AND ABOVE, IM ([employer]) 10/13/2023 Covid-19, Mrna, Lnp-s, Pf, B ivalent, 30 Mcg, IM, 12 yrs and above ([employer]) 09/12/2022 HEPATITIS B VACCINE, RECOMB, 20 MCG/ML, ADULT (HEPLISAV-B) 09/19/2023 Pneumococcal Conjugate Vacc, 13 Valent (Prevnar) 08/02/2015 Pneumococcal Polysaccharide PPV23 (Pneumovax) 08/31/2012 Seasonal Influenza Virus Vac cine, Unspecified Formulation 09/10/2020,12/01/2019,08/26/2018,08/27,08/26/2016,08/31/2012,09/12/2011 ,09/05/2010,12/18/2009,10/09/2008,08/30,09/22/2006 Seasonal Influenza, PF, 6 M & above, IM , (FluLaval or Fluzone) 09/10/2020,08/26/2018,08/27/2017 Seasonal Influenza, Quadriva lent Hd (Fluzone Hd) 08/12/2023,09/19/2022,09/12/2021 Seasonal Influenza, Quadriva lent Hd, 65+ Yrs 08/12/2023,09/19/2022,09/12/2021 Seasonal Influenza, Split, I IV3, With Preserve, Inj 08/26/2016,08/31/2012,09/12/2011,09/05,12/18/2009,10/09/2008,09/15/2007 ,09/22/2006 Seasonal Influenza, Trivalen t, Adjuvanted, 65+ yrs 12/01/2019 TD, Preservative Free 01/13/2023 TDAP (age [...] Sign Reading Time Taken Comments Blood Pressure 141/67 07/26/2024 2:54 PM EDT Pulse 66 07/26/2024 2:54 PM EDT Temperature 36.6 C (97.9 F) 07/26/2024 2:52 PM ED T Respiratory Rate 20 07/26/2024 2:52 PM EDT Oxygen Saturation 96% 07/26/2024 2:52 PM EDT Inhaled Oxygen Concentration - - Weight 97.3 kg (214 lb 8 oz) 07/26/2024 2:52 PM EDT Height - - Body Mass Index 31.68 06/21/2024 11:37 AM EDT documented in this encounter Functional [...] as of this encounter Progress Notes * David Jaramillo MD - 07/26/2024 3:05 PM EDT REASON FOR VISIT: CKD 4 HPI: Wojciech Quinones is a 84 year old male with CKD stage 4 with nephrotic range proteinuria due to diabetic nephropathy. He has hypertension, gout, arthritis and obstructive sleep apnea not on CPAP. He takes Aleve for arthritis although does not take daily. Tylenol does not help. He is on inhalers for suspected COPD. He gets epidural pain injections. He is no longer taking tramadol. He saw Dr. Peacock for benign renal cysts. He had COVID infection September and October 2020 but he still has significant shortness of breath and poor exercise tolerance. Had Admission for Low Na 116 after addition ofMetolazone. AVF created Was on Dialysis for about 6 months Fall 2022 till . Partial recovery and also extreme Non Adherence so stopped dialysis December 2023 CXR and ECHO done actually did not show any florid issues with Pulm edema. Creat was 3.9 on after 3 weeks without dialysis. Last office visit was in --No new issues since last visit. Has good appetite . Still no major edema although bilateral leg has chronic skin changes of edema. Extremely poor exercise capacity and limited to very minimal activity like changing clothes and going from bedroom to bathroom. Appetite is good. AVF has good bruit and thrill. Now on Losartan 25 also Past Medical History: Diagnosis Date Allergic rhinitis [...] Sensorineural hearing loss, bilateral 2006 Sleep apnea Review of Systems: See HPI otherwise 12 systems reviewed and negative Family History Problem Relation Name Age of Onset Cancer Mother lung Gastro-intestinal disorder Father obstruction oct Cancer Brother liver cd 46 Social History Socioeconomic History Marital status: Spouse name: Not on file Number of children: Not on file Years of education: Not on file Highest education level: Not on file Occupational History Occupation: not currently employed Social Needs Financial resource strain: Not on file Food insecurity: Worry: Never true Inability: Never true Transportation needs: Medical: Not on file Non-medical: Not on file Tobacco Use Smoking status: Never Smoker Smokeless tobacco: Never Used Substance and Sexual Activity Alcohol use: Yes Comment: drinks maybe 2-3x's per year Drug use: No Sexual activity: Yes Partners: Female Lifestyle Physical activity: Days per week: Not on file Minutes per session: Not on file Stress: Not on file Relationships Social connections: Talks on phone: Not on file Gets together: Not on file Attends sikh service: Not on file Active member of club or organization: Not on file Attends meetings of clubs or organizations: Not on file Relationship status: Not on file Intimate partner violence: Fear of current or ex partner: Not on file Emotionally abused: Not on file Physically abused: Not on file Forced sexual activity: Not on file Other Topics Concern Service No Blood Transfusions No Caffeine Concern No 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 Allopurinol 100 MG Oral Tablet (Zyloprim) Take 1/2 tab by mouth daily 45 Tablet 3 Bisacodyl 5 MG Oral Tablet Delayed Release (Dulcolax) Take 1 Tablet by mouth daily as needed for Constipation. May take 1 or two tablets 30 Tablet 11 glipiZIDE 5 MG Oral Tablet (Glucotrol) Take 1 Tablet by mouth in the morning. 90 Tablet 3 Isosorbide Dinitrate 20 MG Oral Tablet (Isordil) [...] mouth in the morning. 90 Tablet 3 Metoprolol Succinate ER 100 MG Oral Tablet Extended Release 24 Hour (toPROL XL) TAKE ONE TABLET BY MOUTH EVERY MORNING AND AT BEDTIME 180 Tablet 3 OneTouch Verio In Vitro Strip (Glucose Blood) Use up to 4 times a day E11.9 100 Strip 11 Pantoprazole Sodium 40 MG Oral Tablet Delayed Release (Protonix) TAKE ONE TABLET BY MOUTH EVERY DAY30 MINUTES PRIOR TO EATING 90 Tablet 3 Polyethylene Glycol 3350 17 GM Oral Packet (Miralax) Take 1 Packet by mouth in the morning. (Patient taking differently: Take 1 Packet by mouth in the morning. As needed.) 14 Each 3 Sennosides-Docusate Sodium 8.6-50 MG Oral Tablet (Senokot-S) Take 1 Tablet by mouth at bedtime as needed for Constipation. May increase to 2 as needed 30 Tablet 11 Tamsulosin HCl 0.4 MG Oral Capsule (Flomax) Take 1 Capsule by mouth in the morning. 90 Capsule 3 Breo Ellipta 100-25 MCG/ACT Inhalation Aerosol Powder Breath Activated Inhale 1 Puff by mouth in the morning. 180 Each 3 Gabapentin 100 MG Oral Capsule (Neurontin) Take 1 capsule by mouth twice per day. 180 Capsule 1 Torsemide 100 MG Oral Tablet (Demadex) Take 2 tablets in AM and 2 tablet in PM. 360 Tablet 3 Warfarin Sodium 2.5 MG Oral Tablet (Jantoven) TAKE 1-2 TABLETS BY MOUTH DAILY. According to anticoagulation clinic 180 Tablet 3 Multiple Vitamins Oral Tablet Take 1 Tablet by mouth in the morning. Silver sulfADIAZINE 1 % External Cream (Silvadene) Apply topically to affected area daily. 85 g 1 Vitamin-B Complex Oral Tablet Take 1 Tablet by mouth in the morning. (Patient not taking: Reported on 06/21/2024) No current facility-administered medications for this visit. BP 141/67 (BP Site: Right Arm, BP Position: Sitting, BP Cuff Size: Large) Comment (BP Position): INWC | Pulse 66 | Temp 36.6 C (97.9 F) (Skin) | Resp 20 | Wt 97.3 kg (214 lb 8 oz) | SpO2 96% | BMI 31.68 kg/m | BSA 2.18 m PHYSICAL EXAM: GENERAL: Alert, in no acute distress. EYES: PERRL, conjunctivae anicteric. ENT: Mucous membranes moist, oropharynx clear. NECK: Supple, no JVD. LYMPH: No cervical or supraclavicular lymphadenopathy. LUNGS: Decreased breath sound at the bases bilaterally CARDIAC: Regular rate and rhythm, normal S1/S2, no murmurs, rubs, or gallops. ABDOMEN: Soft, non-tender, non-distended, bowel sounds present. EXT/MSK: No edema at all. Chronic Skin changes present though. LABS/STUDIES: NEPH-FLOW Latest Ref Rng & Units 04/26/2019 08/19/2019 01/09/2020 Bun 6 - 20 mg/dL 34 (H) 40 (H) 59 (H) Cr 0.6 - 1.2 mg/dL 2.6 (H) 2.7 (H) 3.4 (H) eGFR >60 mL/min eGFR >60 23.0 (L) 21.5 (L) 16.5 (L) K 3.5 - 5.1 mmol/L 4.4 4.3 4.2 Hb 14.0 - 16.8 g/dL Pro/Cr ratio 0.00 - 0.14 Microalb/cr ratio <30 mg/g creat NEPH-FLOW Latest Ref Rng & Units 06/14/2020 06/28/2020 Bun 6 - 20 mg/dL 45 (H) Cr 0.6 - 1.2 mg/dL 3.8 (H) eGFR >60 mL/min eGFR >60 14.1 (L) K 3.5 - 5.1 mmol/L 4.6 Hb 14.0 - 16.8 g/dL 11.5 (L) 11.9 (L) Pro/Cr ratio 0.00 - 0.14 Microalb/cr ratio <30 mg/g creat NEPH-FLOW Latest Ref Rng & Units 06/14/2020 06/28/2020 10/12/2020 Bun 6 - 20 mg/dL 45 (H) 51 (H) Cr 0.6 - 1.2 mg/dL 3.8 (H) 3.3 (H) eGFR >60 mL/min eGFR >60 14.1 (L) 17.1 (L) K 3.5 - 5.1 mmol/L 4.6 4.3 Hb 14.0 - 16.8 g/dL 11.5 (L) 11.9 (L) 11.1 (L) HGB 14.0 - 16.8 g/dL NEPH-FLOW Latest Ref Rng & Units 07/19/2021 07/22/2021 Bun 6 - 20 mg/dL 56 (H) 64 (H) Cr 0.6 - 1.2 mg/dL 3.5 (H) 3.6 (H) eGFR >=60.0 mL/min 15.6 (L) 15.0 (L) eGFR >60 K 3.5 - 5.1 mmol/L 3.8 3.5 Hb 14.0 - 16.8 g/dL Pro/Cr ratio <150 mg/g Results for WOJCIECH QUINONES ( ) as of 07/29/2021 14:37 Ref. Range 01/22/2021 15:22 04/22/2021 15:38 06/26/2021 10:27 07/19/2021 09:25 07/22/2021 14:31 Sodium Latest Ref Range: 135 - 146 mmol/L 138 138 121 (L) 116 (LL) NEPH-FLOW Latest Ref Rng & Units 08/13/2021 09/02/2021 10/31/2021 Bun 6 - 20 mg/dL 56 (H) 61 (H) 121 (H) Cr 0.6 - 1.2 mg/dL 4.3 (H) 4.0 (H) 6.7 (H) eGFR >=60 mL/min 12.1 (L) 13.4 (L) 7 (L) eGFR >60 K 3.5 - 5.1 mmol/L 4.4 4.4 5.9 (H) Hb 14.0 - 16.8 g/dL 12.3 (L) Pro/Cr ratio <150 mg/g Microalb/cr ratio <30 mg/g creat NEPH-FLOW Latest Ref Rng & Units 11/12/2021 11/19/2021 Bun 6 - 20 mg/dL 110 (H) 87 (H) Cr 0.6 - 1.2 mg/dL 4.7 (H) 4.6 (H) eGFR >=60 mL/min 11 (L) 11 (L) eGFR >60 K 3.5 - 5.1 mmol/L 4.2 4.2 Hb 14.0 - 16.8 g/dL Pro/Cr ratio <150 mg/g Microalb/cr ratio <30 mg/g creat NEPH-FLOW Latest Ref Rng & Units 12/27/2021 01/28/2022 03/17/2022 Bun 6 - 20 mg/dL 65 (H) 61 (H) 71 (H) Cr 0.6 - 1.2 mg/dL 3.8 (H) 3.7 (H) 3.6 (H) eGFR >=60 mL/min 15 (L) 16 (L) 16 (L) eGFR >60 K 3.5 - 5.1 mmol/L 4.0 4.0 3.9 Hb 14.0 - 16.8 g/dL 9.9 (L) 9.3 (L) 10.1 (L) Pro/Cr ratio <150 mg/g 259 (H) 133 NEPH-FLOW Latest Ref Rng & Units 05/08/2022 06/13/2022 07/29/2022 Bun 6 - 20 mg/dL 60 (H) 64 (H) 74 (H) Cr 0.6 - 1.2 mg/dL 4.1 (H) 4.0 (H) 3.9 (H) eGFR >=60 mL/min 14 (L) 14 (L) 15 (L) eGFR >60 K 3.5 - 5.1 mmol/L 4.0 4.0 3.9 Hb 14.0 - 16.8 g/dL 11.0 (L) 11.9 (L) 10.4 (L) Pro/Cr ratio <150 mg/g Microalb/cr ratio <30 mg/g creat Latest Reference Range & Units 08/05/23 16:08 Sodium 135 - 146 mmol/L 136 Potassium 3.5 - 5.1 mmol/L 4.1 Chloride 98 - 107 mmol/L 96 (L) CO2 22 - 32 mmol/L 26 BUN 6 - 20 mg/dL 91 (H) Creatinine 0.6 - 1.2 mg/dL 4.5 (H) Estimated Glomerular Filtration Rate >=60 mL/min 13 (L) EGFR-OUTSIDE LAB >=60 14 (L) Cystatin C 0.52 - 1.13 mg/L 3.43 (H) Anion Gap 7 - 15 mmol/L 14 Glucose 70 - 120 mg/dL 310 (H) Calcium 8.4 - 10.2 mg/dL 9.8 Phosphorus 2.5 - 4.8 mg/dL 3.4 ASSESSMENT AND PLAN CKD (chronic kidney disease) stage 5, GFR less than 15 ml/min ([facility]) (Primary) 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) CKD stage 5 with nephrotic range proteinuria secondary to longstanding diabetes and HTN. He had massive proteinuria before despite YANELIS inhibitor. He knows to avoid NSAIDs, limit salt intake. Did get AV fistula 09/2021 and at this time does have good bruit and thrill --AV fistula looks Fair. He was started on incenter hemodialysis for diuretic resistant fluid overload and GFR of less than 13 in discussion with Cardiology--Jul 2023. Initially was compliant with dialysis but then started becoming very noncompliant . Stopped dialysis after partial recovery. He has AV fistula and looks good. It is worth noting he had severe problem with metolazone causing critical life- threatening hyponatremia and spironolactone caused hyperkalemia. So for now Continue torsemide alone but we are using super maximal dose of 200 twice daily of torsemide. Also on Low dose Losartan. So far GFR and creatinine is holding stable even after addition of losartan. Labs as below within the next 1-2 months and can be done with 1 of the visit for PT INR check Most recent labs from June 21, 2024 was reviewed and shows a creatinine of 3.3 GFR of 18 normal potassium of 4.5 and normal sodium of 140. As of now no overt anemia of CKD with a hemoglobin of 12. MBD status----last PTH was 241 with a vitamin-D of 41 and both are at goal. PTH all the high at 241is at appropriate level for CKD 4 - CBC WITH WBC DIFFERENTIAL; Future; Expected date: 07/26/2024 - PTH; Future; Expected date: 07/26/2024 - RENAL FUNCTION PANEL; Future; Expected date: 07/26/2024 - PROTEIN/ CREATININE RATIO, URINE; Future; Expected date: 07/26/2024 - MAGNESIUM; Future; Expected date: 07/26/2024 - 25-HYDROXY VITAMIN D; Future; Expected date: 07/26/2024 Pulmonary HTN (HCC) Heart failure, diastolic, due to HTN (HCC) He needs very high dose of diuretics in the only diuretics which did not cause critical electrolytederangements is the loop diuretic torsemide. Currently on super maximal dose of torsemide at 200 twice daily. Will continue same So far addition of low-dose losartan has not changed the GFR so will continue same. Follow Up: Return in about 4 months (around 11/25/2024) for Clinic Visit. | For: Clinic Visit | Check-out note: Labs in 1-2 month David Jaramillo MD documented in this encounter Nursing Notes * Barbara Peña LPN - 07/26/2024 2:50 PM EDT Patient identified by verbal name and date of .Return visit No recent inpatient hospital staysor ED visits No surgery Pt finished Keflex 07/01/24 for toe infection SOB with exertions Denies lowerextremity edema Last labs 06/21/24 Pt does monitor BP at home documented in this encounter Plan of Treatment Upcoming Encounters Date Type Department Care Team (Late st Contact Info) Description 07/27/2024 6:00 AM EDT [facility] [place] [address] [address] [facility] [address] [place] [address] 09/12/2024 3:30 PM EDT Telemedicine Orthopaedics [facility] [address] [place] [address] Obdulio Valero MD [address] [place] [address] 09/27/2024 4:00 PM EDT Office Visit [facility], [place] [address] [phone] Suman Simpson MD [address] [place] [address] 03/13/2025 3:00 PM EDT Office Visit Nephrology, [facility] [address] [place] [address] David Jaramillo MD [address] [facility] [address] [place] [address] Scheduled Orders Name Type Priority Associated Diagnoses Orde r Schedule CBC WITH WBC DIFFERENTIAL Lab Routine CKD (chronic kidney disease) stage 4, GFR 15-29 ml/min (HCC) Expected: 07/26/2024 (Approximate), Expires: 01/22/2025 PTH Lab Routine CKD (chronic kidney disease) stage 4, GFR 15-29 ml/min (HCC) Expected: 07/26/2024 (Approximate), Expires: 01/22/2025 RENAL FUNCTION PANEL Lab Routine CKD (chronic kidney disease) stage 4, GFR 15-29 ml/min (HCC) Expected: 07/26/2024 (Approximate), Expires: 01/22/2025 PROTEIN/ CREATININE RATIO, URINE Lab Routine CKD (chronic kidney disease) stage 4, GFR 15-29 ml/min (HCC) Expected: 07/26/2024 (Approximate), Expires: 01/22/2025 MAGNESIUM Lab Routine CKD (chronic kidney disease) stage 4, GFR 15-29 ml/min (HCC) Expected: 07/26/2024 (Approximate), Expires: 01/22/2025 25-HYDROXY VITAMIN D Lab Routine CKD (chronic kidney disease) stage 4, GFR 15-29 ml/min (HCC) Expected: 07/26/2024 (Approximate), Expires: 01/22/2025 Health Maintenance Due Date Last Done Comments [...] ASSESSMENT COMPLETED IN PAST YEAR FOR COPD 07/26/2025 07/26/2024 DTap/Tdap Vaccines (4 - Td or Tdap) [...] as of this encounter Visit Diagnoses Diagnosis CKD (chronic kidney disease) stage 4, GFR 15-29 ml/min (HCC)- Primary Chronic kidney disease, Stage IV (severe) Pulmonary HTN (HCC) Other chronic pulmonary heart diseases Heart failure, diastolic, due to HTN (HCC) Unspecified hypertensive heart disease with heart failure documented in this encounter Advance Directives * [...] Agents on File Name Relationship Healthcare Agent [facility] Communication Latia Quinones Spouse Health Care Agent Care Teams Money Manager Relationship Specialty Start Date End Date Suman Simpson MD [address] [place] [address] PCP - General 01/26/03 documented as of this encounter
--- OUTSIDE RECORDS SUMMARY | 2024-11-05 21:48 | External Medical Summary | Summary of Care ---
Author Name Unknown Organization [facility] Address [address] [place] [address] Phone [phone] Care Team Providers Care Remote Sensing Scientist Name Role Phone Suman Simpson MD Primary Care Provider [phone]- [phone] Encounter Details Date Type Department Care Team (Late st Contact Info) Description 08/22/2024 Orders Only Outcomes Research Department [address] [place] [address] Michelle Rose CHRA [employer] Research Other*[id number] Allergies Active Allergy Reactions Criticality Noted Date Comments Metolazone 07/29/2021 Severe HYponatremia Morphine Sulfate Other (Please comment) 006 hallucinate Oxycodone Other (Please comment) 07/07/2006 Hallucinate Penicillins 07/21/2011 Hallucinate documented as of this encounter (statuses as of 08/22/2024) Medications Medication Sig Dispensed Refills Start Date [...] as of this encounter (statuses as of 08/22/2024) Active Problems Problem Noted Date Diagnosed Date [...] as of this encounter (statuses as of 08/22/2024) Resolved Problems Problem Noted Date Diagnosed Date Resolved Date Hypertensive chronic kidney disease with stage 5 chronic kidney disease or end stage renal disease 01/27/2023 08/24/2023 Atherosclerosis of [place] 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 09/13/2021 [...] as of this encounter (statuses as of 08/22/2024) Immunizations Name Administration Dates Next Due COVID-19 mRNA, LNP-s, No Pre serve, 2-Dose Series ([employer]) 10/20/2021,02/28/2021,02/07/2021 COVID-19, MRNA-LNP, 23-24, P F, 30 MCG/0.3 mL, 12 YRS AND ABOVE, IM ([facility]) 10/13/2023 Covid-19, Mrna, Lnp-s, Pf, B ivalent, 30 Mcg, IM, 12 yrs and above ([employer]) 09/12/2022 HEPATITIS B VACCINE, RECOMB, 20 MCG/ML, [...] Team (Late st Contact Info) Description 08/24/2024 3:20 PM EDT Anticoagulation Pharmacy, [place] [address] [place] [facility] [address] [place] [facility] [address] [place] [facility] [place] [address] 08/31/2024 3:00 PM EDT Nurse Only Ancillary Department, [place] [address] [place] [facility] [place] [address] [place], Nurse [address] [place] [address] 09/12/2024 3:30 PM EDT Telemedicine Orthopaedics [facility] [address] [facility] [place] [address] Obdulio Valero MD [address] [facility] [place] [address] 09/27/2024 4:00 PM EDT Office Visit [facility] Practice, [place] [address] [facility] [phone] Suman Simpson MD [address] [place] [facility] [place] [address] 03/13/2025 3:00 PM EDT Office Visit Nephrology, [facility] [address] [place] [place] [address] David Jaramillo MD [address] [place] [address] Scheduled Orders Name Type Priority Associated Diagnoses Orde r Schedule MYCODE SUBSEQUENT ADULT Lab Routine [employer] Research Other*[id number] Every 6 Months for 2 Occurrences starting 08/22/2024 until 09/11/2025 Health Maintenance Due Date Last Done Comments [...] ASSESSMENT COMPLETED IN PAST YEAR FOR COPD 08/10/2025 08/10/2024 DTap/Tdap Vaccines (4 - Td or Tdap) [...] as of this encounter Visit Diagnoses Diagnosis [employer] Research Other*[id number] documented in this encounter Advance Directives * [...] Name Relationship Healthcare Agent [facility] Communication Latia Trejo Spouse Health Care Agent Care Teams Remote Sensing Scientist Relationship Specialty Start Date End Date Suman Simpson MD [address] [place], [place] [id number] PCP - General 01/26/03 documented as of this encounter
--- OUTSIDE RECORDS SUMMARY | 2024-11-05 21:48 | External Medical Summary | Summary of Care ---
Author Name Unknown Organization [facility] Address [address] [place] [address] Phone [phone] Care Team Providers Care Director Data Management Name Role Phone Suman Simpson MD Primary Care Provider +1- [phone] Reason for Visit * Reason Comments Dosage Adjustment Via Phone (anticoag Cl inic) Encounter Details Date Type Department Care Team (Latest Contact Info) Description 07/27/2024 6:00 AM EDT Anticoagulation Pharmacy, [place] [address] [place] [address] [facility] [address] [place] [address] Anticoagulation management encounter*; Atrial fibrillation, unspecified type (HCC) Allergies Active Allergy Reactions Criticality Noted Date Comments Metolazone 07/29/2021 Severe HYponatremia Morphine Sulfate Other (Please comment) 006 hallucinate Oxycodone Other (Please comment) 07/07/2006 Hallucinate Penicillins 07/21/2011 Hallucinate documented as of this encounter (statuses as of 07/27/2024) Medications Medication Sig Dispensed Refills Start Date [...] group B, by GOLD 2017 classification ([facility]) Inhale 1 Puff by mouth in the morning. 180 Each 3 4 Active Gabapentin 100 MG Oral Capsule (Neurontin) Take 1 capsule by mouth twice per day. 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 ([facility]) Take 2 tablets in AM and [...] as of this encounter (statuses as of 07/27/2024) Active Problems Problem Noted Date Diagnosed Date [...] as of this encounter (statuses as of 07/27/2024) Resolved Problems Problem Noted Date Diagnosed Date Resolved Date Hypertensive chronic kidney disease with stage 5 chronic kidney disease or end stage renal disease 01/27/2023 08/24/2023 Atherosclerosis of [place] 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 09/13/2021 [...] as of this encounter (statuses as of 07/27/2024) Immunizations Name Administration Dates Next Due COVID-19 mRNA, LNP-s, No Pre serve, 2-Dose Series ([employer] 10/20/2021,02/28/2021,02/07/2021 COVID-19, MRNA-LNP, 23-24, P F, 30 MCG/0.3 mL, 12 YRS AND ABOVE, IM ([employer]) 10/13/2023 Covid-19, Mrna, Lnp-s, Pf, B ivalent, 30 Mcg, IM, 12 yrs and above ([employer] 09/12/2022 HEPATITIS B VACCINE, RECOMB, 20 MCG/ML, [...] of this encounter Progress Notes * Helen Boyer RPh - 07/27/2024 12:49 PM EDT Medication Therapy Disease Management - Anticoagulation Patient: Tre Trejo | : 1940 Subjective Contacts Contact Date/Time Type Contact Phone/Fax 07/27/2024 01:13 PM EDT Phone (Outgoing) Tre Trejo (Self) [phone] (H) Spoke to Patient Patient-Reported Symptoms: Patient Findings Negatives: Signs/symptoms of thrombosis, Signs/symptoms of bleeding, Change in health, Change in alcohol use, Change in activity, Upcoming invasive procedure, Missed doses, Extra doses, Change in medications, Change in diet/appetite, Bruising Objective Current Warfarin Dose As of 07/27/2024 Warfarin maintenance plan: 5 mg (2.5 mg x 2) every Sun, Tue, Fri; 2.5 mg (2.5 mg x 1) all other days INR Result As of 07/27/2024 INR goal: 2.0-3.0 INR used for dosin.2 (07/26/2024) Assessment & Plan Warfarin Plan As of 07/27/2024 Full warfarin instructions: 5 mg every Sun, Tue, Fri; 2.5 mg all other days Next INR check: 08/24/2024 Repeat PT/INR in 4 week(s) Weekly dose: not changed Additional Dosing Information: Description Takes in AM Pt prefers OFS vs GML (venipuncture) Helen Boyer RPh Clinical Pharmacist 07/27/2024, 12:49 PM documented in this encounter Plan of Treatment Upcoming Encounters Date Type Department Care Team (Late st Contact Info) Description 08/24/2024 3:20 PM EDT Anticoagulation Pharmacy, [place] [address] [place] [facility] [place] [address] [place], [facility] [address] [place] [facility] [place] [address] 09/12/2024 3:30 PM EDT Telemedicine Orthopaedics [facility] [address] [place] [address] Obdulio Valero MD [address] [facility] [place] [address] 09/27/2024 4:00 PM EDT Office Visit Family Practice, [place] [address] [place] [facility] [place] [id number] Suman Simpson MD [address] [place] [facility] [place] [address] 03/13/2025 3:00 PM EDT Office Visit Nephrology, [facility] [address] [facility] [place] [place] [address] David Jaramillo MD [address] [facility] [place] [address] Health Maintenance Due Date Last Done Comments [...] on File Name Relationship Healthcare Agent [facility] p Communication Latia Trejo Spouse Health Care Agent Care Teams Director Data Management Relationship Specialty Start Date End Date Suman Simpson MD [address] [place] [id number] PCP - General 01/26/03 documented as of this encounter
--- OUTSIDE RECORDS SUMMARY | 2024-11-05 21:48 | External Medical Summary ---
Author Name Unknown Address Unknown Organization K09:[facility] [place] [address] Laboratory Report Ordering Provider Test Date Status SALUDSHALINIKenia 07/26/2024 15:16:43 Final Warfarin Therapy
INR: 2 .0-3.0 conventional anticoagulation
INR: 2.5- 3.5 high intensity anticoagulation Observation Date Value Abnormality Reference (Units ) Status PT 07/26/2024 15:16:43 24.5 Above high normal 11 .6-15.2 (seconds) Final INR 07/26/2024 15:16:43 2.2 Above high normal 0. 8-1.2 Final Performing Location [facility] [place] [address]
--- OUTSIDE RECORDS SUMMARY | 2024-11-05 21:48 | External Medical Summary | Summary of Care ---
Author Name Unknown Organization [facility] Address [address] [place] [address] Phone [phone] Care Team Providers Care Calender Let Off Helper Name Role Phone Suman Simpson MD Primary Care Provider +1- [phone] Reason for Visit * Reason Comments Acute Patient is here toda y due to cold/flu symptoms. Patient is experiencing headache, earache, dry cough, sore throat, fever, chills, sneezing, and is having shallow breathing. Symptoms have been occurring for a week. A home covid test was done, results negative.Patient is also experiencing issues with bowel movements; patient states the urge to go comes on quickly.Patient uses oxygen at home but would like to see about getting a portable machine. 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) Allergies Active Allergy Reactions Criticality Noted Date Comments Metolazone 07/29/2021 Severe HYponatremia Morphine Sulfate Other (Please comment) 006 hallucinate Oxycodone Other (Please comment) 07/07/2006 Hallucinate Penicillins 07/21/2011 Hallucinate documented as of this encounter (statuses as of 08/10/2024) Medications Medication Sig Dispensed Refills Start Date [...] s:COPD, group B, by GOLD 2017 classification ([facility]) Inhale 1 Puff by mouth [...] Additional Information Patient not taking.Reported on 08/10/2024 Cefdinir 300 MG Oral Capsule ([employer]mn[employer]f)Indication s:COPD exacerbation ([facility]) Take 1 Capsule by mouth daily for 7 days. 7 Capsule 4 08/17/20 24 Active predniSONE 20 MG Oral Tablet (Deltasone)Indicati ons:COPD exacerbation (HCC) Take 2 Tablets by mouth in the morning for 5 days. 10 Tablet 4 08/15/20 24 Active Ondansetron 4 MG Oral Tablet Disintegrating (Zofran)Indications :Nausea Place 1 Tablet on tongue every 8 hours as needed for Nausea. dissolve on tongue. 20 Tablet 4 Active documented as of this encounter (statuses as of 08/10/2024) Active Problems Problem Noted Date Diagnosed Date [...] as of this encounter (statuses as of 08/10/2024) Resolved Problems Problem Noted Date Diagnosed Date Resolved Date Hypertensive chronic kidney disease with stage 5 chronic kidney disease or end stage renal disease 01/27/2023 08/24/2023 Atherosclerosis of [place] 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 09/13/2021 [...] as of this encounter (statuses as of 08/10/2024) Immunizations Name Administration Dates Next Due COVID-19 mRNA, LNP-s, No Pre serve, 2-Dose Series ([employer]) 10/20/2021,02/28/2021,02/07/2021 COVID-19, MRNA-LNP, 23-24, P F, 30 MCG/0.3 mL, 12 YRS AND ABOVE, IM ([facility]) 10/13/2023 Covid-19, Mrna, Lnp-s, [...] Sign Reading Time Taken Comments Blood Pressure 130/82 08/10/2024 9:17 AM EDT Pulse 78 08/10/2024 9:17 AM EDT Temperature 36.1 C (96.9 F) 08/10/2024 9:17 AM ED T Respiratory Rate 16 08/10/2024 9:17 AM EDT Oxygen Saturation 93% 08/10/2024 9:17 AM EDT Inhaled Oxygen Concentration - - Weight 98.3 kg (216 lb 11.2 oz) 08/10/2024 9:17 AM EDT Height 175.3 cm (5' 9") 08/10/2024 9:17 AM EDT Body Mass Index 32 08/10/2024 9:17 AM EDT documented in this encounter Functional [...] Progress Notes * Greg Rodrigues MD - 08/10/2024 9:35 AM EDT Images from the original note were not included. Assessment and Plan 1. COPD exacerbation ([facility]) Treat as a COPD exacerbation likely as a result of viral illness. Treat with cefdinir 300 mg once daily based on renal function along with prednisone 40 mg daily. He can continue [id number] medications for symptom control. Monitor blood sugars given type 2 diabetes though his last A1c showed good control at 7.2 and home blood sugars has been at goal over the last week. - Cefdinir 300 MG Oral Capsule (Omnicef); Take 1 Capsule by mouth daily for 7 days. Dispense: 7 Capsule; Refill: 0 - predniSONE 20 MG Oral Tablet (Deltasone); Take 2 Tablets by mouth in the morning for 5 days. Dispense: 10 Tablet; Refill: 0 2. COPD, group B, by GOLD 2017 classification ([facility]) COPD on oxygen at night. I think it is reasonable to get an updated 6 minute walk test once patienthas recovered from his acute illness. If oxygen desaturations present he may qualify for portable oxygen concentrator. - PULMONARY STRESS TESTING 3. Nausea Zofran as needed for nausea. - Ondansetron 4 MG Oral Tablet Disintegrating (Zofran); Place 1 Tablet on tongue every 8 hours as needed for Nausea. dissolve on tongue. Dispense: 20 Tablet; Refill: 0 4. Type 2 diabetes mellitus with hemoglobin A1c goal of less than 8.0% ([facility]) A1c 7.2. No changes to diabetes regimen today. Monitor blood sugars on steroids. 5. GUALLPA (dyspnea on exertion) Chronic with exacerbation during acute illness. Walk study once recovered. 6. 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 BP at goal. Wrap-Up Follow up in a couple of weeks for 6 minute walk test. History of Present Illness The patient is an 84-year-old male with past medical history of type 2 diabetes, CKD stage 5 not ondialysis, COPD group B by gold 2017 classification, dyspnea on exertion, hypertension, GERD, thrombocytopenia, rheumatoid arthritis who presents for follow up. 84-year-old male presents with one-week of fatigue, cough, congestion, worsening shortness of breath with exertion. Appetite is reasonable. He did COVID test at home which resulted negative. Vital signs in office today are within normal limits. Oxygen saturation is 93% on room air. The patient doesuse nighttime oxygen at home due to COPD. He has been using [place] on an as needed basis to help with symptoms. Patient asking about oxygen throughout the day given exertional shortness of breath. His last 6 minute walk test was done in May 2013 which did not show desaturations. Physical Exam Vitals: 08/10/24 0917 Temp: 36.1 C (96.9 F) Pulse: 78 Resp: 16 SpO2: 93% BP: 130/82 BMI: 31.99 Physical Exam Physical Exam Vitals reviewed. Constitutional: General: He is not in acute distress. Comments: Using wheelchair for mobility. HENT: Right Ear: Tympanic membrane normal. There is no impacted cerumen. Left Ear: Tympanic membrane normal. There is no impacted cerumen. Cardiovascular: Rate and Rhythm: Normal rate and regular rhythm. Heart sounds: No murmur heard. Pulmonary: Comments: No increased work of breathing. Somewhat diminished breath sounds in all 4 quadrants without any focal findings. Few scattered wheezes. Musculoskeletal: Cervical back: Neck supple. Lymphadenopathy: Cervical: No cervical adenopathy. Neurological: General: No focal deficit present. Mental Status: He is alert. This note has been completed in part utilizing [employer] Speech Voice Recognition Software. Due to technical limitations of the software, grammatical errors, random word insertions, prounoun errors, and incomplete sentences may occur. Any formal questions or concerns about the content, text, or information contained within the body of this dictation should be directly addressed to the provider for clarification. documented in this encounter Nursing Notes * BenjaLinda MED ASSIST - 08/10/2024 9:27 AM EDT The patient has been properly identified by confirmation of name and date of . Chief Complaint Patient presents with Acute Patient is here today due to cold/flu symptoms. Patient is experiencing headache, earache, dry cough, sore throat, fever, chills, sneezing, and is having shallow breathing. Symptoms have been occurring for a week. A home covid test was done, results negative. Patient is also experiencing issues with bowel movements; patient states the urge to go comes on quickly. Patient uses oxygen at home but would like to see about getting a portable machine. documented in this encounter Plan of Treatment Upcoming Encounters Date Type Department Care Team (Late st Contact Info) Description 08/24/2024 3:20 PM EDT Anticoagulation Pharmacy, [address] [address] [facility] [address] [place] [address] 08/31/2024 3:00 PM EDT Nurse Only Ancillary Department, [address] [address] [place], Nurse [address] [place] [address] 09/12/2024 3:30 PM EDT Telemedicine Orthopaedics [facility] [address] [place] [address] Obdulio Valero MD [address] [place] [address] 09/27/2024 4:00 PM EDT Office Visit [facility], [address] [address] Suman Simpson MD [address] [place] [address] 03/13/2025 3:00 PM EDT Office Visit Nephrology, [facility] [address] [facility], [place] [address] David Jaramillo MD [address] [facility], [place] [address] Scheduled Orders Name Type Priority Associated Diagnoses Orde r Schedule PULMONARY STRESS TESTING Procedures Routine COPD, group B, by GOLD 2017 classification ([facility]) Ordered: 08/10/2024 Health Maintenance Due Date Last Done Comments [...] as of this encounter Visit Diagnoses Diagnosis COPD exacerbation (HCC)- Primary Obstructive chronic bronchitis with exacerbation COPD, group B, by GOLD 2017 classification ([facility]) Nausea Nausea alone Type 2 diabetes mellitus with hemoglobin A1c goal of less than 8.0% ([facility]) GUALLPA (dyspnea on exertion) Other dyspnea and respiratory abnormality 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
--- OUTSIDE RECORDS SUMMARY | 2024-11-05 21:48 | External Medical Summary | Summary of Care ---
Author Name Unknown Organization [facility] Address [address] [place] [address] Phone [phone] Care Team Providers Care Low Vision Therapist Name Role Phone Suman Simpson MD Primary Care Provider +1- [phone] Reason for Visit * Reason Onset Date Comments [facility]: Maintenance 08/22/2024 Encounter Details Date Type Department Care Team (Late st Contact Info) Description 08/22/2024 Telephone [facility], [address] [address] [place], [place] [address] [place] [address] [facility]: Maintenance Allergies Active Allergy [...] B, by GOLD 2017 classification ([facility]) Inhale 1 Puff by mouth in the morning. 180 Each 3 4 Active Gabapentin 100 MG Oral Capsule (Neurontin) Take 1 capsule by mouth twice per day. 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 ([facility]) Take 2 tablets in AM and 2 [...] stage renal disease 01/27/2023 08/24/2023 Atherosclerosis of [place] 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 09/13/2021 [...] mRNA, LNP-s, No Pre serve, 2-Dose Series ([facility]) 10/20/2021,02/28/2021,02/07/2021 COVID-19, MRNA-LNP, 23-24, P F, 30 MCG/0.3 mL, 12 YRS AND ABOVE, IM ([facility]) 10/13/2023 Covid-19, Mrna, Lnp-s, Pf, B ivalent, 30 Mcg, IM, 12 yrs and above ([facility]) 09/12/2022 HEPATITIS B VACCINE, RECOMB, 20 MCG/ML, [...] encounter Miscellaneous Notes * Telephone Encounter - Marj Osman OSA - 08/22/2024 3:24 PM EDT Per request from RNCM to sent pt a [facility] letter. No one has been able to contact pt to see if he is still interest in [facility]. documented in this encounter Plan of Treatment Upcoming Encounters Date Type Department Care Team (Late st Contact Info) Description 08/24/2024 3:20 PM EDT Anticoagulation Pharmacy, [place] [address] [place] [facility] [place] [address] [facility] [address] [facility] [address] 08/31/2024 3:00 PM EDT Nurse Only Ancillary Department, [place] [address] [place] [facility] [place] [address] Alex Nurse [address] [facility] [place] [address] 09/12/2024 3:30 PM EDT Telemedicine Orthopaedics [address] [place] [address] Obdulio Valero MD [address] [place] [address] 09/27/2024 4:00 PM EDT Office Visit [facility] [address] [place] [facility] [place] [phone] Suman Simpson MD [address] [place] [address] 03/13/2025 3:00 PM EDT Office Visit Nephrology, [facility] [address] [place] [address] David Jaramillo MD [address] [facility] [place], [place] [address] Health Maintenance Due Date Last Done Comments [...] Ficlesliederrick Spouse Health Care Agent Care Teams Low Vision Therapist Relationship Specialty Start Date End Date Suman Simpson MD [address] [place] [address] PCP - General 01/26/03 documented as of this encounter
--- OUTSIDE RECORDS SUMMARY | 2024-11-05 21:48 | External Medical Summary | Summary of Care ---
Author Name Unknown Organization [facility] Address [address] [place] [address] Phone [phone] Care Team Providers Care Manager Regional Sales Name Role Phone Suman Simpson MD Primary Care Provider +1- [phone] Encounter Details Date Type Department Care Team (Late st Contact Info) Description 08/18/2024 Population Health External Data Unspecified Department Allergies [...] than 8.0% ([facility]) Take 1 Tablet by mouth in the [...] than 8.0% ([facility]) Use up to 4 times a day [...] 2017 classification ([facility]) Inhale 1 Puff by mouth in [...] stage renal disease 01/27/2023 08/24/2023 Atherosclerosis of 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 09/13/2021 [...] mRNA, LNP-s, No Pre serve, 2-Dose Series ([employer]) 10/20/2021,02/28/2021,02/07/2021 COVID-19, MRNA-LNP, 23-24, P F, 30 MCG/0.3 mL, 12 YRS AND ABOVE, IM ([facility] 10/13/2023 Covid-19, Mrna, Lnp-s, Pf, B ivalent, 30 Mcg, IM, 12 yrs and above ([employer]) 09/12/2022 HEPATITIS B VACCINE, RECOMB, 20 MCG/ML, [...] Description 08/24/2024 3:20 PM EDT Anticoagulation Pharmacy, [place] [address] [facility] [place] [address] [place], [facility] [address] [facility] [place] [address] 08/31/2024 3:00 PM EDT Nurse Only Ancillary Department, [place] [address] [facility] [address] [place], Nurse [address] [place] [address] 09/12/2024 3:30 PM EDT Telemedicine Orthopaedics [facility] [address] [facility] [place] [address] Obdulio Valero MD [address] [facility] [place] [address] 09/27/2024 4:00 PM EDT Office Visit Family Practice, [place] [address] [facility] [phone] Suman Simpson MD [address] [facility] [address] 03/13/2025 3:00 PM EDT Office Visit Nephrology, [facility] [address] [place] [address] David Jaramillo MD [address] [place] [address] Health Maintenance Due Date Last Done Comments [...] Agents on File Name Relationship Healthcare Agent [facility] Communication Latia Trejo Spouse Health Care Agent Care Teams Manager Regional Sales Relationship Specialty Start Date End Date Suman Simpson MD [address] [place] [address] PCP - General 01/26/03 documented as of this encounter
--- OUTSIDE RECORDS SUMMARY | 2024-11-05 21:48 | External Medical Summary | Summary of Care ---
Author Name Unknown Organization [facility] Address [address] [place] [address] Phone [phone] Care Team Providers Care Supervisor Coating Name Role Phone Suman Simpson MD Primary Care Provider +1- [phone] Reason for Visit * Reason Onset Date Comments [facility]: Maintenance 07/25/2024 Encounter Details Date Type Department Care Team (Late st Contact Info) Description 07/25/2024 Telephone [facility], [facility] [address] [place] [address] Ayla Hoyos, RN [address] [place] [address] [facility]: Maintenance Allergies Active Allergy Reactions Criticality Noted Date Comments Metolazone 07/29/2021 Severe HYponatremia Morphine Sulfate Other (Please comment) 006 hallucinate Oxycodone Other (Please comment) 07/07/2006 Hallucinate Penicillins 07/21/2011 Hallucinate documented as of this encounter (statuses as of 07/25/2024) Medications Medication Sig Dispensed Refills Start Date [...] in the morning. 14 Each 4 Active Sennosides-Docusate Sodium 8.6-50 MG Oral Tablet (Senokot-S)Indicati [...] s:COPD, group B, by GOLD 2017 classification ([facility]) Inhale 1 Puff by mouth in the morning. 180 Each 3 4 Active Gabapentin 100 MG Oral Capsule (Neurontin) Take 1 capsule by mouth twice per day. 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 ([facility]) Take 2 tablets in [...] as of this encounter (statuses as of 07/25/2024) Active Problems Problem Noted Date Diagnosed Date [...] as of this encounter (statuses as of 07/25/2024) Resolved Problems Problem Noted Date Diagnosed Date Resolved Date Hypertensive chronic kidney disease with stage 5 chronic kidney disease or end stage renal disease 01/27/2023 08/24/2023 Atherosclerosis of [place] 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 09/13/2021 [...] as of this encounter (statuses as of 07/25/2024) Immunizations Name Administration Dates Next Due COVID-19 mRNA, LNP-s, No Pre serve, 2-Dose Series ([employer]) 10/20/2021,02/28/2021,02/07/2021 COVID-19, MRNA-LNP, 23-24, P F, 30 MCG/0.3 mL, 12 YRS AND ABOVE, IM ([employer]) 10/13/2023 Covid-19, Mrna, Lnp-s, Pf, B ivalent, 30 Mcg, IM, 12 yrs and above (Pfizer) 09/12/2022 Hepatitis B Vaccine, Recombi nant, Adjuvanted, 20 mcg/mL (Heplisav-B) 09/19/2023 Pneumococcal Conjugate Vacc, 13 Valent (Prevnar) [...] Telephone Encounter - Ayla Hoyos RN - 07/25/2024 10:51 AM EDT Telephone call to pt to see if pt still interested in [facility] services. No answer. LMOM with return call back numbers. documented in this encounter Plan of Treatment Upcoming Encounters Date Type Department Care Team (Late st Contact Info) Description 07/26/2024 2:40 PM EDT Office Visit Nephrology, [facility] [address] [place] [address] David Jaramillo MD [address] [place] [address] 07/26/2024 5:30 PM EDT Anticoagulation Pharmacy, [place] [address] [place] [place] [address] [facility] [address] [place] [address] 09/12/2024 3:30 PM EDT Telemedicine Orthopaedics [facility] [address] [place] [address] Obdulio Valero MD [address] [place] [address] 09/27/2024 4:00 PM EDT Office Visit Family [facility], [place] [address] [place] [place] [id number] Suman Simpson MD [address] [place] [address] Health Maintenance Due Date Last Done Comments Adult Wellness Visit 2007 COVID-19 Vaccine ( - 2022-24 season) 2024 10/13/2023, 09/12/2022, 10/20/2021, Additional history exists Influenza Vaccine (FLU shot) (#1) 2024 08/12/2023, 08/12/2023, 09/19/2022, Additional history exists HbA1c 09/06/2024 03/07/2024, 12/31, 05/12/2023, Additional history exists Diabetic Eye Exam 04/01/2025 04/01/2024, , 03/30/2023, Additional history exists Depression Screening 06/21/2025 06/21/2024 Diabetic Foot Exam 06/21/2025 06/21/2024, 0 04/16/2023, 06/14/2020, Additional history exists O2 ASSESSMENT COMPLETED IN PAST YEAR FOR COPD 06/21/2025 06/21/2024 TSH 06/21/2025 06/21/2024, 04/30, 12/27/2021, Additional history exists Zoster Vaccines (2 of 3) 06/21/2025 01/28/2013 Pos tponed from 03/25/2013 (Patient Declined After Education) DTaP,Tdap,and Td Vaccines (4 - Td or Tdap) 01/13/2033 01/13/2023, 01/13/2023, 01/04/2013, Additional history exists Pneumococcal Vaccine: 65+ Years Completed 08/02/2015, 08/31/2012, 10/25/2002 Alpha-1 Antitrypsin Completed 09/06/2018 RETIRED - COLONOSCOPY-EVERY 5 YRS AGES 18-100 Discontinued 09/04/2023, 01/08/2010 Hepatitis B Vaccine Discontinued 09/19/2023 Nephrology Referral Discontinued 03/07/2024, 01/24/2014, 07/16/2011, Additional history exists HPV (Gardasil) [...] Spouse Health Care Agent Care Teams Supervisor Coating Relationship Specialty Start Date End Date Suman Simpson MD [address] [place] [address] PCP - General 01/26/03 documented as of this encounter
--- OUTSIDE RECORDS SUMMARY | 2024-11-05 21:48 | External Medical Summary | Summary of Care ---
Author Name Unknown Organization [facility] Address [address] [place] [address] Phone [phone] Care Team Providers Care Purchasing Director Name Role Phone Suman Simpson MD Primary Care Provider +1- [phone] Reason for Visit * Reason Comments Outpatient Testing Encounter Details Date Type Department Care Team (Late st Contact Info) Description 07/26/2024 3:20 PM EDT Laboratory Laboratory [facility] [address] [place] [id number] [place], [address] [place] [address] Atrial fibrillation, unspecified type (HCC); Anticoagulation management encounter Allergies Active Allergy Reactions Criticality Noted Date [...] B, by GOLD 2017 classification ([facility]) Inhale 1 Puff by mouth in the morning. 180 Each 3 4 Active Gabapentin 100 MG Oral Capsule (Neurontin) Take 1 capsule by mouth twice per day. 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 ([facility]) Take 2 tablets in AM and [...] stage renal disease 01/27/2023 08/24/2023 Atherosclerosis of [place] 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 09/13/2021 [...] mRNA, LNP-s, No Pre serve, 2-Dose Series ([employer]) 10/20/2021,02/28/2021,02/07/2021 COVID-19, MRNA-LNP, 23-24, P F, 30 MCG/0.3 mL, 12 YRS AND ABOVE, IM ([employer] [employer]) 10/13/2023 Covid-19, Mrna, Lnp-s, Pf, B ivalent, 30 Mcg, IM, 12 yrs and above ([employer]) 09/12/2022 HEPATITIS B VACCINE, RECOMB, 20 MCG/ML, [...] Description 07/27/2024 6:00 AM EDT Anticoagulation Pharmacy, [place] [address] [place] [place] [address] [facility] [address] [facility] [address] 09/12/2024 3:30 PM EDT Telemedicine Orthopaedics [facility] [address] [place] [address] Obdulio Valero MD [address] [place] [address] 09/27/2024 4:00 PM EDT Office Visit Family [facility], [place] [address] [facility] [address] Suman Simpson MD [address] [place] [facility] [place] [address] 03/13/2025 3:00 PM EDT Office Visit Nephrology, [facility] [address] [place] [address] David Jaramillo MD [address] [place] [address] Pending Results Name Type Priority Associated Diagnoses Date /Time PT INR Lab Routine Atrial fibrillation, unspecified type (HCC) Anticoagulation management encounter 07/26/2024 3:16 PM EDT Health Maintenance Due Date Last Done Comments Adult Wellness Visit 2007 COVID-19 Vaccine (2022-24 season) 2024 10/13/2023, 09/12/2022, 10/20/2021, Additional history [...] management encounter Encounter for therapeutic drug monitoring documented in this encounter Advance Directives * [...] on File Name Relationship Healthcare Agent [facility] Communication Latia Margaret Trejo Spouse Health Care Agent Care Teams Purchasing Director Relationship Specialty Start Date End Date Suman Simpson MD [address] [place] [facility] [place] [address] PCP - General 01/26/03 documented as of this encounter
--- OUTSIDE RECORDS SUMMARY | 2024-11-05 21:48 | External Medical Summary ---
Author Name Unknown Address Unknown Organization K01:[facility] [place] [address] [place] [address] Laboratory Report Ordering Provider Test Date Status LIZET HOUSTON 08/23/2024 11:37:09 Final Observation Date Value Abnormality Reference (Units ) Status MYCODE SPECIMEN-SST 08/23/2024 11:37:09 Freezing of extracted DNA, whole blood and/or serum. Final Performing Location LABORATORY C - [address] [place] [address]
--- OUTSIDE RECORDS SUMMARY | 2024-11-05 21:48 | External Medical Summary | Summary of Care ---
Author Name Unknown Organization [facility] Address [address] [place] [address] Phone [phone] Care Team Providers Care Regional Merchandising Manager Name Role Phone Suman Simpson MD Primary Care Provider +1- [phone] Reason for Visit * Reason Comments Follow Up Bilateral shoulder Pain Encounter Details Date Type Department Care Team (Late st Contact Info) Description 07/19/2024 2:00 PM EDT Office Visit Orthopaedics [facility] [address] [employer] [address] [place] [address] Obdulio Valero MD [address] [place] [address] Glenohumeral arthritis, right*; Glenohumeral arthritis, left Allergies Active Allergy Reactions Criticality Noted Date Comments Metolazone 07/29/2021 Severe HYponatremia Morphine Sulfate Other (Please comment) 006 hallucinate Oxycodone Other (Please comment) 07/07/2006 Hallucinate Penicillins 07/21/2011 Hallucinate documented as of this encounter (statuses as of 07/19/2024) Medications Medication Sig Dispensed Refills Start Date [...] B, by GOLD 2017 classification ([facility]) Inhale 1 Puff by mouth in the morning. 180 Each 3 4 Active Gabapentin 100 MG Oral Capsule (Neurontin) Take 1 capsule by mouth twice per day. 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 85 g 1 4 Active Hospital, Clinic, or Other Facility Administered Medication Ordered Dose Route Frequency Start Date End Date Status sodium hyaluronate (Gelsyn-3) 16.8 MG/2ML inj 16.8 mgIndications:Glenohumeral arthritis, right 16.8 mg IX ONCE 07/19/2024 07/19/2024 Ended sodium hyaluronate (Gelsyn-3) 16.8 MG/2ML inj 16.8 mgIndications:Glenohumeral arthritis, left 16.8 mg IX ONCE 07/19/2024 07/19/2024 Ended documented as of this encounter (statuses as of 07/19/2024) Active Problems Problem Noted Date Diagnosed Date [...] as of this encounter (statuses as of 07/19/2024) Resolved Problems Problem Noted Date Diagnosed Date Resolved Date Hypertensive chronic kidney disease with stage 5 chronic kidney disease or end stage renal disease 01/27/2023 08/24/2023 Atherosclerosis of [place] 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 09/13/2021 [...] as of this encounter (statuses as of 07/19/2024) Immunizations Name Administration Dates Next Due COVID-19 mRNA, LNP-s, No Pre serve, 2-Dose Series ([employer]) 10/20/2021,02/28/2021,02/07/2021 COVID-19, MRNA-LNP, 23-24, P F, 30 MCG/0.3 mL, 12 YRS AND ABOVE, IM ([employer]) 10/13/2023 Covid-19, Mrna, Lnp-s, Pf, B ivalent, 30 Mcg, IM, 12 yrs and above ([employer]) 09/12/2022 Hepatitis B Vaccine, Recombi nant, Adjuvanted, [...] Influenza, Trivalen t, Adjuvanted, 65+ yrs 12/01/2019 TD - Tetanus/Diptheria (ADULT) 10/25/2002,1988 TD, [...] Progress Notes * Obdulio Valero MD - 07/19/2024 1:59 PM EDT Here for procedure only visit. Presents for bilateral viscosupplementation of the glenohumeral joint. PROCEDURE NOTE: SHOULDER GLENOHUMERAL JOINT INJECTION (Gelsyn #3 BL) Laterality: Bilateral Time out: Prior to [...] infection. Patient also advised regarding post-procedural pain. Obdulio Valero MD Sports Medicine Primary Care Orthopaedics [facility] [address] [facility] [place] [address] documented in this encounter Nursing Notes * Yumiko Steinberg LPN - 07/19/2024 2:00 PM EDT F/u Bilateral shoulder THIRD of a series Gelsyn injections L shoulder pain 08/09 R shoulder pain 4/10 Pt accompanied by his daughter today Mima Bullard PAOLO documented in this encounter Plan of Treatment Upcoming Encounters Date Type Department Care Team (Late st Contact Info) Description 07/26/2024 2:40 PM EDT Office Visit Nephrology, [facility] [address] [facility] [place] [address] David Jaramillo MD [address] [facility] [place] [address] 07/26/2024 5:30 PM EDT Anticoagulation Pharmacy, [place] [address] [place] [address] [facility] [address] [place] [address] 09/12/2024 3:30 PM EDT Telemedicine Orthopaedics [facility] [address] [facility] [place] [address] Obdulio Valero MD [address] [facility] [place] [address] 09/27/2024 4:00 PM EDT Office Visit [place] [address] [place] [address] Suman Simpson MD [address] [place] [address] Health Maintenance Due Date Last Done Comments [...] Procedure Name Priority Date/Time Associated Diagnosis Comments POINT OF CARE US MAJOR JOINT INJECTION, ORTHO Routine 07/19/2024 9:59 PM EDT Glenohumeral arthritis, right Glenohumeral arthritis, left documented in this encounter Results * POINT OF CARE US MAJOR JOINT INJECTION, ORTHO (07/19/2024 9:59 PM EDT) Anatomical Region Laterality Modality Musculoskeletal Radiographic Carol ging 07/19/2024 9:59 PM EDT Narrative 07/19/2024 2:22 PM EDT Patient Name: WOJCIECH QUINONES : 1940 (84y) Male Performing Provider: Obdulio Valero (digitally signed Jul 19, 2024 14:22 EDT) Attending: Obdulio Valero (digitally signed Jul 19, 2024 14:22 EDT) [Impression] : PROCEDURE NOTE: SHOULDER GLENOHUMERAL JOINT INJECTION (Gelsyn #3 BL) Laterality: Bilateral Time out: Prior to [...] for fever, warmth, unusual redness at injection site for potential infection. Patient also advised regarding post-procedural pain. Procedure Note Obdulio Valero MD - 07/19/2024 Patient Name: WOJCIECH QUINONES : 1940 (84y) Male Performing Provider: Obdulio Valero (digitally signed Jul 19, 2024 14:22EDT) Attending: Obdulio Valero (digitally signed Jul 19, 2024 14:22 EDT) [Impression] : PROCEDURE NOTE: SHOULDER GLENOHUMERAL JOINT INJECTION(Gelsyn #3 BL) Laterality: Bilateral Time out: Prior to injection, a time out was called to confirm the administration ofappropriate medicine, patient name, procedure and confirm to the best ofour ability and knowledge the presence of any necessary risks andbenefits. Patient verbalized understanding. Ultrasound required due to patient size (obese) and location of jointbeing too deep to accurately inject without ultrasound guidance Ultrasound utilized to guide injection. During the procedure, the needle was visualized in plane and was advancedwith continuous ultrasound guidance to the appropriate anatomical landmarkas described in the procedure. Sterile technique applied using gloves, chlorhexadine, and alcoholswabs. Ethyl chloride spray for local anesthetic. Glenohumeral joint injected using 2.5 inch, 22 gauge needle. Injected withGelsyn. Patient tolerated procedure with no significant bleeding or adversereaction. Patient instructed to call or return to clinic for fever, warmth, unusualredness at injection site for potential infection. Patient also advisedregarding post- procedural pain. Obdulio Valero MD RAD ULTRASO UND documented in this encounter Visit Diagnoses Diagnosis Glenohumeral arthritis, right- Primary Glenohumeral arthritis, left documented in this encounter Administered Medications Inactive Administered Medications - up to 3 most recent administrations Medication Order MAR Action Action Date Dose Rate Site sodium hyaluronate (Gelsyn-3) 16.8 MG/2ML inj 16.8 mg 16.8 mg, Intra-Articular, ONCE, On Thu07/19/24 at 1445, For 1 dose Given 07/19/2024 2:38 PM EDT 16.8 mg Shoulder Right sodium hyaluronate (Gelsyn-3) 16.8 MG/2ML inj 16.8 mg 16.8 mg, Intra-Articular, ONCE, On Thu07/19/24 at 1445, For 1 dose Given 07/19/2024 2:38 PM EDT 16.8 mg Shoulder Left documented [...] Agent [facility] Communication Latia Quinones Spouse Health Care Agent Care Teams Regional Merchandising Manager Relationship Specialty Start Date End Date Suman Simpson MD [address] [place] [address] PCP - General 01/26/03 documented as of this encounter
--- OUTSIDE RECORDS SUMMARY | 2024-11-05 21:49 | External Medical Summary | Summary of Care ---
Author Name Unknown Organization [facility] Address [address] [place] [address] Phone [phone] Care Team Providers Care Biblical Studies Professor Name Role Phone Suman Simpson MD Primary Care Provider +1- [phone] Reason for Visit * Reason Comments Follow Up Bilateral shoulder Pain Encounter Details Date Type Department Care Team (Late st Contact Info) Description 07/19/2024 2:00 PM EDT Office Visit Orthopaedics [facility] [address] [place] [address] Obdulio Valero MD [address] [place] [address] Glenohumeral arthritis, right*; Glenohumeral arthritis, left Allergies [...] s:COPD, group B, by GOLD 2017 classification ([facility]) Inhale 1 Puff by mouth in the morning. 180 Each 3 4 Active Gabapentin 100 MG Oral Capsule (Neurontin) Take 1 capsule by mouth twice per day. 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 ([facility]) Take 2 tablets in AM and [...] arthritis, right 16.8 mg IX ONCE 07/19/2024 07/20/2024 Active sodium hyaluronate (Gelsyn-3) 16.8 MG/2ML inj 16.8 mgIndications:Glenohumeral arthritis, left 16.8 mg IX ONCE 07/19/2024 07/20/2024 Active documented as of this encounter (statuses [...] stage renal disease 01/27/2023 08/24/2023 Atherosclerosis of [place] 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 09/13/2021 [...] mRNA, LNP-s, No Pre serve, 2-Dose Series ([employer]) 10/20/2021,02/28/2021,02/07/2021 COVID-19, MRNA-LNP, 23-24, P F, 30 MCG/0.3 mL, 12 YRS AND ABOVE, IM ([employer]) 10/13/2023 Covid-19, Mrna, Lnp-s, Pf, B ivalent, 30 Mcg, IM, 12 yrs and above ([employer]) 09/12/2022 Hepatitis B Vaccine, Recombi nant, Adjuvanted, [...] Valero MD Sports Medicine Primary Care Orthopaedics [facility] [address] [place] [address] documented in this encounter Nursing Notes * Yumiko Steinberg LPN - 07/19/2024 2:00 PM EDT F/u Bilateral shoulder THIRD of a series Gelsyn injections L shoulder pain 08/09 R shoulder pain /10 Pt accompanied by his daughter today Mima Bullard PAOLO documented in this encounter Plan of Treatment Upcoming Encounters Date Type Department Care Team (Late st Contact Info) Description 07/19/2024 2:30 PM EDT Imaging Radiology [address] [address] Arrived 07/26/2024 2:40 PM EDT Office Visit Nephrology, [facility] [address] [facility] [place] [address] David Jaramillo MD [address] [facility] [place] [address] 07/26/2024 5:30 PM EDT Anticoagulation Pharmacy, [place] [address] [place] [address] [facility] [address] [place] [address] 09/12/2024 3:30 PM EDT Telemedicine Orthopaedics [facility] [address] [place] [address] Obdulio Valero MD [address] [facility] [place] [address] 09/27/2024 4:00 PM EDT Office Visit [place] [address] [address] [address] Suman Simpson MD [address] [place] [address] Health Maintenance Due Date Last Done [...] Agents on File Name Relationship Healthcare Agent [facility] Communication Latiasuresh [place] Spouse Health Care Agent Care Teams Biblical Studies Professor Relationship Specialty Start Date End Date Suman Simpson MD [address] [place] [address] PCP - General 01/26/03 documented as of this encounter
--- OUTSIDE RECORDS SUMMARY | 2024-11-05 21:49 | External Medical Summary | Summary of Care ---
Author Name Unknown Organization [facility] Address [address] [place] [address] Phone [phone] Care Team Providers Care Hardware Design Engineer Name Role Phone Suman Simpson MD Primary Care Provider +1- [phone] Encounter Details Date Type Department Care Team (Late st Contact Info) Description 06/24/2024 Telephone Merged With [facility] [address] [place] [address] MarchGreg MD [address] [place] [address] Allergies Active Allergy Reactions Criticality Noted Date Comments Metolazone 07/29/2021 Severe HYponatremia Morphine Sulfate Other (Please comment) 006 hallucinate Oxycodone Other (Please comment) 07/07/2006 Hallucinate Penicillins 07/21/2011 Hallucinate documented as of this encounter (statuses as of 06/24/2024) Medications Medication Sig Dispensed Refills Start Date [...] group B, by GOLD 2017 classification ([facility]) Inhale 1 Puff by mouth in the morning. 180 Each 3 4 Active Gabapentin 100 MG Oral Capsule (Neurontin) Take 1 capsule by mouth twice per day. 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 360 Tablet 3 4 Active Warfarin Sodium 2.5 MG Oral Tablet (Jantoven) TAKE 1-2 TABLETS BY MOUTH DAILY. According to anticoagulation clinic 180 Tablet 3 4 Active Multiple Vitamins Oral Tablet Take 1 Tablet by mouth in the morning. 3 Active Cephalexin 500 MG Oral CapsuleIndications: Diabetic ulcer of toe of right foot associated with type 2 diabetes mellitus, unspecified ulcer stage ([facility]) Take 1 Capsule by mouth in the morning and 1 Capsule before bedtime. Do all this for 10 days. 20 Capsule 4 07/01/20 24 Active Silver sulfADIAZINE 1 % External Cream (Silvadene)Indicati ons:Venous stasis dermatitis Apply topically to affected area daily. 85 g 1 4 Active documented as of this encounter (statuses as of 06/24/2024) Active Problems Problem Noted Date Diagnosed Date [...] as of this encounter (statuses as of 06/24/2024) Resolved Problems Problem Noted Date Diagnosed Date Resolved Date Hypertensive chronic kidney disease with stage 5 chronic kidney disease or end stage renal disease 01/27/2023 08/24/2023 Atherosclerosis of [place] 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 09/13/2021 [...] as of this encounter (statuses as of 06/24/2024) Immunizations Name Administration Dates Next Due COVID-19 mRNA, LNP-s, No Pre serve, 2-Dose Series ([employer]) 10/20/2021,02/28/2021,02/07/2021 COVID-19, MRNA-LNP, 23-24, P F, 30 MCG/0.3 mL, 12 YRS AND ABOVE, IM ([facility]) 10/13/2023 Covid-19, Mrna, Lnp-s, Pf, B ivalent, 30 Mcg, IM, 12 yrs and above ([employer]) 09/12/2022 Hepatitis B Vaccine, Recombi nant, Adjuvanted, [...] encounter Miscellaneous Notes * Telephone Encounter - Tereza Marrero LPN - 06/24/2024 10:34 AM EDT Called patient, he is aware and verbalized understand. No other concerns voiced. documented in this encounter Plan of Treatment Upcoming Encounters Date Type Department Care Team (Late st Contact Info) Description 06/28/2024 2:40 PM EDT Office Visit Merged With [facility] [address] [place] [address] MarchGreg MD [address] [place] [address] 07/01/2024 1:00 PM EDT Office Visit Orthopaedics [facility] [address] [place] [address] Obdulio Valero MD [address] [place] [address] 07/08/2024 2:00 PM EDT [facility] [address] [place] [address] Obdulio Valero MD [address] [place] [address] 07/11/2024 1:20 PM EDT Office Visit Podiatry [facility] [address] [place] [address] Makenzie Newton, [place] [address] [facility] [place] [address] 07/14/2024 3:20 PM EDT Anticoagulation Pharmacy, [place] [address] [place] [address] [facility] [address] [place] [address] 07/19/2024 2:00 PM EDT Office Visit Orthopaedics [facility] [address] [facility] [address] Obdulio Valero MD 132 [place] [address] 07/26/2024 2:40 PM EDT Office Visit Nephrology, [facility] [place] [address] David Jaramillo MD 200 [facility] [place] [address] 09/27/2024 4:00 PM EDT Office Visit Family [facility] [address] [place] [address] Suman Simpson MD [address] [place] [address] Health Maintenance Due Date Last Done Comments COVID-19 Vaccine (2022-24 season) 2024 10/13/2023, 09/12/2022, 10/20/2021, Additional history exists *CXR OR CT FOR COPD EVER 06/12/2024 Influenza Vaccine (FLU shot) (#1) 2024 08/12/2023, [...] Agents on File Name Relationship Healthcare Agent [facility] karthik Communication Latia Trejo Spouse Health Care Agent Care Teams Hardware Design Engineer Relationship Specialty Start Date End Date Suman Simpson MD [address] [place] [address] PCP - General 01/26/03 documented as of this encounter
--- OUTSIDE RECORDS SUMMARY | 2024-11-05 21:49 | External Medical Summary | Summary of Care ---
Author Name Unknown Organization [facility] Address [address] [place] [address] Phone [phone] Care Team Providers Care Endo Tech Name Role Phone Suman Simpson MD Primary Care Provider +1- [phone] Reason for Visit * Reason Comments Dosage Adjustment In Person (Anticoag Cl inic) Encounter Details Date Type Department Care Team (Latest Contact Info) Description 07/14/2024 3:20 PM EDT Anticoagulation Pharmacy, [place] [address] [place] [address] [facility] [address] [place] [address] Anticoagulation management encounter*; Atrial fibrillation, unspecified type (HCC) Allergies Active Allergy Reactions Criticality Noted Date Comments Metolazone 07/29/2021 Severe HYponatremia Morphine Sulfate Other (Please comment) 006 hallucinate Oxycodone Other (Please comment) 07/07/2006 Hallucinate Penicillins 07/21/2011 Hallucinate documented as of this encounter (statuses as of 07/18/2024) Medications Medication Sig Dispensed Refills Start Date [...] as of this encounter (statuses as of 07/18/2024) Active Problems Problem Noted Date Diagnosed Date [...] as of this encounter (statuses as of 07/18/2024) Resolved Problems Problem Noted Date Diagnosed Date Resolved Date Hypertensive chronic kidney disease with stage 5 chronic kidney disease or end stage renal disease 01/27/2023 08/24/2023 Atherosclerosis of [place] 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 09/13/2021 [...] NON ALLERGIC RHINITIS 2020 Chronic pharyngitis 09/15/20 Chronic laryngitis documented as of this encounter (statuses as of 07/18/2024) Immunizations Name Administration Dates Next Due COVID-19 mRNA, LNP-s, No Pre serve, 2-Dose Series ([employer]) 10/20/2021,02/28/2021,02/07/2021 COVID-19, MRNA-LNP, 23-24, P F, 30 MCG/0.3 mL, 12 YRS AND ABOVE, IM ([employer]-ComirnatV[employer]io) 10/13/2023 Covid-19, Mrna, Lnp-s, Pf, B ivalent, [...] (15 years old or older) No 02/10/20 Cognitive Status Response Date of Assessm ent Because of a physical, menta l, or emotional condition, do you have serious difficulty concentrating, remembering, or making decisions? (5 years old or older) No 02/09/2019 documented as of this encounter Progress Notes * Helen Boyer, formerly [facility] - 07/18/2024 7:12 AM EDT Agree with plan as documented. I was present and in the exam room for the entirety of the visit. Helen Boyer formerly [facility] Clinical Pharmacist 07/18/2024, 7:12 AM * Amrit Saldaña formerly [facility] - 07/14/2024 3:14 PM EDT Images from the original note [...] Bruising Objective Current Warfarin Dose As of 07/14/2024 Warfarin maintenance plan: 5 mg (2.5 mg x 2) every Tue, Fri; 2.5 mg (2.5 mg x 1) all other days INR Result As of 07/14/2024 INR goal: 2.0-3.0 INR used for dosin.6 (07/14/2024) Assessment & Plan Warfarin Plan As of 07/14/2024 Full warfarin instructions: 07/14: 5 mg; Otherwise 5 mg every Sun, Tue, Fri; 2.5 mg all other days Next INR check: 07/26/2024 Repeat PT/INR in 2 week(s) Weekly dose: increased Additional Dosing Information: Description Takes in AM Pt prefers OFS vs GML (venipuncture) I spent a total of 10-19 minutes (exact time 19 mins) on the date of service in preparation, delivery, and documentation of the care provided to Tre Trejo excluding any time spent in the performance of separately billed services or time spent by another provider/QHP. Amrit Saldaña PharmD (Tina), formerly [facility] PGY1 [facility] 07/14/2024 4:09 PM documented in this encounter Plan of Treatment Upcoming Encounters Date Type Department Care Team (Late st Contact Info) Description 07/19/2024 2:00 PM EDT Office Visit Orthopaedics [facility] [address] [place] [address] Obdulio Valero MD [address] [place] [address] 07/26/2024 2:40 PM EDT Office Visit Nephrology, [facility] [address] [facility] [place] [address] David Jaramillo MD 200 [facility] [place] [address] 07/26/2024 5:30 PM EDT Anticoagulation Pharmacy, [place] [address] [place] [address] [facility] [address] [place] [address] 09/27/2024 4:00 PM EDT Office Visit Family [facility], [place] [address] [place] [phone] Suman Simpson MD [address] [place] [facility] [place] [address] Health Maintenance Due Date Last Done Comments Adult Wellness Visit 2007 COVID-19 Vaccine (24 season) 2024 10/13/2023, 09/12/2022, 10/20/2021, Additional history [...] Comments INR FINGERSTICK, POINT OF CARE STAT 07/14/2024 3:26 PM EDT Atrial fibrillation, unspecified type (HCC) Anticoagulation management encounter documented in this encounter Results * INR FINGERSTICK, POINT OF CARE (07/14/2024 3:26 PM EDT) Fingerstick INR 1.6 INR 3:27 PM EDT [facility] Blood 07/14/2024 3:26 PM EDT 07/14/2024 3:27 PM EDT Narrative [facility] - 07/14/2024 3:27 PM EDT Therapeutic ranges for non-operative patients: Prophylaxsis/treatment of DVT: (Range:2.0-3.0) Treatment of pulmonary embolism:(Range:2.0-3.0) Prevention of systemic embolism from: -tissue heart valves -acute myocardial infarction -valvular heart disease -atrial fibrillation (Range: 2.0-3.0) Mechanical prosthetic valves: (Range: 2.5-3.5) Helen Boyer formerly [facility] LAB POINT OF CARE TEST DOCKED DEVICE UNSOLICITED RESULTS [facility] [address] [place] [address] documented in this encounter Visit Diagnoses Diagnosis Anticoagulation management [...] Trejo Spouse Health Care Agent Care Teams Endo Tech Relationship Specialty Start Date End Date Suman Simpson MD [address] [place] [address] PCP - General 01/26/03 documented as of this encounter
--- OUTSIDE RECORDS SUMMARY | 2024-11-05 21:49 | External Medical Summary | Summary of Care ---
Author Name Unknown Organization [facility] Address [address] [place] [address] Phone [phone] Care Team Providers Care Hardboard Factory Worker Name Role Phone Suman Simpson MD Primary Care Provider +1- [phone] Reason for Visit * Reason Comments Follow Up Pt is here with his daughter for LEE Shoulder inj. This will be his first of 3 Encounter Details Date Type Department Care Team (Late st Contact Info) Description 07/01/2024 1:00 PM EDT Office Visit Orthopaedics [facility] [address] [place] [address] Obdulio Valero MD [address] [place] [address] Glenohumeral arthritis, right*; Glenohumeral arthritis, left Allergies Active Allergy Reactions Criticality Noted Date Comments Metolazone 07/29/2021 Severe HYponatremia Morphine Sulfate Other (Please comment) 006 hallucinate Oxycodone Other (Please comment) 07/07/2006 Hallucinate Penicillins 07/21/2011 Hallucinate documented as of this encounter (statuses as of 07/01/2024) Medications Medication Sig Dispensed Refills Start Date [...] the morning. 14 Each 3 4 Active Sennosides-Docusate Sodium 8.6-50 MG Oral [...] chronic kidney disease not on chronic dialysis ([facility]) Take 2 tablets in AM and [...] type 2 diabetes mellitus, unspecified ulcer stage ([facility]) Take 1 Capsule by mouth in the [...] mgIndications:Glenohumeral arthritis, right 16.8 mg IX ONCE 07/01/2024 07/01/2024 Ended sodium hyaluronate (Gelsyn-3) 16.8 MG/2ML inj 16.8 mgIndications:Glenohumeral arthritis, left 16.8 mg IX ONCE 07/01/2024 07/01/2024 Ended documented as of this encounter (statuses as of 07/01/2024) Active Problems Problem Noted Date Diagnosed Date [...] as of this encounter (statuses as of 07/01/2024) Resolved Problems Problem Noted Date Diagnosed Date Resolved Date Hypertensive chronic kidney disease with stage 5 chronic kidney disease or end stage renal disease 01/27/2023 08/24/2023 Atherosclerosis of [place] 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 09/13/2021 [...] as of this encounter (statuses as of 07/01/2024) Immunizations Name Administration Dates Next Due COVID-19 mRNA, LNP-s, No Pre serve, 2-Dose Series ([employer]) 10/20/2021,02/28/2021,02/07/2021 COVID-19, MRNA-LNP, 23-24, P F, 30 MCG/0.3 mL, 12 YRS AND ABOVE, IM ([employer]ir[employer]) 10/13/2023 Covid-19, Mrna, Lnp-s, Pf, B ivalent, [...] Progress Notes * Obdulio Valero MD - 07/01/2024 1:00 PM EDT Here for procedure only visit. Presents for bilateral viscosupplementation of the glenohumeral joint. PROCEDURE NOTE: SHOULDER GLENOHUMERAL JOINT INJECTION (Gelsyn #1 BL) Laterality: Bilateral Time out: Prior to [...] Valero MD Sports Medicine Primary Care Orthopaedics [facility] [address] [facility] [address] documented in this encounter Nursing Notes * Georgi Chacon CMA - 07/01/2024 12:53 PM EDT Pt is here with his daughter for LEE Shoulder inj. This will be his first of 3 documented in this encounter Plan of Treatment Upcoming Encounters Date Type Department Care Team (Late st Contact Info) Description 07/08/2024 2:00 PM EDT Office [address] [address] Obdulio Valero MD [address] [place] [address] [place] [address] 07/14/2024 3:20 PM EDT Anticoagulation Pharmacy, [address] [address] [facility] [address] [place] [address] 07/19/2024 2:00 PM EDT Office Visit [facility] [address] Obdulio Valero MD [address] [place] [address] 07/26/2024 2:40 PM EDT Office Visit Nephrology, [facility] 200 [facility] [place] [address] David Jaramillo MD 200 [facility] [place], [place] [address] 09/27/2024 4:00 PM EDT Office Visit [facility] [address] [place] [address] Suman Simpson MD [address] [place] [address] Health Maintenance Due Date Last Done Comments COVID-19 Vaccine ( season) 2024 10/13/2023, 09/12/2022, [...] CARE US MAJOR JOINT INJECTION, ORTHO Routine 07/01/2024 8:55 PM EDT Glenohumeral arthritis, right Glenohumeral arthritis, left documented in this encounter Results * POINT OF CARE US MAJOR JOINT INJECTION, ORTHO (07/01/2024 8:55 PM EDT) Anatomical Region Laterality Modality Musculoskeletal Radiographic Carol ging 07/01/2024 8:55 PM EDT Narrative 07/01/2024 2:33 PM EDT Patient Name: WOJCIECH QUINONES : 1940 (84y) Male Performing Provider: Obdulio Valero (digitally signed Jul 01, 2024 14:33 EDT) Attending: Obdulio Valero (digitally signed Jul 01, 2024 14:33 EDT) [Impression] : PROCEDURE NOTE: SHOULDER GLENOHUMERAL JOINT INJECTION (Gelsyn #1 BL) Laterality: Bilateral Time out: Prior to [...] pain. Procedure Note Obdulio Valero MD - 07/01/2024 Patient Name: WOJCIECH QUINONES : 1940 (84y) Male Performing Provider: Obdulio Valero (digitally signed Jul 01, 2024 14:33EDT) Attending: Obdulio Valero (digitally signed Jul 01, 2024 14:33 EDT) [Impression] : PROCEDURE NOTE: SHOULDER GLENOHUMERAL JOINT INJECTION(Gelsyn #1 BL) Laterality: Bilateral Time out: Prior to [...] 16.8 mg 16.8 mg, Intra-Articular, ONCE, On Thu07/01/24 at 1515, For 1 dose Given 07/01/2024 2:59 PM EDT 16.8 mg Shoulder Right sodium hyaluronate (Gelsyn-3) 16.8 MG/2ML inj 16.8 mg 16.8 mg, Intra-Articular, ONCE, On Thu07/01/24 at 1515, For 1 dose Given 07/01/2024 2:59 PM EDT 16.8 mg Shoulder Left documented [...] Name Relationship Healthcare Agent [facility] Communication Latia Margaret Ignacioderrick Spouse Health Care Agent Care Teams Hardboard Factory Worker Relationship Specialty Start Date End Date Suman Simpson MD [address] [place] [address] PCP - General 01/26/03 documented as of this encounter
--- OUTSIDE RECORDS SUMMARY | 2024-11-05 21:49 | External Medical Summary | Summary of Care ---
Author Name Unknown Organization [facility] Address [address] [place] [address] Phone [phone] Care Team Providers Care Manager Country Name Role Phone Suman Simpson MD Primary Care Provider +1- [phone] Encounter Details Date Type Department Care Team (Late st Contact Info) Description 06/21/2024 Population Health External Data Unspecified Department Allergies [...] in the morning. 90 Capsule 4 Active Breo Ellipta 100-25 MCG/ACT Inhalation [...] stage renal disease 01/27/2023 08/24/2023 Atherosclerosis of [place] 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 09/13/2021 [...] mRNA, LNP-s, No Pre serve, 2-Dose Series ([employer]) 10/20/2021,02/28/2021,02/07/2021 COVID-19, MRNA-LNP, 23-24, P F, 30 MCG/0.3 mL, 12 YRS AND ABOVE, IM ([employer]) 10/13/2023 Covid-19, Mrna, Lnp-s, Pf, B ivalent, 30 Mcg, IM, 12 yrs and above ([employer]ve) 09/12/2022 Hepatitis B Vaccine, Recombi nant, Adjuvanted, [...] Description 06/28/2024 2:40 PM EDT Office [facility] [address] [facility] [address] Greg Rodrigues MD [address] [facility] [address] 07/01/2024 1:00 PM EDT Office Visit Orthopaedics [facility] [address] [place] [address] Obdulio Valero MD 132 [facility] [place] [address] 07/08/2024 2:00 PM EDT Office Visit Orthopa[facility] 132 [facility] [place] [address] Obdulio Valero MD [facility] [place] [address] 07/11/2024 1:20 PM EDT Office Visit Podiatry [facility] [address] [facility] [place] [address] Makenzie Newton, [place] [address] [place] [address] [place] [address] 07/14/2024 3:20 PM EDT Anticoagulation Pharmacy, [place] [address] [facility] [address] [facility] [address] [facility] [address] 07/19/2024 2:00 PM EDT Office Visit Orthopa[facility] [address] [place] [address] Obdulio Valero MD [address] [place] [address] 07/26/2024 2:40 PM EDT Office Visit Nephrology, [facility] 200 [facility] [place], [place] [address] David Jaramillo MD 200 [facility] [place] [address] 09/27/2024 4:00 PM EDT Office Visit [facility] [address] [place] [address] Suman Simpson MD [address] [place] [address] Health Maintenance Due Date Last [...] Spouse Health Care Agent Care Teams Manager Country Relationship Specialty Start Date End Date Suman Simpson MD [address] [place] [address] PCP - General 01/26/03 documented as of this encounter
--- OUTSIDE RECORDS SUMMARY | 2024-11-05 21:49 | External Medical Summary | Summary of Care ---
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); Diabetic ulcer of toe of right foot associated with type 2 diabetes mellitus, unspecified ulcer stage ([facility]) Allergies Active Allergy Reactions Criticality Noted Date Comments Metolazone 07/29/2021 Severe HYponatremia Morphine Sulfate Other (Please comment) 006 hallucinate Oxycodone Other (Please comment) 07/07/2006 Hallucinate Penicillins 07/21/2011 Hallucinate documented as of this encounter (statuses as of 06/21/2024) Medications Medication Sig Dispensed Refills Start Date [...] group B, by GOLD 2017 classification ([facility]) Inhale 1 Puff by mouth in the morning. 180 Each 3 4 Active Gabapentin 100 MG Oral Capsule (Neurontin) Take 1 capsule by mouth twice per day. 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 Do all this for 10 days. 20 Capsule 4 07/01/20 24 Active Silver sulfADIAZINE 1 % External Cream (Silvadene)Indicati ons:Venous stasis dermatitis Apply topically to affected area daily. 85 g 1 4 Active documented as of this encounter (statuses as of 06/21/2024) Active Problems Problem Noted Date Diagnosed Date [...] as of this encounter (statuses as of 06/21/2024) Resolved Problems Problem Noted Date Diagnosed Date Resolved Date Hypertensive chronic kidney disease with stage 5 chronic kidney disease or end stage renal disease 01/27/2023 08/24/2023 Atherosclerosis of [place] 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 09/13/2021 [...] as of this encounter (statuses as of 06/21/2024) Immunizations Name Administration Dates Next Due COVID-19 mRNA, LNP-s, No Pre serve, 2-Dose Series ([employer]) 10/20/2021,02/28/2021,02/07/2021 COVID-19, MRNA-LNP, 23-24, P F, 30 MCG/0.3 mL, 12 YRS AND ABOVE, IM ([employer]) 10/13/2023 Covid-19, Mrna, Lnp-s, Pf, B ivalent, [...] pur e alcohol) PHQ-2 Answer Date Recorded PHQ-2 Score 0 12/01/2019 Hunger Vital Sign Answer Date Recorded Worried [...] 07/01/2024 1:00 PM EDT Office Visit Orthopaedics [facility] [address] [address] Obdulio Valero MD [address] [place] [address] 07/08/2024 2:00 PM EDT Office Visit Orthopaedics [facility] [address] [address] Obdulio Valero MD [address] [place] [address] 07/11/2024 1:20 PM EDT Office Visit Podiatry [facility] [address] [address] Makenzie Newton, BEV [address] [place] [address] [place] [address] 07/14/2024 3:20 PM EDT Anticoagulation Pharmacy[address] [place] [address] [facility] [address] [place] [address] 07/19/2024 2:00 PM EDT Office Visit Orthopaedics [facility] [address] [place] [address] Obdulio Valero MD [address] [place] [address] 07/26/2024 2:40 PM EDT Office Visit Nephrology, [facility] [address] [place] [address] David Jaramillo MD [address] 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) 06/21/2024 12:46 PM EDT ERYTHROCYTE SEDIMENTATION RATE (ESR) Lab Routine Diabetic ulcer of toe of right foot associated with type 2 diabetes mellitus, unspecified ulcer stage ([facility]) 06/21/2024 12:46 PM EDT CRP (INFLAMMATORY MARKER) Lab Routine Diabetic ulcer of toe of right foot associated with type 2 diabetes mellitus, unspecified ulcer stage (HCC) 06/21/2024 12:46 PM EDT CBC WITH WBC DIFFERENTIAL Lab Routine Diabetic ulcer of toe of right foot associated with type 2 diabetes mellitus, unspecified ulcer stage (HCC) 06/21/2024 12:46 PM EDT CBC Lab Routine Diabetic ulcer of toe of right foot associated with type 2 diabetes mellitus, unspecified ulcer stage (HCC) 06/21/2024 12:46 PM EDT DIFFERENTIAL, AUTOMATED Lab Routine Diabetic ulcer of toe of right foot associated with type 2 diabetes mellitus, unspecified ulcer stage (HCC) 06/21/2024 12:46 PM EDT Health Maintenance Due Date Last Done Comments COVID-19 Vaccine ( season) 2024 10/13/2023, 09/12/2022, 10/20/2021, Additional history exists TSH 05/12/2024 05/12/2023, 12/01, 06/26/2021, Additional history exists *CXR OR CT FOR [...] IN PAST YEAR FOR COPD 06/21/2025 06/21/2024 Zoster Vaccines (2 of 3) 06/21/2025 01/28/2013 [...] as of this encounter Visit Diagnoses Diagnosis Secondary hyperparathyroidism of renal origin (HCC) Secondary hyperparathyroidism (of renal origin) 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
--- OUTSIDE RECORDS SUMMARY | 2024-11-05 21:49 | External Medical Summary | Summary of Care ---
Author Name Unknown Organization [facility] Address [address] [place] [address] Phone [phone] Care Team Providers Care Broomcorn Grader Name Role Phone Suman Simpson MD Primary Care Provider +1- [phone] Reason for Visit * Reason Comments Follow Up Pt is here with his daughter for LEE Shoulder inj. This will be his first of 3 Encounter Details Date Type Department Care Team (Late st Contact Info) Description 07/01/2024 1:00 PM EDT Office Visit Orthopaedics [facility] [address] [place] [address] Obdulio Valero MD [address] [place] [address] Glenohumeral arthritis, right*; Glenohumeral arthritis, left Allergies [...] s:COPD, group B, by GOLD 2017 classification ([facility]) Inhale 1 Puff by mouth in the morning. 180 Each 3 4 Active Gabapentin 100 MG Oral Capsule (Neurontin) Take 1 capsule by mouth twice per day. 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 ([facility]) Take 2 tablets in AM [...] type 2 diabetes mellitus, unspecified ulcer stage ([facility]) Take 1 Capsule by mouth [...] arthritis, right 16.8 mg IX ONCE 07/01/2024 07/02/2024 Active sodium hyaluronate (Gelsyn-3) 16.8 MG/2ML inj 16.8 mgIndications:Glenohumeral arthritis, left 16.8 mg IX ONCE 07/01/2024 07/02/2024 Active documented as of this encounter (statuses [...] stage renal disease 01/27/2023 08/24/2023 Atherosclerosis of [place] 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 09/13/2021 [...] mRNA, LNP-s, No Pre serve, 2-Dose Series ([employer]) 10/20/2021,02/28/2021,02/07/2021 COVID-19, MRNA-LNP, 23-24, P F, 30 MCG/0.3 mL, 12 YRS AND ABOVE, IM ([employer]ir[employer]) 10/13/2023 Covid-19, Mrna, Lnp-s, Pf, B ivalent, [...] Obdulio Valero MD Sports Medicine [facility] [address] [facility] [place] [address] documented in this encounter Nursing Notes * Goergi Chacon CMA - 07/01/2024 12:53 PM EDT Pt is here with his daughter for LEE Shoulder inj. This will be his first of 3 documented in this encounter Plan of Treatment Upcoming Encounters Date Type Department Care Team (Late st Contact Info) Description 07/08/2024 2:00 PM EDT Office Visit [facility] [address] [facility] [place] [address] Obdulio Valero MD 132 [facility] [place] [address] 07/14/2024 3:20 PM EDT Anticoagulation Pharmacy, [address] [address] [facility] [place] [address] 07/19/2024 2:00 PM EDT Office Visit [facility] [address] [facility] [place] [address] Obdulio Valero MD [address] [place] [address] 07/26/2024 2:40 PM EDT Office Visit Nephrology, [facility] [address] [place] [place] [address] David Jaramillo MD [address] [facility] [address] [place] [address] 09/27/2024 4:00 PM EDT Office Visit [facility] [address] [place] [facility] [place] [id number] Suman Simpson MD [address] [place] [address] Health Maintenance Due Date Last Done Comments COVID-19 Vaccine (2022- season) 2024 10/13/2023, 09/12/2022, 10/20/2021, Additional history [...] Agents on File Name Relationship Healthcare Agent [facility] Communication Latia Robles Ignacioderrick Spouse Health Care Agent Care Teams Broomcorn Grader Relationship Specialty Start Date End Date Suman Simpson MD [address] [place] [address] PCP - General 01/26/03 documented as of this encounter
--- OUTSIDE RECORDS SUMMARY | 2024-11-05 21:49 | External Medical Summary | Summary of Care ---
Author Name Unknown Organization [facility] Address [address] [place] [address] Phone [phone] Care Team Providers Care Fraud Investigator Name Role Phone Suman Simpson MD Primary Care Provider +1- [phone] Reason for Visit * Reason Comments Dosage Adjustment In Person (Anticoag Cl inic) Encounter Details Date Type Department Care Team (Latest Contact Info) Description 07/14/2024 3:20 PM EDT Anticoagulation Pharmacy, [place] [address] [place] [address] [facility] [address] [place] [address] Anticoagulation management encounter*; Atrial fibrillation, unspecified type (HCC) Allergies Active Allergy Reactions Criticality Noted Date Comments Metolazone 07/29/2021 Severe HYponatremia Morphine Sulfate Other (Please comment) 006 hallucinate Oxycodone Other (Please comment) 07/07/2006 Hallucinate Penicillins 07/21/2011 Hallucinate documented as of this encounter (statuses as of 07/14/2024) Medications Medication Sig Dispensed Refills Start Date [...] 2017 classification ([facility]) Inhale 1 Puff by mouth in the [...] chronic dialysis ([facility]) Take 2 tablets in AM and 2 [...] as of this encounter (statuses as of 07/14/2024) Active Problems Problem Noted Date Diagnosed Date [...] as of this encounter (statuses as of 07/14/2024) Resolved Problems Problem Noted Date Diagnosed Date Resolved Date Hypertensive chronic kidney disease with stage 5 chronic kidney disease or end stage renal disease 01/27/2023 08/24/2023 Atherosclerosis of [place] 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 09/13/2021 [...] as of this encounter (statuses as of 07/14/2024) Immunizations Name Administration Dates Next Due COVID-19 mRNA, LNP-s, No Pre serve, 2-Dose Series ([employer]) 10/20/2021,02/28/2021,02/07/2021 COVID-19, MRNA-LNP, 23-24, P F, 30 MCG/0.3 mL, 12 YRS AND ABOVE, IM ([employer]) 10/13/2023 Covid-19, Mrna, Lnp-s, Pf, B ivalent, [...] 2:00 PM EDT Office Visit Orthopaedics [facility] [address] [place] [address] Obdulio Valero MD [address] [address] 07/26/2024 2:40 PM EDT Office Visit Nephrology, [facility] [address] [facility] [place] [address] David Jaramillo MD [address] [facility] [place] [address] 07/26/2024 5:30 PM EDT Anticoagulation Pharmacy, [place] [address] [place] [place] [address] [facility] [address] [place] [address] 09/27/2024 4:00 PM EDT Office Visit Family Practice, [place] [address] [place] [facility] [place] [phone] Suman Simpson MD [address] [facility] [place] [address] Health Maintenance Due Date Last Done Comments [...] INR 1.6 INR 3:27 PM EDT [facility] Blood 07/14/2024 3:26 PM EDT 07/14/2024 3:27 PM EDT Narrative [facility]- - 07/14/2024 3:27 PM EDT Therapeutic ranges for non-operative patients: Prophylaxsis/treatment of DVT: (Range:2.0-3.0) Treatment of pulmonary embolism:(Range:2.0-3.0) Prevention of systemic embolism from: -tissue heart valves -acute myocardial infarction -valvular heart disease -atrial fibrillation (Range: 2.0-3.0) Mechanical prosthetic valves: (Range: 2.5-3.5) [facility] POINT OF CARE TEST DOCKED DEVICE UNSOLICITED RESULTS [facility] [address] [place] [address] documented in this encounter Visit Diagnoses Diagnosis [...] Trejo Spouse Health Care Agent Care Teams Fraud Investigator Relationship Specialty Start Date End Date Suman Simpson MD [address] [place] [address] PCP - General 01/26/03 documented as of this encounter
--- OUTSIDE RECORDS SUMMARY | 2024-11-05 21:49 | External Medical Summary ---
Author Name Unknown Address Unknown Organization : Laboratory Report Ordering Provider Test Date Status LAURA BRANNON 07/14/2024 15:26:22 Final Therapeutic ranges for non-o perative patients:
Prophylaxsis/treatment of DVT: (Range:2.0-3.0)
Treatment of pulmonary embolism:(Range:2.0-3.0)
Prevention of systemic embolism from:
-tissue heart valves
-acute myocardial infarction
-valvular heart disease
-atrial fibrillation
(Range: 2.0-3.0)
Mechanical prosthetic valves: (Range: 2.5-3.5) Observation Date Value Abnormality Reference (Units ) Status INR in Capillary blood by Coagulation assay 07/14/2024 15:26:22 1.6 (INR) Final Performing Location
--- OUTSIDE RECORDS SUMMARY | 2024-11-05 21:49 | External Medical Summary | Summary of Care ---
Author Name Unknown Organization [facility] Address [address] [place] [address] Phone [phone] Care Team Providers Care Velocity Shooter Name Role Phone Suman Simpson MD Primary Care Provider +1- [phone] Encounter Details Date Type Department Care Team (Late st Contact Info) Description 05/16/[address] [facility] [address] [place] [address] Suman Simpson MD [address] [place] [address] Allergies Active Allergy Reactions Criticality Noted Date Comments Metolazone 07/29/2021 Severe HYponatremia Morphine Sulfate Other (Please comment) 006 hallucinate Oxycodone Other (Please comment) 07/07/2006 Hallucinate Penicillins 07/21/2011 Hallucinate documented as of this encounter (statuses as of 07/04/2024) Medications Medication Sig Dispensed Refills Start Date [...] Active Warfarin Sodium 2.5 MG Oral Tablet Take 1-2 tablets (2.5mg to 5mg) by mouth daily as directed by Coumadin clinic 180 Tablet 3 3 05/23/20 24 Discontinued documented as of this encounter (statuses as of 07/04/2024) Active Problems Problem Noted Date Diagnosed Date [...] as of this encounter (statuses as of 07/04/2024) Resolved Problems Problem Noted Date Diagnosed Date Resolved Date Hypertensive chronic kidney disease with stage 5 chronic kidney disease or end stage renal disease 01/27/2023 08/24/2023 Atherosclerosis of [place] 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 09/13/2021 [...] as of this encounter (statuses as of 07/04/2024) Immunizations Name Administration Dates Next Due COVID-19 mRNA, LNP-s, No Pre serve, 2-Dose Series ([employer]) 10/20/2021,02/28/2021,02/07/2021 COVID-19, MRNA-LNP, 23-24, P F, 30 MCG/0.3 mL, 12 YRS AND ABOVE, IM ([facility]) 10/13/2023 Covid-19, Mrna, Lnp-s, Pf, [...] encounter Miscellaneous Notes * Telephone Encounter - Elizabeth Brush LPN - 05/17/2024 3:07 PM EDT Form faxed as requested. * Telephone Encounter - Greg Rodrigues MD - 05/17/2024 2:59 PM EDT Form signed. Addressed by Dr. Simpson at February office visit. Will send his office note. Greg Rodrigues MD * Telephone Encounter - Everette Mandel MED ASSIST - 05/17/2024 1:15 PM EDT Form was received and placed on providers desk. Awaiting signature * Telephone Encounter - Jeanne Jorgensen OSA - 05/16/2024 1:51 PM EDT 05/16/24 Rec paperwork from [facility] that needs completed by Dr. Rodrigues. Placed in Dr. Rodrigues's mail bin on 05/16/24. documented in this encounter Plan of Treatment Upcoming Encounters Date Type Department Care Team (Late st Contact Info) Description 07/08/2024 2:00 PM EDT Office Visit Orthopaedics [facility] [address] [address] Obdulio Valero MD [address] [place] [address] 07/14/2024 3:20 PM EDT Anticoagulation [address] [address] [facility] [address] [place] [address] 07/19/2024 2:00 PM EDT Office Visit Orthopaedics [facility] [address] [place] [address] Obdulio Valero MD [address] [place] [address] 07/26/2024 2:40 PM EDT Office Visit Nephrology, [facility] [address] [facility] [place] [address] David Jaramillo MD [address] [facility] [place], [place] [address] 09/27/2024 4:00 PM EDT Office Visit [facility] [address] [place] [address] Suman Simpson MD [address] [place] [address] Health Maintenance Due Date Last Done Comments [...] Trejo Spouse Health Care Agent Care Teams Velocity Shooter Relationship Specialty Start Date End Date Suman Simpson MD [address] [place] [address] PCP - General 01/26/03 documented as of this encounter
--- OUTSIDE RECORDS SUMMARY | 2024-11-05 21:49 | External Medical Summary | Summary of Care ---
Author Name Unknown Organization [facility] Address [address] [place] [address] Phone [phone] Care Team Providers Care Investigations Director Name Role Phone Suman Simpson MD Primary Care Provider +1- [phone] Reason for Visit * Reason Comments Follow Up Bilateral shoulder Pain Encounter Details Date Type Department Care Team (Late st Contact Info) Description 07/08/2024 2:00 PM EDT Office Visit Orthopaedics [facility] [email or web address] [place] [address] Obdulio Valero MD [address] [place] [address] Glenohumeral arthritis, right*; Glenohumeral arthritis, left Allergies Active Allergy Reactions Criticality Noted Date Comments Metolazone 07/29/2021 Severe HYponatremia Morphine Sulfate Other (Please comment) 006 hallucinate Oxycodone Other (Please comment) 07/07/2006 Hallucinate Penicillins 07/21/2011 Hallucinate documented as of this encounter (statuses as of 07/08/2024) Medications Medication Sig Dispensed Refills Start Date [...] B, by GOLD 2017 classification ([facility]) Inhale 1 Puff by mouth in the morning. 180 Each 3 4 Active Gabapentin 100 MG Oral Capsule (Neurontin) Take 1 capsule by mouth twice per day. 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 ([facility]) Take 2 tablets in AM and 2 [...] as of this encounter (statuses as of 07/08/2024) Active Problems Problem Noted Date Diagnosed Date [...] as of this encounter (statuses as of 07/08/2024) Resolved Problems Problem Noted Date Diagnosed Date Resolved Date Hypertensive chronic kidney disease with stage 5 chronic kidney disease or end stage renal disease 01/27/2023 08/24/2023 Atherosclerosis of [place] 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 [...] as of this encounter (statuses as of 07/08/2024) Immunizations Name Administration Dates Next Due COVID-19 mRNA, LNP-s, No Pre serve, 2-Dose Series ([employer]) 10/20/2021,02/28/2021,02/07/2021 COVID-19, MRNA-LNP, 23-24, P F, 30 MCG/0.3 mL, 12 YRS AND ABOVE, IM ([employer] [place]) 10/13/2023 Covid-19, Mrna, Lnp-s, Pf, B ivalent, 30 Mcg, IM, 12 yrs and above ([employer]) 09/12/2022 Hepatitis B Vaccine, Recombi nant, Adjuvanted, [...] Progress Notes * Obdulio Valero MD - 07/08/2024 2:00 PM EDT [...] Valero MD Sports Medicine Primary Care Orthopaedics [facility] [address] [facility] [address] documented in this encounter Nursing Notes * Yumiko Steinberg LPN - 07/08/2024 1:52 PM EDT F/u Bilateral shoulder SECOND of a series Gelsyn injections Pt c/o 8/10 pain today in L shoulder and 5/10 pain in R shoulder Pt accompanied by his daughter today Mima BaldwinFrancisco BOONE documented in this encounter Plan of Treatment Upcoming Encounters Date Type Department Care Team (Late st Contact Info) Description 07/14/2024 3:20 PM EDT Anticoagulation Pharmacy, [place] [address] [place] [address] [facility] [address] [place] [address] 07/19/2024 2:00 PM EDT Office Visit [facility] [address] Obdulio Valero MD [address] [place] [address] 07/26/2024 2:40 PM EDT Office Visit Nephrology, [facility] [address] [place] [address] David Jaramillo MD [address] [place] [address] 09/27/2024 4:00 PM EDT Office Visit [facility] [address] [place] [phone] Suman Simpson MD [address] [place] [address] Health Maintenance Due Date Last Done Comments Adult Wellness Visit 2007 COVID-19 Vaccine (2022- season) 2024 10/13/2023, 09/12/2022, [...] ONCE, On Thu07/08/24 at 1445, For 1 dose Given 07/08/2024 2:01 PM EDT 16.8 mg Shoulder Right sodium hyaluronate (Gelsyn-3) 16.8 MG/2ML inj 16.8 mg 16.8 mg, Intra-Articular, ONCE, On Thu07/08/24 at 1445, For 1 dose Given 07/08/2024 2:01 PM EDT 16.8 mg [...] Agents on File Name Relationship Healthcare Agent [facility] p Communication Latia Trejo Spouse Health Care Agent Care Teams Investigations Director Relationship Specialty Start Date End Date Suman Simpson MD [address] [place] [address] PCP - General 01/26/03 documented as of this encounter
--- OUTSIDE RECORDS SUMMARY | 2024-11-05 21:50 | External Medical Summary | Summary of Care ---
Author Name Unknown Organization [facility] Address [address] [place] [address] Phone [phone] Care Team Providers Care Veterinarian Small Animal Name Role Phone Suman Simpson MD Primary Care Provider [phone]- [phone] Reason for Visit * Reason Onset Date Comments FYI 05/24/2024 Medication Refill 05/25/2024 resend Encounter Details Date Type Department Care Team (Late st Contact Info) Description 05/24/2024 Refill [facility] [address] [place] [address] Suman Simpson MD [address] [place] [address] Allergies Active Allergy Reactions Criticality Noted Date Comments Metolazone 07/29/2021 Severe HYponatremia Morphine Sulfate Other (Please comment) 006 hallucinate Oxycodone Other (Please comment) 07/07/2006 Hallucinate Penicillins 07/21/2011 Hallucinate documented as of this encounter (statuses as of 05/25/2024) Medications Medication Sig Dispensed Refills Start Date End Date Status VITAMIN C 500 MG PO TABS one tablet by mouth daily Active MULTIVITAL PO TABS one tablet by mouth daily Active Probiotic Daily Oral Capsule Take 1 Capsule by mouth in the morning. Active Vitamin-B Complex Oral Tablet Take 1 Tablet by mouth in the morning. Active Allopurinol 100 MG Oral Tablet (Zyloprim)Indication s:Gout, unspecified cause, unspecified chronicity, unspecified site Take 1/2 tab by mouth daily 45 Tablet 03/07/2024 Active Bisacodyl 5 MG Oral Tablet Delayed Release (Dulcolax)Indication s:Constipation, unspecified constipation type Take 1 Tablet by mouth daily as needed for Constipation. May take 1 or two tablets 30 Tablet 03/07/2024 Active glipiZIDE 5 MG Oral Tablet (Glucotrol)Indicatio ns:Type 2 diabetes mellitus with hemoglobin A1c goal of less than 8.0% (HCC) Take 1 Tablet by mouth in the morning. 90 Tablet 03/07/2024 Active Isosorbide Dinitrate 20 MG Oral Tablet (Isordil)Indications :HTN, goal below 140/90 TAKE ONE TABLET BY MOUTH EVERY MORNING AND TAKE ONE TABLET BY MOUTH BEFORE BEDTIME 180 Tablet 03/07/2024 Active Levothyroxine Sodium 88 MCG Oral Tablet (Levoxyl)Indications :Other specified hypothyroidism TAKE ONE TABLET BY MOUTH EVERY MORNING AT LEAST 30 MINUTES PRIOR TO BREAKFAST OR OTHER MEDICATIONS 90 Tablet 03/07/2024 Active Losartan Potassium 25 MG Oral Tablet (Cozaar) Take 1 Tablet by mouth in the morning. 90 Tablet 03/07/2024 Active Metoprolol Succinate ER 100 MG Oral Tablet Extended Release 24 Hour (toPROL XL)Indications:HTN, goal below 140/90 TAKE ONE TABLET BY MOUTH EVERY MORNING AND AT BEDTIME 180 Tablet 03/07/2024 Active OneTouch Verio In Vitro Strip (Glucose Blood)Indications:Ty pe 2 diabetes mellitus with hemoglobin A1c goal of less than 8.0% (HCC) Use up to 4 times a day E11.9 100 Strip 03/07/2024 Active Pantoprazole Sodium 40 MG Oral Tablet Delayed Release (Protonix)Indication s:Gastroesophageal reflux disease without esophagitis TAKE ONE TABLET BY MOUTH EVERY DAY 30 MINUTES PRIOR TO EATING 90 Tablet 03/07/2024 Active Polyethylene Glycol 3350 17 GM Oral Packet (Miralax)Indications :Constipation, unspecified constipation type Take 1 Packet by mouth in the morning. 14 Each 03/07/2024 Active Sennosides-Docusate Sodium 8.6-50 MG Oral Tablet (Senokot-S)Indicatio ns:Constipation, unspecified constipation type Take 1 Tablet by mouth at bedtime as needed for Constipation. May increase to 2 as needed 30 Tablet 03/07/2024 Active Tamsulosin HCl 0.4 MG Oral Capsule (Flomax)Indications: BPH with obstruction/lower urinary tract symptoms Take 1 Capsule by mouth in the morning. 90 Capsule 3 03/07/2024 Active Breo Ellipta 100-25 MCG/ACT Inhalation Aerosol Powder Breath ActivatedIndications :COPD, group B, by GOLD 2017 classification ([facility]) Inhale 1 Puff by mouth in the morning. 180 Each 3 03/07/2024 Active Gabapentin 100 MG Oral Capsule (Neurontin) Take 1 capsule by mouth twice per day. 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 360 Tablet 3 05/13/2024 Active Warfarin Sodium 2.5 MG Oral Tablet (Jantoven) TAKE 1-2 TABLETS BY MOUTH DAILY 180 Tablet 3 05/23/2024 Active documented as of this encounter (statuses as of 05/25/2024) Active Problems Problem Noted Date Diagnosed Date [...] as of this encounter (statuses as of 05/25/2024) Resolved Problems Problem Noted Date Diagnosed Date Resolved Date Hypertensive chronic kidney disease with stage 5 chronic kidney disease or end stage renal disease 01/27/2023 08/24/2023 Atherosclerosis of 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 09/13/2021 [...] as of this encounter (statuses as of 05/25/2024) Immunizations Name Administration Dates Next Due COVID-19 mRNA, LNP-s, No Pre serve, 2-Dose Series ([employer]) 10/20/2021,02/28/2021,02/07/2021 COVID-19, MRNA-LNP, 23-24, P F, 30 MCG/0.3 mL, 12 YRS AND ABOVE, IM ([employer] [facility] 10/13/2023 Covid-19, Mrna, Lnp-s, Pf, B [...] encounter Miscellaneous Notes * Addendum Note - Everette James PHARM Tech - 05/25/2024 1:33 PM EDT Addended by: EVERETTE JAMES on: 05/25/2024 01:33 PM Modules accepted: Orders * Telephone Encounter - Everette James PHARM Tech - 05/25/2024 1:32 PM EDT Pt out of medication. Please resend Rx to [facility] Confirmed pharmacy did not receive original prescription. Pending Prescriptions: Disp Refills Warfarin Sodium 2.5 MG Oral Tablet (Janto*180 Ta*3 Sig: TAKE 1-2 TABLETS BY MOUTH DAILY Last Visit: 03/07/2024 (in office), Visit date not found (telemedicine) 09/27/2024 If no future appointments scheduled, and last appointment is greater than a year ago, please schedule patient for a follow-up appointment Last date the medication was ordered: 05/23/2024 Patient Phone Numbers Labs: Lab Results Component Value Date/Time CREAT 3.2 (H) 03/07/2024 04:18 PM CREAT 3.82 (A) 03/22/2023 12:00 AM CREAT 3.3 (H) 10/12/2020 01:30 PM POTASSIUM 3.9 03/07/2024 04:18 PM POTASSIUM 3.9 03/22/2023 12:00 AM POTASSIUM 4.3 10/12/2020 01:30 PM TSH 1.84 05/12/2023 01:49 PM TSH 2.17 06/14/2020 08:24 AM LDLCALC 88 06/14/2020 08:24 AM LDLDIRECT 54 05/12/2023 01:49 PM LDLDIRECT 95 06/14/2020 08:24 AM LDLDIRECT NOT APPLICABLE 06/14/2020 08:24 AM ALT 17 06/14/2020 08:24 AM HGBA1C 7.2 (H) 03/07/2024 04:18 PM HGBA1C 5.7 (H) 06/14/2020 08:24 AM * Telephone Encounter - Carmencita Mccurdy CPhT - 05/24/2024 10:46 AM EDT Pt calling to request Warfarin Sodium 2.5 MG Oral Tablet . Informed pt that RX is available at their pharmacy. Pt verbalized understanding and stated they will check with their pharmacy regarding this medication. Thank you, Carmencita Mccurdy CPhT Radiologic Technology Instructor II [facility] 05/24/2024,10:46 AM documented in this encounter Plan of Treatment Upcoming Encounters Date Type Department Care Team (Late st Contact Info) Description 06/01/2024 3:20 PM EDT Anticoagulation Pharmacy, [address] [address] [place], [facility] [place] [address] 07/01/2024 1:00 PM EDT Office Visit [facility] [address] [address] Obdulio Valero MD [address] [place] [address] 07/08/2024 2:00 PM EDT Office Visit [facility] [address] [address] Obdulio Valero MD [address] [place] [address] 07/15/2024 2:00 PM EDT Office Visit Orthopaedics [facility] [address] [place] [address] Obdulio Valero MD [address] [place] [address] 07/26/2024 2:40 PM EDT Office Visit Nephrology, [facility] [address] [facility] [address] [place], [place] [address] David Jaramillo MD [address] [facility] [place], [place] [address] 09/27/2024 4:00 PM EDT Office Visit [facility] [address] [place] [address] Suman Simpson MD [address] [place] [address] Health Maintenance Due Date Last Done Comments Zoster Vaccines (2 of 3) 03/25/2013 01/28/2013 Depression Screening 12/01/2020 12/01/2019 Hepatitis B (2 of 2 - CpG 2-dose series) 10/17/2023 09/19/2023 COVID-19 Vaccine ( season) 2024 10/13/2023, 09/12/2022, 10/20/2021, Additional history exists Diabetic Foot Exam 04/16/2024 04/16/2023, 0 06/14/2020, 06/06/2019, Additional history exists TSH 05/12/2024 05/12/2023, 12/01, 06/26/2021, Additional history exists HbA1c 09/06/2024 03/07/2024, 12/31, 05/12/2023, Additional history exists O2 ASSESSMENT COMPLETED IN PAST YEAR FOR COPD 03/07/2025 03/07/2024 Diabetic Eye Exam 04/01/2025 04/01/2024, , 03/30/2023, Additional history exists DTaP,Tdap,and Td Vaccines (4 - Td or Tdap) 01/13/2033 01/13/2023, 01/13/2023, 01/04/2013, Additional history exists Pneumococcal Vaccine: 65+ Years Completed 08/02/2015, 08/31/2012, 10/25/2002 Alpha-1 Antitrypsin Completed 09/06/2018 Influenza Vaccine (FLU shot) Completed 08/12/2023, 08/12/2023, 09/19/2022, Additional history exists RETIRED - COLONOSCOPY-EVERY 5 YRS AGES 18-100 Discontinued 09/04/2023, 01/08/2010 Nephrology Referral Discontinued 03/07/2024, 01/24/2014, 07/16/2011, Additional history exists GARDASIL-HPV IMMUNIZATION SERIES Aged Out No longer eligible based on [...] Trejo Spouse Health Care Agent Care Teams Veterinarian Small Animal Relationship Specialty Start Date End Date Suman Simpson MD [address] [place] [address] PCP - General 01/26/03 documented as of this encounter
--- OUTSIDE RECORDS SUMMARY | 2024-11-05 21:50 | External Medical Summary | Summary of Care ---
Author Name Unknown Organization [facility] Address [address] [place] [address] Phone [phone] Care Team Providers Care Palaeontologist Name Role Phone Suman Simpson MD Primary Care Provider [phone]- [phone] Reason for Referral * Evaluate & Treat - Unlimited Visits (Within 10 days (routine)) - Authorized Specialty Diagnoses / Procedures Referred By Contac t Referred To Contact Podiatry Diagnoses Diabetic ulcer of toe of right foot associated with type 2 diabetes mellitus, unspecified ulcer stage (HCC) Greg Rodrigues MD [address] [place] [address] Referral ID Status Reason Start Date Expiration Date Visits Requested Visits Authorized [id number] Authorized Specialty Services Required 06/21/[phone] Question Answer Referral Priority Within 10 days (routine) [facility] this [facility] be scheduled? [facility] Which condition are you referring this patient for? General Podiatry/Other Comments Diabetic foot ulcer. Reason for Visit * Reason Comments Acute Patient is here toda y for foot pain.Patient states he has painful myers in the bottom of his feet, patient states the myers resemble ringworm. He has been using medicated soap on it and it has been helping.Patient has a red and painful lump on the top of his right toe that appeared over 3 weeks ago. In the last week it has opened up but only sees discharge if pressure is put on it. Patient states he has trouble urinating; he says he doesn't have any pain but isn't able to produce much urine. 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..] mRNA, LNP-s, No Pre serve, 2-Dose Series ([employer]) 10/20/2021,02/28/2021,02/07/2021 COVID-19, MRNA-LNP, 23-24, P F, 30 MCG/0.3 mL, 12 YRS AND ABOVE, IM ([facility]) 10/13/2023 Covid-19, Mrna, Lnp-s, Pf, [...] Sign Reading Time Taken Comments Blood Pressure 140/68 06/21/2024 11:37 AM EDT Pulse 62 06/21/2024 11:37 AM EDT Temperature 36.7 C (98 F) 06/21/2024 11:37 AM EDT Respiratory Rate 16 06/21/2024 11:37 AM EDT Oxygen Saturation 98% 06/21/2024 11:37 AM EDT Inhaled Oxygen Concentration - - Weight 97.6 kg (215 lb 3.2 oz) 06/21/2024 11:37 AM EDT Height 175.3 cm (5' 9") 06/21/2024 11:37 AM EDT Body Mass Index 31.78 06/21/2024 11:37 AM EDT documented in this [...] Progress Notes * Greg Rodrigues MD - 06/21/2024 11:30 AM EDT Images from the original note were not included. Assessment and Plan Diabetic ulcer on the dorsal aspect of the right toe. Check lab work as below to look for signs of inflammation that would indicate osteomyelitis. Also get an x- ray. Consider MRI based on results of x-ray. Keflex 500 mg twice daily to cover for bacterial infection of the toe. This is renally dosed.Refer to Podiatry for further assistance in management. Follow up in one-week if not seen by Podiatry. Recommend wrapping the legs due to mild swelling. Cover the lesion of the right anterior rose with nonadherent dressing and keep clean. No signs of infection at this area. 1. 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) ([facility]) - DIABETES FOOT EXAM 2. Diabetic ulcer of toe of right foot associated with type 2 diabetes mellitus, unspecified ulcer stage ([facility]) - ERYTHROCYTE SEDIMENTATION RATE (ESR); Future - CRP (INFLAMMATORY MARKER); Future - CBC WITH WBC DIFFERENTIAL; Future - Cephalexin 500 MG Oral Capsule; Take 1 Capsule by mouth in the morning and 1 Capsule before bedtime. Do all this for 10 days. Dispense: 20 Capsule; Refill: 0 - PODIATRY REFERRAL OP - XR TOES 2 OR MORE VIEWS 3. 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 Secondary hyperparathyroidism of renal origin (HCC) - TSH WITH FREE T4 IF INDICATED; Future 5. Venous stasis dermatitis - Silver sulfADIAZINE 1 % External Cream (Silvadene); Apply topically to affected area daily. Dispense: 85 g; Refill: 1 Wrap-Up Follow up in 1 week if not seen by podiatry. History of Present Illness The patient is an 84 year old male with past medical history of type 2 diabetes with diabetic neuropathy, hypothyroidism, COPD, HTN, atrial fibrillation, GERD, ESRD, RA, thrombocytopenia who presentsfor acute. 84-year-old male presents for an acute visit. He notes an open wound on the dorsal aspect of his right great toe. There was some surrounding erythema. He notes erythema and redness started multiple weeks ago likely related to new shoes that were rubbing. Over the last couple of weeks an open to ulcer developed in the area. No fevers, chills, other signs of systemic infection. He does get some pain in the area. He was not tried any specific treatments. Patient also with an open wound on the anterior aspect of the right rose. Mild swelling /edema in the area. They have been using [id number] antibiotic cream. Physical Exam Vitals: 06/21/24 1137 Temp: 36.7 C (98 F) Pulse: 62 Resp: 16 SpO2: 98% BP: 140/68 BMI: 31.76 Physical Exam Physical Exam Vitals reviewed. Constitutional: General: He is not in acute distress. Pulmonary: Effort: Pulmonary effort is normal. No respiratory distress. Musculoskeletal: Comments: Ulceration of the dorsal aspect of the right great toe with surrounding erythema. Skin tear/abrasion in the anterior aspect of the right rose. Trace edema bilaterally. 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 Feet are warm and well- perfused bilaterally. Neurological: General: No focal deficit present. Mental Status: He is alert. This note has been completed in part utilizing [employer] Speech Voice Recognition Software. Due to technical limitations of the software, grammatical errors, random word insertions, prounoun errors, and incomplete sentences may occur. Any formal questions or concerns about the content, text, or information contained within the body of this dictation should be directly addressed to the provider for clarification. documented in this encounter Nursing Notes * Benja LindaABBIE Rivera - 06/21/2024 11:26 AM EDT Socks and Shoes Removed for Annual Diabetic Foot Screening RIGHT FOOT: No Reddened, Cracking, Or Open Areas Noted. RIGHT Dorsalis Pedis Pulse: Palpable RIGHT Posterior Tibial Pulse: Palpable RIGHT Monofilament:Patient reports difficulty feeling monofilament at Great toe- plantar surface, Third toe-plantar surface, Ball of Foot-base of great toe, Ball of Foot-base of 3rd toe, and Ball of Foot-base of little toe LEFT FOOT: No Reddened, Cracking or Open Areas Noted. LEFT Dorsalis Pedis Pulse: Palpable LEFT Posterior Tibial Pulse: Palpable LEFT Monofilament:Patient reports difficulty feeling monofilament at Great toe- plantar surface, Third toe-plantar surface, Ball of Foot-base of great toe, Ball of Foot-base of 3rd toe, and Ball of Foot-base of little toe Do you need diabetic shoes: Yes The patient has been properly identified by confirmation of name and date of . Chief Complaint Patient presents with Acute Patient is here today for foot pain. Patient states he has painful myers in the bottom of his feet, patient states the myers resemble ringworm. He has been using medicated soap on it and it has been helping. Patient has a red and painful lump on the top of his right toe that appeared over 3 weeks ago. In the last week it has opened up but only sees discharge if pressure is put on it. Patient states he has trouble urinating; he says he doesn't have any pain but isn't able to producemuch urine. It started over a month ago. 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); Diabetic ulcer of toe of right foot associated with type 2 diabetes mellitus, unspecified ulcer stage (HCC) 07/01/2024 1:00 PM EDT Office Visit Orthopaedics [facility] [address] [facility] [place] [address] Obdulio Valero MD [facility] [place] [address] 07/08/2024 2:00 PM EDT Office Visit Orthopaedics [facility] [address] [facility] [place] [address] Obdulio Valero MD [address] [facility] [place] [address] 07/11/2024 1:20 PM EDT Office Visit Podiatry [facility] [address] [facility] [place] [address] Makenzie Newton DPM [address] [place] [address] [place] [address] 07/14/2024 3:20 PM EDT Anticoagulation Pharmacy, [facility] [address] [place] [address] [facility] [address] [place] [address] 07/19/2024 2:00 PM EDT Office Visit Orthopaedics [facility] [address] [place] [address] Obdulio Valero MD [address] [place] [address] 07/26/2024 2:40 PM EDT Office Visit Nephrology, [facility] [address] [facility] [place], [place] [address] David Jaramillo MD [address] [facility] [place], [place] [address] 09/27/2024 4:00 PM EDT Office Visit [facility] [address] [place] [id number] Suman Simpson MD [address] [place] [address] Pending Results Name Type Priority Associated Diagnoses Date /Time TSH WITH FREE T4 IF INDICATED Lab Routine Secondary hyperparathyroidism of renal origin ([facility]) 06/21/2024 12:46 PM EDT COMPREHENSIVE METABOLIC PANEL Lab Routine 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 ([facility]) 06/21/2024 12:46 PM EDT ERYTHROCYTE SEDIMENTATION RATE (ESR) Lab Routine Diabetic ulcer of toe of right foot associated with type 2 diabetes mellitus, unspecified ulcer stage (HCC) 06/21/2024 12:46 PM EDT CRP (INFLAMMATORY MARKER) Lab Routine Diabetic ulcer of toe of right foot associated with type 2 diabetes mellitus, unspecified ulcer stage (HCC) 06/21/2024 12:46 PM EDT CBC WITH WBC DIFFERENTIAL Lab Routine Diabetic ulcer of toe of right foot associated with type 2 diabetes mellitus, unspecified ulcer stage (HCC) 06/21/2024 12:46 PM EDT Scheduled Orders Name Type Priority Associated Diagnoses Orde r Schedule TSH WITH FREE T4 IF INDICATED Lab Routine Secondary hyperparathyroidism of renal origin (HCC) Expected: 06/21/2024 (Approximate), Expires: 06/21/2025 COMPREHENSIVE METABOLIC PANEL Lab Routine 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) Expected: 06/21/2024 (Approximate), Expires: 06/21/2025 ERYTHROCYTE SEDIMENTATION RATE (ESR) Lab Routine Diabetic ulcer of toe of right foot associated with type 2 diabetes mellitus, unspecified ulcer stage (HCC) Expected: 06/21/2024 (Approximate), Expires: 06/21/2025 CRP (INFLAMMATORY MARKER) Lab Routine Diabetic ulcer of toe of right foot associated with type 2 diabetes mellitus, unspecified ulcer stage (HCC) Expected: 06/21/2024 (Approximate), Expires: 06/21/2025 CBC WITH WBC DIFFERENTIAL Lab Routine Diabetic ulcer of toe of right foot associated with type 2 diabetes mellitus, unspecified ulcer stage (HCC) Expected: 06/21/2024 (Approximate), Expires: 06/21/2025 XR TOES 2 OR MORE VIEWS Medical Imaging Routine Diabetic ulcer of toe of right foot associated with type 2 diabetes mellitus, unspecified ulcer stage (HCC) Ordered: 06/21/2024 Scheduled Referrals Name Type Priority Associated Diagnoses Orde r Schedule PODIATRY REFERRAL OP Referral Within 10 days (routine) Diabetic ulcer of toe of right foot associated with type 2 diabetes mellitus, unspecified ulcer stage (HCC) Ordered: 06/21/2024 Health Maintenance Due Date Last Done Comments [...] as of this encounter Visit Diagnoses Diagnosis Diabetic ulcer of toe of right foot associated with type 2 diabetes mellitus, unspecified ulcer stage (HCC)- Primary 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) (HCC) 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
--- OUTSIDE RECORDS SUMMARY | 2024-11-05 21:50 | External Medical Summary | Summary of Care ---
Author Name Unknown Organization [facility] Address [address] [place] [address] Phone [phone] Care Team Providers Care Building Inspection Engineer Name Role Phone Suman Simpson MD Primary Care Provider +1- [phone] Reason for Visit * Reason Onset Date Comments FYI 05/24/2024 Medication Refill 05/25/2024 resend Encounter Details Date Type Department Care Team (Late st Contact Info) Description 05/24/2024 Refill [facility] [address] [place] [address] Suman Simpson MD [address] [place] [address] Allergies Active Allergy Reactions Criticality [...] :COPD, group B, by GOLD 2017 classification ([facility]) Inhale 1 Puff by mouth in the morning. 180 Each 3 03/07/2024 Active Gabapentin 100 MG Oral Capsule (Neurontin) Take 1 capsule by mouth twice per day. 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 ([facility]) Take 2 tablets in AM and [...] stage renal disease 01/27/2023 08/24/2023 Atherosclerosis of [place] 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 09/13/2021 [...] mRNA, LNP-s, No Pre serve, 2-Dose Series (Latio) 10/20/2021,02/28/2021,02/07/2021 COVID-19, MRNA-LNP, 23-24, P F, 30 MCG/0.3 mL, 12 YRS AND ABOVE, IM ([facility] 10/13/2023 Covid-19, Mrna, Lnp-s, Pf, B ivalent, [...] PHARM Tech - 05/25/2024 1:32 PM EDT Please resend Rx to [facility] Confirmed pharmacy did not receive original [...] this medication. Thank you, Carmencita Mccurdy CPhT Agricultural Sciences Professor II Centralized Clinical Pharmacy Services (CCPS) 05/24/2024,10:46 AM documented in this encounter Plan of Treatment Upcoming Encounters Date Type Department Care Team (Late st Contact Info) Description 06/01/2024 3:20 PM EDT Anticoagulation Pharmacy, [address] [address] [facility] [address] [place] [address] 07/01/2024 1:00 PM EDT Office Visit [facility] [address] [address] Obdulio Valero MD [address] [place] [address] 07/08/2024 2:00 PM EDT Office Visit [facility] [address] [address] Obdulio Valero MD [address] [place] [address] 07/15/2024 2:00 PM EDT Office Visit [facility] [address] [place] [address] Obdulio Valero MD [address] [place] [address] 07/26/2024 2:40 PM EDT Office Visit Nephrology, [facility] [place] [address] [facility] [place], [place] [address] David Jaramillo MD [address] [facility] [place], [place] [address] 09/27/2024 4:00 PM EDT Office Visit [facility] [address] [place] [address] Suman Simpson MD [address] [place] [address] Health Maintenance Due Date Last [...] Agents on File Name Relationship Healthcare Agent [facility] Communication Latia Trejo Spouse Health Care Agent Care Teams Building Inspection Engineer Relationship Specialty Start Date End Date Suman Simpson MD [address] [place] [address] PCP - General 01/26/03 documented as of this encounter
--- OUTSIDE RECORDS SUMMARY | 2024-11-05 21:50 | External Medical Summary | Summary of Care ---
Author Name Unknown Organization [facility] Address [address] [place] [address] Phone [phone] Care Team Providers Care Casing Inspector Name Role Phone Suman Simpson MD Primary Care Provider +1- [phone] Reason for Visit * Reason Onset Date Comments Pre Cert/Prior Auth 06/10/2024 Encounter Details Date Type Department Care Team (Late st Contact Info) Description 06/10/2024 Telephone [facility] [address] [place] [address] Suman Simpson MD [address] [place] [address] Pre Cert/Prior Auth Allergies Active Allergy Reactions Criticality Noted Date Comments Metolazone 07/29/2021 Severe HYponatremia Morphine Sulfate Other (Please comment) 006 hallucinate Oxycodone Other (Please comment) 07/07/2006 Hallucinate Penicillins 07/21/2011 Hallucinate documented as of this encounter (statuses as of 06/10/2024) Medications Medication Sig Dispensed Refills Start Date [...] group B, by GOLD 2017 classification ([facility]) Inhale 1 Puff by mouth in the morning. 180 Each 3 4 Active Gabapentin 100 MG Oral Capsule (Neurontin) Take 1 capsule by mouth twice per day. 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 360 Tablet 3 4 Active Warfarin Sodium 2.5 MG Oral Tablet (Jantoven) TAKE 1-2 TABLETS BY MOUTH DAILY. According to anticoagulation clinic 180 Tablet 3 4 Active documented as of this encounter (statuses as of 06/10/2024) Active Problems Problem Noted Date Diagnosed Date [...] as of this encounter (statuses as of 06/10/2024) Resolved Problems Problem Noted Date Diagnosed Date Resolved Date Hypertensive chronic kidney disease with stage 5 chronic kidney disease or end stage renal disease 01/27/2023 08/24/2023 Atherosclerosis of [place] 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 09/13/2021 [...] as of this encounter (statuses as of 06/10/2024) Immunizations Name Administration Dates Next Due COVID-19 mRNA, LNP-s, No Pre serve, 2-Dose Series ([employer]) 10/20/2021,02/28/2021,02/07/2021 COVID-19, MRNA-LNP, 23-24, P F, 30 MCG/0.3 mL, 12 YRS AND ABOVE, IM ([facility]) 10/13/2023 Covid-19, Mrna, Lnp-s, Pf, B [...] encounter Miscellaneous Notes * Telephone Encounter - Suman Simpson MD - 06/10/2024 5:50 PM EDT Signed - at my desk * Telephone Encounter - Everette Mandel MED ASSIST - 06/10/2024 11:42 AM EDT Received PA from [facility] for gabapentin 100mg capsules. Filled out awaiting providers signature documented in this encounter Plan of Treatment Upcoming Encounters Date Type Department Care Team (Late st Contact Info) Description 07/01/2024 1:00 PM EDT Office Visit [facility] [address] [place] [address] Obdulio Valero MD [address] [place] [address] 07/08/2024 2:00 PM EDT Office Visit [facility] [address] [address] Obdulio Valero MD [address] [place] [address] 07/14/2024 3:20 PM EDT [facility]tico[facility], [place] [address] [address] [facility] [address] [facility] [address], [place] [address] 07/15/2024 2:00 PM EDT Office Visit [facility] 132 [facility] [place] [address] Obdulio Valero MD [address] [place] [address] 07/26/2024 2:40 PM EDT Office Visit Nephrology, [facility] [address] [facility] [place] [address] David Jaramillo MD [address] [facility] [place], [place] [address] 09/27/2024 4:00 PM EDT Office Visit [facility] [address] [place] [address] Suman Simpson MD [address] [place] [address] Health Maintenance Due Date Last Done Comments Zoster Vaccines (2 of 3) 03/25/2013 01/28/2013 Depression Screening 12/01/2020 12/01/2019 Hepatitis B Vaccine (2 of 2 - CpG 2-dose series) 10/17/2023 09/19/2023 COVID-19 Vaccine ( season) 2024 10/13/2023, 09/12/2022, 10/20/2021, Additional history exists Diabetic Foot Exam 04/16/2024 04/16/2023, 0 06/14/2020, 06/06/2019, Additional history exists TSH 05/12/2024 05/12/2023, 12/01, 06/26/2021, Additional history exists Influenza Vaccine (FLU shot) [...] Agents on File Name Relationship Healthcare Agent [facility] Communication Latia Trejo Spouse Health Care Agent Care Teams Casing Inspector Relationship Specialty Start Date End Date Suman Simpson MD [address] [place] [address] PCP - General 01/26/03 documented as of this encounter
--- OUTSIDE RECORDS SUMMARY | 2024-11-05 21:50 | External Medical Summary | Summary of Care ---
Author Name Unknown Organization [facility] Address [address] [place] [address] Phone [phone] Care Team Providers Care Ping Pong Table Assembler Name Role Phone Randy Garg MD Primary Care Provider +1- [phone] Reason for Visit * Reason Onset Date Comments FYI 05/24/2024 Medication Refill 05/25/2024 resend Encounter Details Date Type Department Care Team (Late st Contact Info) Description 05/24/2024 Refill [facility] [address] [place] [address] Randy Garg MD [address] [place] [address] Allergies Active Allergy Reactions Criticality [...] in the morning. 14 Each 4 Active Sennosides-Docusat e Sodium 8.6-50 MG Oral Tablet [...] B, by GOLD 2017 classification ([facility]) Inhale 1 Puff by mouth in the morning. 180 Each 3 4 Active Gabapentin 100 MG Oral Capsule (Neurontin) Take 1 capsule by mouth twice per day. 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 360 Tablet 3 4 Active Warfarin Sodium 2.5 MG Oral Tablet (Jantoven) TAKE 1-2 TABLETS BY MOUTH DAILY. 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 10/13/2023 Covid-19, Mrna, Lnp-s, Pf, B [...] encounter Miscellaneous Notes * Telephone Encounter - Abbi Bergeron [facility] - 05/25/2024 1:43 PM EDTSigned Prescriptions: Disp Refills Warfarin Sodium 2.5 MG Oral Tablet (Jantov*180 Ta*3 Sig: TAKE 1-2 TABLETS BY MOUTH DAILY. According to anticoagulation clinicAuthorizing Provider: RANDY GARG User: ABBI BERGERON * Addendum Note - Abbi Bergeron RP - 05/25/2024 1:43 PM EDTAddended by: ABBI BERGERON on: 05/25/2024 01:43 PM Modules accepted: Orders * Addendum Note - Everette James oil lease operator - 05/25/2024 1:33 PM EDT Addended by: EVERETTE JAMES on: 05/25/2024 01:33 PM Modules accepted: Orders * Telephone Encounter - Everette James oil lease operator - 05/25/2024 1:32 PM EDT Pt out of medication. Please resend Rx to [facility] [address] Confirmed pharmacy did not receive original [...] this medication. Thank you, Carmencita Mccurdy CPhT Evidence Specialist II Centralized Clinical Pharmacy Services (CCPS) 05/24/2024,10:46 AM documented in this encounter Plan of Treatment Upcoming Encounters Date Type Department Care Team (Late st Contact Info) Description 06/01/2024 3:20 PM EDT Anticoagulation Pharmacy, [place] [address] [place] [address] [facility] [address] [facility], [place] [address] 07/01/2024 1:00 PM EDT Office Visit [facility] [address] [place] [address] Obdulio Valero MD [address] [place] [address] 07/08/2024 2:00 PM EDT Office Visit [facility] [address] [place] [address] Obdulio Valero MD [address] [place] [address] 07/15/2024 2:00 PM EDT Office Visit [facility] [address] [place] [address] Obdulio Valero MD [address] [place] [address] 07/26/2024 2:40 PM EDT Office Visit [facility] [address] [place] [address] David Jaramillo MD [address] [place] [address] 09/27/2024 4:00 PM EDT Office Visit Family Practice, [place] [address] [place] [address] Randy Garg MD [address] [place], [place] [address] Health Maintenance Due Date Last Done Comments Zoster Vaccines (2 of 3) 03/25/2013 01/28/2013 Depression Screening 12/01/2020 12/01/2019 Hepatitis B (2 of 2 - CpG 2-dose series) 10/17/2023 09/19/2023 COVID-19 Vaccine (2022- season) 2024 10/13/2023, 09/12/2022, [...] 1:09 PM 02/10/2019 2:36 PM This order reflects the patients wishes and were consensually agreed upon. * Full Code Date Activated Date Inactivated Comments 03/28/2014 1:49 PM 03/29/2014 2:58 PM This order r eflects the patients wishes and were consensually agreed upon. Healthcare Agents on File Name Relationship Healthcare Agent Relationshi p Communication Latia Pierrederrick Spouse Health Care Agent Care Teams Ping Pong Table Assembler Relationship Specialty Start Date End Date Randy Garg MD [address] [place] [address] PCP - General 01/26/03 documented as of this encounter
--- OUTSIDE RECORDS SUMMARY | 2024-11-05 21:50 | External Medical Summary | Summary of Care ---
Author Name Unknown Organization [facility] Address [address] [place] [address] Phone [phone] Care Team Providers Care Surgical Coder Name Role Phone Suman Simpson MD Primary Care Provider +1- [phone] Reason for Visit * Reason Comments eRx-Medication Refill Encounter Details Date Type Department Care Team (Late st Contact Info) Description 05/25/2024 Refill [facility] [address] [place] [address] Suman Simpson MD [address] [place] [address] Allergies Active Allergy Reactions Criticality [...] stage renal disease 01/27/2023 08/24/2023 Atherosclerosis of [place] co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 angina [...] mRNA, LNP-s, No Pre serve, 2-Dose Series ([employer]) 10/20/2021,02/28/2021,02/07/2021 COVID-19, MRNA-LNP, 23-24, P F, 30 MCG/0.3 mL, 12 YRS AND ABOVE, IM ([facility]) 10/13/2023 Covid-19, Mrna, Lnp-s, Pf, B [...] encounter Miscellaneous Notes * Telephone Encounter - Liberty Styles RPh - 05/25/2024 3:52 PM EDT Refused Prescriptions: Disp Refills Warfarin Sodium 2.5 MG Oral Tablet (Jantov*180 Ta*3 Sig: TAKE 1-2 TABLETS BY MOUTH DAILYRefused By: LIBERTY STYLES for Refusal: Duplicate Request------- documented in this encounter Plan of Treatment Upcoming Encounters Date Type Department Care Team (Late st Contact Info) Description 06/01/2024 3:20 PM EDT Anticoagulation Pharmacy, [address] [address] [facility] [address] [place] [address] 07/01/2024 1:00 PM EDT Office Visit [facility] [address] [place] [address] Obdulio Valero MD [address] [facility] [place] [address] 07/08/2024 2:00 PM EDT Office Visit [facility] [address] [facility] [place] [address] Obdulio Valero MD [address] [facility] [place] [address] 07/15/2024 2:00 PM EDT Office Visit [facility] [address] [place] [address] Obdulio Valero MD [address] [place] [address] 07/26/2024 2:40 PM EDT Office Visit Nephrology, [facility] [address] [facility] [place] [address] David Jaramillo MD [address] [facility] [place] [address] 09/27/2024 4:00 PM EDT Office Visit [facility] [place] [address] [place] [address] Suman Simpson MD [address] [place], [place] [address] Health Maintenance Due Date Last Done Comments [...] Agents on File Name Relationship Healthcare Agent [facility] Communication Latia Margaret Ignacioderrick Spouse Health Care Agent Care Teams Surgical Coder Relationship Specialty Start Date End Date Suman Simpson MD [address] [place] [address] PCP - General 01/26/03 documented as of this encounter
--- OUTSIDE RECORDS SUMMARY | 2024-11-05 21:50 | External Medical Summary ---
Author Name Unknown Address Unknown Organization [id number]:[facility] [place] - [address] [place] [address] Laboratory Report Ordering Provider Test Date Status 06/21/2024 12:46:00 Final Observation Date Value Abnormality Reference (Units ) Status CRP, low-sensitivity 06/21/2024 12:46:00 9 Above high normal <=5 (mg/L) Final Performing Location [facility] - [address] [place] [address]
--- OUTSIDE RECORDS SUMMARY | 2024-11-05 21:50 | External Medical Summary ---
Author Name Unknown Address Unknown Organization : Laboratory Report Ordering Provider Test Date Status LAURA BRANNON 06/01/2024 15:27:52 Final Therapeutic ranges for non-o perative patients:
Prophylaxsis/treatment of DVT: (Range:2.0-3.0)
Treatment of pulmonary embolism:(Range:2.0-3.0)
Prevention of systemic embolism from:
-tissue heart valves
-acute myocardial infarction
-valvular heart disease
-atrial fibrillation
(Range: 2.0-3.0)
Mechanical prosthetic valves: (Range: 2.5-3.5) Observation Date Value Abnormality Reference (Units ) Status INR in Capillary blood by Coagulation assay 06/01/2024 15:27:52 1.9 (INR) Final Performing Location
--- OUTSIDE RECORDS SUMMARY | 2024-11-05 21:50 | External Medical Summary ---
Author Name Unknown Address Unknown Organization K01:[facility] [place] [address] [place] [address] Laboratory Report Ordering Provider Test Date Status 06/21/2024 12:46:00 Final Observation Date Value Abnormality Reference (Units ) Status TSH 06/21/2024 12:46:00 2.64 0.27-4.20 (uIU/mL) Final Performing Location LABORATORY [facility] - [address] [place] [address]
--- OUTSIDE RECORDS SUMMARY | 2024-11-05 21:50 | External Medical Summary | Summary of Care ---
Author Name Unknown Organization [facility] Address [address] [place] [address] Phone [phone] Care Team Providers Care Outreach Librarian Name Role Phone Suman Simpson MD Primary Care Provider +1- [phone] Reason for Visit * Reason Comments Dosage Adjustment In Person (Anticoag Cl inic) Encounter Details Date Type Department Care Team (Latest Contact Info) Description 06/01/2024 3:20 PM EDT Anticoagulation Pharmacy, [place] [address] [place] [address] [facility] [address] [place] [address] Anticoagulation management encounter*; Atrial fibrillation, unspecified type (HCC) Allergies Active Allergy Reactions Criticality Noted Date Comments Metolazone 07/29/2021 Severe HYponatremia Morphine Sulfate Other (Please comment) 006 hallucinate Oxycodone Other (Please comment) 07/07/2006 Hallucinate Penicillins 07/21/2011 Hallucinate documented as of this encounter (statuses as of 06/01/2024) Medications Medication Sig Dispensed Refills Start Date [...] 2017 classification ([facility]) Inhale 1 Puff by mouth in [...] chronic dialysis ([facility]) Take 2 tablets in AM and 2 tablet in PM. 360 Tablet 3 4 Active Warfarin Sodium 2.5 MG Oral Tablet (Jantoven) TAKE 1-2 TABLETS BY MOUTH DAILY. According to anticoagulation clinic 180 Tablet 3 4 Active documented as of this encounter (statuses as of 06/01/2024) Active Problems Problem Noted Date Diagnosed Date [...] as of this encounter (statuses as of 06/01/2024) Resolved Problems Problem Noted Date Diagnosed Date Resolved Date Hypertensive chronic kidney disease with stage 5 chronic kidney disease or end stage renal disease 01/27/2023 08/24/2023 Atherosclerosis of [place] 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 09/13/2021 [...] as of this encounter (statuses as of 06/01/2024) Immunizations Name Administration Dates Next Due COVID-19 mRNA, LNP-s, No Pre serve, 2-Dose Series ([employer]) 10/20/2021,02/28/2021,02/07/2021 COVID-19, MRNA-LNP, 23-24, P F, 30 MCG/0.3 mL, 12 YRS AND ABOVE, IM ([facility]) 10/13/2023 Covid-19, Mrna, Lnp-s, Pf, B ivalent, 30 Mcg, IM, 12 yrs and above ([employer]) 09/12/2022 Hepatitis B Vaccine, Recombi nant, Adjuvanted, [...] Progress Notes * Helen Boyer RPh - 06/01/2024 3:25 PM EDT Images from the original note [...] Bruising Objective Current Warfarin Dose As of 06/01/2024 Warfarin maintenance plan: 5 mg (2.5 mg x 2) every Tue; 2.5 mg (2.5 mg x 1) all other days INR Result As of 06/01/2024 INR goal: 2.0-3.0 INR used for dosin.9 (06/01/2024) Assessment & Plan Warfarin Plan As of 06/01/2024 Full warfarin instructions: 5 mg every Tue, Fri; 2.5 mg all other days Next INR check: 07/14/2024 Repeat PT/INR in 6 week(s) Weekly dose: not changed Additional Dosing Information: Description Takes in AM Pt prefers OFS vs GML (venipuncture) Helen Boyer [facility] Clinical Pharmacist 06/01/2024, 3:25 PM documented in this encounter Plan of Treatment Upcoming Encounters Date Type Department Care Team (Late st Contact Info) Description 07/01/2024 1:00 PM EDT Office Visit [facility] [address] [address] Obdulio Valero MD [address] [place] [address] 07/08/2024 2:00 PM EDT Office Visit [facility] 132 [place] [address] Obdulio Valero MD 132 [place] [address] 07/14/2024 3:20 PM EDT [facility] [place] [address] [place] [address] [facility] [address] [place] [address] 07/15/2024 2:00 PM EDT Office Visit [facility] [address] [place] [address] Obdulio Valero MD 132 [place] [address] 07/26/2024 2:40 PM EDT Office Visit Nephrology, [facility] 200 [facility] [place] [address] David Jaramillo MD 200 [place] [address] 09/27/2024 4:00 PM EDT Office Visit [facility] [address] [place] [address] Suman Simpson MD [address] [place] [address] Health Maintenance Due Date Last Done Comments [...] Comments INR FINGERSTICK, POINT OF CARE STAT 06/01/2024 3:27 PM EDT Atrial fibrillation, unspecified type (HCC) Anticoagulation management encounter documented in this encounter Results * INR FINGERSTICK, POINT OF CARE (06/01/2024 3:27 PM EDT) Fingerstick INR 1.9 INR 3:29 PM EDT [facility] Blood 06/01/2024 3:27 PM EDT 06/01/2024 3:29 PM EDT Narrative [facility] [id number] - 06/01/2024 3:29 PM EDT Therapeutic ranges for non-operative patients: Prophylaxsis/treatment of DVT: (Range:2.0-3.0) Treatment of pulmonary embolism:(Range:2.0-3.0) Prevention of systemic embolism from: -tissue heart valves -acute myocardial infarction -valvular heart disease -atrial fibrillation (Range: 2.0-3.0) Mechanical prosthetic valves: (Range: 2.5-3.5) Helen Boyer [facility] LAB POINT OF CARE TEST DOCKED DEVICE UNSOLICITED RESULTS [facility] [address] [place] [address] documented in this encounter Visit Diagnoses Diagnosis [...] Trejo Spouse Health Care Agent Care Teams Outreach Librarian Relationship Specialty Start Date End Date Suman Simpson MD [address] [place] [id number] PCP - General 01/26/03 documented as of this encounter
--- OUTSIDE RECORDS SUMMARY | 2024-11-05 21:50 | External Medical Summary ---
Author Name Unknown Address Unknown Organization [id number]:LABORATORY [facility] [place] - [address] [facility] [address] Laboratory Report Ordering Provider Test Date Status 06/21/2024 12:46:00 Final Observation Date Value Abnormality Reference (Units ) Status BUN 06/21/2024 12:46:00 36 Above high normal 6-20 (mg/dL) Final Creatinine 06/21/2024 12:46:00 3.3 Above high normal 0.6-1.2 (mg/dL) Final Glomerular filtration rate/1.73 sq M.predicted [Volume Rate/Area] in Serum, Plasma or Blood by Creatinine-based formula (CKD-EPI) 06/21/2024 12:46:00 18 Below low normal >=60 (mL/min) Final eGFR is calculated based on the CKD-EPI 2020 equation. Sodium 06/21/2024 12:46:00 140 135-146 (m mol/L) Final Potassium 06/21/2024 12:46:00 4.5 3.5-5.1 (m mol/L) Final Cl 06/21/2024 12:46:00 99 98-107 (mm ol/L) Final CO2 06/21/2024 12:46:00 27 22-32 (mmo l/L) Final Anion gap 06/21/2024 12:46:00 14 7-15 (mmol /L) Final Glucose 06/21/2024 12:46:00 240 Above high normal 70 -120 (mg/dL) Final Albumin 06/21/2024 12:46:00 4.2 3.8-5.0 (g /dL) Final AST (Aspartate aminotransferase) 06/21/2024 12:46:00 31 10-50 (U/L) Fin al Result may be falsely elevat ed due to hemolysis. Alk Phos 06/21/2024 12:46:00 87 35-130 (U/ L) Final Bilirubin, Total 06/21/2024 12:46:00 0.6 <=1 .2 (mg/dL) Final Calcium 06/21/2024 12:46:00 9.9 8.4-10.2 ( mg/dL) Final Protein 06/21/2024 12:46:00 5.9 Below low normal 6.0 -8.3 (g/dL) Final ALT (Alanine aminotransferase) 06/21/2024 12:46:00 27 10-50 (U/L) Agapito worrell Performing Location LAB[facility]ATORY [facility] [place] - [facility] [address] [facility] [address]
--- OUTSIDE RECORDS SUMMARY | 2024-11-05 21:50 | External Medical Summary ---
Author Name Unknown Address Unknown Organization [id number]:LABORATORY [place] [address] [place] [address] Laboratory Report Ordering Provider Test Date Status 06/21/2024 12:46:00 Final Observation Date Value Abnormality Reference (Units ) Status WBC, Total 06/21/2024 12:46:00 6.03 4.00-10.80 (K/uL) Final RBC 06/21/2024 12:46:00 3.86 4.50-5.25 (M/uL) Final Hemoglobin 06/21/2024 12:46:00 12.0 Below low normal 14.0-16.8 (g/dL) Final HCT 06/21/2024 12:46:00 39.5 Below low normal 40.0-48.4 (%) Final MCV 06/21/2024 12:46:00 102.3 82.0-99.5 (fL) Final MCH 06/21/2024 12:46:00 31.1 27.0-34.0 (pg) Final MCHC 06/21/2024 12:46:00 30.4 32.0-36.0 (g/dL) Final RDW 06/21/2024 12:46:00 15.3 11.5-15.5 (%) Final Platelets 06/21/2024 12:46:00 107 Below low normal 140-400 (K/uL) Final MPV 06/21/2024 12:46:00 12.1 6.6-11.1 (fL) Final Nucleated erythrocytes/100 leukocytes [Ratio] in Blood by Automated count 06/21/2024 12:46:00 0 <=0 (/100 WBCs) Final Performing Location LABORATORY [facility] [place] - [address] [place] [address]
--- OUTSIDE RECORDS SUMMARY | 2024-11-05 21:50 | External Medical Summary ---
Author Name Unknown Address Unknown Organization [id number]:LABORATORY [facility] [place] - 100 [facility] [place] [address] Laboratory Report Ordering Provider Test Date Status SULMA,06/21/2024 12:46:00 Final Observation Date Value Abnormality Reference (Units ) Status SYNC LEUKOCYTES IN BLOOD BY AUTOMATED COUNT 06/21/2024 12:46:00 6.03 4.00-10.80 (K/uL) Final Segs 06/21/2024 12:46:00 68.6 40.0-75.0 (%) Final Lymphs % 06/21/2024 12:46:00 18.2 18.0-42.0 (%) Final Monos 06/21/2024 12:46:00 7.5 1.0-11.0 (%) Final Eosinophils 06/21/2024 12:46:00 3.8 0.0-6.0 (%) Final Basos 06/21/2024 12:46:00 1.2 0.0-2.0 (%) Final Immature Granulocyte, Percent 06/21/2024 12:46:00 0.7 0.0-2.0 (%) Final Absolute Segs 06/21/2024 12:46:00 4.14 1.80-7.70 (K/uL) Final Lymphs, absolute 06/21/2024 12:46:00 1.10 1.00-4.80 (K/ul) Final Monos, Abs 06/21/2024 12:46:00 0.45 0.00-1.10 (K/uL) Final Eos, Abs 06/21/2024 12:46:00 0.23 0.00-0.70 (K/uL) Final Basos, Abs 06/21/2024 12:46:00 0.07 0.00-0.20 (K/uL) Final Immature Granulocytes, Number 06/21/2024 12:46:00 0.04 0.00-0.20 (K/uL) Final Performing Location LABORATORY [facility] [place] - [facility] [address] [facility] [address]
--- OUTSIDE RECORDS SUMMARY | 2024-11-05 21:50 | External Medical Summary ---
Author Name Unknown Address Unknown Organization K01:LABORATORY [facility] [place] - [address] [place] [address] Laboratory Report Ordering Provider Test Date Status 06/21/2024 12:46:00 Final Observation Date Value Abnormality Reference (Units ) Status Erythrocyte sedimentation rate by Photometric method 06/21/2024 12:46:00 24 Above high normal <20 (mm/hour) Final Performing Location LABORATORY [facility] [place] - [address] [place] [address]
--- OUTSIDE RECORDS SUMMARY | 2024-11-05 21:50 | External Medical Summary | Summary of Care ---
Author Name Unknown Organization [facility] Address [address] [place] [address] Phone [phone] Care Team Providers Care Furnace Fitter Name Role Phone Suman Simpson MD Primary Care Provider +1- [phone] Reason for Visit * Reason Onset Date Comments FYI 05/24/2024 Encounter Details Date Type Department Care Team (Late st Contact Info) Description 05/24/2024 Telephone [facility] [address] [place] [address] Suman Simpson MD [address] [place] [address] FYI Allergies Active Allergy Reactions Criticality Noted Date Comments Metolazone 07/29/2021 Severe HYponatremia Morphine Sulfate Other (Please comment) 006 hallucinate Oxycodone Other (Please comment) 07/07/2006 Hallucinate Penicillins 07/21/2011 Hallucinate documented as of this encounter (statuses as of 05/24/2024) Medications Medication Sig Dispensed Refills Start Date [...] B, by GOLD 2017 classification ([facility]) Inhale 1 Puff by mouth in the morning. 180 Each 3 03/07/2024 Active Gabapentin 100 MG Oral Capsule (Neurontin) Take 1 capsule by mouth twice per day. 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 360 Tablet 3 05/13/2024 Active Warfarin Sodium 2.5 MG Oral Tablet (Jantoven) TAKE 1-2 TABLETS BY MOUTH DAILY 180 Tablet 3 05/23/2024 Active documented as of this encounter (statuses as of 05/24/2024) Active Problems Problem Noted Date Diagnosed Date [...] as of this encounter (statuses as of 05/24/2024) Resolved Problems Problem Noted Date Diagnosed Date Resolved Date Hypertensive chronic kidney disease with stage 5 chronic kidney disease or end stage renal disease 01/27/2023 08/24/2023 Atherosclerosis of 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 09/13/2021 [...] as of this encounter (statuses as of 05/24/2024) Immunizations Name Administration Dates Next Due COVID-19 mRNA, LNP-s, No Pre serve, 2-Dose Series ([employer]) 10/20/2021,02/28/2021,02/07/2021 COVID-19, MRNA-LNP, 23-24, P F, 30 MCG/0.3 mL, 12 YRS AND ABOVE, IM [facility]) 10/13/2023 Covid-19, Mrna, Lnp-s, Pf, [...] encounter Miscellaneous Notes * Telephone Encounter - Carmencita Mccurdy CPhT - 05/24/2024 10:46 AM EDT Pt calling to request Warfarin Sodium 2.5 MG Oral Tablet . Informed pt that RX is available at their pharmacy. Pt verbalized understanding and stated they will check with their pharmacy regarding this medication. Thank you, Carmencita Mccurdy CPhT [employer] [facility] 05/24/2024,10:46 AM documented in this encounter Plan of Treatment Upcoming Encounters Date Type Department Care Team (Late st Contact Info) Description 06/01/2024 3:20 PM EDT Anticoagulation Pharmacy, [address] [address] [place] [address] [place] [address] 07/01/2024 1:00 PM EDT Office Visit [facility] [address] [facility] [place] [address] Obdulio Valero MD [address] [facility] [place] [address] 07/08/2024 2:00 PM EDT Office Visit [facility] [address] [facility] [address] Obdulio Valero MD [address] [place] [address] 07/15/2024 2:00 PM EDT Office Visit [facility] [address] [place] [address] Obdulio Valero MD [address] [place] [address] 07/26/2024 2:40 PM EDT Office Visit Nephrology, [facility] [address] [place], [place] [address] David Jaramillo MD 200 [facility] [place], [place] [address] 09/27/2024 4:00 PM EDT Office Visit [facility] [address] [place] [phone] Suman Simpson MD [address], [place] [phone] Health Maintenance Due Date Last Done Comments [...] Agents on File Name Relationship [facility] Communication Ltaia Trejo Spouse Health Care Agent Care Teams Furnace Fitter Relationship Specialty Start Date End Date Suman Simpson MD [address] [place] [address] PCP - General 01/26/03 documented as of this encounter
--- OUTSIDE RECORDS SUMMARY | 2024-11-05 21:51 | External Medical Summary | Summary of Care ---
Author Name Unknown Organization [facility] Address [address] [place] [address] Phone [phone] Care Team Providers Care Career Guidance Counselor Name Role Phone Suman Simpson MD Primary Care Provider +1- [phone] Reason for Visit * Reason Onset Date Comments Order Request 02/08/2024 DIABETIC SHOES Encounter Details Date Type Department Care Team (Late st Contact Info) Description 02/08/2024 Telephone [facility] [address] [place] [address] Suman Simpson MD [address] [place] [address] Order Request (DIABETIC SHOES ) Allergies Active Allergy Reactions Criticality Noted Date Comments Metolazone 07/29/2021 Severe HYponatremia Morphine Sulfate Other (Please comment) 006 hallucinate Oxycodone Other (Please comment) 07/07/2006 Hallucinate Penicillins 07/21/2011 Hallucinate documented as of this encounter (statuses as of 05/09/2024) Medications Medication Sig Dispensed Refills Start Date End Date Status VITAMIN C 500 MG PO TABS one tablet by mouth daily Active MULTIVITAL PO TABS one tablet by mouth daily Active Warfarin Sodium 2.5 MG Oral Tablet Take 1-2 tablets (2.5mg to 5mg) by mouth daily as directed by Coumadin clinic 180 Tablet 3 3 Active Probiotic Daily Oral Capsule Take 1 Capsule by mouth in the morning. Active Vitamin-B Complex Oral Tablet Take 1 Tablet by mouth in the morning. Active Sennosides-Docusat e Sodium 8.6-50 MG Oral Tablet Take 1 Tablet by mouth at bedtime as needed for Constipation. May increase to 2 as needed Discontinued(Re fill) Bisacodyl 5 MG Oral Tablet Delayed Release (Dulcolax) Take 1 Tablet by mouth daily as needed for Constipation. May take 1 or two tablets Discontinued(Re fill) ProAir HFA 108 (90 Base) MCG/ACT Inhalation Aerosol Solution Inhale by mouth 2 Puffs every 4 hours as needed for Wheezing. 18 g 3 2 024 Discontinued(Ramo lundberg preference/disc ontinuation) Polyethylene Glycol 3350 17 GM Oral Packet Take 1 Packet by mouth in the morning. Discontinued(Re fill) OneTouch Verio In Vitro Strip (Glucose Blood)Indications: Type 2 diabetes mellitus with hemoglobin A1c goal of less than 8.0% ([facility]) Use up to 4 times a day E11.9 100 Strip 11 3 024 Discontinued(Re fill) Isosorbide Dinitrate 20 MG Oral Tablet (Isordil) TAKE 1 TABLET BY MOUTH IN THE MORNING AND 1 TABLET BEFORE BEDTIME 180 Tablet 3 3 Discontinued Tamsulosin HCl 0.4 MG Oral Capsule (Flomax)Indication s:BPH with obstruction/lower urinary tract symptoms Take 1 Capsule by mouth in the morning. 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 360 Tablet 3 3 024 Discontinued(Re fill) Fluticasone Furoate-Vilanterol 100-25 MCG/ACT Inhalation Aerosol Powder Breath Activated (BREO ellipta) Inhale 1 Puff by mouth in the morning. 180 Each 3 3 024 Discontinued(Re fill) Losartan Potassium 25 MG Oral Tablet (Cozaar) Take 1 Tablet by mouth in the morning. 90 Tablet 3 3 024 Discontinued(Re fill) Allopurinol 300 MG Oral Tablet (Zyloprim)Indicati ons:Gout, unspecified cause, unspecified chronicity, unspecified site Take 1 tab by mouth 3 days per week after dialysis 4 024 Discontinued glipiZIDE 5 MG Oral Tablet (Glucotrol) take 1 tablet by mouth once per day 4 024 Discontinued Levothyroxine Sodium 88 MCG Oral Tablet (Levoxyl)Indicatio ns:Other specified hypothyroidism TAKE ONE TABLET BY MOUTH EVERY MORNING AT LEAST 30 MINUTES PRIOR TO BREAKFAST OR OTHER MEDICATIONS 90 Tablet 1 4 024 Discontinued(Re fill) Gabapentin 100 MG Oral Capsule (Neurontin) Take 1 capsule by mouth 3 days per week after dialysis 270 Capsule 1 4 024 Discontinued(Ne dication List Clean Up) Cephalexin 500 MG Oral CapsuleIndications :Acute non-recurrent frontal sinusitis Take 1 Capsule by mouth in the morning and 1 Capsule before bedtime. Do all this for 7 days. 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 09/18/2023 Last Assessment & Plan: -Tues, , Thursday COPD, group B, by GOLD [...] as of this encounter (statuses as of 05/09/2024) Resolved Problems Problem Noted Date Diagnosed Date Resolved Date Hypertensive chronic kidney disease with stage 5 chronic kidney disease or end stage renal disease 01/27/2023 08/24/2023 Atherosclerosis of [place] 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 09/13/2021 [...] as of this encounter (statuses as of 05/09/2024) Immunizations Name Administration Dates Next Due COVID-19 mRNA, LNP-s, No Pre serve, 2-Dose Series ([employer]) 10/20/2021,02/28/2021,02/07/2021 COVID-19, MRNA-LNP, 23-24, P F, 30 MCG/0.3 mL, 12 YRS AND ABOVE, IM ([employer] [place]) 10/13/2023 Covid-19, Mrna, Lnp-s, Pf, B ivalent, 30 Mcg, IM, 12 yrs and above ([employer]) 09/12/2022 Hepatitis B Vaccine, Recombi nant, Adjuvanted, [...] Notes * Telephone Encounter - Tereza Marrero CCMA - 02/09/2024 10:43 AM EDT Note is faxed to foot care center as requested. * Telephone Encounter - Suman Simpson MD - 02/08/2024 5:39 PM EDT Needs OV notes. Can we review at 03/07/24 visit? * Telephone Encounter - Elizabeth Brush LPN - 02/08/2024 4:18 PM EDT Can an order be placed? Thank you! * Telephone Encounter - Cherelle Barbosa OSA - 02/08/2024 4:08 PM EDT Patient's daughter called asking for an order for DM shoes secondary to DM faxed to [facility] at [phone]. documented in this encounter Plan of Treatment Upcoming Encounters Date Type Department Care Team (Late st Contact Info) Description 06/01/2024 3:20 PM EDT Anticoagulation Pharmacy, [place] [address] [place] [address] [place], [facility] [address] [place] [address] 07/01/2024 1:00 PM EDT Office Visit Orthopaedics [address] [place] [address] Obdulio Valero MD [address] [place] [address] 07/08/2024 2:00 PM EDT Office Visit [facility] [address] [facility] [place] [address] Obdulio Valero MD [address] [place] [address] 07/15/2024 2:00 PM EDT Office Visit [facility] [address] [place] [address] Obdulio Valero MD [address] [place] [address] 07/26/2024 2:40 PM EDT Office Visit Nephrology, [facility] [address] [facility] [place] [address] David Jaramillo MD [address] [place] [address] 09/27/2024 4:00 PM EDT Office Visit [facility] [address] [place] [phone] Suman Simpson MD [address] [place] [address] Health Maintenance Due Date Last Done Comments [...] Trejo Spouse Health Care Agent Care Teams Career Guidance Counselor Relationship Specialty Start Date End Date Suman Simpson MD [address] [phone] PCP - General 01/26/03 documented as of this encounter
--- OUTSIDE RECORDS SUMMARY | 2024-11-05 21:51 | External Medical Summary | Summary of Care ---
Author Name Unknown Organization [facility] Address [address] [place] [address] Phone [phone] Care Team Providers Care International Marketing Specialist Name Role Phone Suman Simpson MD Primary Care Provider +1- [phone] Encounter Details Date Type Department Care Team (Late st Contact Info) Description 05/23/2024 Population Health External Data Unspecified Department Allergies [...] 1 or two tablets 30 Tablet 11 03/07/2024 Active glipiZIDE 5 MG Oral Tablet (Glucotrol)Indicatio ns:Type 2 diabetes mellitus with hemoglobin A1c goal of less than 8.0% ([facility]) Take 1 Tablet by mouth in the [...] A1c goal of less than 8.0% ([facility]) Use up to 4 times a day [...] in the morning. 90 Capsule 03/07/2024 Active Breo Ellipta 100-25 MCG/ACT Inhalation [...] stage renal disease 01/27/2023 08/24/2023 Atherosclerosis of 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 09/13/2021 [...] mRNA, LNP-s, No Pre serve, 2-Dose Series ([employer]) 10/20/2021,02/28/2021,02/07/2021 COVID-19, MRNA-LNP, 23-24, P F, 30 MCG/0.3 mL, 12 YRS AND ABOVE, IM ([facility]) 10/13/2023 Covid-19, Mrna, Lnp-s, Pf, [...] Description 06/01/2024 3:20 PM EDT [facility] [place] [address] [facility] [address] [facility] [address] [facility] [address] 07/01/2024 1:00 PM EDT Office [facility] [address] [facility] [place] [address] Obdulio Valero MD [address] [place] [address] 07/08/2024 2:00 PM EDT Office Visit [facility] [address] [place] [address] Obdulio Valero MD [address] [place] [address] 07/15/2024 2:00 PM EDT Office Visit [facility] [address] [place] [address] Obdulio Valero MD [address] [place] [address] 07/26/2024 2:40 PM EDT Office Visit Nephrology, [facility] [address] [place] [address] David Jaramillo MD [address] [place] [address] 09/27/2024 4:00 PM EDT Office Visit [facility] [address] [place] [facility] [place] [phone] Suman Simpson MD [address] [place], [place] [phone] Health Maintenance Due Date Last Done Comments Zoster Vaccines (2 of 3) 03/25/2013 01/28/2013 Depression Screening 12/01/2020 12/01/2019 Hepatitis B (2 of 2 - CpG 2-dose series) 10/17/2023 09/19/2023 COVID-19 Vaccine (2022-24 season) 2024 10/13/2023, 09/12/2022, [...] Agents on File Name Relationship Healthcare Agent [facility] p Communication Latia Trejo Spouse Health Care Agent Care Teams International Marketing Specialist Relationship Specialty Start Date End Date Suman Simpson MD [address] [place] [address] PCP - General 01/26/03 documented as of this encounter
--- OUTSIDE RECORDS SUMMARY | 2024-11-05 21:51 | External Medical Summary | Summary of Care ---
Author Name Unknown Organization [facility] Address [address] [place] [address] Phone [phone] Care Team Providers Care Pool Hall Inspector Name Role Phone Randy Garg MD Primary Care Provider [phone]- [phone] Reason for Visit * Reason Comments eRx-Medication Refill Encounter Details Date Type Department Care Team (Late st Contact Info) Description 05/22/2024 Refill [facility] [address] [place] [address] Randy Garg MD [address] [place] [address] Allergies Active Allergy Reactions Criticality Noted Date Comments Metolazone 07/29/2021 Severe HYponatremia Morphine Sulfate Other (Please comment) 006 hallucinate Oxycodone Other (Please comment) 07/07/2006 Hallucinate Penicillins 07/21/2011 Hallucinate documented as of this encounter (statuses as of 05/23/2024) Medications Medication Sig Dispensed Refills Start Date [...] s:COPD, group B, by GOLD 2017 classification ([facility]) Inhale 1 Puff by mouth in the morning. 180 Each 3 4 Active Gabapentin 100 MG Oral Capsule (Neurontin) Take 1 capsule by mouth twice per day. 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 360 Tablet 3 4 Active Warfarin Sodium 2.5 MG Oral Tablet (Jantoven) TAKE 1-2 TABLETS BY MOUTH DAILY 180 Tablet 3 4 Active Warfarin Sodium 2.5 MG Oral Tablet Take 1-2 tablets (2.5mg to 5mg) by mouth daily as directed by Coumadin clinic 180 Tablet 3 3 05/23/20 24 Discontinued documented as of this encounter (statuses as of 05/23/2024) Active Problems Problem Noted Date Diagnosed Date [...] as of this encounter (statuses as of 05/23/2024) Resolved Problems Problem Noted Date Diagnosed Date Resolved Date Hypertensive chronic kidney disease with stage 5 chronic kidney disease or end stage renal disease 01/27/2023 08/24/2023 Atherosclerosis of 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 [...] as of this encounter (statuses as of 05/23/2024) Immunizations Name Administration Dates Next Due COVID-19 mRNA, LNP-s, No Pre serve, 2-Dose Series ([facility]) 10/20/2021,02/28/2021,02/07/2021 COVID-19, MRNA-LNP, 23-24, P F, 30 MCG/0.3 mL, 12 YRS AND ABOVE, IM [facility] 10/13/2023 Covid-19, Mrna, Lnp-s, Pf, B ivalent, 30 Mcg, IM, 12 yrs and above ([facility]) 09/12/2022 Hepatitis B Vaccine, Recombi nant, Adjuvanted, [...] encounter Miscellaneous Notes * Telephone Encounter - Guy Juarez [facility] - 05/23/2024 1:08 PM EDT Signed Prescriptions: Disp Refills Warfarin Sodium 2.5 MG Oral Tablet (Jantov*180 Ta*3 Sig: TAKE 1-2 TABLETS BY MOUTH DAILYAuthorizing Provider: RANDY GARG User: GUY JUAREZ T documented in this encounter Plan of Treatment Upcoming Encounters Date Type Department Care Team (Late st Contact Info) Description 06/01/2024 3:20 PM EDT Anticoagulation Pharmacy, [address] [address] [facility] [address] [place] [address] 07/01/2024 1:00 PM EDT Office Visit [facility] [address] [place] [address] Obdulio Valero MD [address] [place] [address] 07/08/2024 2:00 PM EDT Office Visit [facility] [address] [place] [address] Obdulio Valero MD [address] [place] [address] 07/15/2024 2:00 PM EDT Office Visit [facility] [address] [place] [address] Obdulio Valero MD [address] [place] [address] 07/26/2024 2:40 PM EDT Office Visit Nephrology, [facility] [address] [facility] [place] [address] David Jaramillo MD [address] [facility] [place] [address] 09/27/2024 4:00 PM EDT Office Visit [facility] [address] [place] [address] Randy Garg MD [address], [place] [id number] Health Maintenance Due Date Last Done Comments [...] Agents on File Name Relationship Healthcare Agent [facility] p Communication Latia Trejo Spouse Health Care Agent Care Teams Pool Hall Inspector Relationship Specialty Start Date End Date Randy Garg MD [address] [place] [address] PCP - General 01/26/03 documented as of this encounter
--- OUTSIDE RECORDS SUMMARY | 2024-11-05 21:51 | External Medical Summary | Summary of Care ---
Author Name Unknown Organization [facility] Address [address] [place] [address] Phone [phone] Care Team Providers Care Print Production Coordinator Name Role Phone Suman Simpson MD Primary Care Provider [phone]- [phone] Reason for Visit * Reason Onset Date Comments Med Request 05/13/2024 Encounter Details Date Type Department Care Team (Late st Contact Info) Description 05/13/2024 Telephone [facility] [address] [place] [address] Suman Simpson MD [address] [place] [address] Med Request Allergies Active Allergy Reactions Criticality Noted Date Comments Metolazone 07/29/2021 Severe HYponatremia Morphine Sulfate Other (Please comment) 006 hallucinate Oxycodone Other (Please comment) 07/07/2006 Hallucinate Penicillins 07/21/2011 Hallucinate documented as of this encounter (statuses as of 05/13/2024) Medications Medication Sig Dispensed Refills Start Date End Date Status VITAMIN C 500 MG PO TABS one tablet by mouth daily Active MULTIVITAL PO TABS one tablet by mouth daily Active Warfarin Sodium 2.5 MG Oral Tablet Take 1-2 tablets (2.5mg to 5mg) by mouth daily as directed by Coumadin clinic 180 Tablet 3 02/17/2023 Active Probiotic Daily Oral Capsule Take 1 [...] 03/07/2024 Active glipiZIDE 5 MG Oral Tablet (Glucotrol)Indicati [...] to 2 as needed 30 Tablet 11 03/07/2024 Active Tamsulosin HCl 0.4 MG Oral [...] 03/10/2024 Active Torsemide 100 MG Oral Tablet (Demadex)Indication s: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 360 Tablet 3 03/07/2024 05/13/20 24 Discontinu ed(Refill) documented as of this encounter (statuses as of 05/13/2024) Active Problems Problem Noted Date Diagnosed Date [...] as of this encounter (statuses as of 05/13/2024) Resolved Problems Problem Noted Date Diagnosed Date Resolved Date Hypertensive chronic kidney disease with stage 5 chronic kidney disease or end stage renal disease 01/27/2023 08/24/2023 Atherosclerosis of 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 09/13/2021 [...] as of this encounter (statuses as of 05/13/2024) Immunizations Name Administration Dates Next Due COVID-19 mRNA, LNP-s, No Pre serve, 2-Dose Series ([employer]) 10/20/2021,02/28/2021,02/07/2021 COVID-19, MRNA-LNP, 23-24, P F, 30 MCG/0.3 mL, 12 YRS AND ABOVE, IM ([employer]) 10/13/2023 Covid-19, Mrna, Lnp-s, Pf, B ivalent, [...] encounter Miscellaneous Notes * Telephone Encounter - Basia Welch LPN - 05/13/2024 10:49 AM EDT Pending Prescriptions: Disp Refills Torsemide 100 MG Oral Tablet (Demadex) 360 Ta*3 Sig: Take 2 tablets in AM and 2 tablet in PM. Last Visit: 03/07/2024 (in office), Visit date not found (telemedicine) Next Visit: 09/27/2024 Last date the medication was ordered: 03/07/24 Patient Active Problem List Diagnosis Diaphragmatic hernia Nephrotic range proteinuria Knee joint replacement status Advanced care planning/counseling discussion Sensorineural hearing loss, bilateral Gouty arthropathy History of colonic polyps Gastroesophageal reflux disease without esophagitis GUALLPA (dyspnea on exertion) Deviated nasal septum Degeneration of cervical intervertebral disc ABRAN (obstructive sleep apnea) History of rheumatoid arthritis Type 2 diabetes mellitus with hemoglobin A1c goal of less than 8.0% (HCC) HTN, goal below 140/90 Diabetes mellitus with nephropathy (HCC) Pulmonary HTN (HCC) Atrial fibrillation, unspecified type (HCC) Type 2 diabetes mellitus with stage 5 chronic kidney disease not on chronic dialysis, without long-term current use of insulin (HCC) 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) Hyponatremia Thrombocytopenia (HCC) End stage renal disease (HCC) Other iron deficiency anemias Diabetic neuropathy (HCC) Other specified hypothyroidism Rheumatoid arthritis (HCC) COPD, group B, by GOLD 2017 classification (HCC) 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) 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) (HCC) Secondary hyperparathyroidism of renal origin (HCC) Renal osteodystrophy Labs: Lab Results Component Value Date/Time CREATININE - [facility] 3.2 (H) 03/07/2024 04:18 PM CREATININE - [facility] 3.3 (H) 10/12/2020 01:30 PM CREATININE CLEARANCE - [facility] 113 07/25/2002 10:08 PM CREATININE, 24 HOUR URINE - [facility] 2.00 04/04/2010 11:20 AM CREATININE, 24 HOUR URINE - [facility] 2.070 (H) 07/25/2002 10:08 PM CREATININE, RANDOM URINE - [facility] 56 03/07/2024 04:19 PM CREATININE, RANDOM URINE - [facility] 57 10/12/2020 01:34 PM CREATININE-OUTSIDE LAB 3.82 (A) 03/22/2023 12:00 AM Lab Results Component Value Date/Time POTASSIUM - [facility] 3.9 03/07/2024 04:18 PM POTASSIUM - [facility] 4.3 10/12/2020 01:30 PM POTASSIUM-OUTSIDE LAB 3.9 03/22/2023 12:00 AM Lab Results Component Value Date/Time TSH - [facility] 1.84 05/12/2023 01:49 PM TSH - [facility] 2.17 06/14/2020 08:24 AM Lab Results Component Value Date/Time LDL CHOLESTEROL (CALCULATED) - [facility] 88 06/14/2020 08:24 AM LDL CHOLESTEROL (CALCULATED) - [facility] 50 07/30/2012 08:20 AM LDL CHOLESTEROL (DIRECT MEASURE) - [facility] 54 05/12/2023 01:49 PM LDL CHOLESTEROL (DIRECT MEASURE) - [facility] 82 06/26/2021 10:27 AM LDL CHOLESTEROL (DIRECT MEASURE) - [facility] 95 06/14/2020 08:24 AM LDL CHOLESTEROL (DIRECT MEASURE) - [facility] NOT APPLICABLE 06/14/2020 08:24 AM LDL CHOLESTEROL (DIRECT MEASURE) - [facility] 130 (H) 08/26/2018 08:19 AM Lab Results Component Value Date/Time ALT - [facility] 17 06/14/2020 08:24 AM Hemoglobin AIC Results: Lab Results Component Value Date/Time HEMOGLOBIN A1C - [facility] 7.2 (H) 03/07/2024 04:18 PM HEMOGLOBIN A1C - [facility] 8.6 (H) 01/13/2024 02:37 PM HEMOGLOBIN A1C - [facility] 7.0 (H) 05/12/2023 01:49 PM HEMOGLOBIN A1C - [facility] 5.7 (H) 06/14/2020 08:24 AM HEMOGLOBIN A1C - [facility] 5.8 (H) 06/06/2019 11:35 AM HEMOGLOBIN A1C - [facility] 5.8 (H) 08/26/2018 08:19 AM documented in this encounter Plan of Treatment Upcoming Encounters Date Type Department Care Team (Late st Contact Info) Description 06/01/2024 3:20 PM EDT Anticoagulation Pharmacy[address] [place] [id number] [facility] [address] [place] [facility] [place] [address] 07/01/2024 1:00 PM EDT Office Visit [facility] [address] [place] [address] Obdulio Valero MD [address] [place] [address] 07/08/2024 2:00 PM EDT Office Visit [facility] [address] [place] [address] Obdulio aVlero MD [address] [place] [address] 07/15/2024 2:00 PM EDT Office Visit [facility] [address] [place] [address] Obdulio Valero MD [address] [place] [address] 07/26/2024 2:40 PM EDT Office Visit Nephrology, [facility] [address] [place] [address] David Jaramillo MD [address] [place] [address] 09/27/2024 4:00 PM EDT [facility] [address] [facility] [id number] Suman Simpson MD [address] [place] [address] Health Maintenance Due Date Last Done Comments [...] kidney disease not on chronic dialysis (HCC) documented in this [...] Agents on File Name Relationship Healthcare Agent [facility] Communication Latia Trejo Spouse Health Care Agent Care Teams Print Production Coordinator Relationship Specialty Start Date End Date Suman Simpson MD [address], [place] [phone] PCP - General 01/26/03 documented as of this encounter
[2024-11-06 06:23] LABS: Hematocrit (blood only) 34.7 % (42.0-52.0); Hemoglobin 10.6 g/dl (14.0-18.0); Mean Corpuscular Hemoglobin 27.7 pg (25.0-34.0); Mean Corpuscular Hgb Conc 30.5 g/dL (32.0-36.0); Mean Corpuscular Volume 90.6 fL (80.0-100.0); Mean Platelet Volume 11.4 fL (9.4-12.4); Platelet Count 104 K/uL (130-400); RDW Coefficient of Variation 18.3 % (11.5-14.5); RDW Standard Deviation 59.7 fL (36.4-46.3); Red Blood Count 3.83 M/uL (4.70-6.10); White Blood Count 6.32 K/ul (4.8-10.8)
[2024-11-06 06:42] LABS: BUN Creatinine Ratio 20.6 (10-20); Calcium 9.8 mg/dl (8.6-10.3); Creatinine Clr Calc Pharmacy 17.8 ml/min; Potassium 3.6 mmol/L (3.5-5.1)
[2024-11-06 06:47] LABS: INR 1.8 (0.9-1.1)
--- NOTE | 2024-11-06 07:16 | Discharge Summary ---
Discharge Summary Date of Service November 06, 2024 Principal Dx & Hospital Course #1 = Principal Diagnosis (1) Toe ulcer: (2) Cellulitis of fourth toe, left: (3) Chronic venous insufficiency: (4) Diabetic peripheral neuropathy associated with type 2 diabetes mellitus: (5) CKD (chronic kidney disease), stage IV: (6) Atrial fibrillation: (7) Hypertension: (8) Chronic heart failure with preserved ejection fraction (HFpEF): (9) COPD (chronic obstructive pulmonary disease): (10) CAD (coronary artery disease): (11) Hypothyroidism: (12) Chronic anemia: (13) ABRAN (obstructive sleep apnea): Plan Mr. Trejo is an 84 year old male with PMH HTN, atrial fibrillation anticoagulated on warfarin, chronic HFpEF, DM II, previously CKD V on HD, current CKD IV no longer on HD, CAD, COPD, hypothyroidism, chronic thrombocytopenia, BENI, ABRAN on 2L oxygen at bedtime, gout, history amputation left second toe presented to ER with c/o left 4th toe edema, erythema and tenderness x 3 days. He was evaluated by Podiatry. MRI did not reveal osteomyelitis. Plan for 2 weeks po abx. On day of discharge, patient was at baseline, reporting that foot was feeling improved. Home health servies coordinated with CM. #Diabetic foot infection #Toe ulcer No leukocytosis. Lactate: 2.4, procalcitonin: 0.06, CRP: 2.7, ESR: 42 Left foot x-ray: No signs of osteomyelitis Prelim blood culture 1/2 bottles growing gram positive cocci clusters, wound cx pending Continue empiric Cefepime, daptomycin Podiatry consult: mri negative for osteo Transition to doxy and augmentin 12 more days # Diabetic peripheral neuropathy associated with type 2 diabetes mellitus: A1c: 7.9 on 09/27/2024 resume home regimen #CKD (chronic kidney disease), stage IV: Previous CKD V and was on dialysis. Current CKD IV No longer on HD Cr: 3.4 -> 3.6 today (Baseline Cr: 2.9-4.1 over past year, generally low 3s) Evaluated by nephro. Per Dr. Viera, at Cr baseline. Okay with continuing home Torsemide, losartan Daily standing weight - accurate I&Os needed Dialysis diet with 1.5 L daily FR # Atrial fibrillation: Chronic atrial fibrillation anticoagulated on warfarin Unlikely for OR per podiatry above but will hold afternoon dose of Coumadin with INR 3.0 resume home regimen #Hypertension: Continue losartan, metoprolol succinate # Chronic heart failure with preserved ejection fraction (HFpEF): Continue Torsemide as above # COPD (chronic obstructive pulmonary disease): Continue home inhalers, Duonebs QIDR PRN SOB or wheezing #CAD (coronary artery disease): Continue isosorbide, metoprolol succinate # Hypothyroidism: Continue levothyroxine #Chronic anemia: Chronic thrombocytopenia, plts at baseline Daily CBC #ABRAN (obstructive sleep apnea): Continue home O2 HS Notes For Next Care Provider Medication Changes From Visit Doxycyline BID x 12 more days Augmentin BID x 12 more days Recommended probiotic daily Admission HPI Per Admitting Provider Patient is 84 year old male with PMH HTN, atrial fibrillation anticoagulated on warfarin, chronic HFpEF, DM II, previously CKD V on HD, current CKD IV no longer on HD, CAD, COPD, hypothyroidism, chronic thrombocytopenia, BENI, ABRAN on 2L oxygen at bedtime, gout, history amputation left second toe presented to ER with c/o left 4th toe edema, erythema and tenderness x 3 days. States past 3 days noticed left 4th toe erythema and is having pain with ambulating. Reports got new pair of shoes and thinks shoes may have rubbed his toe. Denies other known injury or trauma. Uses cane and walker and wheelchair if needing to walk far. Reports chronic SOB with exertion and denies any acute worsening. Denies fever/chills, diaphoresis, N/V/D/C, GORDON, dizziness, CP, palpitations, cough, sore throat, rhinorrhea, abdominal pain, extremity weakness, extremity edema, urinary symptoms. Discharge Exam Constitutional WD/WN, vitals as above Respiratory normal respiratory effort, lungs clear to auscultation Cardiovascular irregular Skin clean dressing in place LLE Updated Medication List Medication Instructions Recorded Confirmed Type ascorbic acid (vitamin C) 500 mg 500 mg PO QAM 07/23/21 11/03/24 History tablet (Vitamin C) gabapentin 100 mg capsule 100 mg PO BID 07/23/21 11/03/24 History glipizide 5 mg tablet 5 mg PO DAILY 07/23/21 11/03/24 History isosorbide dinitrate 20 mg tablet 20 mg PO BID 07/23/21 11/03/24 History levothyroxine 88 mcg tablet 88 mcg PO QAM 07/23/21 11/03/24 History metoprolol succinate 100 mg 100 mg PO BID 07/23/21 11/03/24 History tablet,extended release 24 hr multivitamin 1 tab PO QAM 07/23/21 11/03/24 History pantoprazole 40 mg tablet,delayed 40 mg PO QAM 07/23/21 11/03/24 History release tamsulosin 0.4 mg capsule 0.4 mg PO QAM 07/23/21 11/03/24 History warfarin 2.5 mg tablet 2.5 mg PO UD 07/23/21 11/03/24 History torsemide 100 mg tablet 200 mg PO BID 09/12/21 11/03/24 History fluticasone furoate 100 1 inh inhalation DAILY 09/02/23 11/03/24 History mcg-vilanterol 25 mcg/dose inhalation powder (Breo Ellipta) albuterol sulfate 0.63 mg/3 mL 0.63 mg inhalation Q6H PRN 11/03/24 11/03/24 History solution for nebulization Shortness Of Breath Or Wheezing allopurinol 100 mg tablet 50 mg PO DAILY 11/03/24 11/03/24 History cholecalciferol (vitamin D3) 25 25 mcg PO DAILY 11/03/24 11/03/24 History mcg (1,000 unit) tablet losartan 25 mg tablet 25 mg PO DAILY 11/03/24 11/03/24 History Saccharomyces boulardii 250 mg 250 mg PO DAILY #30 caps 11/06/24 Rx capsule amoxicillin 875 mg-potassium 1 tab PO BIDM #23 tabs 11/06/24 Rx clavulanate 125 mg tablet doxycycline hyclate 100 mg capsule 100 mg PO BID #23 caps 11/06/24 Rx Hospital Stay Data Consultations 11/03/24 14:15 ED Decision to Admit Stat 11/03/24 14:43 Consult Podiatry Routine 11/03/24 15:00 Consult Nephrology Routine Diagnostic Imagining Performed 11/04/24 13:56 MRI Foot [MR foot LT w/o con] Routine Pending Results Patient Have Any Pending Studies at Discharge: No Discharge Instructions Given to Patient (Per Discharging Provider) You were admitted for foot infection. You underwent an MRI and it did not reveal bone infection of your left foot You were treated with IV antibiotics. You will complete 12 more days of oral antibiotics. -Doxycycline 100mg two times a day, your next dose is this evening -Augmentin 1 tablet two times a day, yournext dose is this evening Please take with a meal. Please consider taking a probiotic or yogurt with "probiotic colonies" Total Time Total Time Spent Total Time Spent (In Minutes): 35
[2024-11-06 07:41] VITALS: BP 165/87; RESP 16; TEMP 97.4; O2SAT 100
[2024-11-06] MEDS: AMOXICILLIN/CLAVULANATE 500 MG TAB PO SCH (08:11)
[2024-11-06] MEDS: SACCHAROMYCES BOULARDII 250 MG CAP PO SCH (08:11)
[2024-11-06] MEDS: DOXYCYCLINE HYCLATE 100 MG CAP PO SCH (08:11)
[2024-11-06 09:28] VITALS: PULSE 69
== END 2024-11-06 10:54 | disposition home health service (06) | DRG 638 ==
LOC: ED 11:22 → SUATTDRO 14:27 → 2W 14:27

== ENCOUNTER 2024-12-21 17:01 | Inpatient (IN) ==
[2024-12-21 17:54] LABS: Basophils # (auto) 0.05 K/uL (0.00-0.20); Basophils % (auto) 0.3 %; Eosinophils # (auto) 0.04 K/uL (0.00-0.50); Eosinophils % (auto) 0.3 %; Hematocrit (blood only) 34.9 % (42.0-52.0); Hemoglobin 10.8 g/dl (14.0-18.0); Immature Granulocytes % (auto) 1.3 %; Lymphocytes # (auto) 0.87 K/uL (1.20-3.40); Lymphocytes % (auto) 5.6 %; Mean Corpuscular Hemoglobin 27.1 pg (25.0-34.0); Mean Corpuscular Hgb Conc 30.9 g/dL (32.0-36.0); Mean Corpuscular Volume 87.7 fL (80.0-100.0); Mean Platelet Volume 11.8 fL (9.4-12.4); Monocytes # (auto) 1.08 K/uL (0.11-0.59); Neutrophils # (auto) 13.27 K/uL (1.40-6.50); Neutrophils % (auto) 85.5 %; Platelet Count 164 K/uL (130-400); RDW Coefficient of Variation 17.6 % (11.5-14.5); Red Blood Count 3.98 M/uL (4.70-6.10); White Blood Count 15.51 K/ul (4.8-10.8)
--- NOTE | 2024-12-21 17:54 | Emergency Department Note ---
Impression & Plan Cellulitis of lower extremity ED Provider Note Diagnosis: Right lower extremity cellulitis and wound infection Disposition: Admission CHIEF COMPLAINT: Wound infection HPI: Patient is an 84-year-old male presenting with complaint of right lower extremity wound infected. Patient has been following with wound care regularly. Patient went to the wound care clinic today found to have yellowish-green discharge from right rose wound. Patient was having fevers 101 Fahrenheit for family last evening. Patient denies any other signs of infection at this time. PAST MEDICAL HISTORY: See Below PAST SURGICAL HISTORY: See Below SOCIAL HISTORY: See Below HOME MEDICATIONS: See Below ALLERGIES: See Below VITALS: See Below PHYSICAL EXAMINATION: GENERAL: Well appearing, well nourished, NAD, non-toxic. EYE EXAM: Normal conjunctiva. OROPHARYNX: Moist mucus membranes. Grossly normal dentition. NECK: Supple, LUNGS: Clear to auscultation. Normal chest wall mechanics. HEART: NSR ABDOMEN: Abdomen soft, non-tender, normo-active bowel sounds, no masses, no rebound or guarding BACK: No CVA TTP. SKIN: Right rose with wound present with very minimal discharge present, erythema present UPPER EXTREMITIES: Upper extremities are grossly normal LOWER EXTREMITIES: Grossly normal, no edema. NEURO EXAM: A&O x3,, normal speech, moves all 4 extremities PSYCH: Cooperative MEDICAL DECISION MAKING: History obtained from: Patient, family ER Course: Patient is a 84-year-old male presenting from wound care with discharge present from right rose wound. Patient having yellow-greenish discharge present. Patient having fevers last evening. Patient not on any recent antibiotics. Patient has baseline neuropathy in the right leg. Patient found to have significant elevation of CRP and sed rate. Patient's CRP today is 10 when a month ago it was 2 on prior visit. Patient started on IV antibiotics. Patient's lactate is not elevated and is not septic. Patient has no free air on chest x-ray. Patient admitted to hospital service further treatment and evaluation Labs (independently interpreted) are significant for: Elevated CRP and sed rate Imaging results (independently interpreted): X-ray tib-fib no acute air, no acute fracture Medications given: Vancomycin Consultants: Hospitalist Triage Nursing notes reviewed and agree them. Vital Signs: reviewed and remarkable for: no significant abnormalities Past Med/Surg History Problem List (Updated 12/21/24 @ 23:36 by Thang Krueger DO) Cellulitis of lower extremity (Acute) Fever Venous stasis ulcers of both lower extremities Diabetic ulcer of left foot Skin ulcer of left foot including toes with fat layer exposed Diabetic foot infection (Acute) Chronic anemia Toe ulcer Chronic heart failure with preserved ejection fraction (HFpEF) CAD (coronary artery disease) Cellulitis of fourth toe, left Rash Diabetic ulcer of toe of right foot (Acute) Acute lower gastrointestinal bleeding (Acute) Symptomatic anemia (Acute) Elevated INR (Acute) ESRD on hemodialysis Anemia Lower GI bleed Status post partial amputation of foot Personal history of diabetic foot ulcer Diabetic peripheral neuropathy associated with type 2 diabetes mellitus Hypothyroidism Hyperlipidemia COPD (chronic obstructive pulmonary disease) Anemia Chronic Per PCP records- presumed anemia due to CKD- baseline Hgb usually around 10.5 Chronic venous insufficiency (Chronic) Hypertension Type 2 diabetes mellitus NIDDM CKD (chronic kidney disease) Stage 5CKD, follows with Dr. Jaramillo>"he thought it was stage 4" "ESRD... not on dialysis" per PCP records Atrial fibrillation On warfarin Medical History Sepsis CKD (chronic kidney disease), stage IV on hemodialysis in the past History of acute prostatitis Rheumatoid arthritis Per PCP records ABRAN (obstructive sleep apnea) Per PCP records A-V fistula lt side; did not start dialysis yet Thrombocytopenia Chronic, baseline low 100s per chart review Deaf Left Chronic back pain GERD (gastroesophageal reflux disease) BPH (benign prostatic hyperplasia) Surgical History History of repair of rotator cuff Left History of carpal tunnel release R/L History of total knee replacement R/L Fusion of spine Neck Fusion of spine Lumbar History of colonoscopy History of cardiac cath 2010 > no stents >[facility] Nausea and vomiting after administration of anesthetic agent Family History Mother Cancer Other Family history non-contributory Social History Smoking Status: Never smoker Second Hand Exposure: Yes (hx at work); Do You Dip or Chew Tobacco: No; Hx Alcohol Use: No Hx Substance Use: No Preferred Language: Burmese Communication Ability: Effective Mammal Control Agent Required: No Beliefs That Will Affect Care: None marital status: Current Living Situation: Spouse and Family Current Living Situation Comment: lives w/ and daughter, Juliana Feels Safe at Home: Yes Diet: low salt Assistive Devices: Cane, Oxygen - at Night, Walker and Wheelchair Allergies Allergies Allergy/AdvReac Type Severity Reaction Status Date / Time codeine Allergy Confusion Verified 12/14/24 14:09 metolazone AdvReac Severe SEVERE Verified 12/14/24 14:09 HYPONATREMIA morphine AdvReac Intermediate Hallucinati Verified 12/14/24 14:09 ons oxycodone AdvReac Intermediate Hallucinati Verified 12/14/24 14:09 ons Penicillins AdvReac Intermediate Hallucinati Verified 12/14/24 14:09 ons Home Meds Home Medications Medication Instructions Recorded Confirmed ascorbic acid (vitamin C) 500 mg 500 mg PO QAM 07/23/21 12/21/24 tablet (Vitamin C) gabapentin 100 mg capsule 100 mg PO BID 07/23/21 12/21/24 glipizide 5 mg tablet 5 mg PO QAM 07/23/21 12/21/24 isosorbide dinitrate 20 mg tablet 20 mg PO BID 07/23/21 12/21/24 levothyroxine 88 mcg tablet 88 mcg PO QAM 07/23/21 12/21/24 metoprolol succinate 100 mg 100 mg PO AMHS 07/23/21 12/21/24 tablet,extended release 24 hr multivitamin 1 tab PO QAM 07/23/21 12/21/24 pantoprazole 40 mg tablet,delayed 40 mg PO QAM 07/23/21 12/21/24 release tamsulosin 0.4 mg capsule 0.4 mg PO QAM 07/23/21 12/21/24 torsemide 100 mg tablet 200 mg PO BID 09/12/21 12/21/24 fluticasone furoate 100 1 inh inhalation DAILY 09/02/23 12/21/24 mcg-vilanterol 25 mcg/dose inhalation powder (Breo Ellipta) albuterol sulfate 0.63 mg/3 mL 0.63 mg inhalation Q6H PRN 11/03/24 12/21/24 solution for nebulization Shortness Of Breath Or Wheezing allopurinol 100 mg tablet 50 mg PO DAILY 11/03/24 12/21/24 cholecalciferol (vitamin D3) 25 25 mcg PO DAILY 11/03/24 12/21/24 mcg (1,000 unit) tablet losartan 25 mg tablet 25 mg PO DAILY 11/03/24 12/21/24 warfarin 2.5 mg tablet 2.5 mg PO UD 12/06/24 12/21/24 Previous Rx's Medication Instructions Recorded Saccharomyces raodii 250 mg 250 mg PO DAILY #30 caps 11/06/24 capsule Results & Data (ED) Vital Signs Vital Signs - 24 hr 12/21/24 17:07 12/21/24 17:14 12/21/24 17:20 Temperature 36.8 C Temperature Source Oral Pulse Rate 103 H 93 H Pulse Rate [Left Apical] Respiratory Rate 25 H Respiratory Effort / Characteristics Spontaneous Labored Respiratory Depth Normal Respiratory Pattern Regular Blood Pressure 142/84 H 139/96 Blood Pressure [Right Arm] Blood Pressure Mean 103 111 Blood Pressure Mean [Right Arm] Blood Pressure Position [Right Arm] Pulse Oximetry 97 Oxygen Delivery Method Room Air Oxygen Flow Rate Sepsis Recent Fever Within 48 Hours Yes Sepsis New/Unexplained Change in Mental Status N/A Sepsis Action Taken by Nursing No Action Required 12/21/24 17:23 12/21/24 17:30 12/21/24 17:32 Temperature Temperature Source Pulse Rate 98 H 91 H Pulse Rate [Left Apical] Respiratory Rate 26 H 29 H Respiratory Effort / Characteristics Respiratory Depth Respiratory Pattern Blood Pressure 146/78 H Blood Pressure [Right Arm] Blood Pressure Mean 106 Blood Pressure Mean [Right Arm] Blood Pressure Position [Right Arm] Pulse Oximetry 95 96 Oxygen Delivery Method Room Air Room Air Oxygen Flow Rate Sepsis Recent Fever Within 48 Hours Sepsis New/Unexplained Change in Mental Status Sepsis Action Taken by Nursing 12/21/24 17:51 12/21/24 18:01 12/21/24 18:20 Temperature Temperature Source Pulse Rate 93 H 97 H Pulse Rate [Left Apical] Respiratory Rate 31 H 27 H Respiratory Effort / Characteristics Respiratory Depth Respiratory Pattern Blood Pressure 128/73 Blood Pressure [Right Arm] Blood Pressure Mean 92 Blood Pressure Mean [Right Arm] Blood Pressure Position [Right Arm] Pulse Oximetry 95 90 Oxygen Delivery Method Room Air Room Air Oxygen Flow Rate Sepsis Recent Fever Within 48 Hours Sepsis New/Unexplained Change in Mental Status Sepsis Action Taken by Nursing 12/21/24 18:30 12/21/24 18:35 12/21/24 18:47 Temperature Temperature Source Pulse Rate 91 H 108 H Pulse Rate [Left Apical] Respiratory Rate 28 H 28 H Respiratory Effort / Characteristics Respiratory Depth Respiratory Pattern Blood Pressure 138/87 Blood Pressure [Right Arm] Blood Pressure Mean 115 Blood Pressure Mean [Right Arm] Blood Pressure Position [Right Arm] Pulse Oximetry 93 94 Oxygen Delivery Method Room Air Room Air Oxygen Flow Rate Sepsis Recent Fever Within 48 Hours Sepsis New/Unexplained Change in Mental Status Sepsis Action Taken by Nursing 12/21/24 18:59 12/21/24 19:01 12/21/24 19:23 Temperature Temperature Source Pulse Rate 98 H 99 H Pulse Rate [Left Apical] Respiratory Rate 27 H 25 H Respiratory Effort / Characteristics Respiratory Depth Respiratory Pattern Blood Pressure 126/79 Blood Pressure [Right Arm] Blood Pressure Mean 85 Blood Pressure Mean [Right Arm] Blood Pressure Position [Right Arm] Pulse Oximetry Oxygen Delivery Method Oxygen Flow Rate Sepsis Recent Fever Within 48 Hours Sepsis New/Unexplained Change in Mental Status Sepsis Action Taken by Nursing 12/21/24 19:29 12/21/24 19:30 12/21/24 19:32 Temperature Temperature Source Pulse Rate 106 H 101 H Pulse Rate [Left Apical] Respiratory Rate 26 H 25 H Respiratory Effort / Characteristics Respiratory Depth Respiratory Pattern Blood Pressure 141/74 H Blood Pressure [Right Arm] Blood Pressure Mean 94 Blood Pressure Mean [Right Arm] Blood Pressure Position [Right Arm] Pulse Oximetry Oxygen Delivery Method Oxygen Flow Rate Sepsis Recent Fever Within 48 Hours Sepsis New/Unexplained Change in Mental Status Sepsis Action Taken by Nursing 12/21/24 19:42 12/21/24 19:59 12/21/24 20:00 Temperature Temperature Source Pulse Rate 99 H Pulse Rate [Left Apical] 102 H Respiratory Rate 26 H 24 Respiratory Effort / Characteristics Spontaneous Labored Respiratory Depth Normal Respiratory Pattern Regular Blood Pressure 131/74 Blood Pressure [Right Arm] 124/71 Blood Pressure Mean 91 Blood Pressure Mean [Right Arm] 88 Blood Pressure Position [Right Arm] Semi-fowlers Pulse Oximetry 94 93 Oxygen Delivery Method Room Air Room Air Oxygen Flow Rate Sepsis Recent Fever Within 48 Hours Sepsis New/Unexplained Change in Mental Status Sepsis Action Taken by Nursing 12/21/24 20:11 12/21/24 20:30 12/21/24 20:35 Temperature Temperature Source Pulse Rate 102 H 98 H Pulse Rate [Left Apical] Respiratory Rate 24 27 H Respiratory Effort / Characteristics Respiratory Depth Respiratory Pattern Blood Pressure 127/72 Blood Pressure [Right Arm] Blood Pressure Mean 93 Blood Pressure Mean [Right Arm] Blood Pressure Position [Right Arm] Pulse Oximetry 94 93 Oxygen Delivery Method Room Air Room Air Oxygen Flow Rate Sepsis Recent Fever Within 48 Hours Sepsis New/Unexplained Change in Mental Status Sepsis Action Taken by Nursing 12/21/24 20:56 12/21/24 21:00 12/21/24 21:02 Temperature Temperature Source Pulse Rate 97 H 95 H Pulse Rate [Left Apical] Respiratory Rate 24 26 H Respiratory Effort / Characteristics Respiratory Depth Respiratory Pattern Blood Pressure 129/74 Blood Pressure [Right Arm] Blood Pressure Mean 88 Blood Pressure Mean [Right Arm] Blood Pressure Position [Right Arm] Pulse Oximetry 94 94 Oxygen Delivery Method Room Air Room Air Oxygen Flow Rate Sepsis Recent Fever Within 48 Hours Sepsis New/Unexplained Change in Mental Status Sepsis Action Taken by Nursing 12/21/24 21:08 12/21/24 21:17 12/21/24 21:30 Temperature Temperature Source Pulse Rate 97 H 109 H Pulse Rate [Left Apical] Respiratory Rate 20 Respiratory Effort / Characteristics Respiratory Depth Respiratory Pattern Blood Pressure 126/75 Blood Pressure [Right Arm] Blood Pressure Mean 88 Blood Pressure Mean [Right Arm] Blood Pressure Position [Right Arm] Pulse Oximetry 100 Oxygen Delivery Method Nebulizer Oxygen Flow Rate 7 Sepsis Recent Fever Within 48 Hours Sepsis New/Unexplained Change in Mental Status Sepsis Action Taken by Nursing 12/21/24 21:32 12/21/24 21:50 12/21/24 22:00 Temperature Temperature Source Pulse Rate 100 H 101 H Pulse Rate [Left Apical] Respiratory Rate 22 23 Respiratory Effort / Characteristics Respiratory Depth Respiratory Pattern Blood Pressure 120/73 Blood Pressure [Right Arm] Blood Pressure Mean 96 Blood Pressure Mean [Right Arm] Blood Pressure Position [Right Arm] Pulse Oximetry 94 93 Oxygen Delivery Method Room Air Room Air Oxygen Flow Rate Sepsis Recent Fever Within 48 Hours Sepsis New/Unexplained Change in Mental Status Sepsis Action Taken by Nursing 12/21/24 22:08 12/21/24 22:50 Temperature Temperature Source Pulse Rate 99 H 99 H Pulse Rate [Left Apical] Respiratory Rate 18 23 Respiratory Effort / Characteristics Respiratory Depth Respiratory Pattern Blood Pressure Blood Pressure [Right Arm] Blood Pressure Mean Blood Pressure Mean [Right Arm] Blood Pressure Position [Right Arm] Pulse Oximetry 94 93 Oxygen Delivery Method Room Air Room Air Oxygen Flow Rate Sepsis Recent Fever Within 48 Hours Sepsis New/Unexplained Change in Mental Status Sepsis Action Taken by Nursing Laboratory Data 12/21/24 17:22 12/21/24 17:22 Lab Results 12/21/24 12/21/24 12/21/24 Range/Units 17:22 17:47 18:42 WBC 15.51 H (4.8-10.8) K/ul RBC 3.98 L (4.70-6.10) M/uL Hgb 10.8 L (14.0-18.0) g/dl Hct 34.9 L (42.0-52.0) % MCV 87.7 (80.0-100.0) fL MCH 27.1 (25.0-34.0) pg MCHC 30.9 L (32.0-36.0) g/dL RDW Std Deviation 56.0 H (36.4-46.3) fL RDW Coeff of Yanira 17.6 H (11.5-14.5) % Plt Count 164 (130-400) K/uL MPV 11.8 (9.4-12.4) fL Immature Gran % (Auto) 1.3 % Neut % (Auto) 85.5 % Lymph % (Auto) 5.6 % [place] % (Auto) 7.0 % Eos % (Auto) 0.3 % Baso % (Auto) 0.3 % Neut # (Auto) 13.27 H (1.40-6.50) K/uL Lymph # (Auto) 0.87 L (1.20-3.40) K/uL [place] # (Auto) 1.08 H (0.11-0.59) K/uL Eos # (Auto) 0.04 (0.00-0.50) K/uL Baso # (Auto) 0.05 (0.00-0.20) K/uL Immature Gran # (Auto) 0.20 (0.01-0.20) K/uL ESR 74 H (0-20) mm/hr PT 18.7 H (9.0-12.0) Seconds INR 1.8 H (0.9-1.1) APTT 36 H (21-31) Seconds PTT Ratio 1.3 Sodium 135 L (136-145) mmol/L Potassium 4.3 (3.5-5.1) mmol/L Chloride 98 (98-107) mmol/L Carbon Dioxide 27 (21-32) mmol/L Anion Gap 10 (3-11) BUN 89 H (6-23) mg/dl Creatinine 3.92 H (0.6-1.4) mg/dl Est Cr Clr Drug Dosing 15.8 ml/min eGFR 14.50 BUN/Creatinine Ratio 22.7 H (10-20) Glucose 111 H (70-99(Fasting)) mg/dl Lactate 1.3 (0.4-2.0) mmol/L Calcium 10.2 (8.6-10.3) mg/dl Magnesium 2.0 (1.7-2.4) mg/dl Total Bilirubin 1.6 H (0.2-1.0) mg/dl AST 18 (13-39) U/L ALT 18 (7-52) U/L Alkaline Phosphatase 156 H (34-104) U/L C-Reactive Protein 10.86 H (0-0.5) mg/dl Total Protein 7.0 (6.0-8.3) gm/dl Albumin 4.2 (3.4-5.0) gm/dl Globulin 2.8 (2.5-4.0) gm/dl Albumin/Globulin Ratio 1.5 (0.9-2) Procalcitonin 0.20 (0-0.5) ng/ml Urine Color Yellow Urine Appearance Clear (Clear) Urine pH 5.0 (4.5-7.5) Ur Specific [place] 1.013 (1.000-1.030) Urine Protein 2+ H (Negative) Urine Glucose (UA) Negative (Negative) Urine Ketones Negative (Negative) Urine Blood Negative (Negative) Urine Nitrite Negative (Negative) Urine Bilirubin Negative (Negative) Urine Urobilinogen Negative (Negative) Ur Leukocyte Esterase Negative (Negative) Urine WBC (Auto) 0-5 (0-5) /hpf Urine RBC (Auto) 0-2 (0-2) /hpf U Hyaline Cast (Auto) 3-5 H (0-2) /lpf U Epithel Cells (Auto) 0-2 (0-2) /hpf Urine Bacteria (Auto) None Seen (None Seen) Adenovirus (PCR) (NotDetected) B. pertussis DNA (PCR) (NotDetected) B.parapertussis DNA PCR (NotDetected) C. pneumoniae DNA (PCR) (NotDetected) Coronavirus OC43 (PCR) (NotDetected) Coronavirus HKU1 (PCR) (NotDetected) Coronavirus 229E (PCR) (NotDetected) SARS-CoV-2 (PCR) (NotDetected) Coronavirus NL63 (PCR) (NotDetected) Human Metapneumovir PCR (NotDetected) Influenza Type A (PCR) (NotDetected) Influenza Type B (PCR) (NotDetected) M. pneumoniae (PCR) (NotDetected) Parainfluenza 1 (PCR) (NotDetected) Parainfluenza 2 (PCR) (NotDetected) Parainfluenza 3 (PCR) (NotDetected) Parainfluenza 4 (PCR) (NotDetected) RSV (PCR) (NotDetected) Entero/Rhino (PCR) (NotDetected) 12/21/24 Range/Units 21:48 WBC (4.8-10.8) K/ul RBC (4.70-6.10) M/uL Hgb (14.0-18.0) g/dl Hct (42.0-52.0) % MCV (80.0-100.0) fL MCH (25.0-34.0) pg MCHC (32.0-36.0) g/dL RDW Std Deviation (36.4-46.3) fL RDW Coeff of Yanira (11.5-14.5) % Plt Count (130-400) K/uL MPV (9.4-12.4) fL Immature Gran % (Auto) % Neut % (Auto) % Lymph % (Auto) % [place] % (Auto) % Eos % (Auto) % Baso % (Auto) % Neut # (Auto) (1.40-6.50) K/uL Lymph # (Auto) (1.20-3.40) K/uL [place] # (Auto) (0.11-0.59) K/uL Eos # (Auto) (0.00-0.50) K/uL Baso # (Auto) (0.00-0.20) K/uL Immature Gran # (Auto) (0.01-0.20) K/uL ESR (0-20) mm/hr PT (9.0-12.0) Seconds INR (0.9-1.1) APTT (21-31) Seconds PTT Ratio Sodium (136-145) mmol/L Potassium (3.5-5.1) mmol/L Chloride (98-107) mmol/L Carbon Dioxide (21-32) mmol/L Anion Gap (3-11) BUN (6-23) mg/dl Creatinine (0.6-1.4) mg/dl Est Cr Clr Drug Dosing ml/min eGFR BUN/Creatinine Ratio (10-20) Glucose (70-99(Fasting)) mg/dl Lactate (0.4-2.0) mmol/L Calcium (8.6-10.3) mg/dl Magnesium (1.7-2.4) mg/dl Total Bilirubin (0.2-1.0) mg/dl AST (13-39) U/L ALT (7-52) U/L Alkaline Phosphatase (34-104) U/L C-Reactive Protein (0-0.5) mg/dl Total Protein (6.0-8.3) gm/dl Albumin (3.4-5.0) gm/dl Globulin (2.5-4.0) gm/dl Albumin/Globulin Ratio (0.9-2) Procalcitonin (0-0.5) ng/ml Urine Color Urine Appearance (Clear) Urine pH (4.5-7.5) Ur Specific [place] (1.000-1.030) Urine Protein (Negative) Urine Glucose (UA) (Negative) Urine Ketones (Negative) Urine Blood (Negative) Urine Nitrite (Negative) Urine Bilirubin (Negative) Urine Urobilinogen (Negative) Ur Leukocyte Esterase (Negative) Urine WBC (Auto) (0-5) /hpf Urine RBC (Auto) (0-2) /hpf U Hyaline Cast (Auto) (0-2) /lpf U Epithel Cells (Auto) (0-2) /hpf Urine Bacteria (Auto) (None Seen) Adenovirus (PCR) Not Detected (NotDetected) B. pertussis DNA (PCR) Not Detected (NotDetected) B.parapertussis DNA PCR Not Detected (NotDetected) C. pneumoniae DNA (PCR) Not Detected (NotDetected) Coronavirus OC43 (PCR) Not Detected (NotDetected) Coronavirus HKU1 (PCR) Not Detected (NotDetected) Coronavirus 229E (PCR) Not Detected (NotDetected) SARS-CoV-2 (PCR) Not Detected (NotDetected) Coronavirus NL63 (PCR) Not Detected (NotDetected) Human Metapneumovir PCR Not Detected (NotDetected) Influenza Type A (PCR) Not Detected (NotDetected) Influenza Type B (PCR) Not Detected (NotDetected) M. pneumoniae (PCR) Not Detected (NotDetected) Parainfluenza 1 (PCR) Not Detected (NotDetected) Parainfluenza 2 (PCR) Not Detected (NotDetected) Parainfluenza 3 (PCR) Not Detected (NotDetected) Parainfluenza 4 (PCR) Not Detected (NotDetected) RSV (PCR) Not Detected (NotDetected) Entero/Rhino (PCR) Not Detected (NotDetected) Administered Medications Discontinued Medications Acetaminophen (Acetaminophen 325 Mg Tab) 650 mg PO NOW STA Stop: 12/21/24 20:35 Last Admin: 12/21/24 21:00 Dose: 650 mg Documented By: [facility] Vancomycin HCl 2,000 mg/ (Sodium Chloride) 540 mls @ 200 mls/hr IV NOW ONE Stop: 12/21/24 22:02 Last Admin: 12/21/24 19:47 Dose: 200 mls/hr Documented By: BRIAN Cefepime HCl (Maxipime 2000mg) 2,000 mg in 20 mls @ 5 mls/min IV NOW STA; Protocol Stop: 12/21/24 20:11 Last Admin: 12/21/24 20:13 Dose: 5 mls/min Documented By: [facility] Ipratropium [place] (Ipratropium [place] Neb Soln 0.02% 0.5mg/2.5ml Vial) 0.5 mg INH NOW STA Stop: 12/21/24 20:35 Last Admin: 12/21/24 21:02 Dose: 0.5 mg Documented By: [facility] Levalbuterol HCl (Levalbuterol 1.25 Mg/3 Ml Neb) 1.25 mg NEB NOW STA Stop: 12/21/24 20:35 Last Admin: 12/21/24 21:02 Dose: 1.25 mg Documented By: [facility] Imaging Data Radiologist's Impression: Tibia/Fibula X-Ray 12/21/24 17:39 EXAMINATION: X-ray tibia fibula right 2 view CLINICAL HISTORY: Infection mid tibia PRIORS: None TECHNIQUE: A total knee arthroplasty is present with near anatomic alignment. Moderate diffuse edema present throughout the visualized lower leg in the [id number]. FINDINGS: No periprosthetic fracture or lucency. The tibial cortex is unremarkable with no periosteal reaction or erosion. No fracture or dislocation. Fibula is unremarkable. Vascular atherosclerotic disease noted. No subcutaneous gas or radiopaque foreign body. IMPRESSION: Subcutaneous edema/swelling with no plain film evidence of a underlying osseous abnormality. Electronically signed by Sheila Hanna 12-21-2024 6:06 PM Chest X-Ray 12/21/24 19:53 Exam(s): XR CXR 1 VIEW EXAM: XR Chest, 1 View CLINICAL HISTORY: Reason for exam: sob. renal failure. TECHNIQUE: Frontal view of the chest. COMPARISON: X-ray January 19, 2023 FINDINGS: Lungs: Interstitial and airspace opacity in the left upper lobe, atelectasis versus infiltrate. The right lung is clear. Pleural space: No pleural effusion. No pneumothorax. Heart: Unremarkable. No cardiomegaly. IMPRESSION: Interstitial and airspace opacity in the left upper lobe, atelectasis versus infiltrate. The right lung is clear. Electronically signed by: Bert Peña MD 12/21/24 20:53 PM Discharge Plan Visit Data Chief Complaint: Infection, Wound Stated Complaint: Fever, Green leg wound drainage, hypoxia ED Provider: Thang Krueger Discharge Problem: Cellulitis of lower extremity Forms Stand Alone Forms: [facility] Prescriptions Prescriptions: No Action multivitamin Tablet 1 tab PO QAM metoprolol succinate 100 mg tablet extended release 24 hr 100 mg PO AMHS levothyroxine 88 mcg tablet 88 mcg PO QAM ascorbic acid (vitamin C) [Vitamin C] 500 mg Tablet 500 mg PO QAM tamsulosin 0.4 mg capsule 0.4 mg PO QAM pantoprazole 40 mg tablet,delayed release (DR/EC) 40 mg PO QAM isosorbide dinitrate 20 mg tablet 20 mg PO BID gabapentin 100 mg capsule 100 mg PO BID glipizide 5 mg tablet 5 mg PO QAM warfarin 2.5 mg tablet 2.5 mg PO UD Rx Instructions: 5mg Sun//, 2.5 mg all other days torsemide 100 mg tablet 200 mg PO BID fluticasone furoate-vilanterol [Breo Ellipta] 100-25 mcg/dose blister with device 1 inh INHALATION DAILY albuterol sulfate 0.63 mg/3 mL solution for nebulization 0.63 mg inhalation Q6H PRN (Reason: Shortness Of Breath Or Wheezing) allopurinol 100 mg tablet 50 mg PO DAILY losartan 25 mg tablet 25 mg PO DAILY cholecalciferol (vitamin D3) 25 mcg (1,000 unit) tablet 25 mcg PO DAILY Saccharomyces boulardii 250 mg Capsule 250 mg PO DAILY Qty: 30 0RF Referrals Referrals: Suman Simpson MD [Primary Care Provider] - Discharge Problem: Cellulitis of lower extremity Qualifiers: Laterality: right Qualified Code(s): L03.115 - Cellulitis of right lower limb
--- NOTE | 2024-12-21 18:06 | XRay Report ---
EXAMINATION: X-ray tibia fibula right 2 view CLINICAL HISTORY: Infection mid tibia PRIORS: None TECHNIQUE: A total knee arthroplasty is present with near anatomic alignment. Moderate diffuse edema present throughout the visualized lower leg in the [id number]. FINDINGS: No periprosthetic fracture or lucency. The tibial cortex is unremarkable with no periosteal reaction or erosion. No fracture or dislocation. Fibula is unremarkable. Vascular atherosclerotic disease noted. No subcutaneous gas or radiopaque foreign body. IMPRESSION: Subcutaneous edema/swelling with no plain film evidence of a underlying osseous abnormality. Electronically signed by Sheila Hanna 12-21-2024 6:06 PM
[2024-12-21 18:11] LABS: Albumin Globulin Ratio 1.5 (0.9-2); Albumin Level 4.2 gm/dl (3.4-5.0); BUN Creatinine Ratio 22.7 (10-20); Bilirubin,Total 1.6 mg/dl (0.2-1.0); C Reactive Protein 10.86 mg/dl (0-0.5); Calcium 10.2 mg/dl (8.6-10.3); Creatinine Clr Calc Pharmacy 15.8 ml/min; Globulin 2.8 gm/dl (2.5-4.0); Potassium 4.3 mmol/L (3.5-5.1)
[2024-12-21 18:29] LABS: Appearance Urine Clear (Clear); Bacteria Urine Automated None Seen (None Seen); Bilirubin Urine Negative (Negative); Blood Urine Negative (Negative); Color Urine Yellow; Epithelial Cell Urine Auto 0-2 /hpf (0-2); Glucose Urine UA Negative (Negative); Ketones Urine Negative (Negative); Leukocyte Esterase Urine Negative (Negative); Nitrite Urine Negative (Negative); Protein Urine 2+ (Negative); RBC Urine Automated 0-2 /hpf (0-2); Specific Gravity Urine 1.013 (1.000-1.030); Urobilinogen Urine Negative (Negative); WBC Urine Automated 0-5 /hpf (0-5)
[2024-12-21] MEDS ORDERED: VANCOMYCIN CONSULT ACTIVE PRN (19:21)
[2024-12-21] MEDS: VANCOMYCIN HCL 2,000 MG in SODIUM CHLORIDE 0.9% 500 ML IV ONE (19:47)
[2024-12-21] MEDS: CEFEPIME 2000MG 2,000 MG/20 ML SYR IV STA (20:13)
[2024-12-21 20:37] LABS: INR 1.8 (0.9-1.1); Partial Thromboplastin Ratio 1.3; Partial Thromboplastin Time 36 Seconds (21-31); Prothrombin Time 18.7 Seconds (9.0-12.0)
--- NOTE | 2024-12-21 20:55 | XRay Report ---
Exam(s): XR CXR 1 VIEW EXAM: XR Chest, 1 View CLINICAL HISTORY: Reason for exam: sob. renal failure. TECHNIQUE: Frontal view of the chest. COMPARISON: X-ray January 19, 2023 FINDINGS: Lungs: Interstitial and airspace opacity in the left upper lobe, atelectasis versus infiltrate. The right lung is clear. Pleural space: No pleural effusion. No pneumothorax. Heart: Unremarkable. No cardiomegaly. IMPRESSION: Interstitial and airspace opacity in the left upper lobe, atelectasis versus infiltrate. The right lung is clear. Electronically signed by: Bert Peña MD 12/21/24 20:53 PM
[2024-12-21] MEDS: ACETAMINOPHEN 325 MG TAB PO STA ×2 (21:00→23:55)
[2024-12-21] MEDS: IPRATROPIUM BROMIDE NEB SOLN 0.02% 0.5MG/2.5ML VIAL INH STA (21:02)
[2024-12-21] MEDS: LEVALBUTEROL 1.25 MG/3 ML NEB NEB STA (21:02)
--- NOTE | 2024-12-21 21:41 | History & Physical Report ---
Date of Service December 21, 2024 Assessment & Plan (1) Fever: (2) Venous stasis ulcers of both lower extremities: (3) Type 2 diabetes mellitus: (4) Atrial fibrillation: (5) Hypertension: (6) COPD (chronic obstructive pulmonary disease): (7) Chronic heart failure with preserved ejection fraction (HFpEF): (8) CAD (coronary artery disease): Plan: HPI, ROS, PE completed by Yvonne Costa PA-C. Assessment and plan per Dr Portillo. See addendum. History of Present Illness Chief Complaint: Wound Primary Care Provider: Suman Simpson MD Patient is 84 year old male with PMH HTN, atrial fibrillation anticoagulated on warfarin, chronic HFpEF, DM II, previous history CKD V on HD and now current CKD IV no longer on HD, CAD, COPD, hypothyroidism, chronic thrombocytopenia, BENI, ABRAN on 2.5L oxygen at bedtime, gout, history amputation left second toe presented to ER with c/o wound to right lower leg. Per inpatient chart review history of hospitalization 11/03/2024-11/06/2024 for left fourth toe ulcer, diabetic foot infection initially treated with cefepime, daptomycin. MRI negati ve for osteomyelitis and podiatry was consulted and patient was transitioned to doxycycline and Augmentin. He states finished course and toe is looking better. Patient following with wound clinic for other multiple leg wounds. Patient states last night Tmax 100.6 F. He reports chronic rhinorrhea and chronic nonproductive cough. He feels has not had any increased rhinorrhea or cough. Patient reports has chronic shortness of breath on exertion which he feels has slowly been progressive. He states uses albuterol inhaler once daily. Unaware of any wheezing. Reports chronic BLE edema, denies any noted increased edema. Home health nurse in to see patient today and noted right lower leg wound with reported green/yellow area that sloughed off with cleansing and with fever was recommended come to ER. Denies N/V/D, GORDON, syncope, CP, palpitations, hemoptysis, sore throat, abdominal pain, other rashes, dysuria, hematuria. Allergies Allergy/AdvReac Type Severity Reaction Status Date / Time codeine Allergy Confusion Verified 12/14/24 14:09 metolazone AdvReac Severe SEVERE Verified 12/14/24 14:09 HYPONATREMIA morphine AdvReac Intermediate Hallucinati Verified 12/14/24 14:09 ons oxycodone AdvReac Intermediate Hallucinati Verified 12/14/24 14:09 ons Penicillins AdvReac Intermediate Hallucinati Verified 12/14/24 14:09 ons Home Medications Medication Instructions Recorded Confirmed Type ascorbic acid (vitamin C) 500 mg 500 mg PO QAM 07/23/21 12/21/24 History tablet (Vitamin C) gabapentin 100 mg capsule 100 mg PO BID 07/23/21 12/21/24 History glipizide 5 mg tablet 5 mg PO QAM 07/23/21 12/21/24 History isosorbide dinitrate 20 mg tablet 20 mg PO BID 07/23/21 12/21/24 History levothyroxine 88 mcg tablet 88 mcg PO QAM 07/23/21 12/21/24 History metoprolol succinate 100 mg 100 mg PO AMHS 07/23/21 12/21/24 History tablet,extended release 24 hr multivitamin 1 tab PO QAM 07/23/21 12/21/24 History pantoprazole 40 mg tablet,delayed 40 mg PO QAM 07/23/21 12/21/24 History release tamsulosin 0.4 mg capsule 0.4 mg PO QAM 07/23/21 12/21/24 History torsemide 100 mg tablet 200 mg PO BID 09/12/21 12/21/24 History fluticasone furoate 100 1 inh inhalation DAILY 09/02/23 12/21/24 History mcg-vilanterol 25 mcg/dose inhalation powder (Breo Ellipta) albuterol sulfate 0.63 mg/3 mL 0.63 mg inhalation Q6H PRN 11/03/24 12/21/24 History solution for nebulization Shortness Of Breath Or Wheezing allopurinol 100 mg tablet 50 mg PO DAILY 11/03/24 12/21/24 History cholecalciferol (vitamin D3) 25 25 mcg PO DAILY 11/03/24 12/21/24 History mcg (1,000 unit) tablet losartan 25 mg tablet 25 mg PO DAILY 11/03/24 12/21/24 History Saccharomyces boulardii 250 mg 250 mg PO DAILY #30 caps 11/06/24 12/21/24 Rx capsule warfarin 2.5 mg tablet 2.5 mg PO UD 12/06/24 12/21/24 History Past Med/Surg History Problem List (Updated 12/21/24 @ 23:36 by Thang Krueger, DO) Cellulitis of lower extremity (Acute) Fever Venous stasis ulcers of both lower extremities Diabetic ulcer of left foot Skin ulcer of left foot including toes with fat layer exposed Diabetic foot infection (Acute) Chronic anemia Toe ulcer Chronic heart failure with preserved ejection fraction (HFpEF) CAD (coronary artery disease) Cellulitis of fourth toe, left Rash Diabetic ulcer of toe of right foot (Acute) Acute lower gastrointestinal bleeding (Acute) Symptomatic anemia (Acute) Elevated INR (Acute) ESRD on hemodialysis Anemia Lower GI bleed Status post partial amputation of foot Personal history of diabetic foot ulcer Diabetic peripheral neuropathy associated with type 2 diabetes mellitus Hypothyroidism Hyperlipidemia COPD (chronic obstructive pulmonary disease) Anemia Chronic Per PCP records- presumed anemia due to CKD- baseline Hgb usually around 10.5 Chronic venous insufficiency (Chronic) Hypertension Type 2 diabetes mellitus NIDDM CKD (chronic kidney disease) Stage 5CKD, follows with Dr. Jaramillo>"he thought it was stage 4" "ESRD... not on dialysis" per PCP records Atrial fibrillation On warfarin Medical History Sepsis CKD (chronic kidney disease), stage IV on hemodialysis in the past History of acute prostatitis Rheumatoid arthritis Per PCP records ABRAN (obstructive sleep apnea) Per PCP records A-V fistula lt side; did not start dialysis yet Thrombocytopenia Chronic, baseline low 100s per chart review Deaf Left Chronic back pain GERD (gastroesophageal reflux disease) BPH (benign prostatic hyperplasia) Surgical History History of repair of rotator cuff Left History of carpal tunnel release R/L History of total knee replacement R/L Fusion of spine Neck Fusion of spine Lumbar History of colonoscopy History of cardiac cath 2010 > no stents >[facility] Nausea and vomiting after administration of anesthetic agent Family History Mother Cancer Other Family history non-contributory Social History Smoking Status: Never smoker Second Hand Exposure: Yes (hx at work); Do You Dip or Chew Tobacco: No; Hx Alcohol Use: No Hx Substance Use: No Preferred Language: Sami Communication Ability: Effective Photographic Laboratory Technician Required: No Beliefs That Will Affect Care: None marital status: Current Living Situation: Spouse Current Living Situation Comment: lives w/ and daughter, Juliana Other Information That Helps Us Care for You: No Feels Safe at Home: Yes Diet: low salt Assistive Devices: Cane, Oxygen - at Night, Walker and Wheelchair Review of Systems Review of Systems: All systems reviewed & are unremarkable except as noted in HPI & below Physical Exam Physical Exam: General: no distress, obese elderly male Head: normocephalic, atraumatic Eyes: conjunctiva non-injected, anicteric ENT: normal inspection external ears, nose, mucous membranes moist Neck: supple, trachea midline Lungs: no respiratory distress, no wheezing/rhonchi/rales CV: irregularly irregular, rate 104 Abd: normal BS, soft, non-tender Ext: no calf tenderness, BLE with edema and venous stasis skin discoloration changes, RLE: + wound to anterior lower leg with surrounding erythema, dried yellow drainage noted on bandage but no active drainage and no odor at this time Neuro: A&O x 3, no focal deficits noted, normal affect Skin: warm, dry, as above in extremities Results & Data Results & Data Vital Signs (Past 12 Hours) Vital Signs Temp Pulse Pulse Resp BP BP Pulse Ox 12/21/24 19:42 102 H 26 H 124/71 94 12/21/24 19:32 101 H 25 H 12/21/24 19:30 141/74 H 12/21/24 19:29 106 H 26 H 12/21/24 19:23 99 H 25 H 12/21/24 19:01 126/79 12/21/24 18:59 98 H 27 H 12/21/24 18:47 108 H 28 H 94 12/21/24 18:35 91 H 28 H 93 12/21/24 18:30 138/87 12/21/24 18:20 97 H 27 H 90 12/21/24 18:01 128/73 12/21/24 17:51 93 H 31 H 95 12/21/24 17:32 91 H 29 H 96 12/21/24 17:30 146/78 H 12/21/24 17:23 98 H 26 H 95 12/21/24 17:20 139/96 12/21/24 17:14 93 H 12/21/24 17:07 36.8 C 103 H 25 H 142/84 H 97 O2 Del Method 12/21/24 19:42 Room Air 12/21/24 19:32 12/21/24 19:30 12/21/24 19:29 12/21/24 19:23 12/21/24 19:01 12/21/24 18:59 12/21/24 18:47 Room Air 12/21/24 18:35 Room Air 12/21/24 18:30 12/21/24 18:20 Room Air 12/21/24 18:01 12/21/24 17:51 Room Air 12/21/24 17:32 Room Air 12/21/24 17:30 12/21/24 17:23 Room Air 12/21/24 17:20 12/21/24 17:14 12/21/24 17:07 Room Air Laboratory Results Short CBC 12/21/24 Range/Units 17:22 WBC 15.51 H (4.8-10.8) K/ul Hgb 10.8 L (14.0-18.0) g/dl Hct 34.9 L (42.0-52.0) % Plt Count 164 (130-400) K/uL BMP 12/21/24 17:22 Sodium 135 L Potassium 4.3 Chloride 98 Carbon Dioxide 27 BUN 89 H Creatinine 3.92 H Glucose 111 H Calcium 10.2 Liver Function 12/21/24 Range/Units 17:22 Total Bilirubin 1.6 H (0.2-1.0) mg/dl AST 18 (13-39) U/L ALT 18 (7-52) U/L Alkaline Phosphatase 156 H (34-104) U/L Albumin 4.2 (3.4-5.0) gm/dl Urine 12/21/24 Range/Units 17:47 Urine Color Yellow Urine Appearance Clear (Clear) Urine pH 5.0 (4.5-7.5) Ur Specific [place] 1.013 (1.000-1.030) Urine Protein 2+ H (Negative) Urine Glucose (UA) Negative (Negative) Diagnostic Findings Tibia/Fibula X-Ray 12/21/24 17:39 EXAMINATION: X-ray tibia fibula right 2 view CLINICAL HISTORY: Infection mid tibia PRIORS: None TECHNIQUE: A total knee arthroplasty is present with near anatomic alignment. Moderate diffuse edema present throughout the visualized lower leg in the [id number]. FINDINGS: No periprosthetic fracture or lucency. The tibial cortex is unremarkable with no periosteal reaction or erosion. No fracture or dislocation. Fibula is unremarkable. Vascular atherosclerotic disease noted. No subcutaneous gas or radiopaque foreign body. IMPRESSION: Subcutaneous edema/swelling with no plain film evidence of a underlying osseous abnormality. Electronically signed by Sheila Hanna 12-21-2024 6:06 PM Chest X-Ray 12/21/24 19:53 Exam(s): XR CXR 1 VIEW EXAM: XR Chest, 1 View CLINICAL HISTORY: Reason for exam: sob. renal failure. TECHNIQUE: Frontal view of the chest. COMPARISON: X-ray January 19, 2023 FINDINGS: Lungs: Interstitial and airspace opacity in the left upper lobe, atelectasis versus infiltrate. The right lung is clear. Pleural space: No pleural effusion. No pneumothorax. Heart: Unremarkable. No cardiomegaly. IMPRESSION: Interstitial and airspace opacity in the left upper lobe, atelectasis versus infiltrate. The right lung is clear. Electronically signed by: Bert Peña MD 12/21/24 20:53 PM Supervising Physician Co-Signing Physician Notes IM ATTENDING : Patient seen and examined. History obtained from patient and records. Concur with salient points upon review of preceding documentation by Ms. Yvonne Howard PA-C. I take responsibility for plan of care below. FINAL ASSESSMENT AND PLAN as follows : Sepsis Secondary to infected RLE wound History of venous stasis Failed outpatient treatment Rule out abscess Shortness of breath hx chronic COPD ABRAN status post surgery/nocturnal hypoxemia on home O2 at night Underlying pulmonary hypertension A-fib on Coumadin, INR slightly subtherapeutic Valvular heart disease (mild AR/TR) CRI, creatinine at baseline, past history of dialysis as per records DM2 on oral medications, reasonable control as of recent hemoglobin A1c of 7.07 September 2024 Hypothyroidism, euthyroid as of recent outpatient TSH GERD on PPI Rheumatoid arthritis Chronic anemia, hemoglobin at baseline Admit to medical telemetry CS, Doxycycline CT RLE Hold Coumadin until CT resulted Further management contingent on CT results Neb treatment as needed SOB/wheezing ISS BG goal 1 10-1 40, carb count coverage DVT prophylaxis. SCDs while Coumadin on hold if INR less than 2 DNR Patient daughter requesting updates providers. Francisco Juliana Valenzuelalesliederrick, contact #[phone] I spent a total of 30 minutes coordinating, documenting, and providing care for this patientexcludingtime spent by another provider/QHP. Text document was generated using [employer] voice recognition software. It may contain grammatical or spelling errors. Kindly contact undersigned for clarification of any documentation item in question.
[2024-12-21] MEDS ORDERED: oxyCODONE HCL IR 5 MG TAB (IMMEDIATE RELEASE) PO PRN (22:43)
[2024-12-21 22:51] LABS: Adenovirus PCR Not Detected (NotDetected); Bordetella parapertussis PCR Not Detected (NotDetected); Bordetella pertussis PCR Not Detected (NotDetected); Chlamydia pneumoniae PCR Not Detected (NotDetected); Coronavirus 229E PCR Not Detected (NotDetected); Coronavirus CoV-2 (COVID19)PCR Not Detected (NotDetected); Coronavirus HKU1 PCR Not Detected (NotDetected); Coronavirus NL63 PCR Not Detected (NotDetected); Coronavirus OC43PCR Not Detected (NotDetected); Human Metapneumovirus PCR Not Detected (NotDetected); Influenza A PCR Not Detected (NotDetected); Influenza B PCR Not Detected (NotDetected); Mycoplasma pneumoniae PCR Not Detected (NotDetected); Parainfluenza Virus 1 PCR Not Detected (NotDetected); Parainfluenza Virus 2 PCR Not Detected (NotDetected); Parainfluenza Virus 3 PCR Not Detected (NotDetected); Parainfluenza Virus 4 PCR Not Detected (NotDetected); Respiratory Syncytial VirusPCR Not Detected (NotDetected); Rhinovirus/Enterovirus PCR Not Detected (NotDetected)
[2024-12-21] MEDS: ISOSORBIDE DINITRATE 20 MG TAB PO SCH (23:55)
[2024-12-21] MEDS: METOPROLOL SUCC 50MG EXT REL TAB PO SCH (23:55)
--- OUTSIDE RECORDS SUMMARY | 2024-12-22 00:13 | External Medical Summary | Summary of Care ---
Author Name Unknown Organization [facility] Address [address] [place] [address] Phone [phone] Care Team Providers Care Curing Supervisor Name Role Phone Suman Simpson MD Primary Care Provider [phone]- [phone] Reason for Visit * Reason Comments NEW PATIENT Pt presents for L miah ricci pain Encounter Details Date Type Department Care Team (Late st Contact Info) Description 12/16/2024 1:30 PM EST Office Visit Orthopaedics [facility] [address] [place] [phone] Anirudh Lopez PA-C [address] [place] [address] Acute pain of left shoulder*; Closed 3-part fracture of proximal end of left humerus, initial encounter Allergies Active Allergy Reactions Criticality Noted Date Comments Metolazone 07/29/2021 Severe HYponatremia Morphine Sulfate Other (Please comment) 006 hallucinate Oxycodone Other (Please comment) 07/07/2006 Hallucinate Penicillins 07/21/2011 Hallucinate documented as of this encounter (statuses as of 12/16/2024) Medications VITAMIN C 500 MG PO TABS [...] A1c goal of less than 8.0% ([facility]) Use up to 4 times [...] Active Additional Information Patient not taking.Reported on 11/11/2024 Sennosides-Docusa te Sodium 8.6-50 MG Oral Tablet (Senokot-S)Indica tions:Constipatio n, unspecified constipation type Take 1 Tablet by mouth at bedtime as needed for Constipation. May increase to 2 as needed 30 Tablet 03/07/20 24 Active Additional Information Patient not taking.Reported on 11/11/2024 Tamsulosin HCl 0.4 MG Oral Capsule (Flomax)Indicatio ns:BPH with obstruction/lower urinary tract symptoms Take 1 Capsule by mouth in the morning. 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 85 g 1 06/21/20 24 Active Ondansetron 4 MG Oral Tablet Disintegrating (Zofran)Indicatio ns:Nausea Place 1 Tablet on tongue every 8 hours as needed for Nausea. dissolve on tongue. 20 Tablet 08/10/20 24 Active Additional Information Patient not taking.Reported on 11/11/2024 Benzonatate 100 MG Oral CapsuleIndication s:COPD, group B, by GOLD 2017 classification ([facility]) Take 1 Capsule by mouth 3 times a day as needed for Cough. 30 Capsule 1 08/23/20 24 Active Vitamin D3 25 MCG (1000 UT) Oral Tablet (Vitamin D3) Take 1 Tablet by mouth in the morning. 30 Tablet 5 08/24/20 24 Active Breo Ellipta 100-25 MCG/ACT Inhalation Aerosol Powder Breath ActivatedIndicati ons:COPD, group B, by GOLD 2017 classification ([facility]) Inhale 1 Puff by mouth [...] A1c goal of less than 8.0% ([facility]) Take 1 Tablet by mouth in the morning. 90 Tablet 1 09/05/20 24 Active Gabapentin 100 MG Oral Capsule (Neurontin) TAKE ONE CAPSULE BY MOUTH TWICE A DAY 180 Capsule 1 09/14/20 Active oxygen IN GAS Use 2.5 L/min(Oxygen) as directed at bedtime. Active Full Kit Nebulizer Set Use with Nebulizer Medication EVERY SIX HOURS WHILE AWAKE as directed. Dx Code: J44.9 1 Each 3 10/24/20 Active Amoxicillin-Pot Clavulanate 875-125 MG Oral Tablet (Augmentin) Take 1 Tablet by mouth in the morning and 1 Tablet before bedtime. 11/06/20 Active Doxycycline Hyclate 100 MG Oral Capsule 2 times a day. 11/06/20 Active Hospital, Clinic, or Other Facility Administered Medication Ordered Dose Route Frequency Start Date End Date Status Albuterol Sulfate (Proventil) (5 MG/ML) 0.5% *conc* inhalation solution 2.5 mgIndications:COPD, group B, by GOLD 2017 classification ([facility]),Dyspnea and respiratory abnormalities 2.5 mg NEBULIZER PRN 08/29/2024 08/29/2025 Active Albuterol Sulfate (Proventil) (2.5 MG/3ML) 0.083% inhalation solution 2.5 mgIndications:COPD, group B, by GOLD 2017 classification ([facility]),Dyspnea and respiratory abnormalities 2.5 mg NEBULIZER PRN 08/29/2024 08/29/2025 Active documented as of this encounter (statuses as of 12/16/2024) Active Problems Problem Noted Date Diagnosed Date [...] Plan (01/09/2022 2:18 PM EST): [facility] Triage Call: Reviewed case w/ Dr [...] as of this encounter (statuses as of 12/16/2024) Resolved Problems Problem Noted Date Diagnosed Date Resolved Date Hypertensive chronic kidney disease with stage 5 chronic kidney disease or end stage renal disease 01/27/2023 08/24/2023 Atherosclerosis of [place] 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 09/13/2021 [...] Daytime somnolence 12/19/2013 7 High triglycerides 09/29/2011 Overview (02/03/2023): DUPLICATE Type 2 diabetes mellitus [...] as of this encounter (statuses as of 12/16/2024) Immunizations Name Administration Dates Next Due COVID-19 mRNA, LNP-s, No Pre serve, 2-Dose Series ([email or web address]) 10/20/2021,02/28/2021,02/07/2021 COVID-19, MRNA-LNP, PF, 30 M CG/0.3 mL, 12 YRS AND ABOVE, IM ([employer]) 10/13/2023 Covid-19, Mrna, Lnp-s, Pf, B ivalent, [...] Date Recorded PHQ Adult Total Score 0 11/08/2024 Hunger Vital Sign Answer Date Recorded Within the past 12 months, y ou worried that your food would run out before you got the money to buy more. Never true 11/08/20 24 Within the past 12 months, t he food you bought just didn't last and you didn't have money to get more. Never true 11/08/2024 Childcare Answer Date Recorded Do you feel overwhelmed with taking care of a child, family member or friend? No 11/08/2024 Does your family need help f inding childcare? (Household - for ages 0-17 years) Not on file 11/08/2024 Clothing Answer Date Recorded Have you been unable to get clothing when it was really needed? No 11/08/2024 Is your family able to get c lothes or diapers when needed? (Household - for ages 0-17 years) Not on file 11/08/2024 Personal Safety Answer Date Recorded Do you feel unsafe or have concerns for your saf ety? No 11/08/2024 Do you have concerns for you r family's safety? (Household - for ages 0-17 years) Not on file 11/08/2024 Utilities Answer Date Recorded Do you have trouble paying y our heating, water, or electric bill? Yes 11/08/2024 Is your family able to pay t he heat, water, or electric bill? (Household - for ages 0-17 years) Not on file 11/08/2024 Does your family have access to good internet? (Household - for ages 0-17 years) Not on file 11/08/2024 Employment Status Answer Date Recorded Are you unemployed or without regular income? No 11/08/2024 Does the household have a re gular source of income? (Household - for ages 0-17 years) Not on file 11/08/2024 Social Connections Answer Date Recorded How often do you feel lonely or isolated from th ose around you? Never 11/08/2024 Financial Resource Strain Answer Date R ecorded Do you have any trouble payi ng for your medications, or do you think you might in the future? No 11/08/2024 Does your family have troubl e paying for medicine? (Household - for ages 0-17 years) Not on file 11/08/2024 Transportation Needs Answer Date Record ed Do you have trouble getting a ride to medical visits or work? (Adult - for ages 18 years and over) Not on file 11/08/2024 Does your family have a hard time getting a ride to doctors visits? (Household - for ages 0-17 years) Not on file 11/08/2024 Has lack of transportation k ept you from medical appointments, meetings, work, or from getting things needed for daily living? Check all that apply. No 11/08/2024 Do you (or your family) have trouble finding or paying for a ride (transportation)? (Household - for ages 0-17 years) Not on file 11/08/2024 Housing Stability Answer Date Recorded Do you currently live in a s helter or have no steady place to sleep at night? No 11/08/2024 Do you think you are at risk of becoming homeless? (Adult - for ages 18 years and over) Not on file 11/08/2024 Does your family worry about paying for your home or becoming homeless? (Household - for ages 0-17 years) Not on file 1 01/09/2024 Are you homeless or worried that you might be in the future? No 11/08/2024 Are you (or your family) lynsey eless or worried that you might be in the future? (Household - for ages 0-17 years) Not on file Food Insecurity Answer Date Recorded Do you need food for this week? No 11/08/2024 Are you able to get enough f ood for your family? (Household - for ages 0-17 years) Not on file 11/08/2024 Does your family need food t his week? (Household - for ages 0-17 years) Not on file 11/08/2024 Do you always have enough fo od for your family? (Household - for ages 0-17 years) Not on file 11/08/2024 Sex and Gender Information Value Date Recorded [...] documented in this encounter Progress Notes * Anirudh Lopez PA-C - 12/16/2024 1:47 PM EST 2 week follow-up regarding a left shoulder injury that resulted in a proximal humerus fracture. States symptoms are tolerable. Has been utilizing a sling with a waist pain since his injury and initial follow up with myself. Denies any new injury or fall. Denies any numbness or tingling. We will need repeat radiographs today. Here with his complete review of systems negative General: alert and oriented x3 male, no acute distress, appears currently stated age, pleasant, well nourished Skin: Left upper extremity including shoulder, torso and upper arm does not reveal any erythema, ecchymosis, abrasion, laceration, skin breakdown otherwise. There is some swelling within the dorsum of the hand and fingers as the patient states he could benefit from elevating the hand more frequently. Certainly not advanced there is no pitting edema. As stated below distal pulses +2 capillary refill under 2 seconds compartments are soft throughout the upper arm and forearm. Neurovascular: Left upper extremity reveals distal pulses +2, capillary refill is under 2 seconds, good sensation light touch, reveals active motion of the fingers and thumb, axillary median ulnar radial nerve assess fully intact Musculoskeletal: Exam of the left shoulder limited in order to preserve fracture alignment. Does reveal active motion of the elbow, wrist, hand fingers and thumb. X-rays left shoulder reveal humeral head located in glenoid fossa. There is a minimally displaced three-part proximal humerus fracture identified on all three views that has not changed in alignment from his initial radiographs. Osteopenic changes identified. There is advancing degeneration of the AC joint as well as moderate changes in the glenohumeral joint. Official report to follow accordingly Personal interpretation and documentation regarding today's plain film radiographs performed by myself. Impression: 2 weeks status post left proximal humerus fracture, stable Plan: Today 's findings were discussed with the patient. They were educated regarding their diagnosis. Multiple treatment options discussed and agreed upon, including 4 additional weeks of immobilizing with sling and waist band. Can remove the sling for gentle range of motion of the elbow to prevent stiffness as well as the wrist, hand, fingers and thumb. Avoid any attempted repetitive activity or lifting with the left upper extremity. Can use topical agents and oral medication as tolerated with food discontinue with any GI upset. The patient will follow up in 4 weeks for clinical reassessment repeat radiographs of the left shoulder four views at that time. The patient has no other questions or concerns. Pleased with today 's care. Call sooner if needed. This chart was completed in part utilizing Get[employer] Speech Voice Recognition Software. Grammatical errors, random word insertions, prounoun errors, and incomplete sentences are an occasional consequence of this system due to software limitations, ambient noise, and hardware issues. Any formal questions or concerns about the content, text, or information contained within the body of this dictation should be directly addressed to the provider for clarification. documented in this encounter Nursing Notes * Renay Andrade CMA - 12/16/2024 1:44 PM EST Pt presents for L shoulder fx Pt had a fall about 2-3 weeks ago and injured his L shoulder Pt has xrays on file and reveals fracture at the base of the acromion, Humeral neck fracture Pt said they were given OTC meds for the issue and it made his stomach upset - Renay Bullard CMA documented in this encounter Plan of Treatment Upcoming Encounters Date Type Department Care Team (Late st Contact Info) Description 12/22/2024 3:00 PM EST Office Visit Cardiology, [facility] [address] [facility] [place] [address] Rosetta Velasco CRNP [address] [facility] [place] [address] 01/12/2025 2:30 PM EST Office Visit Orthopaedics [facility] [address] [facility] [place] [phone] Anirudh Lopez PA-C [address] [facility] [place] [address] 01/17/2025 3:00 PM EST [facility]tico[facility], [facility] [address] [facility] [phone] [facility] [address] [place] [address] 01/27/2025 2:30 PM EST Office Visit Interventional Pain Center [facility] [address] [place] [phone] Isis Mcrae PAPennie [address] [place] [address] 03/13/2025 3:00 PM EDT Office Visit Nephrology, [facility] [address] [place] [address] David Jaramillo MD [address] [place] [address] 04/04/2025 2:40 PM EDT [facility] [address] [place] [phone] Suman Simpson MD [address] [facility] [place] [address] 04/26/2025 3:00 PM EDT Office Visit Pulmonary Medicine, [facility] [address] [place] [address] Bradley Yepez MD [address] [place] [phone] Pending Results Name Type Priority Associated Diagnoses Date /Time XR SHOULDER, 2 OR MORE VIEWS Medical Imaging Routine Acute pain of left shoulder 12/16/2024 2:44 PM EST Health Maintenance Due Date Last Done Comments Adult Wellness Visit 2007 COVID-19 Vaccine ( season) 2024 10/13/2023, 09/12/2022, 10/20/2021, Additional history exists HbA1c 03/28/2025 09/27/2024, 04/0 06/2024, 01/13/2024, Additional history exists Diabetic Eye Exam 04/01/2025 04/01/2024, , 03/30/2023, Additional history exists Diabetic Foot Exam 06/21/2025 06/21/2024, 0 04/16/2023, 06/14/2020, Additional history exists TSH 06/21/2025 06/21/2024, 06/01/2023, 12/27/2021, Additional history exists Zoster Vaccines (2 of 3) 06/21/2025 01/28/2013 Pos tponed from 03/25/2013 (Patient Declined After Education) Depression Screening 11/08/2025 11/08/2024, 06/21/20 24 O2 ASSESSMENT COMPLETED IN PAST YEAR FOR COPD 11/11/2025 11/11/2024 DTap/Tdap Vaccines (4 - Td or Tdap) 01/13/2033 01/13/2023, 01/13/2023, 01/04/2013, Additional history exists Pneumococcal Vaccine: 50+ Years Completed 08/02/2015, 08/31/2012, 10/25/2002 Alpha-1 Antitrypsin [...] Esophageal reflux Atrial fibrillation, unspecified type (HCC) Acute pain of left shoulder- Primary Closed 3-part fracture of proximal end of left humerus, initial encounter documented in this encounter Advance Directives * [...] File Name Relationship Healthcare Agent [facility] [employer] Latia Trejo Spouse Health Care Agent Care Teams Curing Supervisor Relationship Specialty Start Date End Date Suman Simpson MD PCP - General 01/26/03 documented as of this encounter
--- OUTSIDE RECORDS SUMMARY | 2024-12-22 00:13 | External Medical Summary | Summary of Care ---
Author Name Unknown Organization [facility] Address [address] [place] [address] Phone [phone] Care Team Providers Care Bale Breaker Operator Name Role Phone Suman Simpson MD Primary Care Provider [phone]- [phone] Reason for Visit * Reason Onset Date Comments Medication Question 12/15/2024 Encounter Details Date Type Department Care Team (Late st Contact Info) Description 12/15/2024 Telephone Pharmacy, [place] [address] [place] [address] [facility] [address] [place] [address] Medication Question Allergies Active Allergy Reactions Criticality Noted Date Comments Metolazone 07/29/2021 Severe HYponatremia Morphine Sulfate Other (Please comment) 006 hallucinate Oxycodone Other (Please comment) 07/07/2006 Hallucinate Penicillins 07/21/2011 Hallucinate documented as of this encounter (statuses as of 12/15/2024) Medications VITAMIN C 500 MG PO TABS [...] 1 or two tablets 30 Tablet 03/07/20 Active Isosorbide Dinitrate 20 MG Oral Tablet [...] times a day E11.9 100 Strip 03/07/20 Active Pantoprazole Sodium 40 MG Oral Tablet [...] morning and 1 Tablet before bedtime. 11/06/20 24 Active Doxycycline Hyclate 100 MG Oral Capsule 2 times a day. 11/06/20 24 Active Hospital, Clinic, or Other Facility [...] as of this encounter (statuses as of 12/15/2024) Active Problems Problem Noted Date Diagnosed Date [...] Assessment & Plan (01/09/2022 2:18 PM EST): [facility] Triage Call: Reviewed case w/ [...] as of this encounter (statuses as of 12/15/2024) Resolved Problems Problem Noted Date Diagnosed Date Resolved Date Hypertensive chronic kidney disease with stage 5 chronic kidney disease or end stage renal disease 01/27/2023 08/24/2023 Atherosclerosis of [place] 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 09/13/2021 [...] as of this encounter (statuses as of 12/15/2024) Immunizations Name Administration Dates Next Due COVID-19 mRNA, LNP-s, No Pre serve, 2-Dose Series ([employer]) 10/20/2021,02/28/2021,02/07/2021 COVID-19, MRNA-LNP, PF, 30 M CG/0.3 mL, 12 YRS AND ABOVE, IM ([employer]) 10/13/2023 Covid-19, Mrna, Lnp-s, Pf, B ivalent, [...] encounter Miscellaneous Notes * Telephone Encounter - Helen Boyer [facility] - 12/15/2024 2:54 PM EST Spoke to Juliana. Patient was advised by nephro that he can remain on the boost. Continue weekly doseof 5 mg Sun and 2.5 mg all other days. Recheck INR 12/26/24 or sooner. Helen Boyer, PharmD, BCACP Clinical Pharmacist Medication Therapy Disease Management 12/15/2024, 2:59 PM * Telephone Encounter - Juliana Peña [facility] - 12/15/2024 1:14 PM EST Caller's name: Latia Preferred call back number(OFFICE NUMBER FOR ): [phone] Reason for call: Patient spouse calling in and states before patient can start drinking boost he needs to be seen by his kidney dr regarding the amount of protein he can have. Patient has not starteddrinking Boost so Latia is requesting a call back to discuss the extra pill the was added by [facility]. Thank you, Juliana Peña CPhT [employer]spring [employer] [facility] 12/15/2024,1:14 PM documented in this encounter Plan of Treatment Upcoming Encounters Date Type Department Care Team (Late st Contact Info) Description 12/16/2024 1:30 PM EST Office Visit Orthopaedics [facility] [address] [facility] [phone] Anirudh Lopez PA-C [address] [place] [address] 12/22/2024 3:00 PM EST Office Visit Cardiology, [facility] [address] [facility] [place] [address] Rosetta Velasco, VACUUM FORMING MACHINE OPERATOR [address] [facility] [address] 12/26/2024 2:50 PM EST [facility]ticoagulation Pharm[facility], [facility] [phone] [address] [address] 01/27/2025 2:30 PM EST Office Visit Interventional Pain Center [facility] [address] [place] [phone] Isis Mcrae PA-C [address] [place] [address] 03/13/2025 3:00 PM EDT Office Visit Nephrology, [facility] [address] [place] [address] David Jaramillo MD [address] [place] [address] 04/04/2025 2:40 PM EDT Office Visit [facility], [place] [facility] [address] [facility] [place] [phone] Suman Simpson MD [address] [facility] [place] [address] 04/26/2025 3:00 PM EDT Office Visit Pulmonary Medicine, [facility] [address] [facility] [place] [address] Bradley Yepez MD [address] [place] [address] Health Maintenance Due Date Last Done Comments [...] Esophageal reflux Atrial fibrillation, unspecified type (HCC) Atrial fibrillation, unspecified type (HCC)- Primary documented in this encounter Advance Directives * [...] Trejo Spouse Health Care Agent Care Teams Bale Breaker Operator Relationship Specialty Start Date End Date Suman Simpson MD PCP - General 01/26/03 documented as of this encounter
--- OUTSIDE RECORDS SUMMARY | 2024-12-22 00:13 | External Medical Summary ---
Author Name Unknown Address Unknown Organization [id number][facility] [address] [place] [address] Laboratory Report Ordering Provider Test Date Status LAURA BRANNON 12/16/2024 15:00:22 Final Therapeutic ranges for non-o perative patients:
Prophylaxsis/treatment of DVT: (Range:2.0-3.0)
Treatment of pulmonary embolism:(Range:2.0-3.0)
Prevention of systemic embolism from:
-tissue heart valves
-acute myocardial infarction
-valvular heart disease
-atrial fibrillation
(Range: 2.0-3.0)
Mechanical prosthetic valves: (Range: 2.5-3.5) Observation Date Value Abnormality Reference (Units ) Status INR in Capillary blood by Coagulation assay 12/16/2024 15:00:22 2.2 (INR) Final Performing Location [facility] [address] [place] [address]
--- OUTSIDE RECORDS SUMMARY | 2024-12-22 00:13 | External Medical Summary | Summary of Care ---
Author Name Unknown Organization [facility] Address [address] [place] [address] Phone [phone] Care Team Providers Care Keypuncher Name Role Phone Suman Simpson MD Primary Care Provider +1- [phone] Reason for Visit * Reason Comments Dosage Adjustment In Person (Anticoag Cl inic) Encounter Details Date Type Department Care Team (Latest Contact Info) Description 12/16/2024 3:00 PM EST Anticoagulation Pharmacy[facility] [address] [place] [address] [facility] [address] [place] [address] Anticoagulation management encounter*; Atrial fibrillation, unspecified type [...] chronic kidney disease not on chronic dialysis ([facility]) Take 2 tablets in AM [...] ons:COPD, group B, by GOLD 2017 classification ([facility] [...] Assessment & Plan (01/09/2022 2:18 PM EST): [facility] Triage Call: Reviewed case w/ [...] stage renal disease 01/27/2023 08/24/2023 Atherosclerosis of [place] 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 09/13/2021 [...] mRNA, LNP-s, No Pre serve, 2-Dose Series ([employer]) 10/20/2021,02/28/2021,02/07/2021 COVID-19, MRNA-LNP, PF, 30 M CG/0.3 mL, 12 YRS AND ABOVE, IM ([facility]) 10/13/2023 Covid-19, Mrna, Lnp-s, Pf, B ivalent, [...] documented in this encounter Progress Notes * Jeaneth Carrasco RPh - 12/16/2024 2:57 PM EST Medication Therapy Disease Management - Anticoagulation Patient: Tre Trejo | : 1940 Subjective Patient-Reported Symptoms: Patient Findings Negatives: Signs/symptoms of thrombosis, Signs/symptoms of bleeding, Change in health, Change in alcohol use, Change in activity, Upcoming invasive procedure, Missed doses, Extra doses, Change in medications, Change in diet/appetite, Bruising Objective Current Warfarin Dose As of 12/16/2024 Warfarin maintenance plan: 5 mg (2.5 mg x 2) every Sun, Tue, Margi; 2.5 mg (2.5 mg x 1) all other days INR Result As of 12/16/2024 INR goal: 2.0-3.0 INR used for dosin.2 (12/16/2024) Assessment & Plan Warfarin Plan As of 12/16/2024 Full warfarin instructions: 5 mg every Sun, Tue, Margi; 2.5 mg all other days No change documented: Jeaneth Carrasco RPh Next INR check: 01/17/2025 Repeat PT/INR in 4 week(s) Weekly dose: not changed Additional Dosing Information: Description Takes in AM Pt prefers OFS vs GML (venipuncture) Drinking 1 boost daily (noted 12/02/24) I spent a total of 10-19 minutes (exact time 10 mins) on the date of service in preparation, delivery, and documentation of the care provided to Tre Trejo excluding any time spent in the performance of separately billed services or time spent by another provider/QHP. Jeaneth Carrasco [facility] Clinical Pharmacist 12/16/2024, 3:32 PM documented in this encounter Plan of Treatment Upcoming Encounters Date Type Department Care Team (Late st Contact Info) Description 12/22/2024 3:00 PM EST Office Visit Cardiology, [facility] [address] [facility] [place] [address] Rosetta Velasco CRNP [address] [facility] [place] [address] 01/12/2025 2:30 PM EST Office Visit Orthopaedics [facility] [address] [place] [phone] Anirudh Lopez PA-C [address] [place] [address] 01/17/2025 3:00 PM EST [facility] [phone] Alex [facility] [address] [place], [place] [address] [address] 01/27/2025 2:30 PM EST Office Visit Interventional Pain Center [facility] [address] [place] [phone] Isis Mcrae [facility]-C [facility] [place] [address] 03/13/2025 3:00 PM EDT Office Visit Nephrology, [facility] [address] [place] [address] David Jaramillo MD [address] [facility] [place], [place] [address] 04/04/2025 2:40 PM EDT Office Visit [facility], [facility] [address] [facility] [address] Suman Simpson MD 226 [place] [address] 04/26/2025 3:00 PM EDT Office Visit Pulmonary Medicine, [facility] [address] [facility] [place] [address] Bradley Yepez MD [address] [facility] [place] [address] Health Maintenance Due Date Last Done Comments [...] Comments INR FINGERSTICK, POINT OF CARE STAT 12/16/2024 3:00 PM EST Atrial fibrillation, unspecified type (HCC) Anticoagulation management encounter documented in this encounter Results * INR FINGERSTICK, POINT OF CARE (12/16/2024 3:00 PM EST) Fingerstick INR 2.2 INR 3:21 PM EST [facility]10 Blood 12/16/2024 3:00 PM EST 12/16/2024 3:21 PM EST Narrative [facility] 57-10 - 12/16/2024 3:21 PM EST Therapeutic ranges for non-operative patients: Prophylaxsis/treatment of DVT: (Range:2.0-3.0) Treatment of pulmonary embolism:(Range:2.0-3.0) Prevention of systemic embolism from: -tissue heart valves -acute myocardial infarction -valvular heart disease -atrial fibrillation (Range: 2.0-3.0) Mechanical prosthetic valves: (Range: 2.5-3.5) [facility] POINT OF CARE TEST DOCKED DEVICE UNSOLICITED RESULTS Final Result [facility] [place] 57-10 [address] [place] [address] documented in this encounter Visit Diagnoses Diagnosis [...] Name Relationship Healthcare Agent [facility] Communication Latia Trejo Spouse Health Care Agent Care Teams Keypuncher Relationship Specialty Start Date End Date Suman Simpson MD PCP - General 01/26/03 documented as of this encounter
--- OUTSIDE RECORDS SUMMARY | 2024-12-22 00:13 | External Medical Summary | Summary of Care ---
Author Name Unknown Organization [facility] Address [address] [place] [address] Phone [phone] Care Team Providers Care Bumper And Painter Name Role Phone Suman Simpson MD Primary Care Provider +1- [phone] Reason for Visit * Reason Onset Date Comments Advice 12/15/2024 Encounter Details Date Type Department Care Team (Late st Contact Info) Description 12/15/2024 Telephone [facility] [address] [place] [address] David Jaramillo MD [address] [facility] [place] [address] Advice Allergies Active Allergy Reactions Criticality Noted Date [...] to 2 as needed 30 Tablet 03/07/20 Active Additional Information Patient not taking.Reported [...] ons:COPD, group B, by GOLD 2017 classification ([facility] [...] Assessment & Plan (01/09/2022 2:18 PM EST): [facility] Triage Call: Reviewed case w/ Dr [...] stage renal disease 01/27/2023 08/24/2023 Atherosclerosis of [place] 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 09/13/2021 [...] mRNA, LNP-s, No Pre serve, 2-Dose Series ([employer]) 10/20/2021,02/28/2021,02/07/2021 COVID-19, MRNA-LNP, PF, 30 M CG/0.3 mL, 12 YRS AND ABOVE, IM ([employer]) 10/13/2023 Covid-19, Mrna, Lnp-s, Pf, B ivalent, [...] encounter Miscellaneous Notes * Telephone Encounter - Juliana Lundberg RN - 12/15/2024 2:36 PM EST Te with pt's daughter. She is aware that pt can drink this daily. He is continuing to follow diet plan as written while he was on dialysis. * Telephone Encounter - David Jaramillo MD - 12/15/2024 2:17 PM EST Yes he can take * Telephone Encounter - Juliana Lundberg RN - 12/15/2024 1:24 PM EST TE with pt's daughter who reports this pt broke his shoulder 2 weeks ago. Her question is whether he can take Boost with 20 grams of protein for healing? She was concerned due to his kidney function. documented in this encounter Plan of Treatment Upcoming Encounters Date Type Department Care Team (Late st Contact Info) Description 12/16/2024 1:30 PM EST Office Visit Orthopaedics [facility] [address] [place] [phone] Anirudh Lopez PA-C [address] [place] [address] 12/22/2024 3:00 PM EST Office Visit Cardiology, [facility] [address] [place] [address] Rosetta Velasco CRNP [address] [place] [address] [place] [address] 12/26/2024 2:50 PM EST [facility]tico[facility] Pharmacy, [facility] [place] [phone] [place] [address] [facility] [place] [address] 01/27/2025 2:30 PM EST Office Visit Interventional Pain Center [facility] [address] [place] [phone] Isis Mcrae PA-C [address] [place] [address] 03/13/2025 3:00 PM EDT Office Visit Nephrology, [facility] [address] [place] [address] David Jaramillo MD [address] [place] [address] 04/04/2025 2:40 PM EDT Office Visit Family Practice, [facility] [address] [facility] [place] [phone] Suman Simpson MD [address] [facility] [address] [place] [address] 04/26/2025 3:00 PM EDT Office Visit Pulmonary Medicine, [facility] [address] [place] [address] Bradley Yepez MD [address] [facility] [place] [phone] Health Maintenance Due Date Last Done Comments [...] Agents on File Name Relationship Healthcare Agent [facility] p Communication Latia Robles Ficlesliederrick Spouse Health Care Agent Care Teams Bumper And Painter Relationship Specialty Start Date End Date Suman Simpson MD PCP - General 01/26/03 documented as of this encounter
--- OUTSIDE RECORDS SUMMARY | 2024-12-22 00:14 | External Medical Summary | Summary of Care ---
Author Name Unknown Organization [facility] Address [address] [place] [address] Phone [phone] Care Team Providers Care Special Education Math Teacher Name Role Phone Suman Simpson MD Primary Care Provider +1- [phone] Reason for Visit * Reason Onset Date Comments Nurse Documentation 12/07/2024 Encounter Details Date Type Department Care Team (Late st Contact Info) Description 12/07/2024 Telephone [facility] [place] [address] [place] [address] Suman Simpson MD [address] [place] [address] Nurse Documentation Allergies Active Allergy Reactions Criticality Noted Date Comments Metolazone 07/29/2021 Severe HYponatremia Morphine Sulfate Other (Please comment) 006 hallucinate Oxycodone Other (Please comment) 07/07/2006 Hallucinate Penicillins 07/21/2011 Hallucinate documented as of this encounter (statuses as of 12/07/2024) Medications VITAMIN C 500 MG PO TABS [...] ons:COPD, group B, by GOLD 2017 classification ([place] [...] as of this encounter (statuses as of 12/07/2024) Active Problems Problem Noted Date Diagnosed Date [...] Assessment & Plan (01/09/2022 2:18 PM EST): [facility] Triage Call: Reviewed case w/ Dr [...] as of this encounter (statuses as of 12/07/2024) Resolved Problems Problem Noted Date Diagnosed Date Resolved Date Hypertensive chronic kidney disease with stage 5 chronic kidney disease or end stage renal disease 01/27/2023 08/24/2023 Atherosclerosis of [place] 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 09/13/2021 [...] as of this encounter (statuses as of 12/07/2024) Immunizations Name Administration Dates Next Due COVID-19 mRNA, LNP-s, No Pre serve, 2-Dose Series ([place]) 10/20/2021,02/28/2021,02/07/2021 COVID-19, MRNA-LNP, PF, 30 M CG/0.3 mL, 12 YRS AND ABOVE, IM ([facility]) 10/13/2023 Covid-19, Mrna, Lnp-s, Pf, B [...] 3:39 PM ASHISHT Sree Bishop RN * Do you have [...] Miscellaneous Notes * Telephone Encounter - Linda Yousif MED ASSIST - 12/07/2024 2:20 PM EST Received Fax for BFPROVIDERS: Dr. Suman Simpson ORDER received from [facility] Home Healthcare [facility] and FAXED documented in this encounter Plan of Treatment Upcoming Encounters Date Type Department Care Team (Late st Contact Info) Description 12/15/2024 3:20 PM EST [facility]acy[facility] [address] [place] [phone] [facility] [address] [facility] [place] [address] 12/16/2024 1:30 PM EST Office Visit Orthopaedics [facility] [address] [place] [address] Anirudh Lopez PA-C [address] [facility] [place] [address] 12/22/2024 3:00 PM EST Office Visit Cardiology, [facility] 132 [facility] [place] [address] Rosetta Velasco CRNP 400 [facility] [place], [place] [phone] 01/27/2025 2:30 PM EST Office Visit Interventional Pain Center [facility] 132 [facility] [place] [phone] Isis Mcrae PA-C [address] [facility] [place] [address] 03/13/2025 3:00 PM EDT Office Visit Nephrology, [facility] 200 [facility] [place] [address] David Jaramillo MD 200 [facility] [address] 04/04/2025 2:40 PM EDT Office Visit Family [facility] [address] [place] [phone] Suman Simpson MD [address] [place] [address] 04/26/2025 3:00 PM EDT Office Visit Pulmonary Medicine, [facility] 132 [facility] [place] [address] Bradley Yepez MD [address] [place] [address] Health Maintenance Due Date Last Done Comments [...] on File Name Relationship Healthcare Agent [facility] Communication Latia Trejo Spouse Health Care Agent Care Teams Special Education Math Teacher Relationship Specialty Start Date End Date Suman Simpson MD PCP - General 01/26/03 documented as of this encounter
--- OUTSIDE RECORDS SUMMARY | 2024-12-22 00:14 | External Medical Summary | Summary of Care ---
Author Name Unknown Organization [facility] Address [address] [place] [address] Phone [phone] Care Team Providers Care Toolmaker Name Role Phone Suman Simpson MD Primary Care Provider +1- [phone] Reason for Visit * Reason Onset Date Comments Home Health 12/05/2024 Encounter Details Date Type Department Care Team (Late st Contact Info) Description 12/05/[address] [facility] [address] [place] [address] Suman Simpson MD [address] [place] [address] Home Health Allergies Active Allergy Reactions Criticality Noted Date Comments Metolazone 07/29/2021 Severe HYponatremia Morphine Sulfate Other (Please comment) 006 hallucinate Oxycodone Other (Please comment) 07/07/2006 Hallucinate Penicillins 07/21/2011 Hallucinate documented as of this encounter (statuses as of 12/06/2024) Medications VITAMIN C 500 MG PO TABS [...] goal of less than 8.0% ([facility]) Use up to 4 times a day [...] GOLD 2017 classification ([facility]) Take 1 Capsule by mouth 3 times [...] goal of less than 8.0% ([facility]) Take 1 Tablet by mouth in the [...] by GOLD 2017 classification ([facility]),Dyspnea and respiratory abnormalities 2.5 mg NEBULIZER PRN 08/29/2024 08/29/2025 Active Albuterol Sulfate (Proventil) (2.5 MG/3ML) 0.083% inhalation solution 2.5 mgIndications:COPD, group B, by GOLD 2017 classification ([facility]),Dyspnea and respiratory abnormalities 2.5 mg NEBULIZER PRN 08/29/2024 08/29/2025 Active documented as of this encounter (statuses as of 12/06/2024) Active Problems Problem Noted Date Diagnosed Date [...] Assessment & Plan (01/09/2022 2:18 PM EST): [facility] Triage Call: Reviewed case w/ Dr [...] as of this encounter (statuses as of 12/06/2024) Resolved Problems Problem Noted Date Diagnosed Date Resolved Date Hypertensive chronic kidney disease with stage 5 chronic kidney disease or end stage renal disease 01/27/2023 08/24/2023 Atherosclerosis of [place] 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 09/13/2021 [...] as of this encounter (statuses as of 12/06/2024) Immunizations Name Administration Dates Next Due COVID-19 mRNA, LNP-s, No Pre serve, 2-Dose Series ([employer]) 10/20/2021,02/28/2021,02/07/2021 COVID-19, MRNA-LNP, PF, 30 M CG/0.3 mL, 12 YRS AND ABOVE, IM ([facility]) 10/13/2023 Covid-19, Mrna, Lnp-s, Pf, B [...] Miscellaneous Notes * Telephone Encounter - Barbara Michaud LPN - 12/05/2024 4:22 PM EST HH Concerns Gloria TEJADA, Calling from: [facility] Report/Concerns of: Update Symptoms: See Below Vitals: T 97.4 P 72 RR 16 BP 138/78 SP O2 97% RA Narrative: Gloria was out to see patient earlier today today for HH visit. PCP was aware that they have been having a hard time reaching him for HH care. Gloria stated that patient fell last week 11/28, Believes PCP is aware as patient has already seen orthopedics and has follow up appointment scheduled on 12/16/2024. Gloria stated that patient has several wounds that PCP did send a wound care referral for. Gloria stated that she counted 6 wounds----his legs are filling with fluid, these wounds are where the fluid is seeping through. She used items that patient had in the home to dress the areas- calcium alginate with silver and a dry dressing- she will be sending order over for PCP to sign. Patient does have a wound clinic appointment tomorrow and they will be send over new orders. Gloria did educate patient on the need to have weekly appointments and is agreeable. She also educated him on his salt intake as he had ham for dinner the other night. FYI to PCP [facility] documented in this encounter Plan of Treatment Upcoming Encounters Date Type Department Care Team (Late st Contact Info) Description 12/15/2024 3:20 PM EST Anticoagulation Pharmacy, [facility] [address] [facility] [phone] Alex [facility] [address] [facility] [address] 12/16/2024 1:30 PM EST Office Visit Orthopaedics [facility] [address] [place] [phone] Anirudh Lopez PA-C [address] [place] [address] 12/22/2024 3:00 PM EST Office Visit Cardiology, [facility] [place] [address] Rosetta Velasco, GUIDANCE AND CONTROL SYSTEM ENGINEER[address] [place] [address] 01/27/2025 2:30 PM EST Office Visit Interventional Pain Center [facility] [address] [place] [phone] Isis Mcrae PA-C [address] [place] [address] 03/13/2025 3:00 PM EDT Office [address], [address] [address] David Jaramillo MD [address] [place] [address] 04/04/2025 2:40 PM EDT [facility] [address] [facility] [place] [phone] Suman Simpson MD [address] [place] [address] 04/26/2025 3:00 PM EDT Office Visit Pulmonary Medicine, [facility] 132 [facility] [place] [address] Bradley Yepez MD [address] [place] [phone] Health Maintenance Due Date Last Done Comments [...] Agents on File Name Relationship Healthcare Agent [facility] Communication Latia Robles Ficlesliederrick Spouse Health Care Agent Care Teams Toolmaker Relationship Specialty Start Date End Date Suman Simpson MD PCP - General 01/26/03 documented as of this encounter
--- OUTSIDE RECORDS SUMMARY | 2024-12-22 00:14 | External Medical Summary | Summary of Care ---
Author Name Unknown Organization [facility] Address [address] [place] [address] Phone [phone] Care Team Providers Care Admission Nurse Coordinator Name Role Phone Suman Simpson MD Primary Care Provider [phone] Encounter Details Date Type Department Care Team (Late st Contact Info) Description 12/01/2024 2:00 PM EST Office Visit Orthopaedics [facility] [address] [place] [address] Anirudh Lopez PA-C [address] [place] [address] Closed 3-part fracture of proximal end of left humerus, initial encounter* Allergies Active Allergy Reactions Criticality Noted Date Comments Metolazone 07/29/2021 Severe HYponatremia Morphine Sulfate Other (Please comment) 006 hallucinate Oxycodone Other (Please comment) 07/07/2006 Hallucinate Penicillins 07/21/2011 Hallucinate documented as of this encounter (statuses as of 12/05/2024) Medications VITAMIN C 500 MG PO TABS [...] hemoglobin A1c goal of less than 8.0% ([facility]) Use up to 4 times a [...] GOLD 2017 classification ([facility]) Take 1 Capsule by mouth 3 times a day as needed for Cough. 30 Capsule 1 08/23/20 24 Active Vitamin D3 25 MCG (1000 UT) Oral Tablet (Vitamin D3) Take 1 Tablet by mouth in the morning. 30 Tablet 5 08/24/20 24 Active Breo Ellipta 100-25 MCG/ACT Inhalation Aerosol Powder Breath ActivatedIndicati ons:COPD, group B, by GOLD 2017 classification ([facility] [...] hemoglobin A1c goal of less than 8.0% ([facility]) Take 1 Tablet by mouth in [...] J44.9 1 Each 3 10/24/20 24 Active Amoxicillin-Pot Clavulanate 875-125 MG Oral Tablet (Augmentin) Take 1 Tablet by mouth in the morning and 1 Tablet before bedtime. 11/06/20 24 Active Doxycycline Hyclate 100 MG Oral Capsule 2 times a day. 11/06/20 24 Active HYDROcodone-Aceta minophen 5-325 MG Oral Tablet Take 1 Tablet by mouth every 6 hours as needed for Pain, Moderate for up to 3 days. 12 Tablet 12/01/19 25 2024 Hospital, Clinic, or Other Facility Administered Medication Ordered Dose Route Frequency Start Date End Date Status Albuterol Sulfate (Proventil) (5 MG/ML) 0.5% *conc* inhalation solution 2.5 mgIndications:COPD, group B, by GOLD 2017 classification ([facility]),Dyspnea and respiratory abnormalities 2.5 mg NEBULIZER PRN 08/29/2024 08/29/2025 Active Albuterol Sulfate (Proventil) (2.5 MG/3ML) 0.083% inhalation solution 2.5 mgIndications:COPD, group B, by GOLD 2017 classification ([facility]),Dyspnea and respiratory abnormalities 2.5 mg NEBULIZER PRN 08/29/2024 08/29/2025 Active documented as of this encounter (statuses as of 12/05/2024) Active Problems Problem Noted Date Diagnosed Date [...] Assessment & Plan (01/09/2022 2:18 PM EST): [facility] Triage Call: Reviewed case w/ Dr [...] as of this encounter (statuses as of 12/05/2024) Resolved Problems Problem Noted Date Diagnosed Date [...] as of this encounter (statuses as of 12/05/2024) Immunizations Name Administration Dates Next Due COVID-19 mRNA, LNP-s, No Pre serve, 2-Dose Series ([employer]) 10/20/2021,02/28/2021,02/07/2021 COVID-19, MRNA-LNP, PF, 30 M CG/0.3 mL, 12 YRS AND ABOVE, IM [facility] 10/13/2023 Covid-19, Mrna, Lnp-s, [...] Progress Notes * Anirudh Lopez PA-C - 12/01/2024 2:10 PM EST Subjective Tre Trejo is a 84 year old male. No chief complaint on file. HPI: Established patient with a new complaint of left shoulder pain status post fall presents to Urgent Care today. The patient is here with his family. States he fell directly onto a dresser in his bedroom pointing towards striking the proximal humerus directly when he fell. Admits to pain and swelling. Denies numbness or tingling. I have treated this patient in the past for a right clavicle fracture status post fall upwards of 2 years ago with successful outcome. States his symptoms are tolerable at rest. Will need radiographs today left shoulder. Currently has a C diff stool culture lab pending. 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 Vitamin-B Complex Oral Tablet Take 1 Tablet by mouth in the morning. Allopurinol 100 [...] the morning. (Patient not taking: Reported on 11/11/2024) 14 Each 3 Sennosides-Docusate Sodium 8.6-50 MG Oral Tablet (Senokot-S) Take 1 Tablet by mouth at bedtime as needed for Constipation. May increase to 2 as needed (Patient not taking: Reported on 11/11/2024) 30 Tablet 11 Tamsulosin HCl 0.4 MG [...] to affected area daily. 85 g 1 Ondansetron 4 MG Oral Tablet Disintegrating (Zofran) Place 1 Tablet on tongue every 8 hours as needed for Nausea. dissolve on tongue. (Patient not taking: Reported on 11/11/2024) 20 Tablet 0 Benzonatate 100 MG Oral Capsule Take 1 [...] MOUTH TWICE A DAY 180 Capsule 1 oxygen IN GAS Use 2.5 L/min(Oxygen) as directed at bedtime. Full Kit Nebulizer Set Use with Nebulizer Medication EVERY SIX HOURS WHILE AWAKE as directed. Dx Code: J44.9 1 Each 3 Amoxicillin-Pot Clavulanate 875-125 MG Oral Tablet (Augmentin) Take 1 Tablet by mouth in the morning and 1 Tablet before bedtime. Doxycycline Hyclate 100 MG Oral Capsule 2 times a day. Current Facility-Administered Medications Medication Dose Route Frequency Provider Last Rate Last Admin Albuterol Sulfate (Proventil) (5 MG/ML) 0.5% *conc* inhalation solution 2.5 mg 2.5 mg Nebulizer PRN Albuterol Sulfate (Proventil) (2.5 MG/3ML) 0.083% inhalation solution 2.5 mg 2.5 mg Nebulizer PRN 2.5 mg at 09/15/24 1151 Past Medical History: Diagnosis Date Allergic rhinitis [...] performed by Maurisio Mike, DO at OR [facility] GRAFT EAR CARTILAGE TO NOSE/EAR N/A 02/09/2019 GRAFT EAR CARTILAGE TO EAR OR NOSE performed by Amanda Marcelino MD at [facility] INFORMATION 1988 ear surg, nerve cut dysequilibrium left [place] INFORMATION amputation tip rt index finger, accident INFORMATION back surgery INJECT DX/THER SUBSTANCE INTERLAMINAR LUMBAR/SACRAL W IMAGE GUIDE 06/27/2019 INJECTION SPINE LUMBAR OR SACRAL performed by [facility] Cousins, DO at OR [facility] INJECT DX/THER SUBSTANCE INTERLAMINAR LUMBAR/SACRAL W IMAGE GUIDE 07/14/2019 INJECTION SPINE LUMBAR OR SACRAL performed by [facility] Cousins, DO at OR [facility] KNEE ARTHROSCOPY, DIAGNOSTIC Knee Arthroscopy right Dr Wang L-/S-SPINE PARAVERTEBRAL FACET INJ,1 LEVEL 08/18/2019 L-/S-SPINE PARAVERTEBRAL FACET INJ, 1 LEVEL performed by [facility] Cousins, DO at OR [facility] L-/S-SPINE PARAVERTEBRAL FACET INJ,1 LEVEL 09/05/2019 L-/S-SPINE PARAVERTEBRAL FACET INJ, 1 LEVEL performed by [facility] Cousins, DO at OR [facility] NASAL SEPTUM CARTILAGE FOR GRAFT N/A 02/09/2019 OBTAIN CARTILAGE GRAFT NASAL SEPTUM performed by Amanda Marcelino MD at OR [facility] RECONSTRUCTION OF NOSE/SEPTUM N/A 02/09/2019 RHINOPLASTY COMPLETE INCLUDING MAJOR SEPTAL REPAIR performed by Amanda Marcelino MD at OR [facility] REMOVE CATARACT, INSERT LENS PROSTH Bilateral 2017 Dr Vinson REMOVE NECK SPINE LAMINA, 1-2 SEGS Cervical Laminectomy [place] REMOVE RIB CARTILAGE FOR GRAFT N/A 02/09/2019 OBTAIN CARTILAGE GRAFT COSTOCHONDRAL performed by Amanda Marcelino MD at OR [facility] REMOVE TONSILS & ADENOIDS, UNDER 12 Tonsillectomy/Adenoids,<12 Y/O REPAIR INGUINAL HERNIA, UNDER AGE 5 Inguinal Hernia Repair,6mo-5yr,Reduc REPAIR RUPTURED ROTATOR CUFF, CHRON Rotator Repair Cuff,Chronic left REVISION OF PALATE, PHARYNX/UVULA 03/28/2014 PALATOPHARYNGOPLASTY performed by Too Medina MD at OR [facility] SMALL BOWEL ENDOSCOPY W/BX 06/07/2010 hiatal hernia bxs done--Jasmyn repeat in one yr Review of patient's allergies indicates: Allergen Reactions Metolazone Severe HYponatremia Morphine [Morphine Sulfate] Other (Please comment) hallucinate Oxycodone [Oxycodone] Other (Please comment) Hallucinate Penicillins Hallucinate Family History Problem Relation Name Age of Onset Cancer Mother lung dec57 Gastro-intestinal disorder Father obstruction oct Family Status Relation Status Mo Fa Bro Carmina Alive Carmina Alive Social History Socioeconomic History Marital status: Spouse [...] Concern No 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 (Adult - for ages 18 years and over): No Does your family have trouble paying for medicine? (Household - for ages 0-17 years): Not on file Food Insecurity: No Food Insecurity (11/08/2024) Food Insecurity Do you need food for this week? (Adult - for ages 18 years and over): No Are you able to get enough food for your family? (Household - for ages 0-17 years): Not on file Does your family need food this week? (Household - for ages 0-17 years): Not on file Do you always have enough food for your family? (Household - for ages 0-17 years): Not on file Transportation Needs: No Transportation Needs (11/08/2024) Transportation Needs Do you have trouble getting a ride to medical visits or work? (Adult - for ages 18 years and over):Not on file Does your family have a hard time getting a ride to doctors visits? (Household - for ages 0-17 years): Not on file Has lack of transportation kept you from medical appointments, meetings, work, or from getting things needed for daily living? Check all that apply. (Adult - for ages 18 years and over): No Do you (or your family) have trouble finding or paying for a ride (transportation)? (Household - for ages 0-17 years): Not on file Social Connections: Socially Integrated (11/08/2024) Social Connections How often do you feel lonely or isolated from those around you? (Adult - for ages 18 years and over): Never Housing Stability: Low Risk (11/08/2024) Housing Stability Do you currently live in a group home or have no steady place to sleep at night? (Adult - for ages 18 years and over): No Do you think you are at risk of becoming homeless? (Adult - for ages 18 years and over): Not on file Does your family worry about paying for your home or becoming homeless? (Household - for ages 0-17 years): Not on file Are you homeless or worried that you might be in the future? (Adult - for ages 18 years and over): No Are you (or your family) homeless or worried that you might be in the future? (Household - for ages0-17 years): Not on file Objective There were no vitals taken for this visit. complete review of systems negative General: alert and oriented x3 male, no acute distress, appears currently stated age, pleasant, well nourished Skin: Left upper extremity including shoulder, torso and upper arm does not reveal any erythema, ecchymosis, abrasion, laceration, skin breakdown otherwise. There is some swelling within the dorsum of the hand and fingers as the patient states he has been keeping the hand in a hand position by his side. Will discuss this further with the patient and family Neurovascular: Left upper extremity reveals distal pulses [...] proximal humerus fracture identified on all three views. There is advancing degeneration of the AC joint as well as moderate changes in the glenohumeral joint. Official report to follow accordingly Personal interpretation and documentation regarding today's plain film radiographs performed by myself. ASSESSMENT/PLAN: Closed 3-part fracture of proximal end of left humerus, initial encounter (Primary) Follow Up: Return in about 2 weeks (around 12/15/2024) for Clinic Visit. | For: Clinic Visit Impression: Left three-part proximal humerus fracture Plan: Today 's findings were discussed with the patient. They were educated regarding their diagnosis. Multiple treatment options discussed and agreed upon, including placing the patient in a properly fitted sling with waist band application. Sling also was larger and extended to the MCP joints in a proper fashion. The patient will ice of the left shoulder and was shown how to elevate the hand tohelp with his swelling without moving the humerus. Will prescribe a short course of narcotic pain medication to help assist with his symptoms as he states [id number] oral analgesics does not providing sufficient relief. I would like to see the patient back in 10-14 days for clinical reassessment and repeat radiographs three views left shoulder. The patient has no other questions or concerns. Pleased with today 's care. Call sooner if needed. This chart was completed in part utilizing [employer] Voice Recognition Software. Grammatical errors, random word insertions, prounoun errors, and incomplete sentences are an occasional consequence of this system due to software limitations, ambient noise, and hardware issues. Any formal questions or concerns about the content, text, or information contained within the body of this dictation should be directly addressed to the provider for clarification. Anirudh Lopez PA-C documented in this encounter Miscellaneous Notes * Addendum Note - Georgi Chacon CMA - 12/05/2024 10:21 AM ESTAddended by: GEORGI CHACON on: 12/05/2024 10:21 AM Modules accepted: Orders documented in this encounter Plan of Treatment Upcoming Encounters Date Type Department Care Team (Late st Contact Info) Description 12/15/2024 3:20 PM EST Anticoagulation Pharmacy, [address] [place] [phone] [facility] [address] [facility] [place] [address] 12/16/2024 1:30 PM EST Office Visit Orthopaedics [facility] [address] [facility] [place] [address] Anirudh Lopez PA-C [address] [facility] [place] [address] 12/22/2024 3:00 PM EST Office Visit Cardiology, [facility] [address] [facility] [place] [address] Rosetta Velasco CRNP [address] [place], [place] [address] [address] 01/27/2025 2:30 PM EST Office Visit Interventional Pain Center [facility] [address] [facility] [place] [phone] Isis Mcrae PA-C 132 [facility] [place] [address] 03/13/2025 3:00 PM EDT Office Visit Nephrology, [facility] [address] [facility] [place] [address] David Jaramillo MD [address] [facility], [place] [address] 04/04/2025 2:40 PM EDT Office [facility] [address] [facility] [phone] Suman Simpson MD [address] [facility] [address] 04/26/2025 3:00 PM EDT Office Visit Pulmonary Medicine, [facility] [address] [facility] [place] [address] MarleniBradley stover MD [address] [place] [address] Health Maintenance Due Date Last Done Comments [...] Esophageal reflux Atrial fibrillation, unspecified type (HCC) Closed 3-part fracture of proximal end of left humerus, initial encounter- Primary documented in this encounter Additional Health Concerns Infection Onset Date Last Indicated Resolved Time C. difficile Rule-Out 12/01/2024 12/01/20242024 12:34 AM EST documented as of this encounter Advance Directives * [...] Trejo Spouse Health Care Agent Care Teams Admission Nurse Coordinator Relationship Specialty Start Date End Date Suman Simpson MD PCP - General 01/26/03 documented as of this encounter
--- OUTSIDE RECORDS SUMMARY | 2024-12-22 00:14 | External Medical Summary | Summary of Care ---
Author Name Unknown Organization [facility] Address [address] [place] [address] Phone [phone] Care Team Providers Care Chro Name Role Phone Suman Simpson MD Primary Care Provider +1- [phone] Encounter Details Date Type Department Care Team (Late st Contact Info) Description 12/01/2024 2:00 PM EST Office Visit Orthopaedics [facility] [address] [place] [address] Anirudh Lopez PA-C [address] [place] [address] Closed 3-part fracture of proximal end of left humerus, initial encounter* Allergies Active Allergy Reactions Criticality Noted Date Comments Metolazone 07/29/2021 Severe HYponatremia Morphine Sulfate Other (Please comment) 006 hallucinate Oxycodone Other (Please comment) 07/07/2006 Hallucinate Penicillins 07/21/2011 Hallucinate documented as of this encounter (statuses as of 12/01/2024) Medications VITAMIN C 500 MG PO TABS [...] hemoglobin A1c goal of less than 8.0% ([facility]) Use up to 4 times [...] chronic kidney disease not on chronic dialysis ([facility]) Take 2 tablets in AM [...] s:COPD, group B, by GOLD 2017 classification ([facility]) Take 1 Capsule by mouth 3 times a day as needed for Cough. 30 Capsule 1 08/23/20 24 Active Vitamin D3 25 MCG (1000 UT) Oral Tablet (Vitamin D3) Take 1 Tablet by mouth in the morning. 30 Tablet 5 08/24/20 24 Active Breo Ellipta 100-25 MCG/ACT Inhalation Aerosol Powder Breath ActivatedIndicati ons:COPD, group B, by GOLD 2017 classification ([facility]) Inhale 1 Puff by mouth [...] hemoglobin A1c goal of less than 8.0% ([facility]) Take 1 Tablet by mouth [...] up to 3 days. 12 Tablet 12/01/19 025 Active Hospital, Clinic, or Other Facility Administered Medication Ordered Dose Route Frequency Start Date End Date Status Albuterol Sulfate (Proventil) (5 MG/ML) 0.5% *conc* inhalation solution 2.5 mgIndications:COPD, group B, by GOLD 2017 classification ([facility]),Dyspnea and respiratory abnormalities 2.5 mg NEBULIZER PRN 08/29/2024 08/29/2025 Active Albuterol Sulfate (Proventil) (2.5 MG/3ML) 0.083% inhalation solution 2.5 mgIndications:COPD, group B, by GOLD 2017 classification ([facility]),Dyspnea and respiratory abnormalities 2.5 mg NEBULIZER PRN 08/29/2024 08/29/2025 Active documented as of this encounter (statuses as of 12/01/2024) Active Problems Problem Noted Date Diagnosed Date [...] Assessment & Plan (01/09/2022 2:18 PM EST): [facility] Triage Call: Reviewed case w/ Dr [...] as of this encounter (statuses as of 12/01/2024) Resolved Problems Problem Noted Date Diagnosed Date Resolved Date Hypertensive chronic kidney disease with stage 5 chronic kidney disease or end stage renal disease 01/27/2023 08/24/2023 Atherosclerosis of [place] 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 09/13/2021 [...] as of this encounter (statuses as of 12/01/2024) Immunizations Name Administration Dates Next Due COVID-19 mRNA, LNP-s, No Pre serve, 2-Dose Series ([employer]) 10/20/2021,02/28/2021,02/07/2021 COVID-19, MRNA-LNP, PF, 30 M CG/0.3 mL, 12 YRS AND ABOVE, IM ([facility]) 10/13/2023 Covid-19, Mrna, Lnp-s, Pf, [...] 11/08/2024 Does the household have a re lar source of income? 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 GRAFT EAR CARTILAGE TO NOSE/EAR N/A 02/09/2019 GRAFT EAR CARTILAGE TO EAR OR NOSE performed by Amanda Marcelino MD at OR [facility] INFORMATION 1988 ear surg, nerve cut dysequilibrium left [facility] INFORMATION amputation tip rt index finger, accident INFORMATION back surgery INJECT DX/THER SUBSTANCE INTERLAMINAR LUMBAR/SACRAL W IMAGE GUIDE 06/27/2019 INJECTION SPINE LUMBAR OR SACRAL performed by Grant Jeromy Mike, at OR [facility] INJECT DX/THER SUBSTANCE INTERLAMINAR LUMBAR/SACRAL W IMAGE GUIDE 07/14/2019 INJECTION SPINE LUMBAR OR SACRAL performed by Grant Jeromy Mike, at OR [facility] KNEE ARTHROSCOPY, DIAGNOSTIC Knee Arthroscopy right Dr Wang L-/S-SPINE PARAVERTEBRAL FACET INJ,1 LEVEL 08/18/2019 L-/S-SPINE PARAVERTEBRAL FACET INJ, 1 LEVEL performed by Grant Jeromy Mike DO at OR [facility] L-/S-SPINE PARAVERTEBRAL FACET INJ,1 LEVEL 09/05/2019 L-/S-SPINE PARAVERTEBRAL FACET INJ, 1 LEVEL performed by Grant Jeromy Mike DO at OR [facility] NASAL SEPTUM CARTILAGE FOR GRAFT N/A 02/09/2019 OBTAIN CARTILAGE GRAFT NASAL SEPTUM performed by Amanda Marcelino MD at OR [facility] RECONSTRUCTION OF NOSE/SEPTUM N/A 02/09/2019 RHINOPLASTY COMPLETE INCLUDING MAJOR SEPTAL REPAIR performed by Amanda Marcelino MD at OR [facility] REMOVE CATARACT, INSERT LENS PROSTH Bilateral 2017 Dr Vinson REMOVE NECK SPINE LAMINA, 1-2 SEGS Cervical Laminectomy [facility] REMOVE RIB CARTILAGE FOR GRAFT N/A 02/09/2019 OBTAIN CARTILAGE GRAFT COSTOCHONDRAL performed by Amanda Marcelino MD at OR [facility] REMOVE TONSILS & ADENOIDS, UNDER 12 Tonsillectomy/Adenoids,<12 Y/O REPAIR INGUINAL HERNIA, UNDER AGE 5 Inguinal Hernia Repair,6mo-5yr,Reduc REPAIR RUPTURED ROTATOR CUFF, CHRON Rotator Repair Cuff,Chronic left REVISION OF PALATE, PHARYNX/UVULA 03/28/2014 PALATOPHARYNGOPLASTY performed by Too Medina MD at OR [facility] SMALL BOWEL ENDOSCOPY W/BX 06/07/2010 hiatal hernia bxs done--Barretts repeat in one yr Review of patient's allergies indicates: Allergen Reactions Metolazone Severe HYponatremia Morphine [Morphine Sulfate] Other (Please comment) hallucinate Oxycodone [Oxycodone] Other (Please comment) Hallucinate Penicillins Hallucinate Family History Problem Relation Name Age of Onset Cancer Mother lung Gastro-intestinal disorder Father obstruction oct Family Status [...] Concern No 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 I would like to see the patient back in 10-14 days for clinical reassessment and repeat radiographs three views left shoulder. The patient has no other questions or concerns. Pleased with today 's care. Call sooner if needed. This chart was completed in part utilizing [employer] Speech Voice Recognition Software. Grammatical errors, random [...] Anirudh Lopez PA-C documented in this encounter Plan of Treatment Upcoming Encounters Date Type Department Care Team (Late st Contact Info) Description 12/15/2024 3:20 PM EST Anticoagulation Pharmacy, [facility] [address] [facility] [phone] [facility] [address] [facility] [place] [address] 12/16/2024 1:30 PM EST Office Visit Orthopaedics [facility] [address] [place] [address] Anirudh Lopez PA-C [address] [facility] [place] [address] 12/22/2024 3:00 PM EST Office Visit Cardiology, [facility] 132 [facility] [place] [address] Rosetta Velasco CRNP [address] [facility] [place] [address] 03/13/2025 3:00 PM EDT Office Visit Nephrology, [facility] [address] [facility] [address] David Jaramillo MD [address] [facility] [address] 04/04/2025 2:40 PM EDT Office Visit Family Practice, [facility] [address] [place] [phone] Suman Simpson MD [address] [place] [address] 04/26/2025 3:00 PM EDT Office Visit Pulmonary Medicine, [facility] 132 [facility] [place] [address] Bradley Yepez MD [address] [facility] [place] [address] Health Maintenance Due Date Last Done Comments [...] Indicated Resolved Time C. difficile Rule-Out 12/01/2024 12/01/2024 documented as of this encounter Advance Directives [...] Agents on File Name Relationship Healthcare Agent [facility] Communication Latia Trejo Spouse Health Care Agent Care Teams Chro Relationship Specialty Start Date End Date Suman Simpson MD PCP - General 01/26/03 documented as of this encounter
--- OUTSIDE RECORDS SUMMARY | 2024-12-22 00:14 | External Medical Summary | Summary of Care ---
Author Name Unknown Organization [facility] Address [address] [place] [address] Phone [phone] Care Team Providers Care Summer Babysitter Name Role Phone Suman Simpson MD Primary Care Provider +1- [phone] Reason for Visit * Reason Onset Date Comments Advice 12/15/2024 Encounter Details Date Type Department Care Team (Late st Contact Info) Description 12/15/2024 Telephone [facility] [address] [place] [address] David Jaramillo MD 200 [place] [address] Advice Allergies Active Allergy Reactions Criticality Noted [...] Assessment & Plan (01/09/2022 2:18 PM EST): [facility] Triage Call: Reviewed case w/ Dr [...] stage renal disease 01/27/2023 08/24/2023 Atherosclerosis of [place] 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 (Household - for ages [...] of Assessment Author No 02/09/2019 3:39 PM EDSree Bruno RN documented as of this encounter Mental Status * Because of a physical, mental, or emotional condition, do you have serious difficulty concentrating, remembering, or making decisions? (5 years old or older) Answer Entry Date Author No 02/09/2019 3:39 PM Sree Cunningham RN documented in this encounter Miscellaneous Notes * Telephone Encounter - David Jaramillo MD [...] 12/16/2024 1:30 PM EST Office Visit Orthopaedics [facility] [address] [place] [phone] Anirudh Lopez PA-C [address] [place] [address] 12/22/2024 3:00 PM EST Office Visit Cardiology, [facility] 132 [facility] [place] [address] Rosetta Velasco CRNP [address] [place] [address] 12/26/2024 2:50 PM EST [address]acy, [address] [phone] [address] [address] 01/27/2025 2:30 PM EST Office Visit Interventional Pain Center [facility] [address] [facility] [place] [phone] Isis Mcrae PA-C [address] [facility] [address] 03/13/2025 3:00 PM EDT Office Visit Nephrology, [facility] [address] [facility] [place] [address] David Jaramillo MD [address] [facility] [place], [place] [address] 04/04/2025 2:40 PM EDT Office Visit Family Practice, [facility] [address] [facility] [phone] Suman Simpson MD 226 [facility] [place] [address] 04/26/2025 3:00 PM EDT Office Visit Pulmonary Medicine, [facility] 132 [facility] [place] [address] Bradley Yepez MD [address] [place] [facility] [place] [address] Health Maintenance Due Date Last Done Comments [...] Agents on File Name Relationship Healthcare Agent Relationsmn p Communication Latia Robles Neil Spouse Health Care Agent Care Teams Summer Babysitter Relationship Specialty Start Date End Date Suman Simpson MD PCP - General 01/26/03 documented as of this encounter
--- OUTSIDE RECORDS SUMMARY | 2024-12-22 00:14 | External Medical Summary | Summary of Care ---
Author Name Unknown Organization [facility] Address [address] [place] [address] Phone [phone] Care Team Providers Care Recharger Name Role Phone Suman Simpson MD Primary Care Provider +1- [phone] Reason for Visit * Reason Onset Date Comments Home Health 12/09/2024 Encounter Details Date Type Department Care Team (Late st Contact Info) Description 12/09/2024 Telephone [facility] [address] [place] [address] Suman Simpson MD [address] [place] [address] Home Health Allergies Active Allergy Reactions Criticality Noted Date Comments Metolazone 07/29/2021 Severe HYponatremia Morphine Sulfate Other (Please comment) 006 hallucinate Oxycodone Other (Please comment) 07/07/2006 Hallucinate Penicillins 07/21/2011 Hallucinate documented as of this encounter (statuses as of 12/09/2024) Medications VITAMIN C 500 MG PO TABS [...] as of this encounter (statuses as of 12/09/2024) Active Problems Problem Noted Date Diagnosed Date [...] Assessment & Plan (01/09/2022 2:18 PM EST): [facility] Triage Call: Reviewed case w/ Dr [...] as of this encounter (statuses as of 12/09/2024) Resolved Problems Problem Noted Date Diagnosed Date Resolved Date Hypertensive chronic kidney disease with stage 5 chronic kidney disease or end stage renal disease 01/27/2023 08/24/2023 Atherosclerosis of [place] 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 09/13/2021 [...] as of this encounter (statuses as of 12/09/2024) Immunizations Name Administration Dates Next Due COVID-19 mRNA, LNP-s, No Pre serve, 2-Dose Series ([employer]) 10/20/2021,02/28/2021,02/07/2021 COVID-19, MRNA-LNP, PF, 30 M CG/0.3 mL, 12 YRS AND ABOVE, IM ([facility]) 10/13/2023 Covid-19, Mrna, Lnp-s, Pf, B [...] Telephone Encounter - Barbara Michaud LPN - 12/09/2024 3:33 PM EST Concerns Isael, Calling from: [facility] Report/Concerns of: Update Symptoms: See Below Vitals: T 97.0 P 70 RR 16 BP 106/70 SP O2 95% RA Narrative: Gloria stated that she was out to see patient earlier today for an add on visit from the [facility]ound [facility]. Patient saw wound clinic yesterday, they took culture and wanted nursing to check on the wound. Gloria was assesing the wound, he is diabetic so she was asking what his BS was this morning, he didn't check it, then asked about last night BS, again he did not check it, he has been non-compliant with check his BS. He did say that he checked his BS the other day as he was feeling funny--BS was 225, he couldn't tell her what time of day, only that it was after he ate. FYI to PCP [facility] documented in this encounter Plan of Treatment Upcoming Encounters Date Type Department Care Team (Late st Contact Info) Description 12/15/2024 3:20 PM EST Anticoagulation Pharmacy, [place] [facility] [place] [phone] [facility] [address] [facility] [place] [address] 12/16/2024 1:30 PM EST Office Visit Orthopaedics [facility] [address] [place] [phone] Anirudh Lopez PA-C [address] [place] [address] 12/22/2024 3:00 PM EST Office Visit Cardiology, [facility] [address] [place] [address] Rosetta Velasco CRNP [address] [place], [place] [address] [address] 01/27/2025 2:30 PM EST Office Visit Interventional Pain Center [facility] [address] [place] [phone] Isis Mcrae PAPennie [address] [place] [address] 03/13/2025 3:00 PM EDT Office Visit Nephrology, [facility] [address] [place] [address] [address] David Jaramillo MD [address] [place] [address] [address] 04/04/2025 2:40 PM EDT Office Visit Family Practice, [place] [address] [place] [phone] Suman Simpson MD [address] [place] [address] 04/26/2025 3:00 PM EDT Office Visit Pulmonary Medicine, [facility] [address] [place] [address] Bradley Yepez MD [address] [facility] [place] [address] Health Maintenance Due Date Last Done Comments [...] Agents on File Name Relationship Healthcare Agent Relationsar p Communication Latia Robles Ignacioderrick Spouse Health Care Agent Care Teams Recharger Relationship Specialty Start Date End Date Suman Simpson MD PCP - General 01/26/03 documented as of this encounter
--- OUTSIDE RECORDS SUMMARY | 2024-12-22 00:14 | External Medical Summary | Summary of Care ---
Author Name Unknown Organization [facility] Address [address] [place] [address] Phone [phone] Care Team Providers Care Carbonating Stone Cleaner Name Role Phone Suman Simpson MD Primary Care Provider +1- [phone] Reason for Visit * Reason Onset Date Comments Dosage Adjustment Via Phone ([facility]) Encounter Details Date Type Department Care Team (Late st Contact Info) Description 12/02/2024 Telephone Pharmacy, [facility] [address] [place] [phone] [facility] [address] [place] [address] Dosage Adjustment Via Phone ([facility]) Allergies Active Allergy Reactions Criticality Noted Date Comments Metolazone 07/29/2021 Severe HYponatremia Morphine Sulfate Other (Please comment) 006 hallucinate Oxycodone Other (Please comment) 07/07/2006 Hallucinate Penicillins 07/21/2011 Hallucinate documented as of this encounter (statuses as of 12/02/2024) Medications VITAMIN C 500 MG PO TABS [...] hemoglobin A1c goal of less than 8.0% ([facility]) Use up to 4 times [...] chronic kidney disease not on chronic dialysis ([facility]) Take 2 tablets in AM [...] s:COPD, group B, by GOLD 2017 classification ([facility]) Take 1 Capsule by mouth 3 times a day as needed for Cough. 30 Capsule 1 08/23/20 24 Active Vitamin D3 25 MCG (1000 UT) Oral Tablet (Vitamin D3) Take 1 Tablet by mouth in the morning. 30 Tablet 5 08/24/20 24 Active Breo Ellipta 100-25 MCG/ACT Inhalation Aerosol Powder Breath ActivatedIndicati ons:COPD, group B, by GOLD 2017 classification ([facility]) Inhale 1 Puff by mouth [...] hemoglobin A1c goal of less than 8.0% ([facility]) Take 1 Tablet by mouth [...] mgIndications:COPD, group B, by GOLD 2017 classification ([facility]),Dyspnea and respiratory abnormalities 2.5 mg NEBULIZER PRN 08/29/2024 08/29/2025 Active Albuterol Sulfate (Proventil) (2.5 MG/3ML) 0.083% inhalation solution 2.5 mgIndications:COPD, group B, by GOLD 2017 classification ([facility]),Dyspnea and respiratory abnormalities 2.5 mg NEBULIZER PRN 08/29/2024 08/29/2025 Active documented as of this encounter (statuses as of 12/02/2024) Active Problems Problem Noted Date Diagnosed Date [...] COPD, group B, by GOLD 2017 classification 09/13 /2023 Rheumatoid arthritis 02/18/2023 Other specified hypothyroidism 01/27/2023 [...] Assessment & Plan (01/09/2022 2:18 PM EST): [facility] Triage Call: Reviewed case w/ [...] as of this encounter (statuses as of 12/02/2024) Resolved Problems Problem Noted Date Diagnosed Date Resolved Date Hypertensive chronic kidney disease with stage 5 chronic kidney disease or end stage renal disease 01/27/2023 08/24/2023 Atherosclerosis of [place] 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 09/13/2021 [...] as of this encounter (statuses as of 12/02/2024) Immunizations Name Administration Dates Next Due COVID-19 mRNA, LNP-s, No Pre serve, 2-Dose Series ([employer]) 10/20/2021,02/28/2021,02/07/2021 COVID-19, MRNA-LNP, PF, 30 M CG/0.3 mL, 12 YRS AND ABOVE, IM ([facility]) 10/13/2023 Covid-19, Mrna, Lnp-s, Pf, B ivalent, [...] Notes * Telephone Encounter - Helen Boyer RPh - 12/02/2024 12:55 PM EST Spoke to Juliana, we will increase his weekly dose now to 5 mg Sun, Tue, Thur and 2.5 mg all other days. Follow up 12/15 as scheduled. Helen Boyer, PharmD, BCACP Clinical Pharmacist Medication Therapy Disease Management 12/02/2024, 12:57 PM * Telephone Encounter - Kay Hill CPhT - 12/02/2024 11:50 AM EST Caller's name: Juliana Preferred call back number(OFFICE NUMBER FOR ): [phone] Reason for call: Pt broke shoulder and has started drinking Boost yesterday. Pt will be drinking 1/day unless advise that he should need more. Pt will need dosing adjustments made while drinking Boost. Thank you, Kay Hill CPhT Commercial Service Technician II [facility] [address] [place] [address] Dr. Veliz [address] [place] [address] [id number] 12/02/2024,11:50 AM documented in this encounter Plan of Treatment Upcoming Encounters Date Type Department Care Team (Late st Contact Info) Description 12/15/2024 3:20 PM EST Anticoagulation Pharmacy, [place] [address] [place] [phone] [facility] [address] [facility] [place] [address] 12/16/2024 1:30 PM EST Office Visit [facility] [address] [facility] [place] [address] Anirudh Lopez PA-C 132 [facility] [place] [address] 12/22/2024 3:00 PM EST Office Visit Cardiology, [facility] [address] [facility] [place] [address] Rosetta Velasco CRNP [address] [facility] [place] [address] 01/27/2025 2:30 PM EST Office Visit Interventional [facility] [address] [place] [phone] Isis Mcrae PA-C [address] [place] [address] 03/13/2025 3:00 PM EDT Office Visit Nephrology, [facility] [address] [place] [address] David Jaramillo MD [address] [place] [address] 04/04/2025 2:40 PM EDT Office Visit Family Practice, [facility] [place] [phone] Suman Simpson MD [address] [facility] [place] [address] 04/26/2025 3:00 PM EDT Office Visit Pulmonary Medicine, [facility] [address] [facility] [place] [address] Bradley Yepez MD [address] [facility] [phone] Health Maintenance Due Date Last Done Comments [...] Declined After Education) Depression Screening 11/08/2025 11/08/2024, 07/23/20 24 O2 ASSESSMENT COMPLETED IN PAST YEAR [...] type (HCC)- Primary documented in this encounter Additional Health [...] Trejo Spouse Health Care Agent Care Teams Carbonating Stone Cleaner Relationship Specialty Start Date End Date Suman Simpson MD PCP - General 01/26/03 documented as of this encounter
--- OUTSIDE RECORDS SUMMARY | 2024-12-22 00:15 | External Medical Summary ---
Author Name Unknown Address Unknown Organization K01:[facility] [address] [place] [address] Laboratory Report Ordering Provider Test Date Status BRITANY PADILLA 12/01/2024 12:43:07 Final Observation Date Value Abnormality Reference (Units) Status Source 12/01/2024 12:43:07 Semi-formed Final Clostridioides difficile toxin and [id number] strain DNA panel - Stool by LORRI with probe detection 12/01/2024 12:43:07 Negative. No C. difficile toxin B gene DNA detected by PCR (Amplified Probe). Negative Final Performing Location [facility] [place] [address] [place] [address]
--- OUTSIDE RECORDS SUMMARY | 2024-12-22 00:15 | External Medical Summary | Summary of Care ---
Author Name Unknown Organization [facility] Address [address] [place] [address] Phone [phone] Care Team Providers Care Backside Grinder Name Role Phone Suman Simpson MD Primary Care Provider +1- [phone] Reason for Visit * Reason Onset Date Comments Fall 11/28/2024 Encounter Details Date Type Department Care Team (Late st Contact Info) Description 11/28/2024 Telephone [facility] [place] [address] [place] [address] Suman Simpson MD [address] [place] [address] Fall Allergies Active Allergy Reactions Criticality Noted Date [...] of less than 8.0% ([facility]) Use up to 4 times a [...] not on chronic dialysis ([facility]) Take 2 tablets in AM and [...] by GOLD 2017 classification ([facility]) Take 1 Capsule by mouth 3 times a day as needed for Cough. 30 Capsule 1 08/23/20 24 Active Vitamin D3 25 MCG (1000 UT) Oral Tablet (Vitamin D3) Take 1 Tablet by mouth in the morning. 30 Tablet 5 08/24/20 24 Active Breo Ellipta 100-25 MCG/ACT Inhalation Aerosol Powder Breath ActivatedIndicati ons:COPD, group B, by GOLD 2017 classification ([facility]) Inhale 1 Puff by mouth in [...] of less than 8.0% ([facility]) Take 1 Tablet by mouth in [...] by GOLD 2017 classification ([facility]),Dyspnea and respiratory abnormalities 2.5 mg NEBULIZER PRN 08/29/2024 08/29/2025 Active Albuterol Sulfate (Proventil) (2.5 MG/3ML) 0.083% inhalation solution 2.5 mgIndications:COPD, group B, by GOLD 2017 classification ([facility]),Dyspnea and respiratory abnormalities 2.5 mg NEBULIZER [...] Assessment & Plan (01/09/2022 2:18 PM EST): [facility] Triage Call: Reviewed case w/ [...] stage renal disease 01/27/2023 08/24/2023 Atherosclerosis of [place] 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 09/13/2021 [...] mRNA, LNP-s, No Pre serve, 2-Dose Series ([employer]) 10/20/2021,02/28/2021,02/07/2021 COVID-19, MRNA-LNP, PF, 30 M CG/0.3 mL, 12 YRS AND ABOVE, IM ([facility]) 10/13/2023 Covid-19, Mrna, Lnp-s, Pf, [...] encounter Miscellaneous Notes * Telephone Encounter - Vivian Cruz OSA - 12/01/2024 9:23 AM EST Reason for patient's call: pt's daughter calling regarding fall, concerned pt needs xray Caller was transferred to [facility] at the nurse line. * Telephone Encounter - Lissy [place] LPN - 11/28/2024 12:49 PM EST Notified by CHW that patient had fall today CHW directed to be evaluated at ED but patient was refusing ASSESSMENT: Phone call to residence Initially spoke to daughter, Marylou and then also spouse, Latia and then patient himself Fall today around 11:00 am Was getting placed on BSC and commode tilted over. Patient landed on L shoulder and L side/rib area Currently having L shoulder pain and L rib pain Denies any hip, pelvic or abdominal pain Patient states did not hit head. He is currently on Warfarin Family denies any current AMS/confusion He is normally able to stand and transfer to chair per his baseline He is currently sitting in recliner. They were able to get him off the floor by way of sheet They are planning to try to get him to stand soon to see how he does RECOMMENDATION: Update from daughter and spouse Spoke to patient Explained concern of fall with being on blood thinning medications He adamantly is refusing ED evaluation Explained risk of bleeding with trauma/falls He continues to refuses despite verbalizing understanding I have encourage daughter and spouse of same. They stated they will continue to try to encourage ED eval I will make PCP aware of this and recommendations made documented in this encounter Plan of Treatment Upcoming Encounters Date Type Department Care Team (Late st Contact Info) Description 12/02/2024 2:30 PM EST Office Visit Interventional Pain Center, [facility] [address] [facility] [place] [address] Isis Mcrae PA-C 132 [facility] [place] [address] 12/15/2024 3:20 PM EST Anticoagulation Pharmacy, [facility] [phone] [facility] [address] [place] [address] [place] [address] 12/22/2024 3:00 PM EST Office Visit Cardiology, [facility] [address] [facility] [place] [address] Rosetta Velasco CRNP 400 [facility] [place] [address] 03/13/2025 3:00 PM EDT Office [address]phrology, [address] [address] David Jaramillo MD 200 [facility] [place] [address] 04/04/2025 2:40 PM EDT [facility] 226 [facility] [place] [address] Suman Simpson MD 226 [place] [address] 04/26/2025 3:00 PM EDT Office Visit Pulmonary Medicine, [facility] [address] [place] [address] Bradley Yepez MD [address] [place] [address] Health Maintenance Due Date Last Done Comments [...] Agents on File Name Relationship Healthcare Agent [facility] p Communication Latia Robles Ficlesliederrick Spouse Health Care Agent Care Teams Backside Grinder Relationship Specialty Start Date End Date Suman Simpson MD PCP - General 01/26/03 documented as of this encounter
--- OUTSIDE RECORDS SUMMARY | 2024-12-22 00:15 | External Medical Summary | Summary of Care ---
Author Name Unknown Organization [facility] Address [address] [place] [address] Phone [phone] Care Team Providers Care Student Financial Aid Manager Name Role Phone Suman Simpson MD Primary Care Provider +1- [phone] Encounter Details Date Type Department Care Team (Late st Contact Info) Description 11/29/2024 12:30 PM EST Scheduled Telephone Care Coordination and Integration [address] [place], [place] [id number] Yamilet Florence [facility] Health Distribution Agent [address] [place] [address] Allergies Active Allergy Reactions Criticality Noted Date Comments Metolazone 07/29/2021 Severe HYponatremia Morphine Sulfate Other (Please comment) 006 hallucinate Oxycodone Other (Please comment) 07/07/2006 Hallucinate Penicillins 07/21/2011 Hallucinate documented as of this encounter (statuses as of 11/29/2024) Medications VITAMIN C 500 MG PO TABS [...] hemoglobin A1c goal of less than 8.0% ([facility]) Use up to 4 times [...] chronic kidney disease not on chronic dialysis ([facility]) Take 2 tablets in AM [...] s:COPD, group B, by GOLD 2017 classification ([facility]) Take 1 Capsule by mouth 3 times a day as needed for Cough. 30 Capsule 1 08/23/20 24 Active Vitamin D3 25 MCG (1000 UT) Oral Tablet (Vitamin D3) Take 1 Tablet by mouth in the morning. 30 Tablet 5 08/24/20 24 Active Breo Ellipta 100-25 MCG/ACT Inhalation Aerosol Powder Breath ActivatedIndicati ons:COPD, group B, by GOLD 2017 classification ([facility]) Inhale 1 Puff by mouth [...] hemoglobin A1c goal of less than 8.0% ([facility]) Take 1 Tablet by mouth [...] mgIndications:COPD, group B, by GOLD 2017 classification ([facility]),Dyspnea and respiratory abnormalities 2.5 mg NEBULIZER PRN 08/29/2024 08/29/2025 Active Albuterol Sulfate (Proventil) (2.5 MG/3ML) 0.083% inhalation solution 2.5 mgIndications:COPD, group B, by GOLD 2017 classification ([facility]),Dyspnea and respiratory abnormalities 2.5 mg NEBULIZER PRN 08/29/2024 08/29/2025 Active documented as of this encounter (statuses as of 11/29/2024) Active Problems Problem Noted Date Diagnosed Date [...] Plan (01/09/2022 2:18 PM EST): [facility] Triage Call: Reviewed case w/ Dr Jaramillo [...] as of this encounter (statuses as of 11/29/2024) Resolved Problems Problem Noted Date Diagnosed Date Resolved Date Hypertensive chronic kidney disease with stage 5 chronic kidney disease or end stage renal disease 01/27/2023 08/24/2023 Atherosclerosis of [place] 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 [...] as of this encounter (statuses as of 11/29/2024) Immunizations Name Administration Dates Next Due COVID-19 mRNA, LNP-s, No Pre serve, 2-Dose Series ([facility]) 10/20/2021,02/28/2021,02/07/2021 COVID-19, MRNA-LNP, PF, 30 M CG/0.3 mL, 12 YRS AND ABOVE, IM ([employer]) [...] documented in this encounter Progress Notes * Lissy [place] LPN - 11/29/2024 1:35 PM EST Noted Scheduled for [facility] f/u later this week * Yamilet Florence Community Health Distribution Agent - 11/29/2024 12:37 PM EST Telemedicine visit: No Community Health Distribution Agent (KORY) documentation: CHW shaggy call per ARI Stevenson CHW spoke with pt this date to complete shaggy call and follow up from yesterday's call that CHW had made only to find that pt had just had a fall. CHW questioned pt about his shoulder and he stated it still is hurting, but he didn't go to the ED.He stated if it doesn't get better or gets worse he will go to the ED. CHW originally was to have a cold visit with pt this date due to [facility] x 3 for his shaggy calls. CHW did ask pt about a CHW visit, however, he didn't feel it necessary. CHW asked about the pt's leg wounds and he stated they are scabbed over, no drainage, no redness, swelling or warmth. He stated his daughter cleanses and puts cream on them daily. He stated he had some home health but they have not been coming recently. He isn't sure why. CHW stressed to pt to call if he has any questions or concerns and if he has new or worsening symptoms from his fall he should go to the ED. Pt was in agreement. documented in this encounter Plan of Treatment Upcoming Encounters Date Type Department Care Team (Late st Contact Info) Description 12/02/2024 2:30 PM EST Office Visit Interventional Pain Center, [facility] [place] [address] Isis Mcrae PA-C [facility] [address] 12/15/2024 3:20 PM EST Anticoagulation Pharmacy, [facility] [address] [place] [phone] [place], [facility] [address] [place] [address] 12/22/2024 3:00 PM EST Office Visit Cardiology, [facility] 132 [facility] [place] [address] Rosetta Velasco CRNP 400 [facility] [place] [address] 03/13/2025 3:00 PM EDT Office Visit Nephrology, [facility] [place] [address] [place] [address] David Jaramillo MD [address] [place] [address] 04/04/2025 2:40 PM EDT Office [facility] [address] [place] [address] Suman Simpson MD [address] [place] [address] 04/26/2025 3:00 PM EDT Office Visit Pulmonary Medicine, [facility] [address] [place] [address] Bradley Yepez MD [address] [facility] [place] [address] Health Maintenance Due Date Last Done Comments [...] File Name Relationship Healthcare Agent [facility] karthik Communication Latia Trejo Spouse Health Care Agent Care Teams Student Financial Aid Manager Relationship Specialty Start Date End Date Suman Simpson MD PCP - General 01/26/03 documented as of this encounter
--- OUTSIDE RECORDS SUMMARY | 2024-12-22 00:15 | External Medical Summary | Summary of Care ---
Author Name Unknown Organization [facility] Address [address] [place] [address] Phone [phone] Care Team Providers Care Technical Writing Lead/Mgr Name Role Phone Suman Simpson MD Primary Care Provider +1- [phone] Reason for Visit * Reason Comments Outpatient Testing Encounter Details Date Type Department Care Team (Late st Contact Info) Description 12/01/2024 12:50 PM EST Laboratory Laboratory, [facility] [address] [place] [address] St, Specimen Drop Off [place] [address] [place] [address] Diarrhea, unspecified type Allergies Active Allergy Reactions Criticality Noted Date [...] A1c goal of less than 8.0% ([facility]) Use up to 4 times a [...] kidney disease not on chronic dialysis ([facility]) Take 2 tablets in AM and [...] group B, by GOLD 2017 classification ([facility]) Take 1 Capsule by mouth 3 times a day as needed for Cough. 30 Capsule 1 08/23/20 24 Active Vitamin D3 25 MCG (1000 UT) Oral Tablet (Vitamin D3) Take 1 Tablet by mouth in the morning. 30 Tablet 5 08/24/20 24 Active Breo Ellipta 100-25 MCG/ACT Inhalation Aerosol Powder Breath ActivatedIndicati ons:COPD, group B, by GOLD 2017 classification ([facility]) Inhale 1 Puff by mouth in [...] A1c goal of less than 8.0% ([facility]) Take 1 Tablet by mouth in [...] group B, by GOLD 2017 classification ([facility]),Dyspnea and respiratory abnormalities 2.5 mg NEBULIZER PRN 08/29/2024 08/29/2025 Active Albuterol Sulfate (Proventil) (2.5 MG/3ML) 0.083% inhalation solution 2.5 mgIndications:COPD, group B, by GOLD 2017 classification ([facility]),Dyspnea and respiratory abnormalities 2.5 mg NEBULIZER [...] Assessment & Plan (01/09/2022 2:18 PM EST): [facility] Triage Call: Reviewed case w/ Dr [...] stage renal disease 01/27/2023 08/24/2023 Atherosclerosis of [place] 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 09/13/2021 [...] mRNA, LNP-s, No Pre serve, 2-Dose Series ([employer]) 10/20/2021,02/28/2021,02/07/2021 COVID-19, MRNA-LNP, PF, 30 M CG/0.3 mL, 12 YRS AND ABOVE, IM ([facility] 10/13/2023 Covid-19, Mrna, Lnp-s, Pf, [...] Sree Cunningham RN documented in this encounter Plan of Treatment Upcoming Encounters Date Type Department Care Team (Late st Contact Info) Description 12/02/2024 2:30 PM EST Office Visit Interventional Pain Center, [facility] 132 [facility] [place] [address] Isis Mcrae PA-C 132 [facility] [place] [address] 12/15/2024 3:20 PM EST Anticoagulation Pharmacy, [facility] [address] [facility] [place] [phone] [place] [address] 12/22/2024 3:00 PM EST Office Visit Cardiology, [facility] 132 [facility] [place] [address] Rosetta Velasco CRNP 400 [place] [address] 03/13/2025 3:00 PM EDT Office Visit Nephrology, [facility] [address] [place] [address] David Jaramillo MD [address] [place] [address] 04/04/2025 2:40 PM EDT Office Visit Family Practice, [facility] 226 [place] [phone] Suman Simpson MD [address] [place] [address] 04/26/2025 3:00 PM EDT Office Visit Pulmonary Medicine, [facility] 132 [facility] [place] [address] Bradley Ypeez MD [address] [facility] [address] Pending Results Name Type Priority Associated Diagnoses Date /Time CLOSTRIDIUM DIFFICILE, PCR Lab Routine Diarrhea, unspecified type 12/01/2024 12:43 PM EST Health Maintenance Due Date Last [...] Esophageal reflux Atrial fibrillation, unspecified type (HCC) Diarrhea, unspecified type documented in this encounter Additional Health Concerns [...] Trejo Spouse Health Care Agent Care Teams Technical Writing Lead/Mgr Relationship Specialty Start Date End Date Suman Simpson MD PCP - General 01/26/03 documented as of this encounter
--- OUTSIDE RECORDS SUMMARY | 2024-12-22 00:15 | External Medical Summary | Summary of Care ---
Author Name Unknown Organization [facility] Address [address] [place] [address] Phone [phone] Care Team Providers Care Baggage Handling Supervisor Name Role Phone Suman Simpson MD Primary Care Provider +1- [phone] Reason for Visit * Reason Onset Date Comments Fall 11/28/2024 Encounter Details Date Type Department Care Team (Late st Contact Info) Description 11/28/2024 Telephone [facility] [address] [place] [address] Suman Simpson MD [address] [place] [address] Fall Allergies Active Allergy Reactions [...] hemoglobin A1c goal of less than 8.0% ([facility]) Use up to 4 times a [...] chronic kidney disease not on chronic dialysis ([facility]) Take 2 tablets in AM and [...] s:COPD, group B, by GOLD 2017 classification ([facility]) Take 1 Capsule by mouth 3 times a day as needed for Cough. 30 Capsule 1 08/23/20 24 Active Vitamin D3 25 MCG (1000 UT) Oral Tablet (Vitamin D3) Take 1 Tablet by mouth in the morning. 30 Tablet 5 08/24/20 24 Active Breo Ellipta 100-25 MCG/ACT Inhalation Aerosol Powder Breath ActivatedIndicati ons:COPD, group B, by GOLD 2017 classification ([facility]) Inhale 1 Puff by mouth in [...] hemoglobin A1c goal of less than 8.0% ([facility]) Take 1 Tablet by mouth in [...] mgIndications:COPD, group B, by GOLD 2017 classification ([facility]),Dyspnea and respiratory abnormalities 2.5 mg NEBULIZER PRN 08/29/2024 08/29/2025 Active Albuterol Sulfate (Proventil) (2.5 MG/3ML) 0.083% inhalation solution 2.5 mgIndications:COPD, group B, by GOLD 2017 classification ([facility]),Dyspnea and respiratory abnormalities 2.5 mg NEBULIZER [...] stage renal disease 01/27/2023 08/24/2023 Atherosclerosis of [place] 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 09/13/2021 [...] mRNA, LNP-s, No Pre serve, 2-Dose Series ([employer]) 10/20/2021,02/28/2021,02/07/2021 COVID-19, MRNA-LNP, PF, 30 M CG/0.3 mL, 12 YRS AND ABOVE, IM ([facility]) 10/13/2023 Covid-19, Mrna, Lnp-s, Pf, [...] No 02/09/2019 3:39 PM EDSree Bruno RN * Do you have serious difficulty [...] Telephone Encounter - Basia Welch LPN - 12/01/2024 9:26 AM EST Daughter, Jennifer calling. Her dad fell on Thursday. He is having pain in his left arm, and shoulder. It is swollen from his shoulder to his hand. He is refusing to go to the Er. There are no appointments today at [facility], or [facility] She will take him to the ortho walk in clinic at [facility]. * Telephone Encounter - Vivian Cruz OSA - 12/01/2024 9:23 AM EST Reason for patient's call: pt's daughter calling regarding fall, concerned pt needs xray Caller was transferred to [facility] at the nurse line. * Telephone Encounter [...] Pain Center, [facility] [address] [place] [address] Isis Mcrae PA-C [address] [place] [address] 12/15/2024 3:20 PM EST [facility], [facility] [address] [place] [phone] [place] [address] 12/22/2024 3:00 PM EST Office Visit Cardiology, [facility] 132 [facility] [address] Rosetta Velasco CRNP [address] [place] [address] 03/13/2025 3:00 PM EDT Office Visit Nephrology, [facility] 200 [facility] [place], [place] [address] David Jaramillo MD 200 [facility] [place] [address] 04/04/2025 2:40 PM EDT Office Visit Family Practice, [facility] 226 [facility] [phone] Suman Simpson MD 226 [place] [address] 04/26/2025 3:00 PM EDT Office Visit Pulmonary Medicine, [facility] 132 [facility] [place] [address] Bradley Yepez MD [address] [facility] [place] [address] Health Maintenance Due Date Last Done Comments [...] Name Relationship Healthcare Agent [facility] p Communication Latia Trejo Spouse Health Care Agent Care Teams Baggage Handling Supervisor Relationship Specialty Start Date End Date Suman Simpson MD PCP - General 01/26/03 documented as of this encounter
--- OUTSIDE RECORDS SUMMARY | 2024-12-22 00:15 | External Medical Summary | Summary of Care ---
Author Name Unknown Organization [facility] Address [address] [place] [address] Phone [phone] Care Team Providers Care Brand Attendant Name Role Phone Suman Simpson MD Primary Care Provider +1- [phone] Reason for Referral * Evaluate & Treat - Unlimited Visits (Within 10 days (routine)) - Authorized Specialty Diagnoses / Procedures Referred By Tong bellamy Referred To Contact Wound Care Diagnoses Multiple opens wound of lower extremity, unspecified laterality, initial encounter Suman Simpson MD [address] [place] [address] Phone: tel: fax: Referral ID Status Reason Start Date Expiration Date Visits Requested Visits Authorized [id number] Authorized Specialty Services Required 4 [phone] Question Answer Referral Priority Within 10 days (routine) Where should this appointment be scheduled? [facility] Where is the wound? Below the knee Comments Assess for: assistance with healing of bilateral lower ext wounds Reason for Visit * Reason Onset Date Comments Hospital Follow-Up Hospital foll ow up, patient admitted 11/03-11/06 for infection of L foot. Pt states that doxycycline and amoxicillin are causing him issues when it comes to the bathroom. Reports not taking any today and is fine. Would also like to discuss probiotic effects. Hospital Follow-Up 11/29/2024 Encounter Details Date Type Department Care Team (Late st Contact Info) Description 11/11/2024 2:00 PM EST [facility] [address] [address] Suman Simpson MD [address] [address] Cellulitis of toe of left foot*; Multiple opens wound of lower extremity, unspecified laterality, initial encounter; Hospital discharge follow-up Allergies Active Allergy Reactions Criticality Noted Date [...] BREAKFAST OR OTHER MEDICATIONS 90 Tablet 3 03/07/20 24 Active Losartan Potassium 25 MG Oral Tablet (Cozaar) Take 1 Tablet by mouth in the morning. 90 Tablet 03/07/20 24 Active OneTouch Verio In Vitro Strip (Glucose Blood)Indications :Type 2 diabetes mellitus with hemoglobin A1c goal of less than 8.0% ([facility]) Use up to 4 times a day [...] disease not on chronic dialysis ([facility]) Take 2 tablets in AM and [...] B, by GOLD 2017 classification ([facility]) Take 1 Capsule by mouth 3 times a day as needed for Cough. 30 Capsule 1 08/23/20 24 Active Vitamin D3 25 MCG (1000 UT) Oral Tablet (Vitamin D3) Take 1 Tablet by mouth in the morning. 30 Tablet 5 08/24/20 24 Active Breo Ellipta 100-25 MCG/ACT Inhalation Aerosol Powder Breath ActivatedIndicati ons:COPD, group B, by GOLD 2017 classification ([facility]) Inhale 1 Puff by mouth in [...] goal of less than 8.0% ([facility]) Take 1 Tablet by mouth in the [...] 2 times a day. 11/06/20 24 Active Albuterol Sulfate 0.63 MG/3ML Inhalation Nebulization Solution (Accuneb) Inhale 1 Vial via nebulizer every 6 hours as needed for Wheezing or Shortness of Breath. 360 mL 10/24/20 24 2023 Additional Information Patient not taking.Reported on 11/11/2024 Cephalexin 500 MG Oral Capsule (Keflex) Take 1 Capsule by mouth in the morning and 1 Capsule before bedtime. Do all this for 10 days. 20 Capsule 11/11/20 24 2023 Hospital, Clinic, or Other Facility Administered Medication Ordered Dose Route Frequency Start Date End Date Status Albuterol Sulfate (Proventil) (5 MG/ML) 0.5% *conc* inhalation solution 2.5 mgIndications:COPD, group B, by GOLD 2017 classification ([facility]),Dyspnea and respiratory abnormalities 2.5 mg NEBULIZER PRN 08/29/2024 08/29/2025 Active Albuterol Sulfate (Proventil) (2.5 MG/3ML) 0.083% inhalation solution 2.5 mgIndications:COPD, group B, by GOLD 2017 classification ([facility]),Dyspnea and respiratory abnormalities 2.5 mg NEBULIZER PRN [...] Assessment & Plan (01/09/2022 2:18 PM EST): [facility] Triage Call: Reviewed case w/ Dr aJramillo - pt clearly sounds volume overloaded despite [...] renal disease 01/27/2023 08/24/2023 Atherosclerosis of [place] 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 09/13/2021 [...] mRNA, LNP-s, No Pre serve, 2-Dose Series ([employer]) 10/20/2021,02/28/2021,02/07/2021 COVID-19, MRNA-LNP, PF, 30 M CG/0.3 mL, 12 YRS AND ABOVE, IM ([facility]) 10/13/2023 Covid-19, Mrna, Lnp-s, Pf, B ivalent, 30 Mcg, IM, 12 yrs and above ([employer]) 09/12/2022 HEPATITIS B VACCINE, RECOMB, 20 MCG/ML, [...] Sign Reading Time Taken Comments Blood Pressure 150/82 11/11/2024 1:57 PM EST Pulse 56 11/11/2024 1:57 PM EST Temperature 35.9 C (96.6 F) 11/11/2024 1:57 PM ES T Respiratory Rate 16 11/11/2024 1:57 PM EST Oxygen Saturation 94% 11/11/2024 1:57 PM EST Inhaled Oxygen Concentration - - Weight 100.7 kg (222 lb 1.6 oz) 11/11/2024 1:57 PM EST Height 163.8 cm (5' 4.5") 11/11/2024 1:57 PM EST Body Mass Index 37.53 11/11/2024 1:57 PM EST documented in this encounter Functional [...] documented in this encounter Progress Notes * Suman Simpson MD - 11/29/2024 5:36 PM EST Subjective: Tre Trejo is a 84 year old male here today for Chief Complaint Patient presents with Hospital Follow-Up Hospital follow up, patient admitted 11/03-11/06 for infection of L foot. Pt states that doxycycline and amoxicillin are causing him issues when it comes to the bathroom. Reports not taking any today and is fine. Would also like to discuss probiotic effects. Hospital Follow-Up Patient presents for hospital follow up. Admitted to [facility] 11/03/24 - 11/06/24 for left 4th toe erythema, edema, pain. MRI did not show evidence for osteomyelitis. He was seen by podiatry. Plan is for treatment with 2 weeks of abx. He is doing better. No acute complaints today. Past Medical History: Diagnosis Date Allergic [...] SACRAL NERVE IMAGING SINGLE performed by Maurisio Jeromy Mike, DO at OR [facility] GRAFT EAR CARTILAGE TO NOSE/EAR N/A 02/09/2019 GRAFT EAR CARTILAGE TO EAR OR NOSE performed by Amanda Marcelino MD at OR [facility] INFORMATION 1988 ear surg, nerve cut dysequilibrium left [facility] INFORMATION amputation tip rt index finger, accident INFORMATION back surgery INJECT DX/THER SUBSTANCE INTERLAMINAR LUMBAR/SACRAL W IMAGE GUIDE 06/27/2019 INJECTION SPINE LUMBAR OR SACRAL performed by Reasnor Jeromy Mike, DO at OR [facility] INJECT DX/THER SUBSTANCE INTERLAMINAR LUMBAR/SACRAL W IMAGE GUIDE 07/14/2019 INJECTION SPINE LUMBAR OR SACRAL performed by Reasnor Jeromy Mike, DO at OR [facility] KNEE ARTHROSCOPY, DIAGNOSTIC Knee Arthroscopy right Dr Wang L-/S-SPINE PARAVERTEBRAL FACET INJ,1 LEVEL 08/18/2019 L-/S-SPINE PARAVERTEBRAL FACET INJ, 1 LEVEL performed by Maurisio Jeromy Mike, DO at OR [facility] L-/S-SPINE PARAVERTEBRAL FACET INJ,1 LEVEL 09/05/2019 L-/S-SPINE PARAVERTEBRAL FACET INJ, 1 LEVEL performed by Maurisio Mike DO at [facility] NASAL SEPTUM CARTILAGE FOR GRAFT N/A 02/09/2019 OBTAIN CARTILAGE GRAFT NASAL SEPTUM performed by Amanda Marcelino MD at OR [facility] RECONSTRUCTION OF NOSE/SEPTUM N/A 02/09/2019 RHINOPLASTY COMPLETE INCLUDING MAJOR SEPTAL REPAIR performed by Amanda Marcelino MD at OR [facility] REMOVE CATARACT, INSERT LENS PROSTH Bilateral 2017 Dr Vinson REMOVE NECK SPINE LAMINA, 1-2 SEGS Cervical Laminectomy [facility] [place] REMOVE RIB CARTILAGE FOR GRAFT N/A 02/09/2019 OBTAIN CARTILAGE GRAFT COSTOCHONDRAL performed by Amanda Marcelino MD at OR [facility] REMOVE TONSILS & ADENOIDS, UNDER 12 Tonsillectomy/Adenoids,<12 Y/O REPAIR INGUINAL HERNIA, UNDER AGE 5 Inguinal Hernia Repair,6mo-5yr,Reduc REPAIR RUPTURED ROTATOR CUFF, CHRON Rotator Repair Cuff,Chronic left REVISION OF PALATE, PHARYNX/UVULA 03/28/2014 PALATOPHARYNGOPLASTY performed by Too Medina MD at OR [facility] SMALL BOWEL ENDOSCOPY W/BX 06/07/2010 hiatal hernia bxs done--Barrettreyes repeat in one yr Review of patient's [...] to affected area daily. 85 g 1 Benzonatate 100 MG Oral Capsule Take 1 [...] MG Oral Capsule 2 times a day. MULTIVITAL PO TABS one tablet by mouth daily (Patient not taking: Reported on 11/08/2024) Polyethylene Glycol 3350 17 GM Oral Packet (Miralax) Take 1 Packet by mouth in the morning. (Patient not taking: Reported on 11/11/2024) 14 Each 3 Sennosides-Docusate Sodium 8.6-50 MG Oral Tablet (Senokot-S) Take 1 Tablet by mouth at bedtime as needed for Constipation. May increase to 2 as needed (Patient not taking: Reported on 11/11/2024) 30 Tablet 11 Ondansetron 4 MG Oral Tablet Disintegrating (Zofran) Place 1 Tablet on tongue every 8 hours as needed for Nausea. dissolve on tongue. (Patient not taking: Reported on 11/11/2024) 20 Tablet 0 Current Facility-Administered Medications Medication Dose Route Frequency Provider Last Rate Last Admin Albuterol Sulfate (Proventil) (5 MG/ML) 0.5% *conc* inhalation solution 2.5 mg 2.5 mg Nebulizer PRN Albuterol Sulfate (Proventil) (2.5 MG/3ML) 0.083% inhalation solution 2.5 mg 2.5 mg Nebulizer PRN 2.5 mg at 09/15/24 1151 Objective: BP 150/82 | Pulse 56 | Temp 96.6 F (35.9 C) (Tympanic) | Resp 16 | Ht 5' 4.5" (1.638m) | Wt 222 lb 1.6 oz (100.7 kg) | SpO2 94% | BMI 37.53 kg/m | BSA 2.14 m GEN: NAD HEENT: Benign NECK: Supple with no LAD, TM, JVD CHEST: CTA B CV: RRR ABD: Soft, NT/ND, No HSM, NABS EXT: No c,c,e Assessment and Plan: Cellulitis of toe of left foot (Primary) -complete course of abx. Follow up with wound care clinic. -call for new or worsening symptoms. Multiple opens wound of lower extremity, unspecified laterality, initial encounter - WOUND CARE REFERRAL OP Hospital discharge follow-up - DISCH MED RECON CUR MED LIS Other orders - Cephalexin 500 MG Oral Capsule (Keflex); Take 1 Capsule by mouth in the morning and 1 Capsule before bedtime. Do all this for 10 days. Check-out note: Set up with [facility] Suman Simpson MD documented in this encounter Nursing Notes * Linda Yousif MED ASSIST - 11/11/2024 2:04 PM EST The patient has been properly identified by confirmation of name and date of . Chief Complaint Patient presents with Hospital Follow-Up Hospital follow up, patient admitted 11/03-11/06 for infection of L foot. Pt states that doxycycline and amoxicillin are causing him issues when it comes to the bathroom. Reports not taking any today and is fine. Would also like to discuss probiotic effects. documented in this encounter Plan of Treatment Upcoming Encounters Date Type Department Care Team (Late st Contact Info) Description 12/02/2024 2:30 PM EST Office Visit Interventional Pain Center, [facility] [address] [facility] [place] [address] Isis Mcrae PA-C [address] [facility] [place] [address] 12/15/2024 3:20 PM EST [facility]ticoagulation Pharmacy, [facility] [phone] [place], [facility] [address] [place] [address] 12/22/2024 3:00 PM EST Office Visit Cardiology, [facility] [address] [facility] [place] [address] Rosetta Velasco CRNP [address] [facility] [place] [address] 03/13/2025 3:00 PM EDT Office Visit Nephrology, [facility] [address] [place] [address] David Jaramillo MD [address] [place] [address] 04/04/2025 2:40 PM EDT Office [facility] [address] [address] Suman Simpson MD [address] [place] [address] 04/26/2025 3:00 PM EDT Office Visit Pulmonary Medicine, [facility] 132 [facility] [place] [address] Bradley Yepez MD [address] [facility] [place] [address] Scheduled Referrals Name Type Priority Associated Diagnoses Orde r Schedule WOUND CARE REFERRAL OP Referral Within 10 days (routine) Multiple opens wound of lower extremity, unspecified laterality, initial encounter Ordered: 11/11/2024 Health Maintenance Due Date Last Done Comments [...] Esophageal reflux Atrial fibrillation, unspecified type (HCC) Cellulitis of toe of left foot- Primary Cellulitis and abscess of toe, unspecified Multiple opens wound of lower extremity, unspecified laterality, initial encounter Hospital discharge follow-up Other follow-up examination documented in this encounter Advance Directives * [...] Agents on File Name Relationship Healthcare Agent [facility] Communication Latia Trejo Spouse Health Care Agent Care Teams Brand Attendant Relationship Specialty Start Date End Date Suman Simpson MD PCP - General 01/26/03 documented as of this encounter
--- OUTSIDE RECORDS SUMMARY | 2024-12-22 00:16 | External Medical Summary ---
Author Name Unknown Address Unknown Organization [id number]:[facility] - [facility] [address] [facility] [address] Laboratory Report Ordering Provider Test Date Status BRITANY PADILLA 11/24/2024 15:53:55 Final Observation Date Value Abnormality Reference (Units ) Status WBC, Total 11/24/2024 15:53:55 4.41 4.00-10.80 (K/uL) Final RBC 11/24/2024 15:53:55 4.10 4.50-5.25 (M/uL) Final Hemoglobin 11/24/2024 15:53:55 11.6 Below low normal 14.0-16.8 (g/dL) Final HCT 11/24/2024 15:53:55 39.6 Below low normal 40.0-48.4 (%) Final MCV 11/24/2024 15:53:55 96.6 82.0-99.5 (fL) Final MCH 11/24/2024 15:53:55 28.3 27.0-34.0 (pg) Final MCHC 11/24/2024 15:53:55 29.3 32.0-36.0 (g/dL) Final RDW 11/24/2024 15:53:55 18.4 11.5-15.5 (%) Final Platelets 11/24/2024 15:53:55 93 Below low normal 140-400 (K/uL) Final MPV 11/24/2024 15:53:55 13.2 6.6-11.1 (fL) Final Nucleated erythrocytes/100 leukocytes [Ratio] in Blood by Automated count 11/24/2024 15:53:55 0 <=0 (/100 WBCs) Final Performing Location [facility] - [address] [place] [address]
--- OUTSIDE RECORDS SUMMARY | 2024-12-22 00:16 | External Medical Summary | Summary of Care ---
Author Name Unknown Organization [facility] Address [address] [place] [address] Phone [phone] Care Team Providers Care Warehouse Driver Name Role Phone Suman Simpson MD Primary Care Provider +1- [phone] Encounter Details Date Type Department Care Team (Late st Contact Info) Description 11/29/2024 12:30 PM EST Scheduled Telephone Care Coordination and Integration [address] [place], [place] [phone] Yamilet Florence [facility] Health Production Control Planner [address] [place] [address] Allergies Active Allergy Reactions Criticality Noted Date [...] hemoglobin A1c goal of less than 8.0% ([facility]) Use up to 4 times a day [...] chronic kidney disease not on chronic dialysis ([facility]) Take 2 tablets in AM and 2 [...] s:COPD, group B, by GOLD 2017 classification ([facility]) Take 1 Capsule by mouth 3 times a day as needed for Cough. 30 Capsule 1 08/23/20 24 Active Vitamin D3 25 MCG (1000 UT) Oral Tablet (Vitamin D3) Take 1 Tablet by mouth in the morning. 30 Tablet 5 08/24/20 24 Active Breo Ellipta 100-25 MCG/ACT Inhalation Aerosol Powder Breath ActivatedIndicati ons:COPD, group B, by GOLD 2017 classification ([facility]) Inhale 1 Puff by mouth in the [...] hemoglobin A1c goal of less than 8.0% ([facility]) Take 1 Tablet by mouth in the [...] mgIndications:COPD, group B, by GOLD 2017 classification ([facility]),Dyspnea and respiratory abnormalities 2.5 mg NEBULIZER PRN 08/29/2024 08/29/2025 Active Albuterol Sulfate (Proventil) (2.5 MG/3ML) 0.083% inhalation solution 2.5 mgIndications:COPD, group B, by GOLD 2017 classification ([facility]),Dyspnea and respiratory abnormalities 2.5 mg NEBULIZER PRN [...] Assessment & Plan (01/09/2022 2:18 PM EST): [facility] Triage Call: Reviewed case w/ Dr Jaramillo [...] stage renal disease 01/27/2023 08/24/2023 Atherosclerosis of [place] 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 [...] mRNA, LNP-s, No Pre serve, 2-Dose Series ([employer]) 10/20/2021,02/28/2021,02/07/2021 COVID-19, MRNA-LNP, PF, 30 M CG/0.3 [...] No 11/08/2024 Does the household have a [facility] source of income? (Household - for ages [...] documented in this encounter Progress Notes * Yamilet [place], [facility] Production Control Planner - 11/29/2024 12:37 PM EST Telemedicine visit: No [facility] Health Production Control Planner (KORY) documentation: CHW shaggy call per ARI [...] visit with pt this date due to [facility] x 3 for his shaggy calls. CHW [...] Office Visit Interventional Pain Center, [facility] [address] [facility] [place] [address] Isis Mcrae PA-C [address] [facility] [place] [address] 12/15/2024 3:20 PM EST [facility] [address] [facility] [phone] [address] [address] 12/22/2024 3:00 PM EST Office Visit Cardiology, [facility] [address] [facility] [address] Rosetta Velasoc CRNP [address] [place] [address] [place] [address] 03/13/2025 3:00 PM EDT Office Visit Nephrology, [facility] [address] [place] [address] David Jaramillo MD [address] [place] [address] 04/04/2025 2:40 PM EDT Office Visit Family Practice, [facility] [address] [facility] [phone] Suman Simpson MD [address] [facility] [place] [address] 04/26/2025 3:00 PM EDT Office Visit Pulmonary Medicine, [facility] [address] [place] [address] Bradley Yepez MD [address] [phone] Health Maintenance Due Date Last Done Comments [...] Name Relationship Healthcare Agent [facility] p Communication Latia Trejo Spouse Health Care Agent Care Teams Warehouse Driver Relationship Specialty Start Date End Date Suman Simpson MD PCP - General 01/26/03 documented as of this encounter
--- OUTSIDE RECORDS SUMMARY | 2024-12-22 00:16 | External Medical Summary ---
Author Name Unknown Address Unknown Organization [id number]:[facility] - [facility] [address] [place] [address] Laboratory Report Ordering Provider Test Date Status BRITANY PADILLA 11/24/2024 15:53:55 Final Observation Date Value Abnormality Reference (Units ) Status BUN 11/24/2024 15:53:55 67 Above high normal 6-20 (mg/dL) Final Creatinine 11/24/2024 15:53:55 3.4 Above high normal 0.6-1.2 (mg/dL) Final Glomerular filtration rate/1.73 sq M.predicted [Volume Rate/Area] in Serum, Plasma or Blood by Creatinine-based formula (CKD-EPI) 11/24/2024 15:53:55 17 Below low normal >=60 (mL/min) Final eGFR is calculated based on the CKD-EPI 2020 equation. Sodium 11/24/2024 15:53:55 139 135-146 (m mol/L) Final Potassium 11/24/2024 15:53:55 4.0 3.5-5.1 (m mol/L) Final Cl 11/24/2024 15:53:55 101 98-107 (mm ol/L) Final CO2 11/24/2024 15:53:55 24 22-32 (mmo l/L) Final Anion gap 11/24/2024 15:53:55 14 7-15 (mmol /L) Final Glucose 11/24/2024 15:53:55 194 Above high normal 70 -120 (mg/dL) Final Calcium 11/24/2024 15:53:55 9.5 8.4-10.2 ( mg/dL) Final Albumin 11/24/2024 15:53:55 4.1 3.8-5.0 (g /dL) Final Phosphate 11/24/2024 15:53:55 3.5 2.5-4.8 (m g/dL) Final Performing Location [facility] - [address] [facility] [address]
--- OUTSIDE RECORDS SUMMARY | 2024-12-22 00:16 | External Medical Summary ---
Author Name Unknown Address Unknown Organization : Laboratory Report Ordering Provider Test Date Status LAURA BRANNON 11/24/2024 15:34:59 Final Therapeutic ranges for non-o perative patients:
Prophylaxsis/treatment of DVT: (Range:2.0-3.0)
Treatment of pulmonary embolism:(Range:2.0-3.0)
Prevention of systemic embolism from:
-tissue heart valves
-acute myocardial infarction
-valvular heart disease
-atrial fibrillation
(Range: 2.0-3.0)
Mechanical prosthetic valves: (Range: 2.5-3.5) Observation Date Value Abnormality Reference (Units ) Status INR in Capillary blood by Coagulation assay 11/24/2024 15:34:59 1.5 (INR) Final Performing Location
--- OUTSIDE RECORDS SUMMARY | 2024-12-22 00:16 | External Medical Summary | Summary of Care ---
Author Name Unknown Organization [facility] Address [address] [place] [address] Phone [phone] Care Team Providers Care Field Observer Name Role Phone Suman Simpson MD Primary Care Provider +1- [phone] Reason for Visit * Reason Comments Dosage Adjustment In Person (Anticoag Cl inic) Encounter Details Date Type Department Care Team (Latest Contact Info) Description 11/24/2024 3:20 PM EST Anticoagulation Pharmacy, [facility] [address] [place] [phone] [facility] [address] [place] [address] Anticoagulation management encounter*; Atrial fibrillation, unspecified type (HCC) Allergies Active Allergy Reactions Criticality Noted Date Comments Metolazone 07/29/2021 Severe HYponatremia Morphine Sulfate Other (Please comment) 006 hallucinate Oxycodone Other (Please comment) 07/07/2006 Hallucinate Penicillins 07/21/2011 Hallucinate documented as of this encounter (statuses as of 11/24/2024) Medications VITAMIN C 500 MG PO TABS [...] as of this encounter (statuses as of 11/24/2024) Active Problems Problem Noted Date Diagnosed Date [...] Assessment & Plan (01/09/2022 2:18 PM EST): [facility] Triage Call: Reviewed case w/ Dr [...] as of this encounter (statuses as of 11/24/2024) Resolved Problems Problem Noted Date Diagnosed Date Resolved Date Hypertensive chronic kidney disease with stage 5 chronic kidney disease or end stage renal disease 01/27/2023 08/24/2023 Atherosclerosis of [place] 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 Medication Therapy Disease Management - Anticoagulation Patient: Tre Trejo | : 1940 Subjective Patient-Reported Symptoms: Patient Findings Positives: Change in health (having diarrhea a lot lately), Change in diet/appetite (was drinking Boost but does not want to continue), Hospital admission (beginning of [facility] for foot infection) Negatives: Signs/symptoms of thrombosis, Signs/symptoms of bleeding, Change in alcohol use, Change in activity, Upcoming invasive procedure, Missed doses, Extra doses, Change in medications, Bruising Objective Current Warfarin Dose As of 11/24/2024 Warfarin maintenance plan: 5 mg (2.5 mg x 2) every Sun, Margi; 2.5 mg (2.5 mg x 1) all other days INR Result As of 11/24/2024 INR goal: 2.0-3.0 INR used for dosin.5 (11/24/2024) Assessment & Plan Warfarin Plan As of 11/24/2024 Full warfarin instructions: 11/24: 7.5 mg; Otherwise 5 mg every Sun, Marig; 2.5 mg all other days Next INR check: 12/15/2024 Repeat PT/INR in 3 week(s) Weekly dose: [...] time spent by another provider/QHP. Helen Boyer [facility] Clinical Pharmacist 11/24/2024, 3:32 PM documented in this encounter Plan of Treatment Upcoming Encounters Date Type Department Care Team (Late st Contact Info) Description 11/29/2024 4:00 PM EST Home Visit Care Coordination and Integration [address] [place] [address] Yamilet Florence [facility] Health Shoe Folder [address] [place] [address] 12/02/2024 2:30 PM EST Office Visit Interventional Pain Center, [facility] 132 [facility] [place] [address] Isis Mcrae PA-C 132 [facility] [place] [address] 12/15/2024 3:20 PM EST Anticoagulation Pharmacy, [place] 226 [facility] [place] [phone] Alex [address] [address] 12/22/2024 3:00 PM EST Office Visit Cardiology, [facility] 132 [facility] [place] [address] Rosetta Velasco CRNP 400 [facility] [address] 03/13/2025 3:00 PM EDT Office Visit Nephrology, [facility] 200 [facility] [place] [address] David Jaramillo MD 200 [facility] [place] [address] 04/04/2025 2:40 PM EDT Office Visit Family Practice, [facility] [address] [place] [address] Suman Simpson MD 226 [facility] [place] [address] 04/26/2025 3:00 PM EDT Office Visit Pulmonary Medicine, [facility] 132 [facility] [place] [address] Bradley Yepez MD [address] [facility] [address] Health Maintenance Due Date Last Done Comments [...] Comments INR FINGERSTICK, POINT OF CARE STAT 11/24/2024 3:34 PM EST Atrial fibrillation, unspecified type (HCC) Anticoagulation management encounter documented in this encounter Results * INR FINGERSTICK, POINT OF CARE (11/24/2024 3:34 PM EST) Fingerstick INR 1.5 INR 3:38 PM EST [facility] Blood 11/24/2024 3:34 PM EST 11/24/2024 3:38 PM EST Narrative [facility] - 11/24/2024 3:38 PM EST Therapeutic ranges for non-operative patients: Prophylaxsis/treatment of DVT: (Range:2.0-3.0) Treatment of pulmonary embolism:(Range:2.0-3.0) Prevention of systemic embolism from: -tissue heart valves -acute myocardial infarction -valvular heart disease -atrial fibrillation (Range: 2.0-3.0) Mechanical prosthetic valves: (Range: 2.5-3.5) Helen Boyer [facility] LAB POINT OF CARE TEST DOCKED DEVICE UNSOLICITED RESULTS Final Result [facility] [address] [place] [address], [facility] documented in this encounter Visit Diagnoses [...] Trejo Spouse Health Care Agent Care Teams Field Observer Relationship Specialty Start Date End Date Suman Simpson MD PCP - General 01/26/03 documented as of this encounter
--- OUTSIDE RECORDS SUMMARY | 2024-12-22 00:16 | External Medical Summary | Summary of Care ---
Author Name Unknown Organization [facility] Address [address] [place] [address] Phone [phone] Care Team Providers Care Tank Hoop Bender Name Role Phone Suman Simpson MD Primary Care Provider +1- [phone] Encounter Details Date Type Department Care Team (Late st Contact Info) Description 11/28/2024 11:30 AM EST Scheduled Telephone Care Coordination and Integration [address], [place] [phone] Yamilet Florence [facility] Direct Support Staff [address] [place] [address] Allergies Active Allergy Reactions Criticality Noted Date Comments Metolazone 07/29/2021 Severe HYponatremia Morphine Sulfate Other (Please comment) 006 hallucinate Oxycodone Other (Please comment) 07/07/2006 Hallucinate Penicillins 07/21/2011 Hallucinate documented as of this encounter (statuses as of 11/28/2024) Medications VITAMIN C 500 MG PO TABS [...] as of this encounter (statuses as of 11/28/2024) Active Problems Problem Noted Date Diagnosed Date [...] Assessment & Plan (01/09/2022 2:18 PM EST): [facility] Triage Call: Reviewed case w/ [...] as of this encounter (statuses as of 11/28/2024) Resolved Problems Problem Noted Date Diagnosed Date Resolved Date Hypertensive chronic kidney disease with stage 5 chronic kidney disease or end stage renal disease 01/27/2023 08/24/2023 Atherosclerosis of [place] 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 09/13/2021 [...] as of this encounter (statuses as of 11/28/2024) Immunizations Name Administration Dates Next Due COVID-19 mRNA, LNP-s, No Pre serve, 2-Dose Series ([employer]) 10/20/2021,02/28/2021,02/07/2021 COVID-19, MRNA-LNP, PF, 30 M CG/0.3 [...] 11/08/2024 Does the household have a [facility] hospital[facility] source of income? (Household - for [...] Progress Notes * Yamilet Florence, [facility] Direct Support Staff - 11/28/2024 2:09 PM EST Telemedicine visit: No Community Health Direct Support Staff (KORY) documentation: CHW scheduled for cold visit on due to UTC x3. CHW called pt to see if he was available and let him know that the CHW would be coming to see him. Pt's daughter answered the phone and his got on the phone. CHW explained that there was a homevisit scheduled for tomorrow and the spouse and pt both were against the CHW coming. The daughter spoke up and said that the pt had just had a fall at 11:00 a.m. this morning after the bedside commode tipped over during the transfer. CHW asked if pt was injured. Family stated he had injured his shoulder. CHW advised they should go to the ED to have the pt checked out. The pt was addiment about not going to the ED. CHW explained that she would reach out to the CM to see what her suggestion is. CHW spoke with ARI Hutchison and explained the pt had just had a fall and hurt his shoulder but was refusing to go to the ED. The CM stated she would call and speak to the patient, as she felt this was the only option, especially since the pt is on blood thinners. CM contacted the CHW and stated that the pt refused to go to the ED. documented in this encounter Plan of Treatment Upcoming Encounters Date Type Department Care Team (Late st Contact Info) Description 11/29/2024 4:00 PM EST Home Visit Care Coordination and Integration [address] [place] [facility] [place] [address] Yamilet Florence [facility] Direct Support Staff [address] [place] [facility] [place] [address] 12/02/2024 2:30 PM EST Office Visit Interventional Pain Center, [facility] 132 [facility] [place] [address] Isis Mcrae PA-C 132 [facility] [address] 12/15/2024 3:20 PM EST Anticoagulation Pharmacy, [facility] [address] [place] [phone] [place], [address] [address] 12/22/2024 3:00 PM EST Office Visit Cardiology, [facility] 132 [facility] [place] [address] Rosetta Velasco CRNP 400 [place] [address] 03/13/2025 3:00 PM EDT Office Visit Nephrology, [facility] [address] [place] [address] David Jaramillo MD [address] [place] [address] 04/04/2025 2:40 PM EDT Office Visit Family Practice, [place] Kasia Mcgarry [address] [place] [address] Suman Simpson MD [address] [place] [address] 04/26/2025 3:00 PM EDT Office Visit Pulmonary Medicine, [facility] 132 [facility] [place] [address] Bradley Yepez MD [address] [facility] [place] [address] Health Maintenance Due Date Last Done [...] [facility] Communication Latia Margaret Ignacioderrick Spouse Health Care Agent Care Teams Tank Hoop Bender Relationship Specialty Start Date End Date Suman Simpson MD PCP - General 01/26/03 documented as of this encounter
--- OUTSIDE RECORDS SUMMARY | 2024-12-22 00:16 | External Medical Summary ---
Author Name Unknown Address Unknown Organization K01:LABORATORY [facility] - [address] [place] [id number] Laboratory Report Ordering Provider Test Date Status BRITANY PADILLA 11/24/2024 15:53:55 Final Observation Date Value Abnormality Reference (Units ) Status Iron 11/24/2024 15:53:55 37 Below low normal 45-176 (ug/dL) Final Iron-binding capacity 11/24/2024 15:53:55 227 Below low normal 250-425 (ug/dL) Final Transferrin Sat % 11/24/2024 15:53:55 16 15-55 (%) Final Performing Location LAB[facility]ATORY [facility] - [address] [place] [id number]
--- OUTSIDE RECORDS SUMMARY | 2024-12-22 00:16 | External Medical Summary | Summary of Care ---
Author Name Unknown Organization [facility] Address [address] [place] [address] Phone [phone] Care Team Providers Care Poultry Farmer Egg Name Role Phone Suman Simpson MD Primary Care Provider +1- [phone] Reason for Visit * Reason Onset Date Comments Fall 11/28/2024 Encounter Details Date Type Department Care Team (Late st Contact Info) Description 11/28/2024 Telephone [facility] [address] [place] [address] Suman Simpson MD [address] [place] [address] Fall Allergies Active Allergy Reactions [...] than 8.0% ([facility]) Use up to 4 times a day [...] classification ([facility]) Take 1 Capsule by mouth 3 [...] than 8.0% ([facility]) Take 1 Tablet by mouth in the [...] 2017 classification ([facility]),Dyspnea and respiratory abnormalities 2.5 mg NEBULIZER PRN 08/29/2024 08/29/2025 Active Albuterol Sulfate (Proventil) (2.5 MG/3ML) 0.083% inhalation solution 2.5 mgIndications:COPD, group B, by GOLD 2017 classification ([facility]),Dyspnea and respiratory abnormalities 2.5 mg NEBULIZER [...] Assessment & Plan (01/09/2022 2:18 PM EST): [facility] Triage Call: Reviewed case w/ Dr [...] stage renal disease 01/27/2023 08/24/2023 Atherosclerosis of [place] 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 09/13/2021 [...] mRNA, LNP-s, No Pre serve, 2-Dose Series (Zulahoo) 10/20/2021,02/28/2021,02/07/2021 COVID-19, MRNA-LNP, PF, 30 M CG/0.3 mL, 12 YRS AND ABOVE, IM [facility]) 10/13/2023 Covid-19, Mrna, Lnp-s, Pf, B [...] 3:39 PM ASHISHT Sree Bishop RN * Because of a [...] encounter Miscellaneous Notes * Telephone Encounter - Lissy Jackson LPN [...] Visit Care Coordination and Integration [address] [place] [address] Yamilet Florence, Community Health Supervisor [employer]unglasses [address] [place] [address] 12/02/2024 2:30 PM EST Office Visit Interventional Pain Center, [facility] 132 [facility] [place] [address] Isis Mcrae PA-C 132 [facility] [place] [address] 12/15/2024 3:20 PM EST Anticoagulation Pharmacy, [facility] [address] [place] [phone] [facility] [address] [place] [address] 12/22/2024 3:00 PM EST Office Visit Cardiology, [facility] 132 [facility] [place] [address] Rosetta Velasco CRNP [address] [place] [address] 03/13/2025 3:00 PM EDT Office Visit Nephrology, [facility] [address] [place] [address] David Jaramillo MD [address] [place] [address] 04/04/2025 2:40 PM EDT Office Visit Family [facility] [address] [place] [address] Suman Simpson MD [address] [place] [address] 04/26/2025 3:00 PM EDT Office Visit Pulmonary Medicine, [facility] 132 [facility] [place] [address] Bradley Yepez MD [address] [place] [address] Health Maintenance Due Date Last Done Comments [...] Agents on File Name Relationship Healthcare Agent [facility] Communication Latia Margaret Ignacioderrick Spouse Health Care Agent Care Teams Poultry Farmer Egg Relationship Specialty Start Date End Date Suman Simposn MD PCP - General 01/26/03 documented as of this encounter
--- OUTSIDE RECORDS SUMMARY | 2024-12-22 00:16 | External Medical Summary | Summary of Care ---
Author Name Unknown Organization [facility] Address [address] [place] [address] Phone [phone] Care Team Providers Care Aerodynamic Consultant Name Role Phone Suman Simpson MD Primary Care Provider +1- [phone] Reason for Visit * Reason Onset Date Comments Test Results 08/24/2024 Encounter Details Date Type Department Care Team (Late st Contact Info) Description 08/24/2024 Telephone [facility] DEPT CLOSED - 11/17/[address] [place] [address] Suman Simpson MD [address] [place] [address] Test Results Allergies Active Allergy Reactions Criticality Noted Date Comments Metolazone 07/29/2021 Severe HYponatremia Morphine Sulfate Other (Please comment) 006 hallucinate Oxycodone Other (Please comment) 07/07/2006 Hallucinate Penicillins 07/21/2011 Hallucinate documented as of this encounter (statuses as of 11/23/2024) Medications VITAMIN C 500 MG PO TABS [...] morning. 90 Tablet 03/07/20 24 Active OneTouch Verkelsi In Vitro Strip (Glucose Blood)Indications :Type 2 diabetes mellitus with hemoglobin A1c goal of less than 8.0% ([facility]) Use up to 4 times a day [...] B, by GOLD 2017 classification ([facility]) Take 1 Capsule by mouth 3 times a day as needed for Cough. 30 Capsule 1 08/23/20 24 Active Vitamin D3 25 MCG (1000 UT) Oral Tablet (Vitamin D3) Take 1 Tablet by mouth in the morning. 30 Tablet 5 08/24/20 24 Active documented as of this encounter (statuses as of 11/23/2024) Active Problems Problem Noted Date Diagnosed Date [...] Assessment & Plan (01/09/2022 2:18 PM EST): [facility] Triage Call: Reviewed case w/ Dr [...] as of this encounter (statuses as of 11/23/2024) Resolved Problems Problem Noted Date Diagnosed Date Resolved Date Hypertensive chronic kidney disease with stage 5 chronic kidney disease or end stage renal disease 01/27/2023 08/24/2023 Atherosclerosis of [place] 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 09/13/2021 [...] as of this encounter (statuses as of 11/23/2024) Immunizations Name Administration Dates Next Due COVID-19 mRNA, LNP-s, No Pre serve, 2-Dose Series (Moasis) 10/20/2021,02/28/2021,02/07/2021 COVID-19, MRNA-LNP, PF, 30 M CG/0.3 mL, 12 YRS AND ABOVE, IM [facility]) 10/13/2023 Covid-19, Mrna, Lnp-s, Pf, [...] Sree Bishop RN documented in this encounter Miscellaneous Notes * Telephone Encounter - Basia Welch LPN - 08/24/2024 10:13 AM EDT Patient called. Informed of message. Verbalized understanding. Will comply. Will come in and get specimen container for stool * Telephone Encounter - Basia Welch LPN - 08/24/2024 9:35 AM EDT ----- Message from Greg Rodrigues MD sent at 08/24/2024 7:41 AM EDT ----- Lab work reviewed. Kidney function stable. Noted drop in hemoglobin from 12 to 10 in patient with history of GI bleed. Will add on iron studies to lab work yesterday. Recommend collecting fecal occult blood test to ensure no blood in the stool. Order has been placed. This can be picked up from the office. Still awaiting official read of chest xray. Greg Rodrigues MD documented in this encounter Plan of Treatment Upcoming Encounters Date Type Department Care Team (Late st Contact Info) Description 11/24/2024 3:20 PM EST Anticoagulation Pharmacy, [address] [place] [phone] [facility] [address] [place] [address] 11/29/2024 4:00 PM EST Home Visit Care Coordination and Integration [address] [place] [address] Yamilet Florence Community Health Database Administration Manager [address] [place] [address] 12/02/2024 2:30 PM EST Office Visit Interventional Pain Center, [facility] [address] [place] [address] Isis Mcrae PA-C [address] [place] [address] 12/22/2024 3:00 PM EST Office Visit Cardiology, [facility] [address] [place] [address] Rosetta Velasco CRNP [address] [place] [address] 03/13/2025 3:00 PM EDT Office Visit Nephrology, [facility] [address] [place] [address] David Jaramillo MD [address] [place] [address] 04/04/2025 2:40 PM EDT Office Visit Family Practice, [facility] [address] [place] [phone] Suman Simpson MD [address] [place] [address] 04/26/2025 3:00 PM EDT Office Visit Pulmonary Medicine, [facility] [address] [place] [address] Bradley Yepez MD [address] [facility] [place] [address] Health Maintenance Due Date Last Done Comments [...] Relationship Healthcare Agent Relationshi p Communication Latia Robles Ignacioderrick Spouse Health Care Agent Care Teams Aerodynamic Consultant Relationship Specialty Start Date End Date Suman Simpson MD PCP - General 01/26/03 documented as of this encounter
--- OUTSIDE RECORDS SUMMARY | 2024-12-22 00:16 | External Medical Summary | Summary of Care ---
Author Name Unknown Organization [facility] Address [address] [place] [address] Phone [phone] Care Team Providers Care Dinkey Operator Slag Name Role Phone Suman Simpson MD Primary Care Provider +1- [phone] Reason for Visit * Reason Onset Date Comments Other 11/18/2024 Encounter Details Date Type Department Care Team (Late st Contact Info) Description 11/18/2024 Telephone [facility] [address] [place] [address] Suman Simpson MD [address] [place] [address] Other Allergies Active Allergy Reactions Criticality Noted Date Comments Metolazone 07/29/2021 Severe HYponatremia Morphine Sulfate Other (Please comment) 006 hallucinate Oxycodone Other (Please comment) 07/07/2006 Hallucinate Penicillins 07/21/2011 Hallucinate documented as of this encounter (statuses as of 11/21/2024) Medications VITAMIN C 500 MG PO TABS [...] s:COPD, group B, by GOLD 2017 classification ([facility]) Take 1 Capsule by mouth [...] or Shortness of Breath. 360 mL 10/24/20 Active Additional Information Patient not taking.Reported on 11/11/2024 Amoxicillin-Pot Clavulanate 875-125 MG Oral Tablet (Augmentin) Take 1 Tablet by mouth in the morning and 1 Tablet before bedtime. 11/06/20 Active Doxycycline Hyclate 100 MG Oral Capsule 2 times a day. 11/06/20 Active Cephalexin 500 MG Oral Capsule (Keflex) Take 1 Capsule by mouth in the morning and 1 Capsule before bedtime. Do all this for 10 days. 20 Capsule 11/11/20 Active Hospital, Clinic, or Other Facility Administered Medication Ordered Dose Route Frequency Start Date End Date Status Albuterol Sulfate (Proventil) (5 MG/ML) 0.5% *conc* inhalation solution 2.5 mgIndications:COPD, group B, by GOLD 2017 classification ([facility]),Dyspnea and respiratory abnormalities 2.5 mg NEBULIZER PRN 08/29/2024 08/29/2025 Active Albuterol Sulfate (Proventil) (2.5 MG/3ML) 0.083% inhalation solution 2.5 mgIndications:COPD, group B, by GOLD 2017 classification ([facility]),Dyspnea and respiratory abnormalities 2.5 mg NEBULIZER PRN 08/29/2024 08/29/2025 Active documented as of this encounter (statuses as of 11/21/2024) Active Problems Problem Noted Date Diagnosed Date [...] Assessment & Plan (01/09/2022 2:18 PM EST): [facility] Triage Call: Reviewed case w/ Dr [...] as of this encounter (statuses as of 11/21/2024) Resolved Problems Problem Noted Date Diagnosed Date [...] as of this encounter (statuses as of 11/21/2024) Immunizations Name Administration Dates Next Due COVID-19 mRNA, LNP-s, No Pre serve, 2-Dose Series ([employer] 10/20/2021,02/28/2021,02/07/2021 COVID-19, MRNA-LNP, PF, 30 M CG/0.3 mL, 12 YRS AND ABOVE, IM ([employer]) 10/13/2023 Covid-19, Mrna, Lnp-s, Pf, B ivalent, [...] 02/09/2019 3:39 PM Cassie Cunningham RN * Because of a physical, [...] Telephone Encounter - Tereza Marrero LPN - 11/21/2024 9:15 AM EST Called pts daughter she is aware, and verbalizes an understanding. * Telephone Encounter - Suman Simpson MD - 11/21/2024 7:38 AM EST Please notify that I have heard back from Dr Jaramillo. He would like pt to have repeat labs this week (cbc, renal panel, iron panel - all ordered) and then he will help us make decisions on further iron. * Telephone Encounter - Suman Simpson MD - 11/18/2024 4:26 PM EST I would suggest that he try to finish the full course of antibiotics. I think he should be tested for c diff due to continued diarrhea. Ordered. I believe that the iron infusions were ordered and monitored by his machine bender (Dr Jaramillo). I will reach out to him and see if he can provide guidelines for goals. * Telephone Encounter - Juliana Peña CPhT - 11/18/2024 2:08 PM EST Caller's name: Jennifer Preferred call back number(OFFICE NUMBER FOR ): [phone] Reason for call: Patient's daughter calling in and states the new antibiotics are still causing thepatient to have diarrhea. Also she states that iron counts are still low and she has not heard if patient is to have any more iron infusions at this time. She is requesting a call back at either [phone] or [phone]. Thank you, Juliana Peña CPhT Sort Worker [facility] 11/18/2024,2:08 PM documented in this encounter Plan of Treatment Upcoming Encounters Date Type Department Care Team (Late st Contact Info) Description 11/24/2024 3:20 PM EST Anticoagulation Pharmacy, [address] [place] [address] [place] [address] 11/29/2024 4:00 PM EST Home Visit [facility] Coordination [facility] Integration [address] [place] [address] Yamilet Florence, Community Health Dredge Captain [address] [place] [address] 12/02/2024 2:30 PM EST Office Visit Interventional Pain Center, [facility] [address] [facility] [place] [address] Isis Mcrae PA-C [address] [place] [address] 12/22/2024 3:00 PM EST Office Visit Cardiology, [facility] [address] [place] [address] Rosetta Velasco, TOWER TRUCK DRIVER [address] [place] [address] 03/13/2025 3:00 PM EDT Office Visit Nephrology, [facility] [address] [place] [address] David Jaramillo MD [address] [place] [address] 04/04/2025 2:40 PM EDT Office Visit [facility] [address] [place] [phone] Suman Simpson MD [address] [place] [address] 04/26/2025 3:00 PM EDT Office Visit Pulmonary Medicine, [facility] [address] [facility] [address] Bradley Yepez MD [address] [facility] [place] [address] Scheduled Orders Name Type Priority Associated Diagnoses Orde r Schedule CLOSTRIDIUM DIFFICILE, PCR Lab Routine Diarrhea, unspecified type Expected: 11/18/2024 (Approximate), Expires: 11/18/2025 CBC Lab Routine 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) Expected: 11/21/2024 (Approximate), Expires: 11/21/2025 IRON SCREEN, INCLUDING TIBC Lab Routine 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) Expected: 11/21/2024 (Approximate), Expires: 11/21/2025 RENAL FUNCTION PANEL Lab Routine 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
--- OUTSIDE RECORDS SUMMARY | 2024-12-22 00:17 | External Medical Summary | Summary of Care ---
Author Name Unknown Organization [facility] Address [address] [place] [address] Phone [phone] Care Team Providers Care Jamb Cutter Name Role Phone Suman Simpson MD Primary Care Provider +1- [phone] Reason for Visit * Reason Onset Date Comments Home Health 11/07/2024 Encounter Details Date Type Department Care Team (Late st Contact Info) Description 11/07/[address] [facility] [address] [place] [address] Suman Simpson MD [address] [place] [address] Home Health Allergies Active Allergy Reactions Criticality Noted Date Comments Metolazone 07/29/2021 Severe HYponatremia Morphine Sulfate Other (Please comment) 006 hallucinate Oxycodone Other (Please comment) 07/07/2006 Hallucinate Penicillins 07/21/2011 Hallucinate documented as of this encounter (statuses as of 11/08/2024) Medications VITAMIN C 500 MG PO TABS [...] the morning. 14 Each 03/07/20 24 Active Sennosides-Docusa te Sodium 8.6-50 MG Oral Tablet [...] as of this encounter (statuses as of 11/08/2024) Active Problems Problem Noted Date Diagnosed Date [...] Assessment & Plan (01/09/2022 2:18 PM EST): [facility] Triage Call: Reviewed case w/ [...] as of this encounter (statuses as of 11/08/2024) Resolved Problems Problem Noted Date Diagnosed Date Resolved Date Hypertensive chronic kidney disease with stage 5 chronic kidney disease or end stage renal disease 01/27/2023 08/24/2023 Atherosclerosis of 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 09/13/2021 [...] as of this encounter (statuses as of 11/08/2024) Immunizations Name Administration Dates Next Due COVID-19 mRNA, LNP-s, No Pre serve, 2-Dose Series ([employer]) 10/20/2021,02/28/2021,02/07/2021 COVID-19, MRNA-LNP, PF, 30 M CG/0.3 mL, 12 YRS AND ABOVE, IM ([employer]) 10/13/2023 Covid-19, Mrna, Lnp-s, Pf, B ivalent, [...] Telephone Encounter - Barbara Michaud LPN - 11/07/2024 3:49 PM EST Admission/Start of Care Admission/Start of Care: Gloria TEJADA, Calling from: [facility] Patient was Admitted to: [facility], for: Cellulitis left 4th toe from 11/03 to 11/06 Referral ordered by: [facility] Referral received for: Retirement, PT, and OT Planned start of care date:Yes, Date 11/07 Start of care completed on: YES Report/Concerns of: Wounds Symptoms: See Below Vitals: T 97.5 P 72 RR 15 BP 110/70 SP O2 94% RA Weight 218 Blood sugar 157 Narrative: Patient was sent home on 2 oral antibiotic for left 4th toe cellulitis. Wound care order from [facility]: apply mupirocin covered by optifoam and dry dressing. Patient also noted to have a Left Desouza skin tear and right great toe open area. Not abnormal for him, [facility] has seen him for wound care before. She followed order from [facility] for left 4th toe. Great toe and desouza--previous wound care orders from wound clinic was-----silvadene and dry dressingover the area. Nurse going back out on Thursday. to PCP They will call with any updates or additional concerns from the upcoming HH visit. Last Office Visit: 09/27/2024 Has patient been scheduled or seen in the office for a follow up visit: Needs contacted to schedulefollow up Advised that orders will be signed by Suman Simpson MD and to fax to the office for signature. [facility] HH documented in this encounter Plan of Treatment Upcoming Encounters Date Type Department Care Team (Late st Contact Info) Description 11/18/2024 2:30 PM EST [facility], [facility] [phone] [place] [address] [place] [address] 12/02/2024 2:30 PM EST Office Visit Interventional Pain Center, [facility] 132 [facility] [place] [address] Isis Mcrae PA-C 132 [facility] [place] [address] 12/22/2024 3:00 PM EST Office Visit Cardiology, [facility] 132 [facility] [place] [address] Rosetta Velasco CRNP [address] [place] [address] [place] [address] 03/13/2025 3:00 PM EDT Office Visit Nephrology, [facility] [address] [place] [address] David Jaramillo MD [address] [place] [address] 04/04/2025 2:40 PM EDT Office Visit Family Practice, [facility] [address] [place] [phone] Suman Simpson MD [address] [place] [address] 04/26/2025 3:00 PM EDT Office Visit Pulmonary Medicine, [facility] 132 [facility] [place] [address] Bradley Yepez MD [address] [facility] [address] Health Maintenance Due Date Last Done Comments [...] Trejo Spouse Health Care Agent Care Teams Jamb Cutter Relationship Specialty Start Date End Date Suman Simpson MD [address] [place], [place] [id number] PCP - General 01/26/03 documented as of this encounter
--- OUTSIDE RECORDS SUMMARY | 2024-12-22 00:17 | External Medical Summary | Summary of Care ---
Author Name Unknown Organization [facility] Address [address] [place] [address] Phone [phone] Care Team Providers Care Honing Machine Set Up Operator Tool Name Role Phone Suman Simpson MD Primary Care Provider +1- [phone] Encounter Details Date Type Department Care Team (Late st Contact Info) Description 11/15/2024 10:00 AM EST Scheduled Telephone [facility]ination [facility] Integration [address] [place], [place] [phone] Linda Moraes, Community Health Acrobatic Rigger [address] [place] [address] Allergies Active Allergy Reactions Criticality Noted Date Comments Metolazone 07/29/2021 Severe HYponatremia Morphine Sulfate Other (Please comment) 006 hallucinate Oxycodone Other (Please comment) 07/07/2006 Hallucinate Penicillins 07/21/2011 Hallucinate documented as of this encounter (statuses as of 11/15/2024) Medications VITAMIN C 500 MG PO TABS [...] goal of less than 8.0% ([facility]) Use up to 4 times a day [...] disease not on chronic dialysis ([facility]) Take 2 tablets in AM and 2 [...] B, by GOLD 2017 classification ([facility]) Take 1 Capsule by mouth 3 times a day as needed for Cough. 30 Capsule 1 08/23/20 24 Active Vitamin D3 25 MCG (1000 UT) Oral Tablet (Vitamin D3) Take 1 Tablet by mouth in the morning. 30 Tablet 5 08/24/20 24 Active Breo Ellipta 100-25 MCG/ACT Inhalation Aerosol Powder Breath ActivatedIndicati ons:COPD, group B, by GOLD 2017 classification ([facility]) Inhale 1 Puff by mouth in the [...] goal of less than 8.0% ([facility]) Take 1 Tablet by mouth in the [...] B, by GOLD 2017 classification ([facility]),Dyspnea and respiratory abnormalities 2.5 mg NEBULIZER PRN 08/29/2024 08/29/2025 Active Albuterol Sulfate (Proventil) (2.5 MG/3ML) 0.083% inhalation solution 2.5 mgIndications:COPD, group B, by GOLD 2017 classification ([facility]),Dyspnea and respiratory abnormalities 2.5 mg NEBULIZER PRN 08/29/2024 08/29/2025 Active documented as of this encounter (statuses as of 11/15/2024) Active Problems Problem Noted Date Diagnosed Date Anemia in stage 4 chronic kidney disease 024 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) 01/19/2024 Secondary hyperparathyroidism of renal origin Renal osteodystrophy 01/19/2024 Acquired absence of other left toe(s) 09/18/2023 Assessment & Plan (09/21/2023 7:09 PM EDT): -Metatarsal 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 09/18/2023 Assessment & Plan (09/21/2023 7:09 PM EDT): -Shadia , Thursday COPD, group B, by GOLD [...] Assessment & Plan (01/09/2022 2:18 PM EST): [facility] Triage Call: Reviewed case w/ [...] as of this encounter (statuses as of 11/15/2024) Resolved Problems Problem Noted Date Diagnosed Date Resolved Date Hypertensive chronic kidney disease with stage 5 chronic kidney disease or end stage renal disease 01/27/2023 08/24/2023 Atherosclerosis of 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 09/13/2021 [...] as of this encounter (statuses as of 11/15/2024) Immunizations Name Administration Dates Next Due COVID-19 mRNA, LNP-s, No Pre serve, 2-Dose Series ([employer]) 10/20/2021,02/28/2021,02/07/2021 COVID-19, MRNA-LNP, PF, 30 M CG/0.3 [...] documented in this encounter Progress Notes * Renay Jarrell RN - 11/15/2024 12:07 PM EST noted documented in this encounter Plan of Treatment Upcoming Encounters Date Type Department Care Team (Late st Contact Info) Description 11/18/2024 2:30 PM EST Anticoagulation Pharmacy, [address] [place] [address] [facility] [address] [place] [address] 12/02/2024 2:30 PM EST Office Visit Interventional Pain Center, [facility] 132 [facility] [place] [address] Isis Mcrae PA-C 132 [facility] [place] [address] 12/22/2024 3:00 PM EST Office Visit Cardiology, [facility] 132 [facility] [place] [address] Rosetta Velasco, RECEPTIONIST CLERK [address] [facility] [place] [address] 03/13/2025 3:00 PM EDT Office Visit Nephrology, [facility] 200 [place] [address] David Jaramillo MD [address] [facility] [place] [address] 04/04/2025 2:40 PM EDT Office Visit Family [facility], [facility] [address] [place] [phone] Suman Simpson MD [address] [place] [address] 04/26/2025 3:00 PM EDT Office Visit Pulmonary Medicine, [facility] 132 [facility] [place] [address] Bradley Yepez MD [address] [place] [address] Health Maintenance Due Date Last Done Comments [...] Agents on File Name Relationship Healthcare Agent [facility] Communication Latia Trejo Spouse Health Care Agent Care Teams Honing Machine Set Up Operator Tool Relationship Specialty Start Date End Date Suman Simpson MD [address] [place] [address] PCP - General 01/26/03 documented as of this encounter
--- OUTSIDE RECORDS SUMMARY | 2024-12-22 00:17 | External Medical Summary | Summary of Care ---
Author Name Unknown Organization [facility] Address [address] [place] [address] Phone [phone] Care Team Providers Care Chip Crusher Operator Name Role Phone Suman Simpson MD Primary Care Provider +1- [phone] Reason for Visit * Reason Onset Date Comments Home Health 11/07/2024 Encounter Details Date Type Department Care Team (Late st Contact Info) Description 11/07/2024 Telephone [facility] [address] [place] [address] Suman Simpson MD [address] [place] [address] Home Health Allergies Active Allergy Reactions Criticality Noted Date Comments Metolazone 07/29/2021 Severe HYponatremia Morphine Sulfate Other (Please comment) 006 hallucinate Oxycodone Other (Please comment) 07/07/2006 Hallucinate Penicillins 07/21/2011 Hallucinate documented as of this encounter (statuses as of 11/09/2024) Medications VITAMIN C 500 MG PO TABS [...] A1c goal of less than 8.0% ([facility]) Use up to 4 times a [...] Active Additional Information Patient not taking.Reported on 11/08/2024 Sennosides-Docusa te Sodium 8.6-50 MG Oral Tablet (Senokot-S)Indica tions:Constipatio n, unspecified constipation type Take 1 Tablet by mouth at bedtime as needed for Constipation. May increase to 2 as needed 30 Tablet 03/07/20 24 Active Additional Information Patient not taking.Reported on 11/08/2024 Tamsulosin HCl 0.4 MG Oral Capsule (Flomax)Indicatio ns:BPH with obstruction/lower urinary tract symptoms Take 1 Capsule by mouth in the morning. 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 30 Capsule 1 08/23/20 24 Active Vitamin D3 25 MCG (1000 UT) Oral Tablet (Vitamin D3) Take 1 Tablet by mouth in the morning. 30 Tablet 5 08/24/20 24 Active Breo Ellipta 100-25 MCG/ACT Inhalation Aerosol Powder Breath ActivatedIndicati ons:COPD, group B, by GOLD 2017 classification ([facility]) Inhale 1 Puff by mouth in [...] A1c goal of less than 8.0% ([facility]) Take 1 Tablet by mouth in [...] of Breath. 360 mL 10/24/20 024 Active Additional Information Patient not taking.Reported on 11/08/2024 Hospital, Clinic, or Other Facility Administered Medication Ordered Dose Route Frequency Start Date End Date Status Albuterol Sulfate (Proventil) (5 MG/ML) 0.5% *conc* inhalation solution 2.5 mgIndications:COPD, group B, by GOLD 2017 classification ([facility]),Dyspnea and respiratory abnormalities 2.5 mg NEBULIZER PRN 08/29/2024 08/29/2025 Active Albuterol Sulfate (Proventil) (2.5 MG/3ML) 0.083% inhalation solution 2.5 mgIndications:COPD, group B, by GOLD 2017 classification ([facility]),Dyspnea and respiratory abnormalities 2.5 mg NEBULIZER PRN 08/29/2024 08/29/2025 Active documented as of this encounter (statuses as of 11/09/2024) Active Problems Problem Noted Date Diagnosed Date [...] Assessment & Plan (01/09/2022 2:18 PM EST): [facility] Triage Call: Reviewed case w/ [...] as of this encounter (statuses as of 11/09/2024) Resolved Problems Problem Noted Date Diagnosed Date Resolved Date Hypertensive chronic kidney disease with stage 5 chronic kidney disease or end stage renal disease 01/27/2023 08/24/2023 Atherosclerosis of [place] 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 09/13/2021 [...] as of this encounter (statuses as of 11/09/2024) Immunizations Name Administration Dates Next Due COVID-19 mRNA, LNP-s, No Pre serve, 2-Dose Series ([email or web address]) 10/20/2021,02/28/2021,02/07/2021 COVID-19, MRNA-LNP, PF, 30 M CG/0.3 mL, 12 YRS AND ABOVE, IM ([facility]) 10/13/2023 Covid-19, Mrna, Lnp-s, Pf, [...] encounter Miscellaneous Notes * Telephone Encounter - Rosario Handy OSA - 11/09/2024 4:37 PM EST Done. 11/09/2024 * Telephone Encounter - Barbara Michaud LPN - 11/07/2024 3:49 PM EST Admission/Start of Care Admission/Start of Care: Gloria TEJADA, Calling from: [facility] Patient was Admitted to: [facility], for: Cellulitis left 4th toe from 11/03 to 11/06 Referral ordered by: [facility] Referral received for: Jail, PT, and OT Planned start of care date:Yes, Date 11/07 Start of care completed on: YES Report/Concerns of: Wounds Symptoms: See Below Vitals: T 97.5 P 72 RR 15 BP 110/70 SP O2 94% RA Weight 218 Blood sugar 157 Narrative: Patient was sent home on 2 oral antibiotic for left 4th toe cellulitis. Wound care order from [facility]: apply mupirocin covered by optifoam and dry dressing. Patient also noted to have a Left Rose skin tear and right great toe open area. Not abnormal for him, [facility] has seen him for wound care before. She followed order from [facility] for left 4th toe. Great toe and rose--previous wound care orders from wound clinic was-----silvadene and dry dressingover the area. Nurse going back out on Thursday. FYI to PCP They will call with any updates or additional concerns from the upcoming HH visit. Last Office Visit: 09/27/2024 Has patient been scheduled or seen in the office for a follow up visit: Needs contacted to schedulefollow up Advised that orders will be signed by Suman Simpson MD and to fax to the office for signature. [facility] HH documented in this encounter Plan of Treatment Upcoming Encounters Date Type Department Care Team (Late st Contact Info) Description 11/11/2024 2:00 PM EST Office Visit Family Practice, Alex Mcgarry [address] [place] [phone] Suman Simpson MD [address] [place] [address] 11/18/2024 2:30 PM EST Anticoagulation Pharmacy, Alex Benavides [address] [place] [phone] [facility] [address] [place] [address] [place] [address] 12/02/2024 2:30 PM EST Office Visit Interventional Pain Center, [facility] [address] [place] [address] Isis Mcrae PA-C [address] [place] [address] 12/22/2024 3:00 PM EST Office Visit Cardiology, [facility] 132 [facility] [place] [address] Rosetta Velasco CRNP [address] [facility] [place] [address] 03/13/2025 3:00 PM EDT Office Visit Nephrology, [facility] [address] [place] [address] David Jaramillo MD [address] [place] [address] 04/04/2025 2:40 PM EDT [facility] [address] [place] [phone] Suman Simpson MD [address] [place] [address] 04/26/2025 3:00 PM EDT Office Visit Pulmonary Medicine, [facility] 132 [facility] [place] [address] Bradley Yepez MD [address] [place] [address] Health Maintenance Due Date Last Done Comments [...] IN PAST YEAR FOR COPD 10/24/2025 10/24/2024 Depression Screening 11/08/2025 11/08/2024, 06/21/20 24 DTap/Tdap Vaccines (4 - Td or Tdap) [...] Trejo Spouse Health Care Agent Care Teams Chip Crusher Operator Relationship Specialty Start Date End Date Suman Simpson MD [address] [place] [address] PCP - General 01/26/03 documented as of this encounter
--- OUTSIDE RECORDS SUMMARY | 2024-12-22 00:17 | External Medical Summary | Summary of Care ---
Author Name Unknown Organization [facility] Address [address] [place] [address] Phone [phone] Care Team Providers Care Senior Master Scheduler Name Role Phone Suman Simpson MD Primary Care Provider +1- [phone] Reason for Visit * Reason Onset Date Comments Appointment 11/08/2024 [facility] d c appt Encounter Details Date Type Department Care Team (Late st Contact Info) Description 11/08/2024 Telephone Care Coordination and Integration [address] [place] [address] Tia Perez RN [address] [place] [id number] Appointment ([facility] dc appt) Allergies Active Allergy Reactions Criticality Noted Date [...] chronic dialysis ([facility]) Take 2 tablets in AM and [...] classification ([facility]) Take 1 Capsule by mouth 3 [...] Additional Information Patient not taking.Reported on 11/08/2024 Amoxicillin-Pot Clavulanate 875-125 MG Oral Tablet (Augmentin) [...] 2017 classification ([facility]),Dyspnea and respiratory abnormalities 2.5 mg NEBULIZER PRN 08/29/2024 08/29/2025 Active Albuterol Sulfate (Proventil) (2.5 MG/3ML) 0.083% inhalation solution 2.5 mgIndications:COPD, group B, by GOLD 2017 classification ([facility]),Dyspnea and respiratory abnormalities 2.5 mg NEBULIZER PRN [...] Assessment & Plan (01/09/2022 2:18 PM EST): [facility] Triage Call: Reviewed case w/ Dr [...] stage renal disease 01/27/2023 08/24/2023 Atherosclerosis of [place] 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 [...] mRNA, LNP-s, No Pre serve, 2-Dose Series ([employer]) 10/20/2021,02/28/2021,02/07/2021 COVID-19, MRNA-LNP, PF, 30 M CG/0.3 mL, 12 YRS AND ABOVE, IM ([facility] 10/13/2023 Covid-19, Mrna, Lnp-s, Pf, [...] Date Author No 02/09/2019 3:39 PM Sree uCnningham RN documented in this encounter Miscellaneous Notes * Telephone Encounter - Rosario Handy OSA - 11/09/2024 4:36 PM EST Done. 11/09/2024 * Telephone Encounter - Tia Perez RN - 11/08/2024 1:59 PM EST 11/03/24 through 11/06/24 [facility], left 4th toe cellulitis/ulceration Please call patient for hospital discharge follow up appointment. Thank you. documented in this encounter Plan of Treatment Upcoming Encounters Date Type Department Care Team (Late st Contact Info) Description 11/11/2024 2:00 PM EST Office Visit Family Practice, Buras Buckaro Zeferino [facility] [place], [place] [phone] Suman Simpson MD [address] [place] [address] 11/18/2024 2:30 PM EST Anticoagulation Pharmacy, [place] Buckaro Makayla [facility] [place] [phone] [address] [place] [address] [facility], [place] [address] 12/02/2024 2:30 PM EST Office Visit Interventional Pain Center, [facility] 132 [place] [address] Isis Mcrae PA-C 132 [facility] [address] 12/22/2024 3:00 PM EST Office Visit Cardiology, [facility] 132 [place] [address] Rosetta Velasco CRNP [address] [place] [address] 03/13/2025 3:00 PM EDT Office Visit Nephrology, Kamaljit Jacobsen [address] [place], [place] [address] David Jaramillo MD 200 [facility] [place] [address] 04/04/2025 2:40 PM EDT Office Visit [facility], [facility] [place] [phone] Suman Simpson MD [address] [place] [address] 04/26/2025 3:00 PM EDT Office Visit Pulmonary Medicine, [facility] [address] [place] [address] Bradley Yepez MD [address] [place] [address] Health Maintenance Due Date Last Done [...] Agents on File Name Relationship Healthcare Agent [facility] Communication Latia Trejo Spouse Health Care Agent Care Teams Senior Master Scheduler Relationship Specialty Start Date End Date Suman Simpson MD [address] [place] [address] PCP - General 01/26/03 documented as of this encounter
--- OUTSIDE RECORDS SUMMARY | 2024-12-22 00:17 | External Medical Summary | Summary of Care ---
Author Name Unknown Organization [facility] Address [address] [place] [address] Phone [phone] Care Team Providers Care Automatic Mounter Name Role Phone Suman Simpson MD Primary Care Provider +1- [phone] Reason for Visit * Reason Onset Date Comments Nurse Documentation 11/16/2024 Encounter Details Date Type Department Care Team (Late st Contact Info) Description 11/16/2024 Telephone [facility] [address] [place] [address] Suman Simpson MD [address] [place] [address] Nurse Documentation Allergies Active Allergy Reactions Criticality Noted Date Comments Metolazone 07/29/2021 Severe HYponatremia Morphine Sulfate Other (Please comment) 006 hallucinate Oxycodone Other (Please comment) 07/07/2006 Hallucinate Penicillins 07/21/2011 Hallucinate documented as of this encounter (statuses as of 11/16/2024) Medications VITAMIN C 500 MG PO TABS [...] this for 10 days. 20 Capsule 11/11/20 024 Active Hospital, Clinic, or Other Facility [...] as of this encounter (statuses as of 11/16/2024) Active Problems Problem Noted Date Diagnosed Date [...] Assessment & Plan (01/09/2022 2:18 PM EST): [facility] Triage Call: Reviewed case w/ [...] as of this encounter (statuses as of 11/16/2024) Resolved Problems Problem Noted Date Diagnosed Date Resolved Date Hypertensive chronic kidney disease with stage 5 chronic kidney disease or end stage renal disease 01/27/2023 08/24/2023 Atherosclerosis of [place] 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 09/13/2021 [...] as of this encounter (statuses as of 11/16/2024) Immunizations Name Administration Dates Next Due COVID-19 mRNA, LNP-s, No Pre serve, 2-Dose Series ([employer]) 10/20/2021,02/28/2021,02/07/2021 COVID-19, MRNA-LNP, PF, 30 M CG/0.3 mL, 12 YRS AND ABOVE, IM ([employer]) [...] 02/09/2019 3:39 PM EDSree Bruno RN * Because of a physical, mental, [...] Encounter - Linda Yousif MED ASSIST - 11/16/2024 3:56 PM EST Received Fax for BFPROVIDERS: Dr. Suman Simpson ORDER received from Tre MCCANN and FAXED documented in this encounter Plan of Treatment Upcoming Encounters Date Type Department Care Team (Late st Contact Info) Description 11/18/2024 2:30 PM EST Anticoagulation Pharmacy, [address] [facility] [phone] [facility] [address] [facility] [address] 12/02/2024 2:30 PM EST Office Visit Interventional Pain Center, [facility] 132 [facility] [place] [address] Isis Mcrae PA-C 132 [facility] [place] [address] 12/22/2024 3:00 PM EST Office Visit Cardiology, [facility] [address] [facility] [place] [address] Rosetta Velasco CRNP [address] [place] [address] [place] [address] 03/13/2025 3:00 PM EDT Office Visit Nephrology, [facility] 200 [facility] [place], [place] [address] David Jaramillo MD 200 [facility], [place] [address] 04/04/2025 2:40 PM EDT Office Visit Family [facility] [address] [facility] [phone] Suman Simpson MD 226 [facility] [address] 04/26/2025 3:00 PM EDT Office Visit Pulmonary Medicine, [facility] 132 [facility] [place] [address] Bradley Yepez MD [address] [facility] [place] [address] Health Maintenance Due Date Last Done Comments [...] Agents on File Name Relationship Healthcare Agent [facility] Communication Latia Trejo Spouse Health Care Agent Care Teams Automatic Mounter Relationship Specialty Start Date End Date Suman Simpson MD PCP - General 01/26/03 documented as of this encounter
--- OUTSIDE RECORDS SUMMARY | 2024-12-22 00:17 | External Medical Summary | Summary of Care ---
Author Name Unknown Organization [facility] Address [address] [place] [address] Phone [phone] Care Team Providers Care Senior Estimator Name Role Phone Suman Simpson MD Primary Care Provider +1- [phone] Encounter Details Date Type Department Care Team (Late st Contact Info) Description 11/15/2024 10:00 AM EST Scheduled Telephone Care Coordination and Integration [address] [place], [place] [phone] Linda Moraes, Community Health Sales Intern [address] [place] [address] Allergies Active Allergy Reactions Criticality Noted Date [...] A1c goal of less than 8.0% ([facility]) Use up to 4 times a day [...] GOLD 2017 classification ([facility]) Take 1 Capsule by mouth 3 times [...] A1c goal of less than 8.0% ([facility]) Take 1 Tablet by mouth in the [...] by GOLD 2017 classification ([facility]),Dyspnea and respiratory abnormalities 2.5 mg NEBULIZER PRN 08/29/2024 08/29/2025 Active Albuterol Sulfate (Proventil) (2.5 MG/3ML) 0.083% inhalation solution 2.5 mgIndications:COPD, group B, by GOLD 2017 classification ([facility]),Dyspnea and respiratory abnormalities 2.5 mg NEBULIZER PRN [...] Assessment & Plan (01/09/2022 2:18 PM EST): [facility] Triage Call: Reviewed case w/ Dr Jraamillo - pt clearly sounds volume overloaded despite [...] stage renal disease 01/27/2023 08/24/2023 Atherosclerosis of [place] 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 09/13/2021 [...] mRNA, LNP-s, No Pre serve, 2-Dose Series ([employer]) 10/20/2021,02/28/2021,02/07/2021 COVID-19, MRNA-LNP, PF, 30 M CG/0.3 [...] Description 11/18/2024 2:30 PM EST Anticoagulation Pharmacy, [place] [facility] [address] [facility] [place] [phone] [facility] [address] [facility] [place] [address] 12/02/2024 2:30 PM EST Office Visit Interventional Pain Center, [facility] 132 [facility] [place] [address] Isis Mcrae PA-C 132 [facility] [place] [address] 12/22/2024 3:00 PM EST Office Visit Cardiology, [facility] [address] [facility] [place] [address] Rosetta Velasco, CHRISTOPHER 400 [facility] [place] [address] 03/13/2025 3:00 PM EDT Office Visit Nephrology, [facility] 200 [facility] [place] [address] David Jaramillo MD 200 [facility] [place] [address] 04/04/2025 2:40 PM EDT Office Visit Family [facility] [address] [place] [phone] Suman Simpson MD [address] [place] [address] 04/26/2025 3:00 PM EDT Office Visit Pulmonary Medicine, [facility] [place] [address] Bradley Yepez MD [address] [facility] [place] [address] Health Maintenance Due Date Last Done Comments [...] Agents on File Name Relationship Healthcare Agent [facility] p Communication Latia Trejo Spouse Health Care Agent Care Teams Senior Estimator Relationship Specialty Start Date End Date Suman Simpson MD [address] [facility] [place] [address] PCP - General 01/26/03 documented as of this encounter
--- OUTSIDE RECORDS SUMMARY | 2024-12-22 00:18 | External Medical Summary | Summary of Care ---
Author Name Unknown Organization [facility] Address [address] [place] [address] Phone [phone] Care Team Providers Care Supply Officer Name Role Phone Suman Simpson MD Primary Care Provider +1- [phone] Reason for Visit * Reason Comments Sore Foot Encounter Details Date Type Department Care Team (Late st Contact Info) Description 11/03/2024 9:40 AM EST Office Visit Family Practice [facility] [address] [place] [address] Wesly Benson III, MD 200 [place] [address] Cellulitis of left lower extremity* Allergies Active Allergy Reactions Criticality Noted Date [...] hemoglobin A1c goal of less than 8.0% ([facility]) Use up to 4 times [...] s:COPD, group B, by GOLD 2017 classification ([facility]) Take 1 Capsule by mouth 3 times a day as needed for Cough. 30 Capsule 1 08/23/20 24 Active Vitamin D3 25 MCG (1000 UT) Oral Tablet (Vitamin D3) Take 1 Tablet by mouth in the morning. 30 Tablet 5 08/24/20 24 Active Breo Ellipta 100-25 MCG/ACT Inhalation Aerosol Powder Breath ActivatedIndicati ons:COPD, group B, by GOLD 2017 classification ([facility]) Inhale 1 Puff by mouth [...] hemoglobin A1c goal of less than 8.0% ([facility]) Take 1 Tablet by mouth [...] mgIndications:COPD, group B, by GOLD 2017 classification ([facility]),Dyspnea and respiratory abnormalities 2.5 mg NEBULIZER PRN 08/29/2024 08/29/2025 Active Albuterol Sulfate (Proventil) (2.5 MG/3ML) 0.083% inhalation solution 2.5 mgIndications:COPD, group B, by GOLD 2017 classification ([facility]),Dyspnea and respiratory abnormalities 2.5 mg [...] Assessment & Plan (01/09/2022 2:18 PM EST): [facility] Call: Reviewed case w/ Dr [...] stage renal disease 01/27/2023 08/24/2023 Atherosclerosis of jam[place] 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 09/13/2021 [...] mRNA, LNP-s, No Pre serve, 2-Dose Series ([email or web address]) 10/20/2021,02/28/2021,02/07/2021 COVID-19, MRNA-LNP, PF, 30 M CG/0.3 mL, 12 YRS AND ABOVE, IM ([employer]irnat) 10/13/2023 Covid-19, Mrna, Lnp-s, Pf, B ivalent, [...] Sign Reading Time Taken Comments Blood Pressure 146/71 11/03/2024 10:03 AM EST Pulse 93 11/03/2024 10:03 AM EST Temperature 36.9 C (98.5 F) 11/03/2024 10:[address] Respiratory Rate 16 11/03/2024 10:03 AM EST Oxygen Saturation - - Inhaled Oxygen Concentration - - Weight 102.1 kg (225 lb) 11/03/2024 10:03 AM EST Height - - Body Mass Index 38.02 10/24/2024 3:03 PM EST documented in this [...] Sree Bishop RN documented in this encounter Progress Notes * Kelley III, Wesly Miranda MD - 11/03/2024 10:30 AM EST Subjective: Tre Trejo is a 84 year old male. 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 has had an open wound on his right lower leg more laterally being treated this has been a 3 or 4 weeks got a new pair of shoes had a rubbing on his 4th toe left Neosporin was being put on and over the last 2 days the entire toenow is red hot swollen with extension into the proximal foot no pus drainage appreciated PHM: Patient Active Problem List Diagnosis Diaphragmatic hernia [...] hemoglobin A1c goal of less than 8.0% ([facility]) HTN, goal below 140/90 Diabetes mellitus with nephropathy (HCC) Pulmonary HTN ([facility]) Atrial fibrillation, unspecified type ([facility]) Type 2 diabetes mellitus with stage 5 chronic kidney disease not on chronic dialysis, without long-term current use of insulin ([facility]) 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 ([facility]) Hyponatremia Thrombocytopenia (HCC) End stage renal disease ([facility]) Other iron deficiency anemias Diabetic neuropathy ([facility]) Other specified hypothyroidism Rheumatoid arthritis ([facility]) COPD, group B, by GOLD 2017 classification ([facility]) Acquired absence of other left toe(s) ([facility]) 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 14 Each3 Sennosides-Docusate Sodium 8.6-50 MG Oral Tablet (Senokot-S) [...] for Nausea. dissolve on tongue. 20 Tablet 0 Benzonatate 100 MG Oral [...] directed. Dx Code: J44.9 1 Each 3 Albuterol Sulfate 0.63 MG/3ML Inhalation Nebulization Solution (Accuneb) Inhale 1 Vial via nebulizer every 6 hours as needed for Wheezing or Shortness of Breath. 360 mL 0 Current Facility-Administered Medications Medication Dose Route [...] performed by Maurisio Mike, DO at OR [facility] GRAFT EAR CARTILAGE TO NOSE/EAR N/A 02/09/2019 GRAFT EAR CARTILAGE TO EAR OR NOSE performed by Amanda Marcelino MD at OR [facility] INFORMATION 1988 ear surg, nerve cut dysequilibrium left [facility] [place] [place] INFORMATION amputation tip rt index finger, accident INFORMATION back surgery INJECT DX/THER SUBSTANCE INTERLAMINAR LUMBAR/SACRAL W IMAGE GUIDE 06/27/2019 INJECTION SPINE LUMBAR OR SACRAL performed by [facility] Cee, DO at OR [facility] INJECT DX/THER SUBSTANCE INTERLAMINAR LUMBAR/SACRAL W IMAGE GUIDE 07/14/2019 INJECTION SPINE LUMBAR OR SACRAL performed by [facility] Chanels, DO at OR [facility] KNEE ARTHROSCOPY, DIAGNOSTIC Knee Arthroscopy right Dr Wang L-/S-SPINE PARAVERTEBRAL FACET INJ,1 LEVEL 08/18/2019 L-/S-SPINE PARAVERTEBRAL FACET INJ, 1 LEVEL performed by [facility] Cee, DO at OR [facility] L-/S-SPINE PARAVERTEBRAL FACET INJ,1 LEVEL 09/05/2019 L-/S-SPINE PARAVERTEBRAL FACET INJ, 1 LEVEL performed by [facility] Cee, DO at OR [facility] NASAL SEPTUM CARTILAGE FOR GRAFT N/A 02/09/2019 OBTAIN CARTILAGE GRAFT NASAL SEPTUM performed by Amanda Marcelino MD at OR [facility] RECONSTRUCTION OF NOSE/SEPTUM N/A 02/09/2019 RHINOPLASTY COMPLETE INCLUDING MAJOR SEPTAL REPAIR performed by Amanda Marcelino MD at OR [facility] REMOVE CATARACT, INSERT LENS PROSTH Bilateral 2017 Dr Vinson REMOVE NECK SPINE LAMINA, 1-2 SEGS Cervical Laminectomy [facility] [place] [place] REMOVE RIB CARTILAGE FOR GRAFT N/A 02/09/2019 OBTAIN CARTILAGE GRAFT COSTOCHONDRAL performed by Amanda Marcelino MD at OR [facility] REMOVE TONSILS & ADENOIDS, UNDER 12 Tonsillectomy/Adenoids,<12 Y/O REPAIR INGUINAL HERNIA, UNDER AGE 5 Inguinal Hernia Repair,6mo-5yr,Reduc REPAIR RUPTURED ROTATOR CUFF, CHRON Rotator Repair Cuff,Chronic left REVISION OF PALATE, PHARYNX/UVULA 03/28/2014 PALATOPHARYNGOPLASTY performed by Too Medina MD at OR [facility] SMALL BOWEL ENDOSCOPY W/BX 06/07/2010 hiatal hernia bxs done--Barretts repeat in one yr Review of patient's allergies indicates: Allergen Reactions Metolazone Severe HYponatremia Morphine [Morphine Sulfate] Other (Please comment) hallucinate Oxycodone [Oxycodone] Other (Please comment) Hallucinate Penicillins Hallucinate Objective: BP 146/71 | Pulse 93 | Temp 98.5 F (36.9 C) | Resp 16 | Wt 225 lb (102.1 kg) | BMI 38.02 kg/m| BSA 2.16 m Physical Exam: General: alert Exam as above ASSESSMENT/PLAN: Cellulitis of left lower extremity (Primary) Discussed will proceed to the Emergency Room Emergency Room has been called Wesly Benson III, MD * Latia Yu RN - 11/03/2024 10:03 AM EST Got new shoes which rubbed against his toe. Left 4th toe. Also has an open area on right leg. documented in this encounter Plan of Treatment Upcoming Encounters Date Type Department Care Team (Late st Contact Info) Description 11/18/2024 2:30 PM EST Anticoagulation Pharmacy, [facility] [address] [place] [phone] [place], [facility] [address] [place] [address] 12/02/2024 2:30 PM EST Office Visit Interventional Pain Center, [facility] 132 [facility] [place] [address] Isis Mcrae PA-C 132 [facility] [place] [address] 12/22/2024 3:00 PM EST Office Visit Cardiology, [facility] 132 [facility] [place] [address] Rosetta Velasco CRNP [address] [place] [address] [place] [address] 03/13/2025 3:00 PM EDT Office Visit Nephrology, [facility] [address] [place] [address] David Jaramillo MD [address] [place], [place] [address] 04/04/2025 2:40 PM EDT Office Visit Family Practice, [facility] [address] [facility] [phone] Suman Simpson MD 226 [place] [address] 04/26/2025 3:00 PM EDT Office Visit Pulmonary Medicine, [facility] 132 [facility] [place] [address] Bradley Yepez MD [address] [facility] [place] [address] Health Maintenance Due Date Last Done Comments [...] Atrial fibrillation, unspecified type (HCC) Cellulitis of left lower extremity- Primary Cellulitis and abscess of leg, except foot documented in this encounter Advance Directives * [...] Trejo Spouse Health Care Agent Care Teams Supply Officer Relationship Specialty Start Date End Date Suman Simpson MD [address] [place] [facility] [place] [address] PCP - General 01/26/03 documented as of this encounter
--- OUTSIDE RECORDS SUMMARY | 2024-12-22 00:18 | External Medical Summary | Summary of Care ---
Author Name Unknown Organization [facility] Address [address] [place] [address] Phone [phone] Care Team Providers Care School Photographs Detailer Name Role Phone Suman Simpson MD Primary Care Provider +1- [phone] Encounter Details Date Type Department Care Team (Late st Contact Info) Description 11/07/2024 Population Health External Data Unspecified Department Allergies Active Allergy Reactions Criticality Noted Date Comments Metolazone 07/29/2021 Severe HYponatremia Morphine Sulfate Other (Please comment) 006 hallucinate Oxycodone Other (Please comment) 07/07/2006 Hallucinate Penicillins 07/21/2011 Hallucinate documented as of this encounter (statuses as of 11/07/2024) Medications VITAMIN C 500 MG PO TABS [...] A1c goal of less than 8.0% ([facility]) Use up to 4 times [...] GOLD 2017 classification ([facility]) Take 1 Capsule by mouth [...] A1c goal of less than 8.0% ([facility]) Take 1 Tablet by mouth [...] by GOLD 2017 classification ([facility]),Dyspnea and respiratory abnormalities 2.5 mg NEBULIZER PRN 08/29/2024 08/29/2025 Active Albuterol Sulfate (Proventil) (2.5 MG/3ML) 0.083% inhalation solution 2.5 mgIndications:COPD, group B, by GOLD 2017 classification ([facility]),Dyspnea and respiratory abnormalities 2.5 mg NEBULIZER PRN 08/29/2024 08/29/2025 Active documented as of this encounter (statuses as of 11/07/2024) Active Problems Problem Noted Date Diagnosed Date [...] Assessment & Plan (01/09/2022 2:18 PM EST): [facility] Triage Call: Reviewed case w/ [...] as of this encounter (statuses as of 11/07/2024) Resolved Problems Problem Noted Date Diagnosed Date Resolved Date Hypertensive chronic kidney disease with stage 5 chronic kidney disease or end stage renal disease 01/27/2023 08/24/2023 Atherosclerosis of [place] 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 09/13/2021 [...] as of this encounter (statuses as of 11/07/2024) Immunizations Name Administration Dates Next Due COVID-19 mRNA, LNP-s, No Pre serve, 2-Dose Series ([employer]) 10/20/2021,02/28/2021,02/07/2021 COVID-19, MRNA-LNP, PF, 30 M CG/0.3 mL, 12 YRS AND ABOVE, IM ([facility]) 10/13/2023 Covid-19, Mrna, Lnp-s, Pf, B ivalent, 30 Mcg, IM, 12 yrs and above ([employer]) 09/12/2022 HEPATITIS B VACCINE, RECOMB, 20 MCG/ML, [...] Description 11/18/2024 2:30 PM EST Anticoagulation Pharmacy, [facility] [address] [facility] [place] [phone] [place], [facility] [address] [place] [address] 12/02/2024 2:30 PM EST Office Visit Interventional Pain Center, [facility] 132 [facility] [place] [address] Isis Mcrae PA-C 132 [facility] [place] [address] 12/22/2024 3:00 PM EST Office Visit Cardiology, [facility] 132 [facility] [place] [address] Rosetta Velasco CRNP [address] [place] [address] 03/13/2025 3:00 PM EDT Office Visit Nephrology, [facility] [address] [place] [address] David Jaramillo MD [address] [place] [address] 04/04/2025 2:40 PM EDT Office Visit Family Practice, [facility] [phone] Suman Simpson MD [address] [place] [address] 04/26/2025 3:00 PM EDT Office Visit Pulmonary Medicine, [facility] 132 [facility] [place] [address] Bradley Yepez MD [address] [facility] [place] [address] Health Maintenance Due Date Last Done Comments [...] Trejo Spouse Health Care Agent Care Teams School Photographs Detailer Relationship Specialty Start Date End Date Suman Simpson MD [address] [place] [address] PCP - General 01/26/03 documented as of this encounter
--- OUTSIDE RECORDS SUMMARY | 2024-12-22 00:18 | External Medical Summary | Summary of Care ---
Author Name Unknown Organization [facility] Address [address] [place] [address] Phone [phone] Care Team Providers Care Coder Name Role Phone Suman Simpson MD Primary Care Provider +1- [phone] Reason for Visit * Reason Onset Date Comments Test Results 10/25/2024 Encounter Details Date Type Department Care Team (Late st Contact Info) Description 10/25/[address] [facility] [place] [address] [place] [address] Suman Simpson MD [address] [place] [address] Test Results Allergies Active Allergy Reactions Criticality Noted Date Comments Metolazone 07/29/2021 Severe HYponatremia Morphine Sulfate Other (Please comment) 006 hallucinate Oxycodone Other (Please comment) 07/07/2006 Hallucinate Penicillins 07/21/2011 Hallucinate documented as of this encounter (statuses as of 11/03/2024) Medications VITAMIN C 500 MG PO TABS [...] as of this encounter (statuses as of 11/03/2024) Active Problems Problem Noted Date Diagnosed Date [...] Assessment & Plan (01/09/2022 2:18 PM EST): [facility] Triage Call: Reviewed case w/ Dr [...] as of this encounter (statuses as of 11/03/2024) Resolved Problems Problem Noted Date Diagnosed Date Resolved Date Hypertensive chronic kidney disease with stage 5 chronic kidney disease or end stage renal disease 01/27/2023 08/24/2023 Atherosclerosis of sw[place] 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 09/13/2021 [...] as of this encounter (statuses as of 11/03/2024) Immunizations Name Administration Dates Next Due COVID-19 mRNA, LNP-s, No Pre serve, 2-Dose Series ([employer] 10/20/2021,02/28/2021,02/07/2021 COVID-19, MRNA-LNP, PF, 30 M CG/0.3 mL, 12 YRS AND ABOVE, IM ([employer]) 10/13/2023 Covid-19, Mrna, Lnp-s, Pf, B ivalent, [...] encounter Miscellaneous Notes * Telephone Encounter - Kvein Philippe MD - 10/28/2024 2:19 PM EST Please note that Dr Simpson addressed the recent lab results (09/27/24). Iron still a little lowso more Iron infusion may be needed. Ultimately [...] of Test : 09/27 Location of Test: [place] Ordering Provider: PCP Patient has been made [...] Description 11/18/2024 2:30 PM EST [facility] Pharm[facility], [place] [facility] 226 [facility] [place] [phone] [facility] [address] [facility] [address] 12/02/2024 2:30 PM EST Office Visit Interventional Pain Center, [facility] [place] [address] Isis Mcrae PA-C [address] [facility] [address] 12/22/2024 3:00 PM EST Office Visit Cardiology, [facility] [address] Rosetta Velasco CRNP [address] [place] [address] 03/13/2025 3:00 PM EDT Office Visit Nephrology, [facility] 200 [facility] [place], [place] [address] David Jaramillo MD [address] [facility] [place], [place] [address] 04/04/2025 2:40 PM EDT Office Visit Family Practice, [facility] [address] [facility] [phone] Suman Simpson MD [address] [facility] [address] 04/26/2025 3:00 PM EDT Office Visit Pulmonary Medicine, [facility] [address] [facility] [address] Bradley Yepez MD [address] [facility] [place] [address] Health Maintenance Due Date Last Done Comments [...] Agents on File Name Relationship Healthcare Agent [facility] Communication Latia Trejo Spouse Health Care Agent Care Teams Coder Relationship Specialty Start Date End Date Suman Simpson MD [address] [place] [address] PCP - General 01/26/03 documented as of this encounter
--- OUTSIDE RECORDS SUMMARY | 2024-12-22 00:18 | External Medical Summary | Summary of Care ---
Author Name Unknown Organization [facility] Address [address] [place] [address] Phone [phone] Care Team Providers Care Manager [employer]ospace Name Role Phone Suman Simpson MD Primary Care Provider +1- [phone] Reason for Visit * Reason Onset Date Comments Hospital Follow-Up 11/07/2024 Encounter Details Date Type Department Care Team (Late st Contact Info) Description 11/07/2024 Telephone [facility] Medicine [address] [place] [address] David Jaramillo MD [address] [place] [address] Hospital Follow-Up Allergies Active Allergy Reactions Criticality Noted Date [...] of less than 8.0% ([facility]) Use up to 4 times a [...] by GOLD 2017 classification ([facility]) Take 1 Capsule by mouth 3 times a day as needed for Cough. 30 Capsule 1 08/23/20 24 Active Vitamin D3 25 MCG (1000 UT) Oral Tablet (Vitamin D3) Take 1 Tablet by mouth in the morning. 30 Tablet 5 08/24/20 24 Active Breo Ellipta 100-25 MCG/ACT Inhalation Aerosol Powder Breath ActivatedIndicati ons:COPD, group B, by GOLD 2017 classification ([facility]) Inhale 1 Puff by mouth in [...] of less than 8.0% ([facility]) Take 1 Tablet by mouth in [...] Shortness of Breath. 360 mL 10/24/20 Active Hospital, Clinic, or Other Facility Administered Medication Ordered Dose Route Frequency Start Date End Date Status Albuterol Sulfate (Proventil) (5 MG/ML) 0.5% *conc* inhalation solution 2.5 mgIndications:COPD, group B, by GOLD 2017 classification ([facility]),Dyspnea and respiratory abnormalities 2.5 mg NEBULIZER PRN 08/29/2024 08/29/2025 Active Albuterol Sulfate (Proventil) (2.5 MG/3ML) 0.083% inhalation solution 2.5 mgIndications:COPD, group B, by GOLD 2017 classification ([facility]),Dyspnea and respiratory abnormalities 2.5 mg NEBULIZER [...] Assessment & Plan (01/09/2022 2:18 PM EST): [facility] Triage Call: Reviewed case w/ Dr [...] stage renal disease 01/27/2023 08/24/2023 Atherosclerosis of [place] 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 09/13/2021 [...] mRNA, LNP-s, No Pre serve, 2-Dose Series ([employer]) 10/20/2021,02/28/2021,02/07/2021 COVID-19, MRNA-LNP, PF, 30 M CG/0.3 mL, 12 YRS AND ABOVE, IM ([facility]) 10/13/2023 Covid-19, Mrna, Lnp-s, Pf, B ivalent, 30 Mcg, IM, 12 yrs and above ([employer]) 09/12/2022 HEPATITIS B VACCINE, RECOMB, 20 MCG/ML, [...] encounter Miscellaneous Notes * Telephone Encounter - Tia Stark, PAOLO - 11/07/2024 2:26 PM EST Tre d/c to home from [facility] on 11/06/24. Nephrology was consulted for CKD stage IV. Dr. Viera recommends: (1) CKD (chronic kidney disease), stage IV: his creatinine over the past year has ranged 2.9-4.1, most recently 2.9 late august but generally mid /low 3s. creatinine remains at baseline. mild volume overload on exam. chemistries acceptable -bmp daily -agree w/ continuing high dose torsemide, OP low dose losartan for now -daily STANDING weight pls > so ordered -1.5 L daily FR ordered -ok w/ dialysis diet for now -if MRI needed would ideally avoid use of contrast agent if feasible -strict I/O >> hospitalist to reinforce w/ floor team pls Care coordinated w/ Dr Gonzáles re fluid limit, I/O, daily weights, current meds; we are in agreement. documented in this encounter Plan of Treatment Upcoming Encounters Date Type Department Care Team (Late st Contact Info) Description 11/18/2024 2:30 PM EST [facility] [place] [facility] [address] [facility] [phone] [facility] [address] [facility] [address] 12/02/2024 2:30 PM EST Office Visit Interventional Pain Center, [facility] [address] Isis Mcrae PA-C 132 [place] [address] 12/22/2024 3:00 PM EST Office Visit Cardiology, [facility] [address] [place] [address] Rosetta Velasco CRNP [address] [facility] [place] [address] 03/13/2025 3:00 PM EDT Office Visit Nephrology, [facility] [address] [place] [address] David Jaramillo MD [address] [place] [address] 04/04/2025 2:40 PM EDT Office Visit Family [facility], [facility] [address] [facility] [place] [phone] Suman Simpson MD [address] [facility] [place] [address] 04/26/2025 3:00 PM EDT Office Visit Pulmonary Medicine, [facility] [address] [place] [address] Bradley Yepez MD [address] [place] [phone] Health Maintenance Due Date Last Done Comments [...] Agent [facility] Communication Latia Trejo Spouse Health Care Agent Care Teams Manager Aerospace Relationship Specialty Start Date End Date Suman Simpson MD [address] [place] [address] PCP - General 01/26/03 documented as of this encounter
--- OUTSIDE RECORDS SUMMARY | 2024-12-22 00:18 | External Medical Summary | Summary of Care ---
Author Name Unknown Organization [facility] Address [address] [place] [address] Phone [phone] Care Team Providers Care Dredge Lever Operator Name Role Phone Suman Simpson MD Primary Care Provider +1- [phone] Reason for Visit * Reason Onset Date Comments Test Results 11/07/2024 6MW Encounter Details Date Type Department Care Team (Late st Contact Info) Description 11/07/2024 Telephone Pulmonary Medicine, [facility] [address] [employer] [place] [address] Bradley Yepez MD [address] [facility] [id number] Test Results (6MW) Allergies Active Allergy Reactions Criticality Noted Date [...] A1c goal of less than 8.0% ([facility]) Use up to 4 [...] kidney disease not on chronic dialysis ([facility]) Take 2 tablets in [...] group B, by GOLD 2017 classification ([facility]) Take 1 Capsule by mouth 3 times a day as needed for Cough. 30 Capsule 1 08/23/20 24 Active Vitamin D3 25 MCG (1000 UT) Oral Tablet (Vitamin D3) Take 1 Tablet by mouth in the morning. 30 Tablet 5 08/24/20 24 Active Breo Ellipta 100-25 MCG/ACT Inhalation Aerosol Powder Breath ActivatedIndicati ons:COPD, group B, by GOLD 2017 classification ([facility]) Inhale 1 Puff by [...] A1c goal of less than 8.0% ([facility]) Take 1 Tablet by [...] group B, by GOLD 2017 classification ([facility]),Dyspnea and respiratory abnormalities 2.5 mg NEBULIZER PRN 08/29/2024 08/29/2025 Active Albuterol Sulfate (Proventil) (2.5 MG/3ML) 0.083% inhalation solution 2.5 mgIndications:COPD, group B, by GOLD 2017 classification ([facility]),Dyspnea and respiratory abnormalities 2.5 [...] Assessment & Plan (01/09/2022 2:18 PM EST): [facility] Triage Call: Reviewed case w/ [...] mRNA, LNP-s, No Pre serve, 2-Dose Series (Xray Im[employer]k) 10/20/2021,02/28/2021,02/07/2021 COVID-19, MRNA-LNP, PF, 30 M CG/0.3 mL, 12 YRS AND ABOVE, IM ([facility] 10/13/2023 Covid-19, Mrna, Lnp-s, Pf, B ivalent, [...] Telephone Encounter - Raven Lane LPN - 11/07/2024 8:22 AM EST ----- Message from Bradley Yepez MD sent at 11/06/2024 11:54 AM EST ----- 6 MWT shows NORMAL levels of oxygen while ambulating. No oxygen therapy ordered. Chart Note documented in this encounter Plan of Treatment Upcoming Encounters Date Type Department Care Team (Late st Contact Info) Description 11/18/2024 2:30 PM EST Anticoagulation Pharmacy, [address] [facility] [place] [address] [facility] [address] 12/02/2024 2:30 PM EST Office Visit Interventional Pain Center, [facility] [address] [employer] [place] [address] Isis Mcrae PA-C [address] [facility] [place] [address] 12/22/2024 3:00 PM EST Office Visit Cardiology, [facility] [address] Rosetta Velasco CRNP [address] [place] [address] 03/13/2025 3:00 PM EDT Office Visit Nephrology, [facility] [address] [facility] [place] [address] David Jaramillo MD [address] [facility] [place] [address] 04/04/2025 2:40 PM EDT Office Visit [facility] [id number] Suman Simpson MD [address] [facility] [address] 04/26/2025 3:00 PM EDT Office Visit Pulmonary Medicine, [facility] [address] Bradley Yepez MD [address] [facility] [place] [address] Health Maintenance Due Date Last Done Comments [...] on File Name Relationship Healthcare Agent [facility] Communication Latia Robles Ignacioderrick Spouse Health Care Agent Care Teams Dredge Lever Operator Relationship Specialty Start Date End Date Suman Simpson MD [address] [place] [address] PCP - General 01/26/03 documented as of this encounter
--- OUTSIDE RECORDS SUMMARY | 2024-12-22 00:18 | External Medical Summary | Summary of Care ---
Author Name Unknown Organization [facility] Address [address] [place] [address] Phone [phone] Care Team Providers Care Manager State Name Role Phone Suman Simpson MD Primary Care Provider +1- [phone] Reason for Visit * Reason Onset Date Comments Test Results 11/07/2024 6MW Encounter Details Date Type Department Care Team (Late st Contact Info) Description 11/07/2024 Telephone Pulmonary Medicine, [facility] 132 [facility] [place] [address] Bradley Yepez MD [address] [facility] [id number] Test Results (6MW) Allergies Active Allergy Reactions [...] ons:COPD, group B, by GOLD 2017 classification ([facility]ORT [...] Assessment & Plan (01/09/2022 2:18 PM EST): [facility] Triage Call: Reviewed case w/ [...] stage renal disease 01/27/2023 08/24/2023 Atherosclerosis of 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 09/13/2021 [...] mRNA, LNP-s, No Pre serve, 2-Dose Series (ipvive) 10/20/2021,02/28/2021,02/07/2021 COVID-19, MRNA-LNP, PF, 30 M CG/0.3 mL, 12 YRS AND ABOVE, IM ([facility] 10/13/2023 Covid-19, Mrna, Lnp-s, Pf, B ivalent, [...] EST Anticoagulation Pharmacy, [address] [facility] [place] [address] [facility] [address] 12/02/2024 2:30 PM EST Office Visit Interventional Pain Center, [facility] 132 [facility] [place] [address] Isis Mcrae PA-C [address] [facility] [place] [address] 12/22/2024 3:00 PM EST Office Visit Cardiology, [facility] [address] [facility] [address] Rosetta Velasco CRNP [address] [place] [address] 03/13/2025 3:00 PM EDT Office Visit Nephrology, [facility] [address] [place] [address] David Jaramillo MD [address] [place] [address] 04/04/2025 2:40 PM EDT Office Visit [facility] [address] [facility] [phone] Suman Simpson MD [address] [facility] [place] [address] 04/26/2025 3:00 PM EDT Office Visit Pulmonary Medicine, [facility] [address] [facility] [place] [address] Bradley Yepez MD [address] [facility] [place] [address] Health Maintenance Due Date Last Done Comments [...] Healthcare Agent [facility] Communication Latia Robles Ignacioderrick Spouse Health Care Agent Care Teams Manager State Relationship Specialty Start Date End Date Suman Simpson MD [address] [place] [address] PCP - General 01/26/03 documented as of this encounter
[2024-12-22] MEDS ORDERED: GLUCAGON FOR INJ 1 MG VIAL SQ PRN (00:34)
[2024-12-22] MEDS ORDERED: DEXTROSE 50% 50 ML SYRINGE IV PRN (00:34)
[2024-12-22] MEDS ORDERED: GLUCOSE 10 TAB/TUBE PO PRN (00:34)
[2024-12-22] MEDS ORDERED: CARBOHYDRATES FOR HYPOGLYCEMIA PO PRN (00:34)
[2024-12-22] MEDS ORDERED: GLUCOSE 40% GEL 15 GM TUBE PO PRN (00:34)
--- NOTE | 2024-12-22 00:46 | CT Scan Report ---
Exam(s): CT EXTREMITY RIGHT LOWER Without Contrast EXAM: CT Right Lower Extremity Without Intravenous Contrast CLINICAL HISTORY: Reason for exam: swelling, wound. TECHNIQUE: Axial computed tomography images of the right lower extremity without intravenous contrast. CTDI is 24.91 mGy and DLP is 1240.77 mGy-cm. Automated exposure control was utilized for the study. A dose lowering technique was utilized adhering to the principles of ALARA. COMPARISON: Same day right tib-fib radiographs FINDINGS: Bones/joints: Right knee arthroplasty. No acute fracture or dislocation identified. Soft tissues: Diffuse soft tissue swelling of fat stranding which may represent edema. Cellulitis is not excluded. Vasculature: Vascular calcifications. IMPRESSION: Diffuse soft tissue swelling of fat stranding which may represent edema. Cellulitis is not excluded. Electronically signed by: Perfecto Garcia M.D. 12/22/24 00:45 AM
[2024-12-22] MEDS: INSULIN ASPART PER UNIT CHARGE SC SCH (01:06)
[2024-12-22] MEDS ORDERED: DAPTOmycin 325 MG in SYRINGE 0 ML IV SCH (06:00)
[2024-12-22] MEDS: LEVOTHYROXINE SODIUM 88 MCG TABLET PO SCH (06:20)
[2024-12-22 07:43] LABS: Basophils # (auto) 0.04 K/uL (0.00-0.20); Basophils % (auto) 0.4 %; Eosinophils # (auto) 0.09 K/uL (0.00-0.50); Eosinophils % (auto) 0.9 %; Hematocrit (blood only) 29.2 % (42.0-52.0); Hemoglobin 9.2 g/dl (14.0-18.0); Immature Granulocytes # (auto) 0.07 K/uL (0.01-0.20); Immature Granulocytes % (auto) 0.7 %; Lymphocytes # (auto) 0.79 K/uL (1.20-3.40); Lymphocytes % (auto) 7.5 %; Mean Corpuscular Hemoglobin 27.8 pg (25.0-34.0); Mean Corpuscular Hgb Conc 31.5 g/dL (32.0-36.0); Mean Corpuscular Volume 88.2 fL (80.0-100.0); Mean Platelet Volume 10.5 fL (9.4-12.4); Monocytes # (auto) 0.71 K/uL (0.11-0.59); Monocytes % (auto) 6.8 %; Neutrophils # (auto) 8.79 K/uL (1.40-6.50); Neutrophils % (auto) 83.7 %; Platelet Count 107 K/uL (130-400); RDW Coefficient of Variation 17.6 % (11.5-14.5); RDW Standard Deviation 57.2 fL (36.4-46.3); Red Blood Count 3.31 M/uL (4.70-6.10); White Blood Count 10.49 K/ul (4.8-10.8)
[2024-12-22 08:00] LABS: BUN Creatinine Ratio 22.8 (10-20); Calcium 8.8 mg/dl (8.6-10.3); Creatinine Clr Calc Pharmacy 16.4 ml/min; Potassium 3.7 mmol/L (3.5-5.1)
[2024-12-22 08:12] LABS: INR 2.2 (0.9-1.1)
[2024-12-22] MEDS: FLUTICASONE/VILANTEROL 100/25MCG 14 PUFFS/INHALER INH SCH (09:49)
[2024-12-22] MEDS: CEFEPIME 1000MG 1,000 MG/10 ML SYR IV SCH (09:49)
[2024-12-22] MEDS: PANTOprazole 40 MG TAB PO SCH (09:49)
[2024-12-22] MEDS: allopurinoL 100 MG TAB PO SCH (09:50)
[2024-12-22] MEDS: DOXYCYCLINE HYCLATE 100 MG CAP PO SCH (09:51)
[2024-12-22] MEDS: GABAPENTIN 100 MG CAP PO SCH (09:51)
[2024-12-22] MEDS: SACCHAROMYCES BOULARDII 250 MG CAP PO SCH (09:52)
[2024-12-22] MEDS: TAMSULOSIN HCL 0.4 MG CAP PO SCH (09:52)
[2024-12-22] MEDS: MULTIVITAMIN TAB PO SCH (09:52)
--- NOTE | 2024-12-22 12:35 | Hospitalist Progress Note ---
Date of Service December 22, 2024 Assessment & Plan (1) Fever: (2) Venous stasis ulcers of both lower extremities: (3) Type 2 diabetes mellitus: (4) Atrial fibrillation: (5) Hypertension: (6) COPD (chronic obstructive pulmonary disease): (7) Chronic heart failure with preserved ejection fraction (HFpEF): (8) CAD (coronary artery disease): Plan Patient is an 84 year old male with PMHx significant for HTN, atrial fibrillation anticoagulated on warfarin, chronic HFpEF, DM II, previous history CKD V on HD and now current CKD IV no longer on HD, CAD, COPD, hypothyroidism, chronic thrombocytopenia, BENI, ABRAN on 2.5L oxygen at bedtime, gout, history amputation left second toe who presented to the ER with concern for wound to right lower leg. Sepsis Lower extremity wounds Secondary to infected RLE wound History of venous stasis Failed outpatient treatment Cultures obtained-blood and wound Cx, follow XR tib fib unremarkable CT RLE noting cellulitis cannot be ruled out Wound nurse consult Continue with IV Cefepime and doxycycline Acute hypoxic respiratory failure Shortness of breath hx chronic COPD ABRAN status post surgery/nocturnal hypoxemia on home O2 at night Underlying pulmonary hypertension chest xray noting infiltrate vs atelectasis Neb treatment as needed SOB/wheezing Oxygen supplementation as needed On Cefepime and doxycycline as noted above Continue to monitor A-fib on metoprolol and Coumadin INR currently therapeutic Continue to monitor Diastolic Heart Failure Noted on echo from 2022 Pt with lower extremity edema Will defer on diuresis in setting of severe CKD CKD creatinine at baseline, past history of dialysis as per records previous history CKD V on HD and now current CKD IV no longer on HD Cr of 3.92 on admission, at baseline Continue to monitor Other Chronic Medical porblems: Valvular heart disease (mild AR/TR) DM2 on oral medications, reasonable control as of recent hemoglobin A1c of 7.07 September 2024 Hypothyroidism, euthyroid as of recent outpatient TSH GERD on PPI Rheumatoid arthritis Chronic anemia, hemoglobin at baseline Diet: HH/DMII DVT prophylaxis: on coumadin Dispo: per recs of PT/OT Admission and Anticipated Discharge Date Admission Date: December 21, 2024 Subjective Pt was seen in the AM while still down in the ED Left arm in sling Denies fevers chills or night sweats Notes his lower extremities are frequently infected Review of Systems Review of Systems: All systems reviewed & are unremarkable except as noted in Subjective Physical Exam Physical Exam: General: Alert, oriented. No acute distress Skin: RLE with skin sloughing and noted drainage, LLE with noted chronic skin changes and erythema Psych: Appropriate mood and affect Neuro: hearing loss, difficulty with movements in the bed HEENT: NC/AT CV: irregular Resp: no increased effort of breathing Abdomen: Soft, nontender Extremities:RLE with skin sloughing and noted drainage, LLE with noted chronic skin changes and erythema Results & Data Results & Data Vital Signs (Past 12 Hours) Vital Signs Pulse Pulse Resp BP BP Pulse Ox Pulse Ox 12/22/24 10:03 78 20 95 12/22/24 10:00 142/75 H 12/22/24 10:00 142/75 H 12/22/24 09:57 100 H 20 94 12/22/24 09:30 135/83 12/22/24 09:18 12 94 12/22/24 09:06 82 12 100 12/22/24 08:30 108/59 L 12/22/24 08:30 108/59 L 12/22/24 08:18 67 17 100 12/22/24 08:03 65 17 100 12/22/24 08:00 141/85 H 12/22/24 08:00 141/85 H 12/22/24 07:45 66 13 100 12/22/24 07:31 129/70 12/22/24 07:31 129/70 12/22/24 07:26 69 12/22/24 07:12 62 21 100 12/22/24 07:00 114/60 12/22/24 06:30 105/83 12/22/24 06:15 61 20 100 12/22/24 06:06 60 19 98 12/22/24 06:00 109/61 12/22/24 06:00 109/61 12/22/24 06:00 109/61 12/22/24 05:39 65 20 99 12/22/24 05:30 63 23 99 12/22/24 05:15 59 L 19 100 12/22/24 05:03 63 22 100 12/22/24 05:00 111/65 12/22/24 05:00 111/65 12/22/24 05:00 111/65 12/22/24 04:54 62 20 99 12/22/24 04:48 59 L 19 99 12/22/24 04:30 104/59 L 12/22/24 04:24 63 22 100 12/22/24 04:21 69 24 99 12/22/24 04:15 68 19 100 12/22/24 03:54 61 21 100 12/22/24 03:42 57 L 18 99 12/22/24 03:33 60 21 98 12/22/24 03:30 100/72 12/22/24 03:21 60 23 96 12/22/24 03:12 60 20 100 12/22/24 03:03 62 19 99 12/22/24 03:00 99/52 L 12/22/24 02:54 68 17 99 12/22/24 02:42 69 18 99 12/22/24 02:33 64 21 100 12/22/24 02:30 100/55 L 12/22/24 02:30 100/55 L 12/22/24 02:22 67 16 109/62 98 12/22/24 02:18 66 24 99 12/22/24 02:03 68 28 H 98 12/22/24 02:00 109/62 12/22/24 01:57 75 26 H 100 12/22/24 01:54 70 20 100 12/22/24 01:30 98/58 L 12/22/24 01:30 98/58 L 12/22/24 01:30 62 28 H 100 12/22/24 01:24 67 21 100 12/22/24 01:00 101/64 12/22/24 01:00 79 21 98 12/22/24 01:00 77 20 101/64 98 12/22/24 01:00 99 12/22/24 00:51 82 24 98 12/22/24 00:48 88 21 98 12/22/24 00:38 94 H O2 Del Method O2 Del Method O2 Flow Rate O2 Flow Rate 12/22/24 10:03 12/22/24 10:00 12/22/24 10:00 12/22/24 09:57 12/22/24 09:30 12/22/24 09:18 12/22/24 09:06 12/22/24 08:30 12/22/24 08:30 12/22/24 08:18 12/22/24 08:03 12/22/24 08:00 12/22/24 08:00 12/22/24 07:45 12/22/24 07:31 12/22/24 07:31 12/22/24 07:26 12/22/24 07:12 12/22/24 07:00 12/22/24 06:30 12/22/24 06:15 12/22/24 06:06 12/22/24 06:00 12/22/24 06:00 12/22/24 06:00 12/22/24 05:39 12/22/24 05:30 12/22/24 05:15 12/22/24 05:03 12/22/24 05:00 12/22/24 05:00 12/22/24 05:00 12/22/24 04:54 12/22/24 04:48 12/22/24 04:30 12/22/24 04:24 12/22/24 04:21 12/22/24 04:15 12/22/24 03:54 12/22/24 03:42 12/22/24 03:33 12/22/24 03:30 12/22/24 03:21 12/22/24 03:12 12/22/24 03:03 12/22/24 03:00 12/22/24 02:54 12/22/24 02:42 12/22/24 02:33 12/22/24 02:30 12/22/24 02:30 12/22/24 02:22 Nasal Cannula 3 12/22/24 02:18 12/22/24 02:03 12/22/24 02:00 12/22/24 01:57 12/22/24 01:54 12/22/24 01:30 12/22/24 01:30 12/22/24 01:30 12/22/24 01:24 12/22/24 01:00 12/22/24 01:00 12/22/24 01:00 Nasal Cannula 2 12/22/24 01:00 Nasal Cannula 2 12/22/24 00:51 12/22/24 00:48 12/22/24 00:38 Diagnostic Findings Tibia/Fibula X-Ray 12/21/24 17:39 EXAMINATION: X-ray tibia fibula right 2 view CLINICAL HISTORY: Infection mid tibia PRIORS: None TECHNIQUE: A total knee arthroplasty is present with near anatomic alignment. Moderate diffuse edema present throughout the visualized lower leg in the [id number]. FINDINGS: No periprosthetic fracture or lucency. The tibial cortex is unremarkable with no periosteal reaction or erosion. No fracture or dislocation. Fibula is unremarkable. Vascular atherosclerotic disease noted. No subcutaneous gas or radiopaque foreign body. IMPRESSION: Subcutaneous edema/swelling with no plain film evidence of a underlying osseous abnormality. Electronically signed by Sheila Hanna 12-21-2024 6:06 PM Chest X-Ray 12/21/24 19:53 Exam(s): XR CXR 1 VIEW EXAM: XR Chest, 1 View CLINICAL HISTORY: Reason for exam: sob. renal failure. TECHNIQUE: Frontal view of the chest. COMPARISON: X-ray January 19, 2023 FINDINGS: Lungs: Interstitial and airspace opacity in the left upper lobe, atelectasis versus infiltrate. The right lung is clear. Pleural space: No pleural effusion. No pneumothorax. Heart: Unremarkable. No cardiomegaly. IMPRESSION: Interstitial and airspace opacity in the left upper lobe, atelectasis versus infiltrate. The right lung is clear. Electronically signed by: Bert Peña MD 12/21/24 20:[address] 12/21/24 20:35 Exam(s): CT EXTREMITY RIGHT LOWER Without Contrast EXAM: CT Right Lower Extremity Without Intravenous Contrast CLINICAL HISTORY: Reason for exam: swelling, wound. TECHNIQUE: Axial computed tomography images of the right lower extremity without intravenous contrast. CTDI is 24.91 mGy and DLP is 1240.77 mGy-cm. Automated exposure control was utilized for the study. A dose lowering technique was utilized adhering to the principles of ALARA. COMPARISON: Same day right tib-fib radiographs FINDINGS: Bones/joints: Right knee arthroplasty. No acute fracture or dislocation identified. Soft tissues: Diffuse soft tissue swelling of fat stranding which may represent edema. Cellulitis is not excluded. Vasculature: Vascular calcifications. IMPRESSION: Diffuse soft tissue swelling of fat stranding which may represent edema. Cellulitis is not excluded. Electronically signed by: Perfecto Garcia M.D. 12/22/24 00:45 AM
[2024-12-22] MEDS: WARFARIN SOD 2.5 MG TAB PO SCH (18:37)
[2024-12-22] MEDS: WARFARIN SOD 5 MG TAB PO SCH ×2 (19:26→20:15)
[2024-12-22] MEDS: traMADol HCL 50 MG TABLET PO PRN (20:30)
[2024-12-23 05:58] LABS: Basophils # (auto) 0.05 K/uL (0.00-0.20); Basophils % (auto) 0.5 %; Eosinophils # (auto) 0.28 K/uL (0.00-0.50); Eosinophils % (auto) 2.7 %; Hematocrit (blood only) 31.2 % (42.0-52.0); Hemoglobin 9.8 g/dl (14.0-18.0); Immature Granulocytes # (auto) 0.09 K/uL (0.01-0.20); Immature Granulocytes % (auto) 0.9 %; Lymphocytes # (auto) 0.75 K/uL (1.20-3.40); Lymphocytes % (auto) 7.3 %; Mean Corpuscular Hemoglobin 27.1 pg (25.0-34.0); Mean Corpuscular Hgb Conc 31.4 g/dL (32.0-36.0); Mean Corpuscular Volume 86.2 fL (80.0-100.0); Mean Platelet Volume 11.4 fL (9.4-12.4); Monocytes # (auto) 0.72 K/uL (0.11-0.59); Neutrophils # (auto) 8.42 K/uL (1.40-6.50); Neutrophils % (auto) 81.6 %; Platelet Count 125 K/uL (130-400); RDW Coefficient of Variation 17.4 % (11.5-14.5); RDW Standard Deviation 55.5 fL (36.4-46.3); Red Blood Count 3.62 M/uL (4.70-6.10); White Blood Count 10.31 K/ul (4.8-10.8)
[2024-12-23 06:20] LABS: INR 2.1 (0.9-1.1); Prothrombin Time 21.4 Seconds (9.0-12.0)
[2024-12-23 06:22] LABS: Albumin Globulin Ratio 1.2 (0.9-2); Albumin Level 3.6 gm/dl (3.4-5.0); BUN Creatinine Ratio 23.9 (10-20); Bilirubin,Total 1.1 mg/dl (0.2-1.0); Calcium 9.7 mg/dl (8.6-10.3); Creatinine Clr Calc Pharmacy 14.7 ml/min; Globulin 2.9 gm/dl (2.5-4.0); Magnesium 1.9 mg/dl (1.7-2.4); Potassium 4.3 mmol/L (3.5-5.1); Total Protein 6.5 gm/dl (6.0-8.3)
--- NOTE | 2024-12-23 09:42 | Cardiology Consultation ---
Date of Consultation December 23, 2024 Assessment & Plan (1) Cellulitis of lower extremity: (2) CKD (chronic kidney disease), stage IV: (3) Atrial fibrillation: (4) Chronic heart failure with preserved ejection fraction (HFpEF): Plan Patient is a complex 84-year-old male admitted with febrile illness evidence of lower extremity wound infection. Cardiac concerns include longstanding persistent atrial fibrillation, prior diastolic dysfunction with preserved ejection fraction. Patient with stage IV5 renal failure with current examination with mild volume overload and edema. No acute respiratory failure with good oxygenation on 1 L nasal cannula Note outpatient records reflect significant oral diuretic dosing at torsemide 200 mg twice per day. Currently not ordered Recommendations: Resumption of diuretic dosing. Would discuss with nephrology may need to add additional IV dose No profound pulmonary edema. Treat underlying infectious process Atrial fibrillation rates well-controlled. Continue warfarin and metoprolol No further cardiac recommendations History of Present Illness Reason for Consultation: Edema ,respiratory failure Requesting Physician: Dharmesh hospitalist Attending Physician: Esperanza Alvarez MD History of Present Illness Patient is an 84-year-old male with complex history which includes chronic atrial fibrillation, chronic obstructive lung disease with nocturnal oxygen supplementation, CKD stage IV with prior dialysis, diabetes mellitus. Chart diagnosis of diastolic heart failure. Patient with difficulties with chronic edema and nonhealing lower extremity wounds. Referred this admission due to lower extremity wound infection. Per report patient febrile on initial presentation Clinical history notable for a mechanical fall in October with left arm Humeral fracture managed conservatively Currently denies any acute cardiac complaints. Notes no chest pains tachypalpitations, dizziness or lightheadedness. Does note some mild breathlessness with activity no productive cough. No bleeding difficulties. No history of TIA or stroke. Good oxygen saturations currently on 1 L nasal cannula Chest x-ray with possible infiltrate mild increase in vascular markings Currently not receiving dialysis Echocardiogram per results below of 01/26/2024 No EKG this admission Allergies Allergy/AdvReac Type Severity Reaction Status Date / Time codeine Allergy Confusion Verified 12/14/24 14:09 metolazone AdvReac Severe SEVERE Verified 12/14/24 14:09 HYPONATREMIA morphine AdvReac Intermediate Hallucinati Verified 12/14/24 14:09 ons oxycodone AdvReac Intermediate Hallucinati Verified 12/14/24 14:09 ons Penicillins AdvReac Intermediate Hallucinati Verified 12/14/24 14:09 ons Home Medications Medication Instructions Recorded Confirmed Type ascorbic acid (vitamin C) 500 mg 500 mg PO QAM 07/23/21 12/21/24 History tablet (Vitamin C) gabapentin 100 mg capsule 100 mg PO BID 07/23/21 12/21/24 History glipizide 5 mg tablet 5 mg PO QAM 07/23/21 12/21/24 History isosorbide dinitrate 20 mg tablet 20 mg PO BID 07/23/21 12/21/24 History levothyroxine 88 mcg tablet 88 mcg PO QAM 07/23/21 12/21/24 History metoprolol succinate 100 mg 100 mg PO AMHS 07/23/21 12/21/24 History tablet,extended release 24 hr multivitamin 1 tab PO QAM 07/23/21 12/21/24 History pantoprazole 40 mg tablet,delayed 40 mg PO QAM 07/23/21 12/21/24 History release tamsulosin 0.4 mg capsule 0.4 mg PO QAM 07/23/21 12/21/24 History torsemide 100 mg tablet 200 mg PO BID 09/12/21 12/21/24 History fluticasone furoate 100 1 inh inhalation DAILY 09/02/23 12/21/24 History mcg-vilanterol 25 mcg/dose inhalation powder (Breo Ellipta) albuterol sulfate 0.63 mg/3 mL 0.63 mg inhalation Q6H PRN 11/03/24 12/21/24 History solution for nebulization Shortness Of Breath Or Wheezing allopurinol 100 mg tablet 50 mg PO DAILY 11/03/24 12/21/24 History cholecalciferol (vitamin D3) 25 25 mcg PO DAILY 11/03/24 12/21/24 History mcg (1,000 unit) tablet losartan 25 mg tablet 25 mg PO DAILY 11/03/24 12/21/24 History Saccharomyces boulardii 250 mg 250 mg PO DAILY #30 caps 11/06/24 12/21/24 Rx capsule warfarin 2.5 mg tablet 2.5 mg PO UD 12/06/24 12/21/24 History Patient History Medical History Sepsis CKD (chronic kidney disease), stage IV on hemodialysis in the past History of acute prostatitis Rheumatoid arthritis Per PCP records ABRAN (obstructive sleep apnea) Per PCP records A-V fistula lt side; did not start dialysis yet Thrombocytopenia Chronic, baseline low 100s per chart review Deaf Left Chronic back pain GERD (gastroesophageal reflux disease) BPH (benign prostatic hyperplasia) Surgical History History of repair of rotator cuff Left History of carpal tunnel release R/L History of total knee replacement R/L Fusion of spine Neck Fusion of spine Lumbar History of colonoscopy History of cardiac cath 2010 > no stents >[facility] Nausea and vomiting after administration of anesthetic agent Family History Mother Cancer Other Family history non-contributory Social History Smoking Status: Never smoker Second Hand Exposure: Yes (hx at work); Do You Dip or Chew Tobacco: No; Hx Alcohol Use: No Hx Substance Use: No Preferred Language: Syriac Communication Ability: Effective Infant Nanny Required: No Beliefs That Will Affect Care: None marital status: Current Living Situation: Spouse Current Living Situation Comment: lives w/ and daughter, Juliana Other Information That Helps Us Care for You: No Feels Safe at Home: Yes Diet: low salt Assistive Devices: Cane and Walker Review of Systems Review of Systems: All systems reviewed & are unremarkable except as noted in HPI & below Physical Exam Constitutional: + ill appearing (Chronically); no acute distress Eyes: PERRL, conjunctivae normal, anicteric sclerae Neck: trachea midline, no thyromegaly Respiratory: Auscultation: + diminished lung sounds Cardiovascular: Rate/Rhythm: + irregularly irregular Heart Sounds: normal S1, normal S2 and + murmur (Grade 1/6 systolic murmur, no diastolic) Vessels: no JVD Extremities: + edema Gastrointestinal (Abdomen): normal bowel sounds, soft, nontender, no hepatosplenomegaly Skin: Left arm in sling Results & Data Vital Signs (Past 12 Hours) Vital Signs Temp Pulse Pulse Resp BP Pulse Ox O2 Del Method 12/23/24 08:14 36.6 C 76 18 137/77 97 Nasal Cannula 12/23/24 07:24 64 12/23/24 03:54 36.8 C 79 18 125/67 97 Nasal Cannula 12/22/24 22:54 36.8 C 76 18 122/66 97 Nasal Cannula 12/22/24 22:00 90 O2 Flow Rate 12/23/24 08:14 1 12/23/24 07:24 12/23/24 03:54 2 12/22/24 22:54 2 12/22/24 22:00 Laboratory Results Laboratory Results - last 24 hr 12/22/24 12/22/24 12/22/24 11:53 17:56 20:34 WBC RBC Hgb Hct MCV MCH MCHC RDW Std Deviation RDW Coeff of Yanira Plt Count MPV Immature Gran % (Auto) Neut % (Auto) Lymph % (Auto) [place] % (Auto) Eos % (Auto) Baso % (Auto) Neut # (Auto) Lymph # (Auto) [place] # (Auto) Eos # (Auto) Baso # (Auto) Immature Gran # (Auto) PT INR Sodium Potassium Chloride Carbon Dioxide Anion Gap BUN Creatinine Est Cr Clr Drug Dosing eGFR BUN/Creatinine Ratio Glucose POC Glucose 147 H 155 H 202 H Calcium Phosphorus Magnesium Total Bilirubin AST ALT Alkaline Phosphatase Total Protein Albumin Globulin Albumin/Globulin Ratio 12/23/24 12/23/24 05:26 08:05 WBC 10.31 RBC 3.62 L Hgb 9.8 L Hct 31.2 L MCV 86.2 MCH 27.1 MCHC 31.4 L RDW Std Deviation 55.5 H RDW Coeff of Yanira 17.4 H Plt Count 125 L MPV 11.4 Immature Gran % (Auto) 0.9 Neut % (Auto) 81.6 Lymph % (Auto) 7.3 Estill % (Auto) 7.0 Eos % (Auto) 2.7 Baso % (Auto) 0.5 Neut # (Auto) 8.42 H Lymph # (Auto) 0.75 L Estill # (Auto) 0.72 H Eos # (Auto) 0.28 Baso # (Auto) 0.05 Immature Gran # (Auto) 0.09 PT 21.4 H INR 2.1 H Sodium 132 L Potassium 4.3 Chloride 99 Carbon Dioxide 23 Anion Gap 10 BUN 101 H Creatinine 4.22 H D Est Cr Clr Drug Dosing 14.7 eGFR 13.27 BUN/Creatinine Ratio 23.9 H Glucose 114 H POC Glucose 111 H Calcium 9.7 Phosphorus 4.0 Magnesium 1.9 Total Bilirubin 1.1 H AST 22 ALT 18 Alkaline Phosphatase 128 H Total Protein 6.5 Albumin 3.6 Globulin 2.9 Albumin/Globulin Ratio 1.2 Diagnostic Findings Echocardiogram 01/26/2024 The LV wall thickness is mildly increased (concentric). The left ventricular wall motion is normal. The qualitative LV ejection fraction is 55-59% (normal). The left atrium is severely enlarged. Mild aortic valve regurgitation is present. Mild tricuspid regurgitation is present. The aortic root is mildly enlarged, 3.9 cm. The proximal ascending thoracic aorta is mildly enlarged, 4.3 cm. The estimated pulmonary artery systolic pressure is 39 mm Hg (1) Cellulitis of lower extremity Laterality: right Qualified Code(s): L03.115 - Cellulitis of right lower limb
[2024-12-23] MEDS: TORSEMIDE 100 MG TAB PO SCH (11:40)
--- NOTE | 2024-12-23 11:43 | Nephrology Consultation ---
Date of Consultation December 23, 2024 Assessment & Plan (1) CKD (chronic kidney disease) stage 5, GFR less than 15 ml/min: he has known CKD 4 to stage 5 secondary to longstanding diabetes/hypertension with nephrotic range proteinuria previously on hemodialysis but then taken off after partial recovery and because of his preference. he does get into significant fluid retention from CKD. His cardiac status is not really that bad and fluid retention is predominantly CKD related. he has a very high obligatory need of diuretics and he has been on torsemide 200 twice daily for significant time. metolazone has caused severe profound hyponatremia in the past as well as electrolyte imbalance and has not been used since then. However I am not 100% sure that patient is actually taking the torsemide as prescribed either intentionally or by confusion. during my last visit in June 2024 he did not have significant edema. When he is taking the diuretics as prescribed typically he does not have edema (2) SAM (acute kidney injury): his baseline creatinine is hard to pinpoint but anything in the high threes and low 4s would be regarded as within his range. also worth noting that when he gets severe fluid retention there is some hemodilution causing falsely lower creatinine than real. at this point I would say this is predominantly CKD 5 with significant fluid retention (3) Diabetic ulcer of toe of right foot: (4) Venous stasis ulcers of both lower extremities: (5) Kidney disease with fluid retention: significant fluid retention with bilateral lower extremity edema causing skin breakdown ulcer and now infection which needs to be tackled with both antibiotics as well as diuretics. For the time being we would use Lasix 100 mg IV q.8 hours. I did explain to him that we may need to put a Melendez catheter for convenience and accurate input output measurement. We will be doing daily labs for monitoring Plan Case complexity high total time spent was 62 minute Supervising Physician Co-Signing Physician Notes History of Present Illness Reason for Consultation: SAM on CKD 5 with fluid retnetion Attending Physician: Esperanza Alvarez MD History of Present Illness 84-year-old male with CKD stage 4 to stage 5 with nephrotic range proteinuria secondary to longstanding diabetes/hypertension previously on hemodialysis with a baseline creatinine usually in the high threes and low 4s. he was taken of dialysis because of somewhat partial renal recovery as well as his preference. His other medical problems includes HTN, atrial fibrillation anticoagulated on warfarin, chronic HFpEF, DM II, previous history CKD V on HD and now current CKD IV no longer on HD, CAD, COPD, hypothyroidism, chronic thrombocytopenia, BENI, ABRAN on 2.5L oxygen at bedtime, gout, history amputation left second toe when he takes his torsemide as prescribed he used usually almost edema free. in my last visit June 2024 he was edema free. He presented to the hospital 2 days ago with increased lower extremity edema as well as ulcers and skin breakdown with greenish discharge. currently his lower extremity wounds are bandaged. He is on IV cefepime and oral doxycycline. creatinine was 3.9-2 days ago and today is 4.21. He has not received any diuretics while in the hospital. at home he is supposed to be on torsemide 200 twice daily. It is worth noting that metolazone has been tried multiple times in the past on every single time he has profound critical hyponatremia as well as other electrolyte problems. however I am not 100% sure that patient was taking torsemide as prescribed--- either knowingly or by confusion. he does not feel significantly worse from breathing standpoint although at baseline he is very sedentary. blood pressure appears to be acceptable. review of systems at appears to be at baseline but his baseline health status is pretty poor. Reports some shortness of breath and increased lower extremity edema as well as skin breakdown with ulcers and foul-smelling discharge. he also has some pain in his left shoulder area were he sustained fracture in October after fall. otherwise 12 systems reviewed and negative Allergies Allergy/AdvReac Type Severity Reaction Status Date / Time codeine Allergy Confusion Verified 12/14/24 14:09 metolazone AdvReac Severe SEVERE Verified 12/14/24 14:09 HYPONATREMIA morphine AdvReac Intermediate Hallucinati Verified 12/14/24 14:09 ons oxycodone AdvReac Intermediate Hallucinati Verified 12/14/24 14:09 ons Penicillins AdvReac Intermediate Hallucinati Verified 12/14/24 14:09 ons Home Medications Medication Instructions Recorded Confirmed Type ascorbic acid (vitamin C) 500 mg 500 mg PO QAM 07/23/21 12/21/24 History tablet (Vitamin C) gabapentin 100 mg capsule 100 mg PO BID 07/23/21 12/21/24 History glipizide 5 mg tablet 5 mg PO QAM 07/23/21 12/21/24 History isosorbide dinitrate 20 mg tablet 20 mg PO BID 07/23/21 12/21/24 History levothyroxine 88 mcg tablet 88 mcg PO QAM 07/23/21 12/21/24 History metoprolol succinate 100 mg 100 mg PO AMHS 07/23/21 12/21/24 History tablet,extended release 24 hr multivitamin 1 tab PO QAM 07/23/21 12/21/24 History pantoprazole 40 mg tablet,delayed 40 mg PO QAM 07/23/21 12/21/24 History release tamsulosin 0.4 mg capsule 0.4 mg PO QAM 07/23/21 12/21/24 History torsemide 100 mg tablet 200 mg PO BID 09/12/21 12/21/24 History fluticasone furoate 100 1 inh inhalation DAILY 09/02/23 12/21/24 History mcg-vilanterol 25 mcg/dose inhalation powder (Breo Ellipta) albuterol sulfate 0.63 mg/3 mL 0.63 mg inhalation Q6H PRN 11/03/24 12/21/24 History solution for nebulization Shortness Of Breath Or Wheezing allopurinol 100 mg tablet 50 mg PO DAILY 11/03/24 12/21/24 History cholecalciferol (vitamin D3) 25 25 mcg PO DAILY 11/03/24 12/21/24 History mcg (1,000 unit) tablet losartan 25 mg tablet 25 mg PO DAILY 11/03/24 12/21/24 History Saccharomyces boulardii 250 mg 250 mg PO DAILY #30 caps 11/06/24 12/21/24 Rx capsule warfarin 2.5 mg tablet 2.5 mg PO UD 12/06/24 12/21/24 History Patient History Medical History Sepsis CKD (chronic kidney disease), stage IV on hemodialysis in the past History of acute prostatitis Rheumatoid arthritis Per PCP records ABRAN (obstructive sleep apnea) Per PCP records A-V fistula lt side; did not start dialysis yet Thrombocytopenia Chronic, baseline low 100s per chart review Deaf Left Chronic back pain GERD (gastroesophageal reflux disease) BPH (benign prostatic hyperplasia) Surgical History History of repair of rotator cuff Left History of carpal tunnel release R/L History of total knee replacement R/L Fusion of spine Neck Fusion of spine Lumbar History of colonoscopy History of cardiac cath 2010 > no stents >[facility] Nausea and vomiting after administration of anesthetic agent Family History Mother Cancer Other Family history non-contributory Social History Smoking Status: Never smoker Second Hand Exposure: Yes (hx at work); Do You Dip or Chew Tobacco: No; Hx Alcohol Use: No Hx Substance Use: No Preferred Language: Zimbabwean Communication Ability: Effective Database Marketing Specialist Required: No Beliefs That Will Affect Care: None marital status: Current Living Situation: Spouse Current Living Situation Comment: lives w/ and daughter, Juliana Other Information That Helps Us Care for You: No Feels Safe at Home: Yes Diet: low salt Assistive Devices: Cane and Walker Results & Data Vital Signs (Past 12 Hours) Vital Signs Temp Pulse Pulse Resp BP Pulse Ox O2 Del Method 12/23/24 09:32 Nasal Cannula 12/23/24 08:14 36.6 C 76 18 137/77 97 Nasal Cannula 12/23/24 07:24 64 12/23/24 03:54 36.8 C 79 18 125/67 97 Nasal Cannula O2 Flow Rate 12/23/24 09:32 2.5 12/23/24 08:14 1 12/23/24 07:24 12/23/24 03:54 2
[2024-12-23] MEDS: FUROSEMIDE 40 MG/4 ML VIAL IV SCH (12:20)
[2024-12-23] MEDS: POTASSIUM CHLORIDE CRTAB 20 MEQ TABCR PO SCH (12:47)
--- NOTE | 2024-12-23 13:26 | Electrocardiogram Report ---
Test Reason : Blood Pressure : */* mmHG Vent. Rate : 101 BPM Atrial Rate : * BPM P-R Int : * ms QRS Dur : 90 ms QT Int : 324 ms P-R-T Axes : * 63 48 degrees QTcB Int : 420 ms Atrial fibrillation with rapid ventricular response with premature ventricular or aberrantly conducte d complexes Low voltage QRS Abnormal ECG When compared with ECG of 03-Nov-2024 16:53, Vent. rate has increased by 36 bpm Borderline criteria for Inferior infarct are no longer Present Nonspecific T wave abnormality, improved in Inferior leads Confirmed by Dimitri Easton ([id number]) on 12/23/2024 1:26:27 PM Referred By: REFERRED SELF Confirmed By: Dimitri Easton
--- NOTE | 2024-12-23 13:57 | Hospitalist Progress Note ---
Date of Service December 23, 2024 Assessment & Plan (1) Fever: (2) Venous stasis ulcers of both lower extremities: (3) Type 2 diabetes mellitus: (4) Atrial fibrillation: (5) Hypertension: (6) COPD (chronic obstructive pulmonary disease): (7) Chronic heart failure with preserved ejection fraction (HFpEF): (8) CAD (coronary artery disease): Plan Patient is an 84 year old male with PMHx significant for HTN, atrial fibrillation anticoagulated on warfarin, chronic HFpEF, DM II, previous history CKD V on HD and now current CKD IV no longer on HD, CAD, COPD, hypothyroidism, chronic thrombocytopenia, BENI, ABRAN on 2.5L oxygen at bedtime, gout, history amputation left second toe who presented to the ER with concern for wound to right lower leg. Sepsis Cellulitis Lower extremity wounds Secondary to infected RLE wound History of venous stasis Failed outpatient treatment Wound culture currently growing pseudomonas Blood cultures NGTD XR tib fib unremarkable CT RLE noting cellulitis cannot be ruled out Wound nurse consult Continue with IV Cefepime and doxycycline Consider ID consult Acute hypoxic respiratory failure Dyspnea on exertion Pulmonary HTN hx chronic COPD ABRAN status post surgery/nocturnal hypoxemia on home O2 at night Underlying pulmonary hypertension chest xray noting infiltrate vs atelectasis Neb treatment as needed SOB/wheezing Oxygen supplementation as needed On Cefepime and doxycycline as noted above pulmonology consulted, appreciate recs Continue to monitor A-fib on metoprolol and Coumadin INR currently therapeutic Continue to monitor Diastolic Heart Failure Dyspnea on exertion Lower extremity swelling Noted on echo from 2022 Pt with significant lower extremity edema Will defer on diuresis in setting of severe CKD Usually on torsemide 200mg BID at home Cardiology consulted, appreciate recs Nephrology also consulted for volume/fluid management CKD creatinine at baseline, past history of dialysis as per records previous history CKD V on HD and now current CKD IV no longer on HD Cr of 3.92 on admission, at baseline Follows with Nephrology Nephrology consulted, appreciate further recs Continue to monitor Other Chronic Medical porblems: Valvular heart disease (mild AR/TR) DM2 on oral medications, reasonable control as of recent hemoglobin A1c of 7.07 September 2024 Hypothyroidism, euthyroid as of recent outpatient TSH GERD on PPI Rheumatoid arthritis Chronic anemia, hemoglobin at baseline Diet: HH/DMII DVT prophylaxis: on coumadin Dispo: PT/OT recommending rehab Admission and Anticipated Discharge Date Admission Date: December 21, 2024 Subjective pt was seen laying in bed States that he is feeling better Notes he has not been out of bed much States SOB usually when up and moving Denies fevers, chills or night sweats Daughter called in the AM and case was discussed- she notes he is missing a cardiology appt while hospitalized, concerned about his dyspnea on exertion and lower extremity swelling. Review of Systems Review of Systems: All systems reviewed & are unremarkable except as noted in Subjective Physical Exam Physical Exam: General: Alert, oriented. No acute distress Skin: RLE with skin sloughing and noted drainage, LLE with noted chronic skin changes and erythema Psych: Appropriate mood and affect Neuro: hearing loss, difficulty with movements in the bed HEENT: NC/AT CV: irregular Resp: no increased effort of breathing Abdomen: Soft, nontender Extremities:RLE with skin sloughing and noted drainage, LLE with noted chronic skin changes and erythema, +++edema Results & Data Results & Data Vital Signs (Past 12 Hours) Vital Signs Temp Pulse Pulse Resp BP Pulse Ox O2 Del Method 12/23/24 09:32 Nasal Cannula 12/23/24 08:14 36.6 C 76 18 137/77 97 Nasal Cannula 12/23/24 07:24 64 12/23/24 03:54 36.8 C 79 18 125/67 97 Nasal Cannula O2 Flow Rate 12/23/24 09:32 2.5 12/23/24 08:14 1 12/23/24 07:24 12/23/24 03:54 2 Diagnostic Findings Tibia/Fibula X-Ray 12/21/24 17:39 EXAMINATION: X-ray tibia fibula right 2 view CLINICAL HISTORY: Infection mid tibia PRIORS: None TECHNIQUE: A total knee arthroplasty is present with near anatomic alignment. Moderate diffuse edema present throughout the visualized lower leg in the [id number]. FINDINGS: No periprosthetic fracture or lucency. The tibial cortex is unremarkable with no periosteal reaction or erosion. No fracture or dislocation. Fibula is unremarkable. Vascular atherosclerotic disease noted. No subcutaneous gas or radiopaque foreign body. IMPRESSION: Subcutaneous edema/swelling with no plain film evidence of a underlying osseous abnormality. Electronically signed by Sheila Hanna 12-21-2024 6:06 PM Chest X-Ray 12/21/24 19:53 Exam(s): XR CXR 1 VIEW EXAM: XR Chest, 1 View CLINICAL HISTORY: Reason for exam: sob. renal failure. TECHNIQUE: Frontal view of the chest. COMPARISON: X-ray January 19, 2023 FINDINGS: Lungs: Interstitial and airspace opacity in the left upper lobe, atelectasis versus infiltrate. The right lung is clear. Pleural space: No pleural effusion. No pneumothorax. Heart: Unremarkable. No cardiomegaly. IMPRESSION: Interstitial and airspace opacity in the left upper lobe, atelectasis versus infiltrate. The right lung is clear. Electronically signed by: Bert Peña MD 12/21/24 20:[address] 12/21/24 20:35 Exam(s): CT EXTREMITY RIGHT LOWER Without Contrast EXAM: CT Right Lower Extremity Without Intravenous Contrast CLINICAL HISTORY: Reason for exam: swelling, wound. TECHNIQUE: Axial computed tomography images of the right lower extremity without intravenous contrast. CTDI is 24.91 mGy and DLP is 1240.77 mGy-cm. Automated exposure control was utilized for the study. A dose lowering technique was utilized adhering to the principles of ALARA. COMPARISON: Same day right tib-fib radiographs FINDINGS: Bones/joints: Right knee arthroplasty. No acute fracture or dislocation identified. Soft tissues: Diffuse soft tissue swelling of fat stranding which may represent edema. Cellulitis is not excluded. Vasculature: Vascular calcifications. IMPRESSION: Diffuse soft tissue swelling of fat stranding which may represent edema. Cellulitis is not excluded. Electronically signed by: Perfecto Garcia M.D. 12/22/24 00:45 AM
--- NOTE | 2024-12-23 14:40 | Pulmonary Consultation ---
Date of Consultation December 23, 2024 Assessment & Plan (1) Pulmonary hypertension: (2) Dyspnea: (3) Diastolic heart failure: (4) SAM (acute kidney injury): (5) Obesity: Plan Impression: 84-year-old male with chronic longstanding dyspnea admitted with lower extremity cellulitis, anasarca, and fluid overload. His shortness of breath is been chronic in nature and is likely multifactorial due to combinations of diastolic heart failure, obesity, deconditioning, etc. Recommendations: 1. Pulmonary hypertension: Suspect due to elevated LVEDP as well as potentially untreated sleep apnea. Continue diuretics. Not pursue vasodilators in this patient. Given his comorbid conditions, do not think a right heart catheterization would be beneficial however if necessary, this should be performed at a tertiary facility. 2. Dyspnea: Again multifactorial. The patient is quite sedentary at baseline which is likely contributing. Recommend that he get out of bed to chair and work on rehab. Advised him that this would likely take weeks to months to show significant improvement. Incentive spirometry may offer him some clinical benefit. 3. While the patient reports a history of COPD, his PFTs have not been overtly obstructive here and he did not respond to Breo. No indication for antibiotics from a lung standpoint or inhalers or steroids at this point in time. 4. Sleep disordered breathing: Untreated at present. This is from a sleep study performed in 2013 demonstrating at least moderate sleep apnea with an AHI of 25 and desaturations down to a malachi of 80%. This can be addressed in the outpatient setting with the [facility] sleep physicians. This is not an acute problem requiring intervention in the hospital currently. Patient's pulmonary issues at this point in time appear chronic and longstanding. No indication for additional evaluation in the acute setting. Would recommend optimization of his underlying volume status with cardiology and nephrology. He can then follow-up with his outpatient [facility] pulmonary group at discharge. He will likely need aggressive rehab. Thanks for the opportunity of just putting the care of this patient. Feel free to contact us with questions or concerns. Pulmonary will sign off at this point in time. History of Present Illness Attending Physician: Esperanza Alvarez MD History of Present Illness Asked by hospitalist to assist in evaluation management this patient with shortness of breath, pulmonary hypertension, and fluid overload. History is obtained from discussion with the patient as well as his family at bedside. Patient is an 84-year-old male who is established with the [facility] pulmonary group at [facility]. He carries a questionable history of obstructive lung d isease and has been on Breo in the outpatient setting. He is unclear if he has had PFTs performed previously. He reports a history of sleep apnea but does not use CPAP and only uses oxygen at night. His shortness of breath has been going on for almost a year. He is very sedentary at baseline and does not really move around much. According to his family he becomes winded after walking for very short distances. He does not report any cough or sputum production. He denies significant wheezing. He does have significant lower extremity edema and swelling with skin breakdown. He has been seen by cardiology and nephrology as well. He was admitted with a febrile illness and evidence of lower extremity cellulitis. He has longstanding atrial fibrillation as well as diastolic dysfunction as well as stage IV kidney failure. He was previously on dialysis and then taken off due to some recovery of kidney function and patient preference. Allergies Allergy/AdvReac Type Severity Reaction Status Date / Time codeine Allergy Confusion Verified 12/14/24 14:09 metolazone AdvReac Severe SEVERE Verified 12/14/24 14:09 HYPONATREMIA morphine AdvReac Intermediate Hallucinati Verified 12/14/24 14:09 ons oxycodone AdvReac Intermediate Hallucinati Verified 12/14/24 14:09 ons Penicillins AdvReac Intermediate Hallucinati Verified 12/14/24 14:09 ons Home Medications Medication Instructions Recorded Confirmed Type ascorbic acid (vitamin C) 500 mg 500 mg PO QAM 07/23/21 12/21/24 History tablet (Vitamin C) gabapentin 100 mg capsule 100 mg PO BID 07/23/21 12/21/24 History glipizide 5 mg tablet 5 mg PO QAM 07/23/21 12/21/24 History isosorbide dinitrate 20 mg tablet 20 mg PO BID 07/23/21 12/21/24 History levothyroxine 88 mcg tablet 88 mcg PO QAM 07/23/21 12/21/24 History metoprolol succinate 100 mg 100 mg PO AMHS 07/23/21 12/21/24 History tablet,extended release 24 hr multivitamin 1 tab PO QAM 07/23/21 12/21/24 History pantoprazole 40 mg tablet,delayed 40 mg PO QAM 07/23/21 12/21/24 History release tamsulosin 0.4 mg capsule 0.4 mg PO QAM 07/23/21 12/21/24 History torsemide 100 mg tablet 200 mg PO BID 09/12/21 12/21/24 History fluticasone furoate 100 1 inh inhalation DAILY 09/02/23 12/21/24 History mcg-vilanterol 25 mcg/dose inhalation powder (Breo Ellipta) albuterol sulfate 0.63 mg/3 mL 0.63 mg inhalation Q6H PRN 11/03/24 12/21/24 History solution for nebulization Shortness Of Breath Or Wheezing allopurinol 100 mg tablet 50 mg PO DAILY 11/03/24 12/21/24 History cholecalciferol (vitamin D3) 25 25 mcg PO DAILY 11/03/24 12/21/24 History mcg (1,000 unit) tablet losartan 25 mg tablet 25 mg PO DAILY 11/03/24 12/21/24 History Saccharomyces boulardii 250 mg 250 mg PO DAILY #30 caps 11/06/24 12/21/24 Rx capsule warfarin 2.5 mg tablet 2.5 mg PO UD 12/06/24 12/21/24 History Patient History Medical History Sepsis CKD (chronic kidney disease), stage IV on hemodialysis in the past History of acute prostatitis Rheumatoid arthritis Per PCP records ABRAN (obstructive sleep apnea) Per PCP records A-V fistula lt side; did not start dialysis yet Thrombocytopenia Chronic, baseline low 100s per chart review Deaf Left Chronic back pain GERD (gastroesophageal reflux disease) BPH (benign prostatic hyperplasia) Surgical History History of repair of rotator cuff Left History of carpal tunnel release R/L History of total knee replacement R/L Fusion of spine Neck Fusion of spine Lumbar History of colonoscopy History of cardiac cath 2010 > no stents >[facility] Nausea and vomiting after administration of anesthetic agent Family History Mother Cancer Other Family history non-contributory Social History Smoking Status: Never smoker Second Hand Exposure: Yes (hx at work); Do You Dip or Chew Tobacco: No; Hx Alcohol Use: No Hx Substance Use: No Preferred Language: Sami Communication Ability: Effective 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 Beliefs That Will Affect Care: None marital status: Current Living Situation: Spouse Current Living Situation Comment: lives w/ and daughter, Juliana Other Information That Helps Us Care for You: No Feels Safe at Home: Yes Diet: low salt Assistive Devices: Cane and Walker Review of Systems Review of Systems: Please refer to admission H&P Physical Exam Constitutional: + ill appearing (Chronically); no acute distress Eyes: PERRL, conjunctivae normal, anicteric sclerae Neck: trachea midline, no thyromegaly Respiratory: Auscultation: + diminished lung sounds Cardiovascular: Rate/Rhythm: + irregularly irregular Heart Sounds: normal S1, normal S2 and + murmur (Grade 1/6 systolic murmur, no diastolic) Vessels: no JVD Extremities: + edema Gastrointestinal (Abdomen): normal bowel sounds, soft, nontender, no hepatosplenomegaly Skin: Left arm in sling Results & Data Results & Data Vital Signs (Past 12 Hours) Vital Signs Temp Pulse Pulse Resp BP Pulse Ox O2 Del Method 12/23/24 09:32 Nasal Cannula 12/23/24 08:14 36.6 C 76 18 137/77 97 Nasal Cannula 12/23/24 07:24 64 12/23/24 03:54 36.8 C 79 18 125/67 97 Nasal Cannula O2 Flow Rate 12/23/24 09:32 2.5 12/23/24 08:14 1 12/23/24 07:24 12/23/24 03:54 2 Diagnostic Findings Patient's last echocardiogram in our system was from December 2022. This revealed concentric LVH with an ejection fraction of 60 to 65% and grade 1 diastolic dysfunction with aortic sclerosis and mild aortic insufficiency with elevated pulmonary arterial pressures. Critical Care Results & Data Vital Signs (Past 12 Hours) Vital Signs Temp Pulse Pulse Resp BP Pulse Ox O2 Del Method 12/23/24 09:32 Nasal Cannula 12/23/24 08:14 36.6 C 76 18 137/77 97 Nasal Cannula 12/23/24 07:24 64 12/23/24 03:54 36.8 C 79 18 125/67 97 Nasal Cannula O2 Flow Rate 12/23/24 09:32 2.5 12/23/24 08:14 1 12/23/24 07:24 12/23/24 03:54 2 Lab & Micro Results (Past 24 Hours) RBC 3.62 M/uL (4.70-6.10) L 12/23/24 WBC 10.31 K/ul (4.8-10.8) 12/23/24 Hgb 9.8 g/dl (14.0-18.0) L 12/23/24 Hct 31.2 % (42.0-52.0) L 12/23/24 MCV 86.2 fL (80.0-100.0) 12/23/24 MCH 27.1 pg (25.0-34.0) 12/23/24 MCHC 31.4 g/dL (32.0-36.0) L 12/23/24 RDW Standard Deviation 55.5 fL (36.4-46.3) H 12/23/24 RDW Coefficient of Variation 17.4 % (11.5-14.5) H 12/23/24 Plt Count 125 K/uL (130-400) L 12/23/24 MPV 11.4 fL (9.4-12.4) 12/23/24 Neutrophils (%) (Auto) 81.6 % 12/23/24 Lymphocytes (%) (Auto) 7.3 % 12/23/24 Monocytes # (Auto) 0.72 K/uL (0.11-0.59) H 12/23/24 Eosinophils # (Auto) 0.28 K/uL (0.00-0.50) 12/23/24 Immature Granulocyte % (Auto) 0.9 % 12/23/24 Neutrophils # (Auto) 8.42 K/uL (1.40-6.50) H 12/23/24 Lymphocytes # (Auto) 0.75 K/uL (1.20-3.40) L 12/23/24 Monocytes # (Auto) 0.72 K/uL (0.11-0.59) H 12/23/24 Eosinophils # (Auto) 0.28 K/uL (0.00-0.50) 12/23/24 Basophils # (Auto) 0.05 K/uL (0.00-0.20) 12/23/24 Immature Granulocyte # (Auto) 0.09 K/uL (0.01-0.20) 5 Na 132 mmol/L (136-145) L 12/23/24 K 4.3 mmol/L (3.5-5.1) 12/23/24 Cl 99 mmol/L (98-107) 12/23/24 CO2 23 mmol/L (21-32) 12/23/24 Anion Gap 10 (3-11) 12/23/24 BUN 101 mg/dl (6-23) H 12/23/24 Creatinine 4.22 mg/dl (0.6-1.4) H 12/23/24 BUN/Creatinine Ratio 23.9 (10-20) H 12/23/24 Glu 114 mg/dl (70-99(Fasting)) H 12/23/24 Ca 9.7 mg/dl (8.6-10.3) 12/23/24 Phosphorus Level 4.0 mg/dl (2.5-4.9) 12/23/24 Total Bilirubin 1.1 mg/dl (0.2-1.0) H 12/23/24 AST 22 U/L (13-39) 12/23/24 ALT 18 U/L (7-52) 12/23/24 Alkaline Phosphatase 128 U/L (34-104) H 12/23/24 TP 6.5 gm/dl (6.0-8.3) 12/23/24 Albumin 3.6 gm/dl (3.4-5.0) 12/23/24 Globulin 2.9 gm/dl (2.5-4.0) 12/23/24 Albumin/Globulin Ratio 1.2 (0.9-2) 12/23/24 Mg 1.9 mg/dl (1.7-2.4) 12/23/24 05:26 Calcium Level 9.7 mg/dl (8.6-10.3) 12/23/24 05:26 Prothromb Time International Ratio 2.1 (0.9-1.1) H 12/23/24 05 :26 Microbiology 12/22/24 11:05 Gram Stain - Final Leg,Right Wound Culture - Preliminary Pseudomonas aeruginosa 12/21/24 18:44 Aerobic Blood Culture - Preliminary Blood No growth in Aerobic bottle after 24 hours. Anaerobic Blood Culture - Preliminary No growth in Anaerobic bottle after 24 hours. 12/21/24 18:42 Aerobic Blood Culture - Preliminary Blood No growth in Aerobic bottle after 24 hours. Anaerobic Blood Culture - Preliminary No growth in Anaerobic bottle after 24 hours. I & O Totals 24 Hours 12/22/24 12/23/24 12/24/24 06:59 06:59 06:59 Intake Total 640 / 640 Output Total 475 / 475 Balance 640 / 640 -475 / -475 Cumulative 12/21/24 16:50 thru 12/23/24 06:00 Intake Total 640 Output Total 475 Balance 165 RT Ventilator Mngmt (Last Documented) Ventilator Ordered Settings Respiratory Rate 18 12/23/24 08:14 Ventilator - PT Measurements Respiratory Rate 18 PG Care Time/CCT Total # of Minutes Spent Total Time Spent with Patient: Total time spent is greater than 50% in coordination of care (as documented) at patient's floor/unit and/or counseling patient: Coding Level of Care Code 22559 INT INP/OBS CARE 3/75MIN Diagnoses Pulmonary hypertension I27.20 Dyspnea R06.00 Diastolic heart failure I50.30 SAM (acute kidney injury) N17.9 Obesity E66.9
[2024-12-23] MEDS ORDERED: WARFARIN SOD 2.5 MG TAB PO SCH (18:30)
[2024-12-23] MEDS: MELATONIN 3 MG TAB PO PRN (23:58)
[2024-12-24 06:14] LABS: Basophils # (auto) 0.05 K/uL (0.00-0.20); Basophils % (auto) 0.5 %; Eosinophils # (auto) 0.38 K/uL (0.00-0.50); Eosinophils % (auto) 4.1 %; Hematocrit (blood only) 30.6 % (42.0-52.0); Hemoglobin 9.8 g/dl (14.0-18.0); Immature Granulocytes # (auto) 0.08 K/uL (0.01-0.20); Immature Granulocytes % (auto) 0.9 %; Lymphocytes # (auto) 0.85 K/uL (1.20-3.40); Lymphocytes % (auto) 9.2 %; Mean Corpuscular Hemoglobin 27.3 pg (25.0-34.0); Mean Corpuscular Volume 85.2 fL (80.0-100.0); Mean Platelet Volume 12.1 fL (9.4-12.4); Monocytes # (auto) 0.75 K/uL (0.11-0.59); Monocytes % (auto) 8.1 %; Neutrophils # (auto) 7.13 K/uL (1.40-6.50); Neutrophils % (auto) 77.2 %; Platelet Count 145 K/uL (130-400); RDW Coefficient of Variation 17.5 % (11.5-14.5); RDW Standard Deviation 54.8 fL (36.4-46.3); Red Blood Count 3.59 M/uL (4.70-6.10); White Blood Count 9.24 K/ul (4.8-10.8)
[2024-12-24 06:32] LABS: INR 2.1 (0.9-1.1); Prothrombin Time 20.9 Seconds (9.0-12.0)
[2024-12-24 06:44] LABS: Albumin Globulin Ratio 1.2 (0.9-2); Albumin Level 3.5 gm/dl (3.4-5.0); BUN Creatinine Ratio 22.9 (10-20); Bilirubin,Total 1.1 mg/dl (0.2-1.0); Calcium 9.5 mg/dl (8.6-10.3); Ferritin 228.9 ng/ml (8-388); Magnesium 1.8 mg/dl (1.7-2.4); Phosphorus 3.7 mg/dl (2.5-4.9); Potassium 4.6 mmol/L (3.5-5.1); Total Protein 6.5 gm/dl (6.0-8.3)
[2024-12-24 06:50] LABS: Folate (Folic Acid),Ser orPlas 20.69 ng/ml (>5.38)
--- NOTE | 2024-12-24 11:11 | Electrocardiogram Report ---
Test Reason : Blood Pressure : */* mmHG Vent. Rate : 74 BPM Atrial Rate : 76 BPM P-R Int : * ms QRS Dur : 104 ms QT Int : 382 ms P-R-T Axes : * 4 66 degrees QTcB Int : 424 ms Atrial fibrillation with premature ventricular or aberrantly conducted complexes Low voltage QRS Cannot rule out Anterior infarct (cited on or before 02-Sep-2023) Abnormal ECG When compared with ECG of 21-Dec-2024 17:15, Questionable change in QRS axis Confirmed by Tia Nunes ([id number]) on 12/24/2024 11:10:50 AM Referred By: REFERRED SELF Confirmed By: Tai Nunes
--- NOTE | 2024-12-24 12:52 | Nephrology Progress Note ---
Date of Service December 24, 2024 Assessment & Plan Admission and Anticipated Discharge Date Admission Date: December 21, 2024 Subjective Assessment & Plan (1) CKD (chronic kidney disease) stage 5, GFR less than 15 ml/min: he has known CKD 4 to stage 5 secondary to longstanding diabetes/hypertension with nephrotic range proteinuria previously on hemodialysis but then taken off after partial recovery and because of his preference. he does get into significant fluid retention from CKD. His cardiac status is not really that bad and fluid retention is predominantly CKD related. he has a very high obligatory need of diuretics and he has been on torsemide 200 twice daily for significant time. metolazone has caused severe profound hyponatremia in the past as well as electrolyte imbalance and has not been used since then. However I am not 100% sure that patient is actually taking the torsemide as prescribed either intentionally or by confusion. during my last visit in June 2024 he did not have significant edema. When he is taking the diuretics as prescribed typically he does not have edema. he did not get any lasix till AM 1/24 but his BUN and creat was rising even before that. even with lasix 100 iv hardly any rise in urine output. Quite possible he has ATN on top of his baseline CKD causing worsening labs and fluid retention and lack of response to high dose lasix. Not good combination. he might get back to dialysis need. (2) SAM (acute kidney injury): his baseline creatinine is hard to pinpoint but anything in the high threes and low 4s would be regarded as within his range. also worth noting that when he gets severe fluid retention there is some hemodilution causing falsely lower creatinine than real. at this point I would say this is predominantly CKD 5 with significant fluid retention. (3) Diabetic ulcer of toe of right foot: (4) Venous stasis ulcers of both lower extremities: (5) Kidney disease with fluid retention: significant fluid retention with bilateral lower extremity edema causing skin breakdown ulcer and now infection which needs to be tackled with both antibiotics as well as diuretics. However not much response with iv lasix 100 q8hr also. But renal labs got worse S--not much urine with lasix. renal labs however worse. Physical Exam Constitutional: + ill appearing (Chronically); no acute distress Eyes: PERRL, conjunctivae normal, anicteric sclerae Neck: trachea midline, no thyromegaly Respiratory: Auscultation: + diminished lung sounds Cardiovascular: Rate/Rhythm: + irregularly irregular Heart Sounds: normal S1, normal S2 and + murmur (Grade 1/6 systolic murmur, no diastolic) Vessels: no JVD Extremities: + edema Gastrointestinal (Abdomen): normal bowel sounds, soft, nontender, no hepatospl enomegaly Skin: Left arm in sling Results & Data Vital Signs (Past 12 Hours) Vital Signs Temp Pulse Pulse Resp BP Pulse Ox O2 Del Method 12/24/24 11:47 36.6 C 68 20 152/69 H 95 Room Air 12/24/24 08:52 Room Air 12/24/24 07:31 36.5 C 74 126/71 96 Room Air 12/24/24 06:38 84 12/24/24 04:17 36.4 C L 75 20 130/82 96 Nasal Cannula O2 Flow Rate 12/24/24 11:47 12/24/24 08:52 12/24/24 07:31 12/24/24 06:38 12/24/24 04:17 2.5
--- NOTE | 2024-12-24 14:00 | Hospitalist Progress Note ---
Date of Service December 24, 2024 Assessment & Plan (1) Fever: (2) Venous stasis ulcers of both lower extremities: (3) Type 2 diabetes mellitus: (4) Atrial fibrillation: (5) Hypertension: (6) COPD (chronic obstructive pulmonary disease): (7) Chronic heart failure with preserved ejection fraction (HFpEF): (8) CAD (coronary artery disease): Plan Patient is an 84 year old male with PMHx significant for HTN, atrial fibrillation anticoagulated on warfarin, chronic HFpEF, DM II, previous history CKD V on HD and now current CKD IV no longer on HD, CAD, COPD, hypothyroidism, chronic thrombocytopenia, BENI, ABRAN on 2.5L oxygen at bedtime, gout, history amputation left second toe who presented to the ER with concern for wound to right lower leg. Sepsis Cellulitis Lower extremity wounds Secondary to infected RLE wound History of venous stasis Failed outpatient treatment Wound culture currently growing pseudomonas Blood cultures NGTD XR tib fib unremarkable CT RLE noting cellulitis cannot be ruled out Wound nurse consult Continue with IV Cefepime and doxycycline Consider ID consult Acute hypoxic respiratory failure Dyspnea on exertion Pulmonary HTN hx chronic COPD ABRAN status post surgery/nocturnal hypoxemia on home O2 at night Underlying pulmonary hypertension chest xray noting infiltrate vs atelectasis Neb treatment as needed SOB/wheezing Oxygen supplementation as needed On Cefepime and doxycycline as noted above pulmonology consulted, appreciate recs. Recommended/stated the following: "...Patient's pulmonary issues at this point in time appear chronic and longstanding. No indication for additional evaluation in the acute setting. Would recommend optimization of his underlying volume status with cardiology and nephrology. He can then follow-up with his outpatient [facility] pulmonary group at discharge. He will likely need aggressive rehab..." Continue to monitor Chronic anemia hemoglobin downtrended to 9.8 Anemia panel noting iron deficiency Will defer on IV venofer in the setting of acute severe infection Consider po ferrous sulfate once infection improved Continue to monitor A-fib on metoprolol and Coumadin INR currently therapeutic Noted increasing runs of PVCs on 12/24 metoprolol dose increased Continue to monitor Diastolic Heart Failure Dyspnea on exertion Lower extremity swelling Noted on echo from 2022 Pt with significant lower extremity edema Will defer on diuresis in setting of severe CKD Usually on torsemide 200mg BID at home Cardiology consulted, appreciate recs Nephrology also consulted for volume/fluid management CKD creatinine at baseline, past history of dialysis as per records previous history CKD V on HD and now current CKD IV no longer on HD Cr of 3.92 on admission, at baseline Follows with Nephrology Nephrology consulted, appreciate further recs Continue to monitor Other Chronic Medical porblems: Valvular heart disease (mild AR/TR) DM2 on oral medications, reasonable control as of recent hemoglobin A1c of 7.07 September 2024 Hypothyroidism, euthyroid as of recent outpatient TSH GERD on PPI Rheumatoid arthritis Diet: HH/DMII DVT prophylaxis: on coumadin Dispo: PT/OT recommending rehab Admission and Anticipated Discharge Date Admission Date: December 21, 2024 Subjective pt was seen multiple times during the day. Initially alone, where he stated that he denied acute concerns. later seen with daughter at bedside, update provided Pt with runs of PACs overnight Review of Systems Review of Systems: All systems reviewed & are unremarkable except as noted in Subjective Physical Exam Physical Exam: General: Alert, oriented. No acute distress Skin: RLE with skin sloughing and noted drainage, LLE with noted chronic skin changes and erythema Psych: Appropriate mood and affect Neuro: hearing loss, difficulty with movements in the bed HEENT: NC/AT CV: irregular Resp: no increased effort of breathing Abdomen: Soft, nontender Extremities:left arm in sling, noted left finger amputation, RLE and LLE with bandages present, +++edema Results & Data Results & Data Vital Signs (Past 12 Hours) Vital Signs Temp Pulse Pulse Resp BP Pulse Ox O2 Del Method 12/24/24 13:40 77 12/24/24 11:47 36.6 C 68 20 152/69 H 95 Room Air 12/24/24 08:52 Room Air 12/24/24 07:31 36.5 C 74 126/71 96 Room Air 12/24/24 06:38 84 12/24/24 04:17 36.4 C L 75 20 130/82 96 Nasal Cannula O2 Flow Rate 12/24/24 13:40 12/24/24 11:47 12/24/24 08:52 12/24/24 07:31 12/24/24 06:38 12/24/24 04:17 2.5
[2024-12-24 14:59] LABS: Appearance Urine Clear (Clear); Bacteria Urine Automated None Seen (None Seen); Bilirubin Urine Negative (Negative); Blood Urine Negative (Negative); Cast Urine Automated 0-2 /lpf (0-2); Color Urine Yellow; Epithelial Cell Urine Auto 0-2 /hpf (0-2); Glucose Urine UA Negative (Negative); Ketones Urine Negative (Negative); Leukocyte Esterase Urine Negative (Negative); Nitrite Urine Negative (Negative); Protein Urine 1+ (Negative); RBC Urine Automated 0-2 /hpf (0-2); Specific Gravity Urine 1.012 (1.000-1.030); Urobilinogen Urine Negative (Negative); WBC Urine Automated 0-5 /hpf (0-5); pH Urine 5.5 (4.5-7.5)
[2024-12-24] MEDS: WARFARIN SOD 2.5 MG TAB PO SCH (15:17)
[2024-12-24] MEDS: METOPROLOL TARTRATE 1 MG/ML VIAL IV STA (16:30)
[2024-12-24] MEDS: METOPROLOL SUCC 25MG EXT REL TAB PO SCH (21:32)
[2024-12-25 07:48] LABS: Basophils # (auto) 0.07 K/uL (0.00-0.20); Basophils % (auto) 0.7 %; Eosinophils % (auto) 4.2 %; Hematocrit (blood only) 31.9 % (42.0-52.0); Hemoglobin 10.4 g/dl (14.0-18.0); Lymphocytes # (auto) 0.88 K/uL (1.20-3.40); Lymphocytes % (auto) 9.2 %; Mean Corpuscular Hemoglobin 27.9 pg (25.0-34.0); Mean Corpuscular Hgb Conc 32.6 g/dL (32.0-36.0); Mean Corpuscular Volume 85.5 fL (80.0-100.0); Mean Platelet Volume 11.7 fL (9.4-12.4); Monocytes # (auto) 0.91 K/uL (0.11-0.59); Monocytes % (auto) 9.5 %; Neutrophils # (auto) 7.23 K/uL (1.40-6.50); Neutrophils % (auto) 75.4 %; Platelet Count 160 K/uL (130-400); RDW Coefficient of Variation 17.5 % (11.5-14.5); RDW Standard Deviation 55.1 fL (36.4-46.3); Red Blood Count 3.73 M/uL (4.70-6.10); White Blood Count 9.59 K/ul (4.8-10.8)
[2024-12-25 08:10] LABS: Prothrombin Time 20.3 Seconds (9.0-12.0)
[2024-12-25 08:19] LABS: Albumin Globulin Ratio 1.2 (0.9-2); Albumin Level 3.6 gm/dl (3.4-5.0); BUN Creatinine Ratio 23.1 (10-20); Bilirubin,Total 1.1 mg/dl (0.2-1.0); Calcium 9.9 mg/dl (8.6-10.3); Creatinine Clr Calc Pharmacy 12.2 ml/min; Globulin 3.1 gm/dl (2.5-4.0); Magnesium 1.8 mg/dl (1.7-2.4); Phosphorus 3.7 mg/dl (2.5-4.9); Potassium 4.8 mmol/L (3.5-5.1); Total Protein 6.7 gm/dl (6.0-8.3)
[2024-12-25] MEDS: CEFEPIME 1000MG 1,000 MG/10 ML SYR IV SCH (08:23)
[2024-12-25] MEDS: POTASSIUM CHLORIDE CRTAB 20 MEQ TABCR PO SCH (08:23)
--- NOTE | 2024-12-25 11:02 | Nephrology Progress Note ---
Date of Service December 25, 2024 Assessment & Plan Admission and Anticipated Discharge Date Admission Date: December 21, 2024 Subjective Assessment & Plan (1) CKD (chronic kidney disease) stage 5, GFR less than 15 ml/min: he has known CKD 4 to stage 5 secondary to longstanding diabetes/hypertension with nephrotic range proteinuria previously on hemodialysis but then taken off after partial recovery and because of his preference. he does get into significant fluid retention from CKD. His cardiac status is not really that bad and fluid retention is predominantly CKD related. he has a very high obligatory need of diuretics and he has been on torsemide 200 twice daily for significant time. metolazone has caused severe profound hyponatremia in the past as well as electrolyte imbalance and has not been used since then. However I am not 100% sure that patient is actually taking the torsemide as prescribed either intentionally or by confusion. during my last visit in June 2024 he did not have significant edema. When he is taking the diuretics as prescribed typically he does not have edema. he did not get any lasix till AM 124 but his BUN and creat was rising even before that. even with lasix 100 iv hardly any rise in urine output. Already stopped. Quite possible he has ATN on top of his baseline CKD causing worsening labs and fluid retention and lack of response to high dose lasix. or could just be ESRD. Spoke with patient yesterday and he said he will rather than Do dialysis again. Called his daughter and spoke with her in great detail---She is agreeing and aware of her fathers decision. No dialysis. patient is starting to get more confused now likely from uremia with baseline dementia. Will do palliative med Consult as per daughters request/Question. (2) SAM (acute kidney injury): his baseline creatinine is hard to pinpoint but anything in the high threes and low 4s would be regarded as within his range. also worth noting that when he gets severe fluid retention there is some hemodilution causing falsely lower creatinine than real. at this point I would say this is predominantly CKD 5 with significant fluid re tention. (3) Diabetic ulcer of toe of right foot: (4) Venous stasis ulcers of both lower extremities: (5) Kidney disease with fluid retention: significant fluid retention with bilateral lower extremity edema causing skin breakdown ulcer and now infection which needs to be tackled with both antibiotics as well as diuretics. However not much response with iv lasix 100 q8hr also. But renal labs got worse S--not much urine. renal labs however worse. More confused now Physical Exam Constitutional: + ill appearing (Chronically); no acute distress Eyes: PERRL, conjunctivae normal, anicteric sclerae Neck: trachea midline, no thyromegaly Respiratory: Auscultation: + diminished lung sounds Cardiovascular: Rate/Rhythm: + irregularly irregular Heart Sounds: normal S1, normal S2 and + murmur (Grade 1/6 systolic murmur, no diastolic) Vessels: no JVD Extremities: + edema Gastrointestinal (Abdomen): normal bowel sounds, soft, nontender, no hepatosplenomegaly Skin: Left arm in sling Results & Data Vital Signs (Past 12 Hours) Vital Signs Temp Pulse Pulse Resp BP BP Pulse Ox 12/25/24 10:35 36.6 C 71 18 144/77 H 99 12/25/24 07:06 78 12/25/24 07:05 36.4 C L 78 18 163/82 H 99 12/25/24 04:13 36.8 C 79 20 170/68 H 97 12/25/24 00:07 37.0 C 63 20 150/81 H 97 O2 Del Method O2 Flow Rate 12/25/24 10:35 Nasal Cannula 2 12/25/24 07:06 12/25/24 07:05 Nasal Cannula 2 12/25/24 04:13 Room Air 12/25/24 00:07 Room Air
--- NOTE | 2024-12-25 12:13 | Electrocardiogram Report ---
Test Reason : Blood Pressure : */* mmHG Vent. Rate : 81 BPM Atrial Rate : 153 BPM P-R Int : * ms QRS Dur : 102 ms QT Int : 378 ms P-R-T Axes : * -1 53 degrees QTcB Int : 439 ms Atrial fibrillation with premature ventricular or aberrantly conducted complexes Cannot rule out Anterior infarct (cited on or before 02-Sep-2023) Abnormal ECG When compared with ECG of 23-Dec-2024 11:20, No significant change was found Confirmed by Tia Nunes ([id number]) on 12/25/2024 12:13:09 PM Referred By: REFERRED SELF Confirmed By: Tia Nunes
--- NOTE | 2024-12-25 13:55 | Hospitalist Progress Note ---
Date of Service December 25, 2024 Assessment & Plan (1) Fever: (2) Venous stasis ulcers of both lower extremities: (3) Type 2 diabetes mellitus: (4) Atrial fibrillation: (5) Hypertension: (6) COPD (chronic obstructive pulmonary disease): (7) Chronic heart failure with preserved ejection fraction (HFpEF): (8) CAD (coronary artery disease): Plan Patient is an 84 year old male with PMHx significant for HTN, atrial fibrillation anticoagulated on warfarin, chronic HFpEF, DM II, previous history CKD V on HD and now current CKD IV no longer on HD, CAD, COPD, hypothyroidism, chronic thrombocytopenia, BENI, ARBAN on 2.5L oxygen at bedtime, gout, history amputation left second toe who presented to the ER with concern for wound to right lower leg. Sepsis Cellulitis Lower extremity wounds Secondary to infected RLE wound History of venous stasis Failed outpatient treatment Wound culture currently growing pseudomonas Blood cultures NGTD XR tib fib unremarkable CT RLE noting cellulitis cannot be ruled out Wound nurse consult Continue with IV Cefepime and doxycycline Consider ID consult Acute hypoxic respiratory failure Dyspnea on exertion Pulmonary HTN hx chronic COPD ABRAN status post surgery/nocturnal hypoxemia on home O2 at night Underlying pulmonary hypertension chest xray noting infiltrate vs atelectasis Neb treatment as needed SOB/wheezing Oxygen supplementation as needed On Cefepime and doxycycline as noted above pulmonology consulted, appreciate recs. Recommended/stated the following: "...Patient's pulmonary issues at this point in time appear chronic and longstanding. No indication for additional evaluation in the acute setting. Would recommend optimization of his underlying volume status with cardiology and nephrology. He can then follow-up with his outpatient [facility] pulmonary group at discharge. He will likely need aggressive rehab..." Continue to monitor Chronic anemia hemoglobin downtrended to 9.8 Anemia panel noting iron deficiency Will defer on IV venofer in the setting of acute severe infection Consider po ferrous sulfate once infection improved Continue to monitor A-fib on metoprolol and Coumadin INR currently therapeutic Noted increasing runs of PVCs on 12/24 metoprolol dose increased Continue to monitor Diastolic Heart Failure Dyspnea on exertion Lower extremity swelling Noted on echo from 2022 Pt with significant lower extremity edema Will defer on diuresis in setting of severe CKD Usually on torsemide 200mg BID at home Cardiology consulted, appreciate recs Nephrology also consulted for volume/fluid management -pt refusing dialysis -palliative care consult CKD creatinine at baseline, past history of dialysis as per records previous history CKD V on HD and now current CKD IV no longer on HD Cr of 3.92 on admission, at baseline Follows with Nephrology Nephrology consulted, appreciate further recs Continue to monitor Other Chronic Medical problems: Valvular heart disease (mild AR/TR) DM2 on oral medications, reasonable control as of recent hemoglobin A1c of 7.07 September 2024 Hypothyroidism, euthyroid as of recent outpatient TSH GERD on PPI Rheumatoid arthritis Diet: HH/DMII DVT prophylaxis: on coumadin Dispo: PT/OT recommending rehab Admission and Anticipated Discharge Date Admission Date: December 21, 2024 Subjective Pt was seen laying in bed Denied acute concerns Pt refusing dialysis....family would like a palliative care consult Review of Systems Review of Systems: All systems reviewed & are unremarkable except as noted in Subjective Physical Exam Physical Exam: General: Alert, oriented. No acute distress Skin: RLE with skin sloughing and noted drainage, LLE with noted chronic skin changes and erythema Psych: Appropriate mood and affect Neuro: hearing loss, difficulty with movements in the bed HEENT: NC/AT CV: irregular Resp: no increased effort of breathing Abdomen: Soft, nontender Extremities:left arm in sling, noted left finger amputation, RLE and LLE with bandages present, +++edema Results & Data Results & Data Vital Signs (Past 12 Hours) Vital Signs Temp Pulse Pulse Resp BP BP Pulse Ox 12/25/24 10:35 36.6 C 71 18 144/77 H 99 12/25/24 07:06 78 12/25/24 07:05 36.4 C L 78 18 163/82 H 99 12/25/24 04:13 36.8 C 79 20 170/68 H 97 O2 Del Method O2 Flow Rate 12/25/24 10:35 Nasal Cannula 2 12/25/24 07:06 12/25/24 07:05 Nasal Cannula 2 12/25/24 04:13 Room Air
[2024-12-26 09:05] LABS: Basophils # (auto) 0.05 K/uL (0.00-0.20); Basophils % (auto) 0.7 %; Eosinophils # (auto) 0.33 K/uL (0.00-0.50); Eosinophils % (auto) 4.6 %; Hematocrit (blood only) 31.3 % (42.0-52.0); Hemoglobin 9.9 g/dl (14.0-18.0); Immature Granulocytes % (auto) 1.4 %; Lymphocytes # (auto) 0.78 K/uL (1.20-3.40); Lymphocytes % (auto) 10.9 %; Mean Corpuscular Hemoglobin 27.6 pg (25.0-34.0); Mean Corpuscular Hgb Conc 31.6 g/dL (32.0-36.0); Mean Corpuscular Volume 87.2 fL (80.0-100.0); Mean Platelet Volume 12.6 fL (9.4-12.4); Monocytes # (auto) 0.61 K/uL (0.11-0.59); Monocytes % (auto) 8.5 %; Neutrophils % (auto) 73.9 %; Platelet Count 156 K/uL (130-400); RDW Coefficient of Variation 17.5 % (11.5-14.5); RDW Standard Deviation 56.2 fL (36.4-46.3); Red Blood Count 3.59 M/uL (4.70-6.10); White Blood Count 7.17 K/ul (4.8-10.8)
[2024-12-26 09:26] LABS: Albumin Globulin Ratio 1.1 (0.9-2); Albumin Level 3.4 gm/dl (3.4-5.0); BUN Creatinine Ratio 21.8 (10-20); Calcium 9.9 mg/dl (8.6-10.3); Magnesium 1.8 mg/dl (1.7-2.4); Phosphorus 4.3 mg/dl (2.5-4.9); Total Protein 6.4 gm/dl (6.0-8.3)
[2024-12-26 09:29] LABS: Prothrombin Time 20.4 Seconds (9.0-12.0)
--- NOTE | 2024-12-26 11:58 | Hospitalist Progress Note ---
Date of Service December 26, 2024 Assessment & Plan (1) Fever: (2) Venous stasis ulcers of both lower extremities: (3) Type 2 diabetes mellitus: (4) Atrial fibrillation: (5) Hypertension: (6) COPD (chronic obstructive pulmonary disease): (7) Chronic heart failure with preserved ejection fraction (HFpEF): (8) CAD (coronary artery disease): Plan Patient is an 84 year old male with PMHx significant for HTN, atrial fibrillation anticoagulated on warfarin, chronic HFpEF, DM II, previous history CKD V on HD and now current CKD IV no longer on HD, CAD, COPD, hypothyroidism, chronic thrombocytopenia, BENI, ABRAN on 2.5L oxygen at bedtime, gout, history amputation left second toe who presented to the ER with concern for wound to right lower leg. Sepsis Cellulitis Lower extremity wounds Secondary to infected RLE wound History of venous stasis Failed outpatient treatment Wound culture currently growing pseudomonas Blood cultures NGTD XR tib fib unremarkable CT RLE noting cellulitis cannot be ruled out Wound nurse consult Continue with IV Cefepime and doxycycline Consider ID consult Acute hypoxic respiratory failure Dyspnea on exertion Pulmonary HTN hx chronic COPD ABRAN status post surgery/nocturnal hypoxemia on home O2 at night Underlying pulmonary hypertension chest xray noting infiltrate vs atelectasis Neb treatment as needed SOB/wheezing Oxygen supplementation as needed On Cefepime and doxycycline as noted above pulmonology consulted, appreciate recs. Recommended/stated the following: "...Patient's pulmonary issues at this point in time appear chronic and longstanding. No indication for additional evaluation in the acute setting. Would recommend optimization of his underlying volume status with cardiology and nephrology. He can then follow-up with his outpatient [facility] pulmonary group at discharge. He will likely need aggressive rehab..." Continue to monitor Chronic anemia hemoglobin downtrended to 9.8 Anemia panel noting iron deficiency Will defer on IV venofer in the setting of acute severe infection Consider po ferrous sulfate once infection improved Continue to monitor A-fib on metoprolol and Coumadin INR currently therapeutic Noted increasing runs of PVCs on 12/24 metoprolol dose increased Continue to monitor Diastolic Heart Failure Dyspnea on exertion Lower extremity swelling Noted on echo from 2022 Pt with significant lower extremity edema Will defer on diuresis in setting of severe CKD Usually on torsemide 200mg BID at home Cardiology consulted, appreciate recs Nephrology also consulted for volume/fluid management -pt refusing dialysis -palliative care consult CKD creatinine at baseline, past history of dialysis as per records previous history CKD V on HD and now current CKD IV no longer on HD Cr of 3.92 on admission, at baseline Follows with Nephrology Nephrology consulted, appreciate further recs Continue to monitor Other Chronic Medical problems: Valvular heart disease (mild AR/TR) DM2 on oral medications, reasonable control as of recent hemoglobin A1c of 7.07 September 2024 Hypothyroidism, euthyroid as of recent outpatient TSH GERD on PPI Rheumatoid arthritis Diet: HH/DMII DVT prophylaxis: on coumadin Dispo: PT/OT recommending rehab Admission and Anticipated Discharge Date Admission Date: December 21, 2024 Subjective pt was seen with family at bedside refusing dialysis Review of Systems Review of Systems: All systems reviewed & are unremarkable except as noted in Subjective Physical Exam Physical Exam: General: Alert, oriented. No acute distress Skin: RLE with skin sloughing and noted drainage, LLE with noted chronic skin changes and erythema Psych: Appropriate mood and affect Neuro: hearing loss, difficulty with movements in the bed HEENT: NC/AT CV: irregular Resp: no increased effort of breathing Abdomen: Soft, nontender Extremities:left arm in sling, noted left finger amputation, RLE and LLE with bandages present, +++edema Results & Data Results & Data Vital Signs (Past 12 Hours) Vital Signs Temp Pulse Pulse Resp BP Pulse Ox O2 Del Method 12/26/24 11:18 36.3 C L 64 18 147/84 H 100 Room Air 12/26/24 07:35 36.4 C L 67 18 134/66 99 Room Air 12/26/24 07:27 Nasal Cannula 12/26/24 07:16 64 12/26/24 04:07 36.3 C L 64 20 132/75 94 Nasal Cannula 12/25/24 23:58 36.6 C 74 20 123/74 99 Room Air O2 Flow Rate 12/26/24 11:18 12/26/24 07:35 12/26/24 07:27 2 12/26/24 07:16 12/26/24 04:07 2.5 12/25/24 23:58
--- NOTE | 2024-12-26 16:50 | Nephrology Progress Note ---
Date of Service December 26, 2024 Assessment & Plan (1) CKD (chronic kidney disease) stage 5, GFR less than 15 ml/min: Plan: he has known CKD 4 to stage 5 secondary to longstanding diabetes/hypertension with nephrotic range proteinuria previously on hemodialysis but then taken off after partial recovery and because of his preference. he does get into significant fluid retention from CKD. His cardiac status is not really that bad and fluid retention is predominantly CKD related. he has a very high obligatory need of diuretics and he has been on torsemide 200 twice daily for significant time. metolazone has caused severe profound hyponatremia in the past as well as electrolyte imbalance and has not been used since then. Have been suspected adherence issues with taking the torsemide as prescribed either intentionally or by confusion. per Dr Jaramillo, when he is taking the diuretics as prescribed typically he does not have edema he had 100 mg IV lasix on 12/23 x 2 doses and one dose on 12/24; reluctant to give more lasix now with worsening BUN/creat > would reserve it for when 02 needs increase, whcih they clearly will Conversation with palliative today via TText >> family w/ many questions about starting PD or HHD and how long it would be before he would have renal recovery and not need dialysis again; pt also declined to speak w/ palliative today and for meeting tomorrow 11 AM w/ pt, family, palliative family wanted to know about home dialysis > I explained that we could not start PD/HHD without preparation/training/ screening > that he would need a home environment and family member ready to accommodate dialysis and able to complete the training; we would need in this scenario to start in center HD again and then explore from there if home dialysis would be an option; the patient is not interested in doing any dialysis for any period of time stated when I entered room that pt had changed his mind about dialysis but when I asked him his thoughts on resuming dialysis he stated " she wants me to go (to dialysis). I don't want to go;" he continued: " sooner or later you've gotta face facts, I'm not gonna live forever." and "I'm in misery every day of my life. If I'm gonna do something I need to know I can survive it but I won't go back to dialysis; we went through this before when I stopped (dialysis)" He also stated "I'm miserable with every breath; I don't want to live forever or even half ever if it's living like this." I asked him if he knew what would happen if he didn't do dialysis ; he stated "I will " and something to the effect that he was OK with this. particularly does not feel ready for pt to pass and tried repeatedly to get him to change his mind; she expressed frustration that he'd agreed from her viewpoint to dialysis in the AM but now in PM was back to saying he would not do it. I again explained that it's always the patient's choice here, that we have to respect his wishes which have been very consistent, though would still respect his weishes even if there had been a change. They are aware of family meeting/goals of care discussion tomorrow. I encouraged them to bring questions / concerns to that discussion. I spent 60 minutes in the care of this pt today , reviewing chart, conferring w/ family and other providers, preparing /documenting plan. (2) SAM (acute kidney injury): Plan: his baseline creatinine is hard to pinpoint but anything in the high threes and low 4s would be regarded as within his range. also worth noting that when he gets severe fluid retention there is some hemodilution causing falsely lower creatinine than real. at this point I would say this is predominantly CKD 5 with significant fluid retention >BUN and K and creatinine all creeping up (3) Diabetic ulcer of toe of right foot: Plan: antibioptics per perimary service (4) Kidney disease with fluid retention: Plan: significant fluid retention with bilateral lower extremity edema causing skin breakdown ulcer and now infection which needs to be tackled with both antibiotics as well as diuretics. For the time being we would use Lasix 100 mg IV q.8 hours. I did explain to him that we may need to put a Melendez catheter for convenience and accurate input output measurement. We will be doing daily labs for monitoring Plan Case complexity high total time spent was 60 minute Admission and Anticipated Discharge Date Admission Date: December 21, 2024 Subjective pt seen and evaluated late afternoon rounds; daughter & at bedside; pt endroses more work breathing, no N, minimal appetite; voiding but less; ongoing edema but nto bothersome to him. Review of Systems 2 Review of Systems: All systems reviewed & are unremarkable except as noted in Subjective Physical Exam 2 Constitutional: well developed, + acute distress (mild w/ breathing) and + obese Eyes: EOM intact bilaterally ENMT: Mouth: + dry oral mucous membranes Respiratory: + labored breathing, able to speak in co mplete sentences, + tachypneic and + paradoxical thoraco-abdominal movement; + abnormal respiratory effort and no respiratory distress Auscultation: + diminished lung sounds Cardiovascular: Rate/Rhythm: regular rate and regular rhythm Extremities: + edema (2++ distally) Gastrointestinal (Abdomen): Inspection/Auscultation: normal bowel sounds P ercussion/Palpation: abdomen soft; abdomen nontender Musculoskeletal: Extremities: + limited ROM of extremities (L arm in sling) and + abnormal strength Skin: no rashes, warm and dry + ulcer (BL pretibial and BL toes not examined; dressings cdi) Neurologic: miles, fluent speech, no tremor Psychiatric: Orientation: alert and oriented x 3 Results & Data Vital Signs (Past 12 Hours) Vital Signs Temp Pulse Pulse Resp BP Pulse Ox O2 Del Method 12/26/24 15:37 36.6 C 66 18 114/63 96 Nasal Cannula 12/26/24 13:54 62 12/26/24 11:18 36.3 C L 64 18 147/84 H 100 Room Air 12/26/24 07:35 36.4 C L 67 18 134/66 99 Room Air 12/26/24 07:27 Nasal Cannula 12/26/24 07:16 64 O2 Flow Rate 12/26/24 15:37 2 12/26/24 13:54 12/26/24 11:18 12/26/24 07:35 12/26/24 07:27 2 12/26/24 07:16 Laboratory Results 12/26/24 08:31 12/26/24 08:31
--- NOTE | 2024-12-26 19:49 | Palliative Care Consultation ---
Date of Consultation December 26, 2024 Assessment & Plan (1) Dyspnea and respiratory abnormalities: (2) Weakness generalized: (3) Discussion about advance care planning held with family member: A 30 min face to face ACP meeting was held w/Mrs Trejo and her daughter, at pt and family's request They tell me they are trying to convince pt to start HD and feel his prior success can be obtained again. They say "we have him nearly agreeing to try dialysis" They have many questions about home based HD and say a family friend told them they can have a private nurse come to the house and do his HD at home. I advised I was unsure of this but we can ask nephro, though it is more likely he would need to either go to an HD center or try PD at home. feels they can manage PD if there is a nurse ATC to manage it. Advised that families are generally taught how to do PD and nursing is not omni present in home. Also reviewed that it is unclear if his renal fxn will come back or if he is a candidate for HD They note he would not want a SNF but they are not able to meet all his complex needs right now We discussed that more info is needed to see if these are feasible options Also suggested option of SNF rehab and wound care until improved enough to come home and if no renal recovery, continue HD in OP settings vs ?PD eval Also at their request reviewed what happens if no HD is elected, which is what pt has been saying he wants until this afternoon: we reviewed that it pf does not pursue HD, anticipated survival ranges weeks to maybe a few months, depending on the amount of kidney function they have left and their overall medical condition.In hospitalized patients who stopped dialysis,confusio n/agitation was reported to affect 70% of patients, followed by pain (55%), dyspnea (48%), nausea (36%), twitching/seizures (27%), anxiety/psychological distress (27%), pruritus (24%), and peripheral edema (21%). Advised thatmean survival following dialysis withdrawal is 8-10 days (although rarely can be many weeks); would note that advanced age, multiple comorbidities+frailty, I anticipate this will be shorter anticipated survival. I addressedthe likelihood of progressive encephalopathy. Reassuredpatient/familythat symptoms can be adequately treatedbut drugs with sedating side effects may be necessary to ensure comfort. Discusseddiet: provide pt witha liberal, pleasure-based dietto focus on comfort and QOL, acknowledging that this mayworsen symptoms from edema. they asked about options for care at home if no HD is elected and we reviewed hospice, an interdisciplinary program offered by nurses, nurses aides, social workers, chaplains and a neuropsychology medical consultant for patients with a terminal condition and a life expectancy of less than 6 months. This is covered by Medicare at 100%/no out of pocket expense to patient and all meds/supplies needed by patient for the reason they are on hospice are paid for/covered by hospice. The goal is assure quality of life of the patient in their home setting (home, fpc, inpatient hospice setting) by providing symptoms management, psychosocial and spiritual support. However, they cannot offer 24 hours care and if the family is unable to provide that care, they will have to consider personal care with out of pocket cost vs. fpc placement. We discussed the goals of hospice as a patient service and the goals of care; we discussed EOL trajectories and transitions leandro the emotional impact of realizing mortality as a concrete reality from prior abstract considerations. Pt was reassured that no matter where they are along this trajectory, they are not alone - their medical team will remain by their side through their journey. Discussed the pros/cons of accepting help when especially weakened and distressed by pain-which would also help provide relief/decrease caregiver burden/strain. (4) Palliative care by specialist: Introduced Palliative Medicine and explained our role in patient's care. Patient and/or family were receptive to palliative services for goals of care discussions. Reviewed we are different from hospice, a home health nurse visiting service. 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 ACP discussion as noted above Thank you for allowing us to participate in the ongoing care of this patient. Please page with any additional concerns. Brayan Mejia DNP Director, Palliative Medicine History of Present Illness Reason for Consultation: GOC, refusing HD Attending Physician: Esperanza Alvarez MD History of Present Illness 84yo male with adv renal failure, wounds, active infection and complex comorbidities as noted below he has been refusing HD his and dtr are at bedside and state he was told 3-3 years ago that his kidneys were end stage and he'd be HD dependent but renal fxn recovered so they feel he should try it again bc they believe renal fxn will recover he is dealing with active wounds, infection, decreased mobility and dtr note up to this admission he was walking around their home and still able to drive though dtr admits he had trouble with the brake/gas bc of his neuropathy being so bad. She tended to drive whenever she could to minimize accident risks. Allergies Allergy/AdvReac Type Severity Reaction Status Date / Time codeine Allergy Confusion Verified 12/14/24 14:09 metolazone AdvReac Severe SEVERE Verified 12/14/24 14:09 HYPONATREMIA morphine AdvReac Intermediate Hallucinati Verified 12/14/24 14:09 ons oxycodone AdvReac Intermediate Hallucinati Verified 12/14/24 14:09 ons Penicillins AdvReac Intermediate Hallucinati Verified 12/14/24 14:09 ons Home Medications Medication Instructions Recorded Confirmed Type ascorbic acid (vitamin C) 500 mg 500 mg PO QAM 07/23/21 12/21/24 History tablet (Vitamin C) gabapentin 100 mg capsule 100 mg PO BID 07/23/21 12/21/24 History glipizide 5 mg tablet 5 mg PO QAM 07/23/21 12/21/24 History isosorbide dinitrate 20 mg tablet 20 mg PO BID 07/23/21 12/21/24 History levothyroxine 88 mcg tablet 88 mcg PO QAM 07/23/21 12/21/24 History metoprolol succinate 100 mg 100 mg PO AMHS 07/23/21 12/21/24 History tablet,extended release 24 hr multivitamin 1 tab PO QAM 07/23/21 12/21/24 History pantoprazole 40 mg tablet,delayed 40 mg PO QAM 07/23/21 12/21/24 History release tamsulosin 0.4 mg capsule 0.4 mg PO QAM 07/23/21 12/21/24 History torsemide 100 mg tablet 200 mg PO BID 09/12/21 12/21/24 History fluticasone furoate 100 1 inh inhalation DAILY 09/02/23 12/21/24 History mcg-vilanterol 25 mcg/dose inhalation powder (Breo Ellipta) albuterol sulfate 0.63 mg/3 mL 0.63 mg inhalation Q6H PRN 11/03/24 12/21/24 History solution for nebulization Shortness Of Breath Or Wheezing allopurinol 100 mg tablet 50 mg PO DAILY 11/03/24 12/21/24 History cholecalciferol (vitamin D3) 25 25 mcg PO DAILY 11/03/24 12/21/24 History mcg (1,000 unit) tablet losartan 25 mg tablet 25 mg PO DAILY 11/03/24 12/21/24 History Saccharomyces boulardii 250 mg 250 mg PO DAILY #30 caps 11/06/24 12/21/24 Rx capsule warfarin 2.5 mg tablet 2.5 mg PO UD 12/06/24 12/21/24 History Patient History Medical History Sepsis CKD (chronic kidney disease), stage IV on hemodialysis in the past History of acute prostatitis Rheumatoid arthritis Per PCP records ABRAN (obstructive sleep apnea) Per PCP records A-V fistula lt side; did not start dialysis yet Thrombocytopenia Chronic, baseline low 100s per chart review Deaf Left Chronic back pain GERD (gastroesophageal reflux disease) BPH (benign prostatic hyperplasia) Surgical History History of repair of rotator cuff Left History of carpal tunnel release R/L History of total knee replacement R/L Fusion of spine Neck Fusion of spine Lumbar History of colonoscopy History of cardiac cath 2010 > no stents >[facility] Nausea and vomiting after administration of anesthetic agent Family History Mother Cancer Other Family history non-contributory Social History Smoking Status: Never smoker Second Hand Exposure: Yes (hx at work); Do You Dip or Chew Tobacco: No; Hx Alcohol Use: No Hx Substance Use: No Preferred Language: Pakistani Communication Ability: Effective Motor Vehicles Supervisor Required: No Beliefs That Will Affect Care: None marital status: Current Living Situation: Spouse Current Living Situation Comment: lives w/ and daughter, Juliana Other Information That Helps Us Care for You: No Feels Safe at Home: Yes Diet: low salt Assistive Devices: Cane and Walker Review of Systems Review of Systems: All systems reviewed & are unremarkable except as noted in Subjective Physical Exam Physical Exam: elderly male chronically ill appearing in mod distress, edematous, mod conversational dyspnea abd obese, distended lue in sling, 2 fingers amputated signif edema chronic wounds BLE with dressings, +drainage, mod odor gen weakness aao to self and place Results & Data Vital Signs (Past 12 Hours) Vital Signs Temp Pulse Pulse Resp BP Pulse Ox O2 Del Method 12/26/24 19:32 36.6 C 75 18 142/78 H 98 Nasal Cannula 12/26/24 15:37 36.6 C 66 18 114/63 96 Nasal Cannula 12/26/24 13:54 62 12/26/24 11:18 36.3 C L 64 18 147/84 H 100 Room Air O2 Flow Rate 12/26/24 19:32 2 12/26/24 15:37 2 12/26/24 13:54 12/26/24 11:18 Laboratory Results 12/26/24 12/26/24 12/26/24 Range/Units 16:59 12:26 08:31 WBC 7.17 (4.8-10.8) K/ul RBC 3.59 L (4.70-6.10) M/uL Hgb 9.9 L (14.0-18.0) g/dl Hct 31.3 L (42.0-52.0) % MCV 87.2 (80.0-100.0) fL MCH 27.6 (25.0-34.0) pg MCHC 31.6 L (32.0-36.0) g/dL RDW Std Deviation 56.2 H (36.4-46.3) fL RDW Coeff of Yanira 17.5 H (11.5-14.5) % Plt Count 156 (130-400) K/uL MPV 12.6 H (9.4-12.4) fL Immature Gran % (Auto) 1.4 % Neut % (Auto) 73.9 % Lymph % (Auto) 10.9 % [place] % (Auto) 8.5 % Eos % (Auto) 4.6 % Baso % (Auto) 0.7 % Neut # (Auto) 5.30 (1.40-6.50) K/uL Lymph # (Auto) 0.78 L (1.20-3.40) K/uL [place] # (Auto) 0.61 H (0.11-0.59) K/uL Eos # (Auto) 0.33 (0.00-0.50) K/uL Baso # (Auto) 0.05 (0.00-0.20) K/uL Immature Gran # (Auto) 0.10 (0.01-0.20) K/uL ESR (0-20) mm/hr PT 20.4 H (9.0-12.0) Seconds INR 2.0 H (0.9-1.1) APTT (21-31) Seconds PTT Ratio Sodium 132 L (136-145) mmol/L Potassium 5.0 (3.5-5.1) mmol/L Chloride 100 (98-107) mmol/L Carbon Dioxide 24 (21-32) mmol/L Anion Gap 8 (3-11) BUN 125 H (6-23) mg/dl Creatinine 5.73 H* D (0.6-1.4) mg/dl Est Cr Clr Drug Dosing 11.0 ml/min eGFR 9.19 BUN/Creatinine Ratio 21.8 H (10-20) Glucose 126 H (70-99(Fasting)) mg/dl POC Glucose 146 H 143 H (70-99) mg/dl Lactate (0.4-2.0) mmol/L Calcium 9.9 (8.6-10.3) mg/dl Phosphorus 4.3 (2.5-4.9) mg/dl Magnesium 1.8 (1.7-2.4) mg/dl Iron (35-175) mcg/dl TIBC (250-450) mcg/dl Transferrin (200-360) mg/dl Transferrin % Sat (20-50) % Ferritin (8-388) ng/ml Total Bilirubin 1.0 (0.2-1.0) mg/dl AST 22 (13-39) U/L ALT 28 (7-52) U/L Alkaline Phosphatase 183 H (34-104) U/L C-Reactive Protein (0-0.5) mg/dl Total Protein 6.4 (6.0-8.3) gm/dl Albumin 3.4 (3.4-5.0) gm/dl Globulin 3.0 (2.5-4.0) gm/dl Albumin/Globulin Ratio 1.1 (0.9-2) Vitamin B12 (180-914) pg/ml Folate (>5.38) ng/ml Procalcitonin (0-0.5) ng/ml Urine Color Urine Appearance (Clear) Urine pH (4.5-7.5) Ur Specific [place] (1.000-1.030) Urine Protein (Negative) Urine Glucose (UA) (Negative) Urine Ketones (Negative) Urine Blood (Negative) Urine Nitrite (Negative) Urine Bilirubin (Negative) Urine Urobilinogen (Negative) Ur Leukocyte Esterase (Negative) Urine WBC (Auto) (0-5) /hpf Urine RBC (Auto) (0-2) /hpf U Hyaline Cast (Auto) (0-2) /lpf U Epithel Cells (Auto) (0-2) /hpf Urine Bacteria (Auto) (None Seen) Adenovirus (PCR) (NotDetected) B. pertussis DNA (PCR) (NotDetected) B.parapertussis DNA PCR (NotDetected) C. pneumoniae DNA (PCR) (NotDetected) Coronavirus OC43 (PCR) (NotDetected) Coronavirus HKU1 (PCR) (NotDetected) Coronavirus 229E (PCR) (NotDetected) SARS-CoV-2 (PCR) (NotDetected) Coronavirus NL63 (PCR) (NotDetected) Human Metapneumovir PCR (NotDetected) Influenza Type A (PCR) (NotDetected) Influenza Type B (PCR) (NotDetected) M. pneumoniae (PCR) (NotDetected) Parainfluenza 1 (PCR) (NotDetected) Parainfluenza 2 (PCR) (NotDetected) Parainfluenza 3 (PCR) (NotDetected) Parainfluenza 4 (PCR) (NotDetected) RSV (PCR) (NotDetected) Entero/Rhino (PCR) (NotDetected) 12/26/24 12/25/24 12/25/24 Range/Units 07:48 20:29 17:21 WBC (4.8-10.8) K/ul RBC (4.70-6.10) M/uL Hgb (14.0-18.0) g/dl Hct (42.0-52.0) % MCV (80.0-100.0) fL MCH (25.0-34.0) pg MCHC (32.0-36.0) g/dL RDW Std Deviation (36.4-46.3) fL RDW Coeff of Yanira (11.5-14.5) % Plt Count (130-400) K/uL MPV (9.4-12.4) fL Immature Gran % (Auto) % Neut % (Auto) % Lymph % (Auto) % [place] % (Auto) % Eos % (Auto) % Baso % (Auto) % Neut # (Auto) (1.40-6.50) K/uL Lymph # (Auto) (1.20-3.40) K/uL [place] # (Auto) (0.11-0.59) K/uL Eos # (Auto) (0.00-0.50) K/uL Baso # (Auto) (0.00-0.20) K/uL Immature Gran # (Auto) (0.01-0.20) K/uL ESR (0-20) mm/hr PT (9.0-12.0) Seconds INR (0.9-1.1) APTT (21-31) Seconds PTT Ratio Sodium (136-145) mmol/L Potassium (3.5-5.1) mmol/L Chloride (98-107) mmol/L Carbon Dioxide (21-32) mmol/L Anion Gap (3-11) BUN (6-23) mg/dl Creatinine (0.6-1.4) mg/dl Est Cr Clr Drug Dosing ml/min eGFR BUN/Creatinine Ratio (10-20) Glucose (70-99(Fasting)) mg/dl POC Glucose 133 H 196 H 192 H (70-99) mg/dl Lactate (0.4-2.0) mmol/L Calcium (8.6-10.3) mg/dl Phosphorus (2.5-4.9) mg/dl Magnesium (1.7-2.4) mg/dl Iron (35-175) mcg/dl TIBC (250-450) mcg/dl Transferrin (200-360) mg/dl Transferrin % Sat (20-50) % Ferritin (8-388) ng/ml Total Bilirubin (0.2-1.0) mg/dl AST (13-39) U/L ALT (7-52) U/L Alkaline Phosphatase (34-104) U/L C-Reactive Protein (0-0.5) mg/dl Total Protein (6.0-8.3) gm/dl Albumin (3.4-5.0) gm/dl Globulin (2.5-4.0) gm/dl Albumin/Globulin Ratio (0.9-2) Vitamin B12 (180-914) pg/ml Folate (>5.38) ng/ml Procalcitonin (0-0.5) ng/ml Urine Color Urine Appearance (Clear) Urine pH (4.5-7.5) Ur Specific [place] (1.000-1.030) Urine Protein (Negative) Urine Glucose (UA) (Negative) Urine Ketones (Negative) Urine Blood (Negative) Urine Nitrite (Negative) Urine Bilirubin (Negative) Urine Urobilinogen (Negative) Ur Leukocyte Esterase (Negative) Urine WBC (Auto) (0-5) /hpf Urine RBC (Auto) (0-2) /hpf U Hyaline Cast (Auto) (0-2) /lpf U Epithel Cells (Auto) (0-2) /hpf Urine Bacteria (Auto) (None Seen) Adenovirus (PCR) (NotDetected) B. pertussis DNA (PCR) (NotDetected) B.parapertussis DNA PCR (NotDetected) C. pneumoniae DNA (PCR) (NotDetected) Coronavirus OC43 (PCR) (NotDetected) Coronavirus HKU1 (PCR) (NotDetected) Coronavirus 229E (PCR) (NotDetected) SARS-CoV-2 (PCR) (NotDetected) Coronavirus NL63 (PCR) (NotDetected) Human Metapneumovir PCR (NotDetected) Influenza Type A (PCR) (NotDetected) Influenza Type B (PCR) (NotDetected) M. pneumoniae (PCR) (NotDetected) Parainfluenza 1 (PCR) (NotDetected) Parainfluenza 2 (PCR) (NotDetected) Parainfluenza 3 (PCR) (NotDetected) Parainfluenza 4 (PCR) (NotDetected) RSV (PCR) (NotDetected) Entero/Rhino (PCR) (NotDetected) 12/25/24 12/25/24 12/25/24 Range/Units 12:11 08:00 07:19 WBC 9.59 (4.8-10.8) K/ul RBC 3.73 L (4.70-6.10) M/uL Hgb 10.4 L (14.0-18.0) g/dl Hct 31.9 L (42.0-52.0) % MCV 85.5 (80.0-100.0) fL MCH 27.9 (25.0-34.0) pg MCHC 32.6 (32.0-36.0) g/dL RDW Std Deviation 55.1 H (36.4-46.3) fL RDW Coeff of Yanira 17.5 H (11.5-14.5) % Plt Count 160 (130-400) K/uL MPV 11.7 (9.4-12.4) fL Immature Gran % (Auto) 1.0 % Neut % (Auto) 75.4 % Lymph % (Auto) 9.2 % [place] % (Auto) 9.5 % Eos % (Auto) 4.2 % Baso % (Auto) 0.7 % Neut # (Auto) 7.23 H (1.40-6.50) K/uL Lymph # (Auto) 0.88 L (1.20-3.40) K/uL [place] # (Auto) 0.91 H (0.11-0.59) K/uL Eos # (Auto) 0.40 (0.00-0.50) K/uL Baso # (Auto) 0.07 (0.00-0.20) K/uL Immature Gran # (Auto) 0.10 (0.01-0.20) K/uL ESR (0-20) mm/hr PT 20.3 H (9.0-12.0) Seconds INR 2.0 H (0.9-1.1) APTT (21-31) Seconds PTT Ratio Sodium 132 L (136-145) mmol/L Potassium 4.8 (3.5-5.1) mmol/L Chloride 98 (98-107) mmol/L Carbon Dioxide 23 (21-32) mmol/L Anion Gap 11 (3-11) BUN 120 H (6-23) mg/dl Creatinine 5.19 H* D (0.6-1.4) mg/dl Est Cr Clr Drug Dosing 12.2 ml/min eGFR 10.35 BUN/Creatinine Ratio 23.1 H (10-20) Glucose 141 H (70-99(Fasting)) mg/dl POC Glucose 210 H 143 H (70-99) mg/dl Lactate (0.4-2.0) mmol/L Calcium 9.9 (8.6-10.3) mg/dl Phosphorus 3.7 (2.5-4.9) mg/dl Magnesium 1.8 (1.7-2.4) mg/dl Iron (35-175) mcg/dl TIBC (250-450) mcg/dl Transferrin (200-360) mg/dl Transferrin % Sat (20-50) % Ferritin (8-388) ng/ml Total Bilirubin 1.1 H (0.2-1.0) mg/dl AST 24 (13-39) U/L ALT 27 (7-52) U/L Alkaline Phosphatase 190 H (34-104) U/L C-Reactive Protein (0-0.5) mg/dl Total Protein 6.7 (6.0-8.3) gm/dl Albumin 3.6 (3.4-5.0) gm/dl Globulin 3.1 (2.5-4.0) gm/dl Albumin/Globulin Ratio 1.2 (0.9-2) Vitamin B12 (180-914) pg/ml Folate (>5.38) ng/ml Procalcitonin (0-0.5) ng/ml Urine Color Urine Appearance (Clear) Urine pH (4.5-7.5) Ur Specific [place] (1.000-1.030) Urine Protein (Negative) Urine Glucose (UA) (Negative) Urine Ketones (Negative) Urine Blood (Negative) Urine Nitrite (Negative) Urine Bilirubin (Negative) Urine Urobilinogen (Negative) Ur Leukocyte Esterase (Negative) Urine WBC (Auto) (0-5) /hpf Urine RBC (Auto) (0-2) /hpf U Hyaline Cast (Auto) (0-2) /lpf U Epithel Cells (Auto) (0-2) /hpf Urine Bacteria (Auto) (None Seen) Adenovirus (PCR) (NotDetected) B. pertussis DNA (PCR) (NotDetected) B.parapertussis DNA PCR (NotDetected) C. pneumoniae DNA (PCR) (NotDetected) Coronavirus OC43 (PCR) (NotDetected) Coronavirus HKU1 (PCR) (NotDetected) Coronavirus 229E (PCR) (NotDetected) SARS-CoV-2 (PCR) (NotDetected) Coronavirus NL63 (PCR) (NotDetected) Human Metapneumovir PCR (NotDetected) Influenza Type A (PCR) (NotDetected) Influenza Type B (PCR) (NotDetected) M. pneumoniae (PCR) (NotDetected) Parainfluenza 1 (PCR) (NotDetected) Parainfluenza 2 (PCR) (NotDetected) Parainfluenza 3 (PCR) (NotDetected) Parainfluenza 4 (PCR) (NotDetected) RSV (PCR) (NotDetected) Entero/Rhino (PCR) (NotDetected) 12/24/24 12/24/24 12/24/24 Range/Units 20:16 17:17 14:40 WBC (4.8-10.8) K/ul RBC (4.70-6.10) M/uL Hgb (14.0-18.0) g/dl Hct (42.0-52.0) % MCV (80.0-100.0) fL MCH (25.0-34.0) pg MCHC (32.0-36.0) g/dL RDW Std Deviation (36.4-46.3) fL RDW Coeff of Yanira (11.5-14.5) % Plt Count (130-400) K/uL MPV (9.4-12.4) fL Immature Gran % (Auto) % Neut % (Auto) % Lymph % (Auto) % [place] % (Auto) % Eos % (Auto) % Baso % (Auto) % Neut # (Auto) (1.40-6.50) K/uL Lymph # (Auto) (1.20-3.40) K/uL [place] # (Auto) (0.11-0.59) K/uL Eos # (Auto) (0.00-0.50) K/uL Baso # (Auto) (0.00-0.20) K/uL Immature Gran # (Auto) (0.01-0.20) K/uL ESR (0-20) mm/hr PT (9.0-12.0) Seconds INR (0.9-1.1) APTT (21-31) Seconds PTT Ratio Sodium (136-145) mmol/L Potassium (3.5-5.1) mmol/L Chloride (98-107) mmol/L Carbon Dioxide (21-32) mmol/L Anion Gap (3-11) BUN (6-23) mg/dl Creatinine (0.6-1.4) mg/dl Est Cr Clr Drug Dosing ml/min eGFR BUN/Creatinine Ratio (10-20) Glucose (70-99(Fasting)) mg/dl POC Glucose 199 H 129 H (70-99) mg/dl Lactate (0.4-2.0) mmol/L Calcium (8.6-10.3) mg/dl Phosphorus (2.5-4.9) mg/dl Magnesium (1.7-2.4) mg/dl Iron (35-175) mcg/dl TIBC (250-450) mcg/dl Transferrin (200-360) mg/dl Transferrin % Sat (20-50) % Ferritin (8-388) ng/ml Total Bilirubin (0.2-1.0) mg/dl AST (13-39) U/L ALT (7-52) U/L Alkaline Phosphatase (34-104) U/L C-Reactive Protein (0-0.5) mg/dl Total Protein (6.0-8.3) gm/dl Albumin (3.4-5.0) gm/dl Globulin (2.5-4.0) gm/dl Albumin/Globulin Ratio (0.9-2) Vitamin B12 (180-914) pg/ml Folate (>5.38) ng/ml Procalcitonin (0-0.5) ng/ml Urine Color Yellow Urine Appearance Clear (Clear) Urine pH 5.5 (4.5-7.5) Ur Specific [place] 1.012 (1.000-1.030) Urine Protein 1+ H (Negative) Urine Glucose (UA) Negative (Negative) Urine Ketones Negative (Negative) Urine Blood Negative (Negative) Urine Nitrite Negative (Negative) Urine Bilirubin Negative (Negative) Urine Urobilinogen Negative (Negative) Ur Leukocyte Esterase Negative (Negative) Urine WBC (Auto) 0-5 (0-5) /hpf Urine RBC (Auto) 0-2 (0-2) /hpf U Hyaline Cast (Auto) 0-2 (0-2) /lpf U Epithel Cells (Auto) 0-2 (0-2) /hpf Urine Bacteria (Auto) None Seen (None Seen) Adenovirus (PCR) (NotDetected) B. pertussis DNA (PCR) (NotDetected) B.parapertussis DNA PCR (NotDetected) C. pneumoniae DNA (PCR) (NotDetected) Coronavirus OC43 (PCR) (NotDetected) Coronavirus HKU1 (PCR) (NotDetected) Coronavirus 229E (PCR) (NotDetected) SARS-CoV-2 (PCR) (NotDetected) Coronavirus NL63 (PCR) (NotDetected) Human Metapneumovir PCR (NotDetected) Influenza Type A (PCR) (NotDetected) Influenza Type B (PCR) (NotDetected) M. pneumoniae (PCR) (NotDetected) Parainfluenza 1 (PCR) (NotDetected) Parainfluenza 2 (PCR) (NotDetected) Parainfluenza 3 (PCR) (NotDetected) Parainfluenza 4 (PCR) (NotDetected) RSV (PCR) (NotDetected) Entero/Rhino (PCR) (NotDetected) 12/24/24 12/24/24 12/24/24 Range/Units 12:00 07:58 05:28 WBC 9.24 (4.8-10.8) K/ul RBC 3.59 L (4.70-6.10) M/uL Hgb 9.8 L (14.0-18.0) g/dl Hct 30.6 L (42.0-52.0) % MCV 85.2 (80.0-100.0) fL MCH 27.3 (25.0-34.0) pg MCHC 32.0 (32.0-36.0) g/dL RDW Std Deviation 54.8 H (36.4-46.3) fL RDW Coeff of Yanira 17.5 H (11.5-14.5) % Plt Count 145 (130-400) K/uL MPV 12.1 (9.4-12.4) fL Immature Gran % (Auto) 0.9 % Neut % (Auto) 77.2 % Lymph % (Auto) 9.2 % [place] % (Auto) 8.1 % Eos % (Auto) 4.1 % Baso % (Auto) 0.5 % Neut # (Auto) 7.13 H (1.40-6.50) K/uL Lymph # (Auto) 0.85 L (1.20-3.40) K/uL [place] # (Auto) 0.75 H (0.11-0.59) K/uL Eos # (Auto) 0.38 (0.00-0.50) K/uL Baso # (Auto) 0.05 (0.00-0.20) K/uL Immature Gran # (Auto) 0.08 (0.01-0.20) K/uL ESR (0-20) mm/hr PT 20.9 H (9.0-12.0) Seconds INR 2.1 H (0.9-1.1) APTT (21-31) Seconds PTT Ratio Sodium 131 L (136-145) mmol/L Potassium 4.6 (3.5-5.1) mmol/L Chloride 97 L (98-107) mmol/L Carbon Dioxide 23 (21-32) mmol/L Anion Gap 11 (3-11) BUN 110 H (6-23) mg/dl Creatinine 4.80 H* D (0.6-1.4) mg/dl Est Cr Clr Drug Dosing 13.0 ml/min eGFR 11.37 BUN/Creatinine Ratio 22.9 H (10-20) Glucose 116 H (70-99(Fasting)) mg/dl POC Glucose 175 H 130 H (70-99) mg/dl Lactate (0.4-2.0) mmol/L Calcium 9.5 (8.6-10.3) mg/dl Phosphorus 3.7 (2.5-4.9) mg/dl Magnesium 1.8 (1.7-2.4) mg/dl Iron 18 L (35-175) mcg/dl TIBC 220 L (250-450) mcg/dl Transferrin 157 L (200-360) mg/dl Transferrin % Sat 8 L (20-50) % Ferritin 228.9 (8-388) ng/ml Total Bilirubin 1.1 H (0.2-1.0) mg/dl AST 28 (13-39) U/L ALT 26 (7-52) U/L Alkaline Phosphatase 166 H (34-104) U/L C-Reactive Protein (0-0.5) mg/dl Total Protein 6.5 (6.0-8.3) gm/dl Albumin 3.5 (3.4-5.0) gm/dl Globulin 3.0 (2.5-4.0) gm/dl Albumin/Globulin Ratio 1.2 (0.9-2) Vitamin B12 1394 H (180-914) pg/ml Folate 20.69 (>5.38) ng/ml Procalcitonin (0-0.5) ng/ml Urine Color Urine Appearance (Clear) Urine pH (4.5-7.5) Ur Specific [place] (1.000-1.030) Urine Protein (Negative) Urine Glucose (UA) (Negative) Urine Ketones (Negative) Urine Blood (Negative) Urine Nitrite (Negative) Urine Bilirubin (Negative) Urine Urobilinogen (Negative) Ur Leukocyte Esterase (Negative) Urine WBC (Auto) (0-5) /hpf Urine RBC (Auto) (0-2) /hpf U Hyaline Cast (Auto) (0-2) /lpf U Epithel Cells (Auto) (0-2) /hpf Urine Bacteria (Auto) (None Seen) Adenovirus (PCR) (NotDetected) B. pertussis DNA (PCR) (NotDetected) B.parapertussis DNA PCR (NotDetected) C. pneumoniae DNA (PCR) (NotDetected) Coronavirus OC43 (PCR) (NotDetected) Coronavirus HKU1 (PCR) (NotDetected) Coronavirus 229E (PCR) (NotDetected) SARS-CoV-2 (PCR) (NotDetected) Coronavirus NL63 (PCR) (NotDetected) Human Metapneumovir PCR (NotDetected) Influenza Type A (PCR) (NotDetected) Influenza Type B (PCR) (NotDetected) M. pneumoniae (PCR) (NotDetected) Parainfluenza 1 (PCR) (NotDetected) Parainfluenza 2 (PCR) (NotDetected) Parainfluenza 3 (PCR) (NotDetected) Parainfluenza 4 (PCR) (NotDetected) RSV (PCR) (NotDetected) Entero/Rhino (PCR) (NotDetected) 12/23/24 12/23/24 12/23/24 Range/Units 20:30 16:57 11:45 WBC (4.8-10.8) K/ul RBC (4.70-6.10) M/uL Hgb (14.0-18.0) g/dl Hct (42.0-52.0) % MCV (80.0-100.0) fL MCH (25.0-34.0) pg MCHC (32.0-36.0) g/dL RDW Std Deviation (36.4-46.3) fL RDW Coeff of Yanira (11.5-14.5) % Plt Count (130-400) K/uL MPV (9.4-12.4) fL Immature Gran % (Auto) % Neut % (Auto) % Lymph % (Auto) % [place] % (Auto) % Eos % (Auto) % Baso % (Auto) % Neut # (Auto) (1.40-6.50) K/uL Lymph # (Auto) (1.20-3.40) K/uL [place] # (Auto) (0.11-0.59) K/uL Eos # (Auto) (0.00-0.50) K/uL Baso # (Auto) (0.00-0.20) K/uL Immature Gran # (Auto) (0.01-0.20) K/uL ESR (0-20) mm/hr PT (9.0-12.0) Seconds INR (0.9-1.1) APTT (21-31) Seconds PTT Ratio Sodium (136-145) mmol/L Potassium (3.5-5.1) mmol/L Chloride (98-107) mmol/L Carbon Dioxide (21-32) mmol/L Anion Gap (3-11) BUN (6-23) mg/dl Creatinine (0.6-1.4) mg/dl Est Cr Clr Drug Dosing ml/min eGFR BUN/Creatinine Ratio (10-20) Glucose (70-99(Fasting)) mg/dl POC Glucose 183 H 140 H 267 H (70-99) mg/dl Lactate (0.4-2.0) mmol/L Calcium (8.6-10.3) mg/dl Phosphorus (2.5-4.9) mg/dl Magnesium (1.7-2.4) mg/dl Iron (35-175) mcg/dl TIBC (250-450) mcg/dl Transferrin (200-360) mg/dl Transferrin % Sat (20-50) % Ferritin (8-388) ng/ml Total Bilirubin (0.2-1.0) mg/dl AST (13-39) U/L ALT (7-52) U/L Alkaline Phosphatase (34-104) U/L C-Reactive Protein (0-0.5) mg/dl Total Protein (6.0-8.3) gm/dl Albumin (3.4-5.0) gm/dl Globulin (2.5-4.0) gm/dl Albumin/Globulin Ratio (0.9-2) Vitamin B12 (180-914) pg/ml Folate (>5.38) ng/ml Procalcitonin (0-0.5) ng/ml Urine Color Urine Appearance (Clear) Urine pH (4.5-7.5) Ur Specific [place] (1.000-1.030) Urine Protein (Negative) Urine Glucose (UA) (Negative) Urine Ketones (Negative) Urine Blood (Negative) Urine Nitrite (Negative) Urine Bilirubin (Negative) Urine Urobilinogen (Negative) Ur Leukocyte Esterase (Negative) Urine WBC (Auto) (0-5) /hpf Urine RBC (Auto) (0-2) /hpf U Hyaline Cast (Auto) (0-2) /lpf U Epithel Cells (Auto) (0-2) /hpf Urine Bacteria (Auto) (None Seen) Adenovirus (PCR) (NotDetected) B. pertussis DNA (PCR) (NotDetected) B.parapertussis DNA PCR (NotDetected) C. pneumoniae DNA (PCR) (NotDetected) Coronavirus OC43 (PCR) (NotDetected) Coronavirus HKU1 (PCR) (NotDetected) Coronavirus 229E (PCR) (NotDetected) SARS-CoV-2 (PCR) (NotDetected) Coronavirus NL63 (PCR) (NotDetected) Human Metapneumovir PCR (NotDetected) Influenza Type A (PCR) (NotDetected) Influenza Type B (PCR) (NotDetected) M. pneumoniae (PCR) (NotDetected) Parainfluenza 1 (PCR) (NotDetected) Parainfluenza 2 (PCR) (NotDetected) Parainfluenza 3 (PCR) (NotDetected) Parainfluenza 4 (PCR) (NotDetected) RSV (PCR) (NotDetected) Entero/Rhino (PCR) (NotDetected) 12/23/24 12/23/24 12/22/24 Range/Units 08:05 05:26 20:34 WBC 10.31 (4.8-10.8) K/ul RBC 3.62 L (4.70-6.10) M/uL Hgb 9.8 L (14.0-18.0) g/dl Hct 31.2 L (42.0-52.0) % MCV 86.2 (80.0-100.0) fL MCH 27.1 (25.0-34.0) pg MCHC 31.4 L (32.0-36.0) g/dL RDW Std Deviation 55.5 H (36.4-46.3) fL RDW Coeff of Yanira 17.4 H (11.5-14.5) % Plt Count 125 L (130-400) K/uL MPV 11.4 (9.4-12.4) fL Immature Gran % (Auto) 0.9 % Neut % (Auto) 81.6 % Lymph % (Auto) 7.3 % [place] % (Auto) 7.0 % Eos % (Auto) 2.7 % Baso % (Auto) 0.5 % Neut # (Auto) 8.42 H (1.40-6.50) K/uL Lymph # (Auto) 0.75 L (1.20-3.40) K/uL [place] # (Auto) 0.72 H (0.11-0.59) K/uL Eos # (Auto) 0.28 (0.00-0.50) K/uL Baso # (Auto) 0.05 (0.00-0.20) K/uL Immature Gran # (Auto) 0.09 (0.01-0.20) K/uL ESR (0-20) mm/hr PT 21.4 H (9.0-12.0) Seconds INR 2.1 H (0.9-1.1) APTT (21-31) Seconds PTT Ratio Sodium 132 L (136-145) mmol/L Potassium 4.3 (3.5-5.1) mmol/L Chloride 99 (98-107) mmol/L Carbon Dioxide 23 (21-32) mmol/L Anion Gap 10 (3-11) BUN 101 H (6-23) mg/dl Creatinine 4.22 H D (0.6-1.4) mg/dl Est Cr Clr Drug Dosing 14.7 ml/min eGFR 13.27 BUN/Creatinine Ratio 23.9 H (10-20) Glucose 114 H (70-99(Fasting)) mg/dl POC Glucose 111 H 202 H (70-99) mg/dl Lactate (0.4-2.0) mmol/L Calcium 9.7 (8.6-10.3) mg/dl Phosphorus 4.0 (2.5-4.9) mg/dl Magnesium 1.9 (1.7-2.4) mg/dl Iron (35-175) mcg/dl TIBC (250-450) mcg/dl Transferrin (200-360) mg/dl Transferrin % Sat (20-50) % Ferritin (8-388) ng/ml Total Bilirubin 1.1 H (0.2-1.0) mg/dl AST 22 (13-39) U/L ALT 18 (7-52) U/L Alkaline Phosphatase 128 H (34-104) U/L C-Reactive Protein (0-0.5) mg/dl Total Protein 6.5 (6.0-8.3) gm/dl Albumin 3.6 (3.4-5.0) gm/dl Globulin 2.9 (2.5-4.0) gm/dl Albumin/Globulin Ratio 1.2 (0.9-2) Vitamin B12 (180-914) pg/ml Folate (>5.38) ng/ml Procalcitonin (0-0.5) ng/ml Urine Color Urine Appearance (Clear) Urine pH (4.5-7.5) Ur Specific [place] (1.000-1.030) Urine Protein (Negative) Urine Glucose (UA) (Negative) Urine Ketones (Negative) Urine Blood (Negative) Urine Nitrite (Negative) Urine Bilirubin (Negative) Urine Urobilinogen (Negative) Ur Leukocyte Esterase (Negative) Urine WBC (Auto) (0-5) /hpf Urine RBC (Auto) (0-2) /hpf U Hyaline Cast (Auto) (0-2) /lpf U Epithel Cells (Auto) (0-2) /hpf Urine Bacteria (Auto) (None Seen) Adenovirus (PCR) (NotDetected) B. pertussis DNA (PCR) (NotDetected) B.parapertussis DNA PCR (NotDetected) C. pneumoniae DNA (PCR) (NotDetected) Coronavirus OC43 (PCR) (NotDetected) Coronavirus HKU1 (PCR) (NotDetected) Coronavirus 229E (PCR) (NotDetected) SARS-CoV-2 (PCR) (NotDetected) Coronavirus NL63 (PCR) (NotDetected) Human Metapneumovir PCR (NotDetected) Influenza Type A (PCR) (NotDetected) Influenza Type B (PCR) (NotDetected) M. pneumoniae (PCR) (NotDetected) Parainfluenza 1 (PCR) (NotDetected) Parainfluenza 2 (PCR) (NotDetected) Parainfluenza 3 (PCR) (NotDetected) Parainfluenza 4 (PCR) (NotDetected) RSV (PCR) (NotDetected) Entero/Rhino (PCR) (NotDetected) 12/22/24 12/22/24 12/22/24 Range/Units 17:56 11:53 08:54 WBC (4.8-10.8) K/ul RBC (4.70-6.10) M/uL Hgb (14.0-18.0) g/dl Hct (42.0-52.0) % MCV (80.0-100.0) fL MCH (25.0-34.0) pg MCHC (32.0-36.0) g/dL RDW Std Deviation (36.4-46.3) fL RDW Coeff of Yanira (11.5-14.5) % Plt Count (130-400) K/uL MPV (9.4-12.4) fL Immature Gran % (Auto) % Neut % (Auto) % Lymph % (Auto) % [place] % (Auto) % Eos % (Auto) % Baso % (Auto) % Neut # (Auto) (1.40-6.50) K/uL Lymph # (Auto) (1.20-3.40) K/uL [place] # (Auto) (0.11-0.59) K/uL Eos # (Auto) (0.00-0.50) K/uL Baso # (Auto) (0.00-0.20) K/uL Immature Gran # (Auto) (0.01-0.20) K/uL ESR (0-20) mm/hr PT (9.0-12.0) Seconds INR (0.9-1.1) APTT (21-31) Seconds PTT Ratio Sodium (136-145) mmol/L Potassium (3.5-5.1) mmol/L Chloride (98-107) mmol/L Carbon Dioxide (21-32) mmol/L Anion Gap (3-11) BUN (6-23) mg/dl Creatinine (0.6-1.4) mg/dl Est Cr Clr Drug Dosing ml/min eGFR BUN/Creatinine Ratio (10-20) Glucose (70-99(Fasting)) mg/dl POC Glucose 155 H 147 H 96 (70-99) mg/dl Lactate (0.4-2.0) mmol/L Calcium (8.6-10.3) mg/dl Phosphorus (2.5-4.9) mg/dl Magnesium (1.7-2.4) mg/dl Iron (35-175) mcg/dl TIBC (250-450) mcg/dl Transferrin (200-360) mg/dl Transferrin % Sat (20-50) % Ferritin (8-388) ng/ml Total Bilirubin (0.2-1.0) mg/dl AST (13-39) U/L ALT (7-52) U/L Alkaline Phosphatase (34-104) U/L C-Reactive Protein (0-0.5) mg/dl Total Protein (6.0-8.3) gm/dl Albumin (3.4-5.0) gm/dl Globulin (2.5-4.0) gm/dl Albumin/Globulin Ratio (0.9-2) Vitamin B12 (180-914) pg/ml Folate (>5.38) ng/ml Procalcitonin (0-0.5) ng/ml Urine Color Urine Appearance (Clear) Urine pH (4.5-7.5) Ur Specific [place] (1.000-1.030) Urine Protein (Negative) Urine Glucose (UA) (Negative) Urine Ketones (Negative) Urine Blood (Negative) Urine Nitrite (Negative) Urine Bilirubin (Negative) Urine Urobilinogen (Negative) Ur Leukocyte Esterase (Negative) Urine WBC (Auto) (0-5) /hpf Urine RBC (Auto) (0-2) /hpf U Hyaline Cast (Auto) (0-2) /lpf U Epithel Cells (Auto) (0-2) /hpf Urine Bacteria (Auto) (None Seen) Adenovirus (PCR) (NotDetected) B. pertussis DNA (PCR) (NotDetected) B.parapertussis DNA PCR (NotDetected) C. pneumoniae DNA (PCR) (NotDetected) Coronavirus OC43 (PCR) (NotDetected) Coronavirus HKU1 (PCR) (NotDetected) Coronavirus 229E (PCR) (NotDetected) SARS-CoV-2 (PCR) (NotDetected) Coronavirus NL63 (PCR) (NotDetected) Human Metapneumovir PCR (NotDetected) Influenza Type A (PCR) (NotDetected) Influenza Type B (PCR) (NotDetected) M. pneumoniae (PCR) (NotDetected) Parainfluenza 1 (PCR) (NotDetected) Parainfluenza 2 (PCR) (NotDetected) Parainfluenza 3 (PCR) (NotDetected) Parainfluenza 4 (PCR) (NotDetected) RSV (PCR) (NotDetected) Entero/Rhino (PCR) (NotDetected) 12/22/24 12/21/24 12/21/24 Range/Units 07:22 21:48 18:42 WBC 10.49 (4.8-10.8) K/ul RBC 3.31 L (4.70-6.10) M/uL Hgb 9.2 L (14.0-18.0) g/dl Hct 29.2 L (42.0-52.0) % MCV 88.2 (80.0-100.0) fL MCH 27.8 (25.0-34.0) pg MCHC 31.5 L (32.0-36.0) g/dL RDW Std Deviation 57.2 H (36.4-46.3) fL RDW Coeff of Yanira 17.6 H (11.5-14.5) % Plt Count 107 L (130-400) K/uL MPV 10.5 (9.4-12.4) fL Immature Gran % (Auto) 0.7 % Neut % (Auto) 83.7 % Lymph % (Auto) 7.5 % [place] % (Auto) 6.8 % Eos % (Auto) 0.9 % Baso % (Auto) 0.4 % Neut # (Auto) 8.79 H (1.40-6.50) K/uL Lymph # (Auto) 0.79 L (1.20-3.40) K/uL [place] # (Auto) 0.71 H (0.11-0.59) K/uL Eos # (Auto) 0.09 (0.00-0.50) K/uL Baso # (Auto) 0.04 (0.00-0.20) K/uL Immature Gran # (Auto) 0.07 (0.01-0.20) K/uL ESR (0-20) mm/hr PT 22.0 H (9.0-12.0) Seconds INR 2.2 H (0.9-1.1) APTT (21-31) Seconds PTT Ratio Sodium 137 (136-145) mmol/L Potassium 3.7 (3.5-5.1) mmol/L Chloride 104 (98-107) mmol/L Carbon Dioxide 25 (21-32) mmol/L Anion Gap 8 (3-11) BUN 86 H (6-23) mg/dl Creatinine 3.78 H (0.6-1.4) mg/dl Est Cr Clr Drug Dosing 16.4 ml/min eGFR 15.14 BUN/Creatinine Ratio 22.8 H (10-20) Glucose 102 H (70-99(Fasting)) mg/dl POC Glucose (70-99) mg/dl Lactate 1.3 (0.4-2.0) mmol/L Calcium 8.8 (8.6-10.3) mg/dl Phosphorus (2.5-4.9) mg/dl Magnesium (1.7-2.4) mg/dl Iron (35-175) mcg/dl TIBC (250-450) mcg/dl Transferrin (200-360) mg/dl Transferrin % Sat (20-50) % Ferritin (8-388) ng/ml Total Bilirubin (0.2-1.0) mg/dl AST (13-39) U/L ALT (7-52) U/L Alkaline Phosphatase (34-104) U/L C-Reactive Protein (0-0.5) mg/dl Total Protein (6.0-8.3) gm/dl Albumin (3.4-5.0) gm/dl Globulin (2.5-4.0) gm/dl Albumin/Globulin Ratio (0.9-2) Vitamin B12 (180-914) pg/ml Folate (>5.38) ng/ml Procalcitonin (0-0.5) ng/ml Urine Color Urine Appearance (Clear) Urine pH (4.5-7.5) Ur Specific [place] (1.000-1.030) Urine Protein (Negative) Urine Glucose (UA) (Negative) Urine Ketones (Negative) Urine Blood (Negative) Urine Nitrite (Negative) Urine Bilirubin (Negative) Urine Urobilinogen (Negative) Ur Leukocyte Esterase (Negative) Urine WBC (Auto) (0-5) /hpf Urine RBC (Auto) (0-2) /hpf U Hyaline Cast (Auto) (0-2) /lpf U Epithel Cells (Auto) (0-2) /hpf Urine Bacteria (Auto) (None Seen) Adenovirus (PCR) Not Detected (NotDetected) B. pertussis DNA (PCR) Not Detected (NotDetected) B.parapertussis DNA PCR Not Detected (NotDetected) C. pneumoniae DNA (PCR) Not Detected (NotDetected) Coronavirus OC43 (PCR) Not Detected (NotDetected) Coronavirus HKU1 (PCR) Not Detected (NotDetected) Coronavirus 229E (PCR) Not Detected (NotDetected) SARS-CoV-2 (PCR) Not Detected (NotDetected) Coronavirus NL63 (PCR) Not Detected (NotDetected) Human Metapneumovir PCR Not Detected (NotDetected) Influenza Type A (PCR) Not Detected (NotDetected) Influenza Type B (PCR) Not Detected (NotDetected) M. pneumoniae (PCR) Not Detected (NotDetected) Parainfluenza 1 (PCR) Not Detected (NotDetected) Parainfluenza 2 (PCR) Not Detected (NotDetected) Parainfluenza 3 (PCR) Not Detected (NotDetected) Parainfluenza 4 (PCR) Not Detected (NotDetected) RSV (PCR) Not Detected (NotDetected) Entero/Rhino (PCR) Not Detected (NotDetected) 12/21/24 12/21/24 Range/Units 17:47 17:22 WBC 15.51 H (4.8-10.8) K/ul RBC 3.98 L (4.70-6.10) M/uL Hgb 10.8 L (14.0-18.0) g/dl Hct 34.9 L (42.0-52.0) % MCV 87.7 (80.0-100.0) fL MCH 27.1 (25.0-34.0) pg MCHC 30.9 L (32.0-36.0) g/dL RDW Std Deviation 56.0 H (36.4-46.3) fL RDW Coeff of Yanira 17.6 H (11.5-14.5) % Plt Count 164 (130-400) K/uL MPV 11.8 (9.4-12.4) fL Immature Gran % (Auto) 1.3 % Neut % (Auto) 85.5 % Lymph % (Auto) 5.6 % [place] % (Auto) 7.0 % Eos % (Auto) 0.3 % Baso % (Auto) 0.3 % Neut # (Auto) 13.27 H (1.40-6.50) K/uL Lymph # (Auto) 0.87 L (1.20-3.40) K/uL [place] # (Auto) 1.08 H (0.11-0.59) K/uL Eos # (Auto) 0.04 (0.00-0.50) K/uL Baso # (Auto) 0.05 (0.00-0.20) K/uL Immature Gran # (Auto) 0.20 (0.01-0.20) K/uL ESR 74 H (0-20) mm/hr PT 18.7 H (9.0-12.0) Seconds INR 1.8 H (0.9-1.1) APTT 36 H (21-31) Seconds PTT Ratio 1.3 Sodium 135 L (136-145) mmol/L Potassium 4.3 (3.5-5.1) mmol/L Chloride 98 (98-107) mmol/L Carbon Dioxide 27 (21-32) mmol/L Anion Gap 10 (3-11) BUN 89 H (6-23) mg/dl Creatinine 3.92 H (0.6-1.4) mg/dl Est Cr Clr Drug Dosing 15.8 ml/min eGFR 14.50 BUN/Creatinine Ratio 22.7 H (10-20) Glucose 111 H (70-99(Fasting)) mg/dl POC Glucose (70-99) mg/dl Lactate (0.4-2.0) mmol/L Calcium 10.2 (8.6-10.3) mg/dl Phosphorus (2.5-4.9) mg/dl Magnesium 2.0 (1.7-2.4) mg/dl Iron (35-175) mcg/dl TIBC (250-450) mcg/dl Transferrin (200-360) mg/dl Transferrin % Sat (20-50) % Ferritin (8-388) ng/ml Total Bilirubin 1.6 H (0.2-1.0) mg/dl AST 18 (13-39) U/L ALT 18 (7-52) U/L Alkaline Phosphatase 156 H (34-104) U/L C-Reactive Protein 10.86 H (0-0.5) mg/dl Total Protein 7.0 (6.0-8.3) gm/dl Albumin 4.2 (3.4-5.0) gm/dl Globulin 2.8 (2.5-4.0) gm/dl Albumin/Globulin Ratio 1.5 (0.9-2) Vitamin B12 (180-914) pg/ml Folate (>5.38) ng/ml Procalcitonin 0.20 (0-0.5) ng/ml Urine Color Yellow Urine Appearance Clear (Clear) Urine pH 5.0 (4.5-7.5) Ur Specific [place] 1.013 (1.000-1.030) Urine Protein 2+ H (Negative) Urine Glucose (UA) Negative (Negative) Urine Ketones Negative (Negative) Urine Blood Negative (Negative) Urine Nitrite Negative (Negative) Urine Bilirubin Negative (Negative) Urine Urobilinogen Negative (Negative) Ur Leukocyte Esterase Negative (Negative) Urine WBC (Auto) 0-5 (0-5) /hpf Urine RBC (Auto) 0-2 (0-2) /hpf U Hyaline Cast (Auto) 3-5 H (0-2) /lpf U Epithel Cells (Auto) 0-2 (0-2) /hpf Urine Bacteria (Auto) None Seen (None Seen) Adenovirus (PCR) (NotDetected) B. pertussis DNA (PCR) (NotDetected) B.parapertussis DNA PCR (NotDetected) C. pneumoniae DNA (PCR) (NotDetected) Coronavirus OC43 (PCR) (NotDetected) Coronavirus HKU1 (PCR) (NotDetected) Coronavirus 229E (PCR) (NotDetected) SARS-CoV-2 (PCR) (NotDetected) Coronavirus NL63 (PCR) (NotDetected) Human Metapneumovir PCR (NotDetected) Influenza Type A (PCR) (NotDetected) Influenza Type B (PCR) (NotDetected) M. pneumoniae (PCR) (NotDetected) Parainfluenza 1 (PCR) (NotDetected) Parainfluenza 2 (PCR) (NotDetected) Parainfluenza 3 (PCR) (NotDetected) Parainfluenza 4 (PCR) (NotDetected) RSV (PCR) (NotDetected) Entero/Rhino (PCR) (NotDetected) Diagnostic Findings Tibia/Fibula X-Ray 12/21/24 17:39 EXAMINATION: X-ray tibia fibula right 2 view CLINICAL HISTORY: Infection mid tibia PRIORS: None TECHNIQUE: A total knee arthroplasty is present with near anatomic alignment. Moderate diffuse edema present throughout the visualized lower leg in the [id number]. FINDINGS: No periprosthetic fracture or lucency. The tibial cortex is unremarkable with no periosteal reaction or erosion. No fracture or dislocation. Fibula is unremarkable. Vascular atherosclerotic disease noted. No subcutaneous gas or radiopaque foreign body. IMPRESSION: Subcutaneous edema/swelling with no plain film evidence of a underlying osseous abnormality. Electronically signed by Sheila Hanna 12-21-2024 6:06 PM Chest X-Ray 12/21/24 19:53 Exam(s): XR CXR 1 VIEW EXAM: XR Chest, 1 View CLINICAL HISTORY: Reason for exam: sob. renal failure. TECHNIQUE: Frontal view of the chest. COMPARISON: X-ray January 19, 2023 FINDINGS: Lungs: Interstitial and airspace opacity in the left upper lobe, atelectasis versus infiltrate. The right lung is clear. Pleural space: No pleural effusion. No pneumothorax. Heart: Unremarkable. No cardiomegaly. IMPRESSION: Interstitial and airspace opacity in the left upper lobe, atelectasis versus infiltrate. The right lung is clear. Electronically signed by: Bert Peña MD 12/21/24 20:[address] 12/21/24 20:35 Exam(s): CT EXTREMITY RIGHT LOWER Without Contrast EXAM: CT Right Lower Extremity Without Intravenous Contrast CLINICAL HISTORY: Reason for exam: swelling, wound. TECHNIQUE: Axial computed tomography images of the right lower extremity without intravenous contrast. CTDI is 24.91 mGy and DLP is 1240.77 mGy-cm. Automated exposure control was utilized for the study. A dose lowering technique was utilized adhering to the principles of ALARA. COMPARISON: Same day right tib-fib radiographs FINDINGS: Bones/joints: Right knee arthroplasty. No acute fracture or dislocation identified. Soft tissues: Diffuse soft tissue swelling of fat stranding which may represent edema. Cellulitis is not excluded. Vasculature: Vascular calcifications. IMPRESSION: Diffuse soft tissue swelling of fat stranding which may represent edema. Cellulitis is not excluded. Electronically signed by: Perfecto Garcia M.D. 12/22/24 00:45 AM PG Care Time/CCT Total # of Minutes Spent Total Time Spent with Patient: Total time spent is greater than 50% in coordination of care (as documented) at patient's floor/unit and/or counseling patient: I spent 90 minutes overall addressing this case: 15 min in medical data review/discussion with referring provider(s) and/or preparation for the visit 15 min in direct interaction with the patient/exam 30 min in Advance Care Planning/Goals of Care discussions as detailed above in note (must be >16min) 15 min in subsequent review and synthesis of assessment and plan 15 min communicating with other providers regarding the patient's case: primary team, nephro Advanced Care Planning 95990 Advanced Care Planning 30 [place] [address] IN/OBS CONSULT LVL 4,60M (25 - SIGNIFICANT, SEPARATELY IDENTIFIABLE ) Patient Type New History Comprehensive Exam Comprehensive Medical Decision Making High Complexity Diagnoses Dyspnea and respiratory abnormalities R06.00; R06.89 Weakness generalized R53.1 Discussion about advance care planning held with family member Z71.0 Palliative care by specialist Z51.5 CKD (chronic kidney disease) stage 5, GFR less than 15 ml/min N18.5 Venous stasis ulcers of both lower extremities I83.019; I83.029; L97.919; L97.9 29 Additional Codes Advanced Care Planning - 50342 Advanced Care Planning 30 Min: 19166 Advanced Care Planning 30 Min ([id number])
[2024-12-27 07:34] LABS: Basophils # (auto) 0.06 K/uL (0.00-0.20); Basophils % (auto) 0.8 %; Eosinophils % (auto) 5.1 %; Hematocrit (blood only) 31.7 % (42.0-52.0); Hemoglobin 10.1 g/dl (14.0-18.0); Immature Granulocytes # (auto) 0.19 K/uL (0.01-0.20); Immature Granulocytes % (auto) 2.4 %; Lymphocytes # (auto) 0.81 K/uL (1.20-3.40); Lymphocytes % (auto) 10.3 %; Mean Corpuscular Hemoglobin 27.4 pg (25.0-34.0); Mean Corpuscular Hgb Conc 31.9 g/dL (32.0-36.0); Mean Corpuscular Volume 85.9 fL (80.0-100.0); Mean Platelet Volume 12.4 fL (9.4-12.4); Monocytes # (auto) 0.65 K/uL (0.11-0.59); Monocytes % (auto) 8.2 %; Neutrophils # (auto) 5.78 K/uL (1.40-6.50); Neutrophils % (auto) 73.2 %; Platelet Count 166 K/uL (130-400); RDW Coefficient of Variation 17.6 % (11.5-14.5); RDW Standard Deviation 54.8 fL (36.4-46.3); Red Blood Count 3.69 M/uL (4.70-6.10); White Blood Count 7.89 K/ul (4.8-10.8)
[2024-12-27 07:59] LABS: Albumin Globulin Ratio 1.2 (0.9-2); Albumin Level 3.6 gm/dl (3.4-5.0); Calcium 9.9 mg/dl (8.6-10.3); Creatinine Clr Calc Pharmacy 11.5 ml/min; Magnesium 1.7 mg/dl (1.7-2.4); Phosphorus 4.8 mg/dl (2.5-4.9); Potassium 5.2 mmol/L (3.5-5.1); Total Protein 6.6 gm/dl (6.0-8.3)
[2024-12-27 08:01] LABS: INR 2.1 (0.9-1.1); Prothrombin Time 21.2 Seconds (9.0-12.0)
[2024-12-27 08:15] LABS: BUN Creatinine Ratio 25.4 (10-20)
--- NOTE | 2024-12-27 12:14 | Hospitalist Progress Note ---
Date of Service December 27, 2024 Assessment & Plan (1) Fever: (2) Venous stasis ulcers of both lower extremities: (3) Type 2 diabetes mellitus: (4) Atrial fibrillation: (5) Hypertension: (6) COPD (chronic obstructive pulmonary disease): (7) Chronic heart failure with preserved ejection fraction (HFpEF): (8) CAD (coronary artery disease): Plan Patient is an 84 year old male with PMHx significant for HTN, atrial fibrillation anticoagulated on warfarin, chronic HFpEF, DM II, previous history CKD V on HD and now current CKD IV no longer on HD, CAD, COPD, hypothyroidism, chronic thrombocytopenia, BENI, ABRAN on 2.5L oxygen at bedtime, gout, history amputation left second toe who presented to the ER with concern for wound to right lower leg, profoundly volume overloaded with kidney disease requiring dialysis. Pt currently refusing dialysis. Nephrology recommending palliative care consult as pt refusing dialysis. Palliative Care was consulted, ongoing discussion with pt and family. Followup discussion scheduled for 12/27/24 cancelled by patient's daughter. He is currently being treated for the following: Sepsis Cellulitis Lower extremity wounds Secondary to infected RLE wound History of venous stasis Failed outpatient treatment Wound culture currently growing pseudomonas Blood cultures NGTD XR tib fib unremarkable CT RLE noting cellulitis cannot be ruled out Wound nurse consult Continue with IV Cefepime and doxycycline, complete 10 days of abx rx Consider ID consult Acute hypoxic respiratory failure Dyspnea on exertion Pulmonary HTN hx chronic COPD ABRAN status post surgery/nocturnal hypoxemia on home O2 at night Underlying pulmonary hypertension chest xray noting infiltrate vs atelectasis Neb treatment as needed SOB/wheezing Oxygen supplementation as needed On Cefepime and doxycycline as noted above pulmonology consulted, appreciate recs. Recommended/stated the following: "...Patient's pulmonary issues at this point in time appear chronic and longstanding. No indication for additional evaluation in the acute setting. Would recommend optimization of his underlying volume status with cardiology and nephrology. He can then follow-up with his outpatient [facility] pulmonary group at discharge. He will likely need aggressive rehab..." Continue to monitor Chronic anemia hemoglobin downtrended to 9.8 Anemia panel noting iron deficiency Will defer on IV venofer in the setting of acute severe infection Consider po ferrous sulfate once infection improved Continue to monitor A-fib on metoprolol and Coumadin INR currently therapeutic Noted increasing runs of PVCs on 12/24 metoprolol dose increased Continue to monitor Diastolic Heart Failure Dyspnea on exertion Lower extremity swelling Noted on echo from 2022 Pt with significant lower extremity edema Will defer on diuresis in setting of severe CKD Usually on torsemide 200mg BID at home Cardiology consulted, appreciate recs Nephrology also consulted for volume/fluid management -pt refusing dialysis -palliative care consult CKD creatinine at baseline, past history of dialysis as per records previous history CKD V on HD and now current CKD IV no longer on HD Cr of 3.92 on admission, at baseline Follows with Nephrology Nephrology consulted, appreciate further recs -pt refusing dialysis -palliative care consult Continue to monitor Other Chronic Medical problems: Valvular heart disease (mild AR/TR) DM2 on oral medications, reasonable control as of recent hemoglobin A1c of 7.07 September 2024 Hypothyroidism, euthyroid as of recent outpatient TSH GERD on PPI Rheumatoid arthritis Diet: HH/DMII DVT prophylaxis: on coumadin Dispo: PT/OT recommending rehab, palliative discussion ongoing Admission and Anticipated Discharge Date Admission Date: December 21, 2024 Subjective Pt was seen in the AM States feeling nauseous Denied other concerns Reportedly follow up palliative care meeting today was cancelled by his daughter Physical Exam Physical Exam: General: Alert, oriented. No acute distress Skin: RLE with skin sloughing and noted drainage, LLE with noted chronic skin changes and erythema Psych: Appropriate mood and affect Neuro: hearing loss, difficulty with movements in the bed HEENT: NC/AT CV: irregular Resp: no increased effort of breathing Abdomen: Soft, nontender Extremities:left arm in sling, noted left finger amputation, RLE and LLE with bandages present, +++edema Results & Data Results & Data Vital Signs (Past 12 Hours) Vital Signs Temp Pulse Pulse Resp BP BP Pulse Ox 12/27/24 11:26 36.6 C 64 16 133/69 99 12/27/24 07:47 36.2 C L 68 18 137/78 99 12/27/24 07:24 65 12/27/24 02:52 36.9 C 72 16 120/74 98 O2 Del Method O2 Flow Rate 12/27/24 11:26 Nasal Cannula 2 12/27/24 07:47 Nasal Cannula 2 12/27/24 07:24 12/27/24 02:52 Nasal Cannula 2
--- NOTE | 2024-12-27 12:18 | Nephrology Progress Note ---
Date of Service December 27, 2024 Assessment & Plan (1) CKD (chronic kidney disease) stage 5, GFR less than 15 ml/min: Plan: he has known CKD 4 to stage 5 secondary to longstanding diabetes/hypertension with nephrotic range proteinuria previously on hemodialysis but then taken off after partial recovery and because of his preference. he does get into significant fluid retention from CKD. fluid retention is predominantly CKD related. he has a very high obligatory need of diuretics and he has been on torsemide 200 twice daily for significant time. metolazone has caused severe profound hyponatremia in the past as well as electrolyte imbalance and has not been used since then. Have been suspected adherence issues with taking the torsemide as prescribed either intentionally or by confusion. per Dr Jaramillo, when he is taking the diuretics as prescribed typically he does not have edema -anemia of CKD w/ hgb 10.1 and steady he had 100 mg IV lasix on 12/23 x 2 doses and one dose on 12/24; remain reluctant to give more diuretic now with worsening BUN/creat see 12/26 note for extended discussion about goals of care and pt firm plan for now dialysis, despite family opposition to this; pt remains firm in plan for now HD today suggest stopping labs, moving to comfort measures since pt declines HD and his uremia is progressing; familiy or pt unfortunately cancelled 11 am meeting w/ palliative for today; pt remains very clear and consistent in wishes for no dialysis did discuss goals of care and today's status w/ both hospitalist and palliative. continue supportive care (2) SAM (acute kidney injury): Plan: worseing SAM on CKD 5 w/ BUN up to 140 now and K 5.2 and creat 5.5. his baseline creatinine is hard to pinpoint but anything in the high threes and low 4s would be regarded as within his range. also worth noting that when he gets severe fluid retention there is some hemodilution causing falsely lower creatinine than real. at this point I would say this is predominantly CKD 5 with significant fluid retention >ordered veltassa to start in AM >ordered renal diet (3) Diabetic ulcer of toe of right foot: Plan: antibioptics per perimary service (4) Kidney disease with fluid retention: Plan: significant fluid retention with bilateral lower extremity edema causing skin breakdown ulcer and now infection which needs to be tackled with both antibiotics as well as diuretics. For the time being we would use Lasix 100 mg IV q.8 hours. I did explain to him that we may need to put a Melendez catheter for convenience and accurate input output measurement. We will be doing daily labs for monitoring Plan Case complexity high total time spent was 60 minute Admission and Anticipated Discharge Date Admission Date: December 21, 2024 Subjective marked N this am; no other acute interval evens clinically. ssen on late AM rounds; breathing still pretty sallow/rough Review of Systems 2 Review of Systems: All systems reviewed & are unremarkable except as noted in Subjective Physical Exam 2 Constitutional: well developed, + acute distress (mild w/ breathing) and + obese Eyes: EOM intact bilaterally ENMT: Mouth: + dry oral mucous membranes Respiratory: + labored breathing, able to speak in co mplete sentences and + tachypneic; + abnormal respiratory effort and no respiratory distress A uscultation: + diminished lung sounds Cardiovascular: Rate/Rhythm: regular rate and regular rhythm Extremities: + edema (2++ distally) Gastrointestinal (Abdomen): Inspection/Auscultation: normal bowel sounds P ercussion/Palpation: abdomen soft; abdomen nontender Musculoskeletal: Extremities: + limited ROM of extremities (L arm in sling) and + abnormal strength Skin: no rashes, warm and dry + ulcer (BL pretibial and BL toes not examined; dressings cdi) Neurologic: miles fluent speech limited insight Psychiatric: Orientation: alert and oriented x 3 (but slightly confused at times today) Results & Data Vital Signs (Past 12 Hours) Vital Signs Temp Pulse Pulse Resp BP BP Pulse Ox 12/27/24 11:26 36.6 C 64 16 133/69 99 12/27/24 07:47 36.2 C L 68 18 137/78 99 12/27/24 07:24 65 12/27/24 02:52 36.9 C 72 16 120/74 98 O2 Del Method O2 Flow Rate 12/27/24 11:26 Nasal Cannula 2 12/27/24 07:47 Nasal Cannula 2 12/27/24 07:24 12/27/24 02:52 Nasal Cannula 2 Laboratory Results 12/27/24 07:06 12/27/24 07:06
[2024-12-27] MEDS: ONDANSETRON INJ 2 MG/ML 2 ML VIAL IV PRN (15:30)
--- NOTE | 2024-12-27 15:45 | XRay Report ---
KUB HISTORY: N/V COMPARISON STUDY: CT scan dated 09/02/2023 FINDINGS: There is diffuse groundglass opacity involving a protruding abdomen suspicious for ascites. There are no definite evidence of bowel obstruction. Image quality is limited by body habitus and as citic fluid. 3 segment lumbar spinal fusion is noted. IMPRESSION: Technically limited examination. Probable ascites. No definite evidence of obstruction. C onsider CT if clinical symptoms warrant. ACT 112: Negative or not required by law. The above report was generated using voice recognition software. It may contain grammatical, syntax o r spelling errors. Electronically signed by: Ayla Rey M.D. 12/27/2024 3:44 PM
--- NOTE | 2024-12-27 20:31 | Communication Note ---
Date of Service: December 27, 2024 Late entry note notified earlier today by t/c from pt dtr they are cancelling family meeting d/t dtr feeling unwell. She was not able to give a preferred date/time to reschedule. Nephro updated pt not seen NO charge submitted TS 15min Thank you for allowing us to participate in the ongoing care of this patient. Please page with any additional concerns. Brayan Mejia DNP Director, Palliative Medicine
[2024-12-28 05:57] LABS: Basophils # (auto) 0.05 K/uL (0.00-0.20); Basophils % (auto) 0.7 %; Eosinophils % (auto) 4.1 %; Hematocrit (blood only) 32.6 % (42.0-52.0); Hemoglobin 10.5 g/dl (14.0-18.0); Immature Granulocytes # (auto) 0.19 K/uL (0.01-0.20); Immature Granulocytes % (auto) 2.6 %; Lymphocytes # (auto) 0.32 K/uL (1.20-3.40); Lymphocytes % (auto) 4.4 %; Mean Corpuscular Hemoglobin 27.6 pg (25.0-34.0); Mean Corpuscular Hgb Conc 32.2 g/dL (32.0-36.0); Mean Corpuscular Volume 85.8 fL (80.0-100.0); Mean Platelet Volume 11.4 fL (9.4-12.4); Monocytes # (auto) 0.51 K/uL (0.11-0.59); Monocytes % (auto) 6.9 %; Neutrophils # (auto) 5.98 K/uL (1.40-6.50); Neutrophils % (auto) 81.3 %; Platelet Count 160 K/uL (130-400); RDW Coefficient of Variation 17.6 % (11.5-14.5); RDW Standard Deviation 55.7 fL (36.4-46.3); White Blood Count 7.35 K/ul (4.8-10.8)
[2024-12-28 06:23] LABS: Albumin Globulin Ratio 1.2 (0.9-2); Albumin Level 3.6 gm/dl (3.4-5.0); BUN Creatinine Ratio 26.7 (10-20); Bilirubin,Total 1.2 mg/dl (0.2-1.0); Calcium 9.7 mg/dl (8.6-10.3); Creatinine Clr Calc Pharmacy 11.2 ml/min; Magnesium 1.7 mg/dl (1.7-2.4); Phosphorus 5.2 mg/dl (2.5-4.9); Potassium 5.5 mmol/L (3.5-5.1); Total Protein 6.6 gm/dl (6.0-8.3)
[2024-12-28 06:30] LABS: INR 2.4 (0.9-1.1); Prothrombin Time 24.1 Seconds (9.0-12.0)
[2024-12-28] MEDS: PATIROMER CALCIUM SORBITEX 8.4 GM PACK PO SCH (13:37)
[2024-12-28] MEDS: METOCLOPRAMIDE HCL INJ 5 MG/ML 2 ML VIAL IV PRN (13:37)
[2024-12-28] MEDS: LORazepam 2 MG/1 ML VIAL IV PRN (14:10)
--- NOTE | 2024-12-28 14:13 | Hospitalist Progress Note ---
Date of Service December 28, 2024 Assessment & Plan (1) Fever: (2) Venous stasis ulcers of both lower extremities: (3) Type 2 diabetes mellitus: (4) Atrial fibrillation: (5) Hypertension: (6) COPD (chronic obstructive pulmonary disease): (7) Chronic heart failure with preserved ejection fraction (HFpEF): (8) CAD (coronary artery disease): Plan Patient is an 84 year old male with PMHx significant for HTN, atrial fibrillation anticoagulated on warfarin, chronic HFpEF, DM II, previous history CKD V on HD and now current CKD IV no longer on HD, CAD, COPD, hypothyroidism, chronic thrombocytopenia, BENI, ABRAN on 2.5L oxygen at bedtime, gout, history amputation left second toe who presented to the ER with concern for wound to right lower leg, profoundly volume overloaded with kidney disease requiring dialysis. See above discussion, patient is transitioning to comfort focused care. Discussed case with nephrology. He is currently being treated for the following: #CKD V #End Stage Renal Failure -patient having electrolyte abnormalities, uremia, signs of need for dialysis -patient does not want dialysis -see above, transitioning patient to comfort focused care Plan: -stop tramadol/gabapentin, start dilaudid 1mg PO q4hr prn for pain, uptitrate as needed -start ativan 0.5 mg for anxiety -mouth care, oral care, supportive care order set started -senior case manager consult for hospice #Sepsis, resolved #Cellulitis #Lower extremity wounds -Secondary to infected RLE wound -History of venous stasis -Wound culture currently growing pseudomonas -Blood cultures NGTD Plan: -Wound nurse consult -stop abx given sufficient course #Acute hypoxic respiratory failure #Dyspnea on exertion #Pulmonary HTN -hx chronic COPD -ABRAN status post surgery/nocturnal hypoxemia on home O2 at night -chest xray noting infiltrate vs atelectasis Plan: -Neb treatment as needed SOB/wheezing -Oxygen supplementation as needed for comfort #Chronic anemia -hemoglobin downtrended to 9.8 -Anemia panel noting iron deficiency #A-fib -on metoprolol and Coumadin -INR currently therapeutic #Diastolic Heart Failure #Dyspnea on exertion #Lower extremity swelling -Noted on echo from 2022 -Pt with significant lower extremity edema -Usually on torsemide 200mg BID at home Plan: -Cardiology consulted, appreciate recs -Nephrology consulted, appreciate recs Other Chronic Medical problems: -Valvular heart disease (mild AR/TR) -DM2 on oral medications, reasonable control as of recent hemoglobin A1c of 7.07 September 2024 -Hypothyroidism, euthyroid as of recent outpatient TSH -GERD on PPI -Rheumatoid arthritis I spent a total of 65 minutes in direct patient care, including [id number] time with the patient and/or family, reviewing medical records, ordering and reviewing diagnostic tests, and coordinating care with other healthcare providers. This time includes: history taking, physical examination, medical decision making, counseling, ECG interpretation, imaging interpretation, lab interpretation, orders, and education, excluding time spent in the performance of separately billed services. I spent a total of 60 minutes providing advanced care planning to the patient and/or family, including [id number] time discussing the patient's health status, prognosis, and treatment options. This time includes specific activities such as: discussing advance directives, goals of care, prognostication, and end-of-life planning. Admission and Anticipated Discharge Date Admission Date: December 21, 2024 Subjective Patient seen and examined at bedside. Had long goals of care discussion with patient, , daughter. See below for details of that conversation. He states he is having some back pain. He also states he is feeling slightly confused today. He expresses frustration with his current condition and continues to not want dialysis under any circumstances. Also has some nausea. Advanced Care Planning: spent 1 hour of time with , daughter, and patient. Discussed plan of care and goals of care with the patient, , daughter at bedside. Meeting started by introducing myself and my role in the care team. and daughter introduce themselves as well along with the patient. Discussion occurred initially in patient room, then patient asked this provider to go talk to and daughter outside the room with him not present. With the patient alone, I discussed his current critical medical condition which includes end-stage renal disease, and discussed the patient's wishes not to have dialysis. Patient was alert Nema are oriented x 3 throughout the entire conversation. Patient able to make his own medical decisions. Patient states he would not want dialysis under any circumstance, even if it means he dies. He understands his kidneys are failing. He has had dialysis in the past and does not want any further dialysis as he states it was hard on his body. He states he does not want to suffer at end-of-life and wants to be comfortable. With and daughter, I discussed the same items as listed above. and daughter had many questions regarding prognosis. Based on his renal failure, and after discussions with nephrology, patient likely has days to weeks to live. This is based off of his developing uremia and electrolyte abnormalities. Average length of life for someone who foregoes dialysis that needs it is somewhere on the scale of 10 to 14 days. and daughter reiterate patient has emphasized that he does not want dialysis under any circumstances. He states they would love for him to go home with them. They are able to provide care at home. 2 options were provided to the family and patient. 1 option is to continue with supportive care with the understanding this is unlikely to improve. Other option is to focus on comfort care at this time, treating symptoms rather than the underlying illness With the understanding there is nothing that is able to be fixed at this time. They understand this disease is terminal. Daughter and feel that he would want a comfort focused approach. Questions about hospice were answered to best my ability, discussed Medicare benefit, discussed different settings of hospice. Conversation transition back to the patient room and options were discussed with the patient as well. Patient states he would like to go home and get out of the hospital bed. He he would like comfort focused care at this time. Plan established with family is for case management to talk to patient and family in regards to disposition, choosing a hospice agency, and other questions about hospice care. Review of Systems Review of Systems: CONSTITUTIONAL: fatigue EYES: Patient denies any visual symptoms. EARS, NOSE, AND THROAT: No difficulties with hearing. No symptoms of rhinitis or sore throat. CARDIOVASCULAR: Patient denies chest pains, palpitations, orthopnea and paroxysmal nocturnal dyspnea. RESPIRATORY: shortness of breath GI: nausea noted : No urinary hesitancy or dribbling. No nocturia or urinary frequency. No abnormal urethral discharge. MUSCULOSKELETAL: diffuse weakness NEUROLOGIC: No chronic headaches, no seizures. Patient denies numbness, tingling or weakness. PSYCHIATRIC: Patient denies problems with mood disturbance. No problems with an xiety. ENDOCRINE: No excessive urination or excessive thirst. DERMATOLOGIC: Patient denies any rashes or skin changes. Physical Exam Physical Exam: Gen: A&O 3 NAD HEENT: NCAT, EOMI, not icteric. External ears normal. No rhinorrhea. Moist mucous membranes. Neck: Supple, full range of motion, no observable masses, No meningeal sign. Lungs: No Respiratory distress. CV: RRR, trace pitting edema in legs bilaterally Abdomen: Soft, nondistended, No rebound tenderness. MSK: No joint swelling, no redness. Skin: No rashes, petechiae, lesions. Normal color per patient. Neuro: Normal Gait, Grossly intact. Psych: Appropriate for situation. Results & Data Results & Data Vital Signs (Past 12 Hours) Vital Signs Temp Pulse Pulse Resp BP BP Pulse Ox 12/28/24 11:06 36.7 C 82 16 138/73 97 12/28/24 07:59 12/28/24 07:26 36.6 C 62 16 147/88 H 99 12/28/24 07:11 77 O2 Del Method O2 Flow Rate 12/28/24 11:06 Nasal Cannula 2 12/28/24 07:59 Room Air, Nasal Cannula 12/28/24 07:26 Room Air 12/28/24 07:11 Laboratory Results -personally interpreted, elevated potassium of 5.5 and worsening creatinine consistent with end stage renal disease, alk phos increasing likely 2/2 volume, some uremia noted as well
[2024-12-28] MEDS ORDERED: LORazepam 2 MG/1 ML VIAL IV PRN (17:48)
--- NOTE | 2024-12-29 12:56 | Hospitalist Progress Note ---
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 See above discussion, patient is transitioning to comfort focused care. Discussed case with nephrology. He is currently being treated for the following: #CKD V #End Stage Renal Failure -patient having electrolyte abnormalities, uremia, signs of need for dialysis -patient does not want dialysis -see above, transitioning patient to comfort focused care Plan: -continue dilaudid 1mg PO q4hr prn for pain, uptitrate as needed -stop ativan, start clonazepam 0.25 mg q8hr prn for muscle twitchinv -mouth care, oral care, supportive care order set started -case briefer consult for hospice, family has chosen [facility] #Sepsis, resolved #Cellulitis #Lower extremity wounds -Secondary to infected RLE wound -History of venous stasis -Wound culture currently growing pseudomonas -Blood cultures NGTD Plan: -Wound nurse consult -stop abx given sufficient course #Acute hypoxic respiratory failure #Dyspnea on exertion #Pulmonary HTN -hx chronic COPD -ABRAN status post surgery/nocturnal hypoxemia on home O2 at night -chest xray noting infiltrate vs atelectasis Plan: -Neb treatment as needed SOB/wheezing -Oxygen supplementation as needed for comfort #Chronic anemia -hemoglobin downtrended to 9.8 -Anemia panel noting iron deficiency #A-fib -on metoprolol and Coumadin #Diastolic Heart Failure #Dyspnea on exertion #Lower extremity swelling -Noted on echo from 2022 -Pt with significant lower extremity edema -Usually on torsemide 200mg BID at home Plan: -Cardiology consulted, appreciate recs -Nephrology consulted, appreciate recs Other Chronic Medical problems: -Valvular heart disease (mild AR/TR) -DM2 on oral medications, reasonable control as of recent hemoglobin A1c of 7.07 September 2024 -Hypothyroidism, euthyroid as of recent outpatient TSH -GERD on PPI -Rheumatoid arthritis I spent a total of 45 minutes in direct patient care, including [id number] time with the patient and/or family, reviewing medical records, ordering and reviewing diagnostic tests, and coordinating care with other healthcare providers. This time includes: history taking, physical examination, medical decision making, counseling, ECG interpretation, imaging interpretation, lab interpretation, orders, and education, excluding time spent in the performance of separately billed services. Admission and Anticipated Discharge Date Admission Date: December 21, 2024 Subjective patient seen and examined at bedside. Patient seems to be doing better today, fasciculations noted to have improved slightly. Family is content with symptom control. Discussed hospice options, patient is interested in signing on with [facility], discussed with case briefer. Review of Systems Review of Systems: CONSTITUTIONAL: fatigue EYES: Patient denies any visual symptoms. EARS, NOSE, AND THROAT: No difficulties with hearing. No symptoms of rhinitis or sore throat. CARDIOVASCULAR: Patient denies chest pains, palpitations, orthopnea and paroxysmal nocturnal dyspnea. RESPIRATORY: shortness of breath GI: nausea noted : No urinary hesitancy or dribbling. No nocturia or urinary frequency. No abnormal urethral discharge. MUSCULOSKELETAL: diffuse weakness, some muscle fasiculations noted NEUROLOGIC: No chronic headaches, no seizures. Patient denies numbness, tingling or weakness. PSYCHIATRIC: Patient denies problems with mood disturbance. No problems with anxiety. ENDOCRINE: No excessive urination or excessive thirst. DERMATOLOGIC: Patient denies any rashes or skin changes. Physical Exam Physical Exam: Gen: A&O 3 NAD HEENT: NCAT, EOMI, not icteric. External ears normal. No rhinorrhea. Moist mucous membranes. Neck: Supple, full range of motion, no observable masses, No meningeal sign. Lungs: No Respiratory distress. CV: RRR, trace pitting edema in legs bilaterally Abdomen: Soft, nondistended, No rebound tenderness. MSK: No joint swelling, no redness. muscle twitching in hands bilaterally Skin: No rashes, petechiae, lesions. Normal color per patient. Neuro: Normal Gait, Grossly intact. Psych: Appropriate for situation. Results & Data Results & Data Vital Signs (Past 12 Hours) Vital Signs Temp Pulse Resp BP Pulse Ox O2 Del Method 12/29/24 09:20 Room Air 12/29/24 08:43 36.4 C L 69 18 134/82 96 Room Air Laboratory Results -no labs due to comfort care Medications Administered Allopurinol (Allopurinol 100 Mg Tab) 50 mg PO DAILY ASIM Stop: 01/21/25 08:59 Last Admin: 12/29/24 09:04 Dose: 50 mg Documented By: Admin: 12/28/24 08:32 Dose: 50 mg Documented By: Admin: 12/27/24 09:49 Dose: 50 mg Documented By: Admin: 12/26/24 08:18 Dose: 50 mg Documented By: Admin: 12/25/24 08:23 Dose: 50 mg Documented By: Admin: 12/24/24 07:36 Dose: 50 mg Documented By: Admin: 12/23/24 08:10 Dose: 50 mg Documented By: Admin: 12/22/24 09:50 Dose: 50 mg Documented By: AMARA Fluticasone/Vilanterol (Fluticasone/Vilanterol 100/25mcg 14 Puffs/Inhaler) 1 puffs INH DAILY ASIM Stop: 01/21/25 08:59 Last Admin: 12/29/24 09:20 Dose: 1 puffs Documented By: Admin: 12/28/24 08:33 Dose: 1 puffs Documented By: Admin: 12/27/24 09:51 Dose: 1 puffs Documented By: Admin: 12/26/24 08:17 Dose: 1 puffs Documented By: Admin: 12/25/24 08:24 Dose: 1 puffs Documented By: Admin: 12/24/24 07:37 Dose: 1 puffs Documented By: Admin: 12/23/24 08:09 Dose: 1 puffs Documented By: Admin: 12/22/24 09:49 Dose: 1 puffs Documented By: AMARA Levothyroxine Sodium (Levothyroxine Sodium 88 Mcg Tablet) 88 mcg PO DAILYBB ASIM Stop: 01/21/25 06:29 Last Admin: 12/29/24 06:12 Dose: 88 mcg Documented By: Admin: 12/28/24 05:55 Dose: 88 mcg Documented By: Admin: 12/27/24 05:30 Dose: 88 mcg Documented By: Admin: 12/26/24 06:04 Dose: 88 mcg Documented By: JANET(2) Admin: 12/25/24 05:39 Dose: 88 mcg Documented By: JANET(2) Admin: 12/24/24 05:53 Dose: 88 mcg Documented By: JANET(2) Admin: 12/23/24 06:30 Dose: 88 mcg Documented By: KATI(2) Admin: 12/22/24 06:20 Dose: 88 mcg Documented By: LIGIA Melatonin (Melatonin 3 Mg Tab) 3 mg PO HS PRN PRN Reason: Sleep Stop: 01/22/25 23:40 Last Admin: 12/26/24 20:51 Dose: 3 mg Documented By: Admin: 12/25/24 21:06 Dose: 3 mg Documented By: JANET(2) Admin: 12/24/24 21:31 Dose: 3 mg Documented By: JANET(2) Admin: 12/23/24 23:58 Dose: 3 mg Documented By: JANET(2) Metoclopramide HCl (Metoclopramide Hcl Inj 5 Mg/Ml 2 Ml Vial) 10 mg IV Q6H PRN PRN Reason: Nausea Stop: 01/27/25 13:21 Last Admin: 12/28/24 13:37 Dose: 10 mg Documented By: KIKI Metoprolol Succinate (Metoprolol Succ 25mg Ext Rel Tab) 125 mg PO AMHS ASIM Stop: 01/23/25 20:59 Last Admin: 12/29/24 09:04 Dose: 125 mg Documented By: Admin: 12/28/24 21:29 Dose: 125 mg Documented By: Admin: 12/28/24 08:32 Dose: 125 mg Documented By: Admin: 12/27/24 21:54 Dose: 125 mg Documented By: Admin: 12/27/24 09:48 Dose: 125 mg Documented By: Admin: 12/26/24 20:45 Dose: 125 mg Documented By: Admin: 12/26/24 08:17 Dose: 125 mg Documented By: Admin: 12/25/24 21:05 Dose: 125 mg Documented By: JANET(2) Admin: 12/25/24 08:24 Dose: 125 mg Documented By: Admin: 12/24/24 21:32 Dose: 125 mg Documented By: JANET(2) Multivitamins ([facility]ivitamin Tab) [facility] [place]: 01/21/25 08:59 Last Admin: 12/29/24 09:05 Dose: 1 tab Documented By: Admin: 12/28/24 08:31 Dose: 1 tab Documented By: Admin: 12/27/24 09:50 Dose: 1 tab Documented By: Admin: 12/26/24 08:18 Dose: 1 tab Documented By: Admin: 12/25/24 08:24 Dose: 1 tab Documented By: Admin: 12/24/24 07:36 Dose: 1 tab Documented By: Admin: 12/23/24 08:10 Dose: 1 tab Documented By: Admin: 12/22/24 09:52 Dose: 1 tab Documented By: AMARA Ondansetron HCl (Ondansetron Inj 2 Mg/Ml 2 Ml Vial) 4 mg IV Q6H PRN PRN Reason: Nausea And Vomiting Stop: 01/26/25 14:57 Last Admin: 12/28/24 10:48 Dose: 4 mg Documented By: Admin: 12/27/24 15:30 Dose: 4 mg Documented By: ENDER Pantoprazole Sodium (Pantoprazole 40 Mg Tab) [facility] [place]: 01/21/25 08:59 Last Admin: 12/29/24 09:05 Dose: 40 mg Documented By: Admin: 12/28/24 08:32 Dose: 40 mg Documented By: Admin: 12/27/24 09:51 Dose: 40 mg Documented By: Admin: 12/26/24 08:17 Dose: 40 mg Documented By: Admin: 12/25/24 08:24 Dose: 40 mg Documented By: Admin: 12/24/24 07:35 Dose: 40 mg Documented By: Admin: 12/23/24 08:09 Dose: 40 mg Documented By: Admin: 12/22/24 09:49 Dose: 40 mg Documented By: AMARA Patiromer (Patiromer Calcium Sorbitex 8.4 Gm Pack) 8.4 gm PO DAILY@1200 [facility] Stop: 01/27/25 11:59 Last Admin: 12/29/24 11:45 Dose: Not Given Documented By: Admin: 12/28/24 13:37 Dose: 8.4 gm Documented By: KIKI Tamsulosin HCl (Tamsulosin Hcl 0.4 Mg Cap) 0.4 mg PO QAM [facility] Stop: 01/21/25 08:59 Last Admin: 12/29/24 09:05 Dose: 0.4 mg Documented By: Admin: 12/28/24 08:33 Dose: 0.4 mg Documented By: Admin: 12/27/24 09:50 Dose: 0.4 mg Documented By: Admin: 12/26/24 08:17 Dose: 0.4 mg Documented By: Admin: 12/25/24 08:24 Dose: 0.4 mg Documented By: Admin: 12/24/24 07:36 Dose: 0.4 mg Documented By: Admin: 12/23/24 08:10 Dose: 0.4 mg Documented By: Admin: 12/22/24 09:52 Dose: 0.4 mg Documented By: AMARA Warfarin Sodium (Warfarin Sod 5 Mg Tab) 5 mg PO SuTuTh@1600 [facility] Stop: 01/21/25 18:34 Last Admin: 12/27/24 17:52 Dose: 5 mg Documented By: Admin: 12/25/24 15:48 Dose: 5 mg Documented By: Admin: 12/22/24 20:15 Dose: 5 mg Documented By: KATI(2) Warfarin Sodium (Warfarin Sod 2.5 Mg Tab) 2.5 mg PO MoWeFrSa@1600 [facility] Stop: 01/22/25 18:29 Last Admin: 12/28/24 17:09 Dose: 2.5 mg Documented By: Admin: 12/26/24 16:14 Dose: 2.5 mg Documented By: Admin: 12/24/24 15:17 Dose: 2.5 mg Documented By: ESSIE
[2024-12-30] MEDS: HYDROmorphone INJ 0.5 MG/0.5 ML SYR IV PRN (02:34)
[2024-12-30] MEDS: HYDROmorphone HCL 2 MG TAB PO PRN (10:23)
--- NOTE | 2024-12-30 17:59 | Hospitalist Progress Note ---
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 See above discussion, patient is transitioning to comfort focused care. Discussed case with nephrology. He is currently being treated for the following: #CKD V #End Stage Renal Failure -patient having electrolyte abnormalities, uremia, signs of need for dialysis -patient does not want dialysis -see above, patient comfort focused care Plan: -continue dilaudid 1mg PO q4hr prn for pain, uptitrate as needed -stop ativan, start clonazepam 0.25 mg q8hr prn for muscle twitchinv -mouth care, oral care, supportive care order set started -shoe parts caser consult for hospice, family has chosen [facility], will discharge home Thursday with home hospice services -sent hospice care kit to patients preferred pharmacy [place] #Sepsis, resolved #Cellulitis #Lower extremity wounds -Secondary to infected RLE wound -History of venous stasis -Blood cultures NGTD #Acute hypoxic respiratory failure #Dyspnea on exertion #Pulmonary HTN -hx chronic COPD -ABRAN status post surgery/nocturnal hypoxemia on home O2 at night -chest xray noting infiltrate vs atelectasis Plan: -Neb treatment as needed SOB/wheezing -Oxygen supplementation as needed for comfort #Chronic anemia -hemoglobin downtrended to 9.8 -Anemia panel noting iron deficiency #A-fib -on metoprolol and Coumadin #Diastolic Heart Failure #Dyspnea on exertion #Lower extremity swelling -Noted on echo from 2022 -Pt with significant lower extremity edema -Usually on torsemide 200mg BID at home Other Chronic Medical problems: -Valvular heart disease (mild AR/TR) -DM2 on oral medications, reasonable control as of recent hemoglobin A1c of 7.07 September 2024 -Hypothyroidism, euthyroid as of recent outpatient TSH -GERD on PPI -Rheumatoid arthritis I spent a total of 40 minutes in direct patient care, including [id number] time with the patient and/or family, reviewing medical records, ordering and reviewing diagnostic tests, and coordinating care with other healthcare providers. This time includes: history taking, physical examination, medical decision making, counseling, ECG interpretation, imaging interpretation, lab interpretation, orders, and education, excluding time spent in the performance of separately billed services. Admission and Anticipated Discharge Date Admission Date: December 21, 2024 Subjective patient seen and examined at bedside. Patient is doing okay today. He states he is anxious and in pain, wants to try some pain medication. Discussed disposition plans with and daughter, who are in agreement of his Thursday discharge. Review of Systems Review of Systems: CONSTITUTIONAL: fatigue, pain, anxiety EYES: Patient denies any visual symptoms. EARS, NOSE, AND THROAT: No difficulties with hearing. No symptoms of rhinitis or sore throat. CARDIOVASCULAR: Patient denies chest pains, palpitations, orthopnea and paroxysmal nocturnal dyspnea. RESPIRATORY: shortness of breath GI: nausea noted : No urinary hesitancy or dribbling. No nocturia or urinary frequency. No abnormal urethral discharge. MUSCULOSKELETAL: diffuse weakness, some muscle fasiculations noted improved from prior NEUROLOGIC: No chronic headaches, no seizures. Patient denies numbness, tingling or weakness. PSYCHIATRIC: Patient denies problems with mood disturbance. No problems with anxiety. ENDOCRINE: No excessive urination or excessive thirst. DERMATOLOGIC: Patient denies any rashes or skin changes. Physical Exam Physical Exam: Gen: A&O 3 NAD HEENT: NCAT, EOMI, not icteric. External ears normal. No rhinorrhea. Moist mucous membranes. Neck: Supple, full range of motion, no observable masses, No meningeal sign. Lungs: No Respiratory distress. CV: RRR, trace pitting edema in legs bilaterally Abdomen: Soft, nondistended, No rebound tenderness. MSK: No joint swelling, no redness. muscle twitching in hands bilaterally improved from prior Skin: No rashes, petechiae, lesions. Normal color per patient. Neuro: Normal Gait, Grossly intact. Psych: Appropriate for situation. Results & Data Results & Data Vital Signs (Past 12 Hours) Vital Signs Temp Pulse Resp BP Pulse Ox O2 Del Method 12/30/24 14:57 36.3 C L 57 L 16 133/80 96 Room Air 12/30/24 09:00 Room Air 12/30/24 08:00 36.5 C 57 L 16 142/77 H 97 Room Air
[2024-12-31 07:27] LABS: INR 3.7 (0.9-1.1); Prothrombin Time 36.1 Seconds (9.0-12.0)
--- NOTE | 2024-12-31 14:27 | Hospitalist Progress Note ---
Date of Service December 31, 2024 Assessment & Plan (1) Fever: (2) Venous stasis ulcers of both lower extremities: (3) Type 2 diabetes mellitus: (4) Atrial fibrillation: (5) Hypertension: (6) COPD (chronic obstructive pulmonary disease): (7) Chronic heart failure with preserved ejection fraction (HFpEF): (8) CAD (coronary artery disease): Plan Patient is an 84 year old male with PMHx significant for HTN, atrial fibrillation anticoagulated on warfarin, chronic HFpEF, DM II, previous history CKD V on HD and now current CKD IV no longer on HD, CAD, COPD, hypothyroidism, chronic thrombocytopenia, BENI, ABRAN on 2.5L oxygen at bedtime, gout, history amputation left second toe who presented to the ER with concern for wound to right lower leg, profoundly volume overloaded with kidney disease requiring dialysis. See above discussion, patient is transitioning to comfort focused care. Discussed case with nephrology. He is currently being treated for the following: #CKD V #End Stage Renal Failure -patient having electrolyte abnormalities, uremia, signs of need for dialysis -patient does not want dialysis -see above, patient comfort focused care Plan: -continue dilaudid 1mg PO q4hr prn for pain, uptitrate as needed -continue clonazepam 0.25 mg q8hr prn for muscle twitching -mouth care, oral care, supportive care order set started -classification case manager consult for hospice, family has chosen [facility], will discharge home Thursday with home hospice services -sent hospice care kit to patients preferred pharmacy in preoperation #Sepsis, resolved #Cellulitis #Lower extremity wounds -Secondary to infected RLE wound -History of venous stasis -Blood cultures NGTD #Acute hypoxic respiratory failure #Dyspnea on exertion #Pulmonary HTN -hx chronic COPD -ABRAN status post surgery/nocturnal hypoxemia on home O2 at night -chest xray noting infiltrate vs atelectasis Plan: -Neb treatment as needed SOB/wheezing -Oxygen supplementation as needed for comfort #Chronic anemia -hemoglobin downtrended to 9.8 #A-fib -on metoprolol and Coumadin -per family request, continue coumadin on hospice #Diastolic Heart Failure #Dyspnea on exertion #Lower extremity swelling -Noted on echo from 2022 -Pt with significant lower extremity edema -Usually on torsemide 200mg BID at home Other Chronic Medical problems: -Valvular heart disease (mild AR/TR) -DM2 on oral medications, reasonable control as of recent hemoglobin A1c of 7.07 September 2024 -Hypothyroidism, euthyroid as of recent outpatient TSH -GERD on PPI -Rheumatoid arthritis I spent a total of 45 minutes in direct patient care, including [id number] time with the patient and/or family, reviewing medical records, ordering and reviewing diagnostic tests, and coordinating care with other healthcare providers. This time includes: history taking, physical examination, medical decision making, counseling, ECG interpretation, imaging interpretation, lab interpretation, orders, and education, excluding time spent in the performance of separately billed services. Admission and Anticipated Discharge Date Admission Date: December 21, 2024 Subjective patient seen and examined at bedside. Patient doing okay today. States he is a little anxious. Has a little bit of pain. Did not sleep well overnight. Discussed at length with daughter the concept of hospice, what to expect on hospice, and the dying process. She was appreciative of the information and update. Review of Systems Review of Systems: CONSTITUTIONAL: fatigue, pain, anxiety, slightly better than yesterday EYES: Patient denies any visual symptoms. EARS, NOSE, AND THROAT: No difficulties with hearing. No symptoms of rhinitis or sore throat. CARDIOVASCULAR: Patient denies chest pains, palpitations, orthopnea and paroxysmal nocturnal dyspnea. RESPIRATORY: shortness of breath GI: none : No urinary hesitancy or dribbling. No nocturia or urinary frequency. No abnormal urethral discharge. MUSCULOSKELETAL: diffuse weakness, some muscle fasciculations noted improved from prior NEUROLOGIC: No chronic headaches, no seizures. Patient denies numbness, tingling or weakness. PSYCHIATRIC: Patient denies problems with mood disturbance. No problems with anxiety. ENDOCRINE: No excessive urination or excessive thirst. DERMATOLOGIC: Patient denies any rashes or skin changes. Physical Exam Physical Exam: Gen: A&O 3 NAD HEENT: NCAT, EOMI, not icteric. External ears normal. No rhinorrhea. Moist mucous membranes. Neck: Supple, full range of motion, no observable masses, No meningeal sign. Lungs: No Respiratory distress. CV: RRR, trace pitting edema in legs bilaterally Abdomen: Soft, nondistended, No rebound tenderness. MSK: No joint swelling, no redness. muscle twitching in hands bilaterally improved from prior Skin: No rashes, petechiae, lesions. Normal color per patient. Neuro: Normal Gait, Grossly intact. Psych: Appropriate for situation. Results & Data Results & Data Vital Signs (Past 12 Hours) Vital Signs O2 Del Method O2 Flow Rate 12/31/24 08:46 Nasal Cannula 2 Laboratory Results -elevated INR, personally interpreted Medications Administered Allopurinol (Allopurinol 100 Mg Tab) 50 mg PO DAILY [facility] Stop: 01/21/25 08:59 Last Admin: 12/31/24 08:28 Dose: 50 mg Documented By: Admin: 12/30/24 08:48 Dose: 50 mg Documented By: Admin: 12/29/24 09:04 Dose: 50 mg Documented By: Admin: 12/28/24 08:32 Dose: 50 mg Documented By: Admin: 12/27/24 09:49 Dose: 50 mg Documented By: Admin: 12/26/24 08:18 Dose: 50 mg Documented By: Admin: 12/25/24 08:23 Dose: 50 mg Documented By: Admin: 12/24/24 07:36 Dose: 50 mg Documented By: Admin: 12/23/24 08:10 Dose: 50 mg Documented By: Admin: 12/22/24 09:50 Dose: 50 mg Documented By: AMARA Fluticasone/Vilanterol (Fluticasone/Vilanterol 100/25mcg 14 Puffs/Inhaler) 1 puffs INH DAILY [facility] Stop: 01/21/25 08:59 Last Admin: 12/31/24 08:29 Dose: 1 puffs Documented By: Admin: 12/30/24 08:48 Dose: 1 puffs Documented By: Admin: 12/29/24 09:20 Dose: 1 puffs Documented By: Admin: 12/28/24 08:33 Dose: 1 puffs Documented By: Admin: 12/27/24 09:51 Dose: 1 puffs Documented By: Admin: 12/26/24 08:17 Dose: 1 puffs Documented By: Admin: 12/25/24 08:24 Dose: 1 puffs Documented By: Admin: 12/24/24 07:37 Dose: 1 puffs Documented By: Admin: 12/23/24 08:09 Dose: 1 puffs Documented By: Admin: 12/22/24 09:49 Dose: 1 puffs Documented By: AMARA Hydromorphone HCl (Hydromorphone Hcl 2 Mg Tab) 1 mg PO Q4 PRN PRN Reason: pain Stop: 01/11/25 07:52 Last Admin: 12/31/24 05:02 Dose: 1 mg Documented By: Admin: 12/30/24 21:57 Dose: 1 mg Documented By: Admin: 12/30/24 17:23 Dose: 1 mg Documented By: Admin: 12/30/24 10:23 Dose: 1 mg Documented By: ADWOA Hydromorphone HCl (Hydromorphone Inj 0.5 Mg/0.5 Ml Syr) 0.25 mg IV Q4 PRN PRN Reason: Pain Stop: 01/11/25 19:26 Last Admin: 12/30/24 02:34 Dose: 0.25 mg Documented By: JORDIN Levothyroxine Sodium (Levothyroxine Sodium 88 Mcg Tablet) 88 mcg PO DAILYBB ASIM Stop: 01/21/25 06:29 Last Admin: 12/31/24 05:10 Dose: 88 mcg Documented By: Admin: 12/30/24 05:26 Dose: 88 mcg Documented By: Admin: 12/29/24 06:12 Dose: 88 mcg Documented By: Admin: 12/28/24 05:55 Dose: 88 mcg Documented By: Admin: 12/27/24 05:30 Dose: 88 mcg Documented By: Admin: 12/26/24 06:04 Dose: 88 mcg Documented By: JANET(2) Admin: 12/25/24 05:39 Dose: 88 mcg Documented By: JANET(2) Admin: 12/24/24 05:53 Dose: 88 mcg Documented By: JANET(2) Admin: 12/23/24 06:30 Dose: 88 mcg Documented By: KATI(2) Admin: 12/22/24 06:20 Dose: 88 mcg Documented By: LIGIA Melatonin (Melatonin 3 Mg Tab) 3 mg PO HS PRN PRN Reason: Sleep Stop: 01/22/25 23:40 Last Admin: 12/30/24 21:57 Dose: 3 mg Documented By: Admin: 12/30/24 00:51 Dose: 3 mg Documented By: Admin: 12/26/24 20:51 Dose: 3 mg Documented By: Admin: 12/25/24 21:06 Dose: 3 mg Documented By: JANET(2) Admin: 12/24/24 21:31 Dose: 3 mg Documented By: JANET(2) Admin: 12/23/24 23:58 Dose: 3 mg Documented By: JANET(2) Metoclopramide HCl (Metoclopramide Hcl Inj 5 Mg/Ml 2 Ml Vial) 10 mg IV Q6H PRN PRN Reason: Nausea Stop: 01/27/25 13:21 Last Admin: 12/28/24 13:37 Dose: 10 mg Documented By: KIKI Metoprolol Succinate (Metoprolol Succ 25mg Ext Rel Tab) 125 mg PO [facility] Stop: 01/23/25 20:59 Last Admin: 12/31/24 08:28 Dose: 125 mg Documented By: Admin: 12/30/24 21:57 Dose: 125 mg Documented By: Admin: 12/30/24 08:47 Dose: 125 mg Documented By: Admin: 12/29/24 21:45 Dose: 125 mg Documented By: Admin: 12/29/24 09:04 Dose: 125 mg Documented By: Admin: 12/28/24 21:29 Dose: 125 mg Documented By: Admin: 12/28/24 08:32 Dose: 125 mg Documented By: Admin: 12/27/24 21:54 Dose: 125 mg Documented By: Admin: 12/27/24 09:48 Dose: 125 mg Documented By: Admin: 12/26/24 20:45 Dose: 125 mg Documented By: Admin: 12/26/24 08:17 Dose: 125 mg Documented By: Admin: 12/25/24 21:05 Dose: 125 mg Documented By: JANET(2) Admin: 12/25/24 08:24 Dose: 125 mg Documented By: Admin: 12/24/24 21:32 Dose: 125 mg Documented By: JANET(2) [facility]ivitamins ([facility]ivitamin Tab) [facility] [place]: 01/21/25 08:59 Last Admin: 12/31/24 08:29 Dose: 1 tab Documented By: Admin: 12/30/24 08:48 Dose: 1 tab Documented By: Admin: 12/29/24 09:05 Dose: 1 tab Documented By: Admin: 12/28/24 08:31 Dose: 1 tab Documented By: Admin: 12/27/24 09:50 Dose: 1 tab Documented By: Admin: 12/26/24 08:18 Dose: 1 tab Documented By: Admin: 12/25/24 08:24 Dose: 1 tab Documented By: Admin: 12/24/24 07:36 Dose: 1 tab Documented By: Admin: 12/23/24 08:10 Dose: 1 tab Documented By: Admin: 12/22/24 09:52 Dose: 1 tab Documented By: AMARA Ondansetron HCl (Ondansetron Inj 2 Mg/Ml 2 Ml Vial) 4 mg IV Q6H PRN PRN Reason: Nausea And Vomiting Stop: 01/26/25 14:57 Last Admin: 12/30/24 17:24 Dose: 4 mg Documented By: Admin: 12/28/24 10:48 Dose: 4 mg Documented By: Admin: 12/27/24 15:30 Dose: 4 mg Documented By: ENDER Pantoprazole Sodium (Pantoprazole 40 Mg Tab) 40 mg PO QAM [facility] Stop: 01/21/25 08:59 Last Admin: 12/31/24 08:29 Dose: 40 mg Documented By: Admin: 12/30/24 08:48 Dose: 40 mg Documented By: Admin: 12/29/24 09:05 Dose: 40 mg Documented By: Admin: 12/28/24 08:32 Dose: 40 mg Documented By: Admin: 12/27/24 09:51 Dose: 40 mg Documented By: Admin: 12/26/24 08:17 Dose: 40 mg Documented By: Admin: 12/25/24 08:24 Dose: 40 mg Documented By: Admin: 12/24/24 07:35 Dose: 40 mg Documented By: Admin: 12/23/24 08:09 Dose: 40 mg Documented By: Admin: 12/22/24 09:49 Dose: 40 mg Documented By: AMARA Patiromer (Patiromer Calcium Sorbitex 8.4 Gm Pack) 8.4 gm PO DAILY@1200 [facility] Stop: 01/27/25 11:59 Last Admin: 12/31/24 11:02 Dose: Not Given Documented By: Admin: 12/30/24 12:07 Dose: Not Given Documented By: Admin: 12/29/24 11:45 Dose: Not Given Documented By: Admin: 12/28/24 13:37 Dose: 8.4 gm Documented By: KIKI Tamsulosin HCl (Tamsulosin Hcl 0.4 Mg Cap) [facility] [place]: 01/21/25 08:59 Last Admin: 12/31/24 08:28 Dose: 0.4 mg Documented By: Admin: 12/30/24 08:48 Dose: 0.4 mg Documented By: Admin: 12/29/24 09:05 Dose: 0.4 mg Documented By: Admin: 12/28/24 08:33 Dose: 0.4 mg Documented By: Admin: 12/27/24 09:50 Dose: 0.4 mg Documented By: Admin: 12/26/24 08:17 Dose: 0.4 mg Documented By: Admin: 12/25/24 08:24 Dose: 0.4 mg Documented By: Admin: 12/24/24 07:36 Dose: 0.4 mg Documented By: Admin: 12/23/24 08:10 Dose: 0.4 mg Documented By: Admin: 12/22/24 09:52 Dose: 0.4 mg Documented By: AMARA Warfarin Sodium (Warfarin Sod 5 Mg Tab) 5 mg PO SuTuTh@1600 [facility] Stop: 01/21/25 18:34 Last Admin: 12/29/24 15:49 Dose: 5 mg Documented By: Admin: 12/27/24 17:52 Dose: 5 mg Documented By: Admin: 12/25/24 15:48 Dose: 5 mg Documented By: Admin: 12/22/24 20:15 Dose: 5 mg Documented By: KATI(2) Warfarin Sodium (Warfarin Sod 2.5 Mg Tab) 2.5 mg PO MoWeFrSa@1600 [facility] Stop: 01/22/25 18:29 Last Admin: 12/30/24 16:59 Dose: 2.5 mg Documented By: Admin: 12/28/24 17:09 Dose: 2.5 mg Documented By: Admin: 12/26/24 16:14 Dose: 2.5 mg Documented By: Admin: 12/24/24 15:17 Dose: 2.5 mg Documented By: ESSIE
[2024-12-31 20:50] VITALS: O2SAT 98
[2024-12-31] MEDS: clonazePAM 0.25 MG OD TAB PO PRN (20:51)
[2024-12-31] MEDS: POLYETHYLENE (MIRALAX) 17 GM PACK PO PRN (20:52)
[2025-01-01] MEDS: HYDROmorphone HCL 2 MG TAB PO STA (03:40)
[2025-01-01 07:42] LABS: INR 4.2 (0.9-1.1)
[2025-01-01 08:40] VITALS: BP 152/81; PULSE 65; RESP 16; TEMP 97.2
--- NOTE | 2025-01-01 17:22 | Discharge Summary ---
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 See above discussion, patient is transitioning to comfort focused care. Discussed case with nephrology. He is currently being treated for the following: #CKD V #End Stage Renal Failure -patient having electrolyte abnormalities, uremia, signs of need for dialysis -patient does not want dialysis -see above, patient comfort focused care Plan: -continue dilaudid 1mg PO q4hr prn for pain, uptitrate as needed -continue clonazepam 0.25 mg q8hr prn for muscle twitching -mouth care, oral care, supportive care order set started -mental health case manager consult for hospice, family has chosen [facility], will discharge home Thursday with home hospice services -sent hospice care kit to patients preferred pharmacy in preoperation #Sepsis, resolved #Cellulitis #Lower extremity wounds -Secondary to infected RLE wound -History of venous stasis -Blood cultures NGTD #Acute hypoxic respiratory failure #Dyspnea on exertion #Pulmonary HTN -hx chronic COPD -ABRAN status post surgery/nocturnal hypoxemia on home O2 at night -chest xray noting infiltrate vs atelectasis Plan: -Neb treatment as needed SOB/wheezing -Oxygen supplementation as needed for comfort #Chronic anemia -hemoglobin downtrended to 9.8 #A-fib -on metoprolol and Coumadin -per family request, continue coumadin on hospice #Diastolic Heart Failure #Dyspnea on exertion #Lower extremity swelling -Noted on echo from 2022 -Pt with significant lower extremity edema -Usually on torsemide 200mg BID at home Other Chronic Medical problems: -Valvular heart disease (mild AR/TR) -DM2 on oral medications, reasonable control as of recent hemoglobin A1c of 7.07 September 2024 -Hypothyroidism, euthyroid as of recent outpatient TSH -GERD on PPI -Rheumatoid arthritis Notes For Next Care Provider Patient is an 84 year old male with PMHx significant for HTN, atrial fibrillation anticoagulated on warfarin, chronic HFpEF, DM II, previous history CKD V on HD and now current CKD IV no longer on HD, CAD, COPD, hypothyroidism, chronic thrombocytopenia, BENI, ABRAN on 2.5L oxygen at bedtime, gout, history amputation left second toe who presented to the ER with concern for wound to right lower leg, profoundly volume overloaded with kidney disease requiring dialysis. Long discussion with family and patient, patient adamantly does not want dialysis. Per discussion with nephrology, patient will not survive without dialysis. Discussed focusing more on comfort and engaging hospice services with family, and family decided to start comfort focused care. Hospice services were engaged, equipment was delivered to home, care kit was sent by this provider for at home well hospice services are being set up. Equipment was delivered at 12 PM today on 01/01/2025. Patient is ready for discharge home with hospice services Medication Changes From Visit -per hospice Admission HPI Per Admitting Provider Patient is 84 year old male with PMH HTN, atrial fibrillation anticoagulated on warfarin, chronic HFpEF, DM II, previous history CKD V on HD and now current CKD IV no longer on HD, CAD, COPD, hypothyroidism, chronic thrombocytopenia, BENI, ABRAN on 2.5L oxygen at bedtime, gout, history amputation left second toe presented to ER with c/o wound to right lower leg. Per inpatient chart review history of hospitalization 11/03/2024-11/06/2024 for left fourth toe ulcer, diabetic foot infection initially treated with cefepime, daptomycin. MRI negative for osteomyelitis and podiatry was consulted and patient was transitioned to doxycycline and Augmentin. He states finished course and toe is looking better. Patient following with wound clinic for other multiple leg wou nds. Patient states last night Tmax 100.6 F. He reports chronic rhinorrhea and chronic nonproductive cough. He feels has not had any increased rhinorrhea or cough. Patient reports has chronic shortness of breath on exertion which he feels has slowly been progressive. He states uses albuterol inhaler once daily. Unaware of any wheezing. Reports chronic BLE edema, denies any noted increased edema. Home health nurse in to see patient today and noted right lower leg wound with reported green/yellow area that sloughed off with cleansing and with fever was recommended come to ER. Denies N/V/D, GORDON, syncope, CP, palpitations, hemoptysis, sore throat, abdominal pain, other rashes, dysuria, hematuria. Discharge Exam Gen: A&O 2-3 NAD HEENT: NCAT, EOMI, not icteric. External ears normal. No rhinorrhea. Moist mucous membranes. Neck: Supple, full range of motion, no observable masses, No meningeal sign. Lungs: No Respiratory distress. CV: RRR, pitting edema in legs bilaterally Abdomen: Soft, nondistended, No rebound tenderness. MSK: No joint swelling, no redness. muscle twitching in hands bilaterally improved from prior Skin: No rashes, petechiae, lesions. Normal color per patient. Neuro: Normal Gait, Grossly intact. Psych: Appropriate for situation. Updated Medication List Medication Instructions Recorded Confirmed Type isosorbide dinitrate 20 mg tablet 20 mg PO BID 07/23/21 12/21/24 History levothyroxine 88 mcg tablet 88 mcg PO QAM 07/23/21 12/21/24 History metoprolol succinate 100 mg 100 mg PO [facility] 07/23/21 12/21/24 History tablet,extended release 24 hr pantoprazole 40 mg tablet,delayed 40 mg PO QAM 07/23/21 12/21/24 History release tamsulosin 0.4 mg capsule 0.4 mg PO QAM 07/23/21 12/21/24 History torsemide 100 mg tablet 200 mg PO BID 09/12/21 12/21/24 History fluticasone furoate 100 1 inh inhalation DAILY 09/02/23 12/21/24 History mcg-vilanterol 25 mcg/dose inhalation powder (Breo Ellipta) albuterol sulfate 0.63 mg/3 mL 0.63 mg inhalation Q6H PRN 11/03/24 12/21/24 History solution for nebulization Shortness Of Breath Or Wheezing allopurinol 100 mg tablet 50 mg PO DAILY 11/03/24 12/21/24 History losartan 25 mg tablet 25 mg PO DAILY 12/05/24 01/22/25 History warfarin 2.5 mg tablet 2.5 mg PO UD 12/06/24 12/21/24 History bisacodyl 10 mg rectal suppository 10 mg MA DAILY PRN constipation #5 12/30/24 Rx ea clonazepam 0.25 mg disintegrating 0.25 mg PO Q8 PRN anxiety or 12/30/24 Rx tablet spasms 5 days #5 tabs haloperidol 0.5 mg tablet 0.5 mg PO BID PRN agitation 5 days 12/30/24 Rx #7 tabs hydromorphone 2 mg tablet 1 mg (1/2 x 2 mg) PO Q4 PRN pain 5 12/30/24 Rx (Dilaudid) days #15 tabs ondansetron 4 mg disintegrating 4 mg PO DAILY PRN nausea and 12/30/24 Rx tablet vomiting 5 days #20 tabs Hospital Stay Data Consultations 12/21/24 19:43 ED Decision to Admit Stat 12/23/24 08:17 Consult Nephrology Routine 12/23/24 08:19 Consult Cardiology Routine 12/23/24 08:21 Consult Pulmonology Routine 12/25/24 10:59 Consult Palliative Care Routine 12/25/24 11:02 Consult Palliative Care Routine Diagnostic Imagining Performed 12/21/24 20:35 CT tib/fib RT wo con Stat Pending Results Patient Have Any Pending Studies at Discharge: No Discharge Instructions Given to Patient (Per Discharging Provider) 1. Please treat pain, anxiety, and other symptoms as they appear. 2. Treat pain with dilaudid, anxiety/shakes with clonazepam, agitation with haldol, constipation with suppositories, or whatever the hospice team feels is best. Total Time Total Time Spent Total Time Spent (In Minutes): I spent a total of 35 minutes in direct patient care, including [id number] time with the patient and/or family, reviewing medical records, ordering and reviewing diagnostic tests, and coordinating care with other healthcare providers. This time includes: history taking, physical examination, medical decision making, counseling, ECG interpretation, imaging interpretation, lab interpretation, orders, and education, excluding time spent in the performance of separately billed services.
== END 2025-01-01 14:14 | disposition hospice, home (50) | DRG 871 ==
LOC: ED 17:01 → SUATTDRO 22:18 → EDINP 22:18 → 2N 12-22 00:35 → 2W 12-28 14:36